=== PATIENT | male | born 1965 | race Caucasian/White ===

== ENCOUNTER 2016-07-09 16:52 | Inpatient (IN) | payer OTHER ==
[2016-07-09] MEDS ORDERED: SODIUM CHLORIDE 0.9% 1,000 ML IV ONE ×2 (17:37→21:03)
--- NOTE | 2016-07-09 17:43 | ED ---
General Adult HPI - General Source: patient, RN notes reviewed Mode of arrival: wheelchair Limitations: no limitations <Henrry Vega - Last Filed: 07/09/16 18:40> <Maikel Larsen - Last Filed: 07/09/16 20:43> - General Chief complaint: Syncope Stated complaint: Nurse sent/Syncope x2/ poss BP Time Seen by Provider: 07/09/16 17:30 - History of Present Illness Initial comments: This is a 51-year-old male to the emergency department with past medical history significant for CVA with residual deficit of dysphagia so patient has a PEG tube in place and is unable to eat or swallow anything by mouth. Patient states he's been a little bit lightheaded and has passed out twice at home and over the last week his been over 100 heart rate has blood pressures been low and particularly low today in the 80s and 90s according to his home health care nurse. He was sent in because of the syncopal episodes. Patient states she's had no palpitations she had no chest pain patient denies any recent fever chill or new cough. Patient denies any back pain. Patient denies any injury with the syncopal episodes. Patient denies any nausea vomiting or diarrhea. Patient denies headache patient denies any numbness or focal weakness. (Henrry Vega) - Related Data Home Medications Medication Instructions Recorded Confirmed Gabapentin [Neurontin] 300 mg PEG/G-TUBE TID PRN 08/13/15 07/09/16 Insulin Aspart [NovoLOG] See Protocol SQ AC-TID 08/13/15 07/09/16 Aspirin 325 mg PEG/G-TUBE HS 07/09/16 07/09/16 Atorvastatin [Lipitor] 80 mg PEG/G-TUBE HS 07/09/16 07/09/16 Cyclobenzaprine [Flexeril] 10 mg PEG/G-TUBE TID PRN 07/09/16 07/09/16 Insulin Glargine [Lantus] 25 unit SQ HS 07/09/16 07/09/16 Lisinopril 40 mg PEG/G-TUBE DAILY 07/09/16 07/09/16 Previous Rx's Medication Instructions Recorded Ipratropium-Albuterol Nebulize 3 ml INHALATION RT-QID ampul.neb 06/22/16 [Duoneb 0.5 mg-3 mg/3 ml Soln] Allergies Allergy/AdvReac Type Severity Reaction Status Date / Time venom-honey bee Allergy Anaphylaxis Verified 07/09/16 19:47 [bee venom (honey bee)] Review of Systems ROS Other: All systems not noted in ROS Statement are negative. <Henrry Vega - Last Filed: 07/09/16 18:40> ROS Other: All systems not noted in ROS Statement are negative. <Maikel Lrasen - Last Filed: 07/09/16 20:43> ROS Statement: Those systems with pertinent positive or pertinent negative responses have been documented in the HPI. (Henrry Vega) (Maikel Larsen) Past Medical History Past Medical History: CVA/TIA, Diabetes Mellitus, Deep Vein Thrombosis (DVT), GERD/Reflux, Hyperlipidemia, Hypertension, Musculoskeletal Disorder, Pulmonary Embolus (PE) Additional Past Medical History / Comment(s): RECENT ABD PAIN. LUMBAR STENOSIS. HX DVT LT CALF, THEN PE. HX IBS. COLON POLYPS, hypertensive cardio vascular disease with left ventricular hypertrophy. History of Any Multi-Drug Resistant Organisms: None Reported Past Surgical History: Appendectomy, Cholecystectomy Additional Past Surgical History / Comment(s): EXPLORATORY LAPAROTOMY, FUSION L4 -L5, colonoscopy Past Anesthesia/Blood Transfusion Reactions: No Reported Reaction Past Psychological History: Anxiety Additional Psychological History / Comment(s): Pt lives with friends. He rents a room. He is independent. Smoking Status: Never smoker Past Alcohol Use History: Rare Additional Past Alcohol Use History / Comment(s): Patient has been a lifelong nonsmoker. He drinks alcohol rarely. 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 Past Drug Use History: None Reported - Past Family History Mother Family Medical History: Cancer, Deep Vein Thrombosis (DVT) <Henrry Vega - Last Filed: 07/09/16 18:40> General Exam Limitations: no limitations <Henrry Vega - Last Filed: 07/09/16 18:40> <Maikel Larsen - Last Filed: 07/09/16 20:43> - General Exam Comments Initial Comments: GENERAL: Patient is well-developed and well-nourished. Patient is nontoxic and well- hydrated and is in no acute distress. ENT: Neck is soft and supple. No significant lymphadenopathy is noted. Oropharynx is clear. Moist mucous membranes. Neck has full range of motion without eliciting any pain. EYES: The sclera were anicteric and conjunctiva were pink and moist. Extraocular movements were intact and pupils were equal round and reactive to light. Eyelids were unremarkable. PULMONARY: Unlabored respirations. Good breath sounds bilaterally. No audible rales rhonchi or wheezing was noted. CARDIOVASCULAR: Patient is tachycardic at about 110 beats a minute ABDOMEN: Soft and nontender with normal bowel sounds. No palpable organomegaly was noted. There is no palpable pulsatile mass. SKIN: Skin is clear with no lesions or rashes and otherwise unremarkable. NEUROLOGIC: Patient is alert and oriented x3. Cranial nerves II through XII are grossly intact. Motor and sensory are also intact. Normal speech, volume and content. Symmetrical smile. MUSCULOSKELETAL: Normal extremities with adequate strength and full range of motion. No lower extremity swelling or edema. No calf tenderness. LYMPHATICS: No significant lymphadenopathy is noted PSYCHIATRIC: Normal psychiatric evaluation. Normal interpersonal interactions appears functionally intact in deals appropriately with others. No signs of depression. No signs of anxiety. (Henrry Vega) Medical Decision Making - Lab Data Result diagrams: 07/09/16 17:46 07/09/16 17:46 <Henrry Vega - Last Filed: 07/09/16 18:40> - Lab Data Result diagrams: 07/09/16 17:46 07/09/16 17:46 <Maikel Larsen - Last Filed: 07/09/16 20:43> - Medical Decision Making EKG shows sinus tachycardia with an occasional PVC at 117 bpm. It was on a 28 QRS 74 QT interval 338 QTC 471 patient's EKG shows no ST segment elevation or depression or T-wave abnormality is noted. Dr. Kim will be taking over the care of this patient at 7 PM (Henrry Vega) - Lab Data Lab Results 07/09/16 07/09/16 07/09/16 Range/Units 17:46 17:46 17:46 WBC 10.4 (3.8-10.6) k/uL RBC 4.64 (4.30-5.90) m/uL Hgb 14.7 (13.0-17.5) gm/dL Hct 44.8 (39.0-53.0) % MCV 96.5 (80.0-100.0) fL MCH 31.7 (25.0-35.0) pg MCHC 32.9 (31.0-37.0) g/dL RDW 13.7 (11.5-15.5) % Plt Count 285 (150-450) k/uL Neutrophils % 81 % Lymphocytes % 13 % Monocytes % 4 % Eosinophils % 1 % Basophils % 0 % Neutrophils # 8.4 H (1.3-7.7) k/uL Lymphocytes # 1.3 (1.0-4.8) k/uL Monocytes # 0.4 (0-1.0) k/uL Eosinophils # 0.1 (0-0.7) k/uL Basophils # 0.0 (0-0.2) k/uL PT (9.0-12.0) sec INR (<1.1) APTT (22.0-30.0) sec D-Dimer (<0.60) mg/L FEU Sodium 142 (137-145) mmol/L Potassium 4.7 (3.5-5.1) mmol/L Chloride 95 L (98-107) mmol/L Carbon Dioxide 35 H (22-30) mmol/L Anion Gap 12 mmol/L BUN 32 H (9-20) mg/dL Creatinine 0.94 (0.66-1.25) mg/dL Est GFR (MDRD) Af Amer >60 (>60 ml/min/1.73 sqM) Est GFR (MDRD) Non-Af >60 (>60 ml/min/1.73 sqM) Glucose 256 H (74-99) mg/dL Calcium 9.7 (8.4-10.2) mg/dL Magnesium 1.8 (1.6-2.3) mg/dL Total Bilirubin 0.6 (0.2-1.3) mg/dL AST 40 (17-59) U/L ALT 51 (21-72) U/L Alkaline Phosphatase 98 (38-126) U/L Total Creatine Kinase <20 L (55-170) U/L CK-MB (CK-2) <0.2 (0.0-2.4) ng/mL CK-MB (CK-2) Rel Index Troponin I <0.012 (0.000-0.034) ng/mL Total Protein 7.4 (6.3-8.2) g/dL Albumin 3.9 (3.5-5.0) g/dL 07/09/16 Range/Units 17:46 WBC (3.8-10.6) k/uL RBC (4.30-5.90) m/uL Hgb (13.0-17.5) gm/dL Hct (39.0-53.0) % MCV (80.0-100.0) fL MCH (25.0-35.0) pg MCHC (31.0-37.0) g/dL RDW (11.5-15.5) % Plt Count (150-450) k/uL Neutrophils % % Lymphocytes % % Monocytes % % Eosinophils % % Basophils % % Neutrophils # (1.3-7.7) k/uL Lymphocytes # (1.0-4.8) k/uL Monocytes # (0-1.0) k/uL Eosinophils # (0-0.7) k/uL Basophils # (0-0.2) k/uL PT 10.7 (9.0-12.0) sec INR 1.1 (<1.1) APTT 23.5 (22.0-30.0) sec D-Dimer 3.18 H (<0.60) mg/L FEU Sodium (137-145) mmol/L Potassium (3.5-5.1) mmol/L Chloride (98-107) mmol/L Carbon Dioxide (22-30) mmol/L Anion Gap mmol/L BUN (9-20) mg/dL Creatinine (0.66-1.25) mg/dL Est GFR (MDRD) Af Amer (>60 ml/min/1.73 sqM) Est GFR (MDRD) Non-Af (>60 ml/min/1.73 sqM) Glucose (74-99) mg/dL Calcium (8.4-10.2) mg/dL Magnesium (1.6-2.3) mg/dL Total Bilirubin (0.2-1.3) mg/dL AST (17-59) U/L ALT (21-72) U/L Alkaline Phosphatase (38-126) U/L Total Creatine Kinase (55-170) U/L CK-MB (CK-2) (0.0-2.4) ng/mL CK-MB (CK-2) Rel Index Troponin I (0.000-0.034) ng/mL Total Protein (6.3-8.2) g/dL Albumin (3.5-5.0) g/dL (Maikel Larsen) Disposition <Henrry Vega - Last Filed: 07/09/16 18:40> <Maikel Larsen - Last Filed: 07/09/16 20:43> Clinical Impression: Pulmonary embolus Disposition: ADMITTED IP TO THIS HOSP Condition: Fair
[2016-07-09 17:59] LABS: Basophils % (A) 0 %; CH 32.3; CHCM 33.7; Eosinophils # (A) 0.1 k/uL (0-0.7); Eosinophils % (A) 1 %; HCT 44.8 % (39.0-53.0); HDW 3.14; HGB 14.7 gm/dL (13.0-17.5); Luc # (Auto) 0.15; Luc % (Auto) 2; Lymphocytes # (A) 1.3 k/uL (1.0-4.8); Lymphocytes % (A) 13 %; MCH 31.7 pg (25.0-35.0); MCHC 32.9 g/dL (31.0-37.0); MCV 96.5 fL (80.0-100.0); Mean Platelet Volume 6.8; Monocytes # (A) 0.4 k/uL (0-1.0); Monocytes % (A) 4 %; Neutrophils # (A) 8.4 k/uL (1.3-7.7); Neutrophils % (A) 81 %; RBC 4.64 m/uL (4.30-5.90); RDW 13.7 % (11.5-15.5); WBC 10.4 k/uL (3.8-10.6)
[2016-07-09 18:01] LABS: ALT 51 U/L (21-72); AST 40 U/L (17-59); Alkaline Phosphatase 98 U/L (38-126); Anion Gap 12 mmol/L; Blood Urea Nitrogen 32 mg/dL (9-20); Calcium 9.7 mg/dL (8.4-10.2); Carbon Dioxide 35 mmol/L (22-30); Chloride 95 mmol/L (98-107); Glucose 256 mg/dL (74-99); Magnesium 1.8 mg/dL (1.6-2.3); Non-African American GFR(MDRD) >60 (>60 ml/min/1.73 sqM); Potassium 4.7 mmol/L (3.5-5.1); Sodium 142 mmol/L (137-145); Total Bilirubin 0.6 mg/dL (0.2-1.3); Total Protein 7.4 g/dL (6.3-8.2)
[2016-07-09 18:08] LABS: INR 1.1 (<1.1); Partial Thromboplastin Time 23.5 sec (22.0-30.0); Prothrombin Time 10.7 sec (9.0-12.0)
--- NOTE | 2016-07-09 18:15 | XR ---
EXAMINATION TYPE: XR chest 2V DATE OF EXAM: 07/09/2016 6:06 PM COMPARISON: 06/20/2016 HISTORY: Syncope and chest pain TECHNIQUE: Frontal and lateral views of the chest are obtained. FINDINGS: Heart and mediastinum are normal. Lungs are clear. Diaphragm is normal. Bony thorax is int act. There are chest leads. IMPRESSION: Normal chest. There is removal of the right central venous catheter compared to old exam .
[2016-07-09 18:17] LABS: Creatine Kinase <20 U/L (55-170)
[2016-07-09 18:29] LABS: Creatine Kinase MB <0.2 ng/mL (0.0-2.4); Troponin I <0.012 ng/mL (0.000-0.034)
[2016-07-09] MEDS ORDERED: RX INFO: IV CONTRAST WAS GIVEN 1 EACH MISC MISCELLANE PRN (18:32)
--- NOTE | 2016-07-09 19:24 | CT ---
EXAMINATION TYPE: CT chest angio for PE DATE OF EXAM: 07/09/2016 7:00 PM COMPARISON: NONE HISTORY: Syncope with elevated d-dimer. CT DLP: 312.50 mGycm Automated exposure control for dose reduction was used. CONTRAST: CT Chest for pulmonary embolism performed with with IV Contrast, patient injected with 100 mL of Omni paque 300. FINDINGS: There are 3-D post processed images. There is a filling defect in the lateral right lower lobe pulmonary artery. I see no filling defects in the major branches. There is no evidence of aortic aneurysm or dissection. There is no mediastinal adenopathy. There are no hilar masses. There is mild interstitial density in the lungs consistent with mild fibrosis. There is no evidence o f a pulmonary mass. There is no pleural effusion. IMPRESSION: The exam is positive for pulmonary embolism. There is embolism in the right lower lobe pulmonary nilesh ry in the lateral basal segment. Mild fibrotic changes.
[2016-07-09] MEDS ORDERED: HEPARIN SODIUM,PORCINE 5,000 UNIT/ML 1 ML VIAL IV ONE (19:38)
[2016-07-09] MEDS ORDERED: HEPARIN SODIUM,PORCINE 5,000 UNIT/ML 1 ML VIAL IV PRN (19:38)
[2016-07-09] MEDS: SODIUM CHLORIDE 0.9% 1,000 ML IV SCH ×2 (20:11→23:16)
[2016-07-09] MEDS: HEPARIN SODIUM,PORCINE/D5W PMX 25,000 UNIT in DEXTROSE/WATER 1 500ML.BAG IV SCH (20:13)
[2016-07-09] MEDS ORDERED: ONDANSETRON 4 MG/2 ML VIAL IVP PRN (20:39)
[2016-07-09] MEDS ORDERED: ACETAMINOPHEN ORAL SUSP 160 MG/5 ML CUP PEG/G-TUBE PRN (20:39)
[2016-07-09] MEDS ORDERED: NALOXONE 0.4 MG/ML 1 ML VIAL IV PRN (20:39)
[2016-07-09] MEDS ORDERED: MAG HYDROX/AL HYDROX/SIMETH 30 ML CUP PEG/G-TUBE PRN (20:39)
[2016-07-09] MEDS ORDERED: CYCLOBENZAPRINE 10 MG TAB PEG/G-TUBE PRN (20:42)
[2016-07-09] MEDS ORDERED: GABAPENTIN 300 MG CAP PEG/G-TUBE PRN (20:42)
--- NOTE | 2016-07-09 22:05 | US ---
EXAMINATION TYPE: US venous doppler duplex LE BI DATE OF EXAM: 07/09/2016 8:42 PM COMPARISON: NONE CLINICAL HISTORY: PE, started heparin, hx of DVT x many years ago. SIDE PERFORMED: bilateral VESSELS IMAGED: External Iliac Vein (EIV) Common Femoral Vein Deep Femoral Vein Greater Saphenous Vein * Femoral Vein Popliteal Vein Small Saphenous Vein * Proximal Calf Veins (* superficial vessels) Right Leg: Negative for DVT Left Leg: Negative for DVT TECHNOLOGIST IMPRESSION: IMPRESSION: Normal exam. No evidence of deep venous thrombosis.
[2016-07-09] MEDS: INSULIN GLARGINE 100 UNIT/ML 10 ML VIAL SQ SCH (23:17)
[2016-07-09] MEDS: ATORVASTATIN 80 MG TAB PEG/G-TUBE SCH (23:17)
[2016-07-09] MEDS: ALPRAZolam 0.25 MG TAB PO PRN (23:17)
[2016-07-09] MEDS: ASPIRIN 325 MG TAB PEG/G-TUBE SCH (23:17)
[2016-07-09] MEDS: INSULIN LISPRO (humaLOG) 300 UNIT/3 ML VIAL SQ SCH (23:18)
[2016-07-09 23:19] LABS: Glucose,Whole Blood 139 mg/dL (75-99)
[2016-07-10 06:03] LABS: Glucose,Whole Blood 133 mg/dL (75-99)
[2016-07-10] MEDS: INSULIN LISPRO (humaLOG) 300 UNIT/3 ML VIAL SQ SCH ×4 (06:07→20:59)
[2016-07-10] MEDS: SODIUM CHLORIDE 0.9% 1,000 ML IV SCH ×4 (06:27→20:49)
[2016-07-10 06:44] LABS: Basophils % (A) 1 %; CH 32.5; CHCM 33.1; Eosinophils # (A) 0.1 k/uL (0-0.7); Eosinophils % (A) 1 %; HCT 37.7 % (39.0-53.0); HDW 3.11; HGB 12.2 gm/dL (13.0-17.5); Luc # (Auto) 0.14; Luc % (Auto) 2; Lymphocytes # (A) 1.5 k/uL (1.0-4.8); Lymphocytes % (A) 19 %; MCHC 32.3 g/dL (31.0-37.0); MCV 98.8 fL (80.0-100.0); Mean Platelet Volume 7.8; Monocytes # (A) 0.4 k/uL (0-1.0); Monocytes % (A) 5 %; Neutrophils # (A) 5.9 k/uL (1.3-7.7); Neutrophils % (A) 73 %; RBC 3.81 m/uL (4.30-5.90); RDW 13.8 % (11.5-15.5); WBC 8.1 k/uL (3.8-10.6); WBC (Perox) 8.42
[2016-07-10 07:16] LABS: Anion Gap 7 mmol/L; Blood Urea Nitrogen 28 mg/dL (9-20); Calcium 8.4 mg/dL (8.4-10.2); Carbon Dioxide 32 mmol/L (22-30); Chloride 102 mmol/L (98-107); Glucose 127 mg/dL (74-99); Non-African American GFR(MDRD) >60 (>60 ml/min/1.73 sqM); Potassium 4.1 mmol/L (3.5-5.1); Sodium 141 mmol/L (137-145)
[2016-07-10] MEDS: LISINOPRIL 20 MG TAB PEG/G-TUBE SCH (08:21)
[2016-07-10] MEDS: IPRATROPIUM-ALBUTEROL 3 ML NEB INHALATION SCH ×4 (08:49→20:59)
[2016-07-10 10:09] VITALS: BMI 29.0
[2016-07-10] MEDS: HEPARIN SODIUM,PORCINE/D5W PMX 25,000 UNIT in DEXTROSE/WATER 1 500ML.BAG IV SCH ×2 (11:27→23:16)
[2016-07-10 11:47] LABS: Glucose,Whole Blood 136 mg/dL (75-99)
[2016-07-10 12:24] LABS: Hemoglobin A1C 9.2 % (4.2-6.1)
--- NOTE | 2016-07-10 14:30 | P.CNPUL ---
History of Present Illness Consult date: 07/10/16 Reason for consult: pulmonary embolism Chief complaint: syncope History of present illness: this is a 51-year-old male who presented to the emergency department after he states he passed out at home. The patient was recently admitted in June 2016 and discharged 06/22/2016 after ischemic CVA. The patient was in rehab and discharged a few days ago to home. He states he was doing well at home until he bent over to turkey picker his laundry and he passed out. He became dizzy. Patient states his blood pressures been low for the past 2-3 days per his home health care nurse. The patient has had a cough since his ICU stay with the stroke. He has had dysphagia and a PEG tube was placed. The patient denies chest pain or shortness of breath. He denies fevers and chills at home. The patient does have a history of a DVT he states in the . He says he was put on heparin and sent home with Coumadin. He is not currently on any blood thinners at home. Although he does take aspirin daily. Review of Systems All systems: negative Past Medical History Past Medical History: CVA/TIA, Diabetes Mellitus, Deep Vein Thrombosis (DVT), GERD/Reflux, Hyperlipidemia, Hypertension, Musculoskeletal Disorder, Pulmonary Embolus (PE), Syncope Additional Past Medical History / Comment(s): RECENT ABD PAIN. LUMBAR STENOSIS. HX DVT LT CALF, THEN PE. HX IBS. COLON POLYPS, hypertensive cardio vascular disease with left ventricular hypertrophy. cataracts History of Any Multi-Drug Resistant Organisms: None Reported Past Surgical History: Appendectomy, Cholecystectomy Additional Past Surgical History / Comment(s): EXPLORATORY LAPAROTOMY, FUSION L4 -L5, colonoscopy Past Anesthesia/Blood Transfusion Reactions: No Reported Reaction Past Psychological History: Anxiety Additional Psychological History / Comment(s): Pt lives with friends. He rents a room. He is independent. Smoking Status: Never smoker Past Alcohol Use History: Rare Additional Past Alcohol Use History / Comment(s): Patient has been a lifelong nonsmoker. He drinks alcohol rarely. 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 Past Drug Use History: None Reported - Past Family History Mother Family Medical History: Cancer, Deep Vein Thrombosis (DVT) Medications and Allergies Home Medications Medication Instructions Recorded Confirmed Type Gabapentin [Neurontin] 300 mg PEG/G-TUBE TID PRN 08/13/15 07/09/16 History Insulin Aspart [NovoLOG] See Protocol SQ AC-TID 08/13/15 07/09/16 History ALPRAZolam [Alprazolam] 0.25 mg PO BID PRN 07/09/16 07/09/16 History Aspirin 325 mg PEG/G-TUBE HS 07/09/16 07/09/16 History Atorvastatin [Lipitor] 80 mg PEG/G-TUBE HS 07/09/16 07/09/16 History Cyclobenzaprine [Flexeril] 10 mg PEG/G-TUBE TID PRN 07/09/16 07/09/16 History Insulin Glargine [Lantus] 25 unit SQ HS 07/09/16 07/09/16 History Lisinopril 40 mg PEG/G-TUBE DAILY 07/09/16 07/09/16 History Allergies Allergy/AdvReac Type Severity Reaction Status Date / Time venom-honey bee Allergy Anaphylaxis Verified 07/09/16 19:47 [bee venom (honey bee)] Physical Exam Osteopathic Statement: *. No significant issues noted on an osteopathic structural exam other than those noted in the History and Physical/Consult. Vitals: Vital Signs Temp Pulse Pulse Resp BP BP Pulse Ox 07/10/16 12:02 92 07/10/16 11:29 90 17 123/89 95 07/10/16 08:59 96 07/10/16 08:51 92 94 L 07/10/16 08:00 96.6 F L 94 17 105/65 94 L 07/10/16 04:00 97.4 F L 94 14 109/62 95 07/10/16 00:00 108 H 16 07/09/16 21:54 99.8 F H 104 H 18 99/61 98 07/09/16 21:12 113 H 20 85/52 96 07/09/16 20:54 97.3 F L 108 H 14 102/58 96 Intake and Output 07/09/16 07/10/16 07/10/16 22:59 06:59 14:59 Intake Total 321.442 Output Total 0 Balance 321.442 Intake: Intake, IV Titration 321.442 Amount Heparin Sodium,Porcine/ 321.442 D5w Pmx 25,000 unit In Dextrose/Water 1 500ml. bag @ 18 UNITS/KG/HR 33. 31 mls/hr IV .Q15H1M [facility] Rx#:[id number] Oral 0 Output: Urine 0 Other: # Voids 1 Weight 93.3 kg 94.4 kg 94.4 kg Patient Weight 07/11/16 06:59 Weight 94.4 kg Gen.: Patient is alert and oriented 3, no acute distress cardiovascular: Regular rate and rhythm, S1/S2 Lungs: Clear to auscultation bilaterally no wheezes rales or rhonch Abdomen: Soft nontender nondistended positive bowel sounds PEG tube in place Extremities: No edema Results - Laboratory Findings CBC and BMP: 07/10/16 05:51 07/10/16 05:51 PT/INR, D-dimer PT 10.7 sec (9.0-12.0) 07/09/16 17:46 INR 1.1 (<1.1) 07/09/16 17:46 D-Dimer 3.18 mg/L FEU (<0.60) H 07/09/16 17:46 Abnormal lab findings: Abnormal Labs 07/09/16 07/10/16 07/10/16 23:17 01:55 05:51 RBC 3.81 L Hgb 12.2 L Hct 37.7 L APTT 37.5 H Carbon Dioxide BUN Creatinine Glucose POC Glucose (mg/dL) 139 H 07/10/16 07/10/16 07/10/16 05:51 06:02 11:05 RBC Hgb Hct APTT 64.8 H Carbon Dioxide 32 H BUN 28 H Creatinine 0.60 L Glucose 127 H POC Glucose (mg/dL) 133 H 07/10/16 11:38 RBC Hgb Hct APTT Carbon Dioxide BUN Creatinine Glucose POC Glucose (mg/dL) 136 H - Diagnostic Findings Chest x-ray: report reviewed, image reviewed CT scan - chest: report reviewed, image reviewed Assessment and Plan Plan: right lower lobe subsegmental pulmonary embolism History of left lower extremity DVT Recent ischemic CVA, left brainstem Syncope, likely secondary to hypotension Dysphasia with PEG tube Mild anemia Mild hyperglycemia O2 to maintain saturation greater than or equal to 88% Heparin drip Would send patient home on oral anticoagulant, will have case management check with insurance for coverage Cardiology recommendations Lower extremities Doppler negative for DVT Given patient's history of DVT, patient should be on lifelong anticoagulation Blood pressure and blood sugar control Thank you for this consultation we'll continue to follow along
[2016-07-10 16:47] LABS: Glucose,Whole Blood 119 mg/dL (75-99)
[2016-07-10 20:42] LABS: Glucose,Whole Blood 145 mg/dL (75-99)
[2016-07-10] MEDS: ASPIRIN 325 MG TAB PEG/G-TUBE SCH (20:49)
[2016-07-10] MEDS: ALPRAZolam 0.25 MG TAB PO PRN (20:49)
[2016-07-10] MEDS: ATORVASTATIN 80 MG TAB PEG/G-TUBE SCH (20:49)
[2016-07-10] MEDS: INSULIN GLARGINE 100 UNIT/ML 10 ML VIAL SQ SCH (20:59)
--- NOTE | 2016-07-10 21:08 | CONS ---
DATE OF CONSULTATION: Mr. Corona is a 51-year-old male who was just discharged from the hospital after being admitted with a cerebrovascular accident. He presented with a syncopal episode. According to him, he went to the rehab and subsequently went home. 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 He came to. Later on during the day he was trying to put some clothes in the washing machine and he had the same feeling. He had no associated palpitations. No change in his breathing. He had no tightness in the chest. He had no nausea, no vomiting. He had no tonic-clonic seizure activity afterward and he had no problem recognizing care people or having focal weakness. During his last hospitalization he underwent transesophageal echocardiogram by Dr. Davis and was found to have no evidence of intracardiac thrombus with a preserved systolic function and no significant valvular disease. Patient has no history of myocardial infarction. On presentation, a CT angiogram of the chest that was consistent with pulmonary embolism in the right lower lobe. His duplex scan of the lower extremities was negative. His coronary risk factors are positive for diabetes, hyperlipidemia, he is a nonsmoker. He is hypertensive. His medications include: 1. Lisinopril 40 mg daily. 2. Insulin. 3. Flexeril. 4. Lipitor 80 mg daily. 5. Aspirin. 6. Apresoline. Of note that during his last admission he had an episode of hypernatremia and sinus tachycardia as well as and he continues to have some difficulty swallowing and that is why he has a PEG tube. REVIEW OF SYSTEMS: RESPIRATORY SYSTEM: He has no recent wheezing. No cough. No history of obstructive lung disease. GI system: No recent GI bleeding. No peptic ulcer disease. : He has a PEG tube. Nervous system: He had a recent cerebrovascular accident. PHYSICAL EXAMINATION: A 51 -year-old male, alert, oriented, in no apparent distress. Blood pressure 123/80 with a heart in the 90s. HEAD: Normocephalic. EYES: Sclerae anicteric. NECK: Good upstroke. No bruit. LUNGS: Clear to auscultation. HEART: Regular rate rhythm. S1, S2, no S3, with a systolic murmur. No diastolic murmur. ABDOMEN: Soft, nontender. Positive bowel sounds. No organomegaly. PEG tube in place. EXTREMITIES: No edema. Lab data revealed a hemoglobin of 12.2. BUN and creatinine 28 and 0.6. Troponin less than 0.012. Potassium of 4.1. His d-dimer was 3.18. His sodium is 142. EKG revealed a sinus mechanism with occasional PACs and nonspecific ST-T wave changes. IMPRESSION: 1. Syncopal episode. The description is suggestive of orthostatic hypotension although CT angiogram is consistent with pulmonary embolism. 2. Status post recent stroke. 3. History of hypertension. 4. Diabetes. 5. Hyperlipidemia. RECOMMENDATIONS: From the cardiac standpoint, I will continue on the IV heparin, patient should be evaluated to see if he is a candidate for Xarelto. I see no indication to repeat the echocardiogram at this time. Depending on his progress, further recommendation will be made.
--- NOTE | 2016-07-10 23:23 | HP ---
DATE OF ADMISSION: 07/09/2016 A 51-year-old white male with positive pulmonary embolism. HISTORY OF PRESENT ILLNESS: This is a 51-year-old with past history of recent stroke with expressive dysphasia with a PEG tube placement, unable to swallow food or liquids. He noticed some syncope over the past week. His blood pressure has been running low and heart rate has been running high. Due to the syncope he was brought to the hospital and was found to have positive pulmonary embolism. No nausea, vomiting, diarrhea. Does have difficulty speaking due to stroke and swallowing obviously. Medications: 1. Neurontin 300 t.i.d. for the PEG tube for seizures and neuropathy diabetes mellitus protocol. 2. Lipitor 80 mg daily. 3. Lantus 25 units daily. 4. Lisinopril 40 mg PEG tube daily. 5. Lipitor 80 mg PEG tube daily. 6. Aspirin 325 mg daily. REVIEW OF SYSTEMS: 14 point review of systems negative except for as mentioned in HPI. PAST SURGICAL HISTORY: Appendectomy, cholecystectomy, exploratory laparotomy, fusion L4-L5. PAST PSYCHIATRIC HISTORY: History of anxiety. SOCIAL HISTORY: He lives with friends, ( ) independent. He does not smoke. Rare alcohol. 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 He has severe anxiety. FAMILY HISTORY: Mother with cancer and DVT. PHYSICAL EXAM: GENERAL: Well nourished, white male, obese. CARDIOVASCULAR: S1, S2. LUNGS: Transmitted upper airway sounds. HEMATOLOGIC: Negative Homans. PSYCHIATRIC: Fair mood and affect. OPHTHALMOLOGIC: Pupils equal, round and react to light and accommodation. LUNGS: Scattered rhonchi and wheeze, decreased breath sounds x4. HEMATOLOGIC: Negative Homans. GI: PEG tube seen. Normal bowel sounds. ENT: Speech is kind of slurred but does give accurate answers. Some mild facial paresis on the left side. No significant adenopathy. White count is 10.4, hemoglobin is 14.7, BUN 32, creatinine 0.94. CT of the chest reviewed. Elevated d-dimer 3.18. ASSESSMENT: 1. Acute pulmonary embolism. 2. Hypertension. 3. Dyslipidemia. 4. Prior expressive aphasia secondary to significant recent stroke. He is started on IV heparin. Pulmonary consulted. Continue current home medications. PEG tube and tube feedings.
[2016-07-10] MEDS ORDERED: ZOLPIDEM 5 MG TAB PO PRN (23:57)
[2016-07-11] MEDS: SODIUM CHLORIDE 0.9% 1,000 ML IV SCH ×2 (04:58→12:04)
[2016-07-11 06:02] LABS: Basophils % (A) 0 %; CH 32.5; CHCM 33.6; Eosinophils # (A) 0.1 k/uL (0-0.7); Eosinophils % (A) 1 %; HCT 36.6 % (39.0-53.0); HDW 3.14; HGB 11.8 gm/dL (13.0-17.5); Luc # (Auto) 0.11; Luc % (Auto) 1; Lymphocytes # (A) 1.1 k/uL (1.0-4.8); Lymphocytes % (A) 14 %; MCH 31.3 pg (25.0-35.0); MCHC 32.1 g/dL (31.0-37.0); MCV 97.2 fL (80.0-100.0); Mean Platelet Volume 7.6; Monocytes # (A) 0.4 k/uL (0-1.0); Monocytes % (A) 5 %; Neutrophils # (A) 6.3 k/uL (1.3-7.7); Neutrophils % (A) 78 %; RBC 3.77 m/uL (4.30-5.90); RDW 13.8 % (11.5-15.5); WBC 8.1 k/uL (3.8-10.6); WBC (Perox) 8.98
[2016-07-11 06:25] LABS: Glucose,Whole Blood 138 mg/dL (75-99)
[2016-07-11] MEDS: INSULIN LISPRO (humaLOG) 300 UNIT/3 ML VIAL SQ SCH ×4 (06:29→22:01)
[2016-07-11] MEDS: IPRATROPIUM-ALBUTEROL 3 ML NEB INHALATION SCH ×5 (08:07→21:38)
[2016-07-11] MEDS: LISINOPRIL 20 MG TAB PEG/G-TUBE SCH (09:29)
[2016-07-11] MEDS ORDERED: SCOPOLAMINE 1.5MG/72HR PATCH TRANSDERM SCH (12:00)
[2016-07-11] MEDS: guaiFENesin-Coden 100-10MG/5ML 10 ML CUP PO PRN ×2 (12:03→17:31)
[2016-07-11 12:18] LABS: Glucose,Whole Blood 126 mg/dL (75-99)
--- NOTE | 2016-07-11 12:22 | P.PN ---
Subjective 51-year-old gentleman being seen on rounds this morning. Chief complaint this morning "could not sleep last night secondary to a frequent nonproductive cough "needing to suction out a lot of oral secretions has been ongoing for the past several days. Did note the secretions were clear. Patient does have a dry frequent harsh nonproductive cough. Hospital course This is a 51-year-old gentleman who presented on the day of admission to the emergency room after patient stated that he was at home when he felt dizzy lightheaded and passed out. Patient was recently discharged from [facility] rehab a few days prior to the incident. Patient was recuperating at the facility after an ischemic CVA which resulted in dysphagia requiring a PEG tube for nutritional support patient stated he had been doing relatively well. Patient stated he was not experiencing any shortness of breath or chest pain. Patient additionally stated that he was tolerating the tube feeds and was doing bolus feeds at home. Computed tomography scan of the chest on admission showed a right lower lobe sub-segmental pulmonary emboli. Patient currently is being followed by pulmonology and cardiology service. Patient will need to be initiated on oral anticoagulation. Dopplers to the bilateral lower extremities were negative for evidence of a DVT. Patient is a type II diabetic blood sugars as admission been ranging 1:30 02/06/1944. Patient has been maintained on Lantus 25 units at bedtime. Currently patient is on IV heparin until oral anticoagulation can be initiated Objective - Vital Signs Vital signs: Vital Signs Temp 97.9 F 07/11/16 08:00 Pulse 92 07/11/16 08:18 Resp 18 07/11/16 08:00 BP 123/78 07/11/16 08:00 Pulse Ox 92 L 07/11/16 08:00 Intake & Output 07/10/16 07/11/16 07/11/16 18:59 06:59 18:59 Intake Total 178.558 282.935 0 Output Total 375 750 Balance -196.442 282.935 -750 Weight 94.4 kg 96.2 kg Intake: Intake, IV Titration 178.558 282.935 Amount Heparin Sodium,Porcine/ 178.558 282.935 D5w Pmx 25,000 unit In Dextrose/Water 1 500ml. bag @ 18 UNITS/KG/HR 33. 31 mls/hr IV .Q15H1M [facility] Rx#:[id number] Oral 0 Output: Urine 375 750 Other: # Voids 1 1 # Bowel Movements 1 - Exam Physical exam A 51-year-old gentleman who is awake is alert and oriented to person place and event states is bothersome cough coughing frequently Lungs essentially clear with adequate air movement on room air no conversational dyspnea noted Heart S1-S2 audible and regular denying chest pain Abdomen soft nontender PEG tube in place no redness at the site active bowel tones. States urinating no difficulty. No frequent stooling. No reports of nausea vomiting Extremities no edema to the bilateral lower extremities - Labs CBC & Chem 7: 07/11/16 05:35 07/10/16 05:51 Labs: Abnormal Lab Results - Last 24 Hours (Table) 07/10/16 07/10/16 07/11/16 Range/Units 16:45 20:41 05:35 RBC 3.77 L (4.30-5.90) m/uL Hgb 11.8 L (13.0-17.5) gm/dL Hct 36.6 L (39.0-53.0) % APTT (22.0-30.0) sec POC Glucose (mg/dL) 119 H 145 H (75-99) mg/dL 07/11/16 07/11/16 Range/Units 05:35 06:23 RBC (4.30-5.90) m/uL Hgb (13.0-17.5) gm/dL Hct (39.0-53.0) % APTT 39.8 H (22.0-30.0) sec POC Glucose (mg/dL) 138 H (75-99) mg/dL Assessment and Plan Plan: Impression Present on admission acute syncopal episode with elevated d-dimer suspect due to a right lower lobe pulmonary emboli Type 2 diabetes insulin requiring hemoglobin A1c 9.2 07/09/2016 Hypertension Present on admission syncopal episode suspect due to orthostatic hypotension A recent CVA 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 Impression and the plan of care have been dictated as directed. Perla Lua nurse practitioner acting as a scribe for dr perez
--- NOTE | 2016-07-11 13:17 | P.PN ---
Subjective Principal diagnosis: Syncope Patient seen and examined. Patient states that he is starting to feel better. He is complaining of cough productive of phlegm. He denies fevers and chills. He denies any more dizziness or syncopal episodes. Objective - Vital Signs Vital signs: Vital Signs Temp 97.9 F 07/11/16 08:00 Pulse 92 07/11/16 08:18 Resp 18 07/11/16 08:00 BP 123/78 07/11/16 08:00 Pulse Ox 92 L 07/11/16 08:00 Intake & Output 07/10/16 07/11/16 07/11/16 18:59 06:59 18:59 Intake Total 178.558 282.935 0 Output Total 375 1150 Balance -196.442 282.935 -1150 Weight 94.4 kg 96.2 kg Intake: Intake, IV Titration 178.558 282.935 Amount Heparin Sodium,Porcine/ 178.558 282.935 D5w Pmx 25,000 unit In Dextrose/Water 1 500ml. bag @ 18 UNITS/KG/HR 33. 31 mls/hr IV .Q15H1M [facility] Rx#:[id number] Oral 0 Output: Urine 375 1150 Other: # Voids 1 1 # Bowel Movements 1 - Exam Gen.: Patient is alert and oriented 3, no acute distress cardiovascular: Regular rate and rhythm, S1/S2 Lungs: Clear to auscultation bilaterally no wheezes rales or rhonch Abdomen: Soft nontender nondistended positive bowel sounds PEG tube in place Extremities: No edema - Labs CBC & Chem 7: 07/11/16 05:35 07/10/16 05:51 Labs: Abnormal Lab Results - Last 24 Hours (Table) 07/10/16 07/10/16 07/11/16 Range/Units 16:45 20:41 05:35 RBC 3.77 L (4.30-5.90) m/uL Hgb 11.8 L (13.0-17.5) gm/dL Hct 36.6 L (39.0-53.0) % APTT (22.0-30.0) sec POC Glucose (mg/dL) 119 H 145 H (75-99) mg/dL 07/11/16 07/11/16 07/11/16 Range/Units 05:35 06:23 11:56 RBC (4.30-5.90) m/uL Hgb (13.0-17.5) gm/dL Hct (39.0-53.0) % APTT 39.8 H (22.0-30.0) sec POC Glucose (mg/dL) 138 H 126 H (75-99) mg/dL 07/11/16 Range/Units 12:15 RBC (4.30-5.90) m/uL Hgb (13.0-17.5) gm/dL Hct (39.0-53.0) % APTT 31.5 H (22.0-30.0) sec POC Glucose (mg/dL) (75-99) mg/dL Assessment and Plan Plan: Right lower lobe subsegmental pulmonary embolism History of left lower extremity DVT Tracheobronchitis Recent ischemic CVA, left brainstem Syncope, likely secondary to hypotension Dysphasia with PEG tube Mild anemia Mild hyperglycemia Left eye [id number] O2 to maintain saturation greater than or equal to 88% Heparin drip Would send patient home on novel anticoagulant, will have case management check with insurance for coverage Cardiology recommendations Lower extremities Doppler negative for DVT Given patient's history of DVT, patient should be on lifelong anticoagulation Blood pressure and blood sugar control Will start Azithromycin, Tessalon, and erythromycin opth.
[2016-07-11] MEDS: ERYTHROMYCIN 5 MG/GM OPHTH OINT 3.5 GM TUBE LEFT EYE SCH ×3 (15:12→23:46)
[2016-07-11] MEDS: AZITHROMYCIN 500 MG TAB PO SCH (15:12)
[2016-07-11] MEDS: RIVAROXABAN 15 MG TAB PO SCH (15:12)
[2016-07-11] MEDS: ALPRAZolam 0.25 MG TAB PO PRN ×2 (15:13→22:01)
--- NOTE | 2016-07-11 15:43 | P.PN ---
Subjective Principal diagnosis: PE This is a 51-year-old gentleman admitted to the hospital with a syncopal episode. He ruled in for pulmonary embolism. Heparin was discontinued today and patient was started on Xarelto for PE protocol. Overall he states that his breathing is improving. Objective - Vital Signs Vital signs: Vital Signs Temp 97.1 F L 07/11/16 12:00 Pulse 91 07/11/16 12:00 Resp 18 07/11/16 12:00 BP 115/61 07/11/16 12:00 Pulse Ox 91 L 07/11/16 12:00 Intake & Output 07/10/16 07/11/16 07/11/16 18:59 06:59 18:59 Intake Total 178.558 282.935 0 Output Total 375 1150 Balance -196.442 282.935 -1150 Weight 94.4 kg 96.2 kg Intake: Intake, IV Titration 178.558 282.935 Amount Heparin Sodium,Porcine/ 178.558 282.935 D5w Pmx 25,000 unit In Dextrose/Water 1 500ml. bag @ 18 UNITS/KG/HR 33. 31 mls/hr IV .Q15H1M [facility] Rx#:[id number] Oral 0 Output: Urine 375 1150 Other: # Voids 1 1 # Bowel Movements 1 - Exam PHYSICAL EXAMINATION: HEENT: Head is atraumatic, normocephalic. Pupils equal, round. Neck is supple. There is no elevated jugular venous pressure. HEART EXAMINATION: Heart S1 and S2 with systolic murmur is heard. CHEST EXAMINATION: Lungs are clear to auscultation and precussion. No chest wall tenderness is noted on palpation or with deep breathing. ABDOMEN: Soft, nontender. Bowel sounds are heard. No organomegaly noted. PEG tube in place. EXTREMITIES: 2+ peripheral pulses with no evidence of peripheral edema and no calf tenderness noted. NEUROLOGIC patient is awake, alert and oriented -3. . - Labs CBC & Chem 7: 07/11/16 05:35 07/10/16 05:51 Labs: Abnormal Lab Results - Last 24 Hours (Table) 07/10/16 07/10/16 07/11/16 Range/Units 16:45 20:41 05:35 RBC 3.77 L (4.30-5.90) m/uL Hgb 11.8 L (13.0-17.5) gm/dL Hct 36.6 L (39.0-53.0) % APTT (22.0-30.0) sec POC Glucose (mg/dL) 119 H 145 H (75-99) mg/dL 07/11/16 07/11/16 07/11/16 Range/Units 05:35 06:23 11:56 RBC (4.30-5.90) m/uL Hgb (13.0-17.5) gm/dL Hct (39.0-53.0) % APTT 39.8 H (22.0-30.0) sec POC Glucose (mg/dL) 138 H 126 H (75-99) mg/dL 07/11/16 Range/Units 12:15 RBC (4.30-5.90) m/uL Hgb (13.0-17.5) gm/dL Hct (39.0-53.0) % APTT 31.5 H (22.0-30.0) sec POC Glucose (mg/dL) (75-99) mg/dL Assessment and Plan (1) Syncope Status: Acute (2) Pulmonary embolism Status: Acute (3) History of CVA (cerebrovascular accident) Status: Acute (4) Diabetes Status: Acute (5) Hyperlipemia Status: Acute Plan: From cardiology's perspective, we'll discontinue the IV heparin and start the patient on xarelto 15 mg one tablet by mouth twice a day for 21 days, then 20 mg daily. We will also check to see to make sure the patient has coverage for this new anticoagulant. DNP note has been reviewed, I agree with a documented findings and plan of care. Patient was seen and examined.
[2016-07-11] MEDS ORDERED: BENZONATATE 100 MG CAP PO SCH (16:00)
[2016-07-11 16:57] LABS: Glucose,Whole Blood 130 mg/dL (75-99)
[2016-07-11 21:50] LABS: Glucose,Whole Blood 161 mg/dL (75-99)
[2016-07-11] MEDS: INSULIN GLARGINE 100 UNIT/ML 10 ML VIAL SQ SCH (22:00)
[2016-07-11] MEDS: ATORVASTATIN 80 MG TAB PEG/G-TUBE SCH (22:01)
[2016-07-11] MEDS: ZOLPIDEM 5 MG TAB PO PRN (22:01)
[2016-07-12] MEDS: SODIUM CHLORIDE 0.9% 1,000 ML IV SCH (00:03)
[2016-07-12] MEDS: ERYTHROMYCIN 5 MG/GM OPHTH OINT 3.5 GM TUBE LEFT EYE SCH ×3 (06:18→18:13)
[2016-07-12 07:15] LABS: Glucose,Whole Blood 188 mg/dL (75-99)
[2016-07-12 08:08] LABS: Basophils % (A) 0 %; CH 32.2; CHCM 33.7; Eosinophils # (A) 0.1 k/uL (0-0.7); Eosinophils % (A) 1 %; HCT 37.4 % (39.0-53.0); HDW 3.13; HGB 12.3 gm/dL (13.0-17.5); Luc # (Auto) 0.14; Luc % (Auto) 1; Lymphocytes # (A) 0.8 k/uL (1.0-4.8); Lymphocytes % (A) 7 %; MCH 31.6 pg (25.0-35.0); Mean Platelet Volume 7.2; Monocytes # (A) 0.6 k/uL (0-1.0); Monocytes % (A) 5 %; Neutrophils % (A) 85 %; RDW 13.7 % (11.5-15.5); WBC 11.7 k/uL (3.8-10.6); WBC (Perox) 11.82
[2016-07-12] MEDS: IPRATROPIUM-ALBUTEROL 3 ML NEB INHALATION SCH ×4 (08:10→18:51)
[2016-07-12 08:37] LABS: ALT 37 U/L (21-72); AST 16 U/L (17-59); Alkaline Phosphatase 89 U/L (38-126); Anion Gap 13 mmol/L; Blood Urea Nitrogen 11 mg/dL (9-20); Calcium 8.9 mg/dL (8.4-10.2); Carbon Dioxide 29 mmol/L (22-30); Chloride 98 mmol/L (98-107); Glucose 204 mg/dL (74-99); Non-African American GFR(MDRD) >60 (>60 ml/min/1.73 sqM); Potassium 4.4 mmol/L (3.5-5.1); Sodium 140 mmol/L (137-145); Total Bilirubin 0.5 mg/dL (0.2-1.3); Total Protein 6.5 g/dL (6.3-8.2)
[2016-07-12] MEDS: AZITHROMYCIN 500 MG TAB PO SCH (09:46)
[2016-07-12] MEDS: RIVAROXABAN 15 MG TAB PO SCH ×2 (09:46→18:13)
[2016-07-12] MEDS: LISINOPRIL 20 MG TAB PO SCH (09:46)
[2016-07-12] MEDS: ASPIRIN 81 MG CHEW PO SCH (09:46)
[2016-07-12] MEDS: INSULIN LISPRO (humaLOG) 300 UNIT/3 ML VIAL SQ SCH ×4 (09:47→21:26)
[2016-07-12] MEDS: LISINOPRIL 20 MG TAB PEG/G-TUBE SCH (11:07)
[2016-07-12 11:43] LABS: Glucose,Whole Blood 161 mg/dL (75-99)
--- NOTE | 2016-07-12 13:39 | P.PN ---
Subjective A 51-year-old male being seen this morning on rounds currently is sitting up in bed patient is using an oral Yonker to suction oral airway copious amount of oral secretions noted. Secretions are clear. Did note the tube feeds are at 120cc/hr. Patient states is coughing less this morning. Currently on room air sats are 92%. Patient has been afebrile temp this morning 99 with a white count of 11.7 this morning. Patient is on Xarelto for PE protocol Objective - Vital Signs Vital signs: Vital Signs Temp 99 F 07/12/16 07:49 Pulse 82 07/12/16 08:20 Resp 16 07/12/16 08:10 BP 118/61 07/12/16 07:49 Pulse Ox 92 L 07/12/16 07:49 Intake & Output 07/11/16 07/12/16 07/12/16 18:59 06:59 18:59 Intake Total 0 1440 Output Total 1650 Balance -1650 1440 Weight 96.2 kg Intake: Oral 0 Tube Feeding 1440 Output: Urine 1650 Other: # Voids 1 # Bowel Movements 0 - Exam Physical exam A 51-year-old gentleman who is awake is alert and oriented 3. Patient just ambulated from the bathroom to the bed sitting up. Lungs essentially clear with adequate air movement on room air no conversational dyspnea noted Heart S1-S2 audible and regular denying chest pain Abdomen soft nontender PEG tube in place no redness at the site active bowel tones. States urinating no difficulty. No frequent stooling. No reports of nausea vomiting the tube feeds per PEG tube is at 120 in our Extremities no edema to the bilateral lower extremities - Labs CBC & Chem 7: 07/12/16 07:16 07/12/16 07:16 Labs: Abnormal Lab Results - Last 24 Hours (Table) 07/11/16 07/11/16 07/12/16 Range/Units 16:51 21:29 07:06 WBC (3.8-10.6) k/uL RBC (4.30-5.90) m/uL Hgb (13.0-17.5) gm/dL Hct (39.0-53.0) % Neutrophils # (1.3-7.7) k/uL Lymphocytes # (1.0-4.8) k/uL Creatinine (0.66-1.25) mg/dL Glucose (74-99) mg/dL POC Glucose (mg/dL) 130 H 161 H 188 H (75-99) mg/dL AST (17-59) U/L Albumin (3.5-5.0) g/dL 07/12/16 07/12/16 07/12/16 Range/Units 07:16 07:16 11:40 WBC 11.7 H (3.8-10.6) k/uL RBC 3.90 L (4.30-5.90) m/uL Hgb 12.3 L (13.0-17.5) gm/dL Hct 37.4 L (39.0-53.0) % Neutrophils # 10.0 H (1.3-7.7) k/uL Lymphocytes # 0.8 L (1.0-4.8) k/uL Creatinine 0.48 L (0.66-1.25) mg/dL Glucose 204 H (74-99) mg/dL POC Glucose (mg/dL) 161 H (75-99) mg/dL AST 16 L (17-59) U/L Albumin 3.3 L (3.5-5.0) g/dL Assessment and Plan Plan: Impression Present on admission acute syncopal episode with elevated d-dimer suspect due to a right lower lobe pulmonary emboli Type 2 diabetes insulin requiring hemoglobin A1c 9.2 07/09/2016 Hypertension Present on admission syncopal episode suspect due to orthostatic hypotension A recent CVA 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 Echocardiogram left ventricular systolic function normal EF between 55 and 60% no evidence of pulmonary hypertension on an echocardiogram done 06/12/2016 Physical debilitated due to an acute left brain stem stroke Plan PT OT eval continue Scopolamine patch for the increased secretions Continue Xarelto 15 mg twice a day for PE Decrease lisinopril to 20 mg daily monitor response with parameters to hold if systolic blood pressure less than 120 Stop the oral suctioning encourage patient to cough up secretions DVT and GI prophylaxis We'll check a PA lateral chest x-ray in the morning Further recommendations pending will follow The above dictated assessment and findings were discussed with dr perez. Impression and the plan of care have been dictated as directed. Perla Lua nurse practitioner acting as a scribe for dr perez
[2016-07-12 17:12] LABS: Glucose,Whole Blood 129 mg/dL (75-99)
--- NOTE | 2016-07-12 18:06 | PN ---
DATE OF SERVICE: 07/12/2016 The patient is 51-year-old male who has history of cerebrovascular accident and does have a PEG tube and has difficulty handle his secretions. Is seen today sitting up in bed, is awake and alert. When he speaks his voice is very rattly, sounds like he has excess secretions in the back of his throat that he is currently having difficulties handling. The patient may need frequent suctioning to prevent aspiration of the secretions. The patient is running a low-grade temp of 99.0, otherwise is hemodynamically stable, in no acute distress. On physical exam, vital signs, temp is 99, heart rate is 104, respiratory rate 16, blood pressure is 118/61, O2 saturation 92% on room air. HEENT: Head is normocephalic, atraumatic. NECK: Supple. Trachea is midline. LUNGS: With coarse scattered rhonchi. Decreased on the right more than left. HEART: S1 and S2 are heard. Slightly tachycardic. ABDOMEN: Soft. Bowel sounds are heard. EXTREMITIES: With no edema. NEUROLOGIC: The patient is awake and alert. Does have a history of stroke, is unable to swallow, has a PEG tube and again, is having difficulty handling secretions. LABS: White count 11.7, hemoglobin is 12.3, hematocrit 37.4, with 171,000 platelets. Sodium is 140, potassium is 4.4, chloride 98, CO2 is 29. Anion gap is 13, BUN is 11, creatinine 0.48, glucose is 204. Calcium is 8.9, total bilirubin 0.5, AST is 16, ALT is 37, alkaline phosphatase is 89, total protein 6.5 albumin is 3.3. No new imaging to review. IMPRESSION: 1. Right lower lobe subsegmental pulmonary embolism. 2. History of left lower extremity deep venous thrombosis. 3. Tracheobronchitis. 4. Recent ischemic cerebrovascular accident left brain stem. 5. Syncope, likely secondary to hypotension. 6. Dysphagia with PEG tube. 7. Mild anemia. 8. Mild hyperglycemia. 9. Left eye conjunctivitis. PLAN: Did discuss possible Younkers for oral suctioning; however, the nurse practitioner who is following for primary states that patient did have a Younkers and that has been removed from the room and that patient is able to cough up the excess secretions and use his muscles and that he has been encouraged to do so and did return demonstrate that he was able to bring up these secretions successfully and breathing improved. Continue the heparin drip while they are determining oral anticoagulant that could be put into the PEG tube. Continue cardiology recommendations Continue current medications which have been reviewed. Continue to increase activity as tolerated. Will follow the patient closely with you, making further changes as necessary.
[2016-07-12 20:58] LABS: Glucose,Whole Blood 146 mg/dL (75-99)
[2016-07-12] MEDS: ALPRAZolam 0.25 MG TAB PO PRN (21:25)
[2016-07-12] MEDS: INSULIN GLARGINE 100 UNIT/ML 10 ML VIAL SQ SCH (21:25)
[2016-07-12] MEDS: ZOLPIDEM 5 MG TAB PO PRN (21:25)
[2016-07-12] MEDS: ATORVASTATIN 80 MG TAB PEG/G-TUBE SCH (21:25)
[2016-07-13] MEDS: ERYTHROMYCIN 5 MG/GM OPHTH OINT 3.5 GM TUBE LEFT EYE SCH ×3 (00:56→12:03)
[2016-07-13] MEDS: SODIUM CHLORIDE 0.9% 1,000 ML IV SCH (05:58)
--- NOTE | 2016-07-13 07:14 | XR ---
EXAMINATION TYPE: XR chest 2V DATE OF EXAM: 07/13/2016 6:55 AM COMPARISON: 07/09/2016 HISTORY: Shortness of breath TECHNIQUE: Frontal and lateral views of the chest are obtained. FINDINGS: Scattered senescent parenchymal changes noted. Hyperinflation compatible with COPD. No evidence for infiltrate. No evidence for atelectasis. Heart size is stable. Mediastinal structures are stable and grossly unremarkable. No evidence for hilar prominence. Degenerative changes dorsal spine. IMPRESSION: 1. No evidence for acute pulmonary disease.
[2016-07-13] MEDS: IPRATROPIUM-ALBUTEROL 3 ML NEB INHALATION SCH ×2 (07:41→11:53)
[2016-07-13 07:54] LABS: Basophils % (A) 1 %; CH 32.2; CHCM 33.1; Eosinophils # (A) 0.1 k/uL (0-0.7); Eosinophils % (A) 2 %; HCT 39.5 % (39.0-53.0); HDW 3.15; HGB 12.7 gm/dL (13.0-17.5); Luc # (Auto) 0.15; Luc % (Auto) 2; Lymphocytes # (A) 1.2 k/uL (1.0-4.8); Lymphocytes % (A) 14 %; MCH 31.5 pg (25.0-35.0); MCHC 32.1 g/dL (31.0-37.0); MCV 98.1 fL (80.0-100.0); Mean Platelet Volume 7.9; Monocytes # (A) 0.6 k/uL (0-1.0); Monocytes % (A) 7 %; Neutrophils # (A) 6.5 k/uL (1.3-7.7); Neutrophils % (A) 76 %; RBC 4.02 m/uL (4.30-5.90); RDW 13.7 % (11.5-15.5); WBC 8.5 k/uL (3.8-10.6); WBC (Perox) 8.73
[2016-07-13 08:11] LABS: Glucose,Whole Blood 127 mg/dL (75-99)
[2016-07-13 08:14] LABS: ALT 42 U/L (21-72); AST 21 U/L (17-59); Alkaline Phosphatase 80 U/L (38-126); Anion Gap 12 mmol/L; Blood Urea Nitrogen 9 mg/dL (9-20); Calcium 8.9 mg/dL (8.4-10.2); Carbon Dioxide 30 mmol/L (22-30); Chloride 98 mmol/L (98-107); Glucose 134 mg/dL (74-99); Non-African American GFR(MDRD) >60 (>60 ml/min/1.73 sqM); Potassium 4.4 mmol/L (3.5-5.1); Sodium 140 mmol/L (137-145); Total Bilirubin 0.6 mg/dL (0.2-1.3); Total Protein 6.6 g/dL (6.3-8.2)
[2016-07-13 08:21] VITALS: BP 109/70; RESP 16; TEMP 97.4
[2016-07-13] MEDS: LISINOPRIL 20 MG TAB PO SCH (08:23)
[2016-07-13] MEDS: ASPIRIN 81 MG CHEW PO SCH (08:23)
[2016-07-13] MEDS: RIVAROXABAN 15 MG TAB PO SCH (08:23)
[2016-07-13] MEDS: AZITHROMYCIN 500 MG TAB PO SCH (08:23)
[2016-07-13] MEDS: INSULIN LISPRO (humaLOG) 300 UNIT/3 ML VIAL SQ SCH ×2 (08:27→12:01)
[2016-07-13 11:56] VITALS: PULSE 88
[2016-07-13 11:56] LABS: Glucose,Whole Blood 132 mg/dL (75-99)
--- NOTE | 2016-07-13 13:30 | P.DS ---
Providers Date of admission: 07/09/16 20:43 Expected date of discharge: 07/13/16 Attending physician: Tyron Perez Consults: 07/10/16 08:33 Consult Physician Routine Consulting Provider: Shira Colon Consult Reason/Comments: pulmonary embolism Do you want consulting provider notified?: Yes [facility] Course: Hospital course This is a 51-year-old gentleman who presented on the day of admission to the emergency room after patient stated that he was at home when he felt dizzy lightheaded and passed out. Patient was recently discharged from [facility] rehab a few days prior to the incident. Patient was recuperating at the facility after an ischemic CVA which resulted in dysphagia requiring a PEG tube for nutritional support patient stated he had been doing relatively well. Patient stated he was not experiencing any shortness of breath or chest pain. Patient additionally stated that he was tolerating the tube feeds and was doing bolus feeds at home. Computed tomography scan of the chest on admission showed a right lower lobe sub-segmental pulmonary emboli. Patient currently is being followed by pulmonology and cardiology service. Patient will need to be initiated on oral anticoagulation. Dopplers to the bilateral lower extremities were negative for evidence of a DVT. Patient is a type II diabetic . Patient has been maintained on Lantus 25 units at bedtime. patient is on IV heparin until oral anticoagulation can be initiated. Cardiology consultation obtained. They recommended the patient be started on Xarelto for treatment of the pulmonary emboli. Patient does have a history of a prior DVT he states that occurred in the 1980s at that time was on Coumadin. Has not been on any recent blood thinners at home. Patient does take an aspirin daily.patient was restarted on his tube feeds per PEG tube. Additionally patient's chest x-ray on the day of discharge on July 13 showed no evidence of acute pulmonary disease. Patient was felt to be hemodynamically stable and appropriate to proceed with a discharge to home. Patient understood the importance of maintaining Xarelto therapy as ordered for treatment of the pulmonary emboli noted on patient's home meds the patient was taking lisinopril 40 mg daily. Did note the patient's systolic blood pressure while on lisinopril 40 mg daily was 90s to 100s. This was decreased to 20 mg lisinopril daily blood pressure 120s systolic. 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 Impression and the plan of care have been dictated as directed. Perla Lua nurse practitioner acting as a scribe for dr perez Patient Condition at Discharge: Fair Plan - Discharge Summary New Discharge Prescriptions: Azithromycin [Zithromax] 500 mg PO DAILY #7 tab Erythromycin Ophth Oint [Romycin Ophth Oint] 1 applic LEFT EYE Q6HR #1 applic Lisinopril [Zestril] 20 mg PO DAILY #30 tab Rivaroxaban [Xarelto Starter Pack] 1 each PO DIRECTED #1 tab Discharge Medication List Gabapentin [Neurontin] 300 mg PEG/G-TUBE TID PRN 08/13/15 [History] Insulin Aspart [NovoLOG] See Protocol SQ AC-TID 08/13/15 [History] Ipratropium-Albuterol Nebulize [Duoneb 0.5 mg-3 mg/3 ml Soln] 3 ml INHALATION RT -QID ampul.neb 06/22/16 [Rx] Aspirin 325 mg PEG/G-TUBE HS 07/09/16 [History] Atorvastatin [Lipitor] 80 mg PEG/G-TUBE HS 07/09/16 [History] Cyclobenzaprine [Flexeril] 10 mg PEG/G-TUBE TID PRN 07/09/16 [History] Insulin Glargine [Lantus] 25 unit SQ HS 07/09/16 [History] ALPRAZolam [Xanax] 0.25 mg PO BID PRN #0 tab 07/13/16 [Rx] Aspirin 81 mg PO DAILY chew 07/13/16 [Rx] Azithromycin [Zithromax] 500 mg PO DAILY #7 tab 07/13/16 [Rx] Erythromycin Ophth Oint [Romycin Ophth Oint] 1 applic LEFT EYE Q6HR #1 applic [Rx] Lisinopril [Zestril] 20 mg PO DAILY #30 tab 07/13/16 [Rx] Mag Hydrox/Al Hydrox/Simeth [Maalox] 15 ml PEG/G-TUBE Q6HR PRN #0 cup 07/13/16 [ Rx] Rivaroxaban [Xarelto Starter Pack] 1 each PO DIRECTED #1 tab 07/13/16 [Rx] Rivaroxaban [Xarelto] 15 mg PO BID-W/MEALS tab 07/13/16 [Rx] Follow up Appointment(s)/Referral(s): Tyron Perez MD [Primary Care Provider] - 1-2 days [facility], [NON-STAFF] - 1 Week Activity/Diet/Wound Care/Special Instructions: resume [facility] Discharge Disposition: HOME WITH HOME HEALTH SERVICES
--- NOTE | 2016-07-13 14:07 | P.PN ---
Subjective Principal diagnosis: Syncope Patient seen and examined. Patient states he is feeling much better. He still has a productive cough. He is hoping to go home today. The patient's blood pressures been stable. Blood pressure medications have been adjusted per the primary team. The patient will be sent home on Xarelto. Objective - Vital Signs Vital signs: Vital Signs Temp 97.4 F L 07/13/16 07:00 Pulse 88 07/13/16 12:03 Resp 16 07/13/16 07:00 BP 109/70 07/13/16 07:00 Pulse Ox 93 L 07/13/16 07:00 Intake & Output 07/12/16 07/13/16 07/13/16 18:59 06:59 18:59 Intake Total 160 320 Output Total 210 Balance 160 -210 320 Weight 87.997 kg 86.636 kg Intake: Tube Feeding 160 320 Output: Other 210 Other: # Voids 3 0 2 - Exam Gen.: Patient is alert and oriented 3, no acute distress cardiovascular: Regular rate and rhythm, S1/S2 Lungs: Clear to auscultation bilaterally no wheezes rales or rhonch Abdomen: Soft nontender nondistended positive bowel sounds PEG tube in place Extremities: No edema - Labs CBC & Chem 7: 07/13/16 07:11 07/13/16 07:11 Labs: Abnormal Lab Results - Last 24 Hours (Table) 07/12/16 07/12/16 07/13/16 Range/Units 17:09 20:57 07:11 RBC 4.02 L (4.30-5.90) m/uL Hgb 12.7 L (13.0-17.5) gm/dL Creatinine (0.66-1.25) mg/dL Glucose (74-99) mg/dL POC Glucose (mg/dL) 129 H 146 H (75-99) mg/dL Albumin (3.5-5.0) g/dL 07/13/16 07/13/16 07/13/16 Range/Units 07:11 08:03 11:53 RBC (4.30-5.90) m/uL Hgb (13.0-17.5) gm/dL Creatinine 0.50 L (0.66-1.25) mg/dL Glucose 134 H (74-99) mg/dL POC Glucose (mg/dL) 127 H 132 H (75-99) mg/dL Albumin 3.3 L (3.5-5.0) g/dL Assessment and Plan Plan: Right lower lobe subsegmental pulmonary embolism History of left lower extremity DVT Tracheobronchitis Recent ischemic CVA, left brainstem Syncope, likely secondary to hypotension Dysphasia with PEG tube Mild anemia Mild hyperglycemia Left eye [id number] O2 to maintain saturation greater than or equal to 88% Cardiology recommendations Lower extremities Doppler negative for DVT Given patient's history of DVT, patient should be on lifelong anticoagulation Blood pressure and blood sugar control Will start Azithromycin, Tessalon, and erythromycin opth. Home with Xarelo Follow up in office in 1-2 weeks.
== END 2016-07-13 15:30 | disposition home health service (06) | DRG 176 ==
LOC: EC 16:52 → 6SEL 20:43 → 5MS5E 07-11 17:14
PROVIDERS: ADMIT Family Medicine; ATTEND Family Medicine
DX: I26.99 Other pulmonary embolism without acute cor pulmonale (principal); E11.65 Type 2 diabetes mellitus with hyperglycemia; I11.9 Hypertensive heart disease without heart failure; D64.9 Anemia, unspecified; E78.5 Hyperlipidemia, unspecified; F41.9 Anxiety disorder, unspecified; H10.9 Unspecified conjunctivitis; I49.3 Ventricular premature depolarization; I51.7 Cardiomegaly; I69.391 Dysphagia following cerebral infarction; R13.10 Dysphagia, unspecified; J40 Bronchitis, not specified as acute or chronic; K21.9 Gastro-esophageal reflux disease without esophagitis; K58.9 Irritable bowel syndrome, unspecified; I69.320 Aphasia following cerebral infarction; Z79.4 Long term (current) use of insulin; Z79.82 Long term (current) use of aspirin; Z93.1 Gastrostomy status
CPT/HCPCS: 36415; 71020; 71275; 80048; 80053; 82272; 82550; 82553; 83036; 83735; 84484; 85025; 85379; 85610; 85730; 93005; 93965; 93970; 94640; 94760; 96361; 96365; 96366; 96376; 99285

== ENCOUNTER 2016-10-12 07:18 | Emergency (ER) | payer OTHER ==
[2016-10-12 07:27] VITALS: BP 143/81; PULSE 109; RESP 20; TEMP 98
--- NOTE | 2016-10-12 08:07 | ED ---
Recheck HPI - General Chief Complaint: Recheck/Abnormal Lab/Rx Stated Complaint: PEG TUBE CAME OUT Time Seen by Provider: 10/12/16 07:38 Source: patient Mode of arrival: ambulatory Limitations: no limitations - History of Present Illness Initial Comments: Abdomen the bed this morning about down on a half ago he accidentally pulled out his feeding tube, he had CVA he was unable to swallow and since then he has a feeding tube in place he is scheduled for a swallow study for the further evaluation. Denies any headaches no neck pain no chest pain or shortness of breath no abdominal pain no frequency urgency dysuria - Related Data Home Medications Medication Instructions Recorded Confirmed Gabapentin [Neurontin] 300 mg PEG/G-TUBE TID PRN 08/13/15 07/09/16 Insulin Aspart [NovoLOG] See Protocol SQ AC-TID 08/13/15 07/09/16 Aspirin 325 mg PEG/G-TUBE HS 07/09/16 07/09/16 Atorvastatin [Lipitor] 80 mg PEG/G-TUBE HS 07/09/16 07/09/16 Cyclobenzaprine [Flexeril] 10 mg PEG/G-TUBE TID PRN 07/09/16 07/09/16 Insulin Glargine [Lantus] 25 unit SQ HS 07/09/16 07/09/16 Previous Rx's Medication Instructions Recorded Ipratropium-Albuterol Nebulize 3 ml INHALATION RT-QID ampul.neb 06/22/16 [Duoneb 0.5 mg-3 mg/3 ml Soln] ALPRAZolam [Xanax] 0.25 mg PO BID PRN #0 tab 07/13/16 Aspirin 81 mg PO DAILY chew 07/13/16 Azithromycin [Zithromax] 500 mg PO DAILY #7 tab 07/13/16 Erythromycin Ophth Oint [Romycin 1 applic LEFT EYE Q6HR #1 applic 07/13/16 Ophth Oint] Lisinopril [Zestril] 20 mg PO DAILY #30 tab 07/13/16 Mag Hydrox/Al Hydrox/Simeth 15 ml PEG/G-TUBE Q6HR PRN #0 cup 07/13/16 [Maalox] Rivaroxaban [Xarelto Starter Pack] 1 each PO DIRECTED #1 tab 07/13/16 Rivaroxaban [Xarelto] 15 mg PO BID-W/MEALS tab 07/13/16 Allergies Allergy/AdvReac Type Severity Reaction Status Date / Time vancomycin Allergy Unknown Verified 10/12/16 07:27 venom-honey bee Allergy Anaphylaxis Verified 10/12/16 07:27 [bee venom (honey bee)] Review of Systems ROS Statement: Those systems with pertinent positive or pertinent negative responses have been documented in the HPI. ROS Other: All systems not noted in ROS Statement are negative. Past Medical History Past Medical History: CVA/TIA, Diabetes Mellitus, Deep Vein Thrombosis (DVT), GERD/Reflux, Hyperlipidemia, Hypertension, Musculoskeletal Disorder, Pulmonary Embolus (PE), Syncope Additional Past Medical History / Comment(s): RECENT ABD PAIN. LUMBAR STENOSIS. HX DVT LT CALF, THEN PE. HX IBS. COLON POLYPS, hypertensive cardio vascular disease with left ventricular hypertrophy. cataracts History of Any Multi-Drug Resistant Organisms: None Reported Past Surgical History: Appendectomy, Cholecystectomy Additional Past Surgical History / Comment(s): EXPLORATORY LAPAROTOMY, FUSION L4 -L5, colonoscopy Past Anesthesia/Blood Transfusion Reactions: No Reported Reaction Past Psychological History: Anxiety Additional Psychological History / Comment(s): Pt lives with friends. He rents a room. He is independent. Smoking Status: Never smoker Past Alcohol Use History: Rare Additional Past Alcohol Use History / Comment(s): Patient has been a lifelong nonsmoker. He drinks alcohol rarely. 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 Past Drug Use History: None Reported - Past Family History Mother Family Medical History: Cancer, Deep Vein Thrombosis (DVT) General Exam - General Exam Comments Initial Comments: General: The patient is awake and alert, in no distress, and does not appear acutely ill. Skin: Skin is warm and dry and no rashes or lesions are noted. Eye: Pupils are equal, round and reactive to light, extra-ocular movements are intact; there is normal conjunctiva bilaterally. Ears, nose, mouth and throat: There are moist mucous membranes and no oral lesions. Neck: The neck is supple, there is no tenderness or JVD. Cardiovascular: There is a regular rate and rhythm. No murmur, rub or gallop is appreciated. Respiratory: To auscultation bilateral, no wheezing no rhonchi no distress respiratory dao noticed Gastrointestinal: Soft, non-distended, noticed several fillings GM out of the table he does have a stoma pain and noticed mild oozing of serosanguineous fluid from there, otherwise abdominal exam is unremarkable Back: There is no tenderness to palpation in the midline. There is no obvious deformity. Musculoskeletal: Normal ROM, no tenderness, There is no pedal edema. There is no calf tenderness or swelling. No cords were appreciated. Neurological: CN II-XII intact, Cranial nerves III through XII are intact. There are no obvious motor or sensory deficits. Coordination appears grossly intact. Speech is normal. Psychiatric: Cooperative, appropriate mood & affect, normal judgment. Limitations: no limitations Course Vital Signs 10/12/16 07:25 Temperature 98.0 F Pulse Rate 109 H Respiratory 20 Rate Blood Pressure 143/81 O2 Sat by Pulse 98 Oximetry Procedures - Feeding Tube Replacement Reason for Replacement: fell out Initial Tube Inserted: greater than 2 weeks Type of Tube: gastrostomy Use of Tube: medications and feeding Insertion Site Prior to Procedure: erythematous Tube Used for Reinsertion: other Anesthesia Used: Lidocaine 1% Verification of Placement: auscultation Tube Secured by: tape/dressing, other (Same size tube was inserted at the previous site, patient tolerated to follow the procedure well there were no complications) Patient Tolerated Procedure: well Disposition Clinical Impression: Encounter for feeding tube placement Disposition: HOME SELF-CARE Condition: Good Instructions: How to Use and Care for Your PEG Tube (ED) Referrals: Tyron Cadena MD [Primary Care Provider] - 1-2 days
== END 2016-10-12 08:12 | disposition home or self-care (01) ==
LOC: EC 07:18
DX: Z43.1 Encounter for attention to gastrostomy (principal); E11.9 Type 2 diabetes mellitus without complications; E78.5 Hyperlipidemia, unspecified; Z86.711 Personal history of pulmonary embolism; Z86.718 Personal history of other venous thrombosis and embolism; Z86.73 Personal history of transient ischemic attack (TIA), and cerebral infarction without residual deficits; Z90.49 Acquired absence of other specified parts of digestive tract; Z79.4 Long term (current) use of insulin; Z79.899 Other long term (current) drug therapy; Z88.1 Allergy status to other antibiotic agents; Z91.030 Bee allergy status
CPT/HCPCS: 43760; 99282

== ENCOUNTER 2016-10-13 21:15 | Emergency (ER) | payer OTHER ==
[2016-10-13 21:40] VITALS: RESP 18
--- NOTE | 2016-10-13 22:32 | ED ---
Recheck HPI - General Chief Complaint: Recheck/Abnormal Lab/Rx Stated Complaint: Recheck/Peg Tube Time Seen by Provider: 10/13/16 22:16 Source: patient, RN notes reviewed Mode of arrival: ambulatory Limitations: no limitations - History of Present Illness Initial Comments: Patient is a 51-year-old male presents to the emergency room for evaluation of feeding tube placement. Patient states he had a feeding tube placed after having a stroke due to dysphagia. Patient states that a few days ago he rolled over and accidentally pulled out his feeding tube. Patient states he was replaced here in the emergency room. Patient states since it was placed he noticed that this feeding tube is different than the one he has had before. Patient states this feeding tube is shorter. Patient states he takes a longer time to do to feedings. Patient states he is here to make sure it is working okay. Patient states he is planning on calling his surgeon, Dr. Moeller on Sunday for follow-up. Patient denies chest pain, shortness of breath, nausea, vomiting , headache, dizziness, pain at the feeding tube site. - Related Data Home Medications Medication Instructions Recorded Confirmed Insulin Aspart [NovoLOG] See Protocol SQ AC-TID 08/13/15 10/13/16 Aspirin 325 mg PEG/G-TUBE DAILY 07/09/16 10/13/16 Atorvastatin [Lipitor] 80 mg PEG/G-TUBE HS 07/09/16 10/13/16 Cyclobenzaprine [Flexeril] 10 mg PEG/G-TUBE TID PRN 07/09/16 10/13/16 Insulin Glargine [Lantus] 25 unit SQ HS 07/09/16 10/13/16 ALPRAZolam [Xanax] 0.25 mg PEG/G-TUBE BID PRN 10/13/16 10/13/16 Cholecalciferol (Vitamin D3) 5 ml PEG/G-TUBE DAILY 10/13/16 10/13/16 [D--Zoë] Gabapentin 600 mg PEG/G-TUBE TID PRN 10/13/16 10/13/16 Ipratropium-Albuterol Nebulize 3 ml INHALATION RT-QID PRN 10/13/16 10/13/16 [Duoneb 0.5 mg-3 mg/3 ml Soln] Magnesium Oxide [Mag-Ox] 400 mg PEG/G-TUBE DAILY 10/13/16 10/13/16 Metoprolol Tartrate [Lopressor] 25 mg PEG/G-TUBE BID 10/13/16 10/13/16 Omeprazole [PriLOSEC] 20 mg PEG/G-TUBE DAILY 10/13/16 10/13/16 Rivaroxaban [Xarelto] 15 mg PEG/G-TUBE BID-W/MEALS 10/13/16 10/13/16 Simvastatin [Zocor] 40 mg PEG/G-TUBE HS 10/13/16 10/13/16 Zolpidem Tartrate [Ambien] 5 mg PEG/G-TUBE HS PRN 10/13/16 10/13/16 Allergies Allergy/AdvReac Type Severity Reaction Status Date / Time vancomycin Allergy Unknown Verified 10/13/16 22:31 venom-honey bee Allergy Anaphylaxis Verified 10/13/16 22:31 [bee venom (honey bee)] Review of Systems ROS Statement: Those systems with pertinent positive or pertinent negative responses have been documented in the HPI. ROS Other: All systems not noted in ROS Statement are negative. Past Medical History Past Medical History: CVA/TIA, Diabetes Mellitus, Deep Vein Thrombosis (DVT), GERD/Reflux, Hyperlipidemia, Hypertension, Musculoskeletal Disorder, Pulmonary Embolus (PE), Syncope Additional Past Medical History / Comment(s): LUMBAR STENOSIS. HX DVT LT CALF, THEN PE. HX IBS. COLON POLYPS, hypertensive cardio vascular disease with left ventricular hypertrophy. cataracts. apasic after CVA so uses PEG tube History of Any Multi-Drug Resistant Organisms: None Reported Past Surgical History: Appendectomy, Cholecystectomy Additional Past Surgical History / Comment(s): EXPLORATORY LAPAROTOMY, FUSION L4 -L5, colonoscopy, PEG tube Past Anesthesia/Blood Transfusion Reactions: No Reported Reaction Past Psychological History: Anxiety Additional Psychological History / Comment(s): Pt lives with friends. He rents a room. He is independent. Smoking Status: Never smoker Past Alcohol Use History: Rare Additional Past Alcohol Use History / Comment(s): Patient has been a lifelong nonsmoker. He drinks alcohol rarely. 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 Past Drug Use History: None Reported - Past Family History Mother Family Medical History: Cancer, Deep Vein Thrombosis (DVT) General Exam - General Exam Comments Initial Comments: Sitting in exam room, no acute distress. Limitations: no limitations General appearance: alert, in no apparent distress Head exam: Present: atraumatic, normocephalic, normal inspection Eye exam: Present: normal appearance ENT exam: Present: normal exam Neck exam: Present: normal inspection Respiratory exam: Present: normal lung sounds bilaterally. Absent: respiratory distress Cardiovascular Exam: Present: normal rhythm, tachycardia, normal heart sounds GI/Abdominal exam: Present: soft, other (Feeding tube in place). Absent: distended, tenderness, guarding, rebound, rigid Extremities exam: Present: normal inspection Back exam: Present: normal inspection Neurological exam: Present: alert, oriented X3, CN II-XII intact, normal gait Psychiatric exam: Present: normal affect, normal mood Skin exam: Present: warm, dry, intact, normal color. Absent: rash Course Vital Signs 10/13/16 10/14/16 21:36 00:01 Temperature 98.2 F 99.4 F Pulse Rate 110 H 120 H Respiratory 18 18 Rate Blood Pressure 142/87 147/95 O2 Sat by Pulse 97 93 L Oximetry Medical Decision Making - Medical Decision Making Patient is a 51-year-old male presents emergency room for reevaluation of feeding tube placement. KUB x-ray shows gastrotomy tube appears to be in good position. Results discussed with patient. Patient states he will follow-up with his surgeon on Sunday. Return parameters discussed. Case discussed with Dr. Justice. - Radiology Data Radiology results: report reviewed, image reviewed Disposition Clinical Impression: Encounter for feeding tube placement Disposition: HOME SELF-CARE Condition: Good Instructions: How to Use and Care for Your PEG Tube (ED) Additional Instructions: Please follow-up with surgeon. If any new symptom arises or symptoms worsen, return to ER as soon as possible. Referrals: Tyron Cadena MD [Primary Care Provider] - 1-2 days Time of Disposition: 23:00
--- NOTE | 2016-10-13 22:54 | XR ---
EXAMINATION TYPE: XR KUB DATE OF EXAM: 10/13/2016 10:42 PM COMPARISON: NONE HISTORY: Check tube placement. Abdominal pain TECHNIQUE: Single view FINDINGS: There is a gastrostomy tube. There is a small amount of contrast injected in the gastrostom y tube that appears to spill into the gastric fundus. There is no sign of leakage. IMPRESSION: Gastrostomy tube appears to be in good position.
[2016-10-14 00:03] VITALS: BP 147/95; PULSE 120; TEMP 99.4
== END 2016-10-14 00:02 | disposition home or self-care (01) ==
LOC: EC 21:15
DX: Z43.1 Encounter for attention to gastrostomy (principal); R00.0 Tachycardia, unspecified; E11.9 Type 2 diabetes mellitus without complications; E78.5 Hyperlipidemia, unspecified; K21.9 Gastro-esophageal reflux disease without esophagitis; I11.9 Hypertensive heart disease without heart failure; K58.9 Irritable bowel syndrome, unspecified; Z86.711 Personal history of pulmonary embolism; Z86.718 Personal history of other venous thrombosis and embolism; Z86.73 Personal history of transient ischemic attack (TIA), and cerebral infarction without residual deficits; Z90.49 Acquired absence of other specified parts of digestive tract; Z79.4 Long term (current) use of insulin; Z79.899 Other long term (current) drug therapy; Z88.1 Allergy status to other antibiotic agents; Z91.030 Bee allergy status
CPT/HCPCS: 99283 ×2; 74000; Q9967

== ENCOUNTER 2016-12-08 08:21 | Day surgery (SDC) | payer OTHER ==
[2016-12-07 09:30] VITALS: BMI 33.0
[~2016-12-08 08:21] MED LIST: LACTATED RINGERS 1,000 ML IV SCH
[2016-12-08 08:42] VITALS: TEMP 97
[2016-12-08 08:47] LABS: Glucose,Whole Blood 281 mg/dL (75-99)
[2016-12-08] MEDS ORDERED: PROPOFOL 10 MG/ML 20 ML VIAL IV ONE (08:51)
[2016-12-08] MEDS ORDERED: LIDOCAINE 1% INJ 10MG/ML (20 ML MDV) ONE (08:51)
--- NOTE | 2016-12-08 08:55 | P.GSHP ---
History of Present Illness H&P Date: 12/08/16 Chief Complaint: GERD Is a 51-year-old male from Dr. Tyron eB. Patient rents today for EGD. He' s had issues with GERD. - Constitutional Constitutional: Reports as per HPI Past Medical History Past Medical History: CVA/TIA, Diabetes Mellitus, Deep Vein Thrombosis (DVT), GERD/Reflux, Hyperlipidemia, Hypertension, Musculoskeletal Disorder, Pulmonary Embolus (PE), Syncope Additional Past Medical History / Comment(s): states "unable to pass barium swallow but able to swallow some foods and fluids." LUMBAR STENOSIS. HX DVT LT CALF, THEN PE. HX IBS. COLON POLYPS, hypertensive cardio vascular disease with left ventricular hypertrophy. cataracts. apasic after CVA so uses PEG tube- rt side of body temperature intolerance History of Any Multi-Drug Resistant Organisms: MRSA Date of last positivie culture/infection: MDRO Source:: sputum Past Surgical History: Appendectomy, Cholecystectomy Additional Past Surgical History / Comment(s): EXPLORATORY LAPAROTOMY, FUSION L4 -L5, colonoscopy, PEG tube Past Anesthesia/Blood Transfusion Reactions: No Reported Reaction Past Psychological History: Anxiety Additional Psychological History / Comment(s): Pt lives with friends. He rents a room. He is independent. Smoking Status: Never smoker Past Alcohol Use History: Rare Additional Past Alcohol Use History / Comment(s): Patient has been a lifelong nonsmoker. He drinks alcohol rarely. 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 Past Drug Use History: None Reported - Past Family History Father History Unknown: Yes Mother Family Medical History: Cancer, Deep Vein Thrombosis (DVT) Medications and Allergies Home Medications Medication Instructions Recorded Confirmed Type Insulin Aspart [NovoLOG] See Protocol SQ AC-TID PRN 08/13/15 12/08/16 History Aspirin 325 mg PEG/G-TUBE DAILY 07/09/16 12/08/16 History Cyclobenzaprine [Flexeril] 10 mg PEG/G-TUBE TID PRN 07/09/16 12/08/16 History Insulin Glargine [Lantus] 25 unit SQ HS 07/09/16 12/08/16 History ALPRAZolam [Xanax] 0.25 mg PEG/G-TUBE BID PRN 10/13/16 12/08/16 History Cholecalciferol (Vitamin D3) 5 ml PEG/G-TUBE DAILY 10/13/16 12/08/16 History [D--Zoë] Gabapentin 600 mg PEG/G-TUBE TID PRN 10/13/16 12/08/16 History Ipratropium-Albuterol Nebulize 3 ml INHALATION RT-QID PRN 10/13/16 12/08/16 History [Duoneb 0.5 mg-3 mg/3 ml Soln] Magnesium Oxide [Mag-Ox] 400 mg PEG/G-TUBE DAILY 10/13/16 12/08/16 History Metoprolol Tartrate [Lopressor] 25 mg PEG/G-TUBE BID 10/13/16 12/08/16 History Omeprazole [PriLOSEC] 20 mg PEG/G-TUBE DAILY 10/13/16 12/08/16 History Rivaroxaban [Xarelto] 15 mg PEG/G-TUBE BID-W/MEALS 10/13/16 12/08/16 History Simvastatin [Zocor] 40 mg PEG/G-TUBE HS 10/13/16 12/08/16 History Amitriptyline HCl [Elavil] 25 mg PEG/G-TUBE BID 12/07/16 12/08/16 History Ranitidine HCl 150 mg PEG/G-TUBE BID 12/07/16 12/08/16 History Allergies Allergy/AdvReac Type Severity Reaction Status Date / Time vancomycin Allergy kidneys Verified 12/08/16 08:35 shutdown venom-honey bee Allergy Anaphylaxis Verified 12/08/16 08:35 [bee venom (honey bee)] Surgical - Exam Vital Signs Temp Pulse Resp BP Pulse Ox 97.0 F L 73 16 144/76 98 12/08/16 08:40 12/08/16 08:40 12/08/16 08:40 12/08/16 08:40 12/08/16 08:40 - General well developed, no distress - Eyes PERRL - ENT normal pinna - Neck no masses - Respiratory normal expansion - Cardiovascular Rhythm: regular - Abdomen Abdomen: soft, non tender Results - Labs Abnormal Lab Results - Last 24 Hours (Table) 12/08/16 Range/Units 08:44 POC Glucose (mg/dL) 281 H (75-99) mg/dL Assessment and Plan Plan: GERD. We'll perform EGD.
--- NOTE | 2016-12-08 09:02 | P.OP ---
Date of Procedure: 12/08/16 Preoperative Diagnosis: GERD Postoperative Diagnosis: Mild antral gastritis Small hilar hernia Minimal esophagitis Procedure(s) Performed: EGD Implants: Anesthesia: MAC Surgeon: Shelton Lynn Pathology: other (Antrum, esophagus) Condition: stable Disposition: PACU Indications for Procedure: Operative Findings: Description of Procedure: A shunt placed on the endoscopy table in the lateral position. He received IV sedation. The gastroscope placed oropharynx passed in the esophagus and stomach. Scope then placed through the pylorus. First and second portion of the duodenum appeared normal. Scope was brought back the antrum and this appeared mildly inflamed. A biopsies performed. Scope was then retroflexed and the remainder of the stomach appeared normal. The GE junction at 40 cm. There was a small hiatal hernia. The distal esophagus was inflamed and a biopsy was performed. The proximal esophagus was normal. The scope was withdrawn for patient.
[2016-12-08 09:22] LABS: Glucose,Whole Blood 250 mg/dL (75-99)
[2016-12-08 09:32] VITALS: BP 111/74; PULSE 97; RESP 16
== END 2016-12-08 09:46 | disposition home or self-care (01) ==
LOC: ORWHC2ENDO 08:21
PROVIDERS: ATTEND Surgery
DX: K21.0 Gastro-esophageal reflux disease with esophagitis (principal); K29.50 Unspecified chronic gastritis without bleeding; I10 Essential (primary) hypertension; E78.5 Hyperlipidemia, unspecified; E11.9 Type 2 diabetes mellitus without complications; K44.9 Diaphragmatic hernia without obstruction or gangrene; Z86.14 Personal history of Methicillin resistant Staphylococcus aureus infection; Z86.73 Personal history of transient ischemic attack (TIA), and cerebral infarction without residual deficits; Z86.718 Personal history of other venous thrombosis and embolism; Z86.711 Personal history of pulmonary embolism; Z93.1 Gastrostomy status; Z88.1 Allergy status to other antibiotic agents; Z79.01 Long term (current) use of anticoagulants; Z79.82 Long term (current) use of aspirin; Z79.4 Long term (current) use of insulin; Z79.899 Other long term (current) drug therapy
CPT/HCPCS: 88305; 88342; 43239; J2001; J2704

== ENCOUNTER → 2016-12-19 | Outpatient (CLI) | payer OTHER ==
[2016-12-19 16:22] LABS: Blood Urea Nitrogen 16 mg/dL (9-20); Non-African American GFR(MDRD) >60 (>60 ml/min/1.73 sqM)
--- NOTE | 2016-12-19 18:45 | CT ---
EXAMINATION TYPE: CT angio chest DATE OF EXAM: 12/19/2016 4:48 PM COMPARISON: NONE HISTORY: Follow-up for pulmonary embolism. CT DLP: 443.50 mGycm Automated exposure control for dose reduction was used. CONTRAST: CTA scan of the thorax is performed with IV Contrast, patient injected with 69 mL of Omnipaque 350, p ulmonary embolism protocol. FINDINGS: LUNGS: The lungs are grossly clear, there is no concerning parenchymal mass or nodule identified. T here is no pleural effusion or pneumothorax seen. The tracheobronchial tree is patent. PLEURAL AND PERICARDIAL SPACES: Negative MEDIASTINUM: There is only moderate enhancement of the pulmonary artery and its branches, but there i s currently no CT evidence for pulmonary embolism - consistent with interval resolution of the previo usly seen pulmonary embolism in the right lower lobe lateral basal segment pulmonary artery. There is no mediastinal or hilar adenopathy. IMPRESSION: NEGATIVE FOR PULMONARY EMBOLISM. NO ACUTE FINDINGS.
--- NOTE | 2016-12-19 18:58 | US ---
EXAMINATION TYPE: US venous doppler duplex LE DATE OF EXAM: 12/19/2016 4:26 PM COMPARISON: NONE CLINICAL HISTORY: Pulmonary Embolism I26.99, Z86.72 Deep Vein Thromb. SIDE PERFORMED: Bilateral TECHNIQUE: The lower extremity deep venous system is examined utilizing real time linear array sonog lala with graded compression, doppler sonography and color-flow sonography. VESSELS IMAGED: External Iliac Vein (EIV) Common Femoral Vein Deep Femoral Vein Greater Saphenous Vein * Femoral Vein Popliteal Vein Small Saphenous Vein * Proximal Calf Veins (* superficial vessels) Right Leg: Negative for DVT Left Leg: Negative for DVT Grayscale, color doppler, spectral doppler imaging performed of the deep veins of the lower extremiti es. There is normal flow, compressibility, vascular waveforms bilaterally. IMPRESSION: NEGATIVE FOR DEEP VENOUS THROMBOSIS, BILATERAL LOWER EXTREMITIES.
== END | disposition home or self-care (01) ==
LOC: RADUSMAIN 15:51
PROVIDERS: ATTEND Internal Medicine Hematology & Oncology
DX: I26.99 Other pulmonary embolism without acute cor pulmonale (principal); Z86.72 Personal history of thrombophlebitis
CPT/HCPCS: 82565; 84520; 93970; 71275; Q9967

== ENCOUNTER 2016-12-21 07:36 | Observation (INO) | payer OTHER ==
[2016-12-20 11:13] VITALS: BMI 32.9
[~2016-12-21 07:36] MED LIST changes: +DEXAMETHASONE SOD PHOSPHATE 10 MG/ML 1 ML VIAL IV ONE; +HEPARIN SODIUM,PORCINE 5,000 UNIT/ML 1 ML VIAL SQ ONE; -LACTATED RINGERS 1,000 ML IV SCH; +LIDOCAINE 1% 20 ML VIAL (10MG/ML) FOR IV START INTRADERMA PRN; +MIDAZOLAM 2 MG/2 ML VIAL IV PRN; +ONDANSETRON 4 MG/2 ML VIAL IVP ONE; +SCOPOLAMINE 1.5MG/72HR PATCH TRANSDERM ONE; +ceFAZolin 2 GM in SODIUM CHLORIDE 0.9% 100 ML IVPB ONE
[2016-12-21] MEDS: LACTATED RINGERS 1,000 ML IV SCH ×2 (08:07→13:04)
[2016-12-21 08:12] LABS: Glucose,Whole Blood 196 mg/dL (75-99)
--- NOTE | 2016-12-21 08:51 | P.GSHP ---
History of Present Illness H&P Date: 12/21/16 Chief Complaint: GERD This a 51-year-old male for from Dr. Tyron Be.The patient has had long- standing problems with reflux esophagitis. The patient underwent recent EGD is found have evidence of esophagitis. Patient has been well informed on the procedure of laparoscopic Davis fundoplication. The patient is aware the risk of the conversion to the open procedure, risk of injury to the stomach, liver and spleen. The patient is also a risk of recurrent GERD and dysphagia symptoms. The patient understands there is a postoperative diet of full liquids for 2 weeks after surgery. Past Medical History Past Medical History: CVA/TIA, Diabetes Mellitus, Deep Vein Thrombosis (DVT), GERD/Reflux, Hyperlipidemia, Hypertension, Musculoskeletal Disorder, Pulmonary Embolus (PE), Syncope Additional Past Medical History / Comment(s): Hiatal Hernia,states "unable to pass barium swallow but able to swallow some foods and fluids." LUMBAR STENOSIS. HX DVT LT CALF, THEN PE. HX IBS. COLON POLYPS, hypertensive cardio vascular disease with left ventricular hypertrophy. cataracts. CVA 06-12-17-PEG tube-rt side of body temperature intolerance History of Any Multi-Drug Resistant Organisms: MRSA Date of last positivie culture/infection: MDRO Source:: sputum Past Surgical History: Appendectomy, Cholecystectomy Additional Past Surgical History / Comment(s): EXPLORATORY LAPAROTOMY, FUSION L4 -L5, colonoscopy, PEG tube Past Anesthesia/Blood Transfusion Reactions: No Reported Reaction Past Psychological History: Anxiety Additional Psychological History / Comment(s): Pt lives with friends. He rents a room. He is independent. Smoking Status: Never smoker Past Alcohol Use History: Rare Additional Past Alcohol Use History / Comment(s): Patient has been a lifelong nonsmoker. He drinks alcohol rarely. 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 Past Drug Use History: None Reported - Past Family History Father History Unknown: Yes Mother Family Medical History: Cancer, Deep Vein Thrombosis (DVT) Medications and Allergies Home Medications Medication Instructions Recorded Confirmed Type Insulin Aspart [NovoLOG] See Protocol SQ AC-TID PRN 08/13/15 12/21/16 History Aspirin 325 mg PEG/G-TUBE DAILY 07/09/16 12/21/16 History Insulin Glargine [Lantus] 25 unit SQ HS 07/09/16 12/21/16 History ALPRAZolam [Xanax] 0.25 mg PEG/G-TUBE BID PRN 10/13/16 12/21/16 History Cholecalciferol (Vitamin D3) 5 ml PEG/G-TUBE DAILY 10/13/16 12/21/16 History [D--Zoë] Gabapentin 600 mg PEG/G-TUBE TID PRN 10/13/16 12/21/16 History Ipratropium-Albuterol Nebulize 3 ml INHALATION RT-QID PRN 10/13/16 12/21/16 History [Duoneb 0.5 mg-3 mg/3 ml Soln] Magnesium Oxide [Mag-Ox] 400 mg PEG/G-TUBE DAILY 10/13/16 12/21/16 History Metoprolol Tartrate [Lopressor] 25 mg PEG/G-TUBE BID 10/13/16 12/21/16 History Omeprazole [PriLOSEC] 20 mg PEG/G-TUBE QAM 10/13/16 12/21/16 History Rivaroxaban [Xarelto] 15 mg PEG/G-TUBE DAILY 10/13/16 12/21/16 History Simvastatin [Zocor] 40 mg PEG/G-TUBE HS 10/13/16 12/21/16 History Amitriptyline HCl [Elavil] 25 mg PEG/G-TUBE BID 12/07/16 12/21/16 History Ranitidine HCl 150 mg PEG/G-TUBE BID 12/07/16 12/21/16 History Allergies Allergy/AdvReac Type Severity Reaction Status Date / Time vancomycin Allergy kidneys Verified 12/21/16 08:15 shutdown venom-honey bee Allergy Anaphylaxis Verified 12/21/16 08:15 [bee venom (honey bee)] Surgical - Exam Vital Signs Temp Pulse Resp BP Pulse Ox 97.0 F L 87 18 145/80 95 12/21/16 08:04 12/21/16 08:04 12/21/16 08:04 12/21/16 08:04 12/21/16 08:04 - General well developed, no distress - Eyes PERRL - ENT normal pinna - Neck no masses - Respiratory normal expansion - Cardiovascular Rhythm: regular - Abdomen Abdomen: soft, non tender Results - Labs Abnormal Lab Results - Last 24 Hours (Table) 12/21/16 Range/Units 08:03 POC Glucose (mg/dL) 196 H (75-99) mg/dL Assessment and Plan Plan: GERD. We will perform laparoscopic Davis fundoplication.
[2016-12-21] MEDS ORDERED: MIDAZOLAM 2 MG/2 ML VIAL ONE (09:09)
[2016-12-21] MEDS ORDERED: PROPOFOL 10 MG/ML 20 ML VIAL IV ONE (09:09)
[2016-12-21] MEDS ORDERED: fentaNYL (PF) 50 MCG/ML 2 ML AMP ONE (09:09)
[2016-12-21] MEDS ORDERED: LIDOCAINE 1%-EPI 1:100,000 20 ML VIAL ONE (09:09)
[2016-12-21] MEDS ORDERED: NEOSTIGMINE 1 MG/ML 10 ML VIAL ONE (09:09)
[2016-12-21] MEDS ORDERED: ROCURONIUM BROMIDE 10 MG/ML 10 ML VIAL IV ONE (09:09)
[2016-12-21] MEDS ORDERED: PHENYLEPHRINE-0.9% NACL SYG 1 MG/10 ML SYRINGE ONE (09:09)
[2016-12-21] MEDS ORDERED: GLYCOPYRROLATE 0.2 MG/ML 2 ML VIAL ONE (09:09)
[2016-12-21] MEDS ORDERED: SUCCINYLCHOLINE CHLORIDE VIAL 200 MG/10 ML VIAL IV ONE (09:09)
[2016-12-21] MEDS ORDERED: LIDOCAINE 1% INJ 10MG/ML (20 ML MDV) ONE (09:09)
[2016-12-21] MEDS ORDERED: BUPIVACAIN-EPI 0.25%-1:200,000 30 ML VIAL SQ ONE ×2 (09:44)
[2016-12-21] MEDS ORDERED: ONDANSETRON 4 MG/2 ML VIAL IVP PRN (10:22)
--- NOTE | 2016-12-21 10:22 | P.OP ---
Date of Procedure: 12/21/16 Preoperative Diagnosis: GERD Postoperative Diagnosis: GERD Procedure(s) Performed: Laparoscopic Davis fundoplication Replacement of gastrostomy tube Implants: Anesthesia: DANNYA Surgeon: Shelton Lynn Estimated Blood Loss (ml): 5 Pathology: none sent Condition: stable Disposition: PACU Indications for Procedure: Operative Findings: Description of Procedure: The patient was placed on the operating table in the supine position. The patient received general anesthesia. And was placed in dorsal lithotomy position. The patient was prepped and draped in the usual sterile fashion. The skin incision sites were anesthetized with 1% local Xylocaine. The skin was incised in the left periumbilical area and then using a blade less 5 mm trocar under direct visualization panel cavity was entered. After adequate insufflation the laparoscope was then placed into the peritoneal cavity. Next a 5 mm trochars placed in the right epigastric position. Another 5 millimeter trocar the right lateral position. Another 5 millimeter trocar in the left lateral position a 5 mm trocar is placed in the left epigastric position. And then the initial 5 mm trocar was exchanged for a 10 mm trocar. The left lateral lobe liver was retracted. The hernia was seen. The crural defect was then dissected using the Harmonic scissors device. A 360 crural dissection was performed the esophagus stomach was reduced back into the peritoneal Cavity. The crural defect was then closed using 2-0 Ethibond suture. Next the fundus of the stomach was mobilized using the Del Valle scissors device. and then a 58-Welsh bougie dilator was placed oropharynx passed into the esophagus and stomach the fundal plication wrap was then performed by grasping the fundus posteriorly and bringing it around the esophagus and stomach fundoplication was then performed using 2-0 Ethibond suture. Care was taken that the fundal location rested over top of the intra-abdominal esophagus. There was no injury seen to the stomach or esophagus. The dilator was then withdrawn. The abdomen was irrigated there is no bleeding seen. The trochars were then withdrawn and then skin incision sites were closed using 3-0 Monocryl suture Steri-Strips are applied. The patient's gastrostomy tube was replaced at the end the case. A 20 -Welsh gastrostomy was inserted into the tract. The balloon was inflated with 20 mL of saline. Patient thought procedure well and sent to recovery room in stable condition.
[2016-12-21] MEDS ORDERED: LACTATED RINGERS 1,000 ML IV ONE (10:25)
[2016-12-21 11:11] LABS: Glucose,Whole Blood 122 mg/dL (75-99)
[2016-12-21] MEDS: HYDROmorphone 1 MG/ML 1 ML SYRINGE IVP PRN ×5 (11:18→22:15)
[2016-12-21 12:30] LABS: Glucose,Whole Blood 85 mg/dL (75-99)
[2016-12-21] MEDS: D5-0.45% NACL WITH KCL 20MEQ/L 1,000 ML IV SCH ×2 (12:39→20:29)
[2016-12-21] MEDS ORDERED: ALPRAZolam 0.25 MG TAB PEG/G-TUBE PRN (16:12)
[2016-12-21] MEDS ORDERED: IPRATROPIUM-ALBUTEROL 3 ML NEB INHALATION PRN (16:12)
[2016-12-21] MEDS ORDERED: GABAPENTIN 300 MG CAP PEG/G-TUBE PRN (16:12)
--- NOTE | 2016-12-21 16:18 | FL ---
EXAMINATION TYPE: FL esophagus cervic/pharynx DATE OF EXAM: 12/21/2016 LIMITED UGI-ESOPHAGRAM: CLINICAL HISTORY: Status post Chin fundoplication surgery earlier today for hiatal hernia per bridgett ent. TECHNIQUE: Limited esophagram is performed utilizing 20 oz of Omnipaque 350. A total of 32 seconds o f fluoroscopic time was utilized during procedure. Comparison: CTA chest from 2 days ago. FINDINGS: The patient swallowed contrast without difficulty or delay. Esophageal peristalsis and mo tility are within normal limits. There is good flow of contrast along the diaphragmatic hiatus into t he stomach, there is no evidence of contrast extravasation to suggest leak. No persistent hiatal odalis ia is seen. Patient remains asymptomatic. Small amount of pneumoperitoneum is noted presumed postsurg ical. Overlying percutaneous gastrostomy is redemonstrated. IMPRESSION: No evidence of leak or significant obstruction status post Chin fundoplication surgery earlier today.
[2016-12-21 17:14] LABS: Glucose,Whole Blood 182 mg/dL (75-99)
[2016-12-21] MEDS: INSULIN LISPRO (humaLOG) 300 UNIT/3 ML VIAL SQ SCH ×2 (17:28→20:29)
[2016-12-21 20:02] LABS: Glucose,Whole Blood 274 mg/dL (75-99)
[2016-12-21] MEDS: METOPROLOL TARTRATE 25 MG TAB PEG/G-TUBE SCH (20:31)
[2016-12-21] MEDS: AMITRIPTYLINE HCL 25 MG TAB PEG/G-TUBE SCH (20:31)
[2016-12-21] MEDS: FAMOTIDINE 20 MG TAB PEG/G-TUBE SCH (20:32)
[2016-12-21] MEDS ORDERED: ATORVASTATIN 20 MG TAB PEG/G-TUBE SCH (21:00)
[2016-12-21] MEDS ORDERED: INSULIN GLARGINE 100 UNIT/ML 10 ML VIAL SQ SCH (21:00)
[2016-12-22 02:10] VITALS: PULSE 94; RESP 16
[2016-12-22] MEDS: D5-0.45% NACL WITH KCL 20MEQ/L 1,000 ML IV SCH ×2 (05:13→12:47)
[2016-12-22] MEDS ORDERED: PANTOPRAZOLE SODIUM 40 MG GRANULE PKT PEG/G-TUBE SCH (07:30)
[2016-12-22] MEDS: LACTATED RINGERS 1,000 ML IV SCH ×2 (07:45)
[2016-12-22 07:47] LABS: Glucose,Whole Blood 209 mg/dL (75-99)
[2016-12-22 07:53] VITALS: BP 124/81; TEMP 97.7
[2016-12-22] MEDS: INSULIN LISPRO (humaLOG) 300 UNIT/3 ML VIAL SQ SCH ×2 (07:55→12:45)
[2016-12-22] MEDS: AMITRIPTYLINE HCL 25 MG TAB PEG/G-TUBE SCH (07:56)
[2016-12-22] MEDS: METOPROLOL TARTRATE 25 MG TAB PEG/G-TUBE SCH (07:57)
[2016-12-22] MEDS: FAMOTIDINE 20 MG TAB PEG/G-TUBE SCH (07:57)
[2016-12-22] MEDS ORDERED: MAGNESIUM OXIDE 400 MG TAB PEG/G-TUBE SCH (09:00)
[2016-12-22] MEDS ORDERED: ENOXAPARIN 40 MG/0.4 ML SYRINGE SQ SCH (09:00)
[2016-12-22] MEDS ORDERED: CHOLECALCIFEROL 1,000 UNIT TAB PEG/G-TUBE SCH (09:00)
[2016-12-22] MEDS ORDERED: ASPIRIN 325 MG TAB PEG/G-TUBE SCH (09:00)
[2016-12-22] MEDS: HYDROmorphone 1 MG/ML 1 ML SYRINGE IVP PRN (09:31)
[2016-12-22 10:16] LABS: Hemoglobin A1C 11.6 % (4.2-6.1)
[2016-12-22 12:20] LABS: Glucose,Whole Blood 273 mg/dL (75-99)
--- NOTE | 2016-12-22 12:34 | P.DS ---
Providers Date of admission: 12/21/16 22:55 Expected date of discharge: 12/22/16 Attending physician: Shelton Lynn Consults: 12/21/16 10:22 Consult Physician Routine Consulting Provider: Tyron Cadena Reason/Comments: Medical management Do you want consulting provider notified?: Yes Primary care physician: [facility] Course: Is a 51-year-old male who underwent laparoscopic Davis fundal plication. The patient did well postoperative. Please see CHART for details. Procedures: Davis fundoplication Patient Condition at Discharge: Good Plan - Discharge Summary New Discharge Prescriptions: New Docusate [Colace] 100 mg PO BID #20 capsule HYDROcodone/APAP 7.5-325MG [[place] 7.5] 1 each PO Q4H PRN #60 tab PRN Reason: Pain No Action Insulin Aspart [NovoLOG] See Protocol SQ AC-TID PRN PRN Reason: scale Insulin Glargine [Lantus] 25 unit SQ HS Aspirin 325 mg PEG/G-TUBE DAILY ALPRAZolam [Xanax] 0.25 mg PEG/G-TUBE BID PRN PRN Reason: Anxiety Ipratropium-Albuterol Nebulize [Duoneb 0.5 mg-3 mg/3 ml Soln] 3 ml INHALATION RT-QID PRN PRN Reason: Shortness Of Breath Simvastatin [Zocor] 40 mg PEG/G-TUBE HS Omeprazole [PriLOSEC] 20 mg PEG/G-TUBE QAM Metoprolol Tartrate [Lopressor] 25 mg PEG/G-TUBE BID Magnesium Oxide [Mag-Ox] 400 mg PEG/G-TUBE DAILY Gabapentin 600 mg PEG/G-TUBE TID PRN PRN Reason: Pain Cholecalciferol (Vitamin D3) [D--Zoë] 5 ml PEG/G-TUBE DAILY Rivaroxaban [Xarelto] 15 mg PEG/G-TUBE DAILY Amitriptyline HCl [Elavil] 25 mg PEG/G-TUBE BID Ranitidine HCl 150 mg PEG/G-TUBE BID Discharge Medication List Insulin Aspart [NovoLOG] See Protocol SQ AC-TID PRN 08/13/15 [History] Aspirin 325 mg PEG/G-TUBE DAILY 07/09/16 [History] Insulin Glargine [Lantus] 25 unit SQ HS 07/09/16 [History] ALPRAZolam [Xanax] 0.25 mg PEG/G-TUBE BID PRN 10/13/16 [History] Cholecalciferol (Vitamin D3) [D--Zoë] 5 ml PEG/G-TUBE DAILY 10/13/16 [History] Gabapentin 600 mg PEG/G-TUBE TID PRN 10/13/16 [History] Ipratropium-Albuterol Nebulize [Duoneb 0.5 mg-3 mg/3 ml Soln] 3 ml INHALATION RT -QID PRN 10/13/16 [History] Magnesium Oxide [Mag-Ox] 400 mg PEG/G-TUBE DAILY 10/13/16 [History] Metoprolol Tartrate [Lopressor] 25 mg PEG/G-TUBE BID 10/13/16 [History] Omeprazole [PriLOSEC] 20 mg PEG/G-TUBE QAM 10/13/16 [History] Rivaroxaban [Xarelto] 15 mg PEG/G-TUBE DAILY 10/13/16 [History] Simvastatin [Zocor] 40 mg PEG/G-TUBE HS 10/13/16 [History] Amitriptyline HCl [Elavil] 25 mg PEG/G-TUBE BID 12/07/16 [History] Ranitidine HCl 150 mg PEG/G-TUBE BID 12/07/16 [History] Docusate [Colace] 100 mg PO BID #20 capsule 12/22/16 [Rx] HYDROcodone/APAP 7.5-325MG [[place] 7.5] 1 each PO Q4H PRN #60 tab 12/22/16 [Rx] Follow up Appointment(s)/Referral(s): Shelton Lynn MD [STAFF PHYSICIAN] - 2 Weeks Activity/Diet/Wound Care/Special Instructions: O liquid diet 2 weeks Discharge Disposition: HOME SELF-CARE
== END 2016-12-22 13:45 | disposition home or self-care (01) ==
LOC: OR 07:36 → 3SUR 10:48 → OR 22:55 → 3SUR 22:55
PROVIDERS: ADMIT Surgery; ATTEND Surgery
DX: K21.0 Gastro-esophageal reflux disease with esophagitis (principal); I10 Essential (primary) hypertension; Z86.718 Personal history of other venous thrombosis and embolism; Z86.711 Personal history of pulmonary embolism; K44.9 Diaphragmatic hernia without obstruction or gangrene; Z86.73 Personal history of transient ischemic attack (TIA), and cerebral infarction without residual deficits; E11.9 Type 2 diabetes mellitus without complications; E78.5 Hyperlipidemia, unspecified; Z93.1 Gastrostomy status; Z86.14 Personal history of Methicillin resistant Staphylococcus aureus infection; Z79.899 Other long term (current) drug therapy; Z79.82 Long term (current) use of aspirin; Z79.4 Long term (current) use of insulin; Z79.01 Long term (current) use of anticoagulants; Z88.1 Allergy status to other antibiotic agents; Z91.030 Bee allergy status
CPT/HCPCS: 43280; 43760; 83036; 74210; G0378 ×2; J2250; J0330; J1644; J1100; J2710; Q9967; J0690; J2405; J1650; J3010; J1170 ×2; J2370; J2704

== ENCOUNTER → 2017-03-28 | Outpatient (CLI) | payer OTHER ==
--- NOTE | 2017-03-28 09:14 | XR ---
EXAMINATION TYPE: XR chest 2V DATE OF EXAM: 03/28/2017 COMPARISON: Chest x-ray July 13, 2016. CTA chest December 19, 2016. HISTORY: Cough and hoarseness for 3 weeks. TECHNIQUE: Frontal and lateral views of the chest are obtained. FINDINGS: There is some new patchy left basilar atelectasis and/or infiltrate. Right lung is clear. No large pleural effusion or pneumothorax is seen bilaterally. The cardiac silhouette size is stable and within normal limits. The osseous structures are intact. Cholecystectomy clips are redemonstra gray. IMPRESSION: New patchy left basilar atelectasis and/or infiltrate.
== END | disposition home or self-care (01) ==
LOC: RADXRMAIN 08:54
PROVIDERS: ATTEND Family Medicine
DX: R05 Cough (principal)
CPT/HCPCS: 71020

== ENCOUNTER → 2017-03-29 | Outpatient (CLI) | payer OTHER ==
--- NOTE | 2017-03-29 10:33 | FL ---
EXAMINATION: Cervical and Thoracic Esophagram DATE OF EXAM: 03/29/2017 CLINICAL INDICATION: 51 year-old male history of recent stroke. Davis fundoplication on 12/21/2016. P ersistent hoarseness and recent diagnosis of pneumonia. COMPARISON: None. Total Fluoroscopy Time: 36 seconds. Total images: 39. FINDINGS: There is gross deformity to the patient's swallow on the frontal view with apparent lifting of the hy popharynx only along the right half with secondary abnormal bulging of the hypopharynx towards the le ft. Moderate to severe piriform sinus residuals are present and there is bob silent aspiration demo nstrated. The examination is terminated at this point. There are some tertiary peristaltic contractions noted within the thoracic esophagus but the thoracic esophagus is not assessed in detail at this time. IMPRESSION: 1. Exam prematurely terminated. 2. Gross deformity to the patient's swallow with hypopharyngeal excursion primarily on the right caus ing abnormal bulging towards the left. Moderate to severe piriform sinus residuals result along with bob silent aspiration. This may represent sequela of the patient's recent stroke. 3. Speech pathology consultation is recommended especially given the patient's probable aspiration pn eumonia.
== END | disposition home or self-care (01) ==
LOC: RADFLMAIN 09:19
PROVIDERS: ATTEND Surgery
DX: J38.7 Other diseases of larynx (principal); R13.10 Dysphagia, unspecified; Z86.73 Personal history of transient ischemic attack (TIA), and cerebral infarction without residual deficits
CPT/HCPCS: 74220

== ENCOUNTER → 2017-04-11 | Outpatient (CLI) | payer OTHER ==
--- NOTE | 2017-04-11 15:11 | XR ---
EXAMINATION TYPE: XR chest 2V DATE OF EXAM: 04/11/2017 COMPARISON: NONE HISTORY: Pneumonia. Follow-up examination TECHNIQUE: Frontal and lateral views of the chest are obtained. FINDINGS: The previously seen left basilar opacity appears as linear subsegmental atelectasis and pu lmonary vasculature on the lateral image enhance resolved in the interim. No focal consolidation, ple ural effusion or pneumothorax is seen. Cardia mediastinal silhouette is upper limits of normal but un changed from the prior. The known cholecystectomy clips are not visualized on today's examination giv en patient body habitus. Mild degenerative changes of the thoracic spine are noted. IMPRESSION: Resolution of the previously seen left basilar airspace disease with residual subsegment al atelectasis.
== END ==
LOC: RADXRMAIN 14:49
PROVIDERS: ATTEND Family Medicine
DX: J18.9 Pneumonia, unspecified organism (principal)
CPT/HCPCS: 71020

== ENCOUNTER → 2017-06-04 | Outpatient (CLI) | payer OTHER ==
--- NOTE | 2017-06-04 13:36 | FL ---
EXAMINATION TYPE: FL barium swallow w video DATE OF EXAM: 06/04/2017 COMPARISON: NONE HISTORY: Dysphasia TECHNIQUE: Fluoroscopy. FINDINGS: Fluoroscopic guidance was provided for the procedure performed in conjunction with the [facility] pathology department. Please see complete report forthcoming from the Speech Pathology departmen t. Various consistencies from thin liquid to solids were administered. Fluoroscopy time 1.42 minutes. Number of images: 0. No aspiration or penetration was evident. There is pooling within the vallecula. There is delay in swallowing propulsion. Very little contrast passes through the proximal esophagus a nd cricopharyngeus muscle. IMPRESSION: 1. Spasm or stenosis at the proximal esophagus. 2. No aspiration or penetration was evident during the exam.
== END | disposition home or self-care (01) ==
LOC: RADFLMAIN 10:45
PROVIDERS: ATTEND Surgery
DX: R13.10 Dysphagia, unspecified (principal)
CPT/HCPCS: 74230

== ENCOUNTER → 2017-07-04 | Outpatient (CLI) | payer OTHER ==
[2017-07-04 15:27] LABS: Blood Urea Nitrogen 14 mg/dL (9-20); Non-African American GFR(MDRD) >60 (>60 ml/min/1.73 sqM)
--- NOTE | 2017-07-04 16:09 | CT ---
EXAMINATION TYPE: CT chest w con DATE OF EXAM: 07/04/2017 COMPARISON: CTA chest dated 12-19-2016. Esophagram dated 12-21-2016. HISTORY: chronic cough/Hemoptysis. CT DLP: 409 mGycm. Automated Exposure Control for Dose Reduction was Utilized. TECHNIQUE: CT scan of the thorax is performed following with IV Contrast, patient injected with 100 mL of Omnipaque 300. FINDINGS: LUNGS: The lungs are grossly clear, there is no concerning parenchymal mass or nodule identified. T here is no pleural effusion or pneumothorax seen. The tracheobronchial tree is patent. MEDIASTINUM: There are no greater than 1 cm hilar or mediastinal lymph nodes. No pericardial effusi on is seen. There is postsurgical change of the thumb fundoplication surgery at diaphragmatic hiatus . There is debris and fluid dilated esophagus diffusely up to level of thyroid gland at its origin. OTHER: Bilateral gynecomastia is redemonstrated. Cholecystectomy clips are redemonstrated. Inferior t o the sternum there is anterior ossified structure of uncertain etiology perhaps dystrophic or postsu rgical seen best coronal image 6 redemonstrated. IMPRESSION: No suspicious acute pulmonary process. New diffuse dilated esophagus, correlate for signi ficant obstruction related to Chin fundoplication surgery.
== END | disposition home or self-care (01) ==
LOC: RADCTMAIN 14:55
PROVIDERS: ATTEND Family Medicine
DX: K22.8 Other specified diseases of esophagus (principal)
CPT/HCPCS: 82565; 84520; 71260; 36415; Q9967

== ENCOUNTER 2017-07-08 07:54 | Inpatient (IN) | payer OTHER ==
[2017-07-08] MEDS ORDERED: ACETAMINOPHEN TAB 500 MG TAB PO STA ×2 (08:25→08:32)
--- NOTE | 2017-07-08 08:29 | ED ---
General Adult HPI - General Chief complaint: Shortness of Breath Stated complaint: Cough Time Seen by Provider: 07/08/17 08:20 Source: patient, RN notes reviewed Mode of arrival: ambulatory Limitations: no limitations - History of Present Illness Initial comments: patient is a pleasant 52-year-old male presenting to the emergency Department with complaints of cough. Onset of symptoms was several days ago. Patient started feeling worse yesterday. Patient states cough has been productive for several colors of sputum. Patient was unaware he had a fever. Patient did develop a hoarse voice a couple of days ago and he went to ENT who told him he had ALLERGIES. Patient was given Claritin for this.patient does feel somewhat short of breath associated with the cough. Patient does complain of lower back discomfort however this is chronic. - Related Data Home Medications Medication Instructions Recorded Confirmed Insulin Glargine [Lantus] 20 unit SQ HS 07/09/16 07/08/17 Gabapentin 600 mg PO TID 10/13/16 07/08/17 Metoprolol Tartrate [Lopressor] 25 mg PO BID 10/13/16 07/08/17 Simvastatin [Zocor] 40 mg PO HS 10/13/16 07/08/17 Amitriptyline HCl [Elavil] 25 mg PO BID 12/07/16 07/08/17 Escitalopram [Lexapro] 20 mg PO DAILY 06/13/17 07/08/17 Insulin Aspart [NovoLOG Flexpen] 30 units SQ TID 06/13/17 07/08/17 Omeprazole 40 mg PO DAILY 06/13/17 07/08/17 Promethazine 6.25MG/5Ml [Phenergan 6.25 mg PO Q12H 06/13/17 07/08/17 Syrup] Allergies Allergy/AdvReac Type Severity Reaction Status Date / Time vancomycin Allergy kidneys Verified 07/08/17 08:27 shutdown venom-honey bee Allergy Anaphylaxis Verified 07/08/17 08:27 [bee venom (honey bee)] Review of Systems ROS Statement: Those systems with pertinent positive or pertinent negative responses have been documented in the HPI. ROS Other: All systems not noted in ROS Statement are negative. Constitutional: Reports: chills. Denies: fever Eyes: Denies: eye pain, vision change ENT: Reports: throat pain. Denies: ear pain Respiratory: Reports: cough, dyspnea Cardiovascular: Denies: chest pain Endocrine: Denies: fatigue Gastrointestinal: Denies: abdominal pain Genitourinary: Denies: dysuria Musculoskeletal: Reports: back pain (chronic) Skin: Denies: rash Neurological: Denies: weakness Past Medical History Past Medical History: CVA/TIA, Diabetes Mellitus, Deep Vein Thrombosis (DVT), GERD/Reflux, Hyperlipidemia, Hypertension, Musculoskeletal Disorder, Pulmonary Embolus (PE), Syncope Additional Past Medical History / Comment(s): states "unable to pass barium swallow but able to swallow some foods and fluids." LUMBAR STENOSIS. HX DVT LT CALF, THEN PE. HX IBS. COLON POLYPS, hypertensive cardio vascular disease with left ventricular hypertrophy. cataracts. 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 CVA so uses PEG tube -rt side of body temperature intolerance History of Any Multi-Drug Resistant Organisms: MRSA Date of last positivie culture/infection: MDRO Source:: sputum Past Surgical History: Appendectomy, Cholecystectomy Additional Past Surgical History / Comment(s): EXPLORATORY LAPAROTOMY, FUSION L4 -L5, colonoscopy, PEG tube Past Anesthesia/Blood Transfusion Reactions: No Reported Reaction Past Psychological History: Anxiety Smoking Status: Never smoker Past Alcohol Use History: None Reported Past Drug Use History: None Reported - Past Family History Father History Unknown: Yes Mother Family Medical History: Cancer, Deep Vein Thrombosis (DVT) General Exam Limitations: no limitations General appearance: alert, in no apparent distress Head exam: Present: atraumatic Eye exam: Present: PERRL, other (left lower eye is mildly injected) ENT exam: Present: normal oropharynx Neck exam: Present: normal inspection Respiratory exam: Present: rales (left base) Cardiovascular Exam: Present: regular rate, normal rhythm GI/Abdominal exam: Present: soft. Absent: tenderness Extremities exam: Present: normal inspection. Absent: pedal edema, calf tenderness Neurological exam: Present: alert Psychiatric exam: Present: normal affect, normal mood Skin exam: Present: normal color Course Vital Signs 07/08/17 07/08/17 07/08/17 07:56 08:26 08:56 Temperature 102.4 F H Pulse Rate 96 106 H 98 Respiratory 20 22 20 Rate Blood Pressure 92/55 100/56 86/40 O2 Sat by Pulse 86 L 95 100 Oximetry 07/08/17 07/08/17 07/08/17 09:09 09:37 09:48 Temperature 99.5 F Pulse Rate 103 H 89 86 Respiratory 20 22 20 Rate Blood Pressure 94/45 93/45 98/50 O2 Sat by Pulse 100 100 100 Oximetry 07/08/17 09:56 Temperature Pulse Rate Respiratory 24 Rate Blood Pressure O2 Sat by Pulse Oximetry - Reevaluation(s) Reevaluation #1: 07/08/17 09:31 patient meets criteria for severe sepsis at 9:31 AM. IV fluid bolus has been provided. Blood culture and lactic acid have been ordered. IV antibiotics have been ordered. Case discussed with Dr. Rodriguez, who would like cefepime and Cubicin and ICU admission with consult for Dr. Ruvalcaba. Patient states he does have a history of MRSA lung infection. Patient does have ALLERGY to vancomycin. Patient reevaluated and updated. EKG Findings - EKG Comments: EKG Findings:: sinus tachycardia 101. AR 148. QRS 76. QT 336. QTc 435. Normal axis. Normal QRS. No acute ST change. Medical Decision Making - Lab Data Result diagrams: 07/08/17 08:40 07/08/17 08:40 Lab Results 07/08/17 07/08/17 07/08/17 Range/Units 08:40 08:40 08:40 WBC 10.5 (3.8-10.6) k/uL RBC 4.10 L (4.30-5.90) m/uL Hgb 12.7 L (13.0-17.5) gm/dL Hct 39.2 (39.0-53.0) % MCV 95.6 (80.0-100.0) fL MCH 31.0 (25.0-35.0) pg MCHC 32.4 (31.0-37.0) g/dL RDW 13.1 (11.5-15.5) % Plt Count 114 L (150-450) k/uL Neutrophils % 91 % Lymphocytes % 3 % Monocytes % 4 % Eosinophils % 0 % Basophils % 0 % Neutrophils # 9.5 H (1.3-7.7) k/uL Lymphocytes # 0.3 L (1.0-4.8) k/uL Monocytes # 0.5 (0-1.0) k/uL Eosinophils # 0.0 (0-0.7) k/uL Basophils # 0.0 (0-0.2) k/uL PT (9.0-12.0) sec INR (<1.2) APTT (22.0-30.0) sec Sodium 131 L (137-145) mmol/L Potassium 4.6 (3.5-5.1) mmol/L Chloride 93 L (98-107) mmol/L Carbon Dioxide 30 (22-30) mmol/L Anion Gap 8 mmol/L BUN 17 (9-20) mg/dL Creatinine 0.95 (0.66-1.25) mg/dL Est GFR (MDRD) Af Amer >60 (>60 ml/min/1.73 sqM) Est GFR (MDRD) Non-Af >60 (>60 ml/min/1.73 sqM) Glucose 284 H (74-99) mg/dL Plasma Lactic Acid Calin (0.7-2.0) mmol/L Calcium 8.8 (8.4-10.2) mg/dL Total Bilirubin 1.2 (0.2-1.3) mg/dL AST 18 (17-59) U/L ALT 30 (21-72) U/L Alkaline Phosphatase 80 (38-126) U/L Total Protein 6.3 (6.3-8.2) g/dL Albumin 3.5 (3.5-5.0) g/dL Influenza Type A RNA Not Detected (Not Detectd) Influenza Type B (PCR) Not Detected (Not Detectd) 07/08/17 07/08/17 Range/Units 08:40 08:40 WBC (3.8-10.6) k/uL RBC (4.30-5.90) m/uL Hgb (13.0-17.5) gm/dL Hct (39.0-53.0) % MCV (80.0-100.0) fL MCH (25.0-35.0) pg MCHC (31.0-37.0) g/dL RDW (11.5-15.5) % Plt Count (150-450) k/uL Neutrophils % % Lymphocytes % % Monocytes % % Eosinophils % % Basophils % % Neutrophils # (1.3-7.7) k/uL Lymphocytes # (1.0-4.8) k/uL Monocytes # (0-1.0) k/uL Eosinophils # (0-0.7) k/uL Basophils # (0-0.2) k/uL PT 10.9 (9.0-12.0) sec INR 1.1 (<1.2) APTT 24.9 (22.0-30.0) sec Sodium (137-145) mmol/L Potassium (3.5-5.1) mmol/L Chloride (98-107) mmol/L Carbon Dioxide (22-30) mmol/L Anion Gap mmol/L BUN (9-20) mg/dL Creatinine (0.66-1.25) mg/dL Est GFR (MDRD) Af Amer (>60 ml/min/1.73 sqM) Est GFR (MDRD) Non-Af (>60 ml/min/1.73 sqM) Glucose (74-99) mg/dL Plasma Lactic Acid Calin 1.7 (0.7-2.0) mmol/L Calcium (8.4-10.2) mg/dL Total Bilirubin (0.2-1.3) mg/dL AST (17-59) U/L ALT (21-72) U/L Alkaline Phosphatase (38-126) U/L Total Protein (6.3-8.2) g/dL Albumin (3.5-5.0) g/dL Influenza Type A RNA (Not Detectd) Influenza Type B (PCR) (Not Detectd) - Radiology Data Radiology results: image reviewed (Chest x-ray shows left lower lobe infiltrate) Critical Care Time Critical Care Time: Yes Total Critical Care Time: 33 Disposition Clinical Impression: Severe sepsis, Pneumonia Disposition: ADMITTED IP TO THIS HOSP Referrals: Dasha Marsh MD [Primary Care Provider] - 1-2 days Decision Time: 09:58
[2017-07-08] MEDS ORDERED: HYDROcodone/APAP 5-325MG 1 EACH TAB PO STA (08:33)
[2017-07-08] MEDS: SODIUM CHLORIDE 0.9% 500 ML IV SCH (08:35)
[2017-07-08 08:47] LABS: Basophils % (A) 0 %; Eosinophils % (A) 0 %; HCT 39.2 % (39.0-53.0); HGB 12.7 gm/dL (13.0-17.5); Lymphocytes # (A) 0.3 k/uL (1.0-4.8); Lymphocytes % (A) 3 %; MCHC 32.4 g/dL (31.0-37.0); MCV 95.6 fL (80.0-100.0); Mean Platelet Volume 8.1; Monocytes # (A) 0.5 k/uL (0-1.0); Monocytes % (A) 4 %; Neutrophils # (A) 9.5 k/uL (1.3-7.7); Neutrophils % (A) 91 %; Platelet Count 114 k/uL (150-450); RDW 13.1 % (11.5-15.5); WBC 10.5 k/uL (3.8-10.6)
[2017-07-08 08:56] LABS: ALT 30 U/L (21-72); AST 18 U/L (17-59); Albumin 3.5 g/dL (3.5-5.0); Alkaline Phosphatase 80 U/L (38-126); Anion Gap 8 mmol/L; Blood Urea Nitrogen 17 mg/dL (9-20); Calcium 8.8 mg/dL (8.4-10.2); Carbon Dioxide 30 mmol/L (22-30); Chloride 93 mmol/L (98-107); Glucose 284 mg/dL (74-99); INR 1.1 (<1.2); Partial Thromboplastin Time 24.9 sec (22.0-30.0); Potassium 4.6 mmol/L (3.5-5.1); Prothrombin Time 10.9 sec (9.0-12.0); Sodium 131 mmol/L (137-145); Total Bilirubin 1.2 mg/dL (0.2-1.3); Total Protein 6.3 g/dL (6.3-8.2)
[2017-07-08] MEDS ORDERED: SODIUM CHLORIDE 0.9% 1,000 ML IV ONE (09:04)
--- NOTE | 2017-07-08 09:15 | XR ---
EXAMINATION TYPE: XR chest 2V DATE OF EXAM: 07/08/2017 COMPARISON: 06/06/2017 HISTORY: Fever TECHNIQUE: Frontal and lateral views of the chest are obtained. FINDINGS: There is a mild infiltrate in the left lower lobe. There is coarsening of interstitial mar kings. There is no gross heart failure. Heart size is normal. There is no sign of pleural effusion. IMPRESSION: There is increasing left lower lobe mild infiltrate compared to last exam. No heart fail ure.
[2017-07-08] MEDS ORDERED: SODIUM CHLORIDE 0.9% 500 ML IV STA (09:19)
[2017-07-08] MEDS ORDERED: SODIUM CHLORIDE 0.9% 1,000 ML IV STA (09:19)
[2017-07-08] MEDS ORDERED: CEFEPIME 2 GM in SODIUM CHLORIDE 0.9% 50 ML IVPB STA (09:29)
[2017-07-08] MEDS ORDERED: DAPTOmycin IN 0.9% NACL 500 MG/10 ML SYRINGE IVP SCH (09:30)
[2017-07-08] MEDS ORDERED: PNEUMONIA PROTOCOL UTILIZED 1 EACH MISC PO PRN (09:59)
[2017-07-08] MEDS ORDERED: IPRATROPIUM-ALBUTEROL 3 ML NEB INHALATION PRN (09:59)
[2017-07-08] MEDS ORDERED: SODIUM CHLORIDE 0.9% 250 ML BAG ONE (11:10)
[2017-07-08] MEDS ORDERED: CEFTAROLINE FOSAMIL IVPB ONE (11:10)
[2017-07-08 11:26] LABS: Appearance,Urine Clear (Clear); Bilirubin,Urine Negative (Negative); Blood,Urine Negative (Negative); Color,Urine Yellow; Glucose,Urine (UA) Trace (Negative); Hyaline Casts,Urine 36 /lpf (0-2); Ketones,Urine Negative (Negative); Leukocyte Esterase,Urine Negative (Negative); Mucus,Urine Moderate /hpf; Nitrite,Urine Negative (Negative); Protein,Urine 1+ (Negative); RBC,Urine 1 /hpf (0-5); Specific Gravity,Urine 1.021 (1.001-1.035); Squamous Epithelial Cell,Urine <1 /hpf (0-4); WBC,Urine 3 /hpf (0-5)
[2017-07-08] MEDS: SODIUM CHLORIDE 0.9% 1,000 ML IV SCH (11:29)
[2017-07-08 11:34] LABS: Glucose,Whole Blood 166 mg/dL (75-99)
--- NOTE | 2017-07-08 12:26 | P.HPIM ---
History of Present Illness H&P Date: 07/08/17 Chief Complaint: COUGH WEAKNESS 52 y/o male that comes with symptoms of shortness of breath, cough and weakness. Yestrday felt very weak. Fever and chills at home. He says he has had symptoms of cough for several weeks now. No other sick contacts at home. Review of Systems Constitutional: Reports chills, Reports fever, Reports weakness Ears, nose, mouth and throat: Denies bleeding gums, Denies sinus pain, Denies sore throat Cardiovascular: Denies chest pain, Denies syncope Respiratory: Reports cough with sputum, Denies pleurisy Gastrointestinal: Denies abdominal pain, Denies diarrhea, Denies nausea, Denies vomiting Musculoskeletal: Reports myalgias, Denies arm numbness/tingling Integumentary: Denies rash Neurological: Denies aphasia, Denies sensory deficit Psychiatric: Denies depression, Denies sadness/tearfulness Endocrine: Denies polyphagia, Denies polyuria Hematologic/Lymphatic: Denies lymphadenopathy Allergic/Immunologic: Denies allergic rhinitis, Denies wheezing Past Medical History Past Medical History: CVA/TIA, Diabetes Mellitus, Deep Vein Thrombosis (DVT), GERD/Reflux, Hyperlipidemia, Hypertension, Musculoskeletal Disorder, Pulmonary Embolus (PE), Syncope Additional Past Medical History / Comment(s): states "unable to pass barium swallow but able to swallow some foods and fluids." LUMBAR STENOSIS. HX DVT LT CALF, THEN PE. HX IBS. COLON POLYPS, hypertensive cardio vascular disease with left ventricular hypertrophy. cataracts. rt side of body temperature intolerance History of Any Multi-Drug Resistant Organisms: MRSA Date of last positivie culture/infection: MDRO Source:: sputum Past Surgical History: Appendectomy, Cholecystectomy Additional Past Surgical History / Comment(s): EXPLORATORY LAPAROTOMY, FUSION L4 -L5, colonoscopy, PEG tube history - removed in october Past Anesthesia/Blood Transfusion Reactions: No Reported Reaction Past Psychological History: Anxiety Additional Psychological History / Comment(s): Pt lives with friends. He rents a room. He is independent. Smoking Status: Never smoker Past Alcohol Use History: None Reported Additional Past Alcohol Use History / Comment(s): Patient has been a lifelong nonsmoker. He drinks alcohol rarely. 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 Past Drug Use History: None Reported - Past Family History Father History Unknown: Yes Mother Family Medical History: Cancer, Deep Vein Thrombosis (DVT) Medications and Allergies Home Medications Medication Instructions Recorded Confirmed Type Insulin Glargine [Lantus] 20 unit SQ HS 07/09/16 07/08/17 History Gabapentin 600 mg PO TID 10/13/16 07/08/17 History Metoprolol Tartrate [Lopressor] 25 mg PO BID 10/13/16 07/08/17 History Simvastatin [Zocor] 40 mg PO HS 10/13/16 07/08/17 History Amitriptyline HCl [Elavil] 25 mg PO BID 12/07/16 07/08/17 History Escitalopram [Lexapro] 20 mg PO DAILY 06/13/17 07/08/17 History Insulin Aspart [NovoLOG Flexpen] 30 units SQ TID 06/13/17 07/08/17 History Omeprazole 40 mg PO DAILY 06/13/17 07/08/17 History Promethazine 6.25MG/5Ml [Phenergan 6.25 mg PO Q12H 06/13/17 07/08/17 History Syrup] HYDROcodone/APAP 5-325MG [[place] 1 tab PO Q4HR PRN 07/08/17 07/08/17 History 5-325] Allergies Allergy/AdvReac Type Severity Reaction Status Date / Time vancomycin Allergy kidneys Verified 07/08/17 08:27 shutdown venom-honey bee Allergy Anaphylaxis Verified 07/08/17 08:27 [bee venom (honey bee)] Physical Exam Vitals: Vital Signs Temp Pulse Resp BP Pulse Ox 07/08/17 10:19 88 16 97/52 100 07/08/17 09:56 24 07/08/17 09:48 99.5 F 86 20 98/50 100 07/08/17 09:37 89 22 93/45 100 07/08/17 09:09 103 H 20 94/45 100 07/08/17 08:56 98 20 86/40 100 07/08/17 08:26 106 H 22 100/56 95 07/08/17 07:56 102.4 F H 96 20 92/55 86 L Intake and Output 07/07/17 07/08/17 07/08/17 22:59 06:59 14:59 Other: Weight 102.965 kg Patient Weight 07/09/17 06:59 Weight 102.965 kg - EENT Eyes: EOMI, PERRLA - Neck Neck: no lymphadenopathy - Respiratory Respiratory: bilateral: CTA, negative: rales, rhonchi - Cardiovascular Rhythm: regular Heart sounds: normal: S1, S2 - Gastrointestinal General gastrointestinal: normal bowel sounds, soft, no tenderness - Integumentary Integumentary: no cyanotic, no rash - Neurologic Neurologic: CNII-XII intact - Musculoskeletal Musculoskeletal: strength equal bilaterally - Psychiatric Psychiatric: A&O x's 3, appropriate affect, intact judgment & insight Results CBC & Chem 7: 07/08/17 08:40 07/08/17 08:40 Labs: Abnormal Lab Results - Last 24 Hours (Table) 07/08/17 07/08/17 Range/Units 08:40 08:40 RBC 4.10 L (4.30-5.90) m/uL Hgb 12.7 L (13.0-17.5) gm/dL Plt Count 114 L (150-450) k/uL Neutrophils # 9.5 H (1.3-7.7) k/uL Lymphocytes # 0.3 L (1.0-4.8) k/uL Sodium 131 L (137-145) mmol/L Chloride 93 L (98-107) mmol/L Glucose 284 H (74-99) mg/dL Assessment and Plan (1) Pneumonia Narrative/Plan: IV teflaro and cefepime influenza screen negaive Current Visit: Yes Status: Acute Code(s): J18.9 - PNEUMONIA, UNSPECIFIED ORGANISM SNOMED Code(s): 045654980 (2) Sepsis Narrative/Plan: improving continue IVF lactic acid normal repeat in 6 hr Current Visit: Yes Status: Acute Code(s): A41.9 - SEPSIS, UNSPECIFIED ORGANISM SNOMED Code(s): 67948088 (3) Shock Narrative/Plan: improved with fluids monitor closely if stepdown Current Visit: Yes Status: Acute Code(s): R57.9 - SHOCK, UNSPECIFIED SNOMED Code(s): 35222617 (4) Cerebrovascular accident Narrative/Plan: past history no acute symptoms but patient also with hx of DM. Will start baby aspirin Current Visit: No Status: Acute Code(s): I63.9 - CEREBRAL INFARCTION, UNSPECIFIED SNOMED Code(s): 417782654 (5) Diabetes Narrative/Plan: acck AC and hs Current Visit: No Status: Acute Code(s): E11.9 - TYPE 2 DIABETES MELLITUS WITHOUT COMPLICATIONS SNOMED Code(s): 19454231 (6) History of CVA (cerebrovascular accident) Narrative/Plan: no acute issues will start baby aspirin especially with hx of DM Current Visit: No Status: Acute Code(s): Z86.73 - PRSNL HX OF TIA (TIA), AND CEREB INFRC W/O RESID DEFICITS SNOMED Code(s): 821878359 (7) Hyperlipemia Narrative/Plan: on zocor Current Visit: No Status: Acute Code(s): E78.5 - HYPERLIPIDEMIA, UNSPECIFIED SNOMED Code(s): 63525785
[2017-07-08] MEDS ORDERED: INSULIN ASPART 100 UNIT/ML 1 ML 10 ML VIAL SQ SCH (12:30)
[2017-07-08] MEDS: HYDROcodone/APAP 5-325MG 1 EACH TAB PO PRN ×3 (12:40→22:32)
[2017-07-08] MEDS: SODIUM CHLORIDE 0.9% IV SCH (12:40)
[2017-07-08] MEDS: [UNRECOGNIZED DRUG - OTHER] IV SCH (12:40)
--- NOTE | 2017-07-08 13:36 | P.CNPUL ---
History of Present Illness Consult date: 07/08/17 Reason for consult: dyspnea, cough, pneumonia, abnormal CXR/CT Chief complaint: shortness of breath, cough, pneumonia History of present illness: consult dated 07/08/2017 52-year-old male presented to the emergency department with complaints of cough and shortness of breath. His been going on for a couple weeks at least but got worse over the last couple of days. In addition he developed some laryngitis. He was coughing up some phlegm. It was yellow in color. Not coughing up any blood. The patient did have a fever. The patient has a history of becoming lifelong nonsmoker. Chest x-ray reveals a left lower lobe infiltrate. The ER physician, Dr. England call me about possibly transferring the patient to the ICU for sepsis. The patient had a normal lactic acid. The patient's blood pressure was initially a bit low but responded nicely to fluids. The patient was stable from a hemodynamic and respiratory standpoint after some fluid resuscitation and I felt the patient could safely go to 6 selective. I did see him and he looks pretty comfortable at this time. Review of Systems A 12 point review of system is positive for fever cough chest congestion phlegm production. The patient hasn't been feeling well for a couple of days. Actually been sick for a couple weeks but more stiff significantly in the last couple of days. Past Medical History Past Medical History: CVA/TIA, Diabetes Mellitus, Deep Vein Thrombosis (DVT), GERD/Reflux, Hyperlipidemia, Hypertension, Musculoskeletal Disorder, Pulmonary Embolus (PE), Syncope Additional Past Medical History / Comment(s): states "unable to pass barium swallow but able to swallow some foods and fluids." LUMBAR STENOSIS. HX DVT LT CALF, THEN PE. HX IBS. COLON POLYPS, hypertensive cardio vascular disease with left ventricular hypertrophy. cataracts. rt side of body temperature intolerance History of Any Multi-Drug Resistant Organisms: MRSA Date of last positivie culture/infection: MDRO Source:: sputum Past Surgical History: Appendectomy, Cholecystectomy Additional Past Surgical History / Comment(s): EXPLORATORY LAPAROTOMY, FUSION L4 -L5, colonoscopy, PEG tube history - removed in october Past Anesthesia/Blood Transfusion Reactions: No Reported Reaction Past Psychological History: Anxiety Additional Psychological History / Comment(s): Pt lives with friends. He rents a room. He is independent. Smoking Status: Never smoker Past Alcohol Use History: None Reported Additional Past Alcohol Use History / Comment(s): Patient has been a lifelong nonsmoker. He drinks alcohol rarely. 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 Past Drug Use History: None Reported - Past Family History Father History Unknown: Yes Mother Family Medical History: Cancer, Deep Vein Thrombosis (DVT) Medications and Allergies Home Medications Medication Instructions Recorded Confirmed Type Insulin Glargine [Lantus] 20 unit SQ HS 07/09/16 07/08/17 History Gabapentin 600 mg PO TID 10/13/16 07/08/17 History Metoprolol Tartrate [Lopressor] 25 mg PO BID 10/13/16 07/08/17 History Simvastatin [Zocor] 40 mg PO HS 10/13/16 07/08/17 History Amitriptyline HCl [Elavil] 25 mg PO BID 12/07/16 07/08/17 History Escitalopram [Lexapro] 20 mg PO DAILY 06/13/17 07/08/17 History Insulin Aspart [NovoLOG Flexpen] 30 units SQ TID 06/13/17 07/08/17 History Omeprazole 40 mg PO DAILY 06/13/17 07/08/17 History Promethazine 6.25MG/5Ml [Phenergan 6.25 mg PO Q12H 06/13/17 07/08/17 History Syrup] HYDROcodone/APAP 5-325MG [[place] 1 tab PO Q4HR PRN 07/08/17 07/08/17 History 5-325] Allergies Allergy/AdvReac Type Severity Reaction Status Date / Time vancomycin Allergy kidneys Verified 07/08/17 08:27 shutdown venom-honey bee Allergy Anaphylaxis Verified 07/08/17 08:27 [bee venom (honey bee)] Physical Exam Osteopathic Statement: *. No significant issues noted on an osteopathic structural exam other than those noted in the History and Physical/Consult. Vitals: Vital Signs Temp Pulse Pulse Resp BP BP BP 07/08/17 12:00 16 07/08/17 11:15 97.2 F L 90 16 89/56 103/60 07/08/17 10:19 88 16 97/52 07/08/17 09:56 24 07/08/17 09:48 99.5 F 86 20 98/50 07/08/17 09:37 89 22 93/45 07/08/17 09:09 103 H 20 94/45 07/08/17 08:56 98 20 86/40 07/08/17 08:26 106 H 22 100/56 07/08/17 07:56 102.4 F H 96 20 92/55 Pulse Ox 07/08/17 12:00 07/08/17 11:15 95 07/08/17 10:19 100 07/08/17 09:56 07/08/17 09:48 100 07/08/17 09:37 100 07/08/17 09:09 100 07/08/17 08:56 100 07/08/17 08:26 95 07/08/17 07:56 86 L Intake and Output 07/07/17 07/08/17 07/08/17 22:59 06:59 14:59 Intake Total 320 Output Total 300 Balance 20 Intake: IV 100 Sodium Chloride 0.9% 1, 100 000 ml @ 100 mls/hr IV . Q10H [facility] Rx#:[id number] Oral 220 Output: Urine 300 Other: Weight 102 kg Patient Weight 07/09/17 06:59 Weight 102 kg No acute distress, oriented 3. HEENT examination is grossly unremarkable. Mucous membranes are moist. No oral lesions. Neck supple. Full range of motion. No adenopathy thyromegaly or neck vein distention. Cardiovascular examination reveals regular rhythm rate. S1-S2 normal. No S3 or S4. No discernible murmur noted. Lungs reveal a few crackles at the left lung base. A few scattered rhonchi noted. No wheezes. Breath sounds are equal bilaterally.. Abdomen soft bowel sounds are heard. No masses or tenderness. Extremities are intact. No cyanosis clubbing or edema. Skin is without rash or lesion. Neurologic examination is brief but nonfocal. Results - Laboratory Findings CBC and BMP: 07/08/17 08:40 07/08/17 08:40 PT/INR, D-dimer PT 10.9 sec (9.0-12.0) 07/08/17 08:40 INR 1.1 (<1.2) 07/08/17 08:40 Abnormal lab findings: Abnormal Labs 07/08/17 07/08/17 07/08/17 08:40 08:40 11:10 RBC 4.10 L Hgb 12.7 L Plt Count 114 L Neutrophils # 9.5 H Lymphocytes # 0.3 L Sodium 131 L Chloride 93 L Glucose 284 H POC Glucose (mg/dL) Urine Protein 1+ H Urine Glucose (UA) Trace H Hyaline Casts 36 H Urine Mucus Moderate H 07/08/17 11:33 RBC Hgb Plt Count Neutrophils # Lymphocytes # Sodium Chloride Glucose POC Glucose (mg/dL) 166 H Urine Protein Urine Glucose (UA) Hyaline Casts Urine Mucus - Diagnostic Findings Chest x-ray: image reviewed (chest x-rays labs and medications are all reviewed) Assessment and Plan (1) DVT (deep venous thrombosis) Current Visit: Yes Status: Acute Code(s): I82.409 - ACUTE EMBOLISM AND THOMBOS UNSP DEEP VN UNSP LOWER EXTREMITY SNOMED Code(s): 682835058 (2) Hypertension Current Visit: Yes Status: Acute Code(s): I10 - ESSENTIAL (PRIMARY) HYPERTENSION SNOMED Code(s): 10135379 (3) Pneumonia Current Visit: Yes Status: Acute Code(s): J18.9 - PNEUMONIA, UNSPECIFIED ORGANISM SNOMED Code(s): 402349989 (4) Sepsis Current Visit: Yes Status: Acute Code(s): A41.9 - SEPSIS, UNSPECIFIED ORGANISM SNOMED Code(s): 52145608 (5) Cerebrovascular accident Current Visit: No Status: Acute Code(s): I63.9 - CEREBRAL INFARCTION, UNSPECIFIED SNOMED Code(s): 769198438 (6) Diabetes Current Visit: No Status: Acute Code(s): E11.9 - TYPE 2 DIABETES MELLITUS WITHOUT COMPLICATIONS SNOMED Code(s): 96016342 (7) History of CVA (cerebrovascular accident) Current Visit: No Status: Acute Code(s): Z86.73 - PRSNL HX OF TIA (TIA), AND CEREB INFRC W/O RESID DEFICITS SNOMED Code(s): 804762077 (8) Pulmonary embolism Current Visit: No Status: Acute Code(s): I26.99 - OTHER PULMONARY EMBOLISM WITHOUT ACUTE COR PULMONALE SNOMED Code(s): 49758137 Plan: Plan dated 07/08/2017. The patient was interviewed and examined. Labs x-rays a medications are all reviewed. He'll be adjusted accordingly. Chest x-ray was not really impressive. He did have a minimal infiltrate of the left lung base. Time with Patient: Greater than 30
[2017-07-08] MEDS: GABAPENTIN 300 MG CAP PO SCH ×2 (13:57→22:20)
[2017-07-08] MEDS ORDERED: CEFEPIME 2 GM in SODIUM CHLORIDE 0.9% 50 ML IVPB SCH (16:00)
[2017-07-08 16:44] LABS: Glucose,Whole Blood 108 mg/dL (75-99)
[2017-07-08] MEDS: INSULIN ASPART 100 UNIT/ML 1 ML 10 ML VIAL SQ SCH ×2 (16:57→22:21)
[2017-07-08 20:22] LABS: Hemoglobin A1C 7.4 % (4.0-6.0)
[2017-07-08 20:54] LABS: Glucose,Whole Blood 172 mg/dL (75-99)
[2017-07-08] MEDS: INSULIN DETEMIR 100 UNIT/ML 10 ML VIAL SQ SCH (22:21)
[2017-07-08] MEDS: ATORVASTATIN 20 MG TAB PO SCH (22:22)
[2017-07-08] MEDS: PROMETHAZINE 6.25MG/5ML 147.5 MG/118 ML BOTTLE PO SCH (22:26)
[2017-07-08] MEDS: AMITRIPTYLINE HCL 25 MG TAB PO SCH (22:30)
[2017-07-09 06:04] LABS: Glucose,Whole Blood 163 mg/dL (75-99)
[2017-07-09] MEDS: SODIUM CHLORIDE 0.9% 1,000 ML IV SCH ×4 (06:27→23:03)
[2017-07-09] MEDS: SODIUM CHLORIDE 0.9% IV SCH ×2 (06:29→11:13)
[2017-07-09] MEDS: [UNRECOGNIZED DRUG - OTHER] IV SCH ×2 (06:29→11:13)
[2017-07-09] MEDS: INSULIN ASPART 100 UNIT/ML 1 ML 10 ML VIAL SQ SCH ×4 (06:52→21:01)
--- NOTE | 2017-07-09 07:24 | XR ---
EXAMINATION TYPE: XR chest 2V DATE OF EXAM: 07/09/2017 COMPARISON: Yesterday HISTORY: Short of breath TECHNIQUE: Frontal and lateral views of the chest are obtained. FINDINGS: There is mild pulmonary vascular congestion. There is some Patchy infiltrate in the right lower lobe. I see no definite pleural effusion. There is also some infiltrate in the left lower lobe. IMPRESSION: There is increasing bilateral pneumonic infiltrates compared to yesterday and worse on t he right side. This is more likely related to bronchopneumonia. Heart size is normal.
[2017-07-09] MEDS ORDERED: AZITHROMYCIN 500 MG in SODIUM CHLORIDE 0.9% 250 ML IVPB SCH (09:00)
[2017-07-09] MEDS: AMITRIPTYLINE HCL 25 MG TAB PO SCH ×2 (09:01→20:06)
[2017-07-09] MEDS: HYDROcodone/APAP 5-325MG 1 EACH TAB PO PRN ×3 (09:01→20:08)
[2017-07-09] MEDS: GABAPENTIN 300 MG CAP PO SCH ×3 (09:01→20:08)
[2017-07-09] MEDS: PROMETHAZINE 6.25MG/5ML 147.5 MG/118 ML BOTTLE PO SCH ×2 (09:02→20:07)
[2017-07-09] MEDS: cefTRIAXone IN SWFI 1,000 MG/10 ML SYRINGE IVP SCH (09:02)
[2017-07-09] MEDS: PANTOPRAZOLE 40 MG TABLET PO SCH (09:03)
--- NOTE | 2017-07-09 11:24 | P.PN ---
Subjective Progress Note Date: 07/09/17 Principal diagnosis: Pneumonia Progress note dated 07/09/2017 This is a 52-year-old male seen yesterday in consultation. He came into the emergency department with complaints of cough and shortness of breath. It been going on for a couple weeks but got worse over the last couple days prior to admission. In addition the patient has some coughing up of yellow-green phlegm. Not coughing up any blood. The patient did have a fever. The patient is a lifelong nonsmoker. Chest x-ray revealed bilateral pneumonia. Today's chest x-rays a bit worse. Clinically he is a bit better. The patient came in with a normal lactic acid. Was a little hypotensive initially. Did present with sepsis syndrome picture. Responded nicely to fluids. Did not need to come to the ICU. Resting comfortably on the sixth floor. Objective - Vital Signs Vital signs: Vital Signs Temp 97.7 F 07/09/17 11:15 Pulse 102 H 07/09/17 11:15 Resp 20 07/09/17 11:15 BP 102/55 07/09/17 11:15 Pulse Ox 95 07/09/17 11:15 Intake & Output 07/08/17 07/09/17 07/09/17 18:59 06:59 18:59 Intake Total 500 600 Output Total 500 700 Balance 0 -700 600 Weight 102 kg 99.2 kg Intake: IV 100 Sodium Chloride 0.9% 1, 100 000 ml @ 100 mls/hr IV . Q10H [facility] Rx#:[id number] Oral 400 600 Output: Urine 300 500 Emesis 200 200 Other: Voiding Method Urinal Urinal # Voids 3 3 # Emeses 2 2 - Exam No acute distress, oriented 3. HEENT examination is grossly unremarkable. Mucous membranes are moist. No oral lesions. Neck supple. Full range of motion. No adenopathy thyromegaly or neck vein distention. Cardiovascular examination reveals regular rhythm rate. S1-S2 normal. No S3 or S4. No discernible murmur noted. Lungs reveal diffuse bilateral rhonchi. Breath sounds are more significant in the right lower lobe. No wheezes. No distinct crackles. Breath sounds are equal bilaterally.. Abdomen soft bowel sounds are heard. No masses or tenderness. Extremities are intact. No cyanosis clubbing or edema. Skin is without rash or lesion. Neurologic examination is brief but nonfocal. - Labs CBC & Chem 7: 07/08/17 08:40 07/08/17 08:40 Labs: Abnormal Lab Results - Last 24 Hours (Table) 07/08/17 07/08/17 07/08/17 Range/Units 11:10 11:33 16:38 POC Glucose (mg/dL) 166 H 108 H (75-99) mg/dL Urine Protein 1+ H (Negative) Urine Glucose (UA) Trace H (Negative) Hyaline Casts 36 H (0-2) /lpf Urine Mucus Moderate H (None) /hpf 07/08/17 07/09/17 Range/Units 20:53 06:02 POC Glucose (mg/dL) 172 H 163 H (75-99) mg/dL Urine Protein (Negative) Urine Glucose (UA) (Negative) Hyaline Casts (0-2) /lpf Urine Mucus (None) /hpf Microbiology - Last 24 Hours (Table) 07/08/17 08:40 Blood Culture - Preliminary Blood No Growth after 24 hours 07/08/17 08:40 Gram Stain - Preliminary Sputum 07/08/17 11:10 Urine Culture - Preliminary Urine,Voided Assessment and Plan (1) DVT (deep venous thrombosis) Current Visit: Yes Status: Acute Code(s): I82.409 - ACUTE EMBOLISM AND THOMBOS UNSP DEEP VN UNSP LOWER EXTREMITY SNOMED Code(s): 879471475 (2) Hypertension Current Visit: Yes Status: Acute Code(s): I10 - ESSENTIAL (PRIMARY) HYPERTENSION SNOMED Code(s): 22485834 (3) Pneumonia Current Visit: Yes Status: Acute Code(s): J18.9 - PNEUMONIA, UNSPECIFIED ORGANISM SNOMED Code(s): 456038810 (4) Sepsis Current Visit: Yes Status: Acute Code(s): A41.9 - SEPSIS, UNSPECIFIED ORGANISM SNOMED Code(s): 44800940 (5) Cerebrovascular accident Current Visit: No Status: Acute Code(s): I63.9 - CEREBRAL INFARCTION, UNSPECIFIED SNOMED Code(s): 188427583 (6) Diabetes Current Visit: No Status: Acute Code(s): E11.9 - TYPE 2 DIABETES MELLITUS WITHOUT COMPLICATIONS SNOMED Code(s): 72071601 (7) History of CVA (cerebrovascular accident) Current Visit: No Status: Acute Code(s): Z86.73 - PRSNL HX OF TIA (TIA), AND CEREB INFRC W/O RESID DEFICITS SNOMED Code(s): 937284119 (8) Pulmonary embolism Current Visit: No Status: Acute Code(s): I26.99 - OTHER PULMONARY EMBOLISM WITHOUT ACUTE COR PULMONALE SNOMED Code(s): 27235981 Plan: Plan dated 07/08/2017. The patient was interviewed and examined. Labs x-rays a medications are all reviewed. He'll be adjusted accordingly. Chest x-ray was not really impressive. He did have a minimal infiltrate of the left lung base. Plan dated 07/09/2017. Labs and x-rays are reviewed. Medications are reviewed. Chest x-rays a bit respiratory on the right side. Clinically he is doing better. Feeling better. Took his oxygen off last night for a bit. Need to put it back on. We'll continue to follow. Await culture results. Medications are reviewed and labs are reviewed Time with Patient: Less than 30
[2017-07-09 11:38] LABS: Glucose,Whole Blood 116 mg/dL (75-99)
--- NOTE | 2017-07-09 13:41 | P.PN ---
Subjective Progress Note Date: 07/09/17 Principal diagnosis: SOB Patient was trying to throw up when he was seen. Small amount of clear liquids and food chunks came up with the vomiting. No fevers or chills. He is still having shortness of breath Objective - Vital Signs Vital signs: Vital Signs Temp 97.7 F 07/09/17 11:15 Pulse 102 H 07/09/17 12:00 Resp 20 07/09/17 12:00 BP 102/55 07/09/17 11:15 Pulse Ox 95 07/09/17 11:15 Intake & Output 07/08/17 07/09/17 07/09/17 18:59 06:59 18:59 Intake Total 500 600 Output Total 500 700 Balance 0 -700 600 Weight 102 kg 99.2 kg Intake: IV 100 Sodium Chloride 0.9% 1, 100 000 ml @ 100 mls/hr IV . Q10H [facility] Rx#:[id number] Oral 400 600 Output: Urine 300 500 Emesis 200 200 Other: Voiding Method Urinal Urinal # Voids 3 3 1 # Bowel Movements 0 # Emeses 2 2 - Exam Constitutional: No acute distress, conversant, pleasant Eyes:Anicteric sclerae, moist conjunctiva, no lid-lag, PERRLA, ENMT: Oropharynx clear, no erythema, exudates Neck: Supple, FROM, no masses, or JVD, No carotid bruits, No thyromegaly Lungs: Bilateral rhonchi and wheezes, Clear to percussion, Normal respiratory effort, no accessory muscle use Cardiovascular: Heart regular in rate and rhythm, No murmurs, gallops, or rubs, No peripheral edema Abdominal: Soft, Nontender, no guarding, rebound or rigidity, Normoactive bowel sounds, No hepatomegaly, No splenomegaly, No palpable mass Skin: Normal temperature, tone, texture, turgor, no induration, No subcutaneous nodules, No rash, lesions, No ulcers Extremities: No digital cyanosis, No clubbing, Pedal pulses intact and symmetrical, Radial pulses intact and symmetrical, No calf tenderness Psychiatric: Alert and oriented to person, place and time, appropriate affect, intact judgement Neuro: Muscles Strength 5/5 in all 4 extremities, Sensation to light touch grossly present throughout, Cranial nerves II-XII grossly intact, no focal sensory deficits - Labs CBC & Chem 7: 07/08/17 08:40 07/08/17 08:40 Labs: Abnormal Lab Results - Last 24 Hours (Table) 07/08/17 07/08/17 07/09/17 Range/Units 16:38 20:53 06:02 POC Glucose (mg/dL) 108 H 172 H 163 H (75-99) mg/dL 07/09/17 Range/Units 11:32 POC Glucose (mg/dL) 116 H (75-99) mg/dL Microbiology - Last 24 Hours (Table) 07/08/17 11:10 Urine Culture - Preliminary Urine,Voided Group D Enterococcus 07/08/17 08:40 Blood Culture - Preliminary Blood No Growth after 24 hours 07/08/17 08:40 Gram Stain - Preliminary Sputum Assessment and Plan Plan: (1) Acute community-acquired pneumonia Continue ceftriaxone and azithromycin No history of COPD so no indication for steroids. Nebs every 6 hours when necessary (2) Sepsis Resolving Likely secondary to #1 Continue IVF (3) History of dysphagia/Cerebrovascular accident Continue baby aspirin Received speech therapy in the past but despite that he continued to have significant dysphagia Video swallow evaluation from last May reviewed. Consult GI (4) Diabetes type 2 acck AC and hs Continue insulin detemir 20 units daily as well as sliding scale insulin (7) Hyperlipidemia On zocor
[2017-07-09 16:46] LABS: Glucose,Whole Blood 124 mg/dL (75-99)
[2017-07-09] MEDS: ATORVASTATIN 20 MG TAB PO SCH (20:06)
[2017-07-09 20:30] LABS: Glucose,Whole Blood 160 mg/dL (75-99)
[2017-07-09] MEDS: INSULIN DETEMIR 100 UNIT/ML 10 ML VIAL SQ SCH (21:01)
[2017-07-10] MEDS: HYDROcodone/APAP 5-325MG 1 EACH TAB PO PRN (04:34)
[2017-07-10 05:39] LABS: Glucose,Whole Blood 83 mg/dL (75-99)
[2017-07-10] MEDS: INSULIN ASPART 100 UNIT/ML 1 ML 10 ML VIAL SQ SCH ×4 (05:41→21:12)
[2017-07-10 06:43] LABS: ALT 28 U/L (21-72); AST 22 U/L (17-59); Albumin 2.5 g/dL (3.5-5.0); Alkaline Phosphatase 67 U/L (38-126); Anion Gap 7 mmol/L; Blood Urea Nitrogen 8 mg/dL (9-20); Calcium 8.3 mg/dL (8.4-10.2); Carbon Dioxide 28 mmol/L (22-30); Chloride 106 mmol/L (98-107); Glucose 75 mg/dL (74-99); Magnesium 1.8 mg/dL (1.6-2.3); Phosphorus 2.6 mg/dL (2.5-4.5); Potassium 3.8 mmol/L (3.5-5.1); Sodium 141 mmol/L (137-145); Total Bilirubin 0.4 mg/dL (0.2-1.3); Total Protein 5.1 g/dL (6.3-8.2)
[2017-07-10 06:47] LABS: Basophils % (A) 0 %; Eosinophils # (A) 0.1 k/uL (0-0.7); Eosinophils % (A) 1 %; HCT 34.7 % (39.0-53.0); HGB 11.2 gm/dL (13.0-17.5); Hypochromasia Slight; Lymphocytes # (A) 0.7 k/uL (1.0-4.8); Lymphocytes % (A) 11 %; MCH 31.4 pg (25.0-35.0); MCHC 32.4 g/dL (31.0-37.0); MCV 97.1 fL (80.0-100.0); Mean Platelet Volume 7.8; Monocytes # (A) 0.3 k/uL (0-1.0); Monocytes % (A) 5 %; Neutrophils # (A) 5.1 k/uL (1.3-7.7); Neutrophils % (A) 81 %; RBC 3.58 m/uL (4.30-5.90); RDW 13.2 % (11.5-15.5); WBC 6.4 k/uL (3.8-10.6)
[2017-07-10 07:22] LABS: Platelet Count 98 k/uL (150-450)
[2017-07-10] MEDS: cefTRIAXone IN SWFI 1,000 MG/10 ML SYRINGE IVP SCH (07:37)
[2017-07-10] MEDS: PROMETHAZINE 6.25MG/5ML 147.5 MG/118 ML BOTTLE PO SCH ×2 (07:39→19:59)
[2017-07-10] MEDS: GABAPENTIN 300 MG CAP PO SCH ×3 (07:39→19:59)
[2017-07-10] MEDS: PANTOPRAZOLE 40 MG TABLET PO SCH (07:40)
[2017-07-10] MEDS: AMITRIPTYLINE HCL 25 MG TAB PO SCH ×2 (07:40→19:59)
[2017-07-10] MEDS ORDERED: AZITHROMYCIN 500 MG TAB PO SCH (09:00)
--- NOTE | 2017-07-10 10:58 | XR ---
EXAMINATION TYPE: XR chest 1V DATE OF EXAM: 07/10/2017 COMPARISON: 07/09/2017 HISTORY: Admitted for bilateral pneumonia TECHNIQUE: Single frontal view of the chest is obtained. FINDINGS: There is improved aeration at the lung bases in comparison to the prior of 07/28/2017. Ther e remains a patchy right basilar. The previously seen pulmonary vascular congestion has also improved in the interim. Cardiac silhouette is mildly enlarged. IMPRESSION: Improved mild pulmonary vascular congestion and bibasilar opacities with less conspicuou s right lower lobe patchy opacity remaining.
[2017-07-10] MEDS: SODIUM CHLORIDE 0.9% 1,000 ML IV SCH ×2 (11:08→23:50)
[2017-07-10] MEDS: PIPERACILLIN-TAZOBACTAM 3.375 GM in DEXTROSE/WATER 1 50ML.BAG IVPB SCH ×2 (11:08→19:05)
[2017-07-10 11:29] LABS: Glucose,Whole Blood 112 mg/dL (75-99)
--- NOTE | 2017-07-10 11:59 | P.PN ---
Subjective Progress Note Date: 07/10/17 Principal diagnosis: SOB Feeling better. Objective - Vital Signs Vital signs: Vital Signs Temp 98.4 F 07/10/17 08:00 Pulse 97 07/10/17 08:00 Resp 20 07/10/17 08:00 BP 116/68 07/10/17 08:00 Pulse Ox 95 07/10/17 08:00 Intake & Output 07/09/17 07/10/17 07/10/17 18:59 06:59 18:59 Intake Total 600 1600 180 Output Total 500 Balance 600 1100 180 Weight 99.9 kg Intake: IV 1600 Sodium Chloride 0.9% 1, 1600 000 ml @ 100 mls/hr IV . Q10H [facility] Rx#:[id number] Oral 600 180 Output: Urine 250 Emesis 250 Other: Voiding Method Urinal Urinal # Voids 1 1 1 # Bowel Movements 0 - Exam Constitutional: No acute distress, conversant, pleasant Eyes:Anicteric sclerae, moist conjunctiva, no lid-lag, PERRLA, ENMT: Oropharynx clear, no erythema, exudates Neck: Supple, FROM, no masses, or JVD, No carotid bruits, No thyromegaly Lungs: Improved bilateral rhonchi and wheezes, Clear to percussion, Normal respiratory effort, no accessory muscle use Cardiovascular: Heart regular in rate and rhythm, No murmurs, gallops, or rubs, No peripheral edema Abdominal: Soft, Nontender, no guarding, rebound or rigidity, Normoactive bowel sounds, No hepatomegaly, No splenomegaly, No palpable mass Skin: Normal temperature, tone, texture, turgor, no induration, No subcutaneous nodules, No rash, lesions, No ulcers Extremities: No digital cyanosis, No clubbing, Pedal pulses intact and symmetrical, Radial pulses intact and symmetrical, No calf tenderness Psychiatric: Alert and oriented to person, place and time, appropriate affect, intact judgement Neuro: Muscles Strength 5/5 in all 4 extremities, Sensation to light touch grossly present throughout, Cranial nerves II-XII grossly intact, no focal sensory deficits - Labs CBC & Chem 7: 07/10/17 05:53 07/10/17 05:53 Labs: Abnormal Lab Results - Last 24 Hours (Table) 07/08/17 07/09/17 07/09/17 Range/Units 08:40 16:44 20:29 RBC (4.30-5.90) m/uL Hgb (13.0-17.5) gm/dL Hct (39.0-53.0) % Plt Count (150-450) k/uL Lymphocytes # (1.0-4.8) k/uL BUN (9-20) mg/dL Creatinine (0.66-1.25) mg/dL POC Glucose (mg/dL) 124 H 160 H (75-99) mg/dL Hemoglobin A1c 7.4 H (4.0-6.0) % Calcium (8.4-10.2) mg/dL Total Protein (6.3-8.2) g/dL Albumin (3.5-5.0) g/dL 07/10/17 07/10/17 07/10/17 Range/Units 05:53 05:53 11:17 RBC 3.58 L (4.30-5.90) m/uL Hgb 11.2 L (13.0-17.5) gm/dL Hct 34.7 L (39.0-53.0) % Plt Count 98 L (150-450) k/uL Lymphocytes # 0.7 L (1.0-4.8) k/uL BUN 8 L (9-20) mg/dL Creatinine 0.48 L (0.66-1.25) mg/dL POC Glucose (mg/dL) 112 H (75-99) mg/dL Hemoglobin A1c (4.0-6.0) % Calcium 8.3 L (8.4-10.2) mg/dL Total Protein 5.1 L (6.3-8.2) g/dL Albumin 2.5 L (3.5-5.0) g/dL Microbiology - Last 24 Hours (Table) 07/08/17 08:40 Blood Culture - Preliminary Blood No Growth after 48 hours 07/08/17 08:40 Gram Stain - Final Sputum Sputum Culture - Final Clare albicans 07/08/17 11:10 Urine Culture - Preliminary Urine,Voided Group D Enterococcus Assessment and Plan Plan: (1) Acute community-acquired pneumonia Zwitch abx to zosyn due to likely aspiration. No history of COPD so no indication for steroids. Nebs every 6 hours when necessary D/W pulm (2) History of dysphagia/Cerebrovascular accident Continue baby aspirin D/W speech therapy Recommendation to keep NPO except water and ice chips Consult GI and general surgery (3) Diabetes type 2 acck AC and hs Decrease insulin detemir dose to 10 units daily as he will be NPO SSI with blood sugar checks every 6hours. (7) Hyperlipidemia On zocor
--- NOTE | 2017-07-10 12:14 | P.PN ---
Subjective Progress Note Date: 07/10/17 Principal diagnosis: aspiration pneumonia This is a 52-year-old male seen yesterday in consultation. He came into the emergency department with complaints of cough and shortness of breath. It been going on for a couple weeks but got worse over the last couple days prior to admission. In addition the patient has some coughing up of yellow-green phlegm. Not coughing up any blood. The patient did have a fever. The patient is a lifelong nonsmoker. Chest x-ray revealed bilateral pneumonia. Today's chest x-rays a bit worse. Clinically he is a bit better. The patient came in with a normal lactic acid. Was a little hypotensive initially. Did present with sepsis syndrome picture. Responded nicely to fluids. Did not need to come to the ICU. Resting comfortably on the sixth floor. On 07/10/2017 patient is seen in follow-up on selective care unit.Complaining of excessive coughing, severe coughing spells. Lung sounds are positive for coarse inspiratory crackles over bilateral bases. 2 L per nasal cannula with O2 sat at 95-97%.Had been afebrile since admission. Today's chest x-ray has been reviewed by Dr. Barron shows basilar opacities with persistent right upper lobe patchy opacity. Previously seen Dr. Barron in the office on , his chronic cough was felt to be related to his swallowing and dysphagia causing irritation of the upper airways. Status post left sided brainstem stroke right-sided weakness involving the face, upper and lower extremities and difficulties with speech and swallow. The patient apparently had a PEG tube inserted for chronic dysphagia and ultimately the PEG tube was removed as the patient had improvement in his swallowing process. He was seen by Dr. Bautista, for symptoms of dysphagia and the patient was also known to have chronic problems with reflux esophagitis. He was taken to the operating room and the patient underwent a Davis fundoplication on 12/21/2016. Postoperative esophagram showed no evidence of any leak or significant obstruction post surgery. The patient had continued to have dysphagia and further evaluation was done by an EGD that was done on 05/11/2017 and the patient was found to have some is a skilled nursing narrowing proximally and EGD and balloon dilatation of the esophagus was done. The most recent swallow evaluation that was done on 06/04/2017 and showed spasm/stenosis at the proximal esophagus without evidence of any aspiration or penetration. The patient was in the hospital on July 2016 for symptoms of syncope. At that time CT angios the chest was done that showed no evidence of any lung disease. There was a questionable filling defect in the right lower lobe pulmonary artery branch. Dopplers of the lower extremities were negative and the patient was committed to anticoagulation with Eliquis for a total of 6 months and then discontinued. A repeat CAT scan of the chest was done on December 2016 that showed no residual clot in the right lower pulmonary artery branch. Neurology has been reviewed and shows urine culture positive for group D enterococcus, sputum culture positive for Clare, blood culture shows no growth at the 48 hour jessica. Based on his history and after speaking to Clare speech pathologist, aspiration is strongly suspected. Objective - Vital Signs Vital signs: Vital Signs Temp 98.4 F 07/10/17 08:00 Pulse 97 07/10/17 08:00 Resp 20 07/10/17 08:00 BP 116/68 07/10/17 08:00 Pulse Ox 95 07/10/17 08:00 Intake & Output 07/09/17 07/10/17 07/10/17 18:59 06:59 18:59 Intake Total 600 1600 180 Output Total 500 Balance 600 1100 180 Weight 99.9 kg Intake: IV 1600 Sodium Chloride 0.9% 1, 1600 000 ml @ 100 mls/hr IV . Q10H [facility] Rx#:[id number] Oral 600 180 Output: Urine 250 Emesis 250 Other: Voiding Method Urinal Urinal # Voids 1 1 1 # Bowel Movements 0 - Exam No acute distress, oriented 3. HEENT examination is grossly unremarkable. Mucous membranes are moist. No oral lesions. Neck supple. Full range of motion. No adenopathy thyromegaly or neck vein distention. Cardiovascular examination reveals regular rhythm rate. S1-S2 normal. No S3 or S4. No discernible murmur noted. Lungs reveal diffuse bilateral rales bilateral bases. Breath sounds are more significant in the right lower lobe. No wheezes. Abdomen soft bowel sounds are heard. No masses or tenderness. Extremities are intact. No cyanosis clubbing or edema. Skin is without rash or lesion. Neurologic examination is brief but nonfocal. - Labs CBC & Chem 7: 07/10/17 05:53 07/10/17 05:53 Labs: Abnormal Lab Results - Last 24 Hours (Table) 07/08/17 07/09/17 07/09/17 Range/Units 08:40 16:44 20:29 RBC (4.30-5.90) m/uL Hgb (13.0-17.5) gm/dL Hct (39.0-53.0) % Plt Count (150-450) k/uL Lymphocytes # (1.0-4.8) k/uL BUN (9-20) mg/dL Creatinine (0.66-1.25) mg/dL POC Glucose (mg/dL) 124 H 160 H (75-99) mg/dL Hemoglobin A1c 7.4 H (4.0-6.0) % Calcium (8.4-10.2) mg/dL Total Protein (6.3-8.2) g/dL Albumin (3.5-5.0) g/dL 07/10/17 07/10/17 07/10/17 Range/Units 05:53 05:53 11:17 RBC 3.58 L (4.30-5.90) m/uL Hgb 11.2 L (13.0-17.5) gm/dL Hct 34.7 L (39.0-53.0) % Plt Count 98 L (150-450) k/uL Lymphocytes # 0.7 L (1.0-4.8) k/uL BUN 8 L (9-20) mg/dL Creatinine 0.48 L (0.66-1.25) mg/dL POC Glucose (mg/dL) 112 H (75-99) mg/dL Hemoglobin A1c (4.0-6.0) % Calcium 8.3 L (8.4-10.2) mg/dL Total Protein 5.1 L (6.3-8.2) g/dL Albumin 2.5 L (3.5-5.0) g/dL Microbiology - Last 24 Hours (Table) 07/08/17 08:40 Blood Culture - Preliminary Blood No Growth after 48 hours 07/08/17 08:40 Gram Stain - Final Sputum Sputum Culture - Final Clare albicans 07/08/17 11:10 Urine Culture - Preliminary Urine,Voided Group D Enterococcus Assessment and Plan Plan: Assessment: #1. Hypoxic respiratory failure secondary to aspiration pneumonia #2. Dyspnea, persistent cough and weakness, noted to the above #3. 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 #4. History of #5. History DVT/PE, completed a course of Eliquis #6. Hypertension #7. Hyperlipidemia Plan: Stop the Rocephin and Zithromax, start Zosyn for aspiration pneumonia. Continue all other medical treatments. Consult Dr. Lynn for placement of PEG tube. DuoNeb, GI/DVT prophylaxis I performed a history & physical examination of the patient and discussed their management with my nurse practitioner, Adriana Tena. I reviewed the nurse practitioner's note and agree with the documented findings and plan of care. Lung sounds are positive for coarse inspiratory crackles at bilateral bases. The findings and the impression was discussed with the patient. I attest to the documentation by the nurse practitioner. Time with Patient: Less than 30
[2017-07-10] MEDS ORDERED: MORPHINE SULFATE 5 MG/ML SYRINGE IVP PRN (13:23)
--- NOTE | 2017-07-10 15:10 | P.GSCN ---
History of Present Illness Consult date: 07/10/17 Reason for Consult: Aspiration pneumonia History of present illness: Patient hospitalized with pneumonia and sepsis. He has a history of previous brainstem stroke. The patient has a history of prior PEG tube placement and this was removed about 1 year ago. He had a swallow evaluation performed today which showed aspiration and for that reason we are consulted for PEG tube placement. The patient admits to some difficulty swallowing at times. No abdominal pain. Previous midline laparotomy related to small bowel obstruction. Review of Systems The patient denies any acute changes in vision or hearing, no dysphagia or odynophagia, no chest pain, no dysuria or hematuria, no headache, no runny nose , no rectal bleeding or melena, no unexplained weight loss Past Medical History Past Medical History: CVA/TIA, Diabetes Mellitus, Deep Vein Thrombosis (DVT), GERD/Reflux, Hyperlipidemia, Hypertension, Musculoskeletal Disorder, Pulmonary Embolus (PE), Syncope Additional Past Medical History / Comment(s): states "unable to pass barium swallow but able to swallow some foods and fluids." LUMBAR STENOSIS. HX DVT LT CALF, THEN PE. HX IBS. COLON POLYPS, hypertensive cardio vascular disease with left ventricular hypertrophy. cataracts. rt side of body temperature intolerance History of Any Multi-Drug Resistant Organisms: MRSA Year Discovered:: (per patient: culture done at [facility]) MDRO Source:: Sputum Past Surgical History: Appendectomy, Cholecystectomy Additional Past Surgical History / Comment(s): EXPLORATORY LAPAROTOMY, FUSION L4 -L5, colonoscopy, PEG tube history - removed in october Past Anesthesia/Blood Transfusion Reactions: No Reported Reaction Past Psychological History: Anxiety Additional Psychological History / Comment(s): Pt lives with friends. He rents a room. He is independent. Smoking Status: Never smoker Past Alcohol Use History: None Reported Additional Past Alcohol Use History / Comment(s): Patient has been a lifelong nonsmoker. He drinks alcohol rarely. 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 Past Drug Use History: None Reported - Past Family History Father History Unknown: Yes Mother Family Medical History: Cancer, Deep Vein Thrombosis (DVT) Medications and Allergies Home Medications Medication Instructions Recorded Confirmed Type Insulin Glargine [Lantus] 20 unit SQ HS 07/09/16 07/08/17 History Gabapentin 600 mg PO TID 10/13/16 07/08/17 History Metoprolol Tartrate [Lopressor] 25 mg PO BID 10/13/16 07/08/17 History Simvastatin [Zocor] 40 mg PO HS 10/13/16 07/08/17 History Amitriptyline HCl [Elavil] 25 mg PO BID 12/07/16 07/08/17 History Escitalopram [Lexapro] 20 mg PO DAILY 06/13/17 07/08/17 History Insulin Aspart [NovoLOG Flexpen] 30 units SQ TID 06/13/17 07/08/17 History Omeprazole 40 mg PO DAILY 06/13/17 07/08/17 History Promethazine 6.25MG/5Ml [Phenergan 6.25 mg PO Q12H 06/13/17 07/08/17 History Syrup] HYDROcodone/APAP 5-325MG [[place] 1 tab PO Q4HR PRN 07/08/17 07/08/17 History 5-325] Allergies Allergy/AdvReac Type Severity Reaction Status Date / Time vancomycin Allergy kidneys Verified 07/08/17 08:27 shutdown venom-honey bee Allergy Anaphylaxis Verified 07/08/17 08:27 [bee venom (honey bee)] Surgical - Exam Vital Signs Temp Pulse Resp BP Pulse Ox 102.4 F H 96 20 92/55 86 L 07/08/17 07:56 07/08/17 07:56 07/08/17 07:56 07/08/17 07:56 07/08/17 07:56 Physical exam: General: Well-developed, well-nourished HEENT: Normocephalic, sclerae nonicteric Abdomen: Nontender, nondistended, prior scars noted Extremities: No edema Neuro: Alert and oriented Results - Labs 07/10/17 05:53 07/10/17 05:53 Abnormal Lab Results - Last 24 Hours (Table) 07/08/17 07/09/17 07/09/17 Range/Units 08:40 16:44 20:29 RBC (4.30-5.90) m/uL Hgb (13.0-17.5) gm/dL Hct (39.0-53.0) % Plt Count (150-450) k/uL Lymphocytes # (1.0-4.8) k/uL BUN (9-20) mg/dL Creatinine (0.66-1.25) mg/dL POC Glucose (mg/dL) 124 H 160 H (75-99) mg/dL Hemoglobin A1c 7.4 H (4.0-6.0) % Calcium (8.4-10.2) mg/dL Total Protein (6.3-8.2) g/dL Albumin (3.5-5.0) g/dL 07/10/17 07/10/17 07/10/17 Range/Units 05:53 05:53 11:17 RBC 3.58 L (4.30-5.90) m/uL Hgb 11.2 L (13.0-17.5) gm/dL Hct 34.7 L (39.0-53.0) % Plt Count 98 L (150-450) k/uL Lymphocytes # 0.7 L (1.0-4.8) k/uL BUN 8 L (9-20) mg/dL Creatinine 0.48 L (0.66-1.25) mg/dL POC Glucose (mg/dL) 112 H (75-99) mg/dL Hemoglobin A1c (4.0-6.0) % Calcium 8.3 L (8.4-10.2) mg/dL Total Protein 5.1 L (6.3-8.2) g/dL Albumin 2.5 L (3.5-5.0) g/dL Microbiology - Last 24 Hours (Table) 07/08/17 11:10 Urine Culture - Final Urine,Voided Enterococcus faecalis 07/08/17 08:40 Blood Culture - Preliminary Blood No Growth after 48 hours 07/08/17 08:40 Gram Stain - Final Sputum Sputum Culture - Final Clare albicans Diabetes panel 07/08/17 07/10/17 Range/Units 08:40 05:53 Sodium 141 (137-145) mmol/L Potassium 3.8 (3.5-5.1) mmol/L Chloride 106 (98-107) mmol/L Carbon Dioxide 28 (22-30) mmol/L BUN 8 L (9-20) mg/dL Creatinine 0.48 L (0.66-1.25) mg/dL Glucose 75 (74-99) mg/dL Hemoglobin A1c 7.4 H (4.0-6.0) % Calcium 8.3 L (8.4-10.2) mg/dL AST 22 (17-59) U/L ALT 28 (21-72) U/L Alkaline Phosphatase 67 (38-126) U/L Total Protein 5.1 L (6.3-8.2) g/dL Albumin 2.5 L (3.5-5.0) g/dL Calcium panel 07/10/17 Range/Units 05:53 Calcium 8.3 L (8.4-10.2) mg/dL Phosphorus 2.6 (2.5-4.5) mg/dL Albumin 2.5 L (3.5-5.0) g/dL Pituitary panel 07/10/17 Range/Units 05:53 Sodium 141 (137-145) mmol/L Potassium 3.8 (3.5-5.1) mmol/L Chloride 106 (98-107) mmol/L Carbon Dioxide 28 (22-30) mmol/L BUN 8 L (9-20) mg/dL Creatinine 0.48 L (0.66-1.25) mg/dL Glucose 75 (74-99) mg/dL Calcium 8.3 L (8.4-10.2) mg/dL Adrenal panel 07/10/17 Range/Units 05:53 Sodium 141 (137-145) mmol/L Potassium 3.8 (3.5-5.1) mmol/L Chloride 106 (98-107) mmol/L Carbon Dioxide 28 (22-30) mmol/L BUN 8 L (9-20) mg/dL Creatinine 0.48 L (0.66-1.25) mg/dL Glucose 75 (74-99) mg/dL Calcium 8.3 L (8.4-10.2) mg/dL Total Bilirubin 0.4 (0.2-1.3) mg/dL AST 22 (17-59) U/L ALT 28 (21-72) U/L Alkaline Phosphatase 67 (38-126) U/L Total Protein 5.1 L (6.3-8.2) g/dL Albumin 2.5 L (3.5-5.0) g/dL Assessment and Plan (1) Aspiration pneumonia Narrative/Plan: Options discussed in detail with the patient. We'll proceed with EGD and PEG tube placement. Risks of bleeding, infection, bowel injury were discussed. He understands and wishes to proceed. Current Visit: No Status: Acute Code(s): J69.0 - PNEUMONITIS DUE TO INHALATION OF FOOD AND VOMIT SNOMED Code(s): 179357377
[2017-07-10 16:57] LABS: Glucose,Whole Blood 59 mg/dL (75-99)
[2017-07-10 17:08] LABS: Glucose,Whole Blood 83 mg/dL (75-99)
[2017-07-10] MEDS ORDERED: LIDOCAINE 1% INJ 10MG/ML (20 ML MDV) ONE (17:31)
[2017-07-10] MEDS ORDERED: KETAMINE 10 MG/ML 20 ML VIAL ONE (17:31)
[2017-07-10] MEDS ORDERED: PROPOFOL 10 MG/ML 20 ML VIAL IV ONE (17:31)
[2017-07-10] MEDS ORDERED: IV FLUID CONTINUATION 600 ML IV ONE (17:38)
--- NOTE | 2017-07-10 18:45 | P.PCN ---
Date of Procedure: 07/10/17 Procedure(s) Performed: PREOPERATIVE DIAGNOSIS: Ration ammonia POSTOPERATIVE DIAGNOSIS: Same PROCEDURE: EGD with PEG tube placement SURGEON: Blaine EBL: Minimal ANESTHESIA: Sedation COMPLICATIONS: None OPERATIVE PROCEDURE: The patient was placed in the supine position on the endoscopy table. The patient was sedated per anesthesia that time. Shortly after sedation the patient had an episode of emesis. This was quickly aspirated using the younker suction. The patient had no definite clinical evidence of tracheal penetration at this point. The Olympus gastroscope was inserted into the oropharynx and passed under direct visualization to the stomach. There was some solid particulate food like material in the stomach along with some bilious fluid that was quickly evacuated. No further emesis was encountered. The scope was advanced to the region of the duodenum. No obstruction was seen. The pylorus was widely patent. The stomach was carefully inspected. The stomach was fully insufflated with air. The abdominal wall was inspected. The light was seen shining through the abdominal wall in the left upper quadrant at the prior tube site. This site was chosen for PEG tube placement. The area was prepped in the usual sterile fashion. This area was then localized with lidocaine. A small vertical incision was made using the scalpel. The Seldinger needle was advanced into the lumen of the stomach the wire was advanced. The wire was grasped with an endoscopic snare. The wire was pulled through the oropharynx. The catheter was then threaded over the guidewire and the guidewire and catheter were pulled anteriorly until the hub of the PEG tube catheter was seated against the anterior wall the stomach. The circular bolster was applied and tightened down. The endoscope was then readvanced into the stomach. There was no evidence of any bleeding and there was appropriate tightness on the bolster. The catheter was cut appropriately. The dual port feeding adapter was applied. DISPOSITION: Stable to recovery room
[2017-07-10] MEDS: ATORVASTATIN 20 MG TAB PO SCH (19:59)
[2017-07-10] MEDS: HYDROmorphone 1 MG/ML 1 ML SYRINGE IVP PRN (20:07)
[2017-07-10 20:50] LABS: Glucose,Whole Blood 80 mg/dL (75-99)
[2017-07-10] MEDS: INSULIN DETEMIR 100 UNIT/ML 10 ML VIAL SQ SCH (21:12)
[2017-07-11 00:09] LABS: Glucose,Whole Blood 72 mg/dL (75-99)
[2017-07-11 00:28] LABS: Glucose,Whole Blood 86 mg/dL (75-99)
[2017-07-11] MEDS: PIPERACILLIN-TAZOBACTAM 3.375 GM in DEXTROSE/WATER 1 50ML.BAG IVPB SCH ×3 (02:49→20:41)
[2017-07-11] MEDS: HYDROmorphone 1 MG/ML 1 ML SYRINGE IVP PRN ×3 (02:51→21:00)
[2017-07-11 06:32] LABS: Glucose,Whole Blood 92 mg/dL (75-99)
[2017-07-11] MEDS: INSULIN ASPART 100 UNIT/ML 1 ML 10 ML VIAL SQ SCH ×4 (06:32→23:34)
[2017-07-11] MEDS ORDERED: PANTOPRAZOLE SODIUM 40 MG GRANULE PKT PO SCH (11:30)
[2017-07-11 11:47] LABS: Glucose,Whole Blood 100 mg/dL (75-99)
--- NOTE | 2017-07-11 11:54 | P.PN ---
<StoneyShanikaPerla M - Last Filed: 07/11/17 11:40> Subjective Progress Note Date: 07/11/17 52-year-old male seen and examined resting in bed postop July 10 EGD with PEG tube placement after patient failed a swallow eval. Patient has history of a prior brain stem stroke. Prior PEG tube placement which was removed one year prior. Patient had a repeat swallow eval which showed aspiration. Patient continues to have difficulty in swallowing. Given the above clinical presentation recommendations were to proceed with a PEG tube placement for nutritional support Objective - Vital Signs Vital signs: Vital Signs Temp 97.6 F 07/11/17 09:14 Pulse 91 07/11/17 09:14 Resp 20 07/11/17 09:14 BP 138/75 07/11/17 09:14 Pulse Ox 98 07/11/17 09:14 Intake & Output 07/10/17 07/11/17 07/11/17 18:59 06:59 18:59 Intake Total 860 1700 Balance 860 1700 Weight 99.9 kg Intake: IV 300 1700 Piperacillin-Tazobactam 3 100 .375 gm In Dextrose/Water 1 50ml.bag @ 12.5 mls/hr IVPB Q8H [facility] Rx#: [id number] Sodium Chloride 0.9% 1, 1600 000 ml @ 100 mls/hr IV . Q10H [facility] Rx#:[id number] Oral 360 Lipid 200 Sodium Chloride 0.9% 1, 200 000 ml @ 100 mls/hr IV . Q10H [facility] Rx#:[id number] Other: Voiding Method Urinal Urinal Urinal # Voids 1 - Exam Physical exam 52-year-old male sitting up in bed pleasant cooperative oriented 3 voice hoarseness Lungs bilateral fine crackles at the bases no wheezing adequate air movement no cough noted Heart S1-S2 audible regular Abdomen PEG tube in place dressing around site dry nondistended nontender bowel tones present urinating no difficulty no stool no nausea no vomiting Extremities no edema noted - Labs CBC & Chem 7: 07/10/17 05:53 07/10/17 05:53 Labs: Abnormal Lab Results - Last 24 Hours (Table) 07/10/17 07/11/17 Range/Units 16:43 00:07 POC Glucose (mg/dL) 59 L 72 L (75-99) mg/dL Microbiology - Last 24 Hours (Table) 07/08/17 08:40 Blood Culture - Preliminary Blood No Growth after 72 hours 07/08/17 11:10 Urine Culture - Final Urine,Voided Enterococcus faecalis 07/08/17 08:40 Gram Stain - Final Sputum Sputum Culture - Final Clare albicans Assessment and Plan Assessment: Impression Acute community-acquired pneumonia likely due to aspiration A history of brainstem stroke 1 year prior with residual right-sided facial weakness impaired swallowing prior placed PEG tube with subsequent removal History of dysphasia prior brainstem stroke Recent swallow eval suspected aspiration Urine culture present on admission positive for group D enterococcus A prior history of DVT and PE completed a course of elquis Plan Initiate nutritional support utilizing PEG tube per dietitian's recommendations Aspiration precautions Defer to admitting service and other consultants for management of medical issues Dr. Matos rounding on behalf of Dr. Valladares The above impression and plan of care have been discussed and directed by signing physician. Perla Lua nurse practitioner acting as scribe for signing physician. <Ally Matos N - Last Filed: 07/11/17 19:40> Objective - Vital Signs Vital signs: Vital Signs Temp 97.1 F L 07/11/17 16:00 Pulse 90 07/11/17 16:00 Resp 16 07/11/17 16:00 BP 128/75 07/11/17 16:00 Pulse Ox 95 07/11/17 16:00 Intake & Output 07/11/17 07/11/17 07/12/17 06:59 18:59 06:59 Intake Total 1700 900 Output Total 900 Balance 1700 0 Weight 99.9 kg Intake: IV 1700 850 Piperacillin-Tazobactam 3 100 50 .375 gm In Dextrose/Water 1 50ml.bag @ 12.5 mls/hr IVPB Q8H [facility] Rx#: [id number] Sodium Chloride 0.9% 1, 1600 800 000 ml @ 100 mls/hr IV . Q10H [facility] Rx#:[id number] Tube Feeding 50 Output: Urine 900 Other: Voiding Method Urinal Urinal - Exam GENERAL: Well developed and in no acute distress. Pleasant. HEENT: No sclera icterus. Extraocular movements grossly intact. Moist buccal mucosa. Head is atraumatic, normocephalic. Hears conversational speech. No nasal drainage. NECK: Supple without lymphadenopathy. No JV distention. CHEST: Non-labored respirations and equal bilateral excursions. CARDIOVASCULAR: Regular rate and rhythm. Palpable 2+ radial pulses. ABDOMEN: Soft, nontender. Nondistended. Feeding tube currently at 10 mL/h. No peritonitis. MUSCULOSKELETAL: No clubbing, cyanosis or edema. NEUROLOGIC: No focal or lateralizing signs. PSYCH: Appropriate affect. Alert and oriented to person, place and time. SKIN: Good skin turgor. Well perfused. - Labs CBC & Chem 7: 07/10/17 05:53 07/10/17 05:53 Labs: Abnormal Lab Results - Last 24 Hours (Table) 07/11/17 07/11/17 Range/Units 00:07 11:37 POC Glucose (mg/dL) 72 L 100 H (75-99) mg/dL Microbiology - Last 24 Hours (Table) 07/08/17 08:40 Blood Culture - Preliminary Blood No Growth after 72 hours Assessment and Plan (1) Dysphagia Current Visit: Yes Status: Acute Code(s): R13.10 - DYSPHAGIA, UNSPECIFIED SNOMED Code(s): 28241186 (2) Inadequate oral nutritional intake Current Visit: Yes Status: Acute Code(s): R63.8 - OTHER SYMPTOMS AND SIGNS CONCERNING FOOD AND FLUID INTAKE SNOMED Code(s): 114891295 (3) Cerebrovascular accident Current Visit: No Status: Acute Code(s): I63.9 - CEREBRAL INFARCTION, UNSPECIFIED SNOMED Code(s): 079130682 Plan: 1. Management of tube feeds per dietitian. 2. Patient may be discharged once tolerating tube feeds at goal.
[2017-07-11] MEDS: PANTOPRAZOLE 40 MG/10 ML VIAL IVP SCH (12:17)
[2017-07-11] MEDS: PROMETHAZINE 6.25MG/5ML 147.5 MG/118 ML BOTTLE PO SCH ×2 (13:33→20:22)
[2017-07-11] MEDS: GABAPENTIN 300 MG CAP PO SCH ×3 (13:33→20:21)
[2017-07-11] MEDS: AMITRIPTYLINE HCL 25 MG TAB PO SCH ×2 (13:33→20:21)
--- NOTE | 2017-07-11 14:21 | P.PN ---
Subjective Progress Note Date: 07/11/17 Principal diagnosis: SOB S/P PEG tube placement. Breathing feels better. Objective - Vital Signs Vital signs: Vital Signs Temp 97.2 F L 07/11/17 12:00 Pulse 96 07/11/17 12:00 Resp 16 07/11/17 12:00 BP 147/77 07/11/17 12:00 Pulse Ox 98 07/11/17 12:00 Intake & Output 07/10/17 07/11/17 07/11/17 18:59 06:59 18:59 Intake Total 860 1700 Output Total 400 Balance 860 1700 -400 Weight 99.9 kg Intake: IV 300 1700 Piperacillin-Tazobactam 3 100 .375 gm In Dextrose/Water 1 50ml.bag @ 12.5 mls/hr IVPB Q8H [facility] Rx#: [id number] Sodium Chloride 0.9% 1, 1600 000 ml @ 100 mls/hr IV . Q10H [facility] Rx#:[id number] Oral 360 Lipid 200 Sodium Chloride 0.9% 1, 200 000 ml @ 100 mls/hr IV . Q10H [facility] Rx#:[id number] Output: Urine 400 Other: Voiding Method Urinal Urinal Urinal # Voids 1 - Exam Constitutional: No acute distress, conversant, pleasant Eyes:Anicteric sclerae, moist conjunctiva, no lid-lag, PERRLA, ENMT: Oropharynx clear, no erythema, exudates Neck: Supple, FROM, no masses, or JVD, No carotid bruits, No thyromegaly Lungs: Diminished bs bilaterally, bilateral rhonchi and wheezes, Clear to percussion, Normal respiratory effort, no accessory muscle use Cardiovascular: Heart regular in rate and rhythm, No murmurs, gallops, or rubs, No peripheral edema Abdominal: PEG tube in place, soft, Nontender, no guarding, rebound or rigidity , Normoactive bowel sounds, No hepatomegaly, No splenomegaly, No palpable mass Skin: Normal temperature, tone, texture, turgor, no induration, No subcutaneous nodules, No rash, lesions, No ulcers Extremities: No digital cyanosis, No clubbing, Pedal pulses intact and symmetrical, Radial pulses intact and symmetrical, No calf tenderness Psychiatric: Alert and oriented to person, place and time, appropriate affect, intact judgement Neuro: Muscles Strength 5/5 in all 4 extremities, Sensation to light touch grossly present throughout, Cranial nerves II-XII grossly intact, no focal sensory deficits - Labs CBC & Chem 7: 07/10/17 05:53 07/10/17 05:53 Labs: Abnormal Lab Results - Last 24 Hours (Table) 07/10/17 07/11/17 07/11/17 Range/Units 16:43 00:07 11:37 POC Glucose (mg/dL) 59 L 72 L 100 H (75-99) mg/dL Microbiology - Last 24 Hours (Table) 07/08/17 08:40 Blood Culture - Preliminary Blood No Growth after 72 hours 07/08/17 11:10 Urine Culture - Final Urine,Voided Enterococcus faecalis 07/08/17 08:40 Gram Stain - Final Sputum Sputum Culture - Final Clare albicans Assessment and Plan Plan: (1) Acute community-acquired pneumonia likely aspiration pneumonia Continue zosyn due to likely aspiration. No history of COPD so no indication for steroids. Nebs every 6 hours when necessary (2) History of dysphagia/Cerebrovascular accident S/P PEG on 07/10 Start tube feeds General surgery on board (3) Diabetes type 2 acck AC and hs Decrease insulin detemir dose to 10 units daily as he will be NPO SSI with blood sugar checks every 6hours. (4) Hyperlipidemia On zocor (5) DVT prophylaxis: SCDs
--- NOTE | 2017-07-11 16:09 | P.PN ---
<Adriana Tena M - Last Filed: 07/11/17 16:03> Subjective Progress Note Date: 07/11/17 Principal diagnosis: aspiration pneumonia This is a 52-year-old male seen yesterday in consultation. He came into the emergency department with complaints of cough and shortness of breath. It been going on for a couple weeks but got worse over the last couple days prior to admission. In addition the patient has some coughing up of yellow-green phlegm. Not coughing up any blood. The patient did have a fever. The patient is a lifelong nonsmoker. Chest x-ray revealed bilateral pneumonia. Today's chest x-rays a bit worse. Clinically he is a bit better. The patient came in with a normal lactic acid. Was a little hypotensive initially. Did present with sepsis syndrome picture. Responded nicely to fluids. Did not need to come to the ICU. Resting comfortably on the sixth floor. On 07/10/2017 patient is seen in follow-up on selective care unit.Complaining of excessive coughing, severe coughing spells. Lung sounds are positive for coarse inspiratory crackles over bilateral bases. 2 L per nasal cannula with O2 sat at 95-97%.Had been afebrile since admission. Today's chest x-ray has been reviewed by Dr. Barron shows basilar opacities with persistent right upper lobe patchy opacity. Previously seen Dr. Barron in the office on , his chronic cough was felt to be related to his swallowing and dysphagia causing irritation of the upper airways. Status post left sided brainstem stroke right-sided weakness involving the face, upper and lower extremities and difficulties with speech and swallow. The patient apparently had a PEG tube inserted for chronic dysphagia and ultimately the PEG tube was removed as the patient had improvement in his swallowing process. He was seen by Dr. Bautista, for symptoms of dysphagia and the patient was also known to have chronic problems with reflux esophagitis. He was taken to the operating room and the patient underwent a Davis fundoplication on 12/21/2016. Postoperative esophagram showed no evidence of any leak or significant obstruction post surgery. The patient had continued to have dysphagia and further evaluation was done by an EGD that was done on 05/11/2017 and the patient was found to have some is a intermediate narrowing proximally and EGD and balloon dilatation of the esophagus was done. The most recent swallow evaluation that was done on 06/04/2017 and showed spasm/stenosis at the proximal esophagus without evidence of any aspiration or penetration. The patient was in the hospital on July 2016 for symptoms of syncope. At that time CT angios the chest was done that showed no evidence of any lung disease. There was a questionable filling defect in the right lower lobe pulmonary artery branch. Dopplers of the lower extremities were negative and the patient was committed to anticoagulation with Eliquis for a total of 6 months and then discontinued. A repeat CAT scan of the chest was done on December 2016 that showed no residual clot in the right lower pulmonary artery branch. Neurology has been reviewed and shows urine culture positive for group D enterococcus, sputum culture positive for Clare, blood culture shows no growth at the 48 hour jessica. Based on his history and after speaking to Clare speech pathologist, aspiration is strongly suspected. On 07/11/2017 patient seen again, he is status post PEG tube insertion on 2017. Tolerated the procedure well. Afebrile, hemodynamically stable. Lung sounds reveal crackles at bilateral bases. The cough seems to have subsided some. Microbiology has been reviewed, urine culture shows Enterococcus faecalis sputum cultures positive for Clare albicans. Patient continues on Zosyn. Overall patient denies any worsening dyspnea. Remains nothing by mouth except for ice chips. He remains on 12 hours per nasal cannula with O2 sat at 98%. Objective - Vital Signs Vital signs: Vital Signs Temp 97.2 F L 07/11/17 12:00 Pulse 96 07/11/17 12:00 Resp 16 07/11/17 12:00 BP 147/77 07/11/17 12:00 Pulse Ox 98 07/11/17 12:00 Intake & Output 07/10/17 07/11/17 07/11/17 18:59 06:59 18:59 Intake Total 860 1700 10 Output Total 400 Balance 860 1700 -390 Weight 99.9 kg Intake: IV 300 1700 Piperacillin-Tazobactam 3 100 .375 gm In Dextrose/Water 1 50ml.bag @ 12.5 mls/hr IVPB Q8H [facility] Rx#: [id number] Sodium Chloride 0.9% 1, 1600 000 ml @ 100 mls/hr IV . Q10H [facility] Rx#:[id number] Oral 360 Tube Feeding 10 Lipid 200 Sodium Chloride 0.9% 1, 200 000 ml @ 100 mls/hr IV . Q10H [facility] Rx#:[id number] Output: Urine 400 Other: Voiding Method Urinal Urinal Urinal # Voids 1 - Exam No acute distress, oriented 3. HEENT examination is grossly unremarkable. Mucous membranes are moist. No oral lesions. Neck supple. Full range of motion. No adenopathy thyromegaly or neck vein distention. Cardiovascular examination reveals regular rhythm rate. S1-S2 normal. No S3 or S4. No discernible murmur noted. Lungs reveal diffuse bilateral rales bilateral bases. Breath sounds are more significant in the right lower lobe. No wheezes. Abdomen soft bowel sounds are heard. No masses or tenderness. PEG tube is present for left upper quadrant, with tube feedings infusing continuously. Extremities are intact. No cyanosis clubbing or edema. Skin is without rash or lesion. Neurologic examination is brief but nonfocal. - Labs CBC & Chem 7: 07/10/17 05:53 07/10/17 05:53 Labs: Abnormal Lab Results - Last 24 Hours (Table) 07/10/17 07/11/17 07/11/17 Range/Units 16:43 00:07 11:37 POC Glucose (mg/dL) 59 L 72 L 100 H (75-99) mg/dL Microbiology - Last 24 Hours (Table) 07/08/17 08:40 Blood Culture - Preliminary Blood No Growth after 72 hours 07/08/17 11:10 Urine Culture - Final Urine,Voided Enterococcus faecalis Assessment and Plan Plan: Assessment: #1. Hypoxic respiratory failure secondary to aspiration pneumonia #2. Dyspnea, persistent cough and weakness, noted to the above #3. 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 #4. History of #5. History DVT/PE, completed a course of Eliquis #6. Hypertension #7. Hyperlipidemia Plan: Continue Zosyn for aspiration pneumonia. A culture was also positive for Enterococcus faecalis with sensitivity to penicillin. He was inserted and generally second 2017, tube feedings have been initiated. Continue all other medical treatments. Arrangement will have to be made for home feeding pump, patient could potentially discharge home tomorrow, remains stable from pulmonary standpoint. I performed a history & physical examination of the patient and discussed their management with my nurse practitioner, Adriana Tena. I reviewed the nurse practitioner's note and agree with the documented findings and plan of care. Lung sounds are positive for coarse inspiratory crackles at bilateral bases. The findings and the impression was discussed with the patient. I attest to the documentation by the nurse practitioner. Time with Patient: Less than 30 <Ingrid Barron - Last Filed: 07/11/17 16:13> Objective - Vital Signs Vital signs: Vital Signs Temp 97.1 F L 07/11/17 16:00 Pulse 90 07/11/17 16:00 Resp 16 07/11/17 16:00 BP 128/75 07/11/17 16:00 Pulse Ox 95 07/11/17 16:00 Intake & Output 07/10/17 07/11/17 07/11/17 18:59 06:59 18:59 Intake Total 860 1700 860 Output Total 900 Balance 860 1700 -40 Weight 99.9 kg Intake: IV 300 1700 850 Piperacillin-Tazobactam 3 100 50 .375 gm In Dextrose/Water 1 50ml.bag @ 12.5 mls/hr IVPB Q8H [facility] Rx#: [id number] Sodium Chloride 0.9% 1, 1600 800 000 ml @ 100 mls/hr IV . Q10H [facility] Rx#:[id number] Oral 360 Tube Feeding 10 Lipid 200 Sodium Chloride 0.9% 1, 200 000 ml @ 100 mls/hr IV . Q10H [facility] Rx#:[id number] Output: Urine 900 Other: Voiding Method Urinal Urinal Urinal # Voids 1 - Labs CBC & Chem 7: 07/10/17 05:53 07/10/17 05:53 Labs: Abnormal Lab Results - Last 24 Hours (Table) 07/10/17 07/11/17 07/11/17 Range/Units 16:43 00:07 11:37 POC Glucose (mg/dL) 59 L 72 L 100 H (75-99) mg/dL Microbiology - Last 24 Hours (Table) 07/08/17 08:40 Blood Culture - Preliminary Blood No Growth after 72 hours 07/08/17 11:10 Urine Culture - Final Urine,Voided Enterococcus faecalis Assessment and Plan Plan: The patient was seen in the joint evaluation along with the nurse practitioner. The patient has an acute hypoxic respiratory failure due to a right lower lobe aspiration pneumonia which is improving. The patient underwent a PEG tube insertion. Arrangements are being made for outpatient enteral feeding for nutritional support. He'll be kept nothing by mouth for now. Follow-up chest x -ray in the morning. We'll continue to follow. I attest to the above- mentioned formation.
[2017-07-11] MEDS: SODIUM CHLORIDE 0.9% 1,000 ML IV SCH ×2 (16:11→23:35)
[2017-07-11 16:56] LABS: Glucose,Whole Blood 97 mg/dL (75-99)
[2017-07-11] MEDS: ATORVASTATIN 20 MG TAB PO SCH (20:22)
[2017-07-11 20:33] LABS: Glucose,Whole Blood 85 mg/dL (75-99)
[2017-07-11] MEDS: INSULIN DETEMIR 100 UNIT/ML 10 ML VIAL SQ SCH (23:36)
[2017-07-12 00:04] LABS: Glucose,Whole Blood 93 mg/dL (75-99)
[2017-07-12] MEDS: PIPERACILLIN-TAZOBACTAM 3.375 GM in DEXTROSE/WATER 1 50ML.BAG IVPB SCH ×3 (04:32→21:07)
[2017-07-12] MEDS: HYDROmorphone 1 MG/ML 1 ML SYRINGE IVP PRN ×2 (04:36→22:13)
[2017-07-12] MEDS: SODIUM CHLORIDE 0.9% 1,000 ML IV SCH ×3 (04:59→23:53)
[2017-07-12 06:37] LABS: Basophils % (A) 0 %; Eosinophils # (A) 0.1 k/uL (0-0.7); Eosinophils % (A) 2 %; HCT 34.9 % (39.0-53.0); Lymphocytes % (A) 21 %; MCH 30.2 pg (25.0-35.0); MCHC 31.6 g/dL (31.0-37.0); MCV 95.3 fL (80.0-100.0); Mean Platelet Volume 7.1; Monocytes # (A) 0.3 k/uL (0-1.0); Monocytes % (A) 6 %; Neutrophils # (A) 3.5 k/uL (1.3-7.7); Neutrophils % (A) 69 %; RBC 3.66 m/uL (4.30-5.90); RDW 12.9 % (11.5-15.5)
[2017-07-12 06:38] LABS: Glucose,Whole Blood 71 mg/dL (75-99)
[2017-07-12 06:43] LABS: Platelet Count 177 k/uL (150-450)
[2017-07-12] MEDS: INSULIN ASPART 100 UNIT/ML 1 ML 10 ML VIAL SQ SCH ×4 (06:47→21:59)
[2017-07-12 06:50] LABS: ALT 30 U/L (21-72); AST 15 U/L (17-59); Albumin 2.7 g/dL (3.5-5.0); Alkaline Phosphatase 69 U/L (38-126); Anion Gap 7 mmol/L; Blood Urea Nitrogen 2 mg/dL (9-20); Calcium 8.7 mg/dL (8.4-10.2); Carbon Dioxide 37 mmol/L (22-30); Chloride 97 mmol/L (98-107); Glucose 79 mg/dL (74-99); Magnesium 1.5 mg/dL (1.6-2.3); Potassium 4.2 mmol/L (3.5-5.1); Sodium 141 mmol/L (137-145); Total Bilirubin 0.5 mg/dL (0.2-1.3); Total Protein 5.2 g/dL (6.3-8.2)
[2017-07-12] MEDS: PROMETHAZINE 6.25MG/5ML 147.5 MG/118 ML BOTTLE PO SCH ×2 (09:37→21:11)
[2017-07-12] MEDS: AMITRIPTYLINE HCL 25 MG TAB PO SCH ×2 (09:37→21:10)
[2017-07-12] MEDS: PANTOPRAZOLE 40 MG/10 ML VIAL IVP SCH (09:37)
[2017-07-12] MEDS: GABAPENTIN 300 MG CAP PO SCH ×3 (09:37→21:21)
[2017-07-12] MEDS: HYDROcodone/APAP 5-325MG 1 EACH TAB PO PRN ×2 (09:37→17:25)
[2017-07-12 11:41] LABS: Glucose,Whole Blood 68 mg/dL (75-99)
[2017-07-12] MEDS ORDERED: DEXTROSE 10 % IN WATER 250 ML IV STA (12:03)
[2017-07-12] MEDS: MAGNESIUM SULFATE-D5W PMX 1 GM in DEXTROSE/WATER 1 100ML.BAG IVPB SCH ×2 (12:05→13:17)
--- NOTE | 2017-07-12 12:40 | P.PN ---
Subjective Progress Note Date: 07/12/17 Principal diagnosis: SOB Feeling better. Objective - Vital Signs Vital signs: Vital Signs Temp 97.1 F L 07/12/17 08:00 Pulse 124 H 07/12/17 08:00 Resp 18 07/12/17 08:00 BP 124/74 07/12/17 08:00 Pulse Ox 96 07/12/17 08:00 Intake & Output 07/11/17 07/12/17 07/12/17 18:59 06:59 18:59 Intake Total 900 1180 180 Output Total 900 2750 300 Balance 0 -1570 -120 Weight 99.9 kg 99 kg Intake: IV 850 950 Piperacillin-Tazobactam 3 50 50 .375 gm In Dextrose/Water 1 50ml.bag @ 12.5 mls/hr IVPB Q8H [facility] Rx#: [id number] Sodium Chloride 0.9% 1, 800 900 000 ml @ 100 mls/hr IV . Q10H [facility] Rx#:[id number] Oral 180 Tube Feeding 50 230 Output: Urine 900 2750 300 Other: Voiding Method Urinal Urinal # Voids 1 - Exam Constitutional: No acute distress, conversant, pleasant Eyes:Anicteric sclerae, moist conjunctiva, no lid-lag, PERRLA, ENMT: Oropharynx clear, no erythema, exudates Neck: Supple, FROM, no masses, or JVD, No carotid bruits, No thyromegaly Lungs: Diminished bs bilaterally, bilateral rhonchi and wheezes, Clear to percussion, Normal respiratory effort, no accessory muscle use Cardiovascular: Heart regular in rate and rhythm, No murmurs, gallops, or rubs, No peripheral edema Abdominal: PEG tube in place, soft, Nontender, no guarding, rebound or rigidity , Normoactive bowel sounds, No hepatomegaly, No splenomegaly, No palpable mass Skin: Normal temperature, tone, texture, turgor, no induration, No subcutaneous nodules, No rash, lesions, No ulcers Extremities: No digital cyanosis, No clubbing, Pedal pulses intact and symmetrical, Radial pulses intact and symmetrical, No calf tenderness Psychiatric: Alert and oriented to person, place and time, appropriate affect, intact judgement Neuro: Muscles Strength 5/5 in all 4 extremities, Sensation to light touch grossly present throughout, Cranial nerves II-XII grossly intact, no focal sensory deficits - Labs CBC & Chem 7: 07/12/17 06:12 07/12/17 06:12 Labs: Abnormal Lab Results - Last 24 Hours (Table) 07/12/17 07/12/17 07/12/17 Range/Units 06:12 06:12 06:31 RBC 3.66 L (4.30-5.90) m/uL Hgb 11.0 L (13.0-17.5) gm/dL Hct 34.9 L (39.0-53.0) % Chloride 97 L (98-107) mmol/L Carbon Dioxide 37 H (22-30) mmol/L BUN 2 L (9-20) mg/dL Creatinine 0.54 L (0.66-1.25) mg/dL POC Glucose (mg/dL) 71 L (75-99) mg/dL Magnesium 1.5 L (1.6-2.3) mg/dL AST 15 L (17-59) U/L Total Protein 5.2 L (6.3-8.2) g/dL Albumin 2.7 L (3.5-5.0) g/dL 07/12/17 Range/Units 11:32 RBC (4.30-5.90) m/uL Hgb (13.0-17.5) gm/dL Hct (39.0-53.0) % Chloride (98-107) mmol/L Carbon Dioxide (22-30) mmol/L BUN (9-20) mg/dL Creatinine (0.66-1.25) mg/dL POC Glucose (mg/dL) 68 L (75-99) mg/dL Magnesium (1.6-2.3) mg/dL AST (17-59) U/L Total Protein (6.3-8.2) g/dL Albumin (3.5-5.0) g/dL Microbiology - Last 24 Hours (Table) 07/08/17 08:40 Blood Culture - Preliminary Blood No Growth after 96 hours Assessment and Plan Plan: (1) Acute community-acquired pneumonia likely aspiration pneumonia Continue zosyn due to likely aspiration. No history of COPD so no indication for steroids. Nebs every 6 hours when necessary (2) History of dysphagia/Cerebrovascular accident S/P PEG on 07/10 Started on tube feeds--d/w nutrition service--TF rate is not at goal yet. (3) Diabetes type 2 Acck AC and hs Continue insulin detemir 10 units daily SSI with blood sugar checks every 6hours. BS controlled (4) Hyperlipidemia On zocor (5) DVT prophylaxis: SCDs
--- NOTE | 2017-07-12 13:15 | P.PN ---
<StoneyPerla M - Last Filed: 07/12/17 13:16> Subjective Progress Note Date: 07/12/17 52-year-old gentleman being seen and examined at bedside tube feeds in progress per PEG tube per dietitian's recommendations tolerating the tube feeds denies any nausea vomiting no redness noted around PEG tube site patient is postop July 10 EGD with PEG tube placement after patient failed swallow eval. Objective - Vital Signs Vital signs: Vital Signs Temp 97.1 F L 07/12/17 08:00 Pulse 124 H 07/12/17 08:00 Resp 18 07/12/17 08:00 BP 124/74 07/12/17 08:00 Pulse Ox 96 07/12/17 08:00 Intake & Output 07/11/17 07/12/17 07/12/17 18:59 06:59 18:59 Intake Total 900 1180 180 Output Total 900 2750 300 Balance 0 -1570 -120 Weight 99.9 kg 99 kg Intake: IV 850 950 Piperacillin-Tazobactam 3 50 50 .375 gm In Dextrose/Water 1 50ml.bag @ 12.5 mls/hr IVPB Q8H [facility] Rx#: [id number] Sodium Chloride 0.9% 1, 800 900 000 ml @ 100 mls/hr IV . Q10H [facility] Rx#:[id number] Oral 180 Tube Feeding 50 230 Output: Urine 900 2750 300 Other: Voiding Method Urinal Urinal # Voids 1 - Exam Physical exam 52-year-old male sitting up in bed pleasant cooperative oriented 3 less voice hoarseness Lungs bilateral fine crackles at the bases no wheezing adequate air movement no cough noted Heart S1-S2 audible regular Abdomen PEG tube in place dressing around site dry tube feeds in progress nondistended nontender bowel tones present urinating no difficulty stool 1 this morning no nausea no vomiting Extremities no edema noted - Labs CBC & Chem 7: 07/12/17 06:12 07/12/17 06:12 Labs: Abnormal Lab Results - Last 24 Hours (Table) 07/12/17 07/12/17 07/12/17 Range/Units 06:12 06:12 06:31 RBC 3.66 L (4.30-5.90) m/uL Hgb 11.0 L (13.0-17.5) gm/dL Hct 34.9 L (39.0-53.0) % Chloride 97 L (98-107) mmol/L Carbon Dioxide 37 H (22-30) mmol/L BUN 2 L (9-20) mg/dL Creatinine 0.54 L (0.66-1.25) mg/dL POC Glucose (mg/dL) 71 L (75-99) mg/dL Magnesium 1.5 L (1.6-2.3) mg/dL AST 15 L (17-59) U/L Total Protein 5.2 L (6.3-8.2) g/dL Albumin 2.7 L (3.5-5.0) g/dL 07/12/17 Range/Units 11:32 RBC (4.30-5.90) m/uL Hgb (13.0-17.5) gm/dL Hct (39.0-53.0) % Chloride (98-107) mmol/L Carbon Dioxide (22-30) mmol/L BUN (9-20) mg/dL Creatinine (0.66-1.25) mg/dL POC Glucose (mg/dL) 68 L (75-99) mg/dL Magnesium (1.6-2.3) mg/dL AST (17-59) U/L Total Protein (6.3-8.2) g/dL Albumin (3.5-5.0) g/dL Microbiology - Last 24 Hours (Table) 07/08/17 08:40 Blood Culture - Preliminary Blood No Growth after 96 hours Assessment and Plan Assessment: Impression Acute community-acquired pneumonia likely due to aspiration A history of brainstem stroke 1 year prior with residual right-sided facial weakness impaired swallowing prior placed PEG tube with subsequent removal History of dysphasia prior brainstem stroke Recent swallow eval suspected aspiration Urine culture present on admission positive for group D enterococcus A prior history of DVT and PE completed a course of elquis Plan Initiate nutritional support utilizing PEG tube per dietitian's recommendations Aspiration precautions Defer to admitting service and other consultants for management of medical issues surgical perspective patient is felt to be appropriate to be discharged defer to the timing of the discharge to medicine service Will sign off re-eval as needed dr francesco ward on behalf of Dr. Valladares The above impression and plan of care have been discussed and directed by signing physician. Perla Lua nurse practitioner acting as scribe for signing physician. <Shelton Lynn - Last Filed: 07/12/17 18:28> Objective - Vital Signs Vital signs: Vital Signs Temp 97.7 F 07/12/17 15:49 Pulse 124 H 07/12/17 15:49 Resp 18 07/12/17 15:49 BP 136/90 07/12/17 15:49 Pulse Ox 99 07/12/17 15:49 Intake & Output 07/11/17 07/12/17 07/12/17 18:59 06:59 18:59 Intake Total 900 1180 1040 Output Total 900 2750 975 Balance 0 -1570 65 Weight 99.9 kg 99 kg 99 kg Intake: IV 850 950 Piperacillin-Tazobactam 3 50 50 .375 gm In Dextrose/Water 1 50ml.bag @ 12.5 mls/hr IVPB Q8H [facility] Rx#: [id number] Sodium Chloride 0.9% 1, 800 900 000 ml @ 100 mls/hr IV . Q10H [facility] Rx#:[id number] Oral 380 Tube Feeding 50 230 660 Output: Urine 900 2750 975 Other: Voiding Method Urinal Urinal Urinal # Voids 1 # Bowel Movements 0 - Labs CBC & Chem 7: 07/12/17 06:12 07/12/17 06:12 Labs: Abnormal Lab Results - Last 24 Hours (Table) 07/12/17 07/12/17 07/12/17 Range/Units 06:12 06:12 06:31 RBC 3.66 L (4.30-5.90) m/uL Hgb 11.0 L (13.0-17.5) gm/dL Hct 34.9 L (39.0-53.0) % Chloride 97 L (98-107) mmol/L Carbon Dioxide 37 H (22-30) mmol/L BUN 2 L (9-20) mg/dL Creatinine 0.54 L (0.66-1.25) mg/dL POC Glucose (mg/dL) 71 L (75-99) mg/dL Magnesium 1.5 L (1.6-2.3) mg/dL AST 15 L (17-59) U/L Total Protein 5.2 L (6.3-8.2) g/dL Albumin 2.7 L (3.5-5.0) g/dL 07/12/17 Range/Units 11:32 RBC (4.30-5.90) m/uL Hgb (13.0-17.5) gm/dL Hct (39.0-53.0) % Chloride (98-107) mmol/L Carbon Dioxide (22-30) mmol/L BUN (9-20) mg/dL Creatinine (0.66-1.25) mg/dL POC Glucose (mg/dL) 68 L (75-99) mg/dL Magnesium (1.6-2.3) mg/dL AST (17-59) U/L Total Protein (6.3-8.2) g/dL Albumin (3.5-5.0) g/dL Microbiology - Last 24 Hours (Table) 07/08/17 08:40 Blood Culture - Preliminary Blood No Growth after 96 hours Assessment and Plan Plan: Patient is tolerating tube feeds via his PEG tube. He will be hopefully discharge home tomorrow. We will follow up as an outpatient.
--- NOTE | 2017-07-12 13:52 | P.PN ---
<Adriana Tena M - Last Filed: 07/12/17 13:45> Subjective Progress Note Date: 07/12/17 Principal diagnosis: aspiration pneumonia This is a 52-year-old male seen yesterday in consultation. He came into the emergency department with complaints of cough and shortness of breath. It been going on for a couple weeks but got worse over the last couple days prior to admission. In addition the patient has some coughing up of yellow-green phlegm. Not coughing up any blood. The patient did have a fever. The patient is a lifelong nonsmoker. Chest x-ray revealed bilateral pneumonia. Today's chest x-rays a bit worse. Clinically he is a bit better. The patient came in with a normal lactic acid. Was a little hypotensive initially. Did present with sepsis syndrome picture. Responded nicely to fluids. Did not need to come to the ICU. Resting comfortably on the sixth floor. On 07/10/2017 patient is seen in follow-up on selective care unit.Complaining of excessive coughing, severe coughing spells. Lung sounds are positive for coarse inspiratory crackles over bilateral bases. 2 L per nasal cannula with O2 sat at 95-97%.Had been afebrile since admission. Today's chest x-ray has been reviewed by Dr. Barron shows basilar opacities with persistent right upper lobe patchy opacity. Previously seen Dr. Barron in the office on , his chronic cough was felt to be related to his swallowing and dysphagia causing irritation of the upper airways. Status post left sided brainstem stroke right-sided weakness involving the face, upper and lower extremities and difficulties with speech and swallow. The patient apparently had a PEG tube inserted for chronic dysphagia and ultimately the PEG tube was removed as the patient had improvement in his swallowing process. He was seen by Dr. Bautista, for symptoms of dysphagia and the patient was also known to have chronic problems with reflux esophagitis. He was taken to the operating room and the patient underwent a Davis fundoplication on 12/21/2016. Postoperative esophagram showed no evidence of any leak or significant obstruction post surgery. The patient had continued to have dysphagia and further evaluation was done by an EGD that was done on 05/11/2017 and the patient was found to have some is a fpc narrowing proximally and EGD and balloon dilatation of the esophagus was done. The most recent swallow evaluation that was done on 06/04/2017 and showed spasm/stenosis at the proximal esophagus without evidence of any aspiration or penetration. The patient was in the hospital on July 2016 for symptoms of syncope. At that time CT angios the chest was done that showed no evidence of any lung disease. There was a questionable filling defect in the right lower lobe pulmonary artery branch. Dopplers of the lower extremities were negative and the patient was committed to anticoagulation with Eliquis for a total of 6 months and then discontinued. A repeat CAT scan of the chest was done on December 2016 that showed no residual clot in the right lower pulmonary artery branch. Neurology has been reviewed and shows urine culture positive for group D enterococcus, sputum culture positive for Clare, blood culture shows no growth at the 48 hour jessica. Based on his history and after speaking to Clare speech pathologist, aspiration is strongly suspected. On 07/11/2017 patient seen again, he is status post PEG tube insertion on 2017. Tolerated the procedure well. Afebrile, hemodynamically stable. Lung sounds reveal crackles at bilateral bases. The cough seems to have subsided some. Microbiology has been reviewed, urine culture shows Enterococcus faecalis sputum cultures positive for Clare albicans. Patient continues on Zosyn. Overall patient denies any worsening dyspnea. Remains nothing by mouth except for ice chips. He remains on 12 hours per nasal cannula with O2 sat at 98%. On 07/12/2017 patient seen again on [facility] care floor. Doing well, lung sounds are clear, diminished at the bases. No rales, no rhonchi. Still has the productive cough with production of white and yellow sputum. Remains nothing by mouth except for the ice chips and sips of water. PEG tube is in place with tube feedings. However where told that his tube feeding is not up to goal right now, this is being gradually increased and patient is being monitored for tolerance. Otherwise his vital signs are stable, patient remains afebrile, he is on 2 L per nasal cannula with O2 sat 96%. Sputum culture is positive for Clare, and urine cultures positive for Enterococcus faecalis with sensitivity to penicillin. Patient continues on Zosyn. Lab work has been reviewed, no evidence of leukocytosis, WBC is 5.0, hemoglobin is stable at 11, BUN is 2, creatinine 0.54, chloride is 97, carbon dioxide is 37, sodium is 141, potassium is 4.2. No new chest x-ray today. We will obtain one tomorrow. Objective - Vital Signs Vital signs: Vital Signs Temp 97.1 F L 07/12/17 08:00 Pulse 124 H 07/12/17 08:00 Resp 18 07/12/17 08:00 BP 124/74 07/12/17 08:00 Pulse Ox 96 07/12/17 08:00 Intake & Output 07/11/17 07/12/17 07/12/17 18:59 06:59 18:59 Intake Total 900 1180 180 Output Total 900 2750 300 Balance 0 -1570 -120 Weight 99.9 kg 99 kg Intake: IV 850 950 Piperacillin-Tazobactam 3 50 50 .375 gm In Dextrose/Water 1 50ml.bag @ 12.5 mls/hr IVPB Q8H [facility] Rx#: [id number] Sodium Chloride 0.9% 1, 800 900 000 ml @ 100 mls/hr IV . Q10H [facility] Rx#:[id number] Oral 180 Tube Feeding 50 230 Output: Urine 900 2750 300 Other: Voiding Method Urinal Urinal # Voids 1 - Exam No acute distress, oriented 3. HEENT examination is grossly unremarkable. Mucous membranes are moist. No oral lesions. Neck supple. Full range of motion. No adenopathy thyromegaly or neck vein distention. Cardiovascular examination reveals regular rhythm rate. S1-S2 normal. No S3 or S4. No discernible murmur noted. Lungs reveal clear lung sounds, no rales, no rhonchi, no wheezing. No wheezes. Abdomen soft bowel sounds are heard. No masses or tenderness. PEG tube is present for left upper quadrant, with tube feedings infusing continuously. Extremities are intact. No cyanosis clubbing or edema. Skin is without rash or lesion. Neurologic examination is brief but nonfocal. - Labs CBC & Chem 7: 07/12/17 06:12 07/12/17 06:12 Labs: Abnormal Lab Results - Last 24 Hours (Table) 07/12/17 07/12/17 07/12/17 Range/Units 06:12 06:12 06:31 RBC 3.66 L (4.30-5.90) m/uL Hgb 11.0 L (13.0-17.5) gm/dL Hct 34.9 L (39.0-53.0) % Chloride 97 L (98-107) mmol/L Carbon Dioxide 37 H (22-30) mmol/L BUN 2 L (9-20) mg/dL Creatinine 0.54 L (0.66-1.25) mg/dL POC Glucose (mg/dL) 71 L (75-99) mg/dL Magnesium 1.5 L (1.6-2.3) mg/dL AST 15 L (17-59) U/L Total Protein 5.2 L (6.3-8.2) g/dL Albumin 2.7 L (3.5-5.0) g/dL 07/12/17 Range/Units 11:32 RBC (4.30-5.90) m/uL Hgb (13.0-17.5) gm/dL Hct (39.0-53.0) % Chloride (98-107) mmol/L Carbon Dioxide (22-30) mmol/L BUN (9-20) mg/dL Creatinine (0.66-1.25) mg/dL POC Glucose (mg/dL) 68 L (75-99) mg/dL Magnesium (1.6-2.3) mg/dL AST (17-59) U/L Total Protein (6.3-8.2) g/dL Albumin (3.5-5.0) g/dL Microbiology - Last 24 Hours (Table) 07/08/17 08:40 Blood Culture - Preliminary Blood No Growth after 96 hours Assessment and Plan Plan: Assessment: #1. Hypoxic respiratory failure secondary to aspiration pneumonia #2. Dyspnea, persistent cough and weakness, noted to the above #3. 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 #4. History of #5. History DVT/PE, completed a course of Eliquis #6. Hypertension #7. Hyperlipidemia Plan: Patient is receiving tube feedings, which are not up to goal yet. Which is being gradually increased, so far the patient is tolerating it well. Continue Zosyn for aspiration pneumonia. Enterococcus in the urine culture is also sensitive to penicillin. Patient remains stable from pulmonary standpoint, afebrile, no evidence of leukocytosis. Obtain a 2 view chest x-ray tomorrow, and the patient remains stable he will be cleared for discharge tomorrow. I performed a history & physical examination of the patient and discussed their management with my nurse practitioner, Adriana Tena. I reviewed the nurse practitioner's note and agree with the documented findings and plan of care. Lung sounds are clear, diminished at the bases. The findings and the impression was discussed with the patient. I attest to the documentation by the nurse practitioner. Time with Patient: Less than 30 <Ingrid Barron - Last Filed: 07/12/17 15:43> Objective - Vital Signs Vital signs: Vital Signs Temp 97.4 F L 07/12/17 12:00 Pulse 124 H 07/12/17 12:00 Resp 18 07/12/17 12:00 BP 142/82 07/12/17 12:00 Pulse Ox 97 07/12/17 12:00 Intake & Output 07/11/17 07/12/17 07/12/17 18:59 06:59 18:59 Intake Total 900 1180 860 Output Total 900 2750 300 Balance 0 -1570 560 Weight 99.9 kg 99 kg Intake: IV 850 950 Piperacillin-Tazobactam 3 50 50 .375 gm In Dextrose/Water 1 50ml.bag @ 12.5 mls/hr IVPB Q8H [facility] Rx#: [id number] Sodium Chloride 0.9% 1, 800 900 000 ml @ 100 mls/hr IV . Q10H [facility] Rx#:[id number] Oral 380 Tube Feeding 50 230 480 Output: Urine 900 2750 300 Other: Voiding Method Urinal Urinal Urinal # Voids 1 - Labs CBC & Chem 7: 07/12/17 06:12 07/12/17 06:12 Labs: Abnormal Lab Results - Last 24 Hours (Table) 07/12/17 07/12/17 07/12/17 Range/Units 06:12 06:12 06:31 RBC 3.66 L (4.30-5.90) m/uL Hgb 11.0 L (13.0-17.5) gm/dL Hct 34.9 L (39.0-53.0) % Chloride 97 L (98-107) mmol/L Carbon Dioxide 37 H (22-30) mmol/L BUN 2 L (9-20) mg/dL Creatinine 0.54 L (0.66-1.25) mg/dL POC Glucose (mg/dL) 71 L (75-99) mg/dL Magnesium 1.5 L (1.6-2.3) mg/dL AST 15 L (17-59) U/L Total Protein 5.2 L (6.3-8.2) g/dL Albumin 2.7 L (3.5-5.0) g/dL 07/12/17 Range/Units 11:32 RBC (4.30-5.90) m/uL Hgb (13.0-17.5) gm/dL Hct (39.0-53.0) % Chloride (98-107) mmol/L Carbon Dioxide (22-30) mmol/L BUN (9-20) mg/dL Creatinine (0.66-1.25) mg/dL POC Glucose (mg/dL) 68 L (75-99) mg/dL Magnesium (1.6-2.3) mg/dL AST (17-59) U/L Total Protein (6.3-8.2) g/dL Albumin (3.5-5.0) g/dL Microbiology - Last 24 Hours (Table) 07/08/17 08:40 Blood Culture - Preliminary Blood No Growth after 96 hours Assessment and Plan Plan: Joint evaluation that was done along with the nurse practitioner. The patient is still being treated for a aspiration right lung pneumonia. Discharge planning is in progress. The patient will have a enteral feeding pump for enteral feeding and nutritional support. He is coughing some yellowish sputum. We'll obtain a final chest x-ray tomorrow prior to his discharge. I attest to the above-mentioned information. We'll continue to follow.
[2017-07-12 17:07] LABS: Glucose,Whole Blood 91 mg/dL (75-99)
[2017-07-12 20:58] LABS: Glucose,Whole Blood 91 mg/dL (75-99)
[2017-07-12] MEDS: ATORVASTATIN 20 MG TAB PO SCH (21:11)
[2017-07-12] MEDS: INSULIN DETEMIR 100 UNIT/ML 10 ML VIAL SQ SCH (22:01)
[2017-07-13] MEDS: HYDROmorphone 1 MG/ML 1 ML SYRINGE IVP PRN ×2 (02:13→06:10)
[2017-07-13] MEDS: PIPERACILLIN-TAZOBACTAM 3.375 GM in DEXTROSE/WATER 1 50ML.BAG IVPB SCH ×3 (03:12→19:25)
[2017-07-13 06:04] LABS: Glucose,Whole Blood 110 mg/dL (75-99)
[2017-07-13] MEDS: INSULIN ASPART 100 UNIT/ML 1 ML 10 ML VIAL SQ SCH ×4 (06:04→21:48)
--- NOTE | 2017-07-13 07:19 | XR ---
EXAMINATION TYPE: XR chest 2V DATE OF EXAM: 07/13/2017 COMPARISON: July 10, 2017 HISTORY: Shortness of breath TECHNIQUE: Frontal and lateral views of the chest are obtained. FINDINGS: Scattered senescent parenchymal changes noted. Hyperinflation compatible with COPD. Basilar infiltrates persist. Heart size is stable. Mediastinal structures are stable and grossly unremarkable. No evidence for hilar prominence. Degenerative changes dorsal spine. IMPRESSION: 1. Persistent basilar infiltrates.
[2017-07-13] MEDS: PROMETHAZINE 6.25MG/5ML 147.5 MG/118 ML BOTTLE PO SCH ×2 (08:39→20:07)
[2017-07-13] MEDS: GABAPENTIN 300 MG CAP PO SCH ×3 (08:39→20:07)
[2017-07-13] MEDS: AMITRIPTYLINE HCL 25 MG TAB PO SCH ×2 (08:39→20:06)
[2017-07-13] MEDS: PANTOPRAZOLE 40 MG/10 ML VIAL IVP SCH (08:39)
[2017-07-13] MEDS: SODIUM CHLORIDE 0.9% 1,000 ML IV SCH ×2 (08:40→20:06)
[2017-07-13] MEDS: HYDROcodone/APAP 5-325MG 1 EACH TAB PO PRN ×2 (08:50→16:01)
[2017-07-13 11:02] VITALS: BMI 31.0
[2017-07-13 12:27] LABS: Glucose,Whole Blood 118 mg/dL (75-99)
--- NOTE | 2017-07-13 14:40 | P.DS ---
Providers Date of admission: 07/08/17 09:59 Expected date of discharge: 07/13/17 Attending physician: Sandra Rodriguez MD Consults: 07/10/17 14:05 Consult Physician Routine Consulting Provider: Dev Valladares Consult Reason/Comments: PEG Tube Insertion Do you want consulting provider notified?: Yes 07/08/17 09:59 Consult Physician Stat Consulting Provider: Chaparro Ruvalcaba Consult Reason/Comments: critical care Do you want consulting provider notified?: Yes Primary care physician: Dasha Marsh MD Hospital Course: 52-year-old male presented to the emergency department with complaints of cough and shortness of breath. In addition he had some hoarseness in his voice. He was coughing up some yellow phlegm, no hemoptysis. The patient did have subjective fevers but when he came in to the ER his temp was normal. All of his vital signs were normal as well except O2 sats which were in the early 90s. The patient has a history of becoming lifelong nonsmoker. Chest x-ray reveals bilateral pulmonary infiltrates. The patient had a normal lactic acid. He didn' t have any leukocytosis. Since he has been having chronic dysphagia he was seen by speech who evaluated him and thought he must be NPO because his swallow mechanics were ineffective and minimal amount of food was reaching his stomach. Because of the aspiration risk he was treated with zosyn for the pneumonia which was thought to be induced by aspiration. He was subsequently seen by general surgery who placed a PEG tube for feeding. Today he will reach the TF goal at 7pm. That was discussed with the advertising agency manager. Patient will be on augmentin for 1 more week after discharge. He was tought how to handle his tube feeds and a priscription for the feeds was given. Total time for discharge 35min. Plan - Discharge Summary Discharge Rx Participant: Yes New Discharge Prescriptions: New Amoxicillin/Potassium Clav [Augmentin 875-125 Tablet] 1 tab PO Q12HR 7 Days # 14 tab Continue Insulin Glargine [Lantus] 20 unit SQ HS Simvastatin [Zocor] 40 mg PO HS Metoprolol Tartrate [Lopressor] 25 mg PO BID Gabapentin 600 mg PO TID Amitriptyline HCl [Elavil] 25 mg PO BID Escitalopram [Lexapro] 20 mg PO DAILY Insulin Aspart [NovoLOG Flexpen] 30 units SQ TID Promethazine 6.25MG/5Ml [Phenergan Syrup] 6.25 mg PO Q12H Omeprazole 40 mg PO DAILY HYDROcodone/APAP 5-325MG [Somers 5-325] 1 tab PO Q4HR PRN PRN Reason: Pain Discharge Medication List Insulin Glargine [Lantus] 20 unit SQ HS 07/09/16 [History] Gabapentin 600 mg PO TID 10/13/16 [History] Metoprolol Tartrate [Lopressor] 25 mg PO BID 10/13/16 [History] Simvastatin [Zocor] 40 mg PO HS 10/13/16 [History] Amitriptyline HCl [Elavil] 25 mg PO BID 12/07/16 [History] Escitalopram [Lexapro] 20 mg PO DAILY 06/13/17 [History] Insulin Aspart [NovoLOG Flexpen] 30 units SQ TID 06/13/17 [History] Omeprazole 40 mg PO DAILY 06/13/17 [History] Promethazine 6.25MG/5Ml [Phenergan Syrup] 6.25 mg PO Q12H 06/13/17 [History] HYDROcodone/APAP 5-325MG [Somers 5-325] 1 tab PO Q4HR PRN 07/08/17 [History] Amoxicillin/Potassium Clav [Augmentin 875-125 Tablet] 1 tab PO Q12HR 7 Days #14 tab 07/13/17 [Rx] Follow up Appointment(s)/Referral(s): Dasha Marsh MD [Primary Care Provider] - 1-2 days [facility], [NON-STAFF] - [facility], [REFERRING] - Shelton Lynn MD [STAFF PHYSICIAN] - 1 Week Patient Instructions/Handouts: How to Stop Smoking (DC), How to Use and Care for Your PEG Tube (DC) Activity/Diet/Wound Care/Special Instructions: Tube feeding recommendations for home: Glucerna 1.5 goal rate of 55cc/hr via pump; flush with 200ml free water six times per day
[2017-07-13] MEDS ORDERED: METOCLOPRAMIDE 5 MG/ML 2 ML VIAL IVP STA (15:53)
--- NOTE | 2017-07-13 16:12 | P.PN ---
Progress Note - Text Progress Note Date: 07/13/17 The patient is tolerating tube feeds. His PEG site is clean dry and intact. He will be discharged home today and follow myself in the office.
--- NOTE | 2017-07-13 16:34 | P.PN ---
Subjective Progress Note Date: 07/13/17 This is a 52-year-old male seen yesterday in consultation. He came into the emergency department with complaints of cough and shortness of breath. It been going on for a couple weeks but got worse over the last couple days prior to admission. In addition the patient has some coughing up of yellow-green phlegm. Not coughing up any blood. The patient did have a fever. The patient is a lifelong nonsmoker. Chest x-ray revealed bilateral pneumonia. Today's chest x-rays a bit worse. Clinically he is a bit better. The patient came in with a normal lactic acid. Was a little hypotensive initially. Did present with sepsis syndrome picture. Responded nicely to fluids. Did not need to come to the ICU. Resting comfortably on the sixth floor. On 07/10/2017 patient is seen in follow-up on selective care unit.Complaining of excessive coughing, severe coughing spells. Lung sounds are positive for coarse inspiratory crackles over bilateral bases. 2 L per nasal cannula with O2 sat at 95-97%.Had been afebrile since admission. Today's chest x-ray has been reviewed by Dr. Barron shows basilar opacities with persistent right upper lobe patchy opacity. Previously seen Dr. Barron in the office on , his chronic cough was felt to be related to his swallowing and dysphagia causing irritation of the upper airways. Status post left sided brainstem stroke right-sided weakness involving the face, upper and lower extremities and difficulties with speech and swallow. The patient apparently had a PEG tube inserted for chronic dysphagia and ultimately the PEG tube was removed as the patient had improvement in his swallowing process. He was seen by Dr. Bautista, for symptoms of dysphagia and the patient was also known to have chronic problems with reflux esophagitis. He was taken to the operating room and the patient underwent a Davis fundoplication on 12/21/2016. Postoperative esophagram showed no evidence of any leak or significant obstruction post surgery. The patient had continued to have dysphagia and further evaluation was done by an EGD that was done on 05/11/2017 and the patient was found to have some is a long-term narrowing proximally and EGD and balloon dilatation of the esophagus was done. The most recent swallow evaluation that was done on 06/04/2017 and showed spasm/stenosis at the proximal esophagus without evidence of any aspiration or penetration. The patient was in the hospital on July 2016 for symptoms of syncope. At that time CT angios the chest was done that showed no evidence of any lung disease. There was a questionable filling defect in the right lower lobe pulmonary artery branch. Dopplers of the lower extremities were negative and the patient was committed to anticoagulation with Eliquis for a total of 6 months and then discontinued. A repeat CAT scan of the chest was done on December 2016 that showed no residual clot in the right lower pulmonary artery branch. Neurology has been reviewed and shows urine culture positive for group D enterococcus, sputum culture positive for Clare, blood culture shows no growth at the 48 hour jessica. Based on his history and after speaking to Clare speech pathologist, aspiration is strongly suspected. On 07/11/2017 patient seen again, he is status post PEG tube insertion on 2017. Tolerated the procedure well. Afebrile, hemodynamically stable. Lung sounds reveal crackles at bilateral bases. The cough seems to have subsided some. Microbiology has been reviewed, urine culture shows Enterococcus faecalis sputum cultures positive for Clare albicans. Patient continues on Zosyn. Overall patient denies any worsening dyspnea. Remains nothing by mouth except for ice chips. He remains on 12 hours per nasal cannula with O2 sat at 98%. On 07/12/2017 patient seen again on [facility] care floor. Doing well, lung sounds are clear, diminished at the bases. No rales, no rhonchi. Still has the productive cough with production of white and yellow sputum. Remains nothing by mouth except for the ice chips and sips of water. PEG tube is in place with tube feedings. However where told that his tube feeding is not up to goal right now, this is being gradually increased and patient is being monitored for tolerance. Otherwise his vital signs are stable, patient remains afebrile, he is on 2 L per nasal cannula with O2 sat 96%. Sputum culture is positive for Clare, and urine cultures positive for Enterococcus faecalis with sensitivity to penicillin. Patient continues on Zosyn. Lab work has been reviewed, no evidence of leukocytosis, WBC is 5.0, hemoglobin is stable at 11, BUN is 2, creatinine 0.54, chloride is 97, carbon dioxide is 37, sodium is 141, potassium is 4.2. No new chest x-ray today. We will obtain one tomorrow. On 07/13/2017 the patient is being seen for a follow-up. The patient is feeling well. Chest x-ray was repeated and it shows no acute abnormalities. Limited infiltration of the right lung base. Patient is coming some limited amount of sputum. No fever. No chills. He is nothing by mouth. He is gradually advancing his enteral feeding to goal. The tentative plan is to discharge this patient home. I would recommend discharging home on oral Augmentin to complete a seven-day course. Objective - Vital Signs Vital signs: Vital Signs Temp 96.8 F L 07/13/17 12:20 Pulse 99 07/13/17 12:20 Resp 18 07/13/17 12:20 BP 177/91 07/13/17 12:20 Pulse Ox 97 07/13/17 12:20 Intake & Output 07/12/17 07/13/17 07/13/17 18:59 06:59 18:59 Intake Total 1040 490 340 Output Total 975 Balance 65 490 340 Weight 99 kg 98.2 kg 98.2 kg Intake: Oral 380 Tube Feeding 660 490 340 Output: Urine 975 Other: Voiding Method Urinal Urinal Urinal # Voids 1 # Bowel Movements 0 - Exam No acute distress, oriented 3. HEENT examination is grossly unremarkable. Mucous membranes are moist. No oral lesions. Neck supple. Full range of motion. No adenopathy thyromegaly or neck vein distention. Cardiovascular examination reveals regular rhythm rate. S1-S2 normal. No S3 or S4. No discernible murmur noted. Lungs reveal clear lung sounds, no rales, no rhonchi, no wheezing. No wheezes. Abdomen soft bowel sounds are heard. No masses or tenderness. PEG tube is present for left upper quadrant, with tube feedings infusing continuously. Extremities are intact. No cyanosis clubbing or edema. Skin is without rash or lesion. Neurologic examination is brief but nonfocal. - Labs CBC & Chem 7: 07/12/17 06:12 07/12/17 06:12 Labs: Abnormal Lab Results - Last 24 Hours (Table) 07/13/17 07/13/17 Range/Units 06:02 12:10 POC Glucose (mg/dL) 110 H 118 H (75-99) mg/dL Microbiology - Last 24 Hours (Table) 07/08/17 08:40 Blood Culture - Preliminary Blood No Growth after 120 hours Assessment and Plan Plan: Assessment: #1. Acute right lower lobe pneumonia with secondary hypoxic respiratory failure from which the patient is recovered. The patient was covered with IV Zosyn. The patient is nothing by mouth. PEG tube was inserted and the patient was started on enteral feeding for nutritional support. His enterofeeding is gradually being advanced to goal. He is tolerating the diet without any major difficulties. The plan is to discharge this patient home today. #2. Dyspnea, persistent cough and weakness, noted to the above, improved #3. 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 #4. History of #5. History DVT/PE, completed a course of Eliquis #6. Hypertension #7. Hyperlipidemia Plan The patient can be discharged home on oral Augmentin to be given through his PEG tube twice a day for a complete a total of 7-10 days. Outpatient follow-up regarding his right lower lobe pneumonia. Outpatient follow-up with neurology and primary care. One final chest x-ray will be done in a week's time to make sure the right lower lobe pulmonary infiltrate is completely recovered.
[2017-07-13 16:58] LABS: Glucose,Whole Blood 108 mg/dL (75-99)
[2017-07-13] MEDS: ATORVASTATIN 20 MG TAB PO SCH (20:07)
[2017-07-13] MEDS: HYDROmorphone 2 MG/ML 1 ML SYRINGE IVP PRN (20:11)
[2017-07-13 20:42] LABS: Glucose,Whole Blood 122 mg/dL (75-99)
[2017-07-13] MEDS: INSULIN DETEMIR 100 UNIT/ML 10 ML VIAL SQ SCH (21:49)
[2017-07-14] MEDS: HYDROmorphone 2 MG/ML 1 ML SYRINGE IVP PRN (01:50)
[2017-07-14] MEDS: PIPERACILLIN-TAZOBACTAM 3.375 GM in DEXTROSE/WATER 1 50ML.BAG IVPB SCH ×2 (01:51→10:09)
[2017-07-14] MEDS: HYDROcodone/APAP 5-325MG 1 EACH TAB PO PRN ×2 (06:03→10:07)
[2017-07-14] MEDS: SODIUM CHLORIDE 0.9% 1,000 ML IV SCH (06:04)
[2017-07-14] MEDS: INSULIN ASPART 100 UNIT/ML 1 ML 10 ML VIAL SQ SCH ×2 (06:05→12:15)
[2017-07-14 06:07] LABS: Glucose,Whole Blood 94 mg/dL (75-99)
[2017-07-14] MEDS: GABAPENTIN 300 MG CAP PO SCH (09:58)
[2017-07-14] MEDS: ATORVASTATIN 20 MG TAB PO SCH (09:58)
[2017-07-14] MEDS: AMITRIPTYLINE HCL 25 MG TAB PO SCH (09:58)
[2017-07-14] MEDS: PANTOPRAZOLE 40 MG/10 ML VIAL IVP SCH (09:58)
[2017-07-14] MEDS: PROMETHAZINE 6.25MG/5ML 147.5 MG/118 ML BOTTLE PO SCH (09:59)
--- NOTE | 2017-07-14 10:41 | P.PN ---
Progress Note - Text Progress Note Date: 07/14/17 The patient resting comfortably in his bed. He is awaiting discharge. On exam his vital signs are stable. His abdomen is soft. Patient will be discharged home today. He'll follow myself in 1 week.
[2017-07-14 10:50] VITALS: RESP 18; TEMP 96.7
[2017-07-14] MEDS ORDERED: METOCLOPRAMIDE 5 MG/ML 2 ML VIAL IVP STA (11:34)
[2017-07-14 11:42] LABS: Glucose,Whole Blood 93 mg/dL (75-99)
[2017-07-14 12:18] VITALS: BP 167/80; PULSE 77
--- NOTE | 2017-07-14 15:00 | P.PN ---
Subjective Progress Note Date: 07/13/17 Principal diagnosis: SOB Doing well, awaiting for TF rate to reach goal. Objective - Vital Signs Vital signs: Vital Signs Temp 96.7 F L 07/14/17 08:00 Pulse 77 07/14/17 12:00 Resp 18 07/14/17 12:00 BP 167/80 07/14/17 12:00 Pulse Ox 90 L 07/14/17 12:00 Intake & Output 07/13/17 07/14/17 07/14/17 18:59 06:59 18:59 Intake Total 942 699 5458 Balance 704 506 4742 Weight 98.2 kg 95.9 kg Intake: IV 750 Piperacillin-Tazobactam 3 50 .375 gm In Dextrose/Water 1 50ml.bag @ 12.5 mls/hr IVPB Q8H [facility] Rx#: [id number] Sodium Chloride 0.9% 1, 700 000 ml @ 100 mls/hr IV . Q10H [facility] Rx#:[id number] Tube Feeding 510 730 560 Other 150 Other: Voiding Method Urinal Urinal # Voids 1 - Exam Constitutional: No acute distress, conversant, pleasant Eyes:Anicteric sclerae, moist conjunctiva, no lid-lag, PERRLA, ENMT: Oropharynx clear, no erythema, exudates Neck: Supple, FROM, no masses, or JVD, No carotid bruits, No thyromegaly Lungs: Diminished bs bilaterally, bilateral rhonchi and wheezes, Clear to percussion, Normal respiratory effort, no accessory muscle use Cardiovascular: Heart regular in rate and rhythm, No murmurs, gallops, or rubs, No peripheral edema Abdominal: PEG tube in place, soft, Nontender, no guarding, rebound or rigidity , Normoactive bowel sounds, No hepatomegaly, No splenomegaly, No palpable mass Skin: Normal temperature, tone, texture, turgor, no induration, No subcutaneous nodules, No rash, lesions, No ulcers Extremities: No digital cyanosis, No clubbing, Pedal pulses intact and symmetrical, Radial pulses intact and symmetrical, No calf tenderness Psychiatric: Alert and oriented to person, place and time, appropriate affect, intact judgement Neuro: Muscles Strength 5/5 in all 4 extremities, Sensation to light touch grossly present throughout, Cranial nerves II-XII grossly intact, no focal sensory deficits - Labs CBC & Chem 7: 01/04/18 06:12 07/12/17 06:12 Labs: Abnormal Lab Results - Last 24 Hours (Table) 07/13/17 07/13/17 Range/Units 16:38 20:31 POC Glucose (mg/dL) 108 H 122 H (75-99) mg/dL Microbiology - Last 24 Hours (Table) 07/08/17 08:40 Blood Culture - Final Blood No Growth after 144 hours Assessment and Plan Plan: (1) Acute community-acquired pneumonia likely aspiration pneumonia Continue zosyn due to likely aspiration. No history of COPD so no indication for steroids. Nebs every 6 hours when necessary (2) History of dysphagia/Cerebrovascular accident S/P PEG on 07/10 Started on tube feeds--d/w nutrition service--TF rate is not at goal yet. (3) Diabetes type 2 Acck AC and hs Continue insulin detemir 10 units daily SSI with blood sugar checks every 6hours. BS controlled (4) Hyperlipidemia On zocor (5) DVT prophylaxis: SCDs
--- NOTE | 2017-07-18 13:55 | CDI ---
Documentation Clarification Form Date: 07/18/2017 1:44:00 PM From: Marquita Gary Admit Date: 07/08/2017 9:59:00 AM Patient Name: Fredrick Corona Visit Number: [id number] Discharge Date: ATTENTION: The Clinical Documentation Specialists (CDI) and [facility] Coding Staff appreciate your assistance in clarifying documentation. Please respond to the clarification below the line at the bottom and electronically sign. The CDI & [facility] Coding staff will review the response and follow-up if needed. Please note: Queries are made part of the Legal Health Record. If you have any questions, please contact the author of this message via ITS. Dr. Martha Blunt Severe Sepsis is documented on ED. Sepsis and shock are documented on the H&P. Sepsis syndrome picture is documented in the progress notes. History/Risk Factors: aspiration pneumonia WBC/Left Shift 10.5 Blood cultures: no growth Vitals signs on admission: temp 102.4, pulse 96, 106, 98 respiration 20, 22 Other Clinical Indicators: Antibiotics: IV antibiotics IV Bolus: given in ER In your professional opinion, please clarify if these findings signify one of the following conditions, whether the condition is POA: Sepsis ruled out Sepsis Severe Sepsis Septic Shock Other, please specify Unable to determine Present on Admission: Yes No Link or clarify if there is associated (due to/with): Organ failure Shock SIRS Criteria..2 or more of the following may indicate SIRS: Temperature < 96.8F (36C) or > 101.0F (38.3C) Heart Rate > 90 bpm Respiratory Rate > 20 breaths/min or PaCO2 < 32 mmHg White Blood Cell Count > 12,000 or < 4,000 cells/mm3 or > 10% bands Lactate >2.0 mmol/L (>4.0 is equivalent to septic shock) Please continue to document in your progress notes and discharge summary in order to capture severity of illness and risk of mortality. Include clinical findings that support your diagnosis. Patient had sepsis on admission MTDD
--- NOTE | 2017-07-24 12:47 | P.CONS ---
History of Present Illness - Reason for Consult Consult date: 07/09/17 Dysphagia - History of Present Illness The patient is a 52-year-old male who presented to the emergency department with complaints of cough and shortness of breath of two weeks and that has gotten worse over the last couple days prior to admission. In addition the patient has some coughing up of yellow-green phlegm. Not coughing up any blood. The patient did have a fever. The patient is a lifelong nonsmoker. Chest x-ray revealed bilateral pneumonia. He has history of left sided brainstem stroke right-sided weakness involving the face, upper and lower extremities and difficulties with speech and swallow. The patient apparently had a PEG tube inserted for chronic dysphagia and ultimately the PEG tube was removed as the patient had improvement in his swallowing process. He was seen by Dr. Bautista, for symptoms of dysphagia and the patient was also known to have chronic problems with reflux esophagitis. He was taken to the operating room and the patient underwent a Davis fundoplication on 12/21/2016. Postoperative esophagram showed no evidence of any leak or significant obstruction post surgery. The patient had continued to have dysphagia and further evaluation was done by an EGD that was done on 05/11/2017 and the patient was found to have some narrowing proximally and EGD and balloon dilatation of the esophagus was done. The most recent swallow evaluation that was done on 06/04/2017 and showed spasm/stenosis at the proximal esophagus without evidence of any aspiration or penetration. His chronic cough was felt to be related to his swallowing and dysphagia causing irritation of the upper airways. The patient was in the hospital on July 2016 for symptoms of syncope. We are asked to see him regarding his dysphagia. Review of Systems 12 point review of systems is, otherwise, not revealing. Past Medical History Past Medical History: CVA/TIA, Diabetes Mellitus, Deep Vein Thrombosis (DVT), GERD/Reflux, Hyperlipidemia, Hypertension, Musculoskeletal Disorder, Pulmonary Embolus (PE), Syncope Additional Past Medical History / Comment(s): states "unable to pass barium swallow but able to swallow some foods and fluids." LUMBAR STENOSIS. HX DVT LT CALF, THEN PE. HX IBS. COLON POLYPS, hypertensive cardio vascular disease with left ventricular hypertrophy. cataracts. rt side of body temperature intolerance History of Any Multi-Drug Resistant Organisms: MRSA Year Discovered:: MDRO Source:: sputum Past Surgical History: Appendectomy, Cholecystectomy Additional Past Surgical History / Comment(s): EXPLORATORY LAPAROTOMY, FUSION L4 -L5, colonoscopy, PEG tube history - removed in october Past Anesthesia/Blood Transfusion Reactions: No Reported Reaction Past Psychological History: Anxiety Additional Psychological History / Comment(s): Pt lives with friends. He rents a room. He is independent. Smoking Status: Never smoker Past Alcohol Use History: None Reported Additional Past Alcohol Use History / Comment(s): Patient has been a lifelong nonsmoker. He drinks alcohol rarely. 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 Past Drug Use History: None Reported - Past Family History Father History Unknown: Yes Mother Family Medical History: Cancer, Deep Vein Thrombosis (DVT) Medications and Allergies Home Medications Medication Instructions Recorded Confirmed Type Insulin Glargine [Lantus] 20 unit SQ HS 07/09/16 07/15/17 History Gabapentin 600 mg PO TID 10/13/16 07/15/17 History Metoprolol Tartrate [Lopressor] 25 mg PO BID 10/13/16 07/15/17 History Simvastatin [Zocor] 40 mg PO HS 10/13/16 07/15/17 History Amitriptyline HCl [Elavil] 25 mg PO BID 12/07/16 07/15/17 History Escitalopram [Lexapro] 20 mg PO DAILY 06/13/17 07/15/17 History Insulin Aspart [NovoLOG Flexpen] 30 units SQ TID 06/13/17 07/15/17 History Omeprazole 40 mg PO DAILY 06/13/17 07/15/17 History HYDROcodone/APAP 5-325MG [[place] 1 tab PO Q4HR PRN 07/08/17 07/15/17 History 5-325] Amoxicillin/Potassium Clav 1 tab PO Q12HR 7 Days #14 tab 07/13/17 07/15/17 Rx [Augmentin 875-125 Tablet] Promethazine 6.25MG/5Ml [Phenergan 6.25 mg PO Q12H PRN #118 ml 07/14/17 Rx Syrup] Allergies Allergy/AdvReac Type Severity Reaction Status Date / Time vancomycin Allergy kidneys Verified 07/15/17 19:40 shut down venom-honey bee Allergy Anaphylaxis Verified 07/15/17 19:40 [bee venom (honey bee)] Physical Exam Vitals: Vital Signs Temp Pulse Resp BP BP Pulse Ox 07/09/17 12:00 102 H 20 07/09/17 11:15 97.7 F 102 H 20 102/55 95 07/09/17 08:00 98.6 F 110 H 20 117/63 93 L 07/09/17 04:00 98.4 F 113 H 16 128/63 94 L 07/09/17 00:00 97.6 F 113 H 18 143/71 95 07/08/17 20:00 97.9 F 109 H 16 139/75 92 L Intake and Output 07/09/17 07/09/17 07/09/17 06:59 14:59 22:59 Intake Total 600 Output Total 300 Balance -300 600 Intake: Oral 600 Output: Urine 300 Other: Voiding Method Urinal Urinal # Voids 1 # Bowel Movements 0 Weight 99.2 kg General: Appeared stated age, very pleasant, in no acute distress Head and neck: Normocephalic and atraumatic. Conjunctivae pink and sclerae not icteric. Mucous membranes moist and pink. No masses in the neck or tracheal shifts Lungs: Clear to auscultation with no dullness to percussion Heart: Regular, no abnormal sounds, murmurs, gallops or friction rubs Abdomen: Soft, no masses, organomegalies or tenderness, bowel sounds present Extremities: No clubbing, cyanosis or edema Neurologic: Alert and oriented 3. Cranial nerves grossly intact. No gross sensory or motor abnormalities Results CBC & Chem 7: 07/12/17 06:12 07/12/17 06:12 Labs: Abnormal Lab Results - Last 24 Hours (Table) 07/08/17 07/08/17 07/09/17 Range/Units 16:38 20:53 06:02 POC Glucose (mg/dL) 108 H 172 H 163 H (75-99) mg/dL 07/09/17 Range/Units 11:32 POC Glucose (mg/dL) 116 H (75-99) mg/dL Microbiology - Last 24 Hours (Table) 07/08/17 11:10 Urine Culture - Preliminary Urine,Voided Group D Enterococcus 07/08/17 08:40 Blood Culture - Preliminary Blood No Growth after 24 hours 07/08/17 08:40 Gram Stain - Preliminary Sputum Assessment and Plan Assessment: Dysphagia, likely pre-esophageal and the cause of possible aspiration and pneumonia. Plan: Agree with your current management. I will discuss with you and suggest repeat evaluation by speech therapy and repeat modified barium study. Further plans according to his course and findings.
== END 2017-07-14 15:34 | disposition home health service (06) | DRG 871 ==
LOC: EC 07:54 → 6SEL 09:59
PROVIDERS: ADMIT Internal Medicine; ATTEND Internal Medicine
PROC: 3E0G76Z Introduction of Nutritional Substance into Upper GI, Via Natural or Artificial Opening (ICD-10-PCS; 2017-07-10)
PROC: 0DH68UZ Insertion of Feeding Device into Stomach, Via Natural or Artificial Opening Endoscopic (ICD-10-PCS; principal; 2017-07-10 08:20)
DX: A41.9 Sepsis, unspecified organism (principal); J96.91 Respiratory failure, unspecified with hypoxia; J69.0 Pneumonitis due to inhalation of food and vomit; I69.351 Hemiplegia and hemiparesis following cerebral infarction affecting right dominant side; E78.5 Hyperlipidemia, unspecified; K21.0 Gastro-esophageal reflux disease with esophagitis; J04.0 Acute laryngitis; E11.9 Type 2 diabetes mellitus without complications; I10 Essential (primary) hypertension; R13.10 Dysphagia, unspecified; F41.9 Anxiety disorder, unspecified; Z88.1 Allergy status to other antibiotic agents; Z91.030 Bee allergy status; Z79.899 Other long term (current) drug therapy; Z79.4 Long term (current) use of insulin; Z79.891 Long term (current) use of opiate analgesic; Z86.718 Personal history of other venous thrombosis and embolism; Z80.9 Family history of malignant neoplasm, unspecified; Z98.1 Arthrodesis status; Z90.89 Acquired absence of other organs; Z90.49 Acquired absence of other specified parts of digestive tract; Z86.711 Personal history of pulmonary embolism; Z86.14 Personal history of Methicillin resistant Staphylococcus aureus infection; Z98.41 Cataract extraction status, right eye; Z98.42 Cataract extraction status, left eye; Z86.010 Personal history of colon polyps; Z87.19 Personal history of other diseases of the digestive system
CPT/HCPCS: 36415; 43246; 71020; 71045; 71046; 80053; 81001; 83036; 83605; 83735; 84100; 85025; 85610; 85730; 87040; 87070; 87077; 87086; 87186; 87205; 87449; 87502; 93005; 94760; 96360; 96361; 96365; 99291

== ENCOUNTER 2017-07-15 19:04 | Emergency (ER) | payer OTHER ==
[2017-07-15 19:29] VITALS: RESP 18
--- NOTE | 2017-07-15 19:36 | ED ---
General Adult HPI - General Chief complaint: Arrhythmia/Palpitations Stated complaint: near syncope, discharged yesterday Time Seen by Provider: 07/15/17 19:10 Source: patient, RN notes reviewed, old records reviewed Mode of arrival: wheelchair Limitations: no limitations - History of Present Illness Initial comments: Is a 52-year-old male history of stroke history of PEG tube who was just discharged last yesterday after being treated for right lower lobe pneumonia who presents with complaints of dizzy episodes face had 4 episodes us far today with some feelings of a racing heart no overt chest pain no fevers chills or sweats. He is able drink water by mouth that he is fed by PEG tube at this time. He also complains of chronic back pain. He felt like he would almost pass out when he would get up. He has no other complaints at this time he was advised to come the hospital for evaluation. - Related Data Home Medications Medication Instructions Recorded Confirmed Insulin Glargine [Lantus] 20 unit SQ HS 07/09/16 07/15/17 Gabapentin 600 mg PO TID 10/13/16 07/15/17 Metoprolol Tartrate [Lopressor] 25 mg PO BID 10/13/16 07/15/17 Simvastatin [Zocor] 40 mg PO HS 10/13/16 07/15/17 Amitriptyline HCl [Elavil] 25 mg PO BID 12/07/16 07/15/17 Escitalopram [Lexapro] 20 mg PO DAILY 06/13/17 07/15/17 Insulin Aspart [NovoLOG Flexpen] 30 units SQ TID 06/13/17 07/15/17 Omeprazole 40 mg PO DAILY 06/13/17 07/15/17 HYDROcodone/APAP 5-325MG [[place] 1 tab PO Q4HR PRN 07/08/17 07/15/17 5-325] Previous Rx's Medication Instructions Recorded Amoxicillin/Potassium Clav 1 tab PO Q12HR 7 Days #14 tab 07/13/17 [Augmentin 875-125 Tablet] Promethazine 6.25MG/5Ml [Phenergan 6.25 mg PO Q12H PRN #118 ml 07/14/17 Syrup] Allergies Allergy/AdvReac Type Severity Reaction Status Date / Time vancomycin Allergy kidneys Verified 07/15/17 19:40 shut down venom-honey bee Allergy Anaphylaxis Verified 07/15/17 19:40 [bee venom (honey bee)] Review of Systems ROS Statement: Those systems with pertinent positive or pertinent negative responses have been documented in the HPI. ROS Other: All systems not noted in ROS Statement are negative. Past Medical History Past Medical History: CVA/TIA, Diabetes Mellitus, Deep Vein Thrombosis (DVT), GERD/Reflux, Hyperlipidemia, Hypertension, Musculoskeletal Disorder, Pulmonary Embolus (PE), Syncope Additional Past Medical History / Comment(s): states "unable to pass barium swallow but able to swallow some foods and fluids." LUMBAR STENOSIS. HX DVT LT CALF, THEN PE. HX IBS. COLON POLYPS, hypertensive cardio vascular disease with left ventricular hypertrophy. cataracts. rt side of body temperature intolerance History of Any Multi-Drug Resistant Organisms: MRSA Date of last positivie culture/infection: (per patient: culture done at [facility]) MDRO Source:: Sputum Past Surgical History: Appendectomy, Cholecystectomy Additional Past Surgical History / Comment(s): EXPLORATORY LAPAROTOMY, FUSION L4 -L5, colonoscopy, PEG tube. Past Anesthesia/Blood Transfusion Reactions: No Reported Reaction Past Psychological History: Anxiety Smoking Status: Never smoker Past Alcohol Use History: None Reported Past Drug Use History: None Reported - Past Family History Father History Unknown: Yes Mother Family Medical History: Cancer, Deep Vein Thrombosis (DVT) General Exam - General Exam Comments Initial Comments: This a well-developed well-nourished awake alert oriented times 3 male Limitations: no limitations General appearance: alert, in no apparent distress Head exam: Present: atraumatic, normocephalic, normal inspection Eye exam: Present: normal appearance, PERRL, EOMI. Absent: scleral icterus, conjunctival injection, periorbital swelling ENT exam: Present: normal exam, mucous membranes moist Neck exam: Present: normal inspection. Absent: tenderness, meningismus, lymphadenopathy Respiratory exam: Present: normal lung sounds bilaterally. Absent: respiratory distress, wheezes, rales, rhonchi, stridor Cardiovascular Exam: Present: normal rhythm, tachycardia, normal heart sounds, other (Occasional PACs). Absent: systolic murmur, diastolic murmur, rubs, gallop, clicks GI/Abdominal exam: Present: soft, normal bowel sounds. Absent: distended, tenderness, guarding, rebound, rigid Extremities exam: Present: normal inspection, full ROM, normal capillary refill. Absent: tenderness, pedal edema, joint swelling, calf tenderness Back exam: Present: normal inspection Neurological exam: Present: alert, oriented X3, CN II-XII intact Psychiatric exam: Present: normal affect, normal mood Skin exam: Present: warm, dry, intact, normal color. Absent: rash Course Vital Signs 07/15/17 07/15/17 07/15/17 19:07 19:25 19:29 Temperature 98.5 F Pulse Rate 122 H 114 H Pulse Rate [ 116 H [place]oir Accompanist ] Respiratory 16 18 Rate Blood Pressure 99/63 134/81 O2 Sat by Pulse 98 98 Oximetry 07/15/17 20:11 Temperature Pulse Rate 100 Pulse Rate [ Ch[place] Accompanist ] Respiratory 18 Rate Blood Pressure 116/65 O2 Sat by Pulse 95 Oximetry EKG Findings - EKG Results: EKG: interpreted by EL, sinus rhythm (Sinus tachycardia rate of 110 DE interval 142 QRS 70 QT since QTC of 364/492 occasional PVCs.) Medical Decision Making - Medical Decision Making The patient response to IV fluids I did discuss the findings with him and his family patient will be discharged the presentation is consistent with dehydration vasovagal episode. He also discharged to antibiotics through his feeding tube which may contribute to the above. - Lab Data Result diagrams: 07/15/17 20:15 07/15/17 20:15 Lab Results 07/15/17 07/15/17 07/15/17 Range/Units 20:15 20:15 20:15 WBC 9.4 (3.8-10.6) k/uL RBC 4.42 (4.30-5.90) m/uL Hgb 13.2 (13.0-17.5) gm/dL Hct 41.0 (39.0-53.0) % MCV 92.7 (80.0-100.0) fL MCH 29.9 (25.0-35.0) pg MCHC 32.2 (31.0-37.0) g/dL RDW 13.5 (11.5-15.5) % Plt Count 332 (150-450) k/uL Neutrophils % 79 % Lymphocytes % 13 % Monocytes % 6 % Eosinophils % 1 % Basophils % 1 % Neutrophils # 7.4 (1.3-7.7) k/uL Lymphocytes # 1.2 (1.0-4.8) k/uL Monocytes # 0.6 (0-1.0) k/uL Eosinophils # 0.1 (0-0.7) k/uL Basophils # 0.1 (0-0.2) k/uL Sodium 141 (137-145) mmol/L Potassium 3.5 (3.5-5.1) mmol/L Chloride 96 L (98-107) mmol/L Carbon Dioxide 36 H (22-30) mmol/L Anion Gap 9 mmol/L BUN 11 (9-20) mg/dL Creatinine 1.30 H (0.66-1.25) mg/dL Est GFR (MDRD) Af Amer >60 (>60 ml/min/1.73 sqM) Est GFR (MDRD) Non-Af 58 (>60 ml/min/1.73 sqM) Glucose 122 H (74-99) mg/dL Calcium 9.9 (8.4-10.2) mg/dL Magnesium 1.6 (1.6-2.3) mg/dL Total Bilirubin 0.3 (0.2-1.3) mg/dL AST 19 (17-59) U/L ALT 26 (21-72) U/L Alkaline Phosphatase 74 (38-126) U/L Total Creatine Kinase 52 L (55-170) U/L CK-MB (CK-2) 1.2 (0.0-2.4) ng/mL CK-MB (CK-2) Rel Index 2.3 Troponin I <0.012 (0.000-0.034) ng/mL Total Protein 6.5 (6.3-8.2) g/dL Albumin 3.5 (3.5-5.0) g/dL - Radiology Data Radiology results: report reviewed (I did review the imaging and report no acute findings.), image reviewed Disposition Clinical Impression: Dehydration, Orthostatic dizziness Disposition: HOME SELF-CARE Condition: Good Instructions: Dehydration (ED) Referrals: Dasha Marsh MD [Primary Care Provider] - 1-2 days
[2017-07-15] MEDS ORDERED: SODIUM CHLORIDE 0.9% 1,000 ML IV STA ×2 (20:07)
[2017-07-15 20:35] LABS: Basophils # (A) 0.1 k/uL (0-0.2); Basophils % (A) 1 %; Eosinophils # (A) 0.1 k/uL (0-0.7); Eosinophils % (A) 1 %; HGB 13.2 gm/dL (13.0-17.5); Lymphocytes # (A) 1.2 k/uL (1.0-4.8); Lymphocytes % (A) 13 %; MCH 29.9 pg (25.0-35.0); MCHC 32.2 g/dL (31.0-37.0); MCV 92.7 fL (80.0-100.0); Mean Platelet Volume 6.8; Monocytes # (A) 0.6 k/uL (0-1.0); Monocytes % (A) 6 %; Neutrophils # (A) 7.4 k/uL (1.3-7.7); Neutrophils % (A) 79 %; Platelet Count 332 k/uL (150-450); RBC 4.42 m/uL (4.30-5.90); RDW 13.5 % (11.5-15.5); WBC 9.4 k/uL (3.8-10.6)
--- NOTE | 2017-07-15 20:41 | XR ---
EXAMINATION TYPE: XR chest 2V DATE OF EXAM: 07/15/2017 COMPARISON: Chest x-ray from 2 days ago. HISTORY: Cough and congestion. TECHNIQUE: Frontal and lateral views of the chest are obtained. FINDINGS: There is no new focal air space opacity, pleural effusion, or pneumothorax seen. Persiste nt bibasilar opacities remain present. The cardiac silhouette size is within normal limits. The oss eous structures are intact. IMPRESSION: Persistent bibasilar atelectasis and/or infiltrate. No new infiltrates are seen. No sign ificant change from prior.
[2017-07-15 20:43] LABS: ALT 26 U/L (21-72); AST 19 U/L (17-59); Albumin 3.5 g/dL (3.5-5.0); Alkaline Phosphatase 74 U/L (38-126); Anion Gap 9 mmol/L; Blood Urea Nitrogen 11 mg/dL (9-20); Calcium 9.9 mg/dL (8.4-10.2); Carbon Dioxide 36 mmol/L (22-30); Chloride 96 mmol/L (98-107); Glucose 122 mg/dL (74-99); Magnesium 1.6 mg/dL (1.6-2.3); Sodium 141 mmol/L (137-145); Total Bilirubin 0.3 mg/dL (0.2-1.3); Total Protein 6.5 g/dL (6.3-8.2)
[2017-07-15 20:50] LABS: Potassium 3.5 mmol/L (3.5-5.1)
[2017-07-15 20:52] LABS: Creatine Kinase 52 U/L (55-170)
[2017-07-15 21:05] LABS: Creatine Kinase MB 1.2 ng/mL (0.0-2.4); Troponin I <0.012 ng/mL (0.000-0.034)
[2017-07-15] MEDS ORDERED: KETOROLAC 30 MG/ML 1 ML VIAL IVP STA (21:24)
[2017-07-15 21:40] VITALS: BP 128/62; PULSE 96; TEMP 98.4
== END 2017-07-15 22:00 | disposition home or self-care (01) ==
LOC: EC 19:04
DX: E86.0 Dehydration (principal); M54.9 Dorsalgia, unspecified; G89.29 Other chronic pain; R00.2 Palpitations; E11.9 Type 2 diabetes mellitus without complications; K21.9 Gastro-esophageal reflux disease without esophagitis; E78.5 Hyperlipidemia, unspecified; I10 Essential (primary) hypertension; F41.9 Anxiety disorder, unspecified; Z86.14 Personal history of Methicillin resistant Staphylococcus aureus infection; Z86.711 Personal history of pulmonary embolism; Z86.718 Personal history of other venous thrombosis and embolism; Z86.73 Personal history of transient ischemic attack (TIA), and cerebral infarction without residual deficits; Z79.4 Long term (current) use of insulin; Z79.899 Other long term (current) drug therapy; Z88.1 Allergy status to other antibiotic agents; Z91.030 Bee allergy status
CPT/HCPCS: 99285; 96374; 96361; 36415; 93005; 80053; 82550; 82553; 83735; 84484; 85025; 71046; J1885

== ENCOUNTER → 2017-07-23 | Outpatient (CLI) | payer OTHER ==
--- NOTE | 2017-07-23 13:47 | XR ---
EXAMINATION TYPE: XR chest 2V DATE OF EXAM: 07/23/2017 COMPARISON: July 15, 2017 HISTORY: Shortness of breath. Possible pneumonia TECHNIQUE: Frontal and lateral views of the chest are obtained. FINDINGS: Scattered senescent parenchymal changes noted. Mild patchy density at the lung bases may reflect atelectasis and/or infiltrate. Correlate clinically and progress studies may be of value. Heart size is stable. Mediastinal structures are stable and grossly unremarkable. No evidence for hilar prominence. Degenerative changes dorsal spine. IMPRESSION: 1. Mild patchy density at the lung bases may reflect atelectasis and/or infiltrate. Correlate clinica lly and progress studies may be of value.
== END | disposition home or self-care (01) ==
LOC: RADXRMAIN 11:59
PROVIDERS: ATTEND Family Medicine
DX: R91.8 Other nonspecific abnormal finding of lung field (principal)
CPT/HCPCS: 71046

== ENCOUNTER → 2017-07-31 | Outpatient (CLI) | payer OTHER ==
--- NOTE | 2017-07-31 09:31 | XR ---
EXAMINATION TYPE: XR chest 2V DATE OF EXAM: 07/31/2017 COMPARISON: 07/23/2017 HISTORY: Chest pain TECHNIQUE: Frontal and lateral views of the chest are obtained. FINDINGS: Persistent but improving patchy density right medial lung base. Continued follow-up recommended. No evidence for pneumothorax. No pleural effusion. The cardiac silhouette size is within normal limits. The osseous structures are grossly intact. IMPRESSION: 1. Persistent but improving patchy density right medial lung base. Continued follow-up recommended.
== END | disposition home or self-care (01) ==
LOC: RADXRMAIN 09:03
PROVIDERS: ATTEND Family Medicine
DX: J69.0 Pneumonitis due to inhalation of food and vomit (principal)
CPT/HCPCS: 71046

== ENCOUNTER → 2017-08-23 | Outpatient (CLI) | payer OTHER ==
--- NOTE | 2017-08-23 12:49 | XR ---
EXAMINATION TYPE: XR chest 2V DATE OF EXAM: 08/23/2017 COMPARISON: 07/31/2017 HISTORY: Shortness of breath TECHNIQUE: Frontal and lateral views of the chest are obtained. FINDINGS: Scattered senescent parenchymal changes noted. Hyperinflation compatible with COPD. No evidence for infiltrate. No evidence for atelectasis. Heart size is stable. Mediastinal structures are stable and grossly unremarkable. No evidence for hilar prominence. Degenerative changes dorsal spine. IMPRESSION: 1. No evidence for acute pulmonary disease.
== END | disposition home or self-care (01) ==
LOC: RADXRMAIN 12:28
PROVIDERS: ATTEND Family Medicine
DX: J69.0 Pneumonitis due to inhalation of food and vomit (principal)
CPT/HCPCS: 71046

== ENCOUNTER 2017-09-24 11:06 | Day surgery (SDC) | payer OTHER ==
[2017-09-19 10:20] VITALS: BMI 28.3
[~2017-09-24 11:06] MED LIST changes: -HEPARIN SODIUM,PORCINE 5,000 UNIT/ML 1 ML VIAL SQ ONE; +LACTATED RINGERS 1,000 ML IV SCH; -LIDOCAINE 1% 20 ML VIAL (10MG/ML) FOR IV START INTRADERMA PRN; +Pre Op ABX Message 1 EACH MISC MISCELLANE ONE; -ceFAZolin 2 GM in SODIUM CHLORIDE 0.9% 100 ML IVPB ONE; +fentaNYL (PF) 50 MCG/ML 2 ML AMP IV PRN
[2017-09-24 12:09] VITALS: RESP 16; TEMP 97.8
[2017-09-24 12:16] LABS: Glucose,Whole Blood 67 mg/dL (75-99)
[2017-09-24] MEDS ORDERED: DEXTROSE 50%-WATER 50 ML SYRINGE IVP ONE (12:18)
[2017-09-24] MEDS ORDERED: BUPIVACAINE (PF) 0.5% 30 ML VIAL SQ ONE ×3 (12:32→13:30)
[2017-09-24] MEDS ORDERED: LIDOCAINE 2% INJ 20 MG/ML SQ ONE ×3 (12:32→13:30)
[2017-09-24 12:34] LABS: Glucose,Whole Blood 125 mg/dL (75-99)
[2017-09-24] MEDS ORDERED: fentaNYL (PF) 50 MCG/ML 2 ML AMP ONE (13:22)
[2017-09-24] MEDS ORDERED: PROPOFOL 10 MG/ML 20 ML VIAL IV ONE (13:22)
[2017-09-24] MEDS ORDERED: MIDAZOLAM 2 MG/2 ML VIAL ONE (13:22)
[2017-09-24 14:23] VITALS: PULSE 92
[2017-09-24 14:32] LABS: Glucose,Whole Blood 132 mg/dL (75-99)
[2017-09-24 14:48] VITALS: BP 110/60
--- NOTE | 2017-09-25 11:04 | OP ---
OPERATIVE REPORT DATE OF SERVICE: 09/24/2017. SURGEON: Audie Romero DO. PREOPERATIVE DIAGNOSES: Right carpal tunnel syndrome and right cubital tunnel syndrome. POSTOPERATIVE DIAGNOSES: Right carpal tunnel syndrome and right cubital tunnel syndrome. PROCEDURE: 1. Right carpal tunnel release. 2. Right cubital tunnel release. DESCRIPTION OF PROCEDURE: The patient was taken to the operative suite where a sedation was administered by the department of anesthesia. I then performed a local injection along the line of the incision with a combination of Marcaine and Xylocaine both without epinephrine. The hand was then prepped and draped in the usual manner. The arm was elevated, exsanguinated and the cuff was inflated to 250 mm of mercury. A longitudinal incision was made along the ring finger ray distal to the wrist crease. Dissection was taken through the skin and subcutaneous tissue, initially sharp through the skin and then blunt through the subcutaneous tissue to ensure protection of any potential terminal transverse branches of the palmar cutaneous nerve. The palmar fascia was then incised under direct vision longitudinally exposing the transverse carpal ligament. The transverse carpal ligament also was incised under direct vision. The dissection was then continued proximally beneath the skin under direct vision to release the distal forearm fascia. The median nerve was then reflected free of tenosynovium to ensure no adhesions. The tourniquet was then released. The wound was then irrigated and the skin was closed with a running 5-0 nylon suture. A soft bulky dressing was applied including a volar plaster splint holding the wrist in a neutral slightly extended position. The arm was then prepped and draped in the usual manner. A longitudinal incision was made, somewhat posteriorly near the olecranon. Dissection was then taken through the skin and subcutaneous tissue with blunt dissection then performed to protect any posterior ranches of the medial antebrachial cutaneous nerve of the arm. The ulnar nerve was then visualized in the retrocondylar groove and was traced in both the proximal distal direction. Care was taken to ensure all potential site of nerve entrapment were decompressed including the arcade of [place], the medial intermuscular septums, the retrocondylar groove, decubital tunnel and the flexor aponeurosis distally. Care was taken to avoid dissecting the ulnar nerve from its vascular supply. At the completion of the procedure, the elbow was placed in flexion and there is no signs of subluxation. The wound was then irrigated and the skin was closed with running 5-0 nylon suture. Marcaine was injected for long acting anesthetic. A soft bulky dressing was applied. The patient was taken to the recovery room in satisfactory condition. DORI / CARLA: [id number] /
== END 2017-09-24 14:49 | disposition home or self-care (01) ==
LOC: OR 11:06
PROVIDERS: ATTEND Orthopaedic Surgery Hand Surgery
DX: G56.01 Carpal tunnel syndrome, right upper limb (principal); I10 Essential (primary) hypertension; E11.9 Type 2 diabetes mellitus without complications; E78.5 Hyperlipidemia, unspecified; N28.9 Disorder of kidney and ureter, unspecified; K21.9 Gastro-esophageal reflux disease without esophagitis; I69.391 Dysphagia following cerebral infarction; R13.10 Dysphagia, unspecified; F32.9 Major depressive disorder, single episode, unspecified; Z86.711 Personal history of pulmonary embolism; Z86.718 Personal history of other venous thrombosis and embolism; Z79.82 Long term (current) use of aspirin; Z79.4 Long term (current) use of insulin; Z79.899 Other long term (current) drug therapy; Z88.3 Allergy status to other anti-infective agents
CPT/HCPCS: 64721; 64718; J2001; J2250; J1100; J2405; J3010; J2704

== ENCOUNTER 2017-10-25 14:41 | Inpatient (IN) | payer OTHER ==
[2017-10-25] MEDS ORDERED: ACETAMINOPHEN TAB 500 MG TAB PO STA (14:49)
[2017-10-25] MEDS ORDERED: IBUPROFEN 600 MG TAB PO STA (14:49)
--- NOTE | 2017-10-25 14:51 | ED ---
General Adult HPI - General Stated complaint: HYPOTENSION Time Seen by Provider: 10/25/17 14:41 Source: RN notes reviewed - History of Present Illness Initial comments: This is a 52-year-old male who presents emergency Department stating that he was lightheaded while he was driving he also has been having quite a bit of cough with some sputum production. Patient states he has not been short of breath or having any difficulty breathing. Patient denies any chest pain or palpitations. Patient states he went to urgent care because of his symptoms and they sent here because his blood pressure was low. Patient denies any abdominal pain patient denies nausea vomiting diarrhea. Patient denies any dysuria hematuria urinary freaky. Patient denies any rashes or lesions. Patient states he has a past medical history significant for CVA and MRSA in the lungs in the past. - Related Data Home Medications Medication Instructions Recorded Confirmed Insulin Glargine [Lantus] 20 unit SQ HS 07/09/16 10/25/17 Gabapentin 600 mg PO TID 10/13/16 10/25/17 Metoprolol Tartrate [Lopressor] 25 mg PO BID 10/13/16 10/25/17 Simvastatin [Zocor] 40 mg PO HS 10/13/16 10/25/17 Escitalopram [Lexapro] 20 mg PO DAILY 06/13/17 10/25/17 Omeprazole 40 mg PO DAILY 06/13/17 10/25/17 Aspirin 325 mg PO DAILY 09/19/17 10/25/17 Insulin Aspart [NovoLOG] See Protocol SQ AC-TID 09/19/17 10/25/17 Ranitidine HCl [Zantac] 300 mg PO DAILY 10/25/17 10/25/17 Allergies Allergy/AdvReac Type Severity Reaction Status Date / Time vancomycin Allergy kidneys Verified 10/25/17 15:18 shut down venom-honey bee Allergy Anaphylaxis Verified 10/25/17 15:18 [bee venom (honey bee)] Review of Systems ROS Statement: Those systems with pertinent positive or pertinent negative responses have been documented in the HPI. ROS Other: All systems not noted in ROS Statement are negative. Past Medical History Past Medical History: CVA/TIA, Diabetes Mellitus, Deep Vein Thrombosis (DVT), GERD/Reflux, Hyperlipidemia, Hypertension, Musculoskeletal Disorder, Pulmonary Embolus (PE), Syncope Additional Past Medical History / Comment(s): states "unable to pass barium swallow but able to swallow some foods and fluids." LUMBAR STENOSIS. HX DVT LT CALF, THEN PE. HX IBS. COLON POLYPS, hypertensive cardio vascular disease with left ventricular hypertrophy. cataracts. rt side of body temperature intolerance History of Any Multi-Drug Resistant Organisms: MRSA Date of last positivie culture/infection: (per patient: culture done at [facility]) MDRO Source:: Sputum Past Surgical History: Appendectomy, Cholecystectomy Additional Past Surgical History / Comment(s): EXPLORATORY LAPAROTOMY, FUSION L4 -L5, colonoscopy, PEG tube. Past Anesthesia/Blood Transfusion Reactions: No Reported Reaction Past Alcohol Use History: None Reported - Past Family History Father History Unknown: Yes Mother Family Medical History: Cancer, Deep Vein Thrombosis (DVT) General Exam - General Exam Comments Initial Comments: GENERAL: Patient is well-developed and well-nourished. Patient is nontoxic and well- hydrated and is in no acute distress. ENT: Neck is soft and supple. No significant lymphadenopathy is noted. Oropharynx is clear. Moist mucous membranes. Neck has full range of motion without eliciting any pain. EYES: The sclera were anicteric and conjunctiva were pink and moist. Extraocular movements were intact and pupils were equal round and reactive to light. Eyelids were unremarkable. PULMONARY: Patient has crackles in the left base. CARDIOVASCULAR: There is a regular rate and rhythm without any murmurs gallops or rubs. ABDOMEN: Soft and nontender with normal bowel sounds. No palpable organomegaly was noted. There is no palpable pulsatile mass. SKIN: Skin is clear with no lesions or rashes and otherwise unremarkable. NEUROLOGIC: Patient is alert and oriented x3. Cranial nerves II through XII are grossly intact. Motor and sensory are also intact. Normal speech, volume and content. Symmetrical smile. MUSCULOSKELETAL:No lower extremity swelling or edema. No calf tenderness. LYMPHATICS: No significant lymphadenopathy is noted PSYCHIATRIC: Normal psychiatric evaluation. Normal interpersonal interactions appears functionally intact in deals appropriately with others. No signs of depression. No signs of anxiety. Course Vital Signs 10/25/17 10/25/17 10/25/17 14:57 14:59 15:06 Temperature 100.7 F H Pulse Rate 93 93 Respiratory 18 20 18 Rate Blood Pressure 84/51 92/51 O2 Sat by Pulse 92 L 99 Oximetry 10/25/17 10/25/1710/25/18 15:45 15:47 16:06 Temperature 99.4 F Pulse Rate 87 87 Respiratory 18 18 Rate Blood Pressure 89/58 99/47 O2 Sat by Pulse 95 94 L Oximetry 10/25/17 10/25/17 10/25/17 16:37 17:02 17:17 Temperature Pulse Rate 92 92 97 Respiratory 18 Rate Blood Pressure 111/69 O2 Sat by Pulse 95 Oximetry Medical Decision Making - Medical Decision Making EKG shows a normal sinus rhythm at 80 bpm NM interval 146 dresses 70 QT interval 376 QTC is 454. Patient's EKG shows no ST segment elevation or depression or T wave abnormalities are noted. Chest x-ray shows left lingual pneumonia I spoke with sounds physician's and agreed to admit the patient wrote admitting orders. - Lab Data Result diagrams: 10/26/17 05:40 10/26/17 05:40 Lab Results 10/25/17 10/25/17 10/25/17 Range/Units 14:55 14:55 14:55 WBC 10.7 H (3.8-10.6) k/uL RBC 3.98 L (4.30-5.90) m/uL Hgb 12.3 L (13.0-17.5) gm/dL Hct 36.2 L (39.0-53.0) % MCV 90.9 (80.0-100.0) fL MCH 31.0 (25.0-35.0) pg MCHC 34.1 (31.0-37.0) g/dL RDW 13.4 (11.5-15.5) % Plt Count 240 (150-450) k/uL Neutrophils % 81 % Lymphocytes % 9 % Monocytes % 6 % Eosinophils % 1 % Basophils % 0 % Neutrophils # 8.7 H (1.3-7.7) k/uL Lymphocytes # 1.0 (1.0-4.8) k/uL Monocytes # 0.6 (0-1.0) k/uL Eosinophils # 0.2 (0-0.7) k/uL Basophils # 0.0 (0-0.2) k/uL PT (9.0-12.0) sec INR (<1.2) APTT (22.0-30.0) sec Sodium 139 (137-145) mmol/L Potassium 5.5 H (3.5-5.1) mmol/L Chloride 98 (98-107) mmol/L Carbon Dioxide 30 (22-30) mmol/L Anion Gap 11 mmol/L BUN 14 (9-20) mg/dL Creatinine 1.10 (0.66-1.25) mg/dL Est GFR (CKD-EPI)AfAm 90 (>60 ml/min/1.73 sqM) Est GFR (CKD-EPI)NonAf 77 (>60 ml/min/1.73 sqM) Glucose 134 H (74-99) mg/dL Plasma Lactic Acid Calin 1.6 (0.7-2.0) mmol/L Calcium 8.8 (8.4-10.2) mg/dL Total Bilirubin 0.6 (0.2-1.3) mg/dL AST 38 (17-59) U/L ALT 10 L (21-72) U/L Alkaline Phosphatase 67 (38-126) U/L Troponin I (0.000-0.034) ng/mL Total Protein 6.7 (6.3-8.2) g/dL Albumin 3.5 (3.5-5.0) g/dL Urine Color Urine Appearance (Clear) Urine pH (5.0-8.0) Ur Specific [place] (1.001-1.035) Urine Protein (Negative) Urine Glucose (UA) (Negative) Urine Ketones (Negative) Urine Blood (Negative) Urine Nitrite (Negative) Urine Bilirubin (Negative) Urine Urobilinogen (<2.0) mg/dL Ur Leukocyte Esterase (Negative) Urine RBC (0-5) /hpf Urine WBC (0-5) /hpf Ur Squamous Epith Cells (0-4) /hpf Hyaline Casts (0-2) /lpf Urine Mucus (None) /hpf Influenza Type A RNA (Not Detectd) Influenza Type B (PCR) (Not Detectd) 10/25/17 10/25/17 10/25/17 Range/Units 14:55 14:55 14:55 WBC (3.8-10.6) k/uL RBC (4.30-5.90) m/uL Hgb (13.0-17.5) gm/dL Hct (39.0-53.0) % MCV (80.0-100.0) fL MCH (25.0-35.0) pg MCHC (31.0-37.0) g/dL RDW (11.5-15.5) % Plt Count (150-450) k/uL Neutrophils % % Lymphocytes % % Monocytes % % Eosinophils % % Basophils % % Neutrophils # (1.3-7.7) k/uL Lymphocytes # (1.0-4.8) k/uL Monocytes # (0-1.0) k/uL Eosinophils # (0-0.7) k/uL Basophils # (0-0.2) k/uL PT 10.5 (9.0-12.0) sec INR 1.1 (<1.2) APTT 25.2 (22.0-30.0) sec Sodium (137-145) mmol/L Potassium (3.5-5.1) mmol/L Chloride (98-107) mmol/L Carbon Dioxide (22-30) mmol/L Anion Gap mmol/L BUN (9-20) mg/dL Creatinine (0.66-1.25) mg/dL Est GFR (CKD-EPI)AfAm (>60 ml/min/1.73 sqM) Est GFR (CKD-EPI)NonAf (>60 ml/min/1.73 sqM) Glucose (74-99) mg/dL Plasma Lactic Acid Calin (0.7-2.0) mmol/L Calcium (8.4-10.2) mg/dL Total Bilirubin (0.2-1.3) mg/dL AST (17-59) U/L ALT (21-72) U/L Alkaline Phosphatase (38-126) U/L Troponin I <0.012 (0.000-0.034) ng/mL Total Protein (6.3-8.2) g/dL Albumin (3.5-5.0) g/dL Urine Color Urine Appearance (Clear) Urine pH (5.0-8.0) Ur Specific [place] (1.001-1.035) Urine Protein (Negative) Urine Glucose (UA) (Negative) Urine Ketones (Negative) Urine Blood (Negative) Urine Nitrite (Negative) Urine Bilirubin (Negative) Urine Urobilinogen (<2.0) mg/dL Ur Leukocyte Esterase (Negative) Urine RBC (0-5) /hpf Urine WBC (0-5) /hpf Ur Squamous Epith Cells (0-4) /hpf Hyaline Casts (0-2) /lpf Urine Mucus (None) /hpf Influenza Type A RNA Not Detected (Not Detectd) Influenza Type B (PCR) Not Detected (Not Detectd) 10/25/17 Range/Units 15:09 WBC (3.8-10.6) k/uL RBC (4.30-5.90) m/uL Hgb (13.0-17.5) gm/dL Hct (39.0-53.0) % MCV (80.0-100.0) fL MCH (25.0-35.0) pg MCHC (31.0-37.0) g/dL RDW (11.5-15.5) % Plt Count (150-450) k/uL Neutrophils % % Lymphocytes % % Monocytes % % Eosinophils % % Basophils % % Neutrophils # (1.3-7.7) k/uL Lymphocytes # (1.0-4.8) k/uL Monocytes # (0-1.0) k/uL Eosinophils # (0-0.7) k/uL Basophils # (0-0.2) k/uL PT (9.0-12.0) sec INR (<1.2) APTT (22.0-30.0) sec Sodium (137-145) mmol/L Potassium (3.5-5.1) mmol/L Chloride (98-107) mmol/L Carbon Dioxide (22-30) mmol/L Anion Gap mmol/L BUN (9-20) mg/dL Creatinine (0.66-1.25) mg/dL Est GFR (CKD-EPI)AfAm (>60 ml/min/1.73 sqM) Est GFR (CKD-EPI)NonAf (>60 ml/min/1.73 sqM) Glucose (74-99) mg/dL Plasma Lactic Acid Calin (0.7-2.0) mmol/L Calcium (8.4-10.2) mg/dL Total Bilirubin (0.2-1.3) mg/dL AST (17-59) U/L ALT (21-72) U/L Alkaline Phosphatase (38-126) U/L Troponin I (0.000-0.034) ng/mL Total Protein (6.3-8.2) g/dL Albumin (3.5-5.0) g/dL Urine Color Yellow Urine Appearance Cloudy (Clear) Urine pH 5.5 (5.0-8.0) Ur Specific [place] 1.016 (1.001-1.035) Urine Protein 1+ H (Negative) Urine Glucose (UA) Negative (Negative) Urine Ketones Negative (Negative) Urine Blood Negative (Negative) Urine Nitrite Negative (Negative) Urine Bilirubin Negative (Negative) Urine Urobilinogen <2.0 (<2.0) mg/dL Ur Leukocyte Esterase Negative (Negative) Urine RBC 4 (0-5) /hpf Urine WBC 11 H (0-5) /hpf Ur Squamous Epith Cells 1 (0-4) /hpf Hyaline Casts 21 H (0-2) /lpf Urine Mucus Few H (None) /hpf Influenza Type A RNA (Not Detectd) Influenza Type B (PCR) (Not Detectd) Critical Care Time Critical Care Time: Yes Total Critical Care Time: 35 Disposition Clinical Impression: Pneumonia, Sepsis Disposition: ADMITTED IP TO THIS HOSP Is patient prescribed a controlled substance at d/c from ED?: No Time of Disposition: 15:42
[2017-10-25 15:04] LABS: Basophils % (A) 0 %; Eosinophils # (A) 0.2 k/uL (0-0.7); Eosinophils % (A) 1 %; HCT 36.2 % (39.0-53.0); HGB 12.3 gm/dL (13.0-17.5); Lymphocytes % (A) 9 %; MCHC 34.1 g/dL (31.0-37.0); MCV 90.9 fL (80.0-100.0); Mean Platelet Volume 7.6; Monocytes # (A) 0.6 k/uL (0-1.0); Monocytes % (A) 6 %; Neutrophils # (A) 8.7 k/uL (1.3-7.7); Neutrophils % (A) 81 %; Platelet Count 240 k/uL (150-450); RBC 3.98 m/uL (4.30-5.90); RDW 13.4 % (11.5-15.5); WBC 10.7 k/uL (3.8-10.6)
[2017-10-25] MEDS: SODIUM CHLORIDE 0.9% 500 ML IV SCH ×2 (15:04→15:05)
[2017-10-25 15:12] LABS: INR 1.1 (<1.2); Partial Thromboplastin Time 25.2 sec (22.0-30.0); Prothrombin Time 10.5 sec (9.0-12.0)
[2017-10-25 15:15] LABS: Albumin 3.5 g/dL (3.5-5.0); Calcium 8.8 mg/dL (8.4-10.2); Potassium 5.5 mmol/L (3.5-5.1); Total Bilirubin 0.6 mg/dL (0.2-1.3); Total Protein 6.7 g/dL (6.3-8.2)
[2017-10-25 15:24] LABS: Appearance,Urine Cloudy (Clear); Bilirubin,Urine Negative (Negative); Blood,Urine Negative (Negative); Color,Urine Yellow; Glucose,Urine (UA) Negative (Negative); Hyaline Casts,Urine 21 /lpf (0-2); Ketones,Urine Negative (Negative); Leukocyte Esterase,Urine Negative (Negative); Mucus,Urine Few /hpf; Nitrite,Urine Negative (Negative); PH, Urine 5.5 (5.0-8.0); Protein,Urine 1+ (Negative); RBC,Urine 4 /hpf (0-5); Specific Gravity,Urine 1.016 (1.001-1.035); Squamous Epithelial Cell,Urine 1 /hpf (0-4); Urobilinogen,Urine <2.0 mg/dL (<2.0); WBC,Urine 11 /hpf (0-5)
--- NOTE | 2017-10-25 15:32 | XR ---
EXAMINATION TYPE: XR chest 2V DATE OF EXAM: 10/25/2017 COMPARISON: 08/23/2017 HISTORY: Fever TECHNIQUE: Frontal and lateral views of the chest are obtained. FINDINGS: There is consolidative process in the region of the lingula which may reflect pneumonia. Correlate cl inically and progress studies are recommended. No evidence for pneumothorax. No pleural effusion. The cardiac silhouette size is within normal limits. The osseous structures are grossly intact. IMPRESSION: 1. There is consolidative process in the region of the lingula which may reflect pneumonia. Correlat e clinically and progress studies are recommended.
[2017-10-25] MEDS ORDERED: LEVOFLOXACIN 750MG-D5W PMX 750 MG in DEXTROSE/WATER 1 150ML.BAG IVPB STA (15:39)
[2017-10-25] MEDS ORDERED: SODIUM CHLORIDE 0.9% 1,000 ML IV ONE (15:40)
[2017-10-25] MEDS ORDERED: ALBUTEROL NEBULIZED 2.5 MG/3 ML INHALATION PRN (15:42)
[2017-10-25] MEDS ORDERED: PNEUMONIA PROTOCOL UTILIZED 1 EACH MISC PO PRN ×2 (15:42→15:53)
[2017-10-25] MEDS ORDERED: IPRATROPIUM-ALBUTEROL 3 ML NEB INHALATION STA (15:48)
[2017-10-25] MEDS ORDERED: ACETAMINOPHEN TAB 325 MG TAB PO PRN (16:06)
--- NOTE | 2017-10-25 16:24 | P.HPIM ---
History of Present Illness H&P Date: 10/25/17 Chief Complaint: Dizziness 52-year-old male who presents emergency Department because of severe lightheadedness and weakness while he was driving. He felt foggy and had blurry vision in both eyes. Initially he went to [facility] and his bp was 60 systolic so he was referred to the ER. He also has been having cough with brown sputum production over the last 4 days. No shortness of breath, chest pain or palpitations. Patient denies any abdominal pain, nausea, vomiting or diarrhea. No urinary symptoms. Off note patient was in the hospital several months ago because of aspiration pneumonia and at that time he had a PEG tube inserted for chronic feeding because of his chronic dysphagia secondary to stroke had about 2 years ago. Since he had the PEG tube he denied having any bob aspiration and he stated that he is currently progressing in his swallowing to mechanical soft diet as of now. In the emergency department patient continued to have low blood pressure at around 80 systolic. He was given multiple fluid boluses and was subsequently admitted to the hospital for evaluation and management. Review of Systems 12 point review of system performed, negative except HPI Past Medical History Past Medical History: CVA/TIA, Diabetes Mellitus, Deep Vein Thrombosis (DVT), GERD/Reflux, Hyperlipidemia, Hypertension, Musculoskeletal Disorder, Pulmonary Embolus (PE), Syncope Additional Past Medical History / Comment(s): states "unable to pass barium swallow but able to swallow some foods and fluids." LUMBAR STENOSIS. HX DVT LT CALF, THEN PE. HX IBS. COLON POLYPS, hypertensive cardio vascular disease with left ventricular hypertrophy. cataracts. rt side of body temperature intolerance History of Any Multi-Drug Resistant Organisms: MRSA Date of last positivie culture/infection: (per patient: culture done at [facility]) MDRO Source:: Sputum Past Surgical History: Appendectomy, Cholecystectomy Additional Past Surgical History / Comment(s): EXPLORATORY LAPAROTOMY, FUSION L4 -L5, colonoscopy, PEG tube. Past Anesthesia/Blood Transfusion Reactions: No Reported Reaction Past Alcohol Use History: None Reported - Past Family History Father History Unknown: Yes Mother Family Medical History: Cancer, Deep Vein Thrombosis (DVT) Medications and Allergies Home Medications Medication Instructions Recorded Confirmed Type Insulin Glargine [Lantus] 20 unit SQ HS 07/09/16 10/25/17 History Gabapentin 600 mg PO TID 10/13/16 10/25/17 History Metoprolol Tartrate [Lopressor] 25 mg PO BID 10/13/16 10/25/17 History Simvastatin [Zocor] 40 mg PO HS 10/13/16 10/25/17 History Escitalopram [Lexapro] 20 mg PO DAILY 06/13/17 10/25/17 History Omeprazole 40 mg PO DAILY 06/13/17 10/25/17 History Aspirin 325 mg PO DAILY 09/19/17 10/25/17 History Insulin Aspart [NovoLOG] See Protocol SQ AC-TID 09/19/17 10/25/17 History Ranitidine HCl [Zantac] 300 mg PO DAILY 10/25/17 10/25/17 History Allergies Allergy/AdvReac Type Severity Reaction Status Date / Time vancomycin Allergy kidneys Verified 10/25/17 15:18 shut down venom-honey bee Allergy Anaphylaxis Verified 10/25/17 15:18 [bee venom (honey bee)] Physical Exam Vitals: Vital Signs Temp Pulse Resp BP Pulse Ox 10/25/17 16:06 87 18 99/47 94 L 10/25/17 15:47 99.4 F 10/25/17 15:45 87 18 89/58 95 10/25/17 15:06 93 18 92/51 99 10/25/17 14:59 20 10/25/17 14:57 100.7 F H 93 18 84/51 92 L Intake and Output 10/25/17 10/25/17 10/25/17 06:59 14:59 22:59 Other: Weight 90.718 kg Constitutional: No acute distress, conversant, pleasant Eyes:Anicteric sclerae, moist conjunctiva, no lid-lag, PERRLA, ENMT: Oropharynx clear, no erythema, exudates Neck: Supple, FROM, no masses, or JVD, No carotid bruits, No thyromegaly Lungs: Left lower chest coarse crackles, Clear to percussion, Normal respiratory effort, no accessory muscle use Cardiovascular: Heart regular in rate and rhythm, No murmurs, gallops, or rubs, No peripheral edema Abdominal: PEG tube in place, site clean, abdomen Soft, Nontender, no guarding, rebound or rigidity, Normoactive bowel sounds, No hepatomegaly, No splenomegaly , No palpable mass Skin: Normal temperature, tone, texture, turgor, no induration, No subcutaneous nodules, No rash, lesions, No ulcers Extremities: No digital cyanosis, No clubbing, Pedal pulses intact and symmetrical, Radial pulses intact and symmetrical, No calf tenderness Psychiatric: Alert and oriented to person, place and time, appropriate affect, intact judgement Neuro: Muscles Strength 5/5 in all 4 extremities, Sensation to light touch grossly present throughout, Cranial nerves II-XII grossly intact, no focal sensory deficits Results CBC & Chem 7: 10/25/17 14:55 10/25/17 14:55 Labs: Abnormal Lab Results - Last 24 Hours (Table) 10/25/17 10/25/17 10/25/17 Range/Units 14:55 14:55 15:09 WBC 10.7 H (3.8-10.6) k/uL RBC 3.98 L (4.30-5.90) m/uL Hgb 12.3 L (13.0-17.5) gm/dL Hct 36.2 L (39.0-53.0) % Neutrophils # 8.7 H (1.3-7.7) k/uL Potassium 5.5 H (3.5-5.1) mmol/L Glucose 134 H (74-99) mg/dL ALT 10 L (21-72) U/L Urine Protein 1+ H (Negative) Urine WBC 11 H (0-5) /hpf Hyaline Casts 21 H (0-2) /lpf Urine Mucus Few H (None) /hpf Assessment and Plan Plan: #1 Acute sepsis/acute aspiration pneumonia Start Levaquin and clindamycin Check lactic acid after 6 hours Sepsis focused exam as below IV fluids, NS will bolus was completed in then 150 per hour Monitor blood pressure closely #2 Diabetes type 2 Continue Lantus 20 units daily with sliding scale insulin Resume tube feed #3 History of CVA/hyperlipidemia/depression Stable Resume home medications #4 DVT prophylaxis Lovenox subcu
[2017-10-25] MEDS: SODIUM CHLORIDE 0.9% 1,000 ML IV SCH ×4 (16:48→23:23)
[2017-10-25 18:09] LABS: Glucose,Whole Blood 52 mg/dL (75-99)
[2017-10-25] MEDS: INSULIN ASPART 100 UNIT/ML 1 ML 10 ML VIAL SQ SCH ×2 (18:31→21:12)
[2017-10-25 18:50] LABS: Glucose,Whole Blood 66 mg/dL (75-99)
[2017-10-25 18:50] LABS: Glucose,Whole Blood 66 mg/dL (75-99)
[2017-10-25] MEDS: CLINDAMYCIN 600 MG in DEXTROSE 5% IN WATER 50 ML IVPB SCH ×4 (18:51→23:23)
[2017-10-25] MEDS ORDERED: DEXTROSE 50%-WATER 50 ML SYRINGE IVP STA (19:00)
[2017-10-25 19:26] LABS: Glucose,Whole Blood 80 mg/dL (75-99)
[2017-10-25] MEDS: ALBUTEROL NEBULIZED 2.5 MG/3 ML INHALATION PRN (20:27)
[2017-10-25 20:39] LABS: Glucose,Whole Blood 211 mg/dL (75-99)
[2017-10-25] MEDS: INSULIN DETEMIR 100 UNIT/ML 10 ML VIAL SQ SCH (21:12)
[2017-10-25] MEDS: PANTOPRAZOLE 40 MG TABLET PO SCH (21:13)
[2017-10-25] MEDS: GABAPENTIN 300 MG CAP PO SCH (21:13)
[2017-10-25] MEDS: ATORVASTATIN 20 MG TAB PO SCH (21:15)
[2017-10-26 02:45] LABS: Glucose,Whole Blood 142 mg/dL (75-99)
[2017-10-26 05:11] LABS: Glucose,Whole Blood 138 mg/dL (75-99)
[2017-10-26] MEDS: PANTOPRAZOLE 40 MG TABLET PO SCH (06:05)
[2017-10-26] MEDS: INSULIN ASPART 100 UNIT/ML 1 ML 10 ML VIAL SQ SCH ×4 (06:05→22:02)
[2017-10-26] MEDS: SODIUM CHLORIDE 0.9% 1,000 ML IV SCH ×2 (06:06→10:30)
[2017-10-26 06:48] LABS: Basophils % (A) 0 %; Eosinophils # (A) 0.1 k/uL (0-0.7); Eosinophils % (A) 1 %; HCT 31.5 % (39.0-53.0); HGB 10.4 gm/dL (13.0-17.5); Lymphocytes # (A) 1.1 k/uL (1.0-4.8); Lymphocytes % (A) 25 %; MCH 30.8 pg (25.0-35.0); MCHC 32.9 g/dL (31.0-37.0); MCV 93.6 fL (80.0-100.0); Mean Platelet Volume 6.5; Monocytes # (A) 0.3 k/uL (0-1.0); Monocytes % (A) 7 %; Neutrophils # (A) 2.7 k/uL (1.3-7.7); Neutrophils % (A) 63 %; Platelet Count 168 k/uL (150-450); RBC 3.37 m/uL (4.30-5.90); RDW 13.3 % (11.5-15.5); WBC 4.3 k/uL (3.8-10.6)
[2017-10-26 07:07] LABS: ALT 15 U/L (21-72); AST 11 U/L (17-59); Albumin 2.5 g/dL (3.5-5.0); Alkaline Phosphatase 67 U/L (38-126); Anion Gap 8 mmol/L; Blood Urea Nitrogen 12 mg/dL (9-20); Calcium 8.2 mg/dL (8.4-10.2); Carbon Dioxide 30 mmol/L (22-30); Chloride 102 mmol/L (98-107); Glucose 118 mg/dL (74-99); Magnesium 1.6 mg/dL (1.6-2.3); Phosphorus 4.4 mg/dL (2.5-4.5); Potassium 4.5 mmol/L (3.5-5.1); Sodium 140 mmol/L (137-145); Total Bilirubin <0.1 mg/dL (0.2-1.3); Total Protein 5.3 g/dL (6.3-8.2)
--- NOTE | 2017-10-26 07:22 | XR ---
EXAMINATION TYPE: XR chest 2V DATE OF EXAM: 10/26/2017 COMPARISON: Chest x-ray from yesterday and older studies. HISTORY: Pneumonia progress study TECHNIQUE: Frontal and lateral views of the chest are obtained. FINDINGS: There is persistent left basilar opacity on frontal view that correlates with lingular and lower lobe opacities on lateral view. No pleural effusion or pneumothorax is seen bilaterally. The c ardiac silhouette size is within normal limits. The osseous structures are intact. IMPRESSION: Persistent inferior lingular and posterior left lower lobe multifocal infiltrates. No ne w infiltrates are evident.
[2017-10-26] MEDS: FAMOTIDINE 20 MG TAB PO SCH (07:42)
[2017-10-26] MEDS: ENOXAPARIN 40 MG/0.4 ML SYRINGE SQ SCH (07:42)
[2017-10-26] MEDS: GABAPENTIN 300 MG CAP PO SCH ×3 (07:42→22:02)
[2017-10-26] MEDS: ASPIRIN 325 MG TAB PO SCH (07:42)
[2017-10-26] MEDS: CLINDAMYCIN 600 MG in DEXTROSE 5% IN WATER 50 ML IVPB SCH ×4 (07:42→16:21)
[2017-10-26] MEDS: ESCITALOPRAM 20 MG TAB PO SCH (07:43)
[2017-10-26] MEDS: ALBUTEROL NEBULIZED 2.5 MG/3 ML INHALATION PRN ×2 (08:40→11:36)
[2017-10-26 09:53] VITALS: BMI 28.4
--- NOTE | 2017-10-26 11:58 | P.PN ---
Subjective Progress Note Date: 10/26/17 Principal diagnosis: Sepsis secondary to pneumonia 52-year-old male with a known history of prior CVA, diabetes mellitus, hypertension, dysphagia with PEG, who presented with a one to two-week history of productive cough, chills and a one-day history of lightheadedness, dizziness. Found to be hypotensive with systolic in the 60s. Chest x-ray showing lingula and left lower lobe infiltrate. Patient admitted for sepsis secondary to pneumonia. Patient seen and examined today resting comfortably staying in the chair next to bed, states she has been tolerating oral liquid intake along with resumed PEG feedings. Patient states he has been ambulating to and from the bathroom without difficulty. Breathing comfortably at this time. Objective - Vital Signs Vital signs: Vital Signs Temp 98.0 F 10/26/17 11:48 Pulse 87 10/26/17 11:49 Resp 18 10/26/17 11:49 BP 140/74 10/26/17 11:48 Pulse Ox 99 10/26/17 11:48 Intake & Output 10/25/17 10/26/17 10/26/17 18:59 06:59 18:59 Intake Total 2700 1425 Balance 2700 1425 Weight 90.718 kg 92.4 kg 92.4 kg Intake: Intake, IV Titration 2700 Amount Clindamycin 600 mg In 50 Dextrose 5% in Water 50 ml @ 100 mls/hr IVPB Q8HR [facility] Rx#:[id number] Levofloxacin 750Mg-D5w 150 Pmx 750 mg In Dextrose/ Water 1 150ml.bag @ 100 mls/hr IVPB ONCE STA Rx#: [id number] Sodium Chloride 0.9% 1, 2500 000 ml @ 999 mls/hr IV . Q1H1M ONE Rx#:[id number] Oral 240 Tube Feeding 1185 Other: Voiding Method Toilet Toilet Toilet # Voids 1 - Exam General: A/O x 3, NAD, Lying in bed comfortably HEENT: EOMI, MMM, atraumatic normocephalic Neck: Supple. No JVD, trachea midline CVS: Regular rate and rhythm. + S1/S2, no murmurs/gallops/rubs Respiratory: Bilateral air entry noted. No wheeze. Left lower lung field rhonchi Abdomen: Soft, nontender, nondistended. Bowel sounds audible Extremities: No lower extremity edema. No clubbing or cyanosis Skin: No rash or skin change noted Psych: Without hallucinations, abnormal affect, or abnormal behaviors during the examination - Labs CBC & Chem 7: 10/26/17 05:40 10/26/17 05:40 Labs: Abnormal Lab Results - Last 24 Hours (Table) 10/25/17 10/25/17 10/25/17 Range/Units 14:55 14:55 15:09 WBC 10.7 H (3.8-10.6) k/uL RBC 3.98 L (4.30-5.90) m/uL Hgb 12.3 L (13.0-17.5) gm/dL Hct 36.2 L (39.0-53.0) % Neutrophils # 8.7 H (1.3-7.7) k/uL Potassium 5.5 H (3.5-5.1) mmol/L Creatinine (0.66-1.25) mg/dL Glucose 134 H (74-99) mg/dL POC Glucose (mg/dL) (75-99) mg/dL Plasma Lactic Acid Calin (0.7-2.0) mmol/L Calcium (8.4-10.2) mg/dL Total Bilirubin (0.2-1.3) mg/dL AST (17-59) U/L ALT 10 L (21-72) U/L Total Protein (6.3-8.2) g/dL Albumin (3.5-5.0) g/dL Urine Protein 1+ H (Negative) Urine WBC 11 H (0-5) /hpf Hyaline Casts 21 H (0-2) /lpf Urine Mucus Few H (None) /hpf 10/25/17 10/25/17 10/25/17 Range/Units 17:49 18:11 18:29 WBC (3.8-10.6) k/uL RBC (4.30-5.90) m/uL Hgb (13.0-17.5) gm/dL Hct (39.0-53.0) % Neutrophils # (1.3-7.7) k/uL Potassium (3.5-5.1) mmol/L Creatinine (0.66-1.25) mg/dL Glucose (74-99) mg/dL POC Glucose (mg/dL) 52 L 66 L 66 L (75-99) mg/dL Plasma Lactic Acid Calin (0.7-2.0) mmol/L Calcium (8.4-10.2) mg/dL Total Bilirubin (0.2-1.3) mg/dL AST (17-59) U/L ALT (21-72) U/L Total Protein (6.3-8.2) g/dL Albumin (3.5-5.0) g/dL Urine Protein (Negative) Urine WBC (0-5) /hpf Hyaline Casts (0-2) /lpf Urine Mucus (None) /hpf 10/25/17 10/25/17 10/26/17 Range/Units 20:37 21:04 02:34 WBC (3.8-10.6) k/uL RBC (4.30-5.90) m/uL Hgb (13.0-17.5) gm/dL Hct (39.0-53.0) % Neutrophils # (1.3-7.7) k/uL Potassium (3.5-5.1) mmol/L Creatinine (0.66-1.25) mg/dL Glucose (74-99) mg/dL POC Glucose (mg/dL) 211 H 142 H (75-99) mg/dL Plasma Lactic Acid Calin 0.6 L (0.7-2.0) mmol/L Calcium (8.4-10.2) mg/dL Total Bilirubin (0.2-1.3) mg/dL AST (17-59) U/L ALT (21-72) U/L Total Protein (6.3-8.2) g/dL Albumin (3.5-5.0) g/dL Urine Protein (Negative) Urine WBC (0-5) /hpf Hyaline Casts (0-2) /lpf Urine Mucus (None) /hpf 10/26/17 10/26/17 10/26/17 Range/Units 05:10 05:40 05:40 WBC (3.8-10.6) k/uL RBC 3.37 L (4.30-5.90) m/uL Hgb 10.4 L (13.0-17.5) gm/dL Hct 31.5 L (39.0-53.0) % Neutrophils # (1.3-7.7) k/uL Potassium (3.5-5.1) mmol/L Creatinine 0.58 L (0.66-1.25) mg/dL Glucose 118 H (74-99) mg/dL POC Glucose (mg/dL) 138 H (75-99) mg/dL Plasma Lactic Acid Calin (0.7-2.0) mmol/L Calcium 8.2 L (8.4-10.2) mg/dL Total Bilirubin <0.1 L (0.2-1.3) mg/dL AST 11 L (17-59) U/L ALT 15 L (21-72) U/L Total Protein 5.3 L (6.3-8.2) g/dL Albumin 2.5 L (3.5-5.0) g/dL Urine Protein (Negative) Urine WBC (0-5) /hpf Hyaline Casts (0-2) /lpf Urine Mucus (None) /hpf Microbiology - Last 24 Hours (Table) 10/25/17 15:09 Urine Culture - Preliminary Urine,Voided Assessment and Plan (1) Sepsis due to pneumonia Current Visit: Yes Status: Acute Code(s): J18.9 - PNEUMONIA, UNSPECIFIED ORGANISM; A41.9 - SEPSIS, UNSPECIFIED ORGANISM SNOMED Code(s): 89509575 (2) Bacterial pneumonia Current Visit: Yes Status: Acute Code(s): J15.9 - UNSPECIFIED BACTERIAL PNEUMONIA SNOMED Code(s): 11845739 (3) History of MRSA infection of lungs Current Visit: Yes Status: Acute Code(s): Z86.14 - PERSONAL HISTORY OF METHICILLIN RESIS STAPH INFECTION SNOMED Code(s): 726281640 (4) Diabetes Current Visit: No Status: Acute Code(s): E11.9 - TYPE 2 DIABETES MELLITUS WITHOUT COMPLICATIONS SNOMED Code(s): 85593139 (5) History of CVA (cerebrovascular accident) Current Visit: No Status: Acute Code(s): Z86.73 - PRSNL HX OF TIA (TIA), AND CEREB INFRC W/O RESID DEFICITS SNOMED Code(s): 298108807 Plan: 1. Sepsis secondary to pneumonia 2. Pneumonia, unlikely aspiration 3. History of MRSA pneumonia 4. Daibetes mellitus type II Sepsis is improving. Patient's hypotension has resolved, we will decrease IV fluid rate. Pneumonia unlikely aspiration considering the location, also patient states he has had multiple swallow studies and his tolerating current intake. We'll continue the current anabiotic regimen however due to his history of MRSA pneumonia while waiting for sputum culture results. Continue on glargine 20 units along with sliding scale insulin for diabetes.
[2017-10-26 12:04] LABS: Glucose,Whole Blood 148 mg/dL (75-99)
[2017-10-26] MEDS ORDERED: LEVOFLOXACIN 750MG-D5W PMX 750 MG in DEXTROSE/WATER 1 150ML.BAG IVPB SCH (16:00)
[2017-10-26 17:17] LABS: Glucose,Whole Blood 154 mg/dL (75-99)
[2017-10-26 21:04] LABS: Glucose,Whole Blood 107 mg/dL (75-99)
[2017-10-26] MEDS: ATORVASTATIN 20 MG TAB PO SCH (22:01)
[2017-10-26] MEDS: INSULIN DETEMIR 100 UNIT/ML 10 ML VIAL SQ SCH (22:02)
[2017-10-27] MEDS: CLINDAMYCIN 600 MG in DEXTROSE 5% IN WATER 50 ML IVPB SCH ×4 (00:05→08:07)
[2017-10-27 05:37] LABS: Glucose,Whole Blood 110 mg/dL (75-99)
[2017-10-27 06:32] LABS: HCT 34.9 % (39.0-53.0); HGB 11.5 gm/dL (13.0-17.5); MCH 30.6 pg (25.0-35.0); MCV 92.5 fL (80.0-100.0); Mean Platelet Volume 6.9; Platelet Count 208 k/uL (150-450); RBC 3.77 m/uL (4.30-5.90); RDW 13.3 % (11.5-15.5); WBC 3.9 k/uL (3.8-10.6)
[2017-10-27 06:43] LABS: Anion Gap 9 mmol/L; Blood Urea Nitrogen 4 mg/dL (9-20); Calcium 9.1 mg/dL (8.4-10.2); Carbon Dioxide 35 mmol/L (22-30); Chloride 97 mmol/L (98-107); Glucose 101 mg/dL (74-99); Potassium 4.4 mmol/L (3.5-5.1); Sodium 141 mmol/L (137-145)
[2017-10-27] MEDS: INSULIN ASPART 100 UNIT/ML 1 ML 10 ML VIAL SQ SCH ×2 (06:47→11:45)
[2017-10-27] MEDS: PANTOPRAZOLE 40 MG TABLET PO SCH (06:48)
[2017-10-27] MEDS: ENOXAPARIN 40 MG/0.4 ML SYRINGE SQ SCH (07:35)
[2017-10-27] MEDS: GABAPENTIN 300 MG CAP PO SCH (07:36)
[2017-10-27] MEDS: SODIUM CHLORIDE 0.9% 1,000 ML IV SCH (07:36)
[2017-10-27] MEDS: ASPIRIN 325 MG TAB PO SCH (07:36)
[2017-10-27] MEDS: ESCITALOPRAM 20 MG TAB PO SCH (07:36)
[2017-10-27] MEDS: FAMOTIDINE 20 MG TAB PO SCH (07:36)
[2017-10-27 08:16] VITALS: PULSE 89
[2017-10-27 11:40] VITALS: BP 144/82; RESP 20; TEMP 97
[2017-10-27 11:40] LABS: Glucose,Whole Blood 125 mg/dL (75-99)
--- NOTE | 2017-10-27 12:15 | P.DS ---
Providers Date of admission: 10/25/17 15:53 Expected date of discharge: 10/27/17 Attending physician: Sandra Rodriguez MD Primary care physician: Dasha Marsh MD - Discharge Diagnosis(es) (1) Sepsis due to pneumonia Current Visit: Yes Status: Acute (2) Bacterial pneumonia Current Visit: Yes Status: Acute (3) History of MRSA infection of lungs Current Visit: Yes Status: Acute (4) Diabetes Current Visit: No Status: Acute (5) History of CVA (cerebrovascular accident) Current Visit: No Status: Acute Hospital Course: 52-year-old male with a known history of prior CVA, diabetes mellitus, hypertension, dysphagia with PEG, who presented with a one to two-week history of productive cough, chills and a one-day history of lightheadedness, dizziness. Found to be hypotensive with systolic in the 60s. Chest x-ray showing lingula and left lower lobe infiltrate. Patient admitted for sepsis secondary to pneumonia. General: A/O x 3, NAD, Lying in bed comfortably HEENT: EOMI, MMM, atraumatic normocephalic Neck: Supple. No JVD, trachea midline CVS: Regular rate and rhythm. + S1/S2, no murmurs/gallops/rubs Respiratory: Bilateral air entry noted. Left base crackle no wheeze Abdomen: Soft, nontender, nondistended. Bowel sounds audible Extremities: No lower extremity edema. No clubbing or cyanosis Skin: No rash or skin change noted Psych: Without hallucinations, abnormal affect, or abnormal behaviors during the examination 1. Sepsis secondary to pneumonia 2. Pneumonia, unlikely aspiration 3. History of MRSA pneumonia 4. Daibetes mellitus type II Patient was started on levofloxacin and clindamycin with the intent to cover aspiration pneumonia, however patient reports that he has not been having issues with aspiration recently. Has had multiple outpatient swallow evals, tolerating current diet well along with PEG feedings. Patient responded well to antibiotics and boluses of fluids. Blood pressure is now normotensive. Patient relating without difficulty. Breathing without difficulty. Will discharge home on moxifloxacin to complete a course for pneumonia treatment, follow-up with primary care physician to follow. Plan - Discharge Summary Discharge Rx Participant: Yes New Discharge Prescriptions: New Moxifloxacin HCl 400 mg PO DAILY #6 tab Continue Insulin Glargine [Lantus] 20 unit SQ HS Simvastatin [Zocor] 40 mg PO HS Metoprolol Tartrate [Lopressor] 25 mg PO BID Gabapentin 600 mg PO TID Escitalopram [Lexapro] 20 mg PO DAILY Omeprazole 40 mg PO DAILY Aspirin 325 mg PO DAILY Insulin Aspart [NovoLOG] See Protocol SQ AC-TID Ranitidine HCl [Zantac] 300 mg PO DAILY Discharge Medication List Insulin Glargine [Lantus] 20 unit SQ HS 07/09/16 [History] Gabapentin 600 mg PO TID 10/13/16 [History] Metoprolol Tartrate [Lopressor] 25 mg PO BID 10/13/16 [History] Simvastatin [Zocor] 40 mg PO HS 10/13/16 [History] Escitalopram [Lexapro] 20 mg PO DAILY 06/13/17 [History] Omeprazole 40 mg PO DAILY 06/13/17 [History] Aspirin 325 mg PO DAILY 09/19/17 [History] Insulin Aspart [NovoLOG] See Protocol SQ AC-TID 09/19/17 [History] Ranitidine HCl [Zantac] 300 mg PO DAILY 10/25/17 [History] Moxifloxacin HCl 400 mg PO DAILY #6 tab 10/27/17 [Rx] Follow up Appointment(s)/Referral(s): Dasha Marsh MD [Primary Care Provider] - 1-2 days [facility], [REFERRING] - Discharge Disposition: HOME SELF-CARE
== END 2017-10-27 14:41 | disposition home or self-care (01) | DRG 871 ==
LOC: EC 14:41 → 6SEL 15:53
PROVIDERS: ADMIT Internal Medicine; ATTEND Internal Medicine
DX: A41.9 Sepsis, unspecified organism (principal); J15.9 Unspecified bacterial pneumonia; I11.9 Hypertensive heart disease without heart failure; E11.9 Type 2 diabetes mellitus without complications; E78.5 Hyperlipidemia, unspecified; K21.9 Gastro-esophageal reflux disease without esophagitis; K58.9 Irritable bowel syndrome, unspecified; Z79.4 Long term (current) use of insulin; Z79.82 Long term (current) use of aspirin; Z86.010 Personal history of colon polyps; Z86.14 Personal history of Methicillin resistant Staphylococcus aureus infection; Z86.711 Personal history of pulmonary embolism; Z86.718 Personal history of other venous thrombosis and embolism; Z86.73 Personal history of transient ischemic attack (TIA), and cerebral infarction without residual deficits; Z93.1 Gastrostomy status; Z98.1 Arthrodesis status; Z87.01 Personal history of pneumonia (recurrent); F32.9 Major depressive disorder, single episode, unspecified; Z79.899 Other long term (current) drug therapy
CPT/HCPCS: 36415; 71046; 80048; 80053; 81001; 83605; 83735; 84100; 84484; 85025; 85027; 85610; 85730; 87040; 87070; 87086; 87205; 87502; 93005; 94640; 96361; 96365; 99291

== ENCOUNTER → 2017-11-05 | Outpatient (CLI) | payer OTHER ==
--- NOTE | 2017-11-05 15:41 | XR ---
EXAMINATION TYPE: XR chest 2V DATE OF EXAM: 11/05/2017 COMPARISON: Chest x-ray from 10 days ago and older studies. HISTORY: Pneumonia progress study. TECHNIQUE: Frontal and lateral views of the chest are obtained. FINDINGS: There is improving left basilar opacity. Right lung remains clear. No pleural effusion or pneumothorax is present bilaterally. The cardiac silhouette size remains within normal limits. The osseous structures are intact. Cholecystectomy clips are now identified. IMPRESSION: Improving left basilar infiltrate. No new infiltrate is seen.
== END | disposition home or self-care (01) ==
LOC: RADXRMAIN 15:23
PROVIDERS: ATTEND Nurse Practitioner Adult Health
DX: R91.8 Other nonspecific abnormal finding of lung field (principal)
CPT/HCPCS: 71046

== ENCOUNTER 2017-12-25 04:42 | Inpatient (IN) | payer OTHER ==
[2017-12-25 04:58] LABS: Glucose,Whole Blood 227 mg/dL (75-99)
[2017-12-25] MEDS ORDERED: LEVOFLOXACIN 750MG-D5W PMX 750 MG in DEXTROSE/WATER 1 150ML.BAG IVPB STA (04:59)
[2017-12-25] MEDS ORDERED: SODIUM CHLORIDE 0.9% 1,000 ML IV STA (04:59)
[2017-12-25] MEDS ORDERED: ALBUTEROL NEBULIZED 2.5 MG/3 ML INHALATION STA (04:59)
[2017-12-25] MEDS ORDERED: PIPERACILLIN-TAZOBACTAM 3.375 GM in DEXTROSE/WATER 1 50ML.BAG IVPB STA (04:59)
--- NOTE | 2017-12-25 05:03 | ED ---
SOB HPI - General Chief Complaint: Shortness of Breath Stated Complaint: SOB Time Seen by Provider: 12/25/17 04:59 Source: patient Mode of arrival: ambulatory Limitations: no limitations - History of Present Illness Initial Comments: This patient is a 52-year-old man who presents to be evaluated for shortness of breath. He states that he has been having shortness of breath and cough since 6 PM when he was at work. He went home and try to rest. A couple of hours ago he began to feel like he was warm and then had some shaking chills. MD Complaint: shortness of breath, cough Onset/Timin -: hour(s) Consistency: constant Improves With: nothing Worsens With: nothing Known History Of: recurrent pneumonia Associated Symptoms: cough Treatments Prior to Arrival: none - Related Data Home Medications Medication Instructions Recorded Confirmed Insulin Glargine [Lantus] 20 unit SQ HS 07/09/16 10/25/17 Gabapentin 600 mg PO TID 10/13/16 10/25/17 Metoprolol Tartrate [Lopressor] 25 mg PO BID 10/13/16 10/25/17 Simvastatin [Zocor] 40 mg PO HS 10/13/16 10/25/17 Escitalopram [Lexapro] 20 mg PO DAILY 06/13/17 10/25/17 Omeprazole 40 mg PO DAILY 06/13/17 10/25/17 Aspirin 325 mg PO DAILY 09/19/17 10/25/17 Insulin Aspart [NovoLOG] See Protocol SQ AC-TID 09/19/17 10/25/17 Ranitidine HCl [Zantac] 300 mg PO DAILY 10/25/17 10/25/17 Previous Rx's Medication Instructions Recorded Moxifloxacin HCl 400 mg PO DAILY #6 tab 10/27/17 Allergies Allergy/AdvReac Type Severity Reaction Status Date / Time vancomycin Allergy kidneys Verified 12/25/17 04:46 shut down venom-honey bee Allergy Anaphylaxis Verified 12/25/17 04:46 [bee venom (honey bee)] Review of Systems ROS Statement: Those systems with pertinent positive or pertinent negative responses have been documented in the HPI. ROS Other: All systems not noted in ROS Statement are negative. Constitutional: Reports: chills Respiratory: Reports: cough, dyspnea Cardiovascular: Reports: chest pain, palpitations. Denies: edema, syncope Gastrointestinal: Denies: abdominal pain, vomiting, diarrhea Genitourinary: Denies: dysuria, hematuria Musculoskeletal: Denies: back pain Skin: Denies: rash Neurological: Denies: headache, weakness, numbness Psychiatric: Reports: anxiety Past Medical History Past Medical History: CVA/TIA, Diabetes Mellitus, Deep Vein Thrombosis (DVT), GERD/Reflux, Hyperlipidemia, Hypertension, Musculoskeletal Disorder, Pulmonary Embolus (PE), Syncope Additional Past Medical History / Comment(s): states "unable to pass barium swallow but able to swallow some foods and fluids." LUMBAR STENOSIS. HX DVT LT CALF, THEN PE. HX IBS. COLON POLYPS, hypertensive cardio vascular disease with left ventricular hypertrophy. cataracts. rt side of body temperature intolerance History of Any Multi-Drug Resistant Organisms: MRSA Date of last positivie culture/infection: (per patient: culture done at [facility]) MDRO Source:: Sputum Past Surgical History: Appendectomy, Cholecystectomy Additional Past Surgical History / Comment(s): EXPLORATORY LAPAROTOMY, FUSION L4 -L5, colonoscopy, PEG tube. Past Anesthesia/Blood Transfusion Reactions: No Reported Reaction Past Psychological History: Anxiety Past Alcohol Use History: None Reported - Past Family History Father History Unknown: Yes Family Medical History: No Reported History Mother Family Medical History: Cancer, Deep Vein Thrombosis (DVT) General Exam Limitations: no limitations General appearance: alert, in distress Head exam: Present: atraumatic, normocephalic Eye exam: Present: normal appearance ENT exam: Present: mucous membranes dry Neck exam: Present: normal inspection, full ROM Respiratory exam: Present: respiratory distress, rales ({). Absent: wheezes, rhonchi, stridor Cardiovascular Exam: Present: normal rhythm, tachycardia, normal heart sounds. Absent: systolic murmur, diastolic murmur, rubs, gallop GI/Abdominal exam: Present: soft, other (PEG tube in the left upper quadrant, normal in appearance). Absent: distended, tenderness, guarding, rebound, rigid Extremities exam: Present: normal inspection, normal capillary refill. Absent: pedal edema, calf tenderness Back exam: Present: normal inspection. Absent: CVA tenderness (R), CVA tenderness (L) Neurological exam: Present: alert Psychiatric exam: Present: anxious Skin exam: Present: warm, dry, intact, normal color. Absent: rash Course Vital Signs 12/25/17 12/25/17 12/25/17 04:42 05:16 05:23 Temperature 99.7 F H Pulse Rate 164 H 144 H 142 H Respiratory 20 Rate Blood Pressure 106/60 O2 Sat by Pulse 80 L Oximetry 12/25/17 12/25/17 12/25/17 05:32 06:45 07:00 Temperature Pulse Rate 139 H 130 H 122 H Respiratory 20 20 18 Rate Blood Pressure 127/87 127/87 101/50 O2 Sat by Pulse 99 97 95 Oximetry 12/25/17 12/25/17 12/25/17 07:34 07:47 07:49 Temperature Pulse Rate 120 H 120 H Respiratory Rate Blood Pressure O2 Sat by Pulse 98 Oximetry 12/25/17 08:05 Temperature Pulse Rate 116 H Respiratory 18 Rate Blood Pressure 87/51 O2 Sat by Pulse 100 Oximetry Medical Decision Making - Lab Data Result diagrams: 12/25/17 04:50 12/25/17 04:50 Lab Results 12/25/17 12/25/17 12/25/17 Range/Units 04:50 04:50 04:50 WBC 12.9 H (3.8-10.6) k/uL RBC 4.85 (4.30-5.90) m/uL Hgb 14.5 D (13.0-17.5) gm/dL Hct 44.8 (39.0-53.0) % MCV 92.6 (80.0-100.0) fL MCH 29.8 (25.0-35.0) pg MCHC 32.2 (31.0-37.0) g/dL RDW 13.5 (11.5-15.5) % Plt Count 323 (150-450) k/uL Neutrophils % 90 % Lymphocytes % 6 % Monocytes % 3 % Eosinophils % 0 % Basophils % 0 % Neutrophils # 11.6 H (1.3-7.7) k/uL Lymphocytes # 0.8 L (1.0-4.8) k/uL Monocytes # 0.4 (0-1.0) k/uL Eosinophils # 0.1 (0-0.7) k/uL Basophils # 0.0 (0-0.2) k/uL PT (9.0-12.0) sec INR (<1.2) APTT (22.0-30.0) sec D-Dimer (<0.60) mg/L FEU Sample Site ABG pH (7.35-7.45) ABG pCO2 (35-45) mmHg ABG pO2 (83-108) mmHg ABG HCO3 (21-25) mmol/L ABG Total CO2 (19-24) mmol/L ABG O2 Saturation (94-97) % ABG Base Excess mmol/L Jose Angel Test FiO2 % Sodium 138 (137-145) mmol/L Potassium 4.1 (3.5-5.1) mmol/L Chloride 96 L (98-107) mmol/L Carbon Dioxide 30 (22-30) mmol/L Anion Gap 12 mmol/L BUN 14 (9-20) mg/dL Creatinine 0.70 (0.66-1.25) mg/dL Est GFR (CKD-EPI)AfAm >90 (>60 ml/min/1.73 sqM) Est GFR (CKD-EPI)NonAf >90 (>60 ml/min/1.73 sqM) Glucose 248 H (74-99) mg/dL POC Glucose (mg/dL) (75-99) mg/dL POC Glu Warp Knitting Machine Operator ID Plasma Lactic Acid Calin (0.7-2.0) mmol/L Calcium 8.9 (8.4-10.2) mg/dL Magnesium 1.4 L (1.6-2.3) mg/dL Total Bilirubin 0.6 (0.2-1.3) mg/dL AST 17 (17-59) U/L ALT 26 (21-72) U/L Alkaline Phosphatase 107 (38-126) U/L Total Creatine Kinase 35 L (55-170) U/L CK-MB (CK-2) 0.9 (0.0-2.4) ng/mL CK-MB (CK-2) Rel Index 2.6 Troponin I <0.012 (0.000-0.034) ng/mL NT-Pro-B Natriuret Pep pg/mL Total Protein 7.2 (6.3-8.2) g/dL Albumin 3.8 (3.5-5.0) g/dL 12/25/17 12/25/17 12/25/17 Range/Units 04:50 04:50 04:50 WBC (3.8-10.6) k/uL RBC (4.30-5.90) m/uL Hgb (13.0-17.5) gm/dL Hct (39.0-53.0) % MCV (80.0-100.0) fL MCH (25.0-35.0) pg MCHC (31.0-37.0) g/dL RDW (11.5-15.5) % Plt Count (150-450) k/uL Neutrophils % % Lymphocytes % % Monocytes % % Eosinophils % % Basophils % % Neutrophils # (1.3-7.7) k/uL Lymphocytes # (1.0-4.8) k/uL Monocytes # (0-1.0) k/uL Eosinophils # (0-0.7) k/uL Basophils # (0-0.2) k/uL PT 9.8 (9.0-12.0) sec INR 1.0 (<1.2) APTT 22.5 (22.0-30.0) sec D-Dimer 0.97 H (<0.60) mg/L FEU Sample Site ABG pH (7.35-7.45) ABG pCO2 (35-45) mmHg ABG pO2 (83-108) mmHg ABG HCO3 (21-25) mmol/L ABG Total CO2 (19-24) mmol/L ABG O2 Saturation (94-97) % ABG Base Excess mmol/L Jose Angel Test FiO2 % Sodium (137-145) mmol/L Potassium (3.5-5.1) mmol/L Chloride (98-107) mmol/L Carbon Dioxide (22-30) mmol/L Anion Gap mmol/L BUN (9-20) mg/dL Creatinine (0.66-1.25) mg/dL Est GFR (CKD-EPI)AfAm (>60 ml/min/1.73 sqM) Est GFR (CKD-EPI)NonAf (>60 ml/min/1.73 sqM) Glucose (74-99) mg/dL POC Glucose (mg/dL) (75-99) mg/dL POC Glu Warp Knitting Machine Operator ID Plasma Lactic Acid Calin 2.9 H* (0.7-2.0) mmol/L Calcium (8.4-10.2) mg/dL Magnesium (1.6-2.3) mg/dL Total Bilirubin (0.2-1.3) mg/dL AST (17-59) U/L ALT (21-72) U/L Alkaline Phosphatase (38-126) U/L Total Creatine Kinase (55-170) U/L CK-MB (CK-2) (0.0-2.4) ng/mL CK-MB (CK-2) Rel Index Troponin I (0.000-0.034) ng/mL NT-Pro-B Natriuret Pep 53 pg/mL Total Protein (6.3-8.2) g/dL Albumin (3.5-5.0) g/dL 12/25/17 12/25/17 Range/Units 04:56 05:15 WBC (3.8-10.6) k/uL RBC (4.30-5.90) m/uL Hgb (13.0-17.5) gm/dL Hct (39.0-53.0) % MCV (80.0-100.0) fL MCH (25.0-35.0) pg MCHC (31.0-37.0) g/dL RDW (11.5-15.5) % Plt Count (150-450) k/uL Neutrophils % % Lymphocytes % % Monocytes % % Eosinophils % % Basophils % % Neutrophils # (1.3-7.7) k/uL Lymphocytes # (1.0-4.8) k/uL Monocytes # (0-1.0) k/uL Eosinophils # (0-0.7) k/uL Basophils # (0-0.2) k/uL PT (9.0-12.0) sec INR (<1.2) APTT (22.0-30.0) sec D-Dimer (<0.60) mg/L FEU Sample Site lbrac ABG pH 7.37 (7.35-7.45) ABG pCO2 50 H (35-45) mmHg ABG pO2 65 L (83-108) mmHg ABG HCO3 28 H (21-25) mmol/L ABG Total CO2 18 L (19-24) mmol/L ABG O2 Saturation 92.0 L (94-97) % ABG Base Excess 2.6 mmol/L Jose Angel Test yes FiO2 100 % Sodium (137-145) mmol/L Potassium (3.5-5.1) mmol/L Chloride (98-107) mmol/L Carbon Dioxide (22-30) mmol/L Anion Gap mmol/L BUN (9-20) mg/dL Creatinine (0.66-1.25) mg/dL Est GFR (CKD-EPI)AfAm (>60 ml/min/1.73 sqM) Est GFR (CKD-EPI)NonAf (>60 ml/min/1.73 sqM) Glucose (74-99) mg/dL POC Glucose (mg/dL) 227 H (75-99) mg/dL POC Glu Warp Knitting Machine Operator ID Jesse Lozoya Plasma Lactic Acid Calin (0.7-2.0) mmol/L Calcium (8.4-10.2) mg/dL Magnesium (1.6-2.3) mg/dL Total Bilirubin (0.2-1.3) mg/dL AST (17-59) U/L ALT (21-72) U/L Alkaline Phosphatase (38-126) U/L Total Creatine Kinase (55-170) U/L CK-MB (CK-2) (0.0-2.4) ng/mL CK-MB (CK-2) Rel Index Troponin I (0.000-0.034) ng/mL NT-Pro-B Natriuret Pep pg/mL Total Protein (6.3-8.2) g/dL Albumin (3.5-5.0) g/dL - EKG Data -: EKG Interpreted by Me EKG shows normal: sinus rhythm, axis (Normal), intervals (Normal), QRS complexes (Normal), ST-T waves (Possible lateral ischemia) Rate: tachycardia (Rate approximately 160 bpm) Interpretation: other Disposition Clinical Impression: Pneumonia, Hypoxemia, Hyperglycemia, Sepsis, Hypomagnesemia Disposition: ADMITTED IP TO THIS HOSP Condition: Fair
[2017-12-25 05:19] LABS: ABG Base Excess 2.6 mmol/L; ABG HCO3 28 mmol/L (21-25); ABG PCO2 50 mmHg (35-45); ABG PH 7.37 (7.35-7.45); ABG PO2 65 mmHg (83-108); ABG TCO2 18 mmol/L (19-24)
[2017-12-25 05:20] LABS: ALT 26 U/L (21-72); AST 17 U/L (17-59); Albumin 3.8 g/dL (3.5-5.0); Alkaline Phosphatase 107 U/L (38-126); Anion Gap 12 mmol/L; Blood Urea Nitrogen 14 mg/dL (9-20); Calcium 8.9 mg/dL (8.4-10.2); Carbon Dioxide 30 mmol/L (22-30); Chloride 96 mmol/L (98-107); Glucose 248 mg/dL (74-99); Magnesium 1.4 mg/dL (1.6-2.3); Potassium 4.1 mmol/L (3.5-5.1); Sodium 138 mmol/L (137-145); Total Bilirubin 0.6 mg/dL (0.2-1.3); Total Protein 7.2 g/dL (6.3-8.2)
[2017-12-25 05:23] LABS: Creatine Kinase 35 U/L (55-170)
[2017-12-25 05:24] LABS: Partial Thromboplastin Time 22.5 sec (22.0-30.0); Prothrombin Time 9.8 sec (9.0-12.0)
[2017-12-25 05:25] LABS: Basophils % (A) 0 %; Eosinophils # (A) 0.1 k/uL (0-0.7); Eosinophils % (A) 0 %; HCT 44.8 % (39.0-53.0); Lymphocytes # (A) 0.8 k/uL (1.0-4.8); Lymphocytes % (A) 6 %; MCH 29.8 pg (25.0-35.0); MCHC 32.2 g/dL (31.0-37.0); MCV 92.6 fL (80.0-100.0); Mean Platelet Volume 6.8; Monocytes # (A) 0.4 k/uL (0-1.0); Monocytes % (A) 3 %; Neutrophils # (A) 11.6 k/uL (1.3-7.7); Neutrophils % (A) 90 %; Platelet Count 323 k/uL (150-450); RBC 4.85 m/uL (4.30-5.90); RDW 13.5 % (11.5-15.5); WBC 12.9 k/uL (3.8-10.6)
[2017-12-25 05:33] LABS: HGB 14.5 gm/dL (13.0-17.5)
[2017-12-25 05:36] LABS: Creatine Kinase MB 0.9 ng/mL (0.0-2.4); Troponin I <0.012 ng/mL (0.000-0.034)
[2017-12-25 05:55] LABS: D-Dimer 0.97 mg/L FEU (<0.60)
--- NOTE | 2017-12-25 06:12 | XR ---
EXAM: XR Chest, 2 Views CLINICAL HISTORY: ITS.REASON XR Reason: difficulty breathing TECHNIQUE: Frontal and lateral views of the chest. COMPARISON: November 05, 2017 FINDINGS: There is been interval development of infiltrates in the left lower lobe and right middle. No evidence for pleural effusions. Findings suspicious for an infectious pneumonic process IMPRESSION: Interval development of infiltrates in both right middle and left lower lobe, new when compared to the prior study
[2017-12-25] MEDS ORDERED: IPRATROPIUM-ALBUTEROL 3 ML NEB INHALATION PRN (06:25)
[2017-12-25] MEDS ORDERED: PNEUMONIA PROTOCOL UTILIZED 1 EACH MISC PO PRN (06:25)
[2017-12-25] MEDS ORDERED: MAGNESIUM SULFATE-D5W PMX 1 GM in DEXTROSE/WATER 1 100ML.BAG IVPB ONE (06:28)
[2017-12-25] MEDS: SODIUM CHLORIDE 0.9% 1,000 ML IV SCH ×3 (07:17→20:04)
--- NOTE | 2017-12-25 07:35 | CT ---
EXAMINATION TYPE: CT chest angio for PE DATE OF EXAM: 12/25/2017 COMPARISON: CT chest July 04, 2017. Chest x-ray earlier today HISTORY: SOB CT DLP: 348.9 mGycm. Automated Exposure Control for Dose Reduction was Utilized. CONTRAST: CTA scan of the thorax is performed with IV Contrast, patient injected with 63 mL of Isovue 370, pulm onary embolism protocol. MIP Images are created on CT scanner and reviewed. FINDINGS: LUNGS: There are new reticulonodular opacities seen bilaterally involving upper and lower lungs with areas of more bob irregular consolidation seen scattered throughout the medial right upper lobe, vasquez perior left upper lobe, and more dense consolidation involving the medial right lower lobe with addit ional scattered areas of involvement in the left lower lobe. More irregular atelectasis and/or consol idation in the lingula and right middle lobe is seen centrally new or more prominent from prior study . MEDIASTINUM: There is suboptimal bolus with most dense contrast seen in SVC and heterogeneous poor op acification of right ventricle and pulmonary outflow tract, hyperdense contrast is noted in left hear t, exam is essentially nondiagnostic for pulmonary embolism. No cardiomegaly is seen. There are stabl e tiny pericardial effusion. There is dilated fluid-filled esophagus redemonstrated extending to surg ical changes just below diaphragmatic hiatus. Presumed Chin fundoplication surgery. PEG tube is not ed. Left atrium remains small in caliber prominent fat in the interarterial septum noted. No suspicio us thoracic adenopathy is seen. OTHER: Cholecystectomy clips are seen. Moderate multilevel spurring and spine is present. Bilateral g ynecomastia is redemonstrated. IMPRESSION: 1. Suboptimal study, essentially nondiagnostic for pulmonary embolism. 2. New multifocal infiltrates bilaterally involving all lobes worrisome for multifocal pneumonia, cor relate clinically. 3. Persistent diffuse dilated esophagus, new PEG tube noted.
[2017-12-25] MEDS ORDERED: VANCOMYCIN IV PER PHARMACY 1 EACH MISC MISCELLANE PRN (07:39)
[2017-12-25] MEDS ORDERED: ALBUTEROL NEBULIZED 2.5 MG/3 ML INHALATION SCH (08:00)
[2017-12-25] MEDS: INSULIN ASPART 100 UNIT/ML 1 ML 10 ML VIAL SQ SCH ×4 (08:13→21:42)
[2017-12-25] MEDS ORDERED: VANCOMYCIN 1,750 MG in SODIUM CHLORIDE 0.9% 250 ML IVPB ONE (09:00)
[2017-12-25 09:57] LABS: Appearance,Urine Clear (Clear); Bilirubin,Urine Negative (Negative); Blood,Urine Negative (Negative); Color,Urine Yellow; Glucose,Urine (UA) Trace (Negative); Ketones,Urine Negative (Negative); Leukocyte Esterase,Urine Negative (Negative); Nitrite,Urine Negative (Negative); PH, Urine 5.5 (5.0-8.0); Protein,Urine Trace (Negative); Urobilinogen,Urine <2.0 mg/dL (<2.0)
[2017-12-25] MEDS: SODIUM CHLORIDE 0.9% 500 ML IV SCH (10:11)
[2017-12-25] MEDS: ENOXAPARIN 40 MG/0.4 ML SYRINGE SQ SCH (10:12)
--- NOTE | 2017-12-25 10:36 | P.HPIM ---
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 The patient did mention some chest pressure which is now relieved, he denied any nausea vomiting abdominal pain. The patient does have a PEG tube in place and has previously been recommended a diet by speech therapy of water and apple sauce, despite these recommendations the patient continues to be to eat mashed potatoes , soups and crackers. Review of the records indicate the patient was here proximally 2 months ago for similar symptoms and was noted at that time to have aspiration pneumonia. In the ER the patient was noted to have a complete workup with a positive sepsis screen and he was subsequently started on empiric IV antibiotics with Levaquin and Zosyn and was placed on a nonrebreather due to hypoxia, and he is given IV fluids and recommended for admission for sepsis. Notable labs leukocytosis of 13, ABG PaO2 65, serum lactate 2.9. Cardiac troponins and NT proBNP negative. EKG with sinus tachycardia with PVCs Review of Systems All other 12 point review of systems are negative except per HPI Past Medical History Past Medical History: CVA/TIA, Diabetes Mellitus, Deep Vein Thrombosis (DVT), GERD/Reflux, Hyperlipidemia, Hypertension, Musculoskeletal Disorder, Pulmonary Embolus (PE), Syncope Additional Past Medical History / Comment(s): states "unable to pass barium swallow but able to swallow some foods and fluids." LUMBAR STENOSIS. HX DVT LT CALF, THEN PE. HX IBS. COLON POLYPS, hypertensive cardio vascular disease with left ventricular hypertrophy. cataracts. rt side of body temperature intolerance History of Any Multi-Drug Resistant Organisms: MRSA Date of last positivie culture/infection: (per patient: culture done at [facility]) MDRO Source:: Sputum Past Surgical History: Appendectomy, Cholecystectomy Additional Past Surgical History / Comment(s): EXPLORATORY LAPAROTOMY, FUSION L4 -L5, colonoscopy, PEG tube. Past Anesthesia/Blood Transfusion Reactions: No Reported Reaction Past Psychological History: Anxiety Past Alcohol Use History: None Reported - Past Family History Father History Unknown: Yes Family Medical History: No Reported History Mother Family Medical History: Cancer, Deep Vein Thrombosis (DVT) Medications and Allergies Home Medications Medication Instructions Recorded Confirmed Type Insulin Glargine [Lantus] 15 unit SQ HS 07/09/16 12/25/17 History Gabapentin 600 mg PO TID 10/13/16 12/25/17 History Metoprolol Tartrate [Lopressor] 25 mg PO BID 10/13/16 12/25/17 History Simvastatin [Zocor] 40 mg PO HS 10/13/16 12/25/17 History Escitalopram [Lexapro] 20 mg PO DAILY 06/13/17 12/25/17 History Omeprazole 40 mg PO BID 06/13/17 12/25/17 History Aspirin 325 mg PO DAILY 09/19/17 12/25/17 History Insulin Aspart [NovoLOG] See Protocol SQ AC-TID 09/19/17 12/25/17 History Ranitidine HCl [Zantac] 300 mg PO DAILY 10/25/17 12/25/17 History Albuterol Inhaler [Ventolin Hfa 2 puff INHALATION RT-Q4H PRN 12/25/17 12/25/17 History Inhaler] Amitriptyline HCl [Elavil] 25 mg PO BID 12/25/17 12/25/17 History EPINEPHrine (Auto Inject) [Epipen] 0.3 mg IM ONCE PRN 12/25/17 12/25/17 History Fluticasone Nasal [place] [Flonase 2 spr EA NOSTRIL DAILY 12/25/17 12/25/17 History Nasal [place]] Loratadine [Claritin] 10 mg PO DAILY 12/25/17 12/25/17 History Allergies Allergy/AdvReac Type Severity Reaction Status Date / Time vancomycin Allergy kidneys Verified 12/25/17 09:11 shut down venom-honey bee Allergy Anaphylaxis Verified 12/25/17 09:11 [bee venom (honey bee)] Physical Exam Vitals: Vital Signs Temp Pulse Pulse Resp BP BP BP 12/25/17 08:36 99 22 12/25/17 08:23 98.1 F 99 20 83/48 87/49 12/25/17 08:20 96 22 83/48 87/49 12/25/17 08:05 116 H 18 87/51 12/25/17 07:49 12/25/17 07:47 120 H 12/25/17 07:34 120 H 12/25/17 07:00 122 H 18 101/50 12/25/17 06:45 130 H 20 127/87 12/25/17 05:32 139 H 20 127/87 12/25/17 05:23 142 H 12/25/17 05:16 144 H 12/25/17 04:42 99.7 F H 164 H 20 106/60 Pulse Ox 12/25/17 08:36 12/25/17 08:23 96 12/25/17 08:20 95 12/25/17 08:05 100 12/25/17 07:49 98 12/25/17 07:47 12/25/17 07:34 12/25/17 07:00 95 12/25/17 06:45 97 12/25/17 05:32 99 12/25/17 05:23 12/25/17 05:16 12/25/17 04:42 80 L Intake and Output 12/24/17 12/25/17 12/25/17 22:59 06:59 14:59 Other: Voiding Method Toilet Urinal Weight 88.904 kg 88.904 kg Constitutional: No acute distress, conversant, pleasant Eyes: Anicteric sclerae, moist conjunctiva, no lid-lag, PERRLA ENMT: NC/AT,Oropharynx clear, no erythema, exudates Neck:Supple, FROM, no masses, or JVD, No carotid bruits; No thyromegaly Lungs: Right middle and lower lobe Rales noted Clear to percussion, Normal respiratory effort, no accessory muscle use on 4 L nasal cannula Cardiovascular: Tachycardic Heart regular in rate and rhythm, No murmurs, gallops, or rubs no peripheral edema Abdominal: Soft Nontender, nom distended, no guarding, no rebound or rigidity, Normoactive bowel sounds No hepatomegaly, No splenomegaly, No palpable mass No abdominal wall hernia noted Skin: Normal temperature, tone, texture, turgor, No induration No subcutaneous nodules, No rash, lesions, No ulcers Extremities:No digital cyanosis No clubbing, Pedal pulses intact and symmetrical Radial pulses intact and symmetrical Normal gait and station, No calf tenderness, + normal capillary refill Psychiatric: Alert and oriented to person, place and time, Appropriate affect Intact judgement Neuro: Muscles Strength 5/5 in all 4 extremities, Sensation to light touch grossly present throughout, Cranial nerves II-XII grossly intact. No focal sensory deficits Results CBC & Chem 7: 12/25/17 04:50 12/25/17 04:50 Labs: Abnormal Lab Results - Last 24 Hours (Table) 12/25/17 12/25/17 12/25/17 Range/Units 04:50 04:50 04:50 WBC 12.9 H (3.8-10.6) k/uL Neutrophils # 11.6 H (1.3-7.7) k/uL Lymphocytes # 0.8 L (1.0-4.8) k/uL D-Dimer (<0.60) mg/L FEU ABG pCO2 (35-45) mmHg ABG pO2 (83-108) mmHg ABG HCO3 (21-25) mmol/L ABG Total CO2 (19-24) mmol/L ABG O2 Saturation (94-97) % Chloride 96 L (98-107) mmol/L Glucose 248 H (74-99) mg/dL POC Glucose (mg/dL) (75-99) mg/dL Plasma Lactic Acid Calin (0.7-2.0) mmol/L Magnesium 1.4 L (1.6-2.3) mg/dL Total Creatine Kinase 35 L (55-170) U/L Ur Specific [place] (1.001-1.035) Urine Protein (Negative) Urine Glucose (UA) (Negative) 12/25/17 12/25/17 12/25/17 Range/Units 04:50 04:50 04:56 WBC (3.8-10.6) k/uL Neutrophils # (1.3-7.7) k/uL Lymphocytes # (1.0-4.8) k/uL D-Dimer 0.97 H (<0.60) mg/L FEU ABG pCO2 (35-45) mmHg ABG pO2 (83-108) mmHg ABG HCO3 (21-25) mmol/L ABG Total CO2 (19-24) mmol/L ABG O2 Saturation (94-97) % Chloride (98-107) mmol/L Glucose (74-99) mg/dL POC Glucose (mg/dL) 227 H (75-99) mg/dL Plasma Lactic Acid Calin 2.9 H* (0.7-2.0) mmol/L Magnesium (1.6-2.3) mg/dL Total Creatine Kinase (55-170) U/L Ur Specific [place] (1.001-1.035) Urine Protein (Negative) Urine Glucose (UA) (Negative) 12/25/17 12/25/17 Range/Units 05:15 08:50 WBC (3.8-10.6) k/uL Neutrophils # (1.3-7.7) k/uL Lymphocytes # (1.0-4.8) k/uL D-Dimer (<0.60) mg/L FEU ABG pCO2 50 H (35-45) mmHg ABG pO2 65 L (83-108) mmHg ABG HCO3 28 H (21-25) mmol/L ABG Total CO2 18 L (19-24) mmol/L ABG O2 Saturation 92.0 L (94-97) % Chloride (98-107) mmol/L Glucose (74-99) mg/dL POC Glucose (mg/dL) (75-99) mg/dL Plasma Lactic Acid Calin (0.7-2.0) mmol/L Magnesium (1.6-2.3) mg/dL Total Creatine Kinase (55-170) U/L Ur Specific [place] 1.050 H (1.001-1.035) Urine Protein Trace H (Negative) Urine Glucose (UA) Trace H (Negative) CT scan - chest: other (Suboptimal study for PE, multifocal pneumonia, persistent diffuse dilated esophagus with a new PEG tube) Thrombosis Risk Factor Assmnt - Choose All That Apply Each Factor Represents 1 point: Age 41-60 years, Obesity (BMI >25), Serious lung disease incl. pneumonia (< 1month) Other Risk Factors: No Other congenital or acquired thrombophilia - If yes, enter type in comment: No Thrombosis Risk Factor Assessment Total Risk Factor Score: 3 Thrombosis Risk Factor Assessment Level: Moderate Risk Assessment and Plan (1) Acute respiratory failure with hypoxemia Current Visit: Yes Status: Acute Code(s): J96.01 - ACUTE RESPIRATORY FAILURE WITH HYPOXIA SNOMED Code(s): 733620535 (2) Severe sepsis Current Visit: No Status: Acute Code(s): A41.9 - SEPSIS, UNSPECIFIED ORGANISM; R65.20 - SEVERE SEPSIS WITHOUT SEPTIC SHOCK SNOMED Code(s): 15419365 (3) Type 2 diabetes mellitus with hyperglycemia Current Visit: Yes Status: Acute Code(s): E11.65 - TYPE 2 DIABETES MELLITUS WITH HYPERGLYCEMIA SNOMED Code(s): 696233191627608 (4) Hypomagnesemia Current Visit: Yes Status: Acute Code(s): E83.42 - HYPOMAGNESEMIA SNOMED Code(s): 033573796 (5) Multifocal pneumonia Current Visit: Yes Status: Acute Code(s): J18.9 - PNEUMONIA, UNSPECIFIED ORGANISM SNOMED Code(s): 897086593 Plan: The patient is a 52-year-old male that is admitted to telemetry anticipated greater than 2 midnight stay with acute respiratory failure with hypoxemia and severe sepsis secondary to a multifocal pneumonia with history of MRSA patient is started on empiric IV antibiotics with vancomycin and Zosyn and Levaquin, patient with noted elevated serum lactate level, given aggressive IV fluid bolus at 40 cc/kg per protocol and is continued on nonrebreather, scheduled and when necessary bronchodilator breathing treatments with plans to consult pulmonology and ID. Patient does have a history of severe pharyngeal phase dysphagia and complete swallow secondary to previous CVA and has had aspiration events previously, unsure if this current pneumonia is aspiration related as it appears to be multifocal. Blood and urine cultures have also been ordered. The patient is continued on an home insulin regimen along with correctional scale insulin with Accu-Cheks and his magnesium has been replaced. The patient is placed on GI and DVT prophylaxis with Protonix and Lovenox respectively. Appreciate consultants recommendations continue to follow this patient's clinical course
[2017-12-25] MEDS: IPRATROPIUM-ALBUTEROL 3 ML NEB INHALATION SCH ×4 (10:47→20:15)
[2017-12-25 11:17] LABS: Glucose,Whole Blood 246 mg/dL (75-99)
--- NOTE | 2017-12-25 12:38 | P.CNPUL ---
History of Present Illness Consult date: 12/25/17 Reason for consult: dyspnea, pneumonia History of present illness: A 52-year-old male patient known to me from previous hospitalization as the patient has had a previous brainstem stroke and has suffered from chronic dysphagia and has been hospitalized in the past for bouts of respiratory tract infection/pneumonia/aspiration. The patient was last seen by our services in July 2017. At that time the patient had a bibasilar opacity and persistent right upper lobe patchy opacity consistent with pneumonia. The patient was still having swallowing difficulties and dysphagia. As mentioned he has had a previous left-sided brainstem CVA leading to right-sided weakness involving the face upper and lower extremity and difficulty with speech and swallow. The patient had a PEG tube inserted for chronic dysphagia and ultimately the PEG tube was removed as the patient was improving and his swallow process is also improved. Subsequently was seen the general surgeon, Dr. Michele harvey for symptoms of dysphagia and the patient had a Davis fundoplication on 2016. His postop esophagram showed no evidence of any leak and the patient had no significant obstruction. The patient had continued to have symptoms of dysphagia and further evaluation by an EGD that was done on 05/11/2017 showed that the patient had some narrowing in the distal esophagus and the patient underwent balloon dilatation of the esophagus. The most recent swallow evaluation was done on 06/04/2017 and the patient had some spasms/stenosis of the proximal esophagus without evidence of any aspiration or penetration. Based on his ongoing symptoms of dysphagia and the risk of aspiration, a PEG tube was reinserted and currently the patient utilizing PEG tube and oral feeding. He takes 50% of his oral intake for the PEG tube. The patient utilizing Jevity and he uses around 5 cans of Jevity on a daily basis and he bolus feeds through his PEG tube. 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 Note that his last bout of pneumonia was in October 2017. At that time the patient presented with productive cough and hypotension and he had a left lower lobe pneumonia for which she was treated and the patient was discharged home on Avelox 400 mg by mouth daily. During this current admission, the patient acute decompensation of his history status. Within the past 24-48 hours he started having increased cough and congestion and he was producing purulent material. He was having also heaviness in his chest. The workup in the emergency included a CT angios the chest that showed multifocal infiltrates bilaterally involving the lower lobes consistent with multifocal pneumonia. There was still persistent diffuse dilatation of the esophagus. The PEG tube was also seen and it was in place. Based on all this, the patient was started on accommodation of Zosyn and Levaquin and vancomycin. His white cell count is at 12.9. His blood pressure with a pH of 7.37 with a pCO2 of 50 and pO2 of 65 his lactic acid level was at 2.9. His blood sugar was at 246. Urinalysis was negative. Review of Systems All systems: negative Constitutional: Reports fatigue, Reports fever, Reports weakness Eyes: denies blurred vision, denies bulging eye, denies decreased vision Ears: deny: decreased hearing, ear discharge, earache, tinnitus Ears, nose, mouth and throat: Denies headache, Denies sore throat Cardiovascular: Reports dyspnea on exertion Respiratory: Reports cough, Reports dyspnea Gastrointestinal: Reports as per HPI, Reports heartburn, Reports nausea Genitourinary: Reports as per HPI Musculoskeletal: Denies myalgias Musculoskeletal: absent: ankle pain, ankle stiffness, ankle swelling Integumentary: Reports as per HPI Neurological: Denies numbness, Denies weakness Psychiatric: Reports as per HPI Endocrine: Reports as per HPI Hematologic/Lymphatic: Reports as per HPI Allergic/Immunologic: Reports as per HPI Past Medical History Past Medical History: CVA/TIA, Diabetes Mellitus, Deep Vein Thrombosis (DVT), GERD/Reflux, Hyperlipidemia, Hypertension, Musculoskeletal Disorder, Pulmonary Embolus (PE), Syncope Additional Past Medical History / Comment(s): Left sided brain stem CVA in June 2016 with residual right-sided weakness, chronic dysphagia, chronic aspiration pneumonia and previous PEG tube insertion, history of DVT and pulmonary embolism, hypertension, hyperlipidemia, lumbar stenosis, history of DVT of the left lower extremity, IBS, colonic polyps, hypertension, hypertensive heart disease left Ventricular hypertrophy, cataracts, History of Any Multi-Drug Resistant Organisms: MRSA Date of last positivie culture/infection: (per patient: culture done at [facility]) MDRO Source:: Sputum Past Surgical History: Appendectomy, Cholecystectomy Additional Past Surgical History / Comment(s): EXPLORATORY LAPAROTOMY, FUSION L4 -L5, colonoscopy, PEG tube. Past Anesthesia/Blood Transfusion Reactions: No Reported Reaction Past Psychological History: Anxiety Past Alcohol Use History: None Reported - Past Family History Father History Unknown: Yes Family Medical History: No Reported History Mother Family Medical History: Cancer, Deep Vein Thrombosis (DVT) Medications and Allergies Home Medications Medication Instructions Recorded Confirmed Type Insulin Glargine [Lantus] 15 unit SQ HS 07/09/16 12/25/17 History Gabapentin 600 mg PO TID 10/13/16 12/25/17 History Metoprolol Tartrate [Lopressor] 25 mg PO BID 10/13/16 12/25/17 History Simvastatin [Zocor] 40 mg PO HS 10/13/16 12/25/17 History Escitalopram [Lexapro] 20 mg PO DAILY 06/13/17 12/25/17 History Omeprazole 40 mg PO BID 06/13/17 12/25/17 History Aspirin 325 mg PO DAILY 09/19/17 12/25/17 History Insulin Aspart [NovoLOG] See Protocol SQ AC-TID 09/19/17 12/25/17 History Ranitidine HCl [Zantac] 300 mg PO DAILY 10/25/17 12/25/17 History Albuterol Inhaler [Ventolin Hfa 2 puff INHALATION RT-Q4H PRN 12/25/17 12/25/17 History Inhaler] Amitriptyline HCl [Elavil] 25 mg PO BID 12/25/17 12/25/17 History EPINEPHrine (Auto Inject) [Epipen] 0.3 mg IM ONCE PRN 12/25/17 12/25/17 History Fluticasone Nasal [place] [Flonase 2 spr EA NOSTRIL DAILY 12/25/17 12/25/17 History Nasal [place]] Loratadine [Claritin] 10 mg PO DAILY 12/25/17 12/25/17 History Allergies Allergy/AdvReac Type Severity Reaction Status Date / Time vancomycin Allergy kidneys Verified 12/25/17 09:11 shut down venom-honey bee Allergy Anaphylaxis Verified 12/25/17 09:11 [bee venom (honey bee)] Physical Exam Vitals: Vital Signs Temp Pulse Pulse Resp BP BP BP 12/25/17 11:49 108 H 12/25/17 11:39 100 12/25/17 11:21 99.3 F 115 H 18 104/53 12/25/17 11:16 99 22 06/19/18 08:36 99 22 12/25/17 08:23 98.1 F 99 20 83/48 87/49 12/25/17 08:20 96 22 83/48 87/49 12/25/17 08:05 116 H 18 87/51 12/25/17 07:49 12/25/17 07:47 120 H 12/25/17 07:34 120 H 12/25/17 07:00 122 H 18 101/50 12/25/17 06:45 130 H 20 127/87 12/25/17 05:32 139 H 20 127/87 12/25/17 05:23 142 H 12/25/17 05:16 144 H 12/25/17 04:42 99.7 F H 164 H 20 106/60 Pulse Ox 12/25/17 11:49 12/25/17 11:39 12/25/17 11:21 95 12/25/17 11:16 12/25/17 08:36 12/25/17 08:23 96 12/25/17 08:20 95 12/25/17 08:05 100 12/25/17 07:49 98 12/25/17 07:47 12/25/17 07:34 12/25/17 07:00 95 12/25/17 06:45 97 12/25/17 05:32 99 12/25/17 05:23 12/25/17 05:16 12/25/17 04:42 80 L Intake and Output 12/24/17 12/25/17 12/25/17 22:59 06:59 14:59 Intake Total 1250 Output Total 200 Balance 1050 Intake: Intake, IV Titration 1250 Amount Piperacillin-Tazobactam 3 50 .375 gm In Dextrose/Water 1 50ml.bag @ 12.5 mls/hr IVPB Q8H [facility] Rx#: [id number] Sodium Chloride 0.9% 1, 950 000 ml @ 100 mls/hr IV . Q10H [facility] Rx#:[id number] Vancomycin 1,500 mg In 250 Sodium Chloride 0.9% 250 ml @ 125 mls/hr IVPB Q8H [facility] Rx#:[id number] Output: Urine 200 Other: Voiding Method Toilet Urinal # Voids 1 Weight 88.904 kg 88.904 kg No acute distress, oriented 3. HEENT examination is grossly unremarkable. Mucous membranes are moist. No oral lesions. Neck supple. Full range of motion. No adenopathy thyromegaly or neck vein distention. Cardiovascular examination reveals regular rhythm rate. S1-S2 normal. No S3 or S4. No discernible murmur noted. Lungs reveal diminished breath on the lung bases along with some right basilar crackles worse on the left Abdomen soft bowel sounds are heard. No masses or tenderness. PEG tube is present for left upper quadrant, with tube feedings infusing continuously. Extremities are intact. No cyanosis clubbing or edema.Examination of the extremities revealed easily palpable radial, femoral and pedal pulses. There was no cyanosis, clubbing or edema. Skin is without rash or lesion.Examination of the skin revealed no evidence of significant rashes, suspicious appearing nevi or other concerning lesions. Neurologic examination is shows some limited right-sided weakness including the right face upper and lower extremity related to a previous brainstem stroke. Otherwise patient is awake and alert and following commands and answering questions appropriately. Results - Laboratory Findings CBC and BMP: 12/25/17 04:50 12/25/17 04:50 ABG ABG pH 7.37 (7.35-7.45) 12/25/17 05:15 ABG pCO2 50 mmHg (35-45) H 12/25/17 05:15 ABG pO2 65 mmHg (83-108) L 12/25/17 05:15 ABG O2 Saturation 92.0 % (94-97) L 12/25/17 05:15 PT/INR, D-dimer PT 9.8 sec (9.0-12.0) 12/25/17 04:50 INR 1.0 (<1.2) 12/25/17 04:50 D-Dimer 0.97 mg/L FEU (<0.60) H 12/25/17 04:50 Abnormal lab findings: Abnormal Labs 12/25/17 12/25/17 12/25/17 04:50 04:50 04:50 WBC 12.9 H Neutrophils # 11.6 H Lymphocytes # 0.8 L D-Dimer ABG pCO2 ABG pO2 ABG HCO3 ABG Total CO2 ABG O2 Saturation Chloride 96 L Glucose 248 H POC Glucose (mg/dL) Plasma Lactic Acid Calin Magnesium 1.4 L Total Creatine Kinase 35 L Ur Specific [place] Urine Protein Urine Glucose (UA) 12/25/17 12/25/17 12/25/17 04:50 04:50 04:56 WBC Neutrophils # Lymphocytes # D-Dimer 0.97 H ABG pCO2 ABG pO2 ABG HCO3 ABG Total CO2 ABG O2 Saturation Chloride Glucose POC Glucose (mg/dL) 227 H Plasma Lactic Acid Calin 2.9 H* Magnesium Total Creatine Kinase Ur Specific [place] Urine Protein Urine Glucose (UA) 12/25/17 12/25/17 12/25/17 05:15 08:50 11:10 WBC Neutrophils # Lymphocytes # D-Dimer ABG pCO2 50 H ABG pO2 65 L ABG HCO3 28 H ABG Total CO2 18 L ABG O2 Saturation 92.0 L Chloride Glucose POC Glucose (mg/dL) 246 H Plasma Lactic Acid Calin Magnesium Total Creatine Kinase Ur Specific [place] 1.050 H Urine Protein Trace H Urine Glucose (UA) Trace H Assessment and Plan Plan: Assessment 1 acute bilateral multifocal pneumonia consistent with aspiration, covered with broad-spectrum antibiotics. The patient is currently on accommodation is also Levaquin and vancomycin. Strongly suspect an aspiration based on his history of CVA/dysphagia 2 history of left brain stem stroke in June 2016 with residual right facial weakness in addition to weakness in the right upper and right lower extremity, impaired swallow 3 dysphagia secondary to above the patient has a PEG tube in place 4 dyspnea secondary to above 5 remote history of left lower extremity DVT and pulmonary embolism completed anticoagulation treatment 6 hypertension 7 hyperlipidemia 8 acute hypoxemic respiratory failure secondary to above 9 acute lactic acidosis secondary to above 10 diabetes mellitus with some underlying hyperglycemia related to underlying pneumonia. Currently on Levemir 20 units in addition to NovoLog sliding scale coverage Plan Obtain sputum Gram stain and culture. Continue current antibiotic coverage. Swallow evaluation to evaluate his dysphagia and assess his ability to swallow safely without any difficulties or aspiration. Continue enteral feeding for a PEG tube for nutritional support. We'll continue to follow.
[2017-12-25] MEDS: GABAPENTIN 300 MG CAP PO SCH ×3 (13:16→20:05)
[2017-12-25] MEDS: FAMOTIDINE 20 MG TAB PO SCH (13:17)
[2017-12-25] MEDS: ASPIRIN 325 MG TAB PO SCH (13:17)
[2017-12-25] MEDS: ESCITALOPRAM 20 MG TAB PO SCH (13:17)
[2017-12-25] MEDS: PANTOPRAZOLE 40 MG TABLET PO SCH (13:17)
[2017-12-25] MEDS: METOPROLOL TARTRATE 25 MG TAB PO SCH ×2 (13:17→20:04)
[2017-12-25] MEDS: MAGNESIUM OXIDE 400 MG TAB PO SCH (13:17)
[2017-12-25] MEDS: PIPERACILLIN-TAZOBACTAM 3.375 GM in DEXTROSE/WATER 1 50ML.BAG IVPB SCH ×2 (14:29→20:04)
[2017-12-25 16:35] LABS: Glucose,Whole Blood 134 mg/dL (75-99)
[2017-12-25] MEDS: VANCOMYCIN 1,500 MG in SODIUM CHLORIDE 0.9% 250 ML IVPB SCH ×2 (16:47→17:28)
--- NOTE | 2017-12-25 16:57 | P.CONS ---
History of Present Illness - Reason for Consult Consult date: 12/25/17 Sepsis, recurrent pneumonia - History of Present Illness This is a 52-year-old male patient known to ID service as he was seen in June 2016 at which time he was hospitalized for acute left brain stem stroke. Patient states overall he has been doing very well and still follows with speech therapy only. He follows with KD/therapist at [facility]. Patient did have a PEG tube placed for chronic dysphagia which was removed. He had ongoing dysphagia and a niece and fundoplication was done in December 2016. By May 2017 he had narrowing of the distal esophagus and underwent balloon dilatation. Following that he had spasm stenosis of the proximal esophagus without aspiration or penetration but due to ongoing symptoms of dysphagia and risk for aspiration a PEG tube was reinserted. He was recently treated for pneumonia in October 2017 and sputum culture was only positive for Clare albicans and Clare glabrata. He was discharged on Avelox. Patient states he has been doing very well since his discharge but a couple days ago he started having shakes like tremors. He denies having any fever or chills at home. Then last evening he became very short of breath with cough and congestion and drove himself into [facility] emergency center for evaluation. He had a CAT scan in December of the chest that showed multifocal infiltrates bilaterally involving the lower lobes consistent with multifocal pneumonia, persistent diffuse dilatation of the esophagus. Patient denies any recent episode of coughing or possible aspiration that he can recall. He is on oral feedings of soft foods which he states he has done very well with. His white count was at 12.9, temperature max 99.7. His initial pulse ox was 80% on room air. He had hypotension this morning as well but did not require vasopressors. His initial lactic acid was 2.9 and repeat 1.7 patient is status post 1 L of fluid and was admitted to the selective care unit. He has been seen in consultation by Dr. Burgess in. He has been on IV antibiotics the form of Levaquin, Zosyn and vancomycin. Patient states that his breathing status is much improved since his presentation to the emergency center. Patient's blood sugars have been elevated in the 200s. He states he has recently been established with Dr. Vanegas and started on metformin along with his insulin. Hemoglobin A1c is pending. Review of Systems All systems: negative Constitutional: Reports fatigue, Denies chills, Denies fever Eyes: denies blurred vision, denies pain Ears, nose, mouth and throat: Denies headache, Denies sore throat Cardiovascular: Reports decreased exercise tolerance, Reports dyspnea on exertion, Reports shortness of breath, Denies chest pain, Denies edema, Denies leg edema, Denies lightheadedness, Denies syncope Respiratory: Reports cough, Reports cough with sputum, Reports dyspnea, Denies excessive sputum, Denies hemoptysis, Denies home oxygen Gastrointestinal: Denies abdominal pain, Denies diarrhea, Denies nausea, Denies vomiting Genitourinary: Denies dysuria, Denies urinary retention Musculoskeletal: Denies myalgias Integumentary: Denies pruritus, Denies rash Neurological: Denies numbness, Denies weakness Psychiatric: Denies anxiety, Denies depression Endocrine: Denies fatigue, Denies weight change Past Medical History Past Medical History: CVA/TIA, Diabetes Mellitus, Deep Vein Thrombosis (DVT), GERD/Reflux, Hyperlipidemia, Hypertension, Musculoskeletal Disorder, Pulmonary Embolus (PE), Syncope Additional Past Medical History / Comment(s): states "unable to pass barium swallow but able to swallow some foods and fluids." LUMBAR STENOSIS. HX DVT LT CALF, THEN PE. HX IBS. COLON POLYPS, hypertensive cardio vascular disease with left ventricular hypertrophy. cataracts. rt side of body temperature intolerance History of Any Multi-Drug Resistant Organisms: MRSA Year Discovered:: (per patient: culture done at [facility]) MDRO Source:: Sputum Past Surgical History: Appendectomy, Cholecystectomy Additional Past Surgical History / Comment(s): EXPLORATORY LAPAROTOMY, FUSION L4 -L5, colonoscopy, PEG tube. Past Anesthesia/Blood Transfusion Reactions: No Reported Reaction Past Psychological History: Anxiety Past Alcohol Use History: None Reported Additional Past Alcohol Use History / Comment(s): Patient is a lifelong nonsmoker. He drinks alcohol rarely. 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 - Past Family History Father History Unknown: Yes Family Medical History: No Reported History Mother Family Medical History: Cancer, Deep Vein Thrombosis (DVT) Medications and Allergies Home Medications Medication Instructions Recorded Confirmed Type Insulin Glargine [Lantus] 15 unit SQ HS 07/09/16 12/25/17 History Gabapentin 600 mg PO TID 10/13/16 12/25/17 History Metoprolol Tartrate [Lopressor] 25 mg PO BID 10/13/16 12/25/17 History Simvastatin [Zocor] 40 mg PO HS 10/13/16 12/25/17 History Escitalopram [Lexapro] 20 mg PO DAILY 06/13/17 12/25/17 History Omeprazole 40 mg PO BID 06/13/17 12/25/17 History Aspirin 325 mg PO DAILY 09/19/17 12/25/17 History Insulin Aspart [NovoLOG] See Protocol SQ AC-TID 09/19/17 12/25/17 History Ranitidine HCl [Zantac] 300 mg PO DAILY 10/25/17 12/25/17 History Albuterol Inhaler [Ventolin Hfa 2 puff INHALATION RT-Q4H PRN 12/25/17 12/25/17 History Inhaler] Amitriptyline HCl [Elavil] 25 mg PO BID 12/25/17 12/25/17 History EPINEPHrine (Auto Inject) [Epipen] 0.3 mg IM ONCE PRN 12/25/17 12/25/17 History Fluticasone Nasal [place] [Flonase 2 spr EA NOSTRIL DAILY 12/25/17 12/25/17 History Nasal [place]] Loratadine [Claritin] 10 mg PO DAILY 12/25/17 12/25/17 History Allergies Allergy/AdvReac Type Severity Reaction Status Date / Time vancomycin Allergy kidneys Verified 12/25/17 09:11 shut down venom-honey bee Allergy Anaphylaxis Verified 12/25/17 09:11 [bee venom (honey bee)] Physical Exam Vitals: Vital Signs Temp Pulse Pulse Resp BP BP BP 12/25/17 16:30 102 H 18 12/25/17 16:20 100 18 12/25/17 15:12 98 18 12/25/17 15:10 98.5 F 98 18 109/65 12/25/17 11:49 108 H 12/25/17 11:39 100 12/25/17 11:21 99.3 F 115 H 18 104/53 12/25/17 11:16 99 22 12/25/17 08:36 99 22 12/25/17 08:23 98.1 F 99 20 83/48 87/49 12/25/17 08:20 96 22 83/48 87/49 06/19/18 08:05 116 H 18 87/51 12/25/17 07:49 12/25/17 07:47 120 H 12/25/17 07:34 120 H 12/25/17 07:00 122 H 18 101/50 12/25/17 06:45 130 H 20 127/87 12/25/17 05:32 139 H 20 127/87 12/25/17 05:23 142 H 12/25/17 05:16 144 H 12/25/17 04:42 99.7 F H 164 H 20 106/60 Pulse Ox 12/25/17 16:30 12/25/17 16:20 12/25/17 15:12 12/25/17 15:10 96 12/25/17 11:49 12/25/17 11:39 12/25/17 11:21 95 12/25/17 11:16 12/25/17 08:36 12/25/17 08:23 96 12/25/17 08:20 95 12/25/17 08:05 100 12/25/17 07:49 98 12/25/17 07:47 12/25/17 07:34 12/25/17 07:00 95 12/25/17 06:45 97 12/25/17 05:32 99 12/25/17 05:23 12/25/17 05:16 12/25/17 04:42 80 L Intake and Output 12/25/17 12/25/17 12/25/17 06:59 14:59 22:59 Intake Total 1250 400 Output Total 200 Balance 1050 400 Intake: Intake, IV Titration 1250 Amount Piperacillin-Tazobactam 3 50 .375 gm In Dextrose/Water 1 50ml.bag @ 12.5 mls/hr IVPB Q8H [facility] Rx#: [id number] Sodium Chloride 0.9% 1, 950 000 ml @ 100 mls/hr IV . Q10H [facility] Rx#:[id number] Vancomycin 1,500 mg In 250 Sodium Chloride 0.9% 250 ml @ 125 mls/hr IVPB Q8H [facility] Rx#:[id number] Tube Feeding 400 Output: Urine 200 Other: Voiding Method Toilet Toilet Urinal Urinal # Voids 1 Weight 88.904 kg 88.904 kg Gen: This is a 52-year-old male patient. He is sitting up in bed and appears to be in no acute distress. No respiratory distress is noted. HEENT: Head is atraumatic, normocephalic. Pupils equal, round. Sclerae is anicteric. Conjunctiva pink. Oral mucous membranes are moist. NECK: Supple. No JVD. No lymphadenopathy. No thyromegaly. LUNGS: Diminished to the bilateral bases. No intercostal retractions. HEART: Regular rate and rhythm. No murmur. ABDOMEN: Soft. Bowel sounds are present. No masses. No tenderness. PEG tube to the left upper quadrant. No redness or drainage noted EXTREMITIES: No pedal edema. No calf tenderness. Dorsalis pedis is +2 bilaterally. NEUROLOGICAL: Patient is awake, alert and oriented x3. Cranial nerves 2 through 12 are grossly intact. Results Results: Laboratory Results WBC 12.9 k/uL (3.8-10.6) H 12/25/17 04:50 RBC 4.85 m/uL (4.30-5.90) 12/25/17 04:50 Hgb 14.5 gm/dL (13.0-17.5) D 12/25/17 04:50 Hct 44.8 % (39.0-53.0) 12/25/17 04:50 MCV 92.6 fL (80.0-100.0) 12/25/17 04:50 MCH 29.8 pg (25.0-35.0) 12/25/17 04:50 MCHC 32.2 g/dL (31.0-37.0) 12/25/17 04:50 RDW 13.5 % (11.5-15.5) 12/25/17 04:50 Plt Count 323 k/uL (150-450) 12/25/17 04:50 Neutrophils % 90 % 12/25/17 04:50 Lymphocytes % 6 % 12/25/17 04:50 Monocytes % 3 % 12/25/17 04:50 Eosinophils % 0 % 12/25/17 04:50 Basophils % 0 % 12/25/17 04:50 Neutrophils # 11.6 k/uL (1.3-7.7) H 12/25/17 04:50 Lymphocytes # 0.8 k/uL (1.0-4.8) L 12/25/17 04:50 Monocytes # 0.4 k/uL (0-1.0) 12/25/17 04:50 Eosinophils # 0.1 k/uL (0-0.7) 12/25/17 04:50 Basophils # 0.0 k/uL (0-0.2) 12/25/17 04:50 PT 9.8 sec (9.0-12.0) 12/25/17 04:50 INR 1.0 (<1.2) 12/25/17 04:50 APTT 22.5 sec (22.0-30.0) 12/25/17 04:50 D-Dimer 0.97 mg/L FEU (<0.60) H 12/25/17 04:50 Sample Site lbrac 12/25/17 05:15 ABG pH 7.37 (7.35-7.45) 12/25/17 05:15 ABG pCO2 50 mmHg (35-45) H 12/25/17 05:15 ABG pO2 65 mmHg (83-108) L 12/25/17 05:15 ABG HCO3 28 mmol/L (21-25) H 12/25/17 05:15 ABG Total CO2 18 mmol/L (19-24) L 12/25/17 05:15 ABG O2 Saturation 92.0 % (94-97) L 12/25/17 05:15 ABG Base Excess 2.6 mmol/L 12/25/17 05:15 Jose Angel Test yes 12/25/17 05:15 FiO2 100 % 12/25/17 05:15 Sodium 138 mmol/L (137-145) 12/25/17 04:50 Potassium 4.1 mmol/L (3.5-5.1) 12/25/17 04:50 Chloride 96 mmol/L (98-107) L 12/25/17 04:50 Carbon Dioxide 30 mmol/L (22-30) 12/25/17 04:50 Anion Gap 12 mmol/L 12/25/17 04:50 BUN 14 mg/dL (9-20) 12/25/17 04:50 Creatinine 0.70 mg/dL (0.66-1.25) 12/25/17 04:50 Est GFR (CKD-EPI)AfAm >90 (>60 ml/min/1.73 sqM) 12/25/17 04:50 Est GFR (CKD-EPI)NonAf >90 (>60 ml/min/1.73 sqM) 12/25/17 04:50 Glucose 248 mg/dL (74-99) H 12/25/17 04:50 POC Glucose (mg/dL) 134 mg/dL (75-99) H 12/25/17 16:24 POC Glu Home Health Aid ID Asuncion King 12/25/17 16:24 Plasma Lactic Acid Calin 1.7 mmol/L (0.7-2.0) 12/25/17 08:30 Calcium 8.9 mg/dL (8.4-10.2) 12/25/17 04:50 Magnesium 1.4 mg/dL (1.6-2.3) L 12/25/17 04:50 Total Bilirubin 0.6 mg/dL (0.2-1.3) 12/25/17 04:50 AST 17 U/L (17-59) 12/25/17 04:50 ALT 26 U/L (21-72) 12/25/17 04:50 Alkaline Phosphatase 107 U/L (38-126) 12/25/17 04:50 Total Creatine Kinase 35 U/L (55-170) L 12/25/17 04:50 CK-MB (CK-2) 0.9 ng/mL (0.0-2.4) 12/25/17 04:50 CK-MB (CK-2) Rel Index 2.6 12/25/17 04:50 Troponin I <0.012 ng/mL (0.000-0.034) 12/25/17 04:50 NT-Pro-B Natriuret Pep 53 pg/mL 12/25/17 04:50 Total Protein 7.2 g/dL (6.3-8.2) 12/25/17 04:50 Albumin 3.8 g/dL (3.5-5.0) 12/25/17 04:50 Urine Color Yellow 12/25/17 08:50 Urine Appearance Clear (Clear) 12/25/17 08:50 Urine pH 5.5 (5.0-8.0) 12/25/17 08:50 Ur Specific [place] 1.050 (1.001-1.035) H 12/25/17 08:50 Urine Protein Trace (Negative) H 12/25/17 08:50 Urine Glucose (UA) Trace (Negative) H 12/25/17 08:50 Urine Ketones Negative (Negative) 12/25/17 08:50 Urine Blood Negative (Negative) 12/25/17 08:50 Urine Nitrite Negative (Negative) 12/25/17 08:50 Urine Bilirubin Negative (Negative) 12/25/17 08:50 Urine Urobilinogen <2.0 mg/dL (<2.0) 12/25/17 08:50 Ur Leukocyte Esterase Negative (Negative) 12/25/17 08:50 CBC & Chem 7: 12/26/17 05:32 12/26/17 05:32 Labs: Abnormal Lab Results - Last 24 Hours (Table) 12/25/17 12/25/17 12/25/17 Range/Units 04:50 04:50 04:50 WBC 12.9 H (3.8-10.6) k/uL Neutrophils # 11.6 H (1.3-7.7) k/uL Lymphocytes # 0.8 L (1.0-4.8) k/uL D-Dimer (<0.60) mg/L FEU ABG pCO2 (35-45) mmHg ABG pO2 (83-108) mmHg ABG HCO3 (21-25) mmol/L ABG Total CO2 (19-24) mmol/L ABG O2 Saturation (94-97) % Chloride 96 L (98-107) mmol/L Glucose 248 H (74-99) mg/dL POC Glucose (mg/dL) (75-99) mg/dL Plasma Lactic Acid Calin (0.7-2.0) mmol/L Magnesium 1.4 L (1.6-2.3) mg/dL Total Creatine Kinase 35 L (55-170) U/L Ur Specific [place] (1.001-1.035) Urine Protein (Negative) Urine Glucose (UA) (Negative) 12/25/17 12/25/17 12/25/17 Range/Units 04:50 04:50 04:56 WBC (3.8-10.6) k/uL Neutrophils # (1.3-7.7) k/uL Lymphocytes # (1.0-4.8) k/uL D-Dimer 0.97 H (<0.60) mg/L FEU ABG pCO2 (35-45) mmHg ABG pO2 (83-108) mmHg ABG HCO3 (21-25) mmol/L ABG Total CO2 (19-24) mmol/L ABG O2 Saturation (94-97) % Chloride (98-107) mmol/L Glucose (74-99) mg/dL POC Glucose (mg/dL) 227 H (75-99) mg/dL Plasma Lactic Acid Calin 2.9 H* (0.7-2.0) mmol/L Magnesium (1.6-2.3) mg/dL Total Creatine Kinase (55-170) U/L Ur Specific [place] (1.001-1.035) Urine Protein (Negative) Urine Glucose (UA) (Negative) 12/25/17 12/25/17 12/25/17 Range/Units 05:15 08:50 11:10 WBC (3.8-10.6) k/uL Neutrophils # (1.3-7.7) k/uL Lymphocytes # (1.0-4.8) k/uL D-Dimer (<0.60) mg/L FEU ABG pCO2 50 H (35-45) mmHg ABG pO2 65 L (83-108) mmHg ABG HCO3 28 H (21-25) mmol/L ABG Total CO2 18 L (19-24) mmol/L ABG O2 Saturation 92.0 L (94-97) % Chloride (98-107) mmol/L Glucose (74-99) mg/dL POC Glucose (mg/dL) 246 H (75-99) mg/dL Plasma Lactic Acid Calin (0.7-2.0) mmol/L Magnesium (1.6-2.3) mg/dL Total Creatine Kinase (55-170) U/L Ur Specific [place] 1.050 H (1.001-1.035) Urine Protein Trace H (Negative) Urine Glucose (UA) Trace H (Negative) 12/25/17 Range/Units 16:24 WBC (3.8-10.6) k/uL Neutrophils # (1.3-7.7) k/uL Lymphocytes # (1.0-4.8) k/uL D-Dimer (<0.60) mg/L FEU ABG pCO2 (35-45) mmHg ABG pO2 (83-108) mmHg ABG HCO3 (21-25) mmol/L ABG Total CO2 (19-24) mmol/L ABG O2 Saturation (94-97) % Chloride (98-107) mmol/L Glucose (74-99) mg/dL POC Glucose (mg/dL) 134 H (75-99) mg/dL Plasma Lactic Acid Calin (0.7-2.0) mmol/L Magnesium (1.6-2.3) mg/dL Total Creatine Kinase (55-170) U/L Ur Specific [place] (1.001-1.035) Urine Protein (Negative) Urine Glucose (UA) (Negative) Microbiology - Last 24 Hours (Table) 12/25/17 08:50 Urine Culture - Preliminary Urine,Clean Catch 12/25/17 08:50 Nasal Screen MRSA/MSSA ([place]) - Preliminary Nasal Swab Assessment and Plan Plan: This is a 52-year-old male patient who presented to hospital with acute hypoxic respiratory failure with acute lactic acidosis secondary to acute bilateral multifocal pneumonia, aspiration pneumonia. Patient has been started on IV antibiotics the form of Levaquin, Zosyn and vancomycin. For now, Zosyn and vancomycin will be utilized. He is followed by Dr. Barron from pulmonary medicine. He has been resumed on his tube feedings and also has been eating orally as well. Sputum culture has been sent. Blood cultures are status received. Continue supportive care. Further recommendations as patient progresses. The above dictated assessment and findings were discussed with Dr. Coronel. The impression and plan of care have been directed as dictated. Danni Lay nurse practitioner acting as scribe for Dr. Coronel.
[2017-12-25 19:38] LABS: Hemoglobin A1C 9.6 % (4.0-6.0)
[2017-12-25] MEDS: ATORVASTATIN 20 MG TAB PO SCH (20:05)
[2017-12-25] MEDS: HYDROcodone/APAP 5-325MG 1 EACH TAB PO PRN (20:06)
[2017-12-25 20:53] LABS: Glucose,Whole Blood 120 mg/dL (75-99)
--- NOTE | 2017-12-25 21:11 | P.CON ---
Consult Note - . Consult date: 12/25/17 Assessment/Plan:: This is a 52-year-old male patient known to ID service as he was seen in June 2016 at which time he was hospitalized for acute left brain stem stroke. Patient states overall he has been doing very well and still follows with speech therapy only. He follows with KD/therapist at [facility]. Patient did have a PEG tube placed for chronic dysphagia which was removed. He had ongoing dysphagia and a niece and fundoplication was done in December 2016. By May 2017 he had narrowing of the distal esophagus and underwent balloon dilatation. Following that he had spasm stenosis of the proximal esophagus without aspiration or penetration but due to ongoing symptoms of dysphagia and risk for aspiration a PEG tube was reinserted. He was recently treated for pneumonia in October 2017 and sputum culture was only positive for Clare albicans and Clare glabrata. He was discharged on Avelox. Patient states he has been doing very well since his discharge but a couple days ago he started having shakes like tremors. He denies having any fever or chills at home. Then last evening he became very short of breath with cough and congestion and drove himself into [facility] emergency center for evaluation. He had a CAT scan in December of the chest that showed multifocal infiltrates bilaterally involving the lower lobes consistent with multifocal pneumonia, persistent diffuse dilatation of the esophagus. Patient denies any recent episode of coughing or possible aspiration that he can recall. He is on oral feedings of soft foods which he states he has done very well with. His white count was at 12.9, temperature max 99.7. His initial pulse ox was 80% on room air. He had hypotension this morning as well but did not require vasopressors. His initial lactic acid was 2.9 and repeat 1.7 patient is status post 1 L of fluid and was admitted to the selective care unit. He has been seen in consultation by Dr. Burgess in. He has been on IV antibiotics the form of Levaquin, Zosyn and vancomycin. Patient states that his breathing status is much improved since his presentation to the emergency center. Patient's blood sugars have been elevated in the 200s. He states he has recently been established with Dr. Vanegas and started on metformin along with his insulin. Hemoglobin A1c is pending. Please see the consult note is dictated by nurse practitioner Mrs. Danni Lay. This pleasant 52-year-old gentleman is noted had the left brain stem stroke with had quite good recovery overall except for his dysphagia and esophageal dysmotility. He recently had pneumonia and was treated with moxifloxacin. He however developed significant sudden shortness of breath in multifocal pneumonia. He does relate to a history of MRSA in the past and consequently antibiotic therapy with vancomycin and Zosyn will be continued at this time. Cultures are in progress which will help define his course of antibiotic therapy the time of his discharge. Is noted to computed tomography scan shows the multifocal pneumonia and with a dilated esophagus that is fluid filled, aspiration events appear to be the most likely. The patient has been trying to eat as of late which may be part of the etiology of the current problem. With suggest that he does not attempt to eat food at this point in time until he has further evaluations. May also need to have further evaluation from the surgeon as to whether or not further distal dilatation can be done to the esophagus to improve esophageal emptying which may then reduce risk of further pneumonia. Leukocytosis is noted and will be monitored. I agree with evaluation, assessment and plan as dictated practitioner Mrs. Danni Lay.
[2017-12-25] MEDS: INSULIN DETEMIR 100 UNIT/ML 10 ML VIAL SQ SCH (21:42)
[2017-12-26] MEDS: VANCOMYCIN 1,500 MG in SODIUM CHLORIDE 0.9% 250 ML IVPB SCH ×3 (00:15→17:26)
[2017-12-26] MEDS: KETOROLAC 30 MG/ML 1 ML VIAL IVP SCH ×5 (00:17→23:54)
[2017-12-26] MEDS: IPRATROPIUM-ALBUTEROL 3 ML NEB INHALATION SCH ×5 (00:35→20:55)
[2017-12-26] MEDS: PIPERACILLIN-TAZOBACTAM 3.375 GM in DEXTROSE/WATER 1 50ML.BAG IVPB SCH ×3 (04:08→20:47)
[2017-12-26] MEDS: HYDROcodone/APAP 5-325MG 1 EACH TAB PO PRN ×3 (04:09→20:08)
[2017-12-26 05:52] LABS: Glucose,Whole Blood 145 mg/dL (75-99)
[2017-12-26] MEDS ORDERED: LEVOFLOXACIN 750MG-D5W PMX 750 MG in DEXTROSE/WATER 1 150ML.BAG IVPB SCH (06:00)
[2017-12-26] MEDS: INSULIN ASPART 100 UNIT/ML 1 ML 10 ML VIAL SQ SCH ×4 (06:21→21:52)
[2017-12-26] MEDS: PANTOPRAZOLE 40 MG TABLET PO SCH (06:21)
[2017-12-26 07:00] LABS: Basophils % (A) 0 %; Eosinophils # (A) 0.1 k/uL (0-0.7); Eosinophils % (A) 0 %; Lymphocytes # (A) 1.3 k/uL (1.0-4.8); Lymphocytes % (A) 10 %; MCH 30.4 pg (25.0-35.0); MCHC 32.6 g/dL (31.0-37.0); MCV 93.1 fL (80.0-100.0); Mean Platelet Volume 7.6; Monocytes # (A) 0.6 k/uL (0-1.0); Monocytes % (A) 5 %; Neutrophils # (A) 10.9 k/uL (1.3-7.7); Neutrophils % (A) 84 %; Platelet Count 182 k/uL (150-450); RBC 3.65 m/uL (4.30-5.90); RDW 13.7 % (11.5-15.5); WBC 12.9 k/uL (3.8-10.6)
[2017-12-26 07:01] LABS: HGB 11.1 gm/dL (13.0-17.5)
[2017-12-26 07:15] LABS: Anion Gap 6 mmol/L; Blood Urea Nitrogen 13 mg/dL (9-20); Calcium 8.3 mg/dL (8.4-10.2); Carbon Dioxide 31 mmol/L (22-30); Chloride 100 mmol/L (98-107); Glucose 129 mg/dL (74-99); Potassium 4.2 mmol/L (3.5-5.1); Sodium 137 mmol/L (137-145)
[2017-12-26] MEDS: MAGNESIUM OXIDE 400 MG TAB PO SCH (08:13)
[2017-12-26] MEDS: GABAPENTIN 300 MG CAP PO SCH ×3 (08:13→20:08)
[2017-12-26] MEDS: ENOXAPARIN 40 MG/0.4 ML SYRINGE SQ SCH (08:13)
[2017-12-26] MEDS: ESCITALOPRAM 20 MG TAB PO SCH (08:13)
[2017-12-26] MEDS: FAMOTIDINE 20 MG TAB PO SCH (08:13)
[2017-12-26] MEDS: METOPROLOL TARTRATE 25 MG TAB PO SCH ×2 (08:13→20:08)
[2017-12-26] MEDS: ASPIRIN 325 MG TAB PO SCH (08:13)
--- NOTE | 2017-12-26 09:09 | P.CONS ---
History of Present Illness - Reason for Consult Consult date: 12/26/17 Esophageal dilation evaluation Requesting physician: Kirk Reardon - History of Present Illness 52-year-old male with a history of brainstem stroke chronic dysphagia insertion removal and reinsertion of PEG tube earlier this year, admitted with acute bilateral aspiration pneumonia. Patient has been eating and drinking liquids pureed foods. He is able to tolerate thin liquids/water. He has a history of left lower extremity DVT PE recurrent aspiration pneumonias as well as a Davis fundoplication in December [address] Lynn. Patient continued to have persistent dysphagia after Davis surveillance EGD performed by Dr. Lynn May 2017 identified narrowing proximally balloon dilatation of the esophagus was done. Peg tube was reinserted earlier this year by Dr. Lynn. Patient is presently receiving Lovenox and tube feeds. White count 12.9. Hemoglobin 11.1. Platelet 182. INR 1.0. CT chest persistent dilated fluid filled esophagus. Review of Systems Constitutional: Denies fever, chills, sweats, weight gain, or loss. HEENT: Negative for migraines, blurred vision or loss, earaches, drainage, tinnitus, oral mucosal lesions, dysphagia, or odynophagia. Cardiac: Negative for chest pain, arrhythmias, or palpitation. Respiratory: Admitted with shortness of breath, denies hemoptysis, positive cough, positive sputum production. Gastrointestinal: See HPI for pertinent findings. Genitourinary: Negative for hematuria, urgency, frequency, polyuria, dysuria, or penile discharge. Musculoskeletal: Negative for muscle aches, swelling, arthritis, and arthralgias. Neurologic: CVA with weakness. Endocrine: Negative for thyroid problems. Skin: Negative for rash or itching. Psychiatric: Negative history for depression and anxiety Past Medical History Past Medical History: CVA/TIA, Diabetes Mellitus, Deep Vein Thrombosis (DVT), GERD/Reflux, Hyperlipidemia, Hypertension, Musculoskeletal Disorder, Pulmonary Embolus (PE), Syncope Additional Past Medical History / Comment(s): states "unable to pass barium swallow but able to swallow some foods and fluids." LUMBAR STENOSIS. HX DVT LT CALF, THEN PE. HX IBS. COLON POLYPS, hypertensive cardio vascular disease with left ventricular hypertrophy. cataracts. rt side of body temperature intolerance History of Any Multi-Drug Resistant Organisms: MRSA Year Discovered:: (per patient: culture done at [facility]) MDRO Source:: Sputum Past Surgical History: Appendectomy, Cholecystectomy Additional Past Surgical History / Comment(s): EXPLORATORY LAPAROTOMY, FUSION L4 -L5, colonoscopy, PEG tube. Past Anesthesia/Blood Transfusion Reactions: No Reported Reaction Past Psychological History: Anxiety Past Alcohol Use History: None Reported Additional Past Alcohol Use History / Comment(s): Patient is a lifelong nonsmoker. He drinks alcohol rarely. 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 - Past Family History Father History Unknown: Yes Family Medical History: No Reported History Mother Family Medical History: Cancer, Deep Vein Thrombosis (DVT) Medications and Allergies Home Medications Medication Instructions Recorded Confirmed Type Insulin Glargine [Lantus] 15 unit SQ HS 07/09/16 12/25/17 History Gabapentin 600 mg PO TID 10/13/16 12/25/17 History Metoprolol Tartrate [Lopressor] 25 mg PO BID 10/13/16 12/25/17 History Simvastatin [Zocor] 40 mg PO HS 10/13/16 12/25/17 History Escitalopram [Lexapro] 20 mg PO DAILY 06/13/17 12/25/17 History Omeprazole 40 mg PO BID 06/13/17 12/25/17 History Aspirin 325 mg PO DAILY 09/19/17 12/25/17 History Insulin Aspart [NovoLOG] See Protocol SQ AC-TID 09/19/17 12/25/17 History Ranitidine HCl [Zantac] 300 mg PO DAILY 10/25/17 12/25/17 History Albuterol Inhaler [Ventolin Hfa 2 puff INHALATION RT-Q4H PRN 12/25/17 12/25/17 History Inhaler] Amitriptyline HCl [Elavil] 25 mg PO BID 12/25/17 12/25/17 History EPINEPHrine (Auto Inject) [Epipen] 0.3 mg IM ONCE PRN 12/25/17 12/25/17 History Fluticasone Nasal [place] [Flonase 2 spr EA NOSTRIL DAILY 12/25/17 12/25/17 History Nasal [place]] Loratadine [Claritin] 10 mg PO DAILY 12/25/17 12/25/17 History Allergies Allergy/AdvReac Type Severity Reaction Status Date / Time vancomycin Allergy kidneys Verified 12/25/17 09:11 shut down venom-honey bee Allergy Anaphylaxis Verified 12/25/17 09:11 [bee venom (honey bee)] Physical Exam Vitals: Vital Signs Temp Pulse Pulse Resp BP BP Pulse Ox 12/26/17 08:03 84 12/26/17 08:00 97.4 F L 92 16 105/58 94 L 12/26/17 07:49 84 12/26/17 04:05 98.8 F 93 20 104/59 95 12/26/17 04:00 93 20 12/26/17 00:00 99.1 F 100 20 97/52 94 L 12/25/17 20:27 99 16 12/25/17 20:15 100 18 12/25/17 20:00 99.8 F H 113 H 16 120/72 100 12/25/17 16:30 102 H 18 12/25/17 16:20 100 18 12/25/17 15:12 98 18 12/25/17 15:10 98.5 F 98 18 109/65 96 12/25/17 11:49 108 H 12/25/17 11:39 100 12/25/17 11:21 99.3 F 115 H 18 104/53 95 12/25/17 11:16 99 22 Intake and Output 12/25/17 12/26/17 12/26/17 22:59 06:59 14:59 Intake Total 860 910 Output Total 450 Balance 860 910 -450 Intake: IV 10 10 Invasive Line 1 10 10 Tube Feeding 850 900 Output: Urine 450 Other: Voiding Method Toilet Toilet Urinal Urinal # Voids 2 General appearance: The patient is alert, oriented, in no acute distress. HET: Head is normocephalic and atraumatic. Pupils are equal and reactive. Oropharynx is clear without lesions. Neck: Supple without lymphadenopathy. Trachea midline. Heart: S1 S2. Regular rate and rhythm. Lungs: No crackles or wheezes are heard. Abdomen: Soft, nontender, nondistended with bowel sounds. PEG with feeds infusing wihout drainage or erythema. No peritoneal signs. No palpable organomegaly or masses. Results CBC & Chem 7: 12/27/17 07:27 12/27/17 07:27 Labs: Abnormal Lab Results - Last 24 Hours (Table) 12/25/17 12/25/17 12/25/17 Range/Units 08:38 08:50 11:10 WBC (3.8-10.6) k/uL RBC (4.30-5.90) m/uL Hgb (13.0-17.5) gm/dL Hct (39.0-53.0) % Neutrophils # (1.3-7.7) k/uL Carbon Dioxide (22-30) mmol/L Creatinine (0.66-1.25) mg/dL Glucose (74-99) mg/dL POC Glucose (mg/dL) 246 H (75-99) mg/dL Hemoglobin A1c 9.6 H (4.0-6.0) % Calcium (8.4-10.2) mg/dL Ur Specific [place] 1.050 H (1.001-1.035) Urine Protein Trace H (Negative) Urine Glucose (UA) Trace H (Negative) 12/25/17 12/25/17 12/26/17 Range/Units 16:24 20:52 05:32 WBC 12.9 H (3.8-10.6) k/uL RBC 3.65 L (4.30-5.90) m/uL Hgb 11.1 L D (13.0-17.5) gm/dL Hct 34.0 L (39.0-53.0) % Neutrophils # 10.9 H (1.3-7.7) k/uL Carbon Dioxide (22-30) mmol/L Creatinine (0.66-1.25) mg/dL Glucose (74-99) mg/dL POC Glucose (mg/dL) 134 H 120 H (75-99) mg/dL Hemoglobin A1c (4.0-6.0) % Calcium (8.4-10.2) mg/dL Ur Specific Kathleen (1.001-1.035) Urine Protein (Negative) Urine Glucose (UA) (Negative) 12/26/17 12/26/17 Range/Units 05:32 05:50 WBC (3.8-10.6) k/uL RBC (4.30-5.90) m/uL Hgb (13.0-17.5) gm/dL Hct (39.0-53.0) % Neutrophils # (1.3-7.7) k/uL Carbon Dioxide 31 H (22-30) mmol/L Creatinine 0.50 L (0.66-1.25) mg/dL Glucose 129 H (74-99) mg/dL POC Glucose (mg/dL) 145 H (75-99) mg/dL Hemoglobin A1c (4.0-6.0) % Calcium 8.3 L (8.4-10.2) mg/dL Ur Specific Kathleen (1.001-1.035) Urine Protein (Negative) Urine Glucose (UA) (Negative) Microbiology - Last 24 Hours (Table) 12/25/17 04:50 Blood Culture - Preliminary Blood No Growth after 24 hours 12/25/17 08:00 Gram Stain - Preliminary Sputum 12/25/17 08:50 Urine Culture - Preliminary Urine,Clean Catch 12/25/17 08:50 Nasal Screen MRSA/MSSA ([place]) - Preliminary Nasal Swab Assessment and Plan (1) Dysphagia Narrative/Plan: Ct persistent dilated fluid filled esophagus. Underlying motility disorder cannot be entirely excluded. Current Visit: No Status: Chronic Code(s): R13.10 - DYSPHAGIA, UNSPECIFIED SNOMED Code(s): 96415568 (2) History of Davis fundoplication Current Visit: Yes Status: Acute Code(s): Z98.890 - OTHER SPECIFIED POSTPROCEDURAL STATES SNOMED Code(s): 839091349 (3) Gastrostomy in place Current Visit: Yes Status: Acute Code(s): Z93.1 - GASTROSTOMY STATUS SNOMED Code(s): 989003407 (4) Multifocal pneumonia Current Visit: Yes Status: Acute Code(s): J18.9 - PNEUMONIA, UNSPECIFIED ORGANISM SNOMED Code(s): 850756915 (5) Aspiration pneumonia Current Visit: No Status: Acute Code(s): J69.0 - PNEUMONITIS DUE TO INHALATION OF FOOD AND VOMIT SNOMED Code(s): 915281436 (6) H/O: CVA (cerebrovascular accident) Current Visit: Yes Status: Acute Code(s): Z86.73 - PRSNL HX OF TIA (TIA), AND CEREB INFRC W/O RESID DEFICITS SNOMED Code(s): 520858984 Plan: 1. Continue tube feeds. Protonix 40 mg daily. Antibiotics. 2. Case was discussed with Dr. Reardon. Consult general surgery Dr. Lynn as patient is know to his service and recommendations for endoscopy. Patient is receiving full length aspirin, Lovenox, and intravenous NSAIDs; these medications will need to be held prior to endoscopic procedure; Dr. Mckinney will provide additional recommendations. Consideration to modify patient's oral intake to help prevent recurrent aspiration episodes in the future was also discussed. 3. Will follow with you. Thank you for this kind referral and the opportunity to participate in the care of your patient. This consultation was discussed with Dr. Mckinney. The impression and plan of care have been directed as dictated.
[2017-12-26 11:25] LABS: Glucose,Whole Blood 169 mg/dL (75-99)
[2017-12-26] MEDS: SODIUM CHLORIDE 0.9% 1,000 ML IV SCH ×2 (13:37→23:53)
--- NOTE | 2017-12-26 14:26 | P.PN ---
Subjective Progress Note Date: 12/26/17 Patient feeling much better today, still having a pretty-productive cough which is also blood tinged and yellow. Afebrile overnight, maintaining saturations on 2 L nasal cannula. A doing well with tube feeds. No acute events overnight Objective - Vital Signs Vital signs: Vital Signs Temp 97.9 F 12/26/17 11:41 Pulse 80 12/26/17 12:48 Resp 16 12/26/17 11:41 BP 102/61 12/26/17 11:41 Pulse Ox 95 12/26/17 12:35 Intake & Output 12/25/17 12/26/17 12/26/17 18:59 06:59 18:59 Intake Total 1650 1370 0 Output Total 200 450 Balance 1450 1370 -450 Weight 88.904 kg Intake: IV 20 Invasive Line 1 20 Intake, IV Titration 1250 Amount Piperacillin-Tazobactam 3 50 .375 gm In Dextrose/Water 1 50ml.bag @ 12.5 mls/hr IVPB Q8H [facility] Rx#: [id number] Sodium Chloride 0.9% 1, 950 000 ml @ 100 mls/hr IV . Q10H [facility] Rx#:[id number] Vancomycin 1,500 mg In 250 Sodium Chloride 0.9% 250 ml @ 125 mls/hr IVPB Q8H [facility] Rx#:[id number] Oral 0 Tube Feeding 400 1350 Output: Urine 200 450 Other: Voiding Method Toilet Toilet Urinal Urinal Urinal # Voids 1 2 - Exam Constitutional: No acute distress, conversant, pleasant Eyes: Anicteric sclerae, moist conjunctiva, no lid-lag, PERRLA ENMT: NC/AT,Oropharynx clear, no erythema, exudates Neck:Supple, FROM, no masses, or JVD, No carotid bruits; No thyromegaly Lungs: Improved aeration in the right upper and middle lobes still with Rales in the right lower lobe, Clear to percussion, Normal respiratory effort, no accessory muscle use on 2 L Cardiovascular: Heart regular in rate and rhythm, No murmurs, gallops, or rubs no peripheral edema Abdominal: Soft Nontender, nom distended, no guarding, no rebound or rigidity, Normoactive bowel sounds No hepatomegaly, No splenomegaly, No palpable mass No abdominal wall hernia noted Skin: Normal temperature, tone, texture, turgor, No induration No subcutaneous nodules, No rash, lesions, No ulcers Extremities:No digital cyanosis No clubbing, Pedal pulses intact and symmetrical Radial pulses intact and symmetrical Normal gait and station, No calf tenderness Psychiatric: Alert and oriented to person, place and time, Appropriate affect Intact judgement Neuro: Muscles Strength 5/5 in all 4 extremities, Sensation to light touch grossly present throughout, Cranial nerves II-XII grossly intact. No focal sensory deficits - Labs CBC & Chem 7: 12/26/17 05:32 12/26/17 05:32 Labs: Abnormal Lab Results - Last 24 Hours (Table) 12/25/17 12/25/17 12/25/17 Range/Units 08:38 16:24 20:52 WBC (3.8-10.6) k/uL RBC (4.30-5.90) m/uL Hgb (13.0-17.5) gm/dL Hct (39.0-53.0) % Neutrophils # (1.3-7.7) k/uL Carbon Dioxide (22-30) mmol/L Creatinine (0.66-1.25) mg/dL Glucose (74-99) mg/dL POC Glucose (mg/dL) 134 H 120 H (75-99) mg/dL Hemoglobin A1c 9.6 H (4.0-6.0) % Calcium (8.4-10.2) mg/dL 12/26/17 12/26/17 12/26/17 Range/Units 05:32 05:32 05:50 WBC 12.9 H (3.8-10.6) k/uL RBC 3.65 L (4.30-5.90) m/uL Hgb 11.1 L D (13.0-17.5) gm/dL Hct 34.0 L (39.0-53.0) % Neutrophils # 10.9 H (1.3-7.7) k/uL Carbon Dioxide 31 H (22-30) mmol/L Creatinine 0.50 L (0.66-1.25) mg/dL Glucose 129 H (74-99) mg/dL POC Glucose (mg/dL) 145 H (75-99) mg/dL Hemoglobin A1c (4.0-6.0) % Calcium 8.3 L (8.4-10.2) mg/dL 12/26/17 Range/Units 11:23 WBC (3.8-10.6) k/uL RBC (4.30-5.90) m/uL Hgb (13.0-17.5) gm/dL Hct (39.0-53.0) % Neutrophils # (1.3-7.7) k/uL Carbon Dioxide (22-30) mmol/L Creatinine (0.66-1.25) mg/dL Glucose (74-99) mg/dL POC Glucose (mg/dL) 169 H (75-99) mg/dL Hemoglobin A1c (4.0-6.0) % Calcium (8.4-10.2) mg/dL Microbiology - Last 24 Hours (Table) 12/25/17 08:00 Gram Stain - Preliminary Sputum Sputum Culture - Preliminary Presumptive Staph aureus 12/25/17 08:50 Urine Culture - Final Urine,Clean Catch 12/25/17 08:30 Blood Culture - Preliminary Blood No Growth after 24 hours 12/25/17 04:50 Blood Culture - Preliminary Blood No Growth after 24 hours 12/25/17 08:50 Nasal Screen MRSA/MSSA ([place]) - Preliminary Nasal Swab Assessment and Plan (1) Acute respiratory failure with hypoxemia Current Visit: Yes Status: Acute Code(s): J96.01 - ACUTE RESPIRATORY FAILURE WITH HYPOXIA SNOMED Code(s): 756127346 (2) Severe sepsis Narrative/Plan: * Secondary to multifocal pneumonia possibly aspiration related * Patient afebrile, leukocytosis still at 13 * Appreciate ID recommendations, Levaquin has been discontinued continue with Zosyn and vancomycin day #2 * sputum culture preliminary staph aureus, blood cultures negative Current Visit: No Status: Acute Code(s): A41.9 - SEPSIS, UNSPECIFIED ORGANISM; R65.20 - SEVERE SEPSIS WITHOUT SEPTIC SHOCK SNOMED Code(s): 06870872 (3) Multifocal pneumonia Narrative/Plan: * Treatment regimen as above Current Visit: Yes Status: Acute Code(s): J18.9 - PNEUMONIA, UNSPECIFIED ORGANISM SNOMED Code(s): 541776033 (4) Type 2 diabetes mellitus with hyperglycemia Narrative/Plan: * A1c is 9.6. Initiate Accu-Cheks * Continue maintenance insulin regimen with correctional insulin scale * Also with neuropathy continue gabapentin Current Visit: Yes Status: Acute Code(s): E11.65 - TYPE 2 DIABETES MELLITUS WITH HYPERGLYCEMIA SNOMED Code(s): 760303353920748 (5) Hypomagnesemia Narrative/Plan: * Resolved after placement Current Visit: Yes Status: Resolved Code(s): E83.42 - HYPOMAGNESEMIA SNOMED Code(s): 364850915 (6) Dysphagia Narrative/Plan: * Residual from prior brainstem stroke * PEG tube in place secondary to patient's risk of aspiration * Currently on Glucerna tube feeds per dietary recommendations * Consult GI regarding possible dilation of distal esophagus Current Visit: No Status: Chronic Code(s): R13.10 - DYSPHAGIA, UNSPECIFIED SNOMED Code(s): 39565773 Plan: Appreciate recommendations from consultants, anticipate discharge in the next 1- 2 days. Continue with antibiotics for now
--- NOTE | 2017-12-26 14:56 | P.PN ---
<Adriana Tena M - Last Filed: 12/26/17 14:40> Subjective Progress Note Date: 12/26/17 Principal diagnosis: Acute bilateral multifocal pneumonia consistent with aspiration, covered with broad-spectrum antibiotics. A 52-year-old male patient known to me from previous hospitalization as the patient has had a previous brainstem stroke and has suffered from chronic dysphagia and has been hospitalized in the past for bouts of respiratory tract infection/pneumonia/aspiration. The patient was last seen by our services in July 2017. At that time the patient had a bibasilar opacity and persistent right upper lobe patchy opacity consistent with pneumonia. The patient was still having swallowing difficulties and dysphagia. As mentioned he has had a previous left-sided brainstem CVA leading to right-sided weakness involving the face upper and lower extremity and difficulty with speech and swallow. The patient had a PEG tube inserted for chronic dysphagia and ultimately the PEG tube was removed as the patient was improving and his swallow process is also improved. Subsequently was seen the general surgeon, Dr. Michele harvey for symptoms of dysphagia and the patient had a Davis fundoplication on 2016. His postop esophagram showed no evidence of any leak and the patient had no significant obstruction. The patient had continued to have symptoms of dysphagia and further evaluation by an EGD that was done on 05/11/2017 showed that the patient had some narrowing in the distal esophagus and the patient underwent balloon dilatation of the esophagus. The most recent swallow evaluation was done on 06/04/2017 and the patient had some spasms/stenosis of the proximal esophagus without evidence of any aspiration or penetration. Based on his ongoing symptoms of dysphagia and the risk of aspiration, a PEG tube was reinserted and currently the patient utilizing PEG tube and oral feeding. He takes 50% of his oral intake for the PEG tube. The patient utilizing Jevity and he uses around 5 cans of Jevity on a daily basis and he bolus feeds through his PEG tube. 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 Note that his last bout of pneumonia was in October 2017. At that time the patient presented with productive cough and hypotension and he had a left lower lobe pneumonia for which she was treated and the patient was discharged home on Avelox 400 mg by mouth daily. During this current admission, the patient acute decompensation of his history status. Within the past 24-48 hours he started having increased cough and congestion and he was producing purulent material. He was having also heaviness in his chest. The workup in the emergency included a CT angios the chest that showed multifocal infiltrates bilaterally involving the lower lobes consistent with multifocal pneumonia. There was still persistent diffuse dilatation of the esophagus. The PEG tube was also seen and it was in place. Based on all this, the patient was started on accommodation of Zosyn and Levaquin and vancomycin. His white cell count is at 12.9. His blood pressure with a pH of 7.37 with a pCO2 of 50 and pO2 of 65 his lactic acid level was at 2.9. His blood sugar was at 246. Urinalysis was negative. On 12/26/2017 patient seen in follow-up on selective care unit. He is awake alert, in no acute distress, room air oxygen is 95%, patient has been afebrile, no chills. Still has a frequent loose cough, with production of clear phlegm. Hemodynamically stable, sputum culture from 12/25/2017 shows presumptive staph aureus, blood cultures have been negative thus far. Urine culture has been negative. he remains on empiric antibiotics in the form of Levaquin and vancomycin. Yesterday we consult the speech therapy for evaluation of patient' s swallow. Patient had been working with an outpatient speech pathologist however she states he had missed several appointments. He is currently on tube feedings of Glucerna 1.2 at a rate of 250 ML per hour, and he is receiving 200 mL of water flushes every 4 hours. From pulmonary standpoint he reports being less short of breath and less congested. Lung sounds are positive for coarse rales over left upper and lower lobes. Today's lab work has been reviewed, have a BCC is 12.9, hemoglobin is 11.1, serum sodium is 137, potassium is 4.2, CO2 31, B1 is 13, creatinine 0.50. After speaking with speech pathologist who regularly follows the patient on an outpatient basis, it is clear that the patient is consuming more than the recommended amount of his intake by mouth. Regularly patient was prescribed free water in between meals not with meals. And some limited oral intake of mashed potatoes, of limited amount for pleasure feeds only. Patient admits that he takes and about 50% of his dietary intake by mouth. His last modified barium swallow was back in May. We will request speech pathologist to repeated tomorrow to rule out silent aspiration. Objective - Vital Signs Vital signs: Vital Signs Temp 97.9 F 12/26/17 11:41 Pulse 80 12/26/17 12:48 Resp 16 12/26/17 11:41 BP 102/61 12/26/17 11:41 Pulse Ox 95 12/26/17 12:35 Intake & Output 12/25/17 12/26/17 12/26/17 18:59 06:59 18:59 Intake Total 1650 1370 0 Output Total 200 450 Balance 1450 1370 -450 Weight 88.904 kg Intake: IV 20 Invasive Line 1 20 Intake, IV Titration 1250 Amount Piperacillin-Tazobactam 3 50 .375 gm In Dextrose/Water 1 50ml.bag @ 12.5 mls/hr IVPB Q8H [facility] Rx#: [id number] Sodium Chloride 0.9% 1, 950 000 ml @ 100 mls/hr IV . Q10H [facility] Rx#:[id number] Vancomycin 1,500 mg In 250 Sodium Chloride 0.9% 250 ml @ 125 mls/hr IVPB Q8H [facility] Rx#:[id number] Oral 0 Tube Feeding 400 1350 Output: Urine 200 450 Other: Voiding Method Toilet Toilet Urinal Urinal Urinal # Voids 1 2 - Exam No acute distress, oriented 3. HEENT examination is grossly unremarkable. Mucous membranes are moist. No oral lesions. Neck supple. Full range of motion. No adenopathy thyromegaly or neck vein distention. Cardiovascular examination reveals regular rhythm rate. S1-S2 normal. No S3 or S4. No discernible murmur noted. Lungs reveal diminished breath on the lung bases along with some right basilar crackles worse on the left. Patient has some extensive coarse crackles over left upper and lower lobes Abdomen soft bowel sounds are heard. No masses or tenderness. PEG tube is present for left upper quadrant, with tube feedings infusing continuously. Extremities are intact. No cyanosis clubbing or edema.Examination of the extremities revealed easily palpable radial, femoral and pedal pulses. There was no cyanosis, clubbing or edema. Skin is without rash or lesion.Examination of the skin revealed no evidence of significant rashes, suspicious appearing nevi or other concerning lesions. Neurologic examination is shows some limited right-sided weakness including the right face upper and lower extremity related to a previous brainstem stroke. Otherwise patient is awake and alert and following commands and answering questions appropriately. - Labs CBC & Chem 7: 12/26/17 05:32 12/26/17 05:32 Labs: Abnormal Lab Results - Last 24 Hours (Table) 12/25/17 12/25/17 12/25/17 Range/Units 08:38 16:24 20:52 WBC (3.8-10.6) k/uL RBC (4.30-5.90) m/uL Hgb (13.0-17.5) gm/dL Hct (39.0-53.0) % Neutrophils # (1.3-7.7) k/uL Carbon Dioxide (22-30) mmol/L Creatinine (0.66-1.25) mg/dL Glucose (74-99) mg/dL POC Glucose (mg/dL) 134 H 120 H (75-99) mg/dL Hemoglobin A1c 9.6 H (4.0-6.0) % Calcium (8.4-10.2) mg/dL 12/26/17 12/26/17 12/26/17 Range/Units 05:32 05:32 05:50 WBC 12.9 H (3.8-10.6) k/uL RBC 3.65 L (4.30-5.90) m/uL Hgb 11.1 L D (13.0-17.5) gm/dL Hct 34.0 L (39.0-53.0) % Neutrophils # 10.9 H (1.3-7.7) k/uL Carbon Dioxide 31 H (22-30) mmol/L Creatinine 0.50 L (0.66-1.25) mg/dL Glucose 129 H (74-99) mg/dL POC Glucose (mg/dL) 145 H (75-99) mg/dL Hemoglobin A1c (4.0-6.0) % Calcium 8.3 L (8.4-10.2) mg/dL 12/26/17 Range/Units 11:23 WBC (3.8-10.6) k/uL RBC (4.30-5.90) m/uL Hgb (13.0-17.5) gm/dL Hct (39.0-53.0) % Neutrophils # (1.3-7.7) k/uL Carbon Dioxide (22-30) mmol/L Creatinine (0.66-1.25) mg/dL Glucose (74-99) mg/dL POC Glucose (mg/dL) 169 H (75-99) mg/dL Hemoglobin A1c (4.0-6.0) % Calcium (8.4-10.2) mg/dL Microbiology - Last 24 Hours (Table) 12/25/17 08:00 Gram Stain - Preliminary Sputum Sputum Culture - Preliminary Presumptive Staph aureus 12/25/17 08:50 Urine Culture - Final Urine,Clean Catch 12/25/17 08:30 Blood Culture - Preliminary Blood No Growth after 24 hours 12/25/17 04:50 Blood Culture - Preliminary Blood No Growth after 24 hours 12/25/17 08:50 Nasal Screen MRSA/MSSA ([facility]) - Preliminary Nasal Swab Assessment and Plan Plan: Assessment: 1 acute bilateral multifocal pneumonia consistent with aspiration, covered with broad-spectrum antibiotics. The patient is currently on accommodation is also Levaquin and vancomycin. Strongly suspect an aspiration based on his history of CVA/dysphagia 2 history of left brain stem stroke in June 2016 with residual right facial weakness in addition to weakness in the right upper and right lower extremity, impaired swallow 3 dysphagia secondary to above the patient has a PEG tube in place 4 dyspnea secondary to above 5 remote history of left lower extremity DVT and pulmonary embolism completed anticoagulation treatment 6 hypertension 7 hyperlipidemia 8 acute hypoxemic respiratory failure secondary to above 9 acute lactic acidosis secondary to above 10 diabetes mellitus with some underlying hyperglycemia related to underlying pneumonia. Currently on Levemir 20 units in addition to NovoLog sliding scale coverage Plan Sputum culture shows presumptive staph aureus, we will await the final results of the culture. Patient remains afebrile, clinically he reports being less short of breath, however he still has a loose productive cough with production of large amount of mostly clear phlegm. We spoke to patient's speech pathologist, and the patient is clearly consuming more than the recommended amount via mouth. We will repeat the patient's modified barium swallow tomorrow. For now continue with current antibiotic coverage, continue nebulized bronchodilators. Patient remains stable otherwise. No acute events overnight. He didn't aspiration precautions. I performed a history & physical examination of the patient and discussed their management with my nurse practitioner, Adriana Tena. I reviewed the nurse practitioner's note and agree with the documented findings and plan of care. Lung sounds are positive for coarse inspiratory crackles over left upper and lower lobes, a lesser degree over right base. The findings and the impression was discussed with the patient. I attest to the documentation by the nurse practitioner. Time with Patient: Less than 30 <Ingrid Barron - Last Filed: 12/26/17 15:57> Objective - Vital Signs Vital signs: Vital Signs Temp 97.9 F 12/26/17 11:41 Pulse 80 12/26/17 15:46 Resp 16 12/26/17 11:41 BP 102/61 12/26/17 11:41 Pulse Ox 95 12/26/17 12:35 Intake & Output 12/25/17 12/26/17 12/26/17 18:59 06:59 18:59 Intake Total 1650 1370 0 Output Total 200 450 Balance 1450 1370 -450 Weight 88.904 kg Intake: IV 20 Invasive Line 1 20 Intake, IV Titration 1250 Amount Piperacillin-Tazobactam 3 50 .375 gm In Dextrose/Water 1 50ml.bag @ 12.5 mls/hr IVPB Q8H [facility] Rx#: [id number] Sodium Chloride 0.9% 1, 950 000 ml @ 100 mls/hr IV . Q10H [facility] Rx#:[id number] Vancomycin 1,500 mg In 250 Sodium Chloride 0.9% 250 ml @ 125 mls/hr IVPB Q8H [facility] Rx#:[id number] Oral 0 Tube Feeding 400 1350 Output: Urine 200 450 Other: Voiding Method Toilet Toilet Urinal Urinal Urinal # Voids 1 2 - Labs CBC & Chem 7: 12/26/17 05:32 12/26/17 05:32 Labs: Abnormal Lab Results - Last 24 Hours (Table) 12/25/17 12/25/17 12/25/17 Range/Units 08:38 16:24 20:52 WBC (3.8-10.6) k/uL RBC (4.30-5.90) m/uL Hgb (13.0-17.5) gm/dL Hct (39.0-53.0) % Neutrophils # (1.3-7.7) k/uL Carbon Dioxide (22-30) mmol/L Creatinine (0.66-1.25) mg/dL Glucose (74-99) mg/dL POC Glucose (mg/dL) 134 H 120 H (75-99) mg/dL Hemoglobin A1c 9.6 H (4.0-6.0) % Calcium (8.4-10.2) mg/dL 12/26/17 12/26/17 12/26/17 Range/Units 05:32 05:32 05:50 WBC 12.9 H (3.8-10.6) k/uL RBC 3.65 L (4.30-5.90) m/uL Hgb 11.1 L D (13.0-17.5) gm/dL Hct 34.0 L (39.0-53.0) % Neutrophils # 10.9 H (1.3-7.7) k/uL Carbon Dioxide 31 H (22-30) mmol/L Creatinine 0.50 L (0.66-1.25) mg/dL Glucose 129 H (74-99) mg/dL POC Glucose (mg/dL) 145 H (75-99) mg/dL Hemoglobin A1c (4.0-6.0) % Calcium 8.3 L (8.4-10.2) mg/dL 12/26/17 Range/Units 11:23 WBC (3.8-10.6) k/uL RBC (4.30-5.90) m/uL Hgb (13.0-17.5) gm/dL Hct (39.0-53.0) % Neutrophils # (1.3-7.7) k/uL Carbon Dioxide (22-30) mmol/L Creatinine (0.66-1.25) mg/dL Glucose (74-99) mg/dL POC Glucose (mg/dL) 169 H (75-99) mg/dL Hemoglobin A1c (4.0-6.0) % Calcium (8.4-10.2) mg/dL Microbiology - Last 24 Hours (Table) 12/25/17 08:00 Gram Stain - Preliminary Sputum Sputum Culture - Preliminary Presumptive Staph aureus 12/25/17 08:50 Urine Culture - Final Urine,Clean Catch 12/25/17 08:30 Blood Culture - Preliminary Blood No Growth after 24 hours 12/25/17 04:50 Blood Culture - Preliminary Blood No Growth after 24 hours 12/25/17 08:50 Nasal Screen MRSA/MSSA ([facility]) - Preliminary Nasal Swab Assessment and Plan Plan: Patient has a presumptive staph aureus in the sputum. Continue the vancomycin awaiting final cultures and sensitivities. Clinically improved. We'll continue to follow make further recommendations based on his progress.
[2017-12-26 16:32] LABS: Glucose,Whole Blood 173 mg/dL (75-99)
[2017-12-26] MEDS: ATORVASTATIN 20 MG TAB PO SCH (20:08)
[2017-12-26 20:46] LABS: Glucose,Whole Blood 118 mg/dL (75-99)
[2017-12-26] MEDS: INSULIN DETEMIR 100 UNIT/ML 10 ML VIAL SQ SCH (21:52)
--- NOTE | 2017-12-26 22:39 | P.PN ---
Subjective Progress Note Date: 12/26/17 This is a 52-year-old male patient known to ID service as he was seen in June 2016 at which time he was hospitalized for acute left brain stem stroke. Patient states overall he has been doing very well and still follows with speech therapy only. He follows with KD/therapist at [facility]. Patient did have a PEG tube placed for chronic dysphagia which was removed. He had ongoing dysphagia and a niece and fundoplication was done in December 2016. By May 2017 he had narrowing of the distal esophagus and underwent balloon dilatation. Following that he had spasm stenosis of the proximal esophagus without aspiration or penetration but due to ongoing symptoms of dysphagia and risk for aspiration a PEG tube was reinserted. He was recently treated for pneumonia in October 2017 and sputum culture was only positive for Clare albicans and Clare glabrata. He was discharged on Avelox. Patient states he has been doing very well since his discharge but a couple days ago he started having shakes like tremors. He denies having any fever or chills at home. Then last evening he became very short of breath with cough and congestion and drove himself into [facility] emergency center for evaluation. He had a CAT scan in December of the chest that showed multifocal infiltrates bilaterally involving the lower lobes consistent with multifocal pneumonia, persistent diffuse dilatation of the esophagus. Patient denies any recent episode of coughing or possible aspiration that he can recall. He is on oral feedings of soft foods which he states he has done very well with. His white count was at 12.9, temperature max 99.7. His initial pulse ox was 80% on room air. He had hypotension this morning as well but did not require vasopressors. His initial lactic acid was 2.9 and repeat 1.7 patient is status post 1 L of fluid and was admitted to the selective care unit. He has been seen in consultation by Dr. Burgess in. He has been on IV antibiotics the form of Levaquin, Zosyn and vancomycin. Patient states that his breathing status is much improved since his presentation to the emergency center. Patient's blood sugars have been elevated in the 200s. He states he has recently been established with Dr. Vanegas and started on metformin along with his insulin. Hemoglobin A1c is pending. 12/26/2017 patient is feeling considerably better today. He is less short of breath. Fevers have improved. He is denying other interim new difficulties. Is doing nothing by mouth at this point in time until he has further follow-up with surgery. Objective - Vital Signs Vital signs: Vital Signs Temp 96.8 F L 12/26/17 20:00 Pulse 85 12/26/17 21:05 Resp 18 12/26/17 20:00 BP 116/57 12/26/17 20:00 Pulse Ox 98 12/26/17 20:00 Intake & Output 12/26/17 12/26/17 12/27/17 06:59 18:59 06:59 Intake Total 1370 450 450 Output Total 450 Balance 1370 0 450 Intake: IV 20 Invasive Line 1 20 Oral 0 Tube Feeding 1350 450 450 Output: Urine 450 Other: Voiding Method Toilet Urinal Urinal Urinal # Voids 2 - Exam Gen: This is a 52-year-old male patient. He is sitting up in bed and appears to be in no acute distress. No respiratory distress is noted. HEENT: Head is atraumatic, normocephalic. Pupils equal, round. Sclerae is anicteric. Conjunctiva pink. Oral mucous membranes are moist. NECK: Supple. No JVD. No lymphadenopathy. No thyromegaly. LUNGS: Diminished to the bilateral bases. No intercostal retractions. HEART: Regular rate and rhythm. No murmur. ABDOMEN: Soft. Bowel sounds are present. No masses. No tenderness. PEG tube to the left upper quadrant. No redness or drainage noted EXTREMITIES: No pedal edema. No calf tenderness. Dorsalis pedis is +2 bilaterally. NEUROLOGICAL: Patient is awake, alert and oriented x3. Cranial nerves 2 through 12 are grossly intact. - Labs CBC & Chem 7: 12/26/17 05:32 12/26/17 05:32 Labs: Abnormal Lab Results - Last 24 Hours (Table) 12/26/17 12/26/17 12/26/17 Range/Units 05:32 05:32 05:50 WBC 12.9 H (3.8-10.6) k/uL RBC 3.65 L (4.30-5.90) m/uL Hgb 11.1 L D (13.0-17.5) gm/dL Hct 34.0 L (39.0-53.0) % Neutrophils # 10.9 H (1.3-7.7) k/uL Carbon Dioxide 31 H (22-30) mmol/L Creatinine 0.50 L (0.66-1.25) mg/dL Glucose 129 H (74-99) mg/dL POC Glucose (mg/dL) 145 H (75-99) mg/dL Calcium 8.3 L (8.4-10.2) mg/dL 12/26/17 12/26/17 12/26/17 Range/Units 11:23 16:27 20:42 WBC (3.8-10.6) k/uL RBC (4.30-5.90) m/uL Hgb (13.0-17.5) gm/dL Hct (39.0-53.0) % Neutrophils # (1.3-7.7) k/uL Carbon Dioxide (22-30) mmol/L Creatinine (0.66-1.25) mg/dL Glucose (74-99) mg/dL POC Glucose (mg/dL) 169 H 173 H 118 H (75-99) mg/dL Calcium (8.4-10.2) mg/dL Microbiology - Last 24 Hours (Table) 12/25/17 08:00 Gram Stain - Preliminary Sputum Sputum Culture - Preliminary Presumptive Staph aureus 12/25/17 08:50 Urine Culture - Final Urine,Clean Catch 12/25/17 08:30 Blood Culture - Preliminary Blood No Growth after 24 hours 12/25/17 04:50 Blood Culture - Preliminary Blood No Growth after 24 hours Laboratory Results WBC 12.9 k/uL (3.8-10.6) H 12/26/17 05:32 RBC 3.65 m/uL (4.30-5.90) L 12/26/17 05:32 Hgb 11.1 gm/dL (13.0-17.5) L D 12/26/17 05:32 Hct 34.0 % (39.0-53.0) L 12/26/17 05:32 MCV 93.1 fL (80.0-100.0) 12/26/17 05:32 MCH 30.4 pg (25.0-35.0) 12/26/17 05:32 MCHC 32.6 g/dL (31.0-37.0) 12/26/17 05:32 RDW 13.7 % (11.5-15.5) 12/26/17 05:32 Plt Count 182 k/uL (150-450) 12/26/17 05:32 Neutrophils % 84 % 12/26/17 05:32 Lymphocytes % 10 % 12/26/17 05:32 Monocytes % 5 % 12/26/17 05:32 Eosinophils % 0 % 12/26/17 05:32 Basophils % 0 % 12/26/17 05:32 Neutrophils # 10.9 k/uL (1.3-7.7) H 12/26/17 05:32 Lymphocytes # 1.3 k/uL (1.0-4.8) 12/26/17 05:32 Monocytes # 0.6 k/uL (0-1.0) 12/26/17 05:32 Eosinophils # 0.1 k/uL (0-0.7) 12/26/17 05:32 Basophils # 0.0 k/uL (0-0.2) 12/26/17 05:32 PT 9.8 sec (9.0-12.0) 12/25/17 04:50 INR 1.0 (<1.2) 12/25/17 04:50 APTT 22.5 sec (22.0-30.0) 12/25/17 04:50 D-Dimer 0.97 mg/L FEU (<0.60) H 12/25/17 04:50 Sample Site lbrac 12/25/17 05:15 ABG pH 7.37 (7.35-7.45) 12/25/17 05:15 ABG pCO2 50 mmHg (35-45) H 12/25/17 05:15 ABG pO2 65 mmHg (83-108) L 12/25/17 05:15 ABG HCO3 28 mmol/L (21-25) H 12/25/17 05:15 ABG Total CO2 18 mmol/L (19-24) L 12/25/17 05:15 ABG O2 Saturation 92.0 % (94-97) L 12/25/17 05:15 ABG Base Excess 2.6 mmol/L 12/25/17 05:15 Jose Angel Test yes 12/25/17 05:15 FiO2 100 % 12/25/17 05:15 Sodium 137 mmol/L (137-145) 12/26/17 05:32 Potassium 4.2 mmol/L (3.5-5.1) 12/26/17 05:32 Chloride 100 mmol/L (98-107) 12/26/17 05:32 Carbon Dioxide 31 mmol/L (22-30) H 12/26/17 05:32 Anion Gap 6 mmol/L 12/26/17 05:32 BUN 13 mg/dL (9-20) 12/26/17 05:32 Creatinine 0.50 mg/dL (0.66-1.25) L 12/26/17 05:32 Est GFR (CKD-EPI)AfAm >90 (>60 ml/min/1.73 sqM) 12/26/17 05:32 Est GFR (CKD-EPI)NonAf >90 (>60 ml/min/1.73 sqM) 12/26/17 05:32 Glucose 129 mg/dL (74-99) H 12/26/17 05:32 POC Glucose (mg/dL) 118 mg/dL (75-99) H 12/26/17 20:42 POC Glu Clothes Shaker ID Nakia Up 12/26/17 20:[address] Glu mg/dL 229 12/25/17 08:38 Hemoglobin A1c 9.6 % (4.0-6.0) H 12/25/17 08:38 Plasma Lactic Acid Calin 1.7 mmol/L (0.7-2.0) 12/25/17 08:30 Calcium 8.3 mg/dL (8.4-10.2) L 12/26/17 05:32 Magnesium 1.7 mg/dL (1.6-2.3) 12/26/17 05:38 Total Bilirubin 0.6 mg/dL (0.2-1.3) 12/25/17 04:50 AST 17 U/L (17-59) 12/25/17 04:50 ALT 26 U/L (21-72) 12/25/17 04:50 Alkaline Phosphatase 107 U/L (38-126) 12/25/17 04:50 Total Creatine Kinase 35 U/L (55-170) L 12/25/17 04:50 CK-MB (CK-2) 0.9 ng/mL (0.0-2.4) 12/25/17 04:50 CK-MB (CK-2) Rel Index 2.6 12/25/17 04:50 Troponin I <0.012 ng/mL (0.000-0.034) 12/25/17 04:50 NT-Pro-B Natriuret Pep 53 pg/mL 12/25/17 04:50 Total Protein 7.2 g/dL (6.3-8.2) 12/25/17 04:50 Albumin 3.8 g/dL (3.5-5.0) 12/25/17 04:50 Urine Color Yellow 12/25/17 08:50 Urine Appearance Clear (Clear) 12/25/17 08:50 Urine pH 5.5 (5.0-8.0) 12/25/17 08:50 Ur Specific [place] 1.050 (1.001-1.035) H 12/25/17 08:50 Urine Protein Trace (Negative) H 12/25/17 08:50 Urine Glucose (UA) Trace (Negative) H 12/25/17 08:50 Urine Ketones Negative (Negative) 12/25/17 08:50 Urine Blood Negative (Negative) 12/25/17 08:50 Urine Nitrite Negative (Negative) 12/25/17 08:50 Urine Bilirubin Negative (Negative) 12/25/17 08:50 Urine Urobilinogen <2.0 mg/dL (<2.0) 12/25/17 08:50 Ur Leukocyte Esterase Negative (Negative) 12/25/17 08:50 Microbiology 12/25/17 08:00 Sputum Gram Stain - Preliminary 12/25/17 08:00 Sputum Sputum Culture - Preliminary Presumptive Staph aureus 12/25/17 08:50 Urine,Clean Catch Urine Culture - Final 12/25/17 08:30 Blood Blood Culture - Preliminary No Growth after 24 hours 12/25/17 04:50 Blood Blood Culture - Preliminary No Growth after 24 hours 12/25/17 08:50 Nasal Swab Nasal Screen MRSA/MSSA ([facility]) - Preliminary - Imaging and Cardiology Chest x-ray: report reviewed (Bibasal infiltrates) Assessment and Plan (1) Multifocal pneumonia Narrative/Plan: This pleasant 52-year-old gentleman is noted had the left brain stem stroke with had quite good recovery overall except for his dysphagia and esophageal dysmotility. He recently had pneumonia and was treated with moxifloxacin. He however developed significant sudden shortness of breath in multifocal pneumonia. He does relate to a history of MRSA in the past and consequently antibiotic therapy with vancomycin and Zosyn will be continued at this time. Cultures are in progress which will help define his course of antibiotic therapy the time of his discharge. Is noted to computed tomography scan shows the multifocal pneumonia and with a dilated esophagus that is fluid filled, aspiration events appear to be the most likely. The patient has been trying to eat as of late which may be part of the etiology of the current problem. With suggest that he does not attempt to eat food at this point in time until he has further evaluations. May also need to have further evaluation from the surgeon as to whether or not further distal dilatation can be done to the esophagus to improve esophageal emptying which may then reduce risk of further pneumonia. Leukocytosis is noted and will be monitored. 12/26/2017 patient is doing somewhat better, he is much less short of breath. Fevers have improved. He continues to have leukocytosis. He does relate that his breathing is better he is still coughing some sputum and having no difficulties with his tube feeds through his PEG tube at this time. Sputum culture with staph aureus awaiting if it's MRSA or not. Consider continue current antibiotic therapy in the form of Zosyn and vancomycin until we have further data. He is tolerating the vancomycin therapy well. Patient relates his ALLERGY was elevated creatinine. Creatinine is normal today. Being monitored. Culture will determine our course of antibiotic therapy at discharge. Current Visit: Yes Status: Acute Code(s): J18.9 - PNEUMONIA, UNSPECIFIED ORGANISM SNOMED Code(s): 406329221 (2) Fever Current Visit: Yes Status: Acute Code(s): R50.9 - FEVER, UNSPECIFIED SNOMED Code(s): 826457914 (3) Dysphagia Current Visit: No Status: Chronic Code(s): R13.10 - DYSPHAGIA, UNSPECIFIED SNOMED Code(s): 51636720
[2017-12-27] MEDS: VANCOMYCIN 1,500 MG in SODIUM CHLORIDE 0.9% 250 ML IVPB SCH ×2 (00:58→10:03)
[2017-12-27] MEDS: PIPERACILLIN-TAZOBACTAM 3.375 GM in DEXTROSE/WATER 1 50ML.BAG IVPB SCH ×3 (03:58→22:05)
[2017-12-27 06:24] LABS: Glucose,Whole Blood 95 mg/dL (75-99)
[2017-12-27] MEDS: KETOROLAC 30 MG/ML 1 ML VIAL IVP SCH ×4 (06:25→23:38)
[2017-12-27] MEDS: INSULIN ASPART 100 UNIT/ML 1 ML 10 ML VIAL SQ SCH ×4 (06:35→22:06)
[2017-12-27] MEDS: PANTOPRAZOLE 40 MG TABLET PO SCH (06:36)
[2017-12-27] MEDS ORDERED: VANCOMYCIN TROUGH DUE 1 EACH MISC MISCELLANE ONE (08:00)
[2017-12-27 08:06] LABS: Basophils % (A) 0 %; Eosinophils # (A) 0.1 k/uL (0-0.7); Eosinophils % (A) 2 %; HGB 11.1 gm/dL (13.0-17.5); Lymphocytes # (A) 0.7 k/uL (1.0-4.8); Lymphocytes % (A) 11 %; MCH 31.1 pg (25.0-35.0); MCHC 32.6 g/dL (31.0-37.0); MCV 95.4 fL (80.0-100.0); Mean Platelet Volume 6.8; Monocytes # (A) 0.3 k/uL (0-1.0); Monocytes % (A) 5 %; Neutrophils # (A) 5.1 k/uL (1.3-7.7); Neutrophils % (A) 80 %; Platelet Count 173 k/uL (150-450); RBC 3.56 m/uL (4.30-5.90); RDW 13.8 % (11.5-15.5); WBC 6.4 k/uL (3.8-10.6)
[2017-12-27 08:18] LABS: Anion Gap 6 mmol/L; Blood Urea Nitrogen 16 mg/dL (9-20); Calcium 8.5 mg/dL (8.4-10.2); Carbon Dioxide 33 mmol/L (22-30); Chloride 101 mmol/L (98-107); Glucose 75 mg/dL (74-99); Potassium 4.2 mmol/L (3.5-5.1); Sodium 140 mmol/L (137-145)
[2017-12-27] MEDS: GABAPENTIN 300 MG CAP PO SCH ×3 (08:58→19:49)
[2017-12-27] MEDS: ESCITALOPRAM 20 MG TAB PO SCH (08:59)
[2017-12-27] MEDS: MAGNESIUM OXIDE 400 MG TAB PO SCH (08:59)
[2017-12-27] MEDS: METOPROLOL TARTRATE 25 MG TAB PO SCH ×2 (08:59→19:50)
[2017-12-27] MEDS: FAMOTIDINE 20 MG TAB PO SCH (08:59)
[2017-12-27] MEDS: ENOXAPARIN 40 MG/0.4 ML SYRINGE SQ SCH (09:12)
[2017-12-27] MEDS: ASPIRIN 325 MG TAB PO SCH (09:12)
[2017-12-27] MEDS: IPRATROPIUM-ALBUTEROL 3 ML NEB INHALATION SCH ×4 (09:27→19:48)
[2017-12-27 09:54] LABS: Glucose,Whole Blood 79 mg/dL (75-99)
--- NOTE | 2017-12-27 10:07 | P.PN ---
Subjective Progress Note Date: 12/27/17 Principal diagnosis: Aspiration pneumonia dysphagia No complaints. Anticipating discharge. Objective - Vital Signs Vital signs: Vital Signs Temp 97.7 F 12/27/17 07:44 Pulse 79 12/27/17 09:36 Resp 16 12/27/17 07:44 BP 132/86 12/27/17 07:44 Pulse Ox 100 12/27/17 07:44 Intake & Output 12/26/17 12/27/17 12/27/17 18:59 06:59 18:59 Intake Total 450 1950 Output Total 450 700 Balance 0 1250 Weight 91.6 kg Intake: Intake, IV Titration 600 Amount Piperacillin-Tazobactam 3 100 .375 gm In Dextrose/Water 1 50ml.bag @ 12.5 mls/hr IVPB Q8H [facility] Rx#: [id number] Vancomycin 1,500 mg In 500 Sodium Chloride 0.9% 250 ml @ 125 mls/hr IVPB Q8H [facility] Rx#:[id number] Oral 0 Tube Feeding 450 1350 Output: Urine 450 700 Other: Voiding Method Urinal Urinal # Voids 2 - Exam General appearance: The patient is alert, oriented, in no acute distress. HET: Head is normocephalic and atraumatic. Pupils are equal and reactive. Oropharynx is clear without lesions. Neck: Supple without lymphadenopathy. Trachea midline. Heart: S1 S2. Regular rate and rhythm. Lungs: No crackles or wheezes are heard. Diminished bilaterally in bases. Abdomen: Soft, nontender, PEG with tube feeds nondistended with bowel sounds. No peritoneal signs. No palpable organomegaly or masses. Extremities: Normal skin color and turgor. No cyanosis, rash, ulceration, clubbing, or edema. Radial and pedal pulses are 2/4 bilaterally. Neurological: No focal deficits. Strength and sensation are grossly intact. - Labs CBC & Chem 7: 12/27/17 07:27 12/27/17 07:27 Labs: Abnormal Lab Results - Last 24 Hours (Table) 12/26/17 12/26/17 12/26/17 Range/Units 11:23 16:27 20:42 RBC (4.30-5.90) m/uL Hgb (13.0-17.5) gm/dL Hct (39.0-53.0) % Lymphocytes # (1.0-4.8) k/uL Carbon Dioxide (22-30) mmol/L POC Glucose (mg/dL) 169 H 173 H 118 H (75-99) mg/dL 12/27/17 12/27/17 Range/Units 07:27 07:27 RBC 3.56 L (4.30-5.90) m/uL Hgb 11.1 L (13.0-17.5) gm/dL Hct 34.0 L (39.0-53.0) % Lymphocytes # 0.7 L (1.0-4.8) k/uL Carbon Dioxide 33 H (22-30) mmol/L POC Glucose (mg/dL) (75-99) mg/dL Microbiology - Last 24 Hours (Table) 12/25/17 04:50 Blood Culture - Preliminary Blood No Growth after 48 hours 12/25/17 08:50 Nasal Screen MRSA/MSSA ([facility]) - Final Nasal Swab 12/25/17 08:00 Gram Stain - Preliminary Sputum Sputum Culture - Preliminary Presumptive Staph aureus 12/25/17 08:50 Urine Culture - Final Urine,Clean Catch 12/25/17 08:30 Blood Culture - Preliminary Blood No Growth after 24 hours Assessment and Plan (1) Dysphagia Narrative/Plan: Ct persistent dilated fluid filled esophagus. Underlying motility disorder cannot be entirely excluded. Current Visit: No Status: Chronic Code(s): R13.10 - DYSPHAGIA, UNSPECIFIED SNOMED Code(s): 73128178 (2) History of Davis fundoplication Current Visit: Yes Status: Acute Code(s): Z98.890 - OTHER SPECIFIED POSTPROCEDURAL STATES SNOMED Code(s): 463566082 (3) Gastrostomy in place Current Visit: Yes Status: Acute Code(s): Z93.1 - GASTROSTOMY STATUS SNOMED Code(s): 461371192 (4) Multifocal pneumonia Current Visit: Yes Status: Acute Code(s): J18.9 - PNEUMONIA, UNSPECIFIED ORGANISM SNOMED Code(s): 192526756 (5) Aspiration pneumonia Current Visit: No Status: Acute Code(s): J69.0 - PNEUMONITIS DUE TO INHALATION OF FOOD AND VOMIT SNOMED Code(s): 811919935 (6) H/O: CVA (cerebrovascular accident) Current Visit: Yes Status: Acute Code(s): Z86.73 - PRSNL HX OF TIA (TIA), AND CEREB INFRC W/O RESID DEFICITS SNOMED Code(s): 897224818 Plan: 1. Dr. Mckinney recommends general surgical consult for endoscopic evaluation. Continue with tube feeds as previously ordered. Assessment and plan of care discussed with Dr. Mckinney
[2017-12-27] MEDS: SODIUM CHLORIDE 0.9% 1,000 ML IV SCH ×2 (10:25→13:18)
--- NOTE | 2017-12-27 10:40 | P.PN ---
Subjective Progress Note Date: 12/27/17 Principal diagnosis: Acute bilateral multifocal pneumonia consistent with aspiration, covered with broad-spectrum antibiotics. A 52-year-old male patient known to me from previous hospitalization as the patient has had a previous brainstem stroke and has suffered from chronic dysphagia and has been hospitalized in the past for bouts of respiratory tract infection/pneumonia/aspiration. The patient was last seen by our services in July 2017. At that time the patient had a bibasilar opacity and persistent right upper lobe patchy opacity consistent with pneumonia. The patient was still having swallowing difficulties and dysphagia. As mentioned he has had a previous left-sided brainstem CVA leading to right-sided weakness involving the face upper and lower extremity and difficulty with speech and swallow. The patient had a PEG tube inserted for chronic dysphagia and ultimately the PEG tube was removed as the patient was improving and his swallow process is also improved. Subsequently was seen the general surgeon, Dr. Michele harvey for symptoms of dysphagia and the patient had a Davis fundoplication on 2016. His postop esophagram showed no evidence of any leak and the patient had no significant obstruction. The patient had continued to have symptoms of dysphagia and further evaluation by an EGD that was done on 05/11/2017 showed that the patient had some narrowing in the distal esophagus and the patient underwent balloon dilatation of the esophagus. The most recent swallow evaluation was done on 06/04/2017 and the patient had some spasms/stenosis of the proximal esophagus without evidence of any aspiration or penetration. Based on his ongoing symptoms of dysphagia and the risk of aspiration, a PEG tube was reinserted and currently the patient utilizing PEG tube and oral feeding. He takes 50% of his oral intake for the PEG tube. The patient utilizing Jevity and he uses around 5 cans of Jevity on a daily basis and he bolus feeds through his PEG tube. 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 Note that his last bout of pneumonia was in October 2017. At that time the patient presented with productive cough and hypotension and he had a left lower lobe pneumonia for which she was treated and the patient was discharged home on Avelox 400 mg by mouth daily. During this current admission, the patient acute decompensation of his history status. Within the past 24-48 hours he started having increased cough and congestion and he was producing purulent material. He was having also heaviness in his chest. The workup in the emergency included a CT angios the chest that showed multifocal infiltrates bilaterally involving the lower lobes consistent with multifocal pneumonia. There was still persistent diffuse dilatation of the esophagus. The PEG tube was also seen and it was in place. Based on all this, the patient was started on accommodation of Zosyn and Levaquin and vancomycin. His white cell count is at 12.9. His blood pressure with a pH of 7.37 with a pCO2 of 50 and pO2 of 65 his lactic acid level was at 2.9. His blood sugar was at 246. Urinalysis was negative. On 12/26/2017 patient seen in follow-up on selective care unit. He is awake alert, in no acute distress, room air oxygen is 95%, patient has been afebrile, no chills. Still has a frequent loose cough, with production of clear phlegm. Hemodynamically stable, sputum culture from 12/25/2017 shows presumptive staph aureus, blood cultures have been negative thus far. Urine culture has been negative. he remains on empiric antibiotics in the form of Levaquin and vancomycin. Yesterday we consult the speech therapy for evaluation of patient' s swallow. Patient had been working with an outpatient speech pathologist however she states he had missed several appointments. He is currently on tube feedings of Glucerna 1.2 at a rate of 250 ML per hour, and he is receiving 200 mL of water flushes every 4 hours. From pulmonary standpoint he reports being less short of breath and less congested. Lung sounds are positive for coarse rales over left upper and lower lobes. Today's lab work has been reviewed, have a BCC is 12.9, hemoglobin is 11.1, serum sodium is 137, potassium is 4.2, CO2 31, B1 is 13, creatinine 0.50. After speaking with speech pathologist who regularly follows the patient on an outpatient basis, it is clear that the patient is consuming more than the recommended amount of his intake by mouth. Regularly patient was prescribed free water in between meals not with meals. And some limited oral intake of mashed potatoes, of limited amount for pleasure feeds only. Patient admits that he takes and about 50% of his dietary intake by mouth. His last modified barium swallow was back in May. We will request speech pathologist to repeated tomorrow to rule out silent aspiration. On 12/27/2017 patient seen in follow-up on selective care unit. He is scheduled for modified barium swallow today to rule out silent aspiration. Clinically patient remains stable, denies any worsening dyspnea, lung sounds are still positive for coarse respiratory crackles over bilateral bases, more so on the left. No final culture results are available from the sputum culture that showed presumptive staph aureus. Patient is presently on a combination of Zosyn and vancomycin, no new chest x-ray today, no fever, no chills. Patient has a frequent productive cough with clear to yellow sputum. He is requesting to go home today. Today's lab work was reviewed, WBC is down to 6.4, hemoglobin is 11.1, sodium is 140, potassium is 4.2, CO2 33, BUN 16, creatinine 0.81. Clinically patient remains stable, will await the results of the modified barium swallow, and the results of the final sputum culture to make a decision about the discharge antibiotics. Objective - Vital Signs Vital signs: Vital Signs Temp 97.7 F 12/27/17 07:44 Pulse 79 12/27/17 09:36 Resp 16 12/27/17 07:44 BP 132/86 12/27/17 07:44 Pulse Ox 100 12/27/17 07:44 Intake & Output 12/26/17 12/27/17 12/27/17 18:59 06:59 18:59 Intake Total 450 1950 Output Total 450 700 Balance 0 1250 Weight 91.6 kg Intake: Intake, IV Titration 600 Amount Piperacillin-Tazobactam 3 100 .375 gm In Dextrose/Water 1 50ml.bag @ 12.5 mls/hr IVPB Q8H [facility] Rx#: [id number] Vancomycin 1,500 mg In 500 Sodium Chloride 0.9% 250 ml @ 125 mls/hr IVPB Q8H [facility] Rx#:[id number] Oral 0 Tube Feeding 450 1350 Output: Urine 450 700 Other: Voiding Method Urinal Urinal # Voids 2 - Exam No acute distress, oriented 3. HEENT examination is grossly unremarkable. Mucous membranes are moist. No oral lesions. Neck supple. Full range of motion. No adenopathy thyromegaly or neck vein distention. Cardiovascular examination reveals regular rhythm rate. S1-S2 normal. No S3 or S4. No discernible murmur noted. Lungs reveal diminished breath on the lung bases along with bibasilar crackles, more so on the left. Abdomen soft bowel sounds are heard. No masses or tenderness. PEG tube is present for left upper quadrant, with tube feedings infusing continuously. Extremities are intact. No cyanosis clubbing or edema.Examination of the extremities revealed easily palpable radial, femoral and pedal pulses. There was no cyanosis, clubbing or edema. Skin is without rash or lesion.Examination of the skin revealed no evidence of significant rashes, suspicious appearing nevi or other concerning lesions. Neurologic examination is shows some limited right-sided weakness including the right face upper and lower extremity related to a previous brainstem stroke. Otherwise patient is awake and alert and following commands and answering questions appropriately. - Labs CBC & Chem 7: 12/27/17 07:27 12/27/17 07:27 Labs: Abnormal Lab Results - Last 24 Hours (Table) 12/26/17 12/26/17 12/26/17 Range/Units 11:23 16:27 20:42 RBC (4.30-5.90) m/uL Hgb (13.0-17.5) gm/dL Hct (39.0-53.0) % Lymphocytes # (1.0-4.8) k/uL Carbon Dioxide (22-30) mmol/L POC Glucose (mg/dL) 169 H 173 H 118 H (75-99) mg/dL 12/27/17 12/27/17 Range/Units 07:27 07:27 RBC 3.56 L (4.30-5.90) m/uL Hgb 11.1 L (13.0-17.5) gm/dL Hct 34.0 L (39.0-53.0) % Lymphocytes # 0.7 L (1.0-4.8) k/uL Carbon Dioxide 33 H (22-30) mmol/L POC Glucose (mg/dL) (75-99) mg/dL Microbiology - Last 24 Hours (Table) 12/25/17 04:50 Blood Culture - Preliminary Blood No Growth after 48 hours 12/25/17 08:50 Nasal Screen MRSA/MSSA ([facility]) - Final Nasal Swab 12/25/17 08:00 Gram Stain - Preliminary Sputum Sputum Culture - Preliminary Presumptive Staph aureus 12/25/17 08:50 Urine Culture - Final Urine,Clean Catch 12/25/17 08:30 Blood Culture - Preliminary Blood No Growth after 24 hours Assessment and Plan Plan: Assessment: 1 acute bilateral multifocal pneumonia consistent with aspiration, covered with broad-spectrum antibiotics. The patient is currently on accommodation is also Levaquin and vancomycin. Strongly suspect an aspiration based on his history of CVA/dysphagia 2 history of left brain stem stroke in June 2016 with residual right facial weakness in addition to weakness in the right upper and right lower extremity, impaired swallow 3 dysphagia secondary to above the patient has a PEG tube in place 4 dyspnea secondary to above 5 remote history of left lower extremity DVT and pulmonary embolism completed anticoagulation treatment 6 hypertension 7 hyperlipidemia 8 acute hypoxemic respiratory failure secondary to above 9 acute lactic acidosis secondary to above 10 diabetes mellitus with some underlying hyperglycemia related to underlying pneumonia. Currently on Levemir 20 units in addition to NovoLog sliding scale coverage Plan Will await the results of the modified barium swallow, and the final results of the sputum culture negative decision on the discharge antibiotics. Clinically patient remains stable, denies any dyspnea, no fever, no chills, does have productive cough, with production of clear and yellow sputum. Otherwise remains stable, continue with current medical treatment. I performed a history & physical examination of the patient and discussed their management with my nurse practitioner, Adriana Tena. I reviewed the nurse practitioner's note and agree with the documented findings and plan of care. Lung sounds are positive for coarse inspiratory crackles over left upper and lower lobes, a lesser degree over right base. The findings and the impression was discussed with the patient. I attest to the documentation by the nurse practitioner. Time with Patient: Less than 30
[2017-12-27 12:10] LABS: Glucose,Whole Blood 92 mg/dL (75-99)
--- NOTE | 2017-12-27 13:14 | FL ---
EXAMINATION TYPE: FL barium swallow w video DATE OF EXAM: 12/27/2017 COMPARISON: NONE HISTORY: Aspiration pneumonia brainstem infarct TECHNIQUE: Fluoroscopy. FINDINGS: Fluoroscopic guidance was provided for the procedure performed in conjunction with the [facility] pathology department. Please see complete report forthcoming from the Speech Pathology departmen t. Various consistencies from thin liquid to solids were administered. Fluoroscopy time 2 minutes 44 seconds Number of images: 0. No aspiration was evident. There is possible transient mild penetration with nectar thick liquids. In version of the epiglottis was infrequent. Significant pooling within the hypopharynx and vallecula wa s evident. There is some delay in bolus propulsion into the hypopharynx. IMPRESSION: 1. No aspiration was identified during the exam. 2. Significant pooling within the hypopharynx during the swallowing.
[2017-12-27 13:52] VITALS: BMI 29.0
--- NOTE | 2017-12-27 14:37 | P.PN ---
Subjective Progress Note Date: 12/27/17 Patient feeling much better today, still having a pretty-productive cough which is also blood tinged and yellow. Afebrile overnight, maintaining saturations on RA. Was doing well with tube feeds on Glucerna, however now there appears to be a leak around the stopper, Patient scheduled to have video swallo today. No acute events overnight Objective - Vital Signs Vital signs: Vital Signs Temp 97.7 F 12/27/17 11:25 Pulse 88 12/27/17 11:25 Resp 16 12/27/17 11:25 BP 121/73 12/27/17 11:25 Pulse Ox 97 12/27/17 11:25 Intake & Output 12/26/17 12/27/17 12/27/17 18:59 06:59 18:59 Intake Total 450 1950 Output Total 450 700 600 Balance 0 1250 -600 Weight 91.6 kg 91.6 kg Intake: Intake, IV Titration 600 Amount Piperacillin-Tazobactam 3 100 .375 gm In Dextrose/Water 1 50ml.bag @ 12.5 mls/hr IVPB Q8H [facility] Rx#: [id number] Vancomycin 1,500 mg In 500 Sodium Chloride 0.9% 250 ml @ 125 mls/hr IVPB Q8H [facility] Rx#:[id number] Oral 0 Tube Feeding 450 1350 Output: Urine 450 700 600 Other: Voiding Method Urinal Urinal # Voids 2 - Exam Constitutional: No acute distress, conversant, pleasant Eyes: Anicteric sclerae, moist conjunctiva, no lid-lag, PERRLA ENMT: NC/AT,Oropharynx clear, no erythema, exudates Neck:Supple, FROM, no masses, or JVD, No carotid bruits; No thyromegaly Lungs: clear to auscultation, Clear to percussion, Normal respiratory effort, no accessory muscle use on RA Cardiovascular: Heart regular in rate and rhythm, No murmurs, gallops, or rubs no peripheral edema Abdominal: Soft Nontender, nom distended, no guarding, no rebound or rigidity, Normoactive bowel sounds No hepatomegaly, No splenomegaly, No palpable mass No abdominal wall hernia noted Skin: Normal temperature, tone, texture, turgor, No induration No subcutaneous nodules, No rash, lesions, No ulcers Extremities:No digital cyanosis No clubbing, Pedal pulses intact and symmetrical Radial pulses intact and symmetrical Normal gait and station, No calf tenderness Psychiatric: Alert and oriented to person, place and time, Appropriate affect Intact judgement Neuro: Muscles Strength 5/5 in all 4 extremities, Sensation to light touch grossly present throughout, Cranial nerves II-XII grossly intact. No focal sensory deficits - Labs CBC & Chem 7: 12/27/17 07:27 12/27/17 07:27 Labs: Abnormal Lab Results - Last 24 Hours (Table) 12/26/17 12/26/17 12/27/17 Range/Units 16:27 20:42 07:27 RBC 3.56 L (4.30-5.90) m/uL Hgb 11.1 L (13.0-17.5) gm/dL Hct 34.0 L (39.0-53.0) % Lymphocytes # 0.7 L (1.0-4.8) k/uL Carbon Dioxide (22-30) mmol/L POC Glucose (mg/dL) 173 H 118 H (75-99) mg/dL 12/27/17 Range/Units 07:27 RBC (4.30-5.90) m/uL Hgb (13.0-17.5) gm/dL Hct (39.0-53.0) % Lymphocytes # (1.0-4.8) k/uL Carbon Dioxide 33 H (22-30) mmol/L POC Glucose (mg/dL) (75-99) mg/dL Microbiology - Last 24 Hours (Table) 12/25/17 08:30 Blood Culture - Preliminary Blood No Growth after 48 hours 12/25/17 04:50 Blood Culture - Preliminary Blood No Growth after 48 hours 12/25/17 08:50 Nasal Screen MRSA/MSSA ([facility]) - Final Nasal Swab 12/25/17 08:00 Gram Stain - Preliminary Sputum Sputum Culture - Preliminary Presumptive Staph aureus 12/25/17 08:50 Urine Culture - Final Urine,Clean Catch Assessment and Plan (1) Acute respiratory failure with hypoxemia Narrative/Plan: * now resolved * secondary to multifocal pneumonia * now back to baseline on RA Current Visit: Yes Status: Acute Code(s): J96.01 - ACUTE RESPIRATORY FAILURE WITH HYPOXIA SNOMED Code(s): 657893544 (2) Severe sepsis Narrative/Plan: * Secondary to multifocal pneumonia possibly aspiration related * Patient afebrile, leukocytosis now resolved * Appreciate ID recommendations, Levaquin has been discontinued continue with Zosyn and vancomycin day #3 * sputum culture preliminary staph aureus, blood cultures negative Current Visit: No Status: Resolved Code(s): A41.9 - SEPSIS, UNSPECIFIED ORGANISM; R65.20 - SEVERE SEPSIS WITHOUT SEPTIC SHOCK SNOMED Code(s): 29309448 (3) Multifocal pneumonia Narrative/Plan: * Treatment regimen as above * likely attributed to silent aspiration Current Visit: Yes Status: Acute Code(s): J18.9 - PNEUMONIA, UNSPECIFIED ORGANISM SNOMED Code(s): 846170130 (4) Type 2 diabetes mellitus with hyperglycemia Narrative/Plan: * A1c is 9.6. Initiate Accu-Cheks * Continue maintenance insulin regimen with correctional insulin scale * Also with neuropathy continue gabapentin Current Visit: Yes Status: Acute Code(s): E11.65 - TYPE 2 DIABETES MELLITUS WITH HYPERGLYCEMIA SNOMED Code(s): 331214520893320 (5) Hypomagnesemia Narrative/Plan: * Resolved after placement Current Visit: Yes Status: Resolved Code(s): E83.42 - HYPOMAGNESEMIA SNOMED Code(s): 390921065 (6) Dysphagia Narrative/Plan: * Residual from prior brainstem stroke * PEG tube in place secondary to patient's risk of aspiration * Videoswallow - no aspiration, significant pooling within hypopharynx; speech therapy stating incomplete swallow only recommending water and ice ships, limited 1-2 oz pleasure feeds up to QID * Currently on Glucerna tube feeds per dietary recommendations * Consult general surgery re: PEG tube dysfunction/esophageal dilation Current Visit: No Status: Chronic Code(s): R13.10 - DYSPHAGIA, UNSPECIFIED SNOMED Code(s): 40469878 Plan: Anticipate d/c tomorrow
--- NOTE | 2017-12-27 14:50 | P.GSCN ---
<Perla Lua - Last Filed: 12/27/17 14:24> History of Present Illness Consult date: 12/27/17 Reason for Consult: PEG tube malfunction History of present illness: 52-year-old male being seen at the request of the attending for a surgical eval for a PEG tube that is leaking. Patient has a history of previous brainstem stroke and has suffered chronic dysphagia been hospitalized in the past for bouts of respiratory tract infection with pneumonia aspiration. Patient had a previous left-sided brainstem CVA which led to right side weakness involving the upper right side of the face and lower extremity with difficult speech and swallow. PEG tube was inserted for chronic dysphagia.. The PEG tube was removed when swallowing improve subsequently patient was seen by Dr. riley when patient continued to have symptoms of dysphagia. Postop esophagram showed no evidence of any leak. Repeat EGD done on May 2017 show that the patient had some narrowing of the distal esophagus. Patient underwent balloon dilatation of the esophagus at that time. recent swallow eval was done in May 2017 patient had spasms in stenosis of the proximal esophagus without any evidence of aspiration. Given patient's ongoing symptoms of dysphagia and the risk of aspiration PEG tube was reinserted by Dr. Valladares in July 2017. Patient takes about 50% of his oral intake from the PEG tube. He uses Jevity 5 cans on a daily basis and bolus feeds through the PEG tube additionally the patient does eat some foods such as mashed potatoes and pureed material. Patient has been admitted several times for pneumonia last admission was in October 2017 patient states not certain when the leak occurred in his tube feed. Nursing reports this morning noted that there was what appeared to be a small tear in the tubing distal to the PEG tube near the clamp site currently the tube feeds are on hold a surgical request has been evaluated Review of Systems Essentially unremarkable except as mentioned in the present illness Past Medical History Past Medical History: CVA/TIA, Diabetes Mellitus, Deep Vein Thrombosis (DVT), GERD/Reflux, Hyperlipidemia, Hypertension, Musculoskeletal Disorder, Pulmonary Embolus (PE), Syncope Additional Past Medical History / Comment(s): states "unable to pass barium swallow but able to swallow some foods and fluids." LUMBAR STENOSIS. HX DVT LT CALF, THEN PE. HX IBS. COLON POLYPS, hypertensive cardio vascular disease with left ventricular hypertrophy. cataracts. rt side of body temperature intolerance History of Any Multi-Drug Resistant Organisms: MRSA Year Discovered:: 1-2017 (per patient: culture done at [facility]) MDRO Source:: Sputum Past Surgical History: Appendectomy, Cholecystectomy Additional Past Surgical History / Comment(s): EXPLORATORY LAPAROTOMY, FUSION L4 -L5, colonoscopy, PEG tube. Past Anesthesia/Blood Transfusion Reactions: No Reported Reaction Past Psychological History: Anxiety Past Alcohol Use History: None Reported Additional Past Alcohol Use History / Comment(s): Patient is a lifelong nonsmoker. He drinks alcohol rarely. 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 - Past Family History Father History Unknown: Yes Family Medical History: No Reported History Mother Family Medical History: Cancer, Deep Vein Thrombosis (DVT) Medications and Allergies Home Medications Medication Instructions Recorded Confirmed Type Insulin Glargine [Lantus] 15 unit SQ HS 07/09/16 12/25/17 History Gabapentin 600 mg PO TID 10/13/16 12/25/17 History Metoprolol Tartrate [Lopressor] 25 mg PO BID 10/13/16 12/25/17 History Simvastatin [Zocor] 40 mg PO HS 10/13/16 12/25/17 History Escitalopram [Lexapro] 20 mg PO DAILY 06/13/17 12/25/17 History Omeprazole 40 mg PO BID 06/13/17 12/25/17 History Aspirin 325 mg PO DAILY 09/19/17 12/25/17 History Insulin Aspart [NovoLOG] See Protocol SQ AC-TID 09/19/17 12/25/17 History Ranitidine HCl [Zantac] 300 mg PO DAILY 10/25/17 12/25/17 History Albuterol Inhaler [Ventolin Hfa 2 puff INHALATION RT-Q4H PRN 12/25/17 12/25/17 History Inhaler] Amitriptyline HCl [Elavil] 25 mg PO BID 12/25/17 12/25/17 History EPINEPHrine (Auto Inject) [Epipen] 0.3 mg IM ONCE PRN 12/25/17 12/25/17 History Fluticasone Nasal [place] [Flonase 2 spr EA NOSTRIL DAILY 12/25/17 12/25/17 History Nasal [place]] Loratadine [Claritin] 10 mg PO DAILY 12/25/17 12/25/17 History Allergies Allergy/AdvReac Type Severity Reaction Status Date / Time vancomycin Allergy kidneys Verified 12/25/17 09:11 shut down venom-honey bee Allergy Anaphylaxis Verified 12/25/17 09:11 [bee venom (honey bee)] Surgical - Exam Vital Signs Temp Pulse Resp BP Pulse Ox 99.7 F H 164 H 20 106/60 80 L 12/25/17 04:42 12/25/17 04:42 12/25/17 04:42 12/25/17 04:42 12/25/17 04:42 GENERAL APPEARANCE: 52-year-old male patient is alert, oriented, in no acute distress. Sitting up in a chair states is anxious to go home VITAL SIGNS: Reviewed HEENT: Head is normocephalic and atraumatic. Pupils are equal and reactive. The nares are patent. Oropharynx is clear without lesions. NECK: Supple without lymphadenopathy. Traches midline. HEART: S1, S2. Regular rate and rhythm. Denying chest pain LUNGS: No crackles or wheezes are heard. ABDOMEN: Soft, nontender, nondistended with good bowel sounds. No peritoneal signs. No palpable organomegaly or masses. PEG tube in place distal to the tubing a slight tear noted leaking tube feed Jevity solution EXTREMITIES: Normal skin color and turgor. No cyanosis, rash, ulceration, clubbing or edema. Radial pedal pulses are 2/4 bilaterally. NEUROLOGICAL: No focal deficits. Strength and sensation are grossly intact. Results - Labs 12/27/17 07:27 12/27/17 07:27 Abnormal Lab Results - Last 24 Hours (Table) 12/26/17 12/26/17 12/27/17 Range/Units 16:27 20:42 07:27 RBC 3.56 L (4.30-5.90) m/uL Hgb 11.1 L (13.0-17.5) gm/dL Hct 34.0 L (39.0-53.0) % Lymphocytes # 0.7 L (1.0-4.8) k/uL Carbon Dioxide (22-30) mmol/L POC Glucose (mg/dL) 173 H 118 H (75-99) mg/dL 12/27/17 Range/Units 07:27 RBC (4.30-5.90) m/uL Hgb (13.0-17.5) gm/dL Hct (39.0-53.0) % Lymphocytes # (1.0-4.8) k/uL Carbon Dioxide 33 H (22-30) mmol/L POC Glucose (mg/dL) (75-99) mg/dL Microbiology - Last 24 Hours (Table) 12/25/17 08:30 Blood Culture - Preliminary Blood No Growth after 48 hours 12/25/17 04:50 Blood Culture - Preliminary Blood No Growth after 48 hours 12/25/17 08:50 Nasal Screen MRSA/MSSA ([place]) - Final Nasal Swab 12/25/17 08:00 Gram Stain - Preliminary Sputum Sputum Culture - Preliminary Presumptive Staph aureus 12/25/17 08:50 Urine Culture - Final Urine,Clean Catch Diabetes panel 12/27/17 Range/Units 07:27 Sodium 140 (137-145) mmol/L Potassium 4.2 (3.5-5.1) mmol/L Chloride 101 (98-107) mmol/L Carbon Dioxide 33 H (22-30) mmol/L BUN 16 (9-20) mg/dL Creatinine 0.81 (0.66-1.25) mg/dL Glucose 75 (74-99) mg/dL Calcium 8.5 (8.4-10.2) mg/dL Calcium panel 12/27/17 Range/Units 07:27 Calcium 8.5 (8.4-10.2) mg/dL Pituitary panel 12/27/17 Range/Units 07:27 Sodium 140 (137-145) mmol/L Potassium 4.2 (3.5-5.1) mmol/L Chloride 101 (98-107) mmol/L Carbon Dioxide 33 H (22-30) mmol/L BUN 16 (9-20) mg/dL Creatinine 0.81 (0.66-1.25) mg/dL Glucose 75 (74-99) mg/dL Calcium 8.5 (8.4-10.2) mg/dL Adrenal panel 12/27/17 Range/Units 07:27 Sodium 140 (137-145) mmol/L Potassium 4.2 (3.5-5.1) mmol/L Chloride 101 (98-107) mmol/L Carbon Dioxide 33 H (22-30) mmol/L BUN 16 (9-20) mg/dL Creatinine 0.81 (0.66-1.25) mg/dL Glucose 75 (74-99) mg/dL Calcium 8.5 (8.4-10.2) mg/dL Assessment and Plan Assessment: Impression Chronic dysphagia with the use of PEG tube for nutritional support History of a prior CVA resulting in right side weakness Essential hypertension Type 2 diabetes insulin requiring Malfunctioning PEG tube Multifocal pneumonia Acute hypoxia respiratory failure Plan Tube feeds are on hold Nothing by mouth after midnight for planned procedure in the morning PEG tube will be replaced tomorrow tube feeds to be resumed when appropriate Further surgical recommendations pending will follow with you Surgical consultation note dictated for Dr. Matos The above impression and plan of care have been discussed and directed by signing physician. Perla Lua nurse practitioner acting as scribe for signing physician. <Ally Matos N - Last Filed: 12/27/17 19:03> Surgical - Exam Vital Signs Temp Pulse Resp BP Pulse Ox 99.7 F H 164 H 20 106/60 80 L 12/25/17 04:42 12/25/17 04:42 12/25/17 04:42 12/25/17 04:42 12/25/17 04:42 Results - Labs 12/27/17 07:27 12/27/17 07:27 Abnormal Lab Results - Last 24 Hours (Table) 12/26/17 12/27/17 12/27/17 Range/Units 20:42 07:27 07:27 RBC 3.56 L (4.30-5.90) m/uL Hgb 11.1 L (13.0-17.5) gm/dL Hct 34.0 L (39.0-53.0) % Lymphocytes # 0.7 L (1.0-4.8) k/uL Carbon Dioxide 33 H (22-30) mmol/L POC Glucose (mg/dL) 118 H (75-99) mg/dL 12/27/17 12/27/17 12/27/17 Range/Units 15:09 15:36 16:21 RBC (4.30-5.90) m/uL Hgb (13.0-17.5) gm/dL Hct (39.0-53.0) % Lymphocytes # (1.0-4.8) k/uL Carbon Dioxide (22-30) mmol/L POC Glucose (mg/dL) 63 L 135 H 134 H (75-99) mg/dL Microbiology - Last 24 Hours (Table) 12/25/17 08:30 Blood Culture - Preliminary Blood No Growth after 48 hours 12/25/17 04:50 Blood Culture - Preliminary Blood No Growth after 48 hours 12/25/17 08:50 Nasal Screen MRSA/MSSA ([place]) - Final Nasal Swab Diabetes panel 12/27/17 Range/Units 07:27 Sodium 140 (137-145) mmol/L Potassium 4.2 (3.5-5.1) mmol/L Chloride 101 (98-107) mmol/L Carbon Dioxide 33 H (22-30) mmol/L BUN 16 (9-20) mg/dL Creatinine 0.81 (0.66-1.25) mg/dL Glucose 75 (74-99) mg/dL Calcium 8.5 (8.4-10.2) mg/dL Calcium panel 12/27/17 Range/Units 07:27 Calcium 8.5 (8.4-10.2) mg/dL Pituitary panel 12/27/17 Range/Units 07:27 Sodium 140 (137-145) mmol/L Potassium 4.2 (3.5-5.1) mmol/L Chloride 101 (98-107) mmol/L Carbon Dioxide 33 H (22-30) mmol/L BUN 16 (9-20) mg/dL Creatinine 0.81 (0.66-1.25) mg/dL Glucose 75 (74-99) mg/dL Calcium 8.5 (8.4-10.2) mg/dL Adrenal panel 12/27/17 Range/Units 07:27 Sodium 140 (137-145) mmol/L Potassium 4.2 (3.5-5.1) mmol/L Chloride 101 (98-107) mmol/L Carbon Dioxide 33 H (22-30) mmol/L BUN 16 (9-20) mg/dL Creatinine 0.81 (0.66-1.25) mg/dL Glucose 75 (74-99) mg/dL Calcium 8.5 (8.4-10.2) mg/dL Assessment and Plan Plan: Please see separate note. Agree with above.
[2017-12-27] MEDS ORDERED: DEXTROSE 50%-WATER 50 ML SYRINGE IVP ONE (15:16)
[2017-12-27] MEDS: DEXTROSE 5% IN WATER 1,000 ML IV SCH (15:23)
[2017-12-27 15:30] LABS: Glucose,Whole Blood 63 mg/dL (75-99)
[2017-12-27 15:39] LABS: Glucose,Whole Blood 135 mg/dL (75-99)
[2017-12-27 16:33] LABS: Glucose,Whole Blood 134 mg/dL (75-99)
--- NOTE | 2017-12-27 19:05 | P.PCN ---
Date of Procedure: 12/27/17 Preoperative Diagnosis: Inadequate protein intake, PEG tube malfunction Postoperative Diagnosis: Same Procedure(s) Performed: Mechanical repair of malfunctioning PEG tube at bedside Anesthesia: none Surgeon: Ally Matos Description of Procedure: After verbal consent, the PEG tube and tubing were carefully evaluated. Along the distal length of the 20 inch tubing, a needle pinpoint crack was identified. The adapter was still intact. The distal tip of 3 cm involving the cracked tube was cut using a scissor. The adapter was then reconnected to the tubing. PEG tube malfunction corrected. Surgical procedure canceled for tomorrow. General surgery may follow as needed. May restart tube feeds.
[2017-12-27] MEDS: HYDROcodone/APAP 5-325MG 1 EACH TAB PO PRN (19:49)
[2017-12-27] MEDS: ATORVASTATIN 20 MG TAB PO SCH (19:50)
[2017-12-27 20:13] LABS: Glucose,Whole Blood 128 mg/dL (75-99)
[2017-12-27] MEDS ORDERED: VANCOMYCIN 1,500 MG in SODIUM CHLORIDE 0.9% 250 ML IVPB SCH (21:00)
[2017-12-27] MEDS: INSULIN DETEMIR 100 UNIT/ML 10 ML VIAL SQ SCH (22:09)
[2017-12-28 00:03] LABS: Glucose,Whole Blood 155 mg/dL (75-99)
[2017-12-28 06:07] LABS: Glucose,Whole Blood 96 mg/dL (75-99)
[2017-12-28] MEDS: DEXTROSE 5% IN WATER 1,000 ML IV SCH (06:25)
[2017-12-28] MEDS: INSULIN ASPART 100 UNIT/ML 1 ML 10 ML VIAL SQ SCH (06:36)
[2017-12-28] MEDS: PIPERACILLIN-TAZOBACTAM 3.375 GM in DEXTROSE/WATER 1 50ML.BAG IVPB SCH (06:36)
[2017-12-28] MEDS: KETOROLAC 30 MG/ML 1 ML VIAL IVP SCH (06:36)
[2017-12-28 06:37] LABS: Basophils % (A) 0 %; Eosinophils # (A) 0.1 k/uL (0-0.7); Eosinophils % (A) 1 %; HCT 35.1 % (39.0-53.0); HGB 11.4 gm/dL (13.0-17.5); Lymphocytes # (A) 0.8 k/uL (1.0-4.8); Lymphocytes % (A) 12 %; MCH 30.9 pg (25.0-35.0); MCHC 32.5 g/dL (31.0-37.0); MCV 94.9 fL (80.0-100.0); Mean Platelet Volume 7.5; Monocytes # (A) 0.3 k/uL (0-1.0); Monocytes % (A) 5 %; Neutrophils # (A) 5.2 k/uL (1.3-7.7); Neutrophils % (A) 80 %; Platelet Count 210 k/uL (150-450); RDW 13.8 % (11.5-15.5); WBC 6.5 k/uL (3.8-10.6)
[2017-12-28] MEDS: PANTOPRAZOLE 40 MG TABLET PO SCH (06:37)
[2017-12-28] MEDS: IPRATROPIUM-ALBUTEROL 3 ML NEB INHALATION SCH ×2 (06:47→11:07)
[2017-12-28 06:50] LABS: Calcium 8.5 mg/dL (8.4-10.2); Potassium 4.4 mmol/L (3.5-5.1)
[2017-12-28] MEDS: METOPROLOL TARTRATE 25 MG TAB PO SCH (08:51)
[2017-12-28] MEDS: ASPIRIN 325 MG TAB PO SCH (08:51)
[2017-12-28] MEDS: ESCITALOPRAM 20 MG TAB PO SCH (08:51)
[2017-12-28] MEDS: ENOXAPARIN 40 MG/0.4 ML SYRINGE SQ SCH (08:51)
[2017-12-28] MEDS: MAGNESIUM OXIDE 400 MG TAB PO SCH (08:51)
[2017-12-28] MEDS: FAMOTIDINE 20 MG TAB PO SCH (08:51)
[2017-12-28] MEDS: GABAPENTIN 300 MG CAP PO SCH (08:51)
[2017-12-28 09:04] VITALS: BP 144/86; PULSE 88; RESP 16; TEMP 97.5
--- NOTE | 2017-12-28 09:36 | P.DS ---
Providers Date of admission: 12/25/17 06:28 Expected date of discharge: 12/28/17 Attending physician: Izabel Puente MD Consults: 12/25/17 07:55 Consult Physician Routine Consulting Provider: Ingrid Barron Consult Reason/Comments: acute respiratory failure Do you want consulting provider notified?: Yes 12/25/17 07:58 Consult Physician Routine Consulting Provider: Tyron Coronel Consult Reason/Comments: sepsis/recurrent pneumonia Do you want consulting provider notified?: Yes 12/26/17 08:23 Consult Physician Routine Consulting Provider: Caroline Davis Consult Reason/Comments: evaluate for esophageal dilation Do you want consulting provider notified?: Yes 12/27/17 10:52 Consult Physician Routine Consulting Provider: Shelton Lynn Consult Reason/Comments: eval for esophageal dilation/ Hole in PEG tubing Do you want consulting provider notified?: Yes Primary care physician: Dasha Marsh MD - Discharge Diagnosis(es) (1) Acute respiratory failure with hypoxemia Current Visit: Yes Status: Acute (2) Severe sepsis Current Visit: No Status: Resolved (3) Multifocal pneumonia Current Visit: Yes Status: Acute (4) Type 2 diabetes mellitus with hyperglycemia Current Visit: Yes Status: Acute (5) Hypomagnesemia Current Visit: Yes Status: Resolved (6) Dysphagia Current Visit: No Status: Chronic (7) PEG tube malfunction Current Visit: Yes Status: Acute Hospital Course: The patient is a 52-year-old male that was admitted for acute respiratory failure with hypoxemia secondary to severe sepsis due to multifocal pneumonia attributed to ongoing aspiration. The patient was placed on supplemental oxygen a nonrebreather and was started on breathing treatments and empiric IV antibiotics with vancomycin and Zosyn and Levaquin after presenting with a leukocytosis of approximately 13, elevated lactate level and fevers. ID Dr. Coronel and pulmonary Dr. shaffer were consulted for further recommendations , the patient's antibiotic regimen was refined to vancomycin and Zosyn. Nasal swab was negative for MRSA however sputum culture did grow MRSA. The patient had a history of chronic dysphagia which was residual from her previous brainstem stroke in Jun,. It appears the patient had been noncompliant with ongoing recommendations by speech therapy and his dietitian, and he was eating pured meals, soups, and crackers with the recommendation was only for water and ice chips. The patient had a PEG tube placed secondary to his ongoing aspiration and was receiving tube feeds with Jevity. The patient had a repeat video swallow during this hospitalization which showed no aspiration, but did show significant pooling within the hypopharynx during swallowing. Per speech pathology the patient was noted to have a severely impaired swallow in the pharyngeal phase pharyngeal phase with speech therapy only recommending continuing PLEASURE FEEDS only. Pt was instructed that he may have 2-4 ounces pureed consistencies 1-2x/daily and WATER ONLY with PO intake. Pt verbalized understanding of recommendations, however, compliance has been poor in the past with pt reporting he has been intaking soups, breads, coffee, soda, etc. on presentation . During hospitalization the patient was noted to have PEG tube malfunction a crack and subsequent leaking of tube feeds, general surgery Dr. Matos dilated the PEG tube and cut the distal tip and then reconnected the adapter and corrected the PEG tube malfunction. The patient was restarted on Glucerna tube feeds without any further issues and The patient's antibiotics were refined to include Bactrim to cover for MRSA and he was subsequently sent home and discharged in stable condition with recommendations to follow-up with his PCP Dr. Marsh and Dr. Barron. New prescriptions at discharge Albuterol inhaler Bactrim Constitutional: No acute distress, conversant, pleasant Eyes: Anicteric sclerae, moist conjunctiva, no lid-lag, PERRLA ENMT: NC/AT,Oropharynx clear, no erythema, exudates Neck:Supple, FROM, no masses, or JVD, No carotid bruits; No thyromegaly Lungs: Clear to auscultation, Clear to percussion, Normal respiratory effort, no accessory muscle use Cardiovascular: Heart regular in rate and rhythm, No murmurs, gallops, or rubs no peripheral edema Abdominal: Soft Nontender, nom distended, no guarding, no rebound or rigidity, Normoactive bowel sounds No hepatomegaly, No splenomegaly, No palpable mass No abdominal wall hernia noted Skin: Normal temperature, tone, texture, turgor, No induration No subcutaneous nodules, No rash, lesions, No ulcers Extremities:No digital cyanosis No clubbing, Pedal pulses intact and symmetrical Radial pulses intact and symmetrical Normal gait and station, No calf tenderness Psychiatric: Alert and oriented to person, place and time, Appropriate affect Intact judgement Neuro: Muscles Strength 5/5 in all 4 extremities, Sensation to light touch grossly present throughout, Cranial nerves II-XII grossly intact. No focal sensory deficits Pertinent Studies: CTA of the chest - Suboptimal study for PE, new multifocal infiltrates bilaterally involving all lobes worrisome for multifocal pneumonia correlate clinically, persistent diffuse dilated esophagus, new PEG tube noted Patient Condition at Discharge: Good Plan - Discharge Summary Discharge Rx Participant: Yes New Discharge Prescriptions: New Sulfamethox-Tmp 200-40Mg/5Ml [Bactrim Suspension] 20 ml PO Q12HR #560 ml Continue Insulin Glargine [Lantus] 15 unit SQ HS Simvastatin [Zocor] 40 mg PO HS Metoprolol Tartrate [Lopressor] 25 mg PO BID Gabapentin 600 mg PO TID Escitalopram [Lexapro] 20 mg PO DAILY Omeprazole 40 mg PO BID Aspirin 325 mg PO DAILY Insulin Aspart [NovoLOG] See Protocol SQ AC-TID Ranitidine HCl [Zantac] 300 mg PO DAILY Fluticasone Nasal [place] [Flonase Nasal [place]] 2 spr EA NOSTRIL DAILY EPINEPHrine (Auto Inject) [Epipen] 0.3 mg IM ONCE PRN PRN Reason: Anaphylaxis Loratadine [Claritin] 10 mg PO DAILY Amitriptyline HCl [Elavil] 25 mg PO BID Albuterol Inhaler [Ventolin Hfa Inhaler] 2 puff INHALATION RT-Q4H PRN 7 Days #1 PRN Reason: Shortness Of Breath Discharge Medication List Insulin Glargine [Lantus] 15 unit SQ HS 07/09/16 [History] Gabapentin 600 mg PO TID 10/13/16 [History] Metoprolol Tartrate [Lopressor] 25 mg PO BID 10/13/16 [History] Simvastatin [Zocor] 40 mg PO HS 10/13/16 [History] Escitalopram [Lexapro] 20 mg PO DAILY 06/13/17 [History] Omeprazole 40 mg PO BID 06/13/17 [History] Aspirin 325 mg PO DAILY 09/19/17 [History] Insulin Aspart [NovoLOG] See Protocol SQ AC-TID 09/19/17 [History] Ranitidine HCl [Zantac] 300 mg PO DAILY 10/25/17 [History] Amitriptyline HCl [Elavil] 25 mg PO BID 12/25/17 [History] EPINEPHrine (Auto Inject) [Epipen] 0.3 mg IM ONCE PRN 12/25/17 [History] Fluticasone Nasal [place] [Flonase Nasal [place]] 2 spr EA NOSTRIL DAILY 12/25/17 [ History] Loratadine [Claritin] 10 mg PO DAILY 12/25/17 [History] Albuterol Inhaler [Ventolin Hfa Inhaler] 2 puff INHALATION RT-Q4H PRN 7 Days #1 12/28/17 [Rx] Sulfamethox-Tmp 200-40Mg/5Ml [Bactrim Suspension] 20 ml PO Q12HR #560 ml [Rx] Follow up Appointment(s)/Referral(s): Tyron Coronel MD [STAFF PHYSICIAN] - As Needed Dasha Marsh MD [Primary Care Provider] - 01/02/18 5:00 pm (Sunday) Ingrid Barron MD [STAFF PHYSICIAN] - 01/02/18 10:45 am (Sunday) Patient Instructions/Handouts: How to Use and Care for Your PEG Tube (DC), Pneumonia (DC) Discharge Disposition: HOME SELF-CARE
--- NOTE | 2017-12-28 14:02 | P.PN ---
Subjective Progress Note Date: 12/28/17 Principal diagnosis: Acute bilateral multifocal pneumonia consistent with aspiration. A 52-year-old male patient known to me from previous hospitalization as the patient has had a previous brainstem stroke and has suffered from chronic dysphagia and has been hospitalized in the past for bouts of respiratory tract infection/pneumonia/aspiration. The patient was last seen by our services in July 2017. At that time the patient had a bibasilar opacity and persistent right upper lobe patchy opacity consistent with pneumonia. The patient was still having swallowing difficulties and dysphagia. As mentioned he has had a previous left-sided brainstem CVA leading to right-sided weakness involving the face upper and lower extremity and difficulty with speech and swallow. The patient had a PEG tube inserted for chronic dysphagia and ultimately the PEG tube was removed as the patient was improving and his swallow process is also improved. Subsequently was seen the general surgeon, Dr. Michele harvey for symptoms of dysphagia and the patient had a Davis fundoplication on 2016. His postop esophagram showed no evidence of any leak and the patient had no significant obstruction. The patient had continued to have symptoms of dysphagia and further evaluation by an EGD that was done on 05/11/2017 showed that the patient had some narrowing in the distal esophagus and the patient underwent balloon dilatation of the esophagus. The most recent swallow evaluation was done on 06/04/2017 and the patient had some spasms/stenosis of the proximal esophagus without evidence of any aspiration or penetration. Based on his ongoing symptoms of dysphagia and the risk of aspiration, a PEG tube was reinserted and currently the patient utilizing PEG tube and oral feeding. He takes 50% of his oral intake for the PEG tube. The patient utilizing Jevity and he uses around 5 cans of Jevity on a daily basis and he bolus feeds through his PEG tube. 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 Note that his last bout of pneumonia was in October 2017. At that time the patient presented with productive cough and hypotension and he had a left lower lobe pneumonia for which she was treated and the patient was discharged home on Avelox 400 mg by mouth daily. During this current admission, the patient acute decompensation of his history status. Within the past 24-48 hours he started having increased cough and congestion and he was producing purulent material. He was having also heaviness in his chest. The workup in the emergency included a CT angios the chest that showed multifocal infiltrates bilaterally involving the lower lobes consistent with multifocal pneumonia. There was still persistent diffuse dilatation of the esophagus. The PEG tube was also seen and it was in place. Based on all this, the patient was started on accommodation of Zosyn and Levaquin and vancomycin. His white cell count is at 12.9. His blood pressure with a pH of 7.37 with a pCO2 of 50 and pO2 of 65 his lactic acid level was at 2.9. His blood sugar was at 246. Urinalysis was negative. On 12/26/2017 patient seen in follow-up on selective care unit. He is awake alert, in no acute distress, room air oxygen is 95%, patient has been afebrile, no chills. Still has a frequent loose cough, with production of clear phlegm. Hemodynamically stable, sputum culture from 12/25/2017 shows presumptive staph aureus, blood cultures have been negative thus far. Urine culture has been negative. he remains on empiric antibiotics in the form of Levaquin and vancomycin. Yesterday we consult the speech therapy for evaluation of patient' s swallow. Patient had been working with an outpatient speech pathologist however she states he had missed several appointments. He is currently on tube feedings of Glucerna 1.2 at a rate of 250 ML per hour, and he is receiving 200 mL of water flushes every 4 hours. From pulmonary standpoint he reports being less short of breath and less congested. Lung sounds are positive for coarse rales over left upper and lower lobes. Today's lab work has been reviewed, have a BCC is 12.9, hemoglobin is 11.1, serum sodium is 137, potassium is 4.2, CO2 31, B1 is 13, creatinine 0.50. After speaking with speech pathologist who regularly follows the patient on an outpatient basis, it is clear that the patient is consuming more than the recommended amount of his intake by mouth. Regularly patient was prescribed free water in between meals not with meals. And some limited oral intake of mashed potatoes, of limited amount for pleasure feeds only. Patient admits that he takes and about 50% of his dietary intake by mouth. His last modified barium swallow was back in May. We will request speech pathologist to repeated tomorrow to rule out silent aspiration. On 12/27/2017 patient seen in follow-up on selective care unit. He is scheduled for modified barium swallow today to rule out silent aspiration. Clinically patient remains stable, denies any worsening dyspnea, lung sounds are still positive for coarse respiratory crackles over bilateral bases, more so on the left. No final culture results are available from the sputum culture that showed presumptive staph aureus. Patient is presently on a combination of Zosyn and vancomycin, no new chest x-ray today, no fever, no chills. Patient has a frequent productive cough with clear to yellow sputum. He is requesting to go home today. Today's lab work was reviewed, WBC is down to 6.4, hemoglobin is 11.1, sodium is 140, potassium is 4.2, CO2 33, BUN 16, creatinine 0.81. Clinically patient remains stable, will await the results of the modified barium swallow, and the results of the final sputum culture to make a decision about the discharge antibiotics. The patient is seen again today 12/28/2017 in follow-up in the care unit. He is awake and alert in no acute distress. He denies any shortness of breath, cough or congestion. His sputum was positive for MRSA. He is currently on Bactrim. He followed by IV. He is told to home today. He has no plans otherwise. He is 98% O2 saturation on room air. He is afebrile. Hemodynamically stable. White count 6.5. Hemoglobin 11.4. Creatinine 1.20. Objective - Vital Signs Vital signs: Vital Signs Temp 97.5 F L 12/28/17 08:46 Pulse 88 12/28/17 08:46 Resp 16 12/28/17 08:46 BP 144/86 12/28/17 08:46 Pulse Ox 98 12/28/17 08:46 Intake & Output 12/27/17 12/28/17 12/28/17 18:59 06:59 18:59 Intake Total 1700 1350 Output Total 1200 1050 Balance 500 300 Weight 91.6 kg 91.6 kg Intake: IV 1100 Dextrose 5% in Water 1, 300 000 ml @ 100 mls/hr IV . Q10H [facility] Rx#:[id number] Sodium Chloride 0.9% 1, 800 000 ml @ 100 mls/hr IV . Q10H [facility]KA Rx#:[id number] Tube Feeding 1350 Other 600 Output: Urine 1200 1050 Other: Voiding Method Toilet Toilet Toilet Urinal # Voids 1 2 - Exam No acute distress, oriented 3. HEENT examination is grossly unremarkable. Mucous membranes are moist. No oral lesions. Neck supple. Full range of motion. No adenopathy thyromegaly or neck vein distention. Cardiovascular examination reveals regular rhythm rate. S1-S2 normal. No S3 or S4. No discernible murmur noted. Lungs reveal diminished breath on the lung bases along with bibasilar crackles, more so on the left. Abdomen soft bowel sounds are heard. No masses or tenderness. PEG tube is present for left upper quadrant, with tube feedings infusing continuously. Extremities are intact. No cyanosis clubbing or edema.Examination of the extremities revealed easily palpable radial, femoral and pedal pulses. There was no cyanosis, clubbing or edema. Skin is without rash or lesion.Examination of the skin revealed no evidence of significant rashes, suspicious appearing nevi or other concerning lesions. Neurologic examination is shows some limited right-sided weakness including the right face upper and lower extremity related to a previous brainstem stroke. Otherwise patient is awake and alert and following commands and answering questions appropriately. - Labs CBC & Chem 7: 12/28/17 05:31 12/28/17 05:31 Labs: Abnormal Lab Results - Last 24 Hours (Table) 12/27/17 12/27/17 12/27/17 Range/Units 15:09 15:36 16:21 RBC (4.30-5.90) m/uL Hgb (13.0-17.5) gm/dL Hct (39.0-53.0) % Lymphocytes # (1.0-4.8) k/uL Carbon Dioxide (22-30) mmol/L POC Glucose (mg/dL) 63 L 135 H 134 H (75-99) mg/dL 12/27/17 12/28/17 12/28/17 Range/Units 19:58 00:01 05:31 RBC 3.70 L (4.30-5.90) m/uL Hgb 11.4 L (13.0-17.5) gm/dL Hct 35.1 L (39.0-53.0) % Lymphocytes # 0.8 L (1.0-4.8) k/uL Carbon Dioxide (22-30) mmol/L POC Glucose (mg/dL) 128 H 155 H (75-99) mg/dL 12/28/17 Range/Units 05:31 RBC (4.30-5.90) m/uL Hgb (13.0-17.5) gm/dL Hct (39.0-53.0) % Lymphocytes # (1.0-4.8) k/uL Carbon Dioxide 32 H (22-30) mmol/L POC Glucose (mg/dL) (75-99) mg/dL Microbiology - Last 24 Hours (Table) 12/25/17 08:30 Blood Culture - Preliminary Blood No Growth after 72 hours 12/25/17 08:00 Gram Stain - Final Sputum Sputum Culture - Final Methicillin resist S. aureus 12/25/17 04:50 Blood Culture - Preliminary Blood No Growth after 72 hours Assessment and Plan Assessment: Assessment: 1 acute bilateral multifocal pneumonia consistent with aspiration, covered with broad-spectrum antibiotics. Sputum cultures positive for MRSA. Strongly suspect an aspiration based on his history of CVA/dysphagia 2 history of left brain stem stroke in June 2016 with residual right facial weakness in addition to weakness in the right upper and right lower extremity, impaired swallow 3 dysphagia secondary to above the patient has a PEG tube in place 4 dyspnea secondary to above 5 remote history of left lower extremity DVT and pulmonary embolism completed anticoagulation treatment 6 hypertension 7 hyperlipidemia 8 acute hypoxemic respiratory failure secondary to above 9 acute lactic acidosis secondary to above 10 diabetes mellitus with some underlying hyperglycemia related to underlying pneumonia. Currently on Levemir 20 units in addition to NovoLog sliding scale coverage Plan: The patient was seen and evaluated by Dr. Barron. He is cleared for discharge from the pulmonary standpoint. He has been initiated on Bactrim in the outpatient setting per infectious disease. We'll continue with his usual medications. He'll be seen in our office in 1-2 weeks' time. He is however encouraged to call sooner with any recurrence of symptoms or other questions or concerns. I, the cosigning physician, performed a history & physical examination of the patient. Lungs sounds scattered rhonchi. Maintaining good O2 saturations in the 90s on room air. I discussed the assessment and plan of care with my nurse practitioner, Makayla Sharp. I attest to the above note as dictated by her.
[2017-12-28] MEDS ORDERED: VANCOMYCIN 1,500 MG in SODIUM CHLORIDE 0.9% 250 ML IVPB SCH (21:00)
== END 2017-12-28 11:02 | disposition home or self-care (01) | DRG 871 ==
LOC: EC 04:42 → 6SEL 06:28
PROVIDERS: ADMIT Internal Medicine; ATTEND Internal Medicine
DX: A41.9 Sepsis, unspecified organism (principal); J69.0 Pneumonitis due to inhalation of food and vomit; J96.01 Acute respiratory failure with hypoxia; I69.951 Hemiplegia and hemiparesis following unspecified cerebrovascular disease affecting right dominant side; K94.23 Gastrostomy malfunction; R65.20 Severe sepsis without septic shock; E11.65 Type 2 diabetes mellitus with hyperglycemia; E78.5 Hyperlipidemia, unspecified; E83.42 Hypomagnesemia; F41.9 Anxiety disorder, unspecified; E11.40 Type 2 diabetes mellitus with diabetic neuropathy, unspecified; I11.9 Hypertensive heart disease without heart failure; I49.3 Ventricular premature depolarization; K21.9 Gastro-esophageal reflux disease without esophagitis; K58.9 Irritable bowel syndrome, unspecified; H26.9 Unspecified cataract; M48.061 Spinal stenosis, lumbar region without neurogenic claudication; I69.991 Dysphagia following unspecified cerebrovascular disease; R13.13 Dysphagia, pharyngeal phase; Z79.4 Long term (current) use of insulin; Z79.82 Long term (current) use of aspirin; Z79.899 Other long term (current) drug therapy; Z86.010 Personal history of colon polyps; Z86.14 Personal history of Methicillin resistant Staphylococcus aureus infection; Z86.711 Personal history of pulmonary embolism; Z86.718 Personal history of other venous thrombosis and embolism; Z87.01 Personal history of pneumonia (recurrent); Z91.19 Patient's noncompliance with other medical treatment and regimen; Z88.1 Allergy status to other antibiotic agents; Z91.030 Bee allergy status; Z98.1 Arthrodesis status; Z90.49 Acquired absence of other specified parts of digestive tract; Z80.9 Family history of malignant neoplasm, unspecified; Z82.49 Family history of ischemic heart disease and other diseases of the circulatory system; Y83.3 Surgical operation with formation of external stoma as the cause of abnormal reaction of the patient, or of later complication, without mention of misadventure at the time of the procedure
CPT/HCPCS: 36415; 36600; 71046; 71275; 74230; 80048; 80053; 80202; 81003; 82550; 82553; 82805; 83036; 83605; 83735; 83880; 84484; 85025; 85379; 85610; 85730; 87040; 87070; 87077; 87086; 87186; 87205; 93005; 94640; 94760; 96365; 96366; 96367; 99285

== ENCOUNTER → 2018-02-15 | Outpatient (CLI) | payer OTHER ==
[2018-02-15 13:55] LABS: HCT 39.3 % (39.0-53.0); HGB 12.7 gm/dL (13.0-17.5); MCH 29.8 pg (25.0-35.0); MCHC 32.4 g/dL (31.0-37.0); MCV 91.9 fL (80.0-100.0); Mean Platelet Volume 6.5; Platelet Count 312 k/uL (150-450); RBC 4.28 m/uL (4.30-5.90)
[2018-02-15 14:15] LABS: Anion Gap 8 mmol/L; Blood Urea Nitrogen 11 mg/dL (9-20); Carbon Dioxide 34 mmol/L (22-30); Chloride 96 mmol/L (98-107); Potassium 3.9 mmol/L (3.5-5.1); Sodium 138 mmol/L (137-145)
== END | disposition home or self-care (01) ==
LOC: LABPAT 13:33
PROVIDERS: ATTEND Internal Medicine Cardiovascular Disease
DX: Z01.812 Encounter for preprocedural laboratory examination (principal); R07.9 Chest pain, unspecified
CPT/HCPCS: 36415; 80051; 82565; 84520; 85027

== ENCOUNTER 2018-02-20 09:31 | Day surgery (SDC) | payer OTHER ==
[2018-02-15 11:15] VITALS: BMI 26.9
[~2018-02-20 09:31] MED LIST changes: +ALPRAZolam 0.25 MG TAB PO PRN; +ALPRAZolam 0.5 MG TAB PO PRN; +ASPIRIN 325 MG TAB PO STA; +ATORVASTATIN 80 MG TAB PO STA; -DEXAMETHASONE SOD PHOSPHATE 10 MG/ML 1 ML VIAL IV ONE; -LACTATED RINGERS 1,000 ML IV SCH; -MIDAZOLAM 2 MG/2 ML VIAL IV PRN; +NITROGLYCERIN SL TABS 0.4 MG TAB SUBLINGUAL PRN; -ONDANSETRON 4 MG/2 ML VIAL IVP ONE; -Pre Op ABX Message 1 EACH MISC MISCELLANE ONE; -SCOPOLAMINE 1.5MG/72HR PATCH TRANSDERM ONE; +SODIUM CHLORIDE 0.9% 1,000 ML in EMPTY BAG 1 BAG IV ONE; -fentaNYL (PF) 50 MCG/ML 2 ML AMP IV PRN
[2018-02-20 10:11] VITALS: TEMP 98
[2018-02-20 10:15] LABS: Glucose,Whole Blood 208 mg/dL (75-99)
[2018-02-20] MEDS ORDERED: fentaNYL (PF) 50 MCG/ML 2 ML AMP ONE (11:06)
[2018-02-20] MEDS ORDERED: LIDOCAINE 1% INJ 10MG/ML (20 ML MDV) ONE (11:06)
[2018-02-20] MEDS ORDERED: MIDAZOLAM 2 MG/2 ML VIAL ONE (11:06)
[2018-02-20] MEDS ORDERED: fentaNYL (PF) 50 MCG/ML 2 ML AMP IVP ONE (11:13)
[2018-02-20] MEDS ORDERED: MIDAZOLAM 2 MG/2 ML VIAL IVP ONE (11:13)
[2018-02-20] MEDS ORDERED: LIDOCAINE 1% (PF) 10MG/ML VIAL SQ ONE (11:14)
[2018-02-20] MEDS ORDERED: IOPAMIDOL-370 125ML BTL INJ ONE (11:21)
[2018-02-20] MEDS ORDERED: RX INFO: IV CONTRAST WAS GIVEN 1 EACH MISC MISCELLANE PRN (11:31)
--- NOTE | 2018-02-20 11:38 | P.CARDCATH ---
Date of Procedure: 02/20/18 Preoperative Diagnosis: Recurrent chest pains and multiple Risk factors. Inconclusive stress test Postoperative Diagnosis: Normal coronary arteries Procedure(s) Performed: Left heart catheter without left ventriculography Description of Procedure: HISTORY: This is a 52-year-old gentleman with history of diabetes and dyslipidemia who has been having intermittent chest pains. Stress test showed some questionable findings. Patient is advised to have a cardiac catheterization for definitive diagnosis CONSENT:I have discussed the risks, benefits and alternative therapies for the above-mentioned procedure and for both sedation/analgesia as well as necessary blood product administration, if indicated, as they pertain to this patient. The patient has indicated understanding and acceptance of the risks and procedures discussed. PROCEDURE: Patient was brought to the lab in a fasting state. Patient was given some IV sedation. The right groin is infiltrated with lidocaine and right femoral artery was entered using Seldinger technique. A 6-Gh[place]ian catheter was left in place and selective coronary arteriograph was performed. Patient tolerated the procedure well. Femoral angiogram was performed and Angio -Seal was applied for hemostasis. No immediate complications were noted and patient was transferred to [facility] in a stable condition Conscious Sedation: Versed 1mg Fentanyl 25 g Duration 12minutes HEMODYNAMICS: [] SELECTIVE CORONARY ARTERIOGRAPHY: LEFT MAIN: Normal length and patent THE LEFT ANTERIOR DESCENDING CORONARY ARTERY: This is a good caliber vessel giving rise to good-sized diagonal and septal branches. Free of any occlusive disease THE LEFT CIRCUMFLEX AND IS CORONARY ARTERY: This is a good caliber vessel free of any occlusive disease THE RIGHT CORONARY ARTERY: This a large dominant vessel free of any occlusive disease LEFT VENTRICULOGRAPHY: Not performed FINAL IMPRESSION: Normal coronary arteries. Normal end-diastolic pressure PLAN: Maximum medical therapy and this factor modification PROGNOSIS: Good
[2018-02-20] MEDS ORDERED: SODIUM CHLORIDE 0.9% 1,000 ML IV SCH (11:45)
[2018-02-20] MEDS ORDERED: INSULIN ASPART 100 UNIT/ML 1 ML 10 ML VIAL SQ SCH (12:30)
[2018-02-20 16:03] VITALS: RESP 16
[2018-02-20 16:36] VITALS: BP 122/72; PULSE 76
== END 2018-02-20 16:35 | disposition home or self-care (01) ==
LOC: CATHCVL 09:31
PROVIDERS: ATTEND Internal Medicine Cardiovascular Disease
DX: R07.89 Other chest pain (principal); R94.39 Abnormal result of other cardiovascular function study; E11.9 Type 2 diabetes mellitus without complications; E78.00 Pure hypercholesterolemia, unspecified; I49.9 Cardiac arrhythmia, unspecified; J44.9 Chronic obstructive pulmonary disease, unspecified; Z86.73 Personal history of transient ischemic attack (TIA), and cerebral infarction without residual deficits; Z79.82 Long term (current) use of aspirin; Z79.4 Long term (current) use of insulin; Z79.899 Other long term (current) drug therapy; Z88.1 Allergy status to other antibiotic agents
CPT/HCPCS: 93454; C1760; C1894; C1769; J2250; J3010; J2001; Q9967

== ENCOUNTER 2018-03-26 12:20 | Day surgery (SDC) | payer OTHER ==
[2018-03-26 13:15] VITALS: TEMP 98.4
[2018-03-26] MEDS ORDERED: LACTATED RINGERS 1,000 ML IV ONE (13:34)
[2018-03-26] MEDS ORDERED: LIDOCAINE 1% 20 ML VIAL (10MG/ML) FOR IV START INTRADERMA ONE (13:34)
[2018-03-26] MEDS ORDERED: ALBUTEROL NEBULIZED 2.5 MG/3 ML INHALATION STA (13:59)
[2018-03-26] MEDS ORDERED: LIDOCAINE 2% (PF) 20 MG/ML 10 ML AMP INHALATION STA (14:01)
[2018-03-26] MEDS ORDERED: LIDOCAINE 2% (PF) 20 MG/ML 2 ML AMP INHALATION ONE (14:14)
[2018-03-26] MEDS ORDERED: ALBUTEROL NEB (CONC) 2.5 MG/0.5 ML INHALATION ONE (14:16)
[2018-03-26] MEDS ORDERED: fentaNYL (PF) 50 MCG/ML 2 ML AMP ONE (14:27)
[2018-03-26] MEDS ORDERED: PROPOFOL 10 MG/ML 20 ML VIAL IV ONE (14:27)
[2018-03-26] MEDS ORDERED: MIDAZOLAM 2 MG/2 ML VIAL ONE (14:27)
[2018-03-26] MEDS ORDERED: LIDOCAINE 1% INJ 10MG/ML (20 ML MDV) ONE (14:27)
[2018-03-26] MEDS ORDERED: LIDOCAINE 2% INJ 20 MG/ML INTRATRACH ONE (14:35)
[2018-03-26 14:57] VITALS: RESP 18
[2018-03-26 15:09] VITALS: BP 112/71; PULSE 89
[2018-03-26] MEDS ORDERED: ALBUTEROL NEBULIZED 2.5 MG/3 ML INHALATION SCH (16:00)
--- NOTE | 2018-03-26 16:34 | PCN ---
PROCEDURE NOTE OPERATIVE REPORT: Bronchoscopy, bronchoalveolar lavage of the right lower lobe and left lower lobe. PREOPERATIVE DIAGNOSIS: Bilateral pneumonia. POSTOPERATIVE DIAGNOSIS: Bilateral pneumonia. ANESTHESIA USED: IV conscious sedation. PROCEDURE: Patient was prepared according the bronchoscopy protocol. O2 was applied via nasal cannula, and we monitored his O2 saturation continuously, blood pressure was intermittently monitored and cardiac rhythm was continuously monitored. After adequate IV conscious sedation, a few mL of lidocaine were instilled into the right naris, and the bronchoscope was advanced through the right naris down to the area of the vocal cords, which were patent. Then, lidocaine was applied over the vocal cords, and the bronchoscope was advanced further down. Thorough examination was done of the trachea, right upper lobe, right middle lobe, right lower lobe, and the left upper lobe lingula and left lower lobe. There was evidence of significant purulent secretions in the different lobes, but more so in the right middle lobe, right lower lobe and left lower lobe. Bronchoalveolar lavage was done of the right upper lobe, right lower lobe and left lower lobe. The other areas were suctioned and purulent secretions were cleared out of the airways. Procedure was well tolerated, no evidence of any immediate complications. The fluid was sent for different diagnostic studies, mostly cultures. MMODL / IJN: [id number] /
[2018-03-26 16:57] LABS: Appearance,BF Cloudy; Color,BF Yellow; Nucleated Cells, Body Fluid 3600 /uL; RBC, Body Fluid 480 /uL
[2018-03-26 17:11] LABS: Mononuclear WBC,Body Fluid 16 %; Polynuclear WBC,Body Fluid 84 %; Total Cells Counted,Body Fluid 100
== END 2018-03-26 15:44 | disposition home or self-care (01) ==
LOC: ORWHC2ENDO 12:20
PROVIDERS: ATTEND Internal Medicine
DX: J18.9 Pneumonia, unspecified organism (principal); I10 Essential (primary) hypertension; E78.00 Pure hypercholesterolemia, unspecified; E11.40 Type 2 diabetes mellitus with diabetic neuropathy, unspecified; Z86.718 Personal history of other venous thrombosis and embolism; Z86.711 Personal history of pulmonary embolism; Z86.73 Personal history of transient ischemic attack (TIA), and cerebral infarction without residual deficits; Z86.14 Personal history of Methicillin resistant Staphylococcus aureus infection; H46.9 Unspecified optic neuritis; Z79.82 Long term (current) use of aspirin; Z79.4 Long term (current) use of insulin; Z79.899 Other long term (current) drug therapy; Z88.1 Allergy status to other antibiotic agents
CPT/HCPCS: 94640; 89050; 87070; 87205; 87116; 87102; 87077; 87186; 87206; 31624; J2001 ×3; J2250; J3010; J2704; 31645

== ENCOUNTER 2018-03-28 07:04 | Inpatient (IN) | payer OTHER ==
[2018-03-28] MEDS ORDERED: methylPREDNISolone SOD SUCCI 125 MG/2 ML VIAL IV STA (07:27)
[2018-03-28] MEDS ORDERED: IPRATROPIUM-ALBUTEROL 3 ML NEB INHALATION STA ×2 (07:27→10:19)
--- NOTE | 2018-03-28 07:30 | ED ---
URI HPI - General Chief Complaint: Upper Respiratory Infection Stated Complaint: SOB,Cough Time Seen by Provider: 03/28/18 07:20 Source: patient, RN notes reviewed Mode of arrival: ambulatory Limitations: no limitations - History of Present Illness Initial Comments: This is a 52-year-old male with history of COPD and multiple other medical problems who states she's had the onset of feeling well over last day or 2 he states he had a bronchoscopy done very recently and was started on antibiotics. Complains of shortness of breath cough generally not feeling well no overt fevers chills or sweats reported at this time no chest pain. MD Complaint: cough, other - Related Data Home Medications Medication Instructions Recorded Confirmed Metoprolol Tartrate [Lopressor] 25 mg PO BID 10/13/16 03/28/18 Simvastatin [Zocor] 40 mg PO HS 10/13/16 03/28/18 Omeprazole 40 mg PO BID 06/13/17 03/28/18 Insulin Aspart [NovoLOG] See Protocol SQ AC-TID PRN 09/19/17 03/28/18 Ranitidine HCl [Zantac] 300 mg PO DAILY 10/25/17 03/28/18 EPINEPHrine (Auto Inject) [Epipen] 0.3 mg IM ONCE PRN 12/25/17 03/28/18 Loratadine [Claritin] 10 mg PO DAILY 12/25/17 03/28/18 Zolpidem [Ambien] 5 mg PO HS 03/26/18 03/28/18 Amoxic-Pot Clav 875-125Mg 1 tab PO Q12HR 03/28/18 03/28/18 [Augmentin 875-125] Insulin Glargine,Hum.rec.anlog 25 unit SQ HS 03/28/18 03/28/18 [Basaglar Kwikpen U-100] Pioglitazone [Actos] 30 mg PO DAILY 03/28/18 03/28/18 Allergies Allergy/AdvReac Type Severity Reaction Status Date / Time vancomycin Allergy kidneys Verified 03/28/18 08:19 shut down venom-honey bee Allergy Anaphylaxis Verified 03/28/18 08:19 [bee venom (honey bee)] metformin AdvReac Diarrhea Verified 03/28/18 08:19 Review of Systems ROS Statement: Those systems with pertinent positive or pertinent negative responses have been documented in the HPI. ROS Other: All systems not noted in ROS Statement are negative. Past Medical History Past Medical History: Chest Pain / Angina, CVA/TIA, Diabetes Mellitus, Deep Vein Thrombosis (DVT), GERD/Reflux, Hyperlipidemia, Hypertension, Musculoskeletal Disorder, Pneumonia, Pulmonary Embolus (PE), Syncope Additional Past Medical History / Comment(s): CVA (06/2016), RIGHT SIDED WEAKNESS, HAS PEG TUBE WITH GLUCERNA 2.5 -TAKES 5 FCANS DAILY., STATES ABLE TO EAT SOME FOODS SUCH MASHED POTATOES., HX OF ASPIRATION PNEUMONIA, LUMBAR STENOSIS. , HX IBS. COLON POLYPS, CATARACTS, RIGHT SIDE OF BODY IS TEMPERATURE INTOLERANT. , NEUROPATHY OF HANDS & FEET, HAND TREMORS., BACK PAIN. , COUGHS WHEN HE LIES FLAT., SEE CARDIOLOGY H & P. History of Any Multi-Drug Resistant Organisms: MRSA Date of last positivie culture/infection: 12/25/17 MDRO Source:: SPUTUM Past Surgical History: Appendectomy, Cholecystectomy, Orthopedic Surgery Additional Past Surgical History / Comment(s): EXPLORATORY LAPAROTOMY, FUSION L4 -L5, COLONOSCOPY, PEG tube. , REPAIR HIATAL HERNIA, CARPAL TUNNEL SURG. Past Anesthesia/Blood Transfusion Reactions: No Reported Reaction Additional Past Anesthesia/Blood Transfusion Reaction / Comment(s): COUGHS WHEN HE LIES FLAT Past Psychological History: Anxiety, Depression Smoking Status: Never smoker Past Alcohol Use History: None Reported Past Drug Use History: None Reported - Past Family History Father History Unknown: Yes Family Medical History: No Reported History Mother Family Medical History: Cancer, Pulmonary Embolus General Exam - General Exam Comments Initial Comments: This is a well-developed well-nourished awake alert oriented times 3 male Limitations: no limitations General appearance: alert, in no apparent distress Head exam: Present: atraumatic, normocephalic, normal inspection Eye exam: Present: normal appearance, PERRL, EOMI. Absent: scleral icterus, conjunctival injection, periorbital swelling ENT exam: Present: normal exam, mucous membranes moist Neck exam: Present: normal inspection. Absent: tenderness, meningismus, lymphadenopathy Respiratory exam: Present: wheezes, decreased breath sounds. Absent: respiratory distress, rales, rhonchi, stridor Cardiovascular Exam: Present: regular rate, normal rhythm, normal heart sounds. Absent: systolic murmur, diastolic murmur, rubs, gallop, clicks GI/Abdominal exam: Present: soft, normal bowel sounds. Absent: distended, tenderness, guarding, rebound, rigid Extremities exam: Present: normal inspection, full ROM, normal capillary refill. Absent: tenderness, pedal edema, joint swelling, calf tenderness Back exam: Present: normal inspection Neurological exam: Present: alert, oriented X3, CN II-XII intact Psychiatric exam: Present: normal affect, normal mood Skin exam: Present: warm, dry, intact, normal color. Absent: rash Course Vital Signs 03/28/18 03/28/18 03/28/18 07:08 07:49 08:00 Temperature 98.2 F Pulse Rate 104 H 93 93 Respiratory 20 Rate Blood Pressure 95/59 O2 Sat by Pulse 80 L Oximetry 03/28/18 03/28/18 03/28/18 08:02 10:21 10:36 Temperature Pulse Rate 92 89 87 Respiratory 18 18 Rate Blood Pressure 122/72 106/60 O2 Sat by Pulse 94 L 94 L Oximetry 03/28/18 10:46 Temperature Pulse Rate 86 Respiratory Rate Blood Pressure O2 Sat by Pulse Oximetry - Reevaluation(s) Reevaluation #1: 03/28/18 10:21 Repeat evaluation after the patient did ably reveals diminished breath sounds he has had increased cough and diminished breath sounds are marked on the left side Reevaluation #2: 03/28/18 11:58 He continues to have recurrent dyspnea he will be admitted Medical Decision Making - Medical Decision Making The patient continues had dyspnea and in his breath sounds on the left I did discuss case with him and with Dr. Hoffmann, the patient will be admitted with pulmonary consultation - Lab Data Result diagrams: 03/28/18 07:34 03/28/18 07:34 Lab Results 03/28/18 03/28/18 03/28/18 Range/Units 07:34 07:34 07:34 WBC 8.5 (3.8-10.6) k/uL RBC 4.46 (4.30-5.90) m/uL Hgb 13.6 (13.0-17.5) gm/dL Hct 43.0 (39.0-53.0) % MCV 96.3 (80.0-100.0) fL MCH 30.5 (25.0-35.0) pg MCHC 31.7 (31.0-37.0) g/dL RDW 13.8 (11.5-15.5) % Plt Count 288 (150-450) k/uL Neutrophils % 84 % Lymphocytes % 8 % Monocytes % 5 % Eosinophils % 1 % Basophils % 0 % Neutrophils # 7.1 (1.3-7.7) k/uL Lymphocytes # 0.7 L (1.0-4.8) k/uL Monocytes # 0.5 (0-1.0) k/uL Eosinophils # 0.1 (0-0.7) k/uL Basophils # 0.0 (0-0.2) k/uL Hypochromasia Slight PT (9.0-12.0) sec INR (<1.2) APTT (22.0-30.0) sec Sodium 140 (137-145) mmol/L Potassium 4.8 (3.5-5.1) mmol/L Chloride 101 (98-107) mmol/L Carbon Dioxide 31 H (22-30) mmol/L Anion Gap 8 mmol/L BUN 10 (9-20) mg/dL Creatinine 0.53 L (0.66-1.25) mg/dL Est GFR (CKD-EPI)AfAm >90 (>60 ml/min/1.73 sqM) Est GFR (CKD-EPI)NonAf >90 (>60 ml/min/1.73 sqM) Glucose 269 H (74-99) mg/dL Calcium 8.5 (8.4-10.2) mg/dL Magnesium 1.4 L (1.6-2.3) mg/dL Total Bilirubin 0.5 (0.2-1.3) mg/dL AST 23 (17-59) U/L ALT 21 (21-72) U/L Alkaline Phosphatase 71 (38-126) U/L Total Creatine Kinase 27 L (55-170) U/L CK-MB (CK-2) 0.8 (0.0-2.4) ng/mL CK-MB (CK-2) Rel Index 3.0 Troponin I <0.012 (0.000-0.034) ng/mL NT-Pro-B Natriuret Pep pg/mL Total Protein 6.3 (6.3-8.2) g/dL Albumin 3.1 L (3.5-5.0) g/dL 09/20/18 09/20/18 Range/Units 07:34 07:34 WBC (3.8-10.6) k/uL RBC (4.30-5.90) m/uL Hgb (13.0-17.5) gm/dL Hct (39.0-53.0) % MCV (80.0-100.0) fL MCH (25.0-35.0) pg MCHC (31.0-37.0) g/dL RDW (11.5-15.5) % Plt Count (150-450) k/uL Neutrophils % % Lymphocytes % % Monocytes % % Eosinophils % % Basophils % % Neutrophils # (1.3-7.7) k/uL Lymphocytes # (1.0-4.8) k/uL Monocytes # (0-1.0) k/uL Eosinophils # (0-0.7) k/uL Basophils # (0-0.2) k/uL Hypochromasia PT 9.8 (9.0-12.0) sec INR 1.0 (<1.2) APTT 25.1 (22.0-30.0) sec Sodium (137-145) mmol/L Potassium (3.5-5.1) mmol/L Chloride (98-107) mmol/L Carbon Dioxide (22-30) mmol/L Anion Gap mmol/L BUN (9-20) mg/dL Creatinine (0.66-1.25) mg/dL Est GFR (CKD-EPI)AfAm (>60 ml/min/1.73 sqM) Est GFR (CKD-EPI)NonAf (>60 ml/min/1.73 sqM) Glucose (74-99) mg/dL Calcium (8.4-10.2) mg/dL Magnesium (1.6-2.3) mg/dL Total Bilirubin (0.2-1.3) mg/dL AST (17-59) U/L ALT (21-72) U/L Alkaline Phosphatase (38-126) U/L Total Creatine Kinase (55-170) U/L CK-MB (CK-2) (0.0-2.4) ng/mL CK-MB (CK-2) Rel Index Troponin I (0.000-0.034) ng/mL NT-Pro-B Natriuret Pep 243 pg/mL Total Protein (6.3-8.2) g/dL Albumin (3.5-5.0) g/dL - EKG Data -: EKG Interpreted by Me EKG shows normal: sinus rhythm, axis, intervals, QRS complexes, ST-T waves ( Over sinus rhythm a 93. Interval 150 QRS duration 80 QT since QTC 380/[address]-T wave changes) Rate: normal - Radiology Data Radiology results: report reviewed (I did review the imaging and report no definite acute findings.), image reviewed Critical Care Time Critical Care Time: Yes Critical Care Time: 32 minutes of critical care time which includes initial history physical labs x- rays multiple reevaluation of the patient responsive therapy discuss with the patient regarding findings discussion with the admitting physician admission orders and documentation of the above Disposition Clinical Impression: COPD with exacerbation, Hypoxemia, Hypomagnesemia Disposition: ADMITTED IP TO THIS [facility] Condition: Stable Referrals: Dasha Marsh MD [Primary Care Provider] - 1-2 days
[2018-03-28 07:55] LABS: Basophils % (A) 0 %; Eosinophils # (A) 0.1 k/uL (0-0.7); Eosinophils % (A) 1 %; HGB 13.6 gm/dL (13.0-17.5); Hypochromasia Slight; Lymphocytes # (A) 0.7 k/uL (1.0-4.8); Lymphocytes % (A) 8 %; MCH 30.5 pg (25.0-35.0); MCHC 31.7 g/dL (31.0-37.0); MCV 96.3 fL (80.0-100.0); Mean Platelet Volume 6.7; Monocytes # (A) 0.5 k/uL (0-1.0); Monocytes % (A) 5 %; Neutrophils # (A) 7.1 k/uL (1.3-7.7); Neutrophils % (A) 84 %; Platelet Count 288 k/uL (150-450); RBC 4.46 m/uL (4.30-5.90); RDW 13.8 % (11.5-15.5); WBC 8.5 k/uL (3.8-10.6)
[2018-03-28 08:06] LABS: ALT 21 U/L (21-72); AST 23 U/L (17-59); Albumin 3.1 g/dL (3.5-5.0); Alkaline Phosphatase 71 U/L (38-126); Anion Gap 8 mmol/L; Blood Urea Nitrogen 10 mg/dL (9-20); Calcium 8.5 mg/dL (8.4-10.2); Carbon Dioxide 31 mmol/L (22-30); Chloride 101 mmol/L (98-107); Glucose 269 mg/dL (74-99); Magnesium 1.4 mg/dL (1.6-2.3); Sodium 140 mmol/L (137-145); Total Bilirubin 0.5 mg/dL (0.2-1.3); Total Protein 6.3 g/dL (6.3-8.2)
[2018-03-28 08:08] LABS: Partial Thromboplastin Time 25.1 sec (22.0-30.0); Prothrombin Time 9.8 sec (9.0-12.0)
[2018-03-28 08:17] LABS: Potassium 4.8 mmol/L (3.5-5.1)
[2018-03-28 08:33] LABS: Creatine Kinase 27 U/L (55-170)
[2018-03-28] MEDS ORDERED: MAGNESIUM SULFATE-D5W PMX 1 GM in DEXTROSE/WATER 1 100ML.BAG IVPB ONE (08:36)
--- NOTE | 2018-03-28 08:40 | XR ---
EXAMINATION TYPE: XR chest 2V DATE OF EXAM: 03/28/2018 COMPARISON: 12/25/2017 HISTORY: Shortness of breath TECHNIQUE: Frontal and lateral views of the chest are obtained. FINDINGS: Scattered senescent parenchymal changes noted. Hyperinflation compatible with COPD. No evidence for infiltrate. No evidence for atelectasis. Heart size is stable. Mediastinal structures are stable and grossly unremarkable. No evidence for hilar prominence. Degenerative changes dorsal spine. IMPRESSION: 1. No evidence for acute pulmonary disease.
[2018-03-28 08:47] LABS: Creatine Kinase MB 0.8 ng/mL (0.0-2.4); Troponin I <0.012 ng/mL (0.000-0.034)
[2018-03-28] MEDS ORDERED: EPINEPHrine 1 MG/ML 1 ML AMP IM PRN (12:03)
[2018-03-28] MEDS: SODIUM CHLORIDE 0.9% 1,000 ML IV SCH (12:22)
[2018-03-28] MEDS: INSULIN ASPART 100 UNIT/ML 1 ML 10 ML VIAL SQ SCH ×3 (13:28→22:02)
[2018-03-28 13:36] LABS: Glucose,Whole Blood 267 mg/dL (75-99)
[2018-03-28] MEDS ORDERED: DOCUSATE 100 MG CAP PO PRN (15:59)
[2018-03-28] MEDS ORDERED: NALOXONE 0.4 MG/ML 1 ML VIAL IV PRN (15:59)
[2018-03-28] MEDS ORDERED: HYDROcodone/APAP 5-325MG 1 EACH TAB PO PRN (15:59)
[2018-03-28] MEDS ORDERED: ACETAMINOPHEN TAB 325 MG TAB PO PRN (15:59)
[2018-03-28] MEDS ORDERED: ONDANSETRON 4 MG/2 ML VIAL IVP PRN (15:59)
[2018-03-28] MEDS: IPRATROPIUM-ALBUTEROL 3 ML NEB INHALATION SCH ×2 (16:00→20:10)
[2018-03-28] MEDS ORDERED: VANCOMYCIN IV PER PHARMACY 1 EACH MISC MISCELLANE PRN (16:00)
[2018-03-28] MEDS ORDERED: ALBUTEROL NEBULIZED 2.5 MG/3 ML INHALATION PRN (16:01)
--- NOTE | 2018-03-28 16:14 | P.HPIM ---
History of Present Illness H&P Date: 03/28/18 Chief Complaint: shortness of breath Patient is a 52-year-old gentleman history of recurrent pneumonia due to aspiration from pharyngeal dysphagia associated with a stroke back in 2016, diabetes mellitus type 2, and hypertension who presented to the ER with shortness of breath. On arrival to the ER he was hypoxic with a room air sat is 80. He is also found to be tachycardic with a heart rate of 104. Chest x- ray showed no acute process. He received multiple breathing treatments and a dose of Solu-Medrol still significantly dyspneic. There is concern for failed outpatient treatment of pneumonia and he was admitted. Patient had seen Dr. Fitzpatrick and had a bronch performed on 03/26 one day prior to admission. He was found to have pneumonia with purulent secretions. He was placed on Augmentin. Microbiology was reviewed and at time of admission was growing gram-positive cocci. Patient seen and examined at bedside. He reports shortness of breath that has been increasing over the last month. It is worse with exertion and better with rest. It is associated with a cough productive of clear to TMs colored sputum. He does have a history of dysphasia. He continues to see outpatient speech therapy. He reports that he has been on a pured diet but has recently aches. He continues to use his Jevity tube feeds as well. He has lost approximately 120 pounds since 2016. He denies any fevers, chills, nausea, vomiting, constipation, or diarrhea. He has chronic right-sided arm and hand tingling secondary to his stroke but this is not new. He denies any unusual weakness. He has a low appetite at baseline but has not had any changes. He started taking Augmentin yesterday and instructed by Dr. Soto are after his bronch. He has been having some intermittent chest pain but nothing in the last few days. This is what initially started the workup for his aspiration and pneumonia. Review of Systems Pertinent positives and negatives as discussed in HPI, a complete review of systems was performed and all other systems are negative. Past Medical History Past Medical History: Chest Pain / Angina, CVA/TIA, Diabetes Mellitus, Deep Vein Thrombosis (DVT), GERD/Reflux, Hyperlipidemia, Hypertension, Musculoskeletal Disorder, Pneumonia, Pulmonary Embolus (PE), Syncope Additional Past Medical History / Comment(s): CVA (06/2016), RIGHT SIDED WEAKNESS, HAS PEG TUBE WITH GLUCERNA 2.5 -TAKES 5 CANS DAILY. Purred foods. HX OF ASPIRATION PNEUMONIA, LUMBAR STENOSIS. , HX IBS. COLON POLYPS, CATARACTS, RIGHT SIDE OF BODY IS TEMPERATURE INTOLERANT. , NEUROPATHY OF HANDS & FEET, HAND TREMORS., BACK PAIN. History of Any Multi-Drug Resistant Organisms: MRSA Date of last positivie culture/infection: 12/25/17 MDRO Source:: SPUTUM Past Surgical History: Appendectomy, Cholecystectomy, Heart Catheterization, Orthopedic Surgery Additional Past Surgical History / Comment(s): EXPLORATORY LAPAROTOMY, FUSION L4 -L5, COLONOSCOPY, PEG tube. , REPAIR HIATAL HERNIA, CARPAL TUNNEL SURG.bronchoscopy Past Anesthesia/Blood Transfusion Reactions: No Reported Reaction Additional Past Anesthesia/Blood Transfusion Reaction / Comment(s): COUGHS WHEN HE LIES FLAT Smoking Status: Never smoker Past Alcohol Use History: None Reported Past Drug Use History: None Reported Additional History: Lives alone, no assistive devices, continues to do PEG tube feedings. - Past Family History Father History Unknown: Yes Family Medical History: No Reported History Mother Family Medical History: Cancer, Pulmonary Embolus Medications and Allergies Home Medications Medication Instructions Recorded Confirmed Type Metoprolol Tartrate [Lopressor] 25 mg PO BID 10/13/16 03/28/18 History Simvastatin [Zocor] 40 mg PO HS 10/13/16 03/28/18 History Omeprazole 40 mg PO BID 06/13/17 03/28/18 History Insulin Aspart [NovoLOG] See Protocol SQ AC-TID PRN 09/19/17 03/28/18 History Ranitidine HCl [Zantac] 300 mg PO DAILY 10/25/17 03/28/18 History EPINEPHrine (Auto Inject) [Epipen] 0.3 mg IM ONCE PRN 12/25/17 03/28/18 History Loratadine [Claritin] 10 mg PO DAILY 12/25/17 03/28/18 History Zolpidem [Ambien] 5 mg PO HS 03/26/18 03/28/18 History Amoxic-Pot Clav 875-125Mg 1 tab PO Q12HR 03/28/18 03/28/18 History [Augmentin 875-125] Insulin Glargine,Hum.rec.anlog 25 unit SQ HS 03/28/18 03/28/18 History [Basaglar Kwmoizpen U-100] Pioglitazone [Actos] 30 mg PO DAILY 03/28/18 03/28/18 History Allergies Allergy/AdvReac Type Severity Reaction Status Date / Time vancomycin Allergy kidneys Verified 03/28/18 08:19 shut down venom-honey bee Allergy Anaphylaxis Verified 03/28/18 08:19 [bee venom (honey bee)] metformin AdvReac Diarrhea Verified 03/28/18 08:19 Physical Exam Osteopathic Statement: *. No significant issues noted on an osteopathic structural exam other than those noted in the History and Physical/Consult. Vitals: Vital Signs Temp Pulse Resp BP Pulse Ox 03/28/18 16:02 90 03/28/18 15:07 98.2 F 80 18 95/51 94 L 03/28/18 13:30 90 18 113/66 92 L 03/28/18 12:25 98.0 F 90 20 106/65 91 L 03/28/18 10:46 86 03/28/18 10:36 87 03/28/18 10:21 89 18 106/60 94 L 03/28/18 08:02 92 18 122/72 94 L 03/28/18 08:00 93 03/28/18 07:49 93 03/28/18 07:08 98.2 F 104 H 20 95/59 80 L Intake and Output 03/28/18 03/28/18 03/28/18 06:59 14:59 22:59 Other: Weight 86.183 kg General: non toxic, no distress, appears at stated age, normal weight Derm: no unusual rashes/lesions no unusual ecchymoses, warm, dry, PEG tube in place with what appears to be tried tube feedings around it Head: atraumatic, normocephalic, symmetric Eyes: EOMI, no lid lag, anicteric sclera, pupils equal round reactive to light ENT: Nose and ears atraumatic, no thrush, no pharyngeal erythema Neck: No thyromegaly, no cervical lymphadenopathy, trachea midline, supple Mouth: no lip lesion, mucus membranes moist Cardiovascular: S1S2 reg, no murmur, positive posterior tibial pulse bilateral, no edema, capillary refill less than 2 seconds Lungs: Coarse breath sounds bilateral bases, no rhonchi, no rales , no accessory muscle use Abdominal: soft, nontender to palpation, no guarding, no appreciable organomegaly, normal bowel sounds Ext: no gross muscle atrophy, muscle strength 5 out of 5 in all 4 extremities grossly, no contractures, Neuro: Pupils equal round reactive to light, extraocular motion intact, light touch intact bilateral face, tongue deviation to the right, lack of upper palate elevation on the right, light touch decreased in right upper extremity but intact in all other extremities, Psych: Alert, oriented, appropriate affect Results CBC & Chem 7: 03/28/18 07:34 03/28/18 07:34 Labs: Abnormal Lab Results - Last 24 Hours (Table) 03/28/18 03/28/18 03/28/18 Range/Units 07:34 07:34 07:34 Lymphocytes # 0.7 L (1.0-4.8) k/uL Carbon Dioxide 31 H (22-30) mmol/L Creatinine 0.53 L (0.66-1.25) mg/dL Glucose 269 H (74-99) mg/dL POC Glucose (mg/dL) (75-99) mg/dL Magnesium 1.4 L (1.6-2.3) mg/dL Total Creatine Kinase 27 L (55-170) U/L Albumin 3.1 L (3.5-5.0) g/dL 03/28/18 Range/Units 13:21 Lymphocytes # (1.0-4.8) k/uL Carbon Dioxide (22-30) mmol/L Creatinine (0.66-1.25) mg/dL Glucose (74-99) mg/dL POC Glucose (mg/dL) 267 H (75-99) mg/dL Magnesium (1.6-2.3) mg/dL Total Creatine Kinase (55-170) U/L Albumin (3.5-5.0) g/dL Chest x-ray: report reviewed, image reviewed Thrombosis Risk Factor Assmnt - DVT/VTE Prophylaxis DVT/VTE Prophylaxis: Pharmacologic Prophylaxis ordered Assessment and Plan Assessment: Purulent Tracheobronchitis, possible MRSA -Microbiology from bronchitis 03/26 currently pending but preliminary Gram stain shows multiple gram-positive cocci -Vancomycin and Rocephin -Consult pulmonary -Pulmonary hygiene -Repeat chest x-ray in a.m. History of dysphasia -Continue outpatient speech therapy -Consult dietitian for tube feeding recommendations -Continue with pured diet Acute hypoxic respiratory failure -Likely secondary to tracheobronchitis -Wean O2 as able -Pulmonary hygiene Hypomagnesemia -Recheck and replace in a.m. Diabetes mellitus type 2 -Hold Actos -Check A1c -Continue with long-acting insulin -Sliding-scale insulin Hypertension, controlled -Not chronically on antihypertensive -Follow blood pressure DVT prophylaxis: Lovenox Discussed with: Patient, nursing, ED physician Anticipated discharge: 48-[address]: Home A total of 65, minutes was spent on the care of this complex patient more than 50% of the time was spent in counseling and care coordination.
[2018-03-28] MEDS ORDERED: cefTRIAXone 1,000 MG VIAL (IM USE) IM SCH (16:15)
--- NOTE | 2018-03-28 16:24 | P.CNPUL ---
History of Present Illness Consult date: 03/28/18 Requesting physician: Chaparro Fabian Reason for consult: cough, hypoxemia Chief complaint: Increased coughing, shortness of breath, hypoxemia History of present illness: This is a 52-year-old white male patient of Dr. Marsh, who presented to the emergency department on 03/28/2018 for evaluation of increased coughing, congestion, shortness of breath and overall not feeling well for last 2 days. He also reports on and off chest discomfort in left chest without any specific exacerbating factors, which is usually short lasting, about a minute, with no other accompanying symptoms. Patient is well-known to our service for his history of recurrent respiratory tract infection/pneumonia/aspiration with multiple hospitalizations. Patient had a brainstem stroke 2 years ago, he suffers from chronic dysphagia with multiple episodes of aspiration pneumonia. Patient had a PEG tube put in, and currently he receives 4-5 as of Jevity tube feeding on the daily basis via bolus feeds. He has been working with outpatient speech therapy, his swallowing has improved and he is able to eat a modified diet by mouth in addition to tube feedings. He is able to eat mashed potatoes and pured material, drink water, and he reports that his speech therapist is happy with his progress, and he will soon be upgraded to pancakes and soft diet. He was last hospitalized in December 2017 for multifocal pneumonia consistent with aspiration, and sputum cultures were positive for MRSA. Patient had a repeat video swallowing evaluation during last hospitalization which showed no aspiration, but did show significant pooling within the hypopharynx during swallowing. Patient was treated with Zosyn and vancomycin, improved, was discharged home on Bactrim. Patient was seen in follow-up by Dr. Barrno on all 03/25/2018 and patient was complaining of cough and congestion, and on and off chest pain. Cardiac evaluation including a coronary angiogram in February 2018 was within normal limits. Chest x-ray showed bilateral lower lobe pulmonary infiltrates slightly worse compared to his previous chest x-ray findings. Patient underwent an outpatient bronchoscopy with BAL on 03/26/[address] Fitzpatrick, and bronchial wash cultures are still pending at this time. He was placed on empiric antibiotics in the form of Augmentin and was sent home. However his worsening chest congestion and cough, patient presented to the emergency department for further evaluation and treatment. Chest x-ray showed no acute pulmonary disease. EKG showed normal sinus rhythm. Labs were reviewed , showed WBC of 8.5, hemoglobin at 13.6, sodium is 140, potassium is 4.8, CO2 of 31, BUN of 10, creatinine is 0.53. Troponin is negative proBNP is 243, within normal limits. Patient is afebrile, hemodynamically stable, denies any fever or chills, currently on 3 L per nasal cannula his pulse ox is 91-92%. Lung sounds are positive for crackles at the left posterior base. Patient remains on Augmentin, IV steroids, and he will be admitted for further management Review of Systems All systems: negative Constitutional: Denies chills, Denies fever Eyes: denies blurred vision, denies pain Ears, nose, mouth and throat: Denies headache, Denies sore throat Cardiovascular: Denies chest pain, Denies shortness of breath Respiratory: Reports congestion, Reports cough with sputum, Reports dyspnea, Reports respiratory infections, Denies cough Gastrointestinal: Denies abdominal pain, Denies diarrhea, Denies nausea, Denies vomiting Musculoskeletal: Denies myalgias Integumentary: Denies pruritus, Denies rash Neurological: Denies numbness, Denies weakness Psychiatric: Denies anxiety, Denies depression Endocrine: Denies fatigue, Denies weight change Past Medical History Past Medical History: Chest Pain / Angina, CVA/TIA, Diabetes Mellitus, Deep Vein Thrombosis (DVT), GERD/Reflux, Hyperlipidemia, Hypertension, Musculoskeletal Disorder, Pneumonia, Pulmonary Embolus (PE), Syncope Additional Past Medical History / Comment(s): CVA (06/2016), RIGHT SIDED WEAKNESS, HAS PEG TUBE WITH GLUCERNA 2.5 -TAKES 5 FCANS DAILY., STATES ABLE TO EAT SOME FOODS SUCH MASHED POTATOES., HX OF ASPIRATION PNEUMONIA, LUMBAR STENOSIS. , HX IBS. COLON POLYPS, CATARACTS, RIGHT SIDE OF BODY IS TEMPERATURE INTOLERANT. , NEUROPATHY OF HANDS & FEET, HAND TREMORS., BACK PAIN. , COUGHS WHEN HE LIES FLAT., SEE CARDIOLOGY H & P. History of Any Multi-Drug Resistant Organisms: MRSA Date of last positivie culture/infection: 12/25/17 MDRO Source:: SPUTUM Past Surgical History: Appendectomy, Cholecystectomy, Heart Catheterization, Orthopedic Surgery Additional Past Surgical History / Comment(s): EXPLORATORY LAPAROTOMY, FUSION L4 -L5, COLONOSCOPY, PEG tube. , REPAIR HIATAL HERNIA, CARPAL TUNNEL SURG.bronchoscopy Past Anesthesia/Blood Transfusion Reactions: No Reported Reaction Additional Past Anesthesia/Blood Transfusion Reaction / Comment(s): COUGHS WHEN HE LIES FLAT Smoking Status: Never smoker - Past Family History Father History Unknown: Yes Family Medical History: No Reported History Mother Family Medical History: Cancer, Pulmonary Embolus Medications and Allergies Home Medications Medication Instructions Recorded Confirmed Type Metoprolol Tartrate [Lopressor] 25 mg PO BID 10/13/16 03/28/18 History Simvastatin [Zocor] 40 mg PO HS 10/13/16 03/28/18 History Omeprazole 40 mg PO BID 06/13/17 03/28/18 History Insulin Aspart [NovoLOG] See Protocol SQ AC-TID PRN 09/19/17 03/28/18 History Ranitidine HCl [Zantac] 300 mg PO DAILY 10/25/17 03/28/18 History EPINEPHrine (Auto Inject) [Epipen] 0.3 mg IM ONCE PRN 12/25/17 03/28/18 History Loratadine [Claritin] 10 mg PO DAILY 12/25/17 03/28/18 History Zolpidem [Ambien] 5 mg PO HS 03/26/18 03/28/18 History Amoxic-Pot Clav 875-125Mg 1 tab PO Q12HR 03/28/18 03/28/18 History [Augmentin 875-125] Insulin Glargine,Hum.rec.anlog 25 unit SQ HS 03/28/18 03/28/18 History [Basaglar Kwikpen U-100] Pioglitazone [Actos] 30 mg PO DAILY 03/28/18 03/28/18 History Allergies Allergy/AdvReac Type Severity Reaction Status Date / Time vancomycin Allergy kidneys Verified 03/28/18 08:19 shut down venom-honey bee Allergy Anaphylaxis Verified 03/28/18 08:19 [bee venom (honey bee)] metformin AdvReac Diarrhea Verified 03/28/18 08:19 Physical Exam Vitals: Vital Signs Temp Pulse Resp BP Pulse Ox 03/28/18 15:07 98.2 F 80 18 95/51 94 L 03/28/18 13:30 90 18 113/66 92 L 03/28/18 12:25 98.0 F 90 20 106/65 91 L 09/20/18 10:46 86 03/28/18 10:36 87 03/28/18 10:21 89 18 106/60 94 L 03/28/18 08:02 92 18 122/72 94 L 03/28/18 08:00 93 03/28/18 07:49 93 03/28/18 07:08 98.2 F 104 H 20 95/59 80 L Intake and Output 03/28/18 03/28/18 03/28/18 06:59 14:59 22:59 Other: Weight 86.183 kg GENERAL EXAM: Alert, pleasant 52-year-old white male comfortable in no apparent distress. HEAD: Normocephalic/atraumatic. EYES: Normal reaction of pupils, equal size. Conjunctiva pink, sclera white. NOSE: Clear with pink turbinates. THROAT: No erythema or exudates. NECK: No masses, no JVD, no thyroid enlargement, no adenopathy. CHEST: No chest wall deformity. Symmetrical expansion. LUNGS: Equal air entry with limited crackles at the left posterior base but no wheeze, rhonchi or dullness. CVS: Regular rate and rhythm, normal S1 and S2, no gallops, no murmurs, no rubs ABDOMEN: Soft, nontender. No hepatosplenomegaly, normal bowel sounds, no guarding or rigidity. Patient has a PEG tube for supplemental bolus feeds EXTREMITIES: No clubbing, no edema, no cyanosis, 2+ pulses and upper and lower extremities. MUSCULOSKELETAL: Muscle strength and tone normal. SPINE: No scoliosis or deformity SKIN: No rashes CENTRAL NERVOUS SYSTEM: Alert and oriented -3. No focal deficits, tone is normal in all 4 extremities. PSYCHIATRIC: Alert and oriented -3. Appropriate affect. Intact judgment and insight. Results - Laboratory Findings CBC and BMP: 03/28/18 07:34 03/28/18 07:34 PT/INR, D-dimer PT 9.8 sec (9.0-12.0) 03/28/18 07:34 INR 1.0 (<1.2) 03/28/18 07:34 Abnormal lab findings: Abnormal Labs 03/28/18 03/28/18 03/28/18 07:34 07:34 07:34 Lymphocytes # 0.7 L Carbon Dioxide 31 H Creatinine 0.53 L Glucose 269 H POC Glucose (mg/dL) Magnesium 1.4 L Total Creatine Kinase 27 L Albumin 3.1 L 03/28/18 13:21 Lymphocytes # Carbon Dioxide Creatinine Glucose POC Glucose (mg/dL) 267 H Magnesium Total Creatine Kinase Albumin - Diagnostic Findings Chest x-ray: report reviewed, image reviewed Additional studies: EKG reviewed Assessment and Plan Plan: Assessment: #1. Acute hypoxic respiratory failure secondary to chronic aspiration, cannot rule out pneumonia. #2. History of recurrent respiratory infection, pneumonia, aspiration secondary to chronic dysphagia related to history of brainstem stroke #3. History of MRSA pneumonia in December 2017 #4. Status post outpatient bronchoscopy on 03/26/2018, and bronchial washing cultures are still pending at this time #5. Dysphagia secondary to left brain stem stroke in June 2016, status post PEG tube placement, and patient receives partial oral feedings with pure diet, and supplements nutrition with tube feedings. Patient is undergoing speech therapy on an outpatient basis, and his swallowing has improved. Most recent MBS in December 2017 showed no aspiration, but did show significant pooling within the hypopharynx during swallowing. #6. Remote history of left lower extremity DVT and PE, completed anticoagulation treatment #7. Hypertension, hyperlipidemia #8. Diabetes mellitus Plan: We'll await the final results of the bronchial wash cultures, patient can continue with Augmentin for now. Continue nebulized bronchodilators, IV steroids, GI and DVT prophylaxis. Consult speech therapy for any new recommendations. We'll continue to follow I performed a history & physical examination of the patient and discussed their management with my nurse practitioner, Adriana Tena. I reviewed the nurse practitioner's note and agree with the documented findings and plan of care. Lung sounds are positive for left lower lobe crackles. The findings and the impression was discussed with the patient. I attest to the documentation by the nurse practitioner. Time with Patient: Greater than 30
[2018-03-28 17:07] LABS: Glucose,Whole Blood 326 mg/dL (75-99)
[2018-03-28] MEDS: VANCOMYCIN 1,500 MG in SODIUM CHLORIDE 0.9% 250 ML IVPB SCH (17:16)
[2018-03-28] MEDS: MAGNESIUM SULFATE-D5W PMX 1 GM in DEXTROSE/WATER 1 100ML.BAG IVPB SCH ×2 (17:16→18:35)
[2018-03-28] MEDS: PANTOPRAZOLE 40 MG TABLET PO SCH (17:16)
[2018-03-28] MEDS: methylPREDNISolone SOD SUCCI 125 MG/2 ML VIAL IV SCH (18:14)
[2018-03-28] MEDS: PIPERACILLIN-TAZOBACTAM 3.375 GM in DEXTROSE/WATER 1 50ML.BAG IVPB SCH (18:37)
[2018-03-28 20:52] LABS: Glucose,Whole Blood 280 mg/dL (75-99)
[2018-03-28] MEDS ORDERED: INSULIN DETEMIR 100 UNIT/ML 10 ML VIAL SQ SCH (21:00)
[2018-03-28] MEDS ORDERED: ZOLPIDEM 5 MG TAB PO SCH (21:00)
[2018-03-28] MEDS ORDERED: AMOXIC-POT CLAV 875-125MG 1 EACH TAB PO SCH (21:00)
[2018-03-28] MEDS ORDERED: ATORVASTATIN 20 MG TAB PO SCH (21:00)
[2018-03-28] MEDS: METOPROLOL TARTRATE 25 MG TAB PO SCH (21:49)
[2018-03-28] MEDS: guaiFENesin 600 MG TABLET.ER PO SCH (22:04)
[2018-03-29] MEDS: PIPERACILLIN-TAZOBACTAM 3.375 GM in DEXTROSE/WATER 1 50ML.BAG IVPB SCH ×2 (01:16→08:02)
[2018-03-29] MEDS: methylPREDNISolone SOD SUCCI 125 MG/2 ML VIAL IV SCH ×3 (01:16→11:28)
[2018-03-29 04:32] LABS: Hemoglobin A1C 9.9 % (4.0-6.0)
[2018-03-29] MEDS: VANCOMYCIN 1,500 MG in SODIUM CHLORIDE 0.9% 250 ML IVPB SCH (06:51)
[2018-03-29 07:30] LABS: Glucose,Whole Blood 283 mg/dL (75-99)
[2018-03-29] MEDS: PANTOPRAZOLE 40 MG TABLET PO SCH (08:02)
[2018-03-29] MEDS: METOPROLOL TARTRATE 25 MG TAB PO SCH (08:02)
[2018-03-29] MEDS: INSULIN ASPART 100 UNIT/ML 1 ML 10 ML VIAL SQ SCH ×2 (08:02→11:28)
[2018-03-29] MEDS: guaiFENesin 600 MG TABLET.ER PO SCH (08:02)
[2018-03-29 08:07] VITALS: BMI 27.2
[2018-03-29] MEDS: IPRATROPIUM-ALBUTEROL 3 ML NEB INHALATION SCH ×2 (08:24→12:16)
[2018-03-29 08:33] LABS: HCT 40.5 % (39.0-53.0); HGB 12.7 gm/dL (13.0-17.5); Hypochromasia Slight; MCH 30.9 pg (25.0-35.0); MCHC 31.3 g/dL (31.0-37.0); MCV 98.7 fL (80.0-100.0); Mean Platelet Volume 6.2; Platelet Count 306 k/uL (150-450); RDW 13.8 % (11.5-15.5); WBC 11.3 k/uL (3.8-10.6)
[2018-03-29 08:53] LABS: Anion Gap 7 mmol/L; Blood Urea Nitrogen 17 mg/dL (9-20); Calcium 8.7 mg/dL (8.4-10.2); Carbon Dioxide 33 mmol/L (22-30); Chloride 98 mmol/L (98-107); Glucose 282 mg/dL (74-99); Potassium 4.8 mmol/L (3.5-5.1); Sodium 138 mmol/L (137-145)
[2018-03-29] MEDS ORDERED: FAMOTIDINE 20 MG TAB PO SCH (09:00)
[2018-03-29] MEDS ORDERED: LORATADINE 10 MG TAB PO SCH (09:00)
[2018-03-29] MEDS ORDERED: PIOGLITAZONE 30 MG TAB PO SCH (09:00)
[2018-03-29] MEDS ORDERED: ENOXAPARIN 40 MG/0.4 ML SYRINGE SQ SCH (09:00)
--- NOTE | 2018-03-29 10:34 | ECHOF ---
Referral Reason:chest pain MEASUREMENTS -------- HEIGHT: 182.9 cm WEIGHT: 86.2 kg BP: 117/58 RVIDd: 3.0 cm (< 3.3) IVSd: 1.4 cm (0.6 - 1.1) LVIDd: 4.2 cm (3.9 - 5.3) LVPWd: 1.3 cm (0.6 - 1.1) IVSs: 1.7 cm LVIDs: 2.4 cm LVPWs: 2.0 cm Ao Diam: 3.9 cm (2.0 - 3.7) AV Cusp: 1.9 cm (1.5 - 2.6) LA Diam: 3.1 cm (2.7 - 3.8) MV EXCURSION: 15.618 mm (> 18.000) MV EF SLOPE: 90 mm/s (70 - 150) EPSS: 0.5 cm MV E Bill: 0.88 m/s MV DecT: 201 ms MV A Bill: 0.63 m/s MV E/A Ratio: 1.40 RAP: 5.00 mmHg RVSP: 21.62 mmHg FINDINGS -------- Sinus rhythm. This was a technically good study. The left ventricular size is normal. There is mild concentric left ventricular hypertrophy. Overa ll left ventricular systolic function is normal with, an EF between 55 - 60 %. The right ventricle is normal in size and function. The left atrium is normal in size. The right atrium is normal in size. The aortic valve is trileaflet, and appears structurally normal. No aortic stenosis or regurgitation. There is trace mitral regurgitation. Mild tricuspid regurgitation present. The right ventricular systolic pressure, as measured by Doppl er, is 21.62mmHg. Pulmonic valve appears structurally normal. The aortic root is dilated measuring 3.9. Normal inferior vena cava with normal inspiratory collapse consistent with estimated right atrial pre ssure of 5 mmHg. The pericardium is normal. CONCLUSIONS -------- 1. Sinus rhythm. 2. This was a technically good study. 3. The left ventricular size is normal. 4. There is mild concentric left ventricular hypertrophy. 5. Overall left ventricular systolic function is normal with, an EF between 55 - 60 %. 6. The right ventricle is normal in size and function. 7. The left atrium is normal in size. 8. The right atrium is normal in size. 9. The aortic valve is trileaflet, and appears structurally normal. No aortic stenosis or regurgitati on. 10. There is trace mitral regurgitation. 11. Mild tricuspid regurgitation present. 12. The right ventricular systolic pressure, as measured by Doppler, is 21.62mmHg. 13. Pulmonic valve appears structurally normal. 14. The aortic root is dilated measuring 3.9. 15. Normal inferior vena cava with normal inspiratory collapse consistent with estimated right atrial pressure of 5 mmHg. 16. The pericardium is normal. HISTOPATHOLOGY TECHNICIAN: Shabnam Rowland RDCS
[2018-03-29 11:20] LABS: Glucose,Whole Blood 252 mg/dL (75-99)
[2018-03-29] MEDS: SODIUM CHLORIDE 0.9% 1,000 ML IV SCH (11:28)
[2018-03-29 11:31] VITALS: BP 113/64; RESP 16; TEMP 97.9
--- NOTE | 2018-03-29 12:59 | P.PN ---
Subjective Progress Note Date: 03/29/18 Principal diagnosis: Acute hypoxic respiratory failure secondary to chronic aspiration, cannot rule out pneumonia This is a 52-year-old white male patient of Dr. Marsh, who presented to the emergency department on 03/28/2018 for evaluation of increased coughing, congestion, shortness of breath and overall not feeling well for last 2 days. He also reports on and off chest discomfort in left chest without any specific exacerbating factors, which is usually short lasting, about a minute, with no other accompanying symptoms. Patient is well-known to our service for his history of recurrent respiratory tract infection/pneumonia/aspiration with multiple hospitalizations. Patient had a brainstem stroke 2 years ago, he suffers from chronic dysphagia with multiple episodes of aspiration pneumonia. Patient had a PEG tube put in, and currently he receives 4-5 as of Jevity tube feeding on the daily basis via bolus feeds. He has been working with outpatient speech therapy, his swallowing has improved and he is able to eat a modified diet by mouth in addition to tube feedings. He is able to eat mashed potatoes and pured material, drink water, and he reports that his speech therapist is happy with his progress, and he will soon be upgraded to pancakes and soft diet. He was last hospitalized in December 2017 for multifocal pneumonia consistent with aspiration, and sputum cultures were positive for MRSA. Patient had a repeat video swallowing evaluation during last hospitalization which showed no aspiration, but did show significant pooling within the hypopharynx during swallowing. Patient was treated with Zosyn and vancomycin, improved, was discharged home on Bactrim. Patient was seen in follow-up by Dr. Barron on all 03/25/2018 and patient was complaining of cough and congestion, and on and off chest pain. Cardiac evaluation including a coronary angiogram in February 2018 was within normal limits. Chest x-ray showed bilateral lower lobe pulmonary infiltrates slightly worse compared to his previous chest x-ray findings. Patient underwent an outpatient bronchoscopy with BAL on 03/26/[address] Fitzpatrick, and bronchial wash cultures are still pending at this time. He was placed on empiric antibiotics in the form of Augmentin and was sent home. However his worsening chest congestion and cough, patient presented to the emergency department for further evaluation and treatment. Chest x-ray showed no acute pulmonary disease. EKG showed normal sinus rhythm. Labs were reviewed , showed WBC of 8.5, hemoglobin at 13.6, sodium is 140, potassium is 4.8, CO2 of 31, BUN of 10, creatinine is 0.53. Troponin is negative proBNP is 243, within normal limits. Patient is afebrile, hemodynamically stable, denies any fever or chills, currently on 3 L per nasal cannula his pulse ox is 91-92%. Lung sounds are positive for crackles at the left posterior base. Patient remains on Augmentin, IV steroids, and he will be admitted for further management On 03/29/2018 patient seen in follow-up on medical surgical floor. Him and comfortable, denies any distress, his coughing has subsided, not significantly congested, sounds are positive for some limited crackles at the bases, no wheezes, no rhonchi, room air pulse ox is 94%, he is afebrile, hemodynamically stable. Bronchial wash cultures showed gram-negative bacilli, many gram- positive cocci, multiple morphologies present, final report is pending. No fever, no chills, no chest pain, he has been ambulating, and he is anxious to go home today. Echocardiogram was completed, and showed preserved left ventricular systolic function with EF between 55-60%. His labs were reviewed, showed a WBC of 11.3, hemoglobin is 12.7, BMP was relatively unremarkable. No acute issues overnight, patient was made nothing by mouth the exception of ice chips and water. he was seen by speech therapist and the recommendation is to of pleasure feeds only which the patient seems to exceed on a regular basis. Patient wants to be able to eat by mouth, he states he can't imagine not being able to eat. He has lost weight gradually since he had his stroke, and just since the beginning of this year July 2017 till now, he is down 13.1 kg. He receives Jevity 4-5 cans daily, and in view of his chronic aspiration, the amount of oral feedings will have to be decreased, and we may have to increase his tube feeding amount to meet his nutritional goals. Patient is requesting to go home, he is currently on Zosyn and vancomycin, final cultures of the bronchial washings are pending. Clinically patient is stable, and from pulmonary perspective he is stable for discharge home with follow-up in the office. Objective - Vital Signs Vital signs: Vital Signs Temp 97.9 F 03/29/18 07:00 Pulse 84 03/29/18 12:16 Resp 16 03/29/18 07:00 BP 113/64 03/29/18 07:00 Pulse Ox 94 L 03/29/18 07:00 Intake & Output 03/28/18 03/29/18 03/29/18 18:59 06:59 18:59 Weight 86.183 kg 86.183 kg Other: # Voids 2 - Exam GENERAL EXAM: Fatigued, 76-year-old white male, resting in the ER, on the gurney , febrile HEAD: Normocephalic/atraumatic. EYES: Normal reaction of pupils, equal size. Conjunctiva pink, sclera white. NOSE: Clear with pink turbinates. THROAT: No erythema or exudates. NECK: No masses, no JVD, no thyroid enlargement, no adenopathy. CHEST: No chest wall deformity. Symmetrical expansion. Patient has a right upper chest MediPort, right anterior lower chest Pleurx catheter, covered with the dressing LUNGS: Diffuse rhonchi, frequent just a cough, at times productive of brownish sputum CVS: Regular rate and rhythm, normal S1 and S2, no gallops, no murmurs, no rubs ABDOMEN: Soft, nontender. No hepatosplenomegaly, normal bowel sounds, no guarding or rigidity. EXTREMITIES: No clubbing, no edema, no cyanosis, 2+ pulses and upper and lower extremities. MUSCULOSKELETAL: Muscle strength and tone normal. SPINE: No scoliosis or deformity SKIN: No rashes CENTRAL NERVOUS SYSTEM: Lethargic, but easily arousable, no focal deficits, tone is normal in all 4 extremities. PSYCHIATRIC: Alert and oriented -3. Appropriate affect. Intact judgment and insight. - Labs CBC & Chem 7: 03/29/18 08:14 03/29/18 08:14 Labs: Abnormal Lab Results - Last 24 Hours (Table) 03/28/18 03/28/18 03/28/18 Range/Units 07:34 13:21 17:05 WBC (3.8-10.6) k/uL RBC (4.30-5.90) m/uL Hgb (13.0-17.5) gm/dL Carbon Dioxide (22-30) mmol/L Creatinine (0.66-1.25) mg/dL Glucose (74-99) mg/dL POC Glucose (mg/dL) 267 H 326 H (75-99) mg/dL Hemoglobin A1c 9.9 H (4.0-6.0) % 03/28/18 03/29/18 03/29/18 Range/Units 20:40 07:28 08:14 WBC 11.3 H (3.8-10.6) k/uL RBC 4.10 L (4.30-5.90) m/uL Hgb 12.7 L (13.0-17.5) gm/dL Carbon Dioxide (22-30) mmol/L Creatinine (0.66-1.25) mg/dL Glucose (74-99) mg/dL POC Glucose (mg/dL) 280 H 283 H (75-99) mg/dL Hemoglobin A1c (4.0-6.0) % 03/29/18 03/29/18 Range/Units 08:14 11:17 WBC (3.8-10.6) k/uL RBC (4.30-5.90) m/uL Hgb (13.0-17.5) gm/dL Carbon Dioxide 33 H (22-30) mmol/L Creatinine 0.56 L (0.66-1.25) mg/dL Glucose 282 H (74-99) mg/dL POC Glucose (mg/dL) 252 H (75-99) mg/dL Hemoglobin A1c (4.0-6.0) % Assessment and Plan Plan: Assessment: #1. Acute hypoxic respiratory failure secondary to chronic aspiration, cannot rule out pneumonia. #2. History of recurrent respiratory infection, pneumonia, aspiration secondary to chronic dysphagia related to history of brainstem stroke #3. History of MRSA pneumonia in December 2017 #4. Status post outpatient bronchoscopy on 03/26/2018, and bronchial washing cultures are still pending at this time #5. Dysphagia secondary to left brain stem stroke in June 2016, status post PEG tube placement, and patient receives partial oral feedings with pure diet, and supplements nutrition with tube feedings. Patient is undergoing speech therapy on an outpatient basis, and his swallowing has improved. Most recent MBS in December 2017 showed no aspiration, but did show significant pooling within the hypopharynx during swallowing. #6. Remote history of left lower extremity DVT and PE, completed anticoagulation treatment #7. Hypertension, hyperlipidemia #8. Diabetes mellitus Plan: Patient remains clinically stable, improving, less coughing and congestion. Afebrile, bronchial wash cultures are not yet finalized, preliminary cultures are positive for gram-negative bacilli, some gram-positive cocci with different morphologies, he is requesting to go home. Remains stable tolerating ambulation , vital signs are stable. Patient is clear for discharge from pulmonary standpoint, follow up with Dr. Barron next week, since will be discharged home on outpatient course of Levaquin and Augmentin. Patient will need to follow with his speech therapist, the recommendation is for pleasure feeds only , will ask for RD recommendation for tube feeding recommendation to maintain his nutritional goals. Did have a weight loss of about 13 kg since the beginning of this year. I performed a history & physical examination of the patient and discussed their management with my nurse practitioner, Adriana Tena. I reviewed the nurse practitioner's note and agree with the documented findings and plan of care. Lung sounds are positive for limited lower lobe crackles. The findings and the impression was discussed with the patient. I attest to the documentation by the nurse practitioner. Time with Patient: Less than 30
[2018-03-29 13:02] VITALS: PULSE 78
--- NOTE | 2018-03-29 20:17 | P.DS ---
Providers Date of admission: 03/28/18 12:01 Expected date of discharge: 03/29/18 Attending physician: Latricia Hughes DO Consults: 03/28/18 12:01 Consult Physician Routine Consulting Provider: Walter Soto Consult Reason/Comments: COPD exacerbation Do you want consulting provider notified?: Yes Primary care physician: Dasha Marsh MD Hospital Course: Discharge Diagnosis: Tracheobronchitis Acute hypoxic respiratory failure secondary to chronic aspiration Dysphasia with PEG tube in place Diabetes mellitus type 2 with A1c 9.9 Hypomagnesemia Hypertension Dyslipidemia Hospital Course: Patient is a 52-year-old gentleman history of recurrent pneumonia due to aspiration from pharyngeal dysphagia associated with a stroke back in 2016, diabetes mellitus type 2, and hypertension who presented to the ER with shortness of breath. On arrival to the ER he was hypoxic with a room air sat is 80. He is also found to be tachycardic with a heart rate of 104. Chest x- ray showed no acute process. He received multiple breathing treatments and a dose of Solu-Medrol still significantly dyspneic. There is concern for failed outpatient treatment of pneumonia and he was admitted. Patient had seen Dr. Fitzpatrick and had a bronch performed on 03/26 one day prior to admission. He was found to have pneumonia with purulent secretions. He was placed on Augmentin. Gramstain was reviewed and at time of admission was showing gram-positive cocci. He was amintained of IV levaquin. On the morning of 03/29 he had rapid improvement and was feeling much better. He was requesting to be discharged. His case was discussed with pulmonary and he was determined stable for discharge. The will complete a course of levaquin and augment with his sputum showing Gram + on gram stain and growing gram negataive bacilli at time of discharge. He will follow-up with Dr. Barron on 04/05 for final culture results. He was noted to have an A1C of 9.9 and his lantus was increased. He was also asked to follow-up with Dr. Marsh as his insulin regiment will need durter adjustment. He was seen by dietary who recommneded increasing his tubefeeds at home to 6.5 cans daily and he was given instructions. He was discharged home. Patient was admitted as inpatient and improved faster than anticipated and was therefore discharged in less than 2 midnights. Patient seen and examined at bedside. Vital signs reviewed and stable. General: non toxic, no distress, appears at stated age Derm: warm, dry Head:,normocephali,symmetrc Eyes EOMI, no lid lag, anicteric sclera Mouth: no lip lesion, mucus membranes moist Cardiovascular: S1S2 reg, no murmur, positive posterior tibial pulse bilateral, Lungs: decreased breath sounds bilateral, no rhonchi, no rales , no accessory muscle use Abdominal: soft, nontender to palpation, no guarding, no appreciable organomegaly Ext: no gross muscle atrophy, no edema, no contractures Neuro: CN II-XI grossly intact, no focal neuro deficits Psych: Alert, oriented, appropriate affect A total of 25 minutes of time were spent preparing this complex discharge summary . Pertinent Studies: Echo EF 55-60% CXR- no acute process Patient Condition at Discharge: Stable Plan - Discharge Summary Discharge Rx Participant: Yes New Discharge Prescriptions: New Levofloxacin [Levaquin] 750 mg PO DAILY 5 Days #5 tab Continue Simvastatin [Zocor] 40 mg PO HS Metoprolol Tartrate [Lopressor] 25 mg PO BID Omeprazole 40 mg PO BID Insulin Aspart [NovoLOG] See Protocol SQ AC-TID PRN PRN Reason: Blood Sugar - High Ranitidine HCl [Zantac] 300 mg PO DAILY EPINEPHrine (Auto Inject) [Epipen] 0.3 mg IM ONCE PRN PRN Reason: Anaphylaxis Loratadine [Claritin] 10 mg PO DAILY Zolpidem [Ambien] 5 mg PO HS Pioglitazone [Actos] 30 mg PO DAILY Amoxic-Pot Clav 875-125Mg [Augmentin 875-125] 1 tab PO Q12HR Changed Insulin Glargine,Hum.rec.anlog [Basaglar Kwikpen U-100] 27 unit SQ HS #0 Discharge Medication List Metoprolol Tartrate [Lopressor] 25 mg PO BID 10/13/16 [History] Simvastatin [Zocor] 40 mg PO HS 10/13/16 [History] Omeprazole 40 mg PO BID 06/13/17 [History] Insulin Aspart [NovoLOG] See Protocol SQ AC-TID PRN 09/19/17 [History] Ranitidine HCl [Zantac] 300 mg PO DAILY 10/25/17 [History] EPINEPHrine (Auto Inject) [Epipen] 0.3 mg IM ONCE PRN 12/25/17 [History] Loratadine [Claritin] 10 mg PO DAILY 12/25/17 [History] Zolpidem [Ambien] 5 mg PO HS 03/26/18 [History] Amoxic-Pot Clav 875-125Mg [Augmentin 875-125] 1 tab PO Q12HR 03/28/18 [History] Pioglitazone [Actos] 30 mg PO DAILY 03/28/18 [History] Insulin Glargine,Hum.rec.anlog [Basaglar Kwikpen U-100] 27 unit SQ HS #0 [Rx] Levofloxacin [Levaquin] 750 mg PO DAILY 5 Days #5 tab 03/29/18 [Rx] Follow up Appointment(s)/Referral(s): Dasha Masrh MD [Primary Care Provider] - 1-2 days (office closed today, please call for appointment) [facility], [NON-STAFF] - [facility], [REFERRING] - Ingrid Barron MD [STAFF PHYSICIAN] - 04/05/18 2:30 am Patient Instructions/Handouts: COPD (Chronic Obstructive Pulmonary Disease) (DC ) Activity/Diet/Wound Care/Special Instructions: Pureed diet as pleasure feeds, tube feeding Rec: 6.5 cans Glucerna 1.2 bolus daily=>1560cc, 1875kcal, 94 g pro with 100cc H2O Q4 hours Activity as tolerated Discharge Disposition: HOME WITH HOME HEALTH SERVICES
[2018-03-30] MEDS ORDERED: VANCOMYCIN TROUGH DUE 1 EACH MISC MISCELLANE ONE (04:00)
== END 2018-03-29 14:49 | disposition home health service (06) | DRG 202 ==
LOC: EC 07:04 → 4MS4W 12:01
PROVIDERS: ADMIT Internal Medicine; ATTEND Internal Medicine
DX: J40 Bronchitis, not specified as acute or chronic (principal); J96.01 Acute respiratory failure with hypoxia; E11.8 Type 2 diabetes mellitus with unspecified complications; E83.42 Hypomagnesemia; R13.13 Dysphagia, pharyngeal phase; J44.9 Chronic obstructive pulmonary disease, unspecified; E78.5 Hyperlipidemia, unspecified; I10 Essential (primary) hypertension; K21.9 Gastro-esophageal reflux disease without esophagitis; H26.9 Unspecified cataract; K58.9 Irritable bowel syndrome, unspecified; F32.9 Major depressive disorder, single episode, unspecified; F41.9 Anxiety disorder, unspecified; R25.1 Tremor, unspecified; I69.991 Dysphagia following unspecified cerebrovascular disease; Z79.4 Long term (current) use of insulin; Z79.899 Other long term (current) drug therapy; Z86.010 Personal history of colon polyps; Z93.1 Gastrostomy status; Z87.01 Personal history of pneumonia (recurrent); Z86.711 Personal history of pulmonary embolism; Z86.718 Personal history of other venous thrombosis and embolism; Z86.14 Personal history of Methicillin resistant Staphylococcus aureus infection; Z88.8 Allergy status to other drugs, medicaments and biological substances; Z88.1 Allergy status to other antibiotic agents; Z91.030 Bee allergy status; Z90.49 Acquired absence of other specified parts of digestive tract; Z98.1 Arthrodesis status; Z80.9 Family history of malignant neoplasm, unspecified; Z82.49 Family history of ischemic heart disease and other diseases of the circulatory system
CPT/HCPCS: 36415; 71046; 80048; 80053; 82550; 82553; 83036; 83735; 83880; 84484; 85025; 85027; 85610; 85730; 93005; 93306; 94640; 94760; 96361; 96365; 96375; 99291

== ENCOUNTER 2018-04-26 14:56 | Inpatient (IN) | payer OTHER ==
[2018-04-26 15:54] LABS: Basophils % (A) 0 %; Eosinophils # (A) 0.1 k/uL (0-0.7); Eosinophils % (A) 1 %; HCT 40.9 % (39.0-53.0); HGB 13.1 gm/dL (13.0-17.5); Lymphocytes # (A) 0.9 k/uL (1.0-4.8); Lymphocytes % (A) 6 %; MCH 30.8 pg (25.0-35.0); MCV 96.2 fL (80.0-100.0); Mean Platelet Volume 7.6; Monocytes # (A) 0.8 k/uL (0-1.0); Monocytes % (A) 6 %; Neutrophils # (A) 12.2 k/uL (1.3-7.7); Neutrophils % (A) 87 %; Platelet Count 240 k/uL (150-450); RBC 4.25 m/uL (4.30-5.90); WBC 14.1 k/uL (3.8-10.6)
--- NOTE | 2018-04-26 15:54 | ED ---
Chest Pain HPI - General Chief Complaint: Chest Pain Stated Complaint: low blood pressure,fever Time Seen by Provider: 04/26/18 15:14 Source: patient, RN notes reviewed, old records reviewed Mode of arrival: ambulatory Limitations: no limitations - History of Present Illness Initial Comments: This is a 53-year-old male the ER for evaluation per patient currently with multiple complaints, chest pain shortness of breath, patient is calm. And complex medical history for heart disease as well as multiple issues history of surgical history. Patient was seen in her primary care doctor office today had low blood pressure as well as difficulty with breathing. Patient was sent ER for evaluation. Patient continues to complain of weakness and lightheadedness, also complaining of chest pain shortness of breath MD Complaint: chest pain, other (Shortness of breath and weakness) -: days(s) Onset: during rest, during exertion Pain Location: substernal, left chest Pain Radiation: none Severity: moderate Severity scale (1-10): 3 Quality: heaviness Consistency: intermittent Improves With: nothing Worsens With: nothing Other Symptoms: cough Treatments Prior to Arrival: none - Related Data Home Medications Medication Instructions Recorded Confirmed Metoprolol Tartrate [Lopressor] 12.5 mg PO DAILY 10/13/16 04/26/18 Simvastatin [Zocor] 40 mg PO HS 10/13/16 04/26/18 Omeprazole 40 mg PO BID 06/13/17 04/26/18 Insulin Aspart [NovoLOG] See Protocol SQ AC-TID PRN 09/19/17 04/26/18 Ranitidine HCl [Zantac] 300 mg PO DAILY 10/25/17 04/26/18 EPINEPHrine (Auto Inject) [Epipen] 0.3 mg IM ONCE PRN 12/25/17 04/26/18 Loratadine [Claritin] 10 mg PO DAILY 12/25/17 04/26/18 Pioglitazone [Actos] 30 mg PO DAILY 03/28/18 04/26/18 Albuterol Inhaler [Ventolin Hfa 1 - 2 puff INHALATION RT-Q6H PRN 04/26/18 Inhaler] Amitriptyline HCl [Elavil] 25 mg PO BID 04/26/18 04/26/18 Escitalopram [Lexapro] 20 mg PO DAILY 04/26/18 04/26/18 Fluticasone Nasal [place] [Flonase 1 - 2 spray EA NOSTRIL DAILY 04/26/18 04/26/18 Nasal [place]] Gabapentin 600 mg PO TID 04/26/18 04/26/18 Insulin Glargine,Hum.rec.anlog 15 unit SQ HS 04/26/18 04/26/18 [Basaglar Kwikpen U-100] Sulfamethox-Tmp 800-160Mg [Bactrim 1 tab PO Q12H 04/26/18 04/26/18 DS 800-160 mg] busPIRone HCL 15 mg PO BID 04/26/18 04/26/18 traZODone HCL [Desyrel] 100 mg PO HS 04/26/18 04/26/18 Allergies Allergy/AdvReac Type Severity Reaction Status Date / Time venom-honey bee Allergy Anaphylaxis Verified 04/26/18 16:24 [bee venom (honey bee)] metformin AdvReac Diarrhea Verified 04/26/18 16:24 vancomycin AdvReac kidneys Verified 04/26/18 16:24 shut down Review of Systems ROS Statement: Those systems with pertinent positive or pertinent negative responses have been documented in the HPI. ROS Other: All systems not noted in ROS Statement are negative. EKG Findings - EKG Comments: EKG Findings:: She can't baby forever EKG shows sinus tachycardia rate of 101, CO 132, QRS 76, QTc 459 Past Medical History Past Medical History: Chest Pain / Angina, CVA/TIA, Diabetes Mellitus, Deep Vein Thrombosis (DVT), GERD/Reflux, Hyperlipidemia, Hypertension, Musculoskeletal Disorder, Pneumonia, Pulmonary Embolus (PE), Syncope Additional Past Medical History / Comment(s): CVA (06/2016), RIGHT SIDED WEAKNESS, HAS PEG TUBE WITH GLUCERNA 2.5 -TAKES 5 CANS DAILY. Purred foods. HX OF ASPIRATION PNEUMONIA, LUMBAR STENOSIS. , HX IBS. COLON POLYPS, CATARACTS, RIGHT SIDE OF BODY IS TEMPERATURE INTOLERANT. , NEUROPATHY OF HANDS & FEET, HAND TREMORS., BACK PAIN. History of Any Multi-Drug Resistant Organisms: MRSA Date of last positivie culture/infection: 03/26/18 MDRO Source:: BRONCH Past Surgical History: Appendectomy, Cholecystectomy, Heart Catheterization, Orthopedic Surgery Additional Past Surgical History / Comment(s): EXPLORATORY LAPAROTOMY, FUSION L4 -L5, COLONOSCOPY, PEG tube. , REPAIR HIATAL HERNIA, CARPAL TUNNEL SURG.bronchoscopy Past Anesthesia/Blood Transfusion Reactions: No Reported Reaction Additional Past Anesthesia/Blood Transfusion Reaction / Comment(s): COUGHS WHEN HE LIES FLAT Past Psychological History: Anxiety, Depression Smoking Status: Never smoker Past Alcohol Use History: None Reported Past Drug Use History: None Reported - Past Family History Father History Unknown: Yes Family Medical History: No Reported History Mother Family Medical History: Cancer, Pulmonary Embolus General Exam Limitations: no limitations General appearance: alert, anxious, in distress Head exam: Present: atraumatic, normocephalic, normal inspection Eye exam: Present: normal appearance, PERRL, EOMI. Absent: scleral icterus, conjunctival injection, periorbital swelling ENT exam: Present: normal exam, mucous membranes moist Neck exam: Present: normal inspection. Absent: tenderness, meningismus, lymphadenopathy Respiratory exam: Present: respiratory distress, accessory muscle use, decreased breath sounds, prolonged expiratory. Absent: wheezes, rales, rhonchi , stridor Cardiovascular Exam: Present: regular rate, normal rhythm, tachycardia, normal heart sounds. Absent: systolic murmur, diastolic murmur, rubs, gallop, clicks GI/Abdominal exam: Present: soft, normal bowel sounds. Absent: distended, tenderness, guarding, rebound, rigid Extremities exam: Present: normal inspection, full ROM, normal capillary refill. Absent: tenderness, pedal edema, joint swelling, calf tenderness Back exam: Present: normal inspection Neurological exam: Present: alert, oriented X3, CN II-XII intact Psychiatric exam: Present: normal affect, normal mood Skin exam: Present: warm, dry, intact, normal color. Absent: rash Course Vital Signs 04/26/18 04/26/18 04/26/18 15:04 15:34 15:40 Temperature 98.2 F Pulse Rate 104 H 91 Respiratory 18 14 19 Rate Blood Pressure 85/53 93/54 O2 Sat by Pulse 91 L 95 Oximetry 04/26/18 04/26/18 04/26/18 15:48 16:00 16:20 Temperature Pulse Rate 90 Respiratory 36 H Rate Blood Pressure 93/54 93/54 O2 Sat by Pulse 93 L 95 Oximetry - Reevaluation(s) Reevaluation #1: 04/26/18 16:38 Medical records thoroughly reviewed Reevaluation #2: 04/26/18 16:38 Patient states he is much improvement with prolonged breathing treatment. Patient's blood pressure improving with IV hydration, patient still complaining of pain Reevaluation #3: 04/26/18 16:39 Studies Chest x-ray is positive for multilobar pneumonia Chest Pain MDM - MDM 51 female the ER with chest pain, atypical. Patient does have bilateral lateral and multilobar pneumonia, will place on IV antibiotics. Patient also complaining of chest pain we'll trend troponin, patient given pain control here in the ER and IV hydration Critical Care Time Critical Care Time: Yes Total Critical Care Time: 31 Disposition Clinical Impression: Atypical chest pain, Chest pain, Nosocomial pneumonia, Multifocal pneumonia, Hypoxemia, Leukocytosis Disposition: ADMITTED IP TO THIS HOSP Condition: Fair Is patient prescribed a controlled substance at d/c from ED?: No Referrals: Dasha Marsh MD [Primary Care Provider] - 1-2 days
[2018-04-26 15:56] LABS: ALT 12 U/L (21-72); AST 24 U/L (17-59); Albumin 3.3 g/dL (3.5-5.0); Alkaline Phosphatase 75 U/L (38-126); Anion Gap 8 mmol/L; Blood Urea Nitrogen 13 mg/dL (9-20); Calcium 8.6 mg/dL (8.4-10.2); Carbon Dioxide 32 mmol/L (22-30); Chloride 98 mmol/L (98-107); Glucose 188 mg/dL (74-99); Lipase 22 U/L (23-300); Magnesium 1.4 mg/dL (1.6-2.3); Potassium 4.1 mmol/L (3.5-5.1); Sodium 138 mmol/L (137-145); Total Bilirubin 0.9 mg/dL (0.2-1.3); Total Protein 6.8 g/dL (6.3-8.2)
[2018-04-26 16:02] LABS: D-Dimer 0.52 mg/L FEU (<0.60); Partial Thromboplastin Time 24.6 sec (22.0-30.0); Prothrombin Time 10.1 sec (9.0-12.0)
--- NOTE | 2018-04-26 16:04 | XR ---
EXAMINATION TYPE: XR chest 2V DATE OF EXAM: 04/26/2018 COMPARISON: 03/28/2018 HISTORY: Shortness of breath and chest pain TECHNIQUE: Frontal and lateral views of the chest are obtained. FINDINGS: New patchy right upper lobe opacity and persistent lingular opacity are seen. Right infrah ilar opacity is also present. Remainder the lungs are clear. Cardia mediastinal silhouette is within normal limits. Multilevel mild degenerative changes of the thoracic spine are present. IMPRESSION: New multifocal right upper lung and infrahilar opacity suspicious for multifocal pneumon ia. Increasing confluence of the lingular opacity may also represent pneumonia although follow-up to resolution is recommended to exclude pulmonary nodule as this was present on the prior exam of 018.
[2018-04-26 16:05] LABS: Creatine Kinase 39 U/L (55-170)
[2018-04-26] MEDS ORDERED: MORPHINE SULFATE 4 MG/ML SYRINGE IVP STA (16:07)
[2018-04-26] MEDS ORDERED: SODIUM CHLORIDE 0.9% 1,000 ML IV STA ×2 (16:07)
[2018-04-26] MEDS ORDERED: LEVOFLOXACIN 750MG-D5W PMX 750 MG in DEXTROSE/WATER 1 150ML.BAG IVPB STA (16:07)
[2018-04-26] MEDS ORDERED: SODIUM CHLORIDE 0.9% 500 ML 500 ML IV STA (16:07)
[2018-04-26] MEDS ORDERED: KETOROLAC 30 MG/ML 1 ML VIAL IVP STA (16:07)
[2018-04-26] MEDS ORDERED: PIPERACILLIN-TAZOBACTAM 3.375 GM in DEXTROSE/WATER 1 50ML.BAG IVPB STA (16:07)
[2018-04-26 16:18] LABS: Creatine Kinase MB 1.1 ng/mL (0.0-2.4); Troponin I <0.012 ng/mL (0.000-0.034)
[2018-04-26] MEDS ORDERED: PNEUMONIA PROTOCOL UTILIZED 1 EACH MISC PO PRN (16:30)
[2018-04-26] MEDS ORDERED: ASPIRIN 81 MG PEG/G-TUBE STA (18:11)
--- NOTE | 2018-04-26 18:14 | P.HPIM ---
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 Today he presents to the ER after being referred here from pulmonary clinic. Apparently the patient has been having productive cough with yellow-green sputum over the last 4 days with increasing shortness of breath. Today in particular the patient became lightheaded, dizzy and fell, positively denying head trauma. Patient noted severe left-sided chest pain Described as a ton of bricks sitting on his chest, patient denied any nausea vomiting or diaphoresis. The patient reportedly presented to Dr. Barron's clinic where he was noted to have low blood pressure and reported to have oxygen sats in the 70s. Previously the patient has had issues with noncompliance regarding his diet, his most recent video swallow study in December of this year showed no aspiration but did show significant pooling within the hypopharynx during swallowing, with severely impaired swallow in the pharyngeal phase, with only pleasure feeds recommended. The patient did report being compliant with his dietary recommendations. In the ER the patient had a comprehensive workup, EKG showed sinus tachycardia, cardiac enzymes are negative troponin less than 0.012, the patient was noted to be dyspneic with increased work of breathing is placed on supplemental oxygen. Chest x-ray showed a new multifocal right upper lobe and infrahilar opacity suspicious for multifocal pneumonia. Patient does have a white count of 14.6, serum lactate level I.6, serum magnesium 1.4. Blood pressure was 85/53 is given 2 L bolus and started on empiric IV antibiotics with Zosyn and Levaquin and recommended for admission. Review of Systems Pertinent positives per HPI, all other review of systems otherwise negative Past Medical History Past Medical History: Chest Pain / Angina, CVA/TIA, Diabetes Mellitus, Deep Vein Thrombosis (DVT), GERD/Reflux, Hyperlipidemia, Hypertension, Musculoskeletal Disorder, Pneumonia, Pulmonary Embolus (PE), Syncope Additional Past Medical History / Comment(s): CVA (06/2016), RIGHT SIDED WEAKNESS, HAS PEG TUBE WITH GLUCERNA 2.5 -TAKES 5 CANS DAILY. Purred foods. HX OF ASPIRATION PNEUMONIA, LUMBAR STENOSIS. , HX IBS. COLON POLYPS, CATARACTS, RIGHT SIDE OF BODY IS TEMPERATURE INTOLERANT. , NEUROPATHY OF HANDS & FEET, HAND TREMORS., BACK PAIN. History of Any Multi-Drug Resistant Organisms: MRSA Date of last positivie culture/infection: 03/26/18 MDRO Source:: [facility] Past Surgical History: Appendectomy, Cholecystectomy, Heart Catheterization, Orthopedic Surgery Additional Past Surgical History / Comment(s): EXPLORATORY LAPAROTOMY, FUSION L4 -L5, COLONOSCOPY, PEG tube. , REPAIR HIATAL HERNIA, CARPAL TUNNEL SURG.bronchoscopy Past Anesthesia/Blood Transfusion Reactions: No Reported Reaction Additional Past Anesthesia/Blood Transfusion Reaction / Comment(s): COUGHS WHEN HE LIES FLAT Past Psychological History: Anxiety, Depression Smoking Status: Never smoker Past Alcohol Use History: None Reported Past Drug Use History: None Reported - Past Family History Father History Unknown: Yes Family Medical History: No Reported History Mother Family Medical History: Cancer, Pulmonary Embolus Medications and Allergies Home Medications Medication Instructions Recorded Confirmed Type Metoprolol Tartrate [Lopressor] 12.5 mg PO DAILY 10/13/16 04/26/18 History Simvastatin [Zocor] 40 mg PO HS 10/13/16 04/26/18 History Omeprazole 40 mg PO BID 06/13/17 04/26/18 History Insulin Aspart [NovoLOG] See Protocol SQ AC-TID PRN 09/19/17 04/26/18 History Ranitidine HCl [Zantac] 300 mg PO DAILY 10/25/17 04/26/18 History EPINEPHrine (Auto Inject) [Epipen] 0.3 mg IM ONCE PRN 12/25/17 04/26/18 History Loratadine [Claritin] 10 mg PO DAILY 12/25/17 04/26/18 History Pioglitazone [Actos] 30 mg PO DAILY 03/28/18 04/26/18 History Albuterol Inhaler [Ventolin Hfa 1 - 2 puff INHALATION RT-Q6H PRN 04/26/18 History Inhaler] Amitriptyline HCl [Elavil] 25 mg PO BID 04/26/18 04/26/18 History Escitalopram [Lexapro] 20 mg PO DAILY 04/26/18 04/26/18 History Fluticasone Nasal Basehor [Flonase 1 - 2 spray EA NOSTRIL DAILY 04/26/18 04/26/18 History Nasal Basehor] Gabapentin 600 mg PO TID 04/26/18 04/26/18 History Insulin Glargine,Hum.rec.anlog 15 unit SQ HS 04/26/18 04/26/18 History [Basaglar Kwikpen U-100] Sulfamethox-Tmp 800-160Mg [Bactrim 1 tab PO Q12H 04/26/18 04/26/18 History DS 800-160 mg] busPIRone HCL 15 mg PO BID 04/26/18 04/26/18 History traZODone HCL [Desyrel] 100 mg PO HS 04/26/18 04/26/18 History Allergies Allergy/AdvReac Type Severity Reaction Status Date / Time venom-honey bee Allergy Anaphylaxis Verified 04/26/18 16:24 [bee venom (honey bee)] metformin AdvReac Diarrhea Verified 04/26/18 16:24 vancomycin AdvReac kidneys Verified 04/26/18 16:24 shut down Physical Exam Vitals: Vital Signs Temp Pulse Resp BP Pulse Ox 04/26/18 16:20 90 36 H 93/54 95 04/26/18 16:00 93/54 04/26/18 15:48 93 L 04/26/18 15:40 91 19 93/54 95 04/26/18 15:34 14 04/26/18 15:04 98.2 F 104 H 18 85/53 91 L Intake and Output 04/26/18 04/26/18 04/26/18 06:59 14:59 22:59 Other: Weight 81.647 kg Constitutional: No acute distress, conversant, pleasant Eyes: Anicteric sclerae, moist conjunctiva, no lid-lag, PERRLA ENMT: NC/AT,Oropharynx clear, no erythema, exudates Neck:Supple, FROM, no masses, or JVD, No carotid bruits; No thyromegaly Lungs: Diminished in the left lower bases, with rhonchi Clear to percussion, Normal respiratory effort, no accessory muscle use Cardiovascular: Heart regular in rate and rhythm, No murmurs, gallops, or rubs no peripheral edema Abdominal: Soft Nontender, nom distended, no guarding, no rebound or rigidity, Normoactive bowel sounds No hepatomegaly, No splenomegaly, No palpable mass No abdominal wall hernia noted Skin: Normal temperature, tone, texture, turgor, No induration No subcutaneous nodules, No rash, lesions, No ulcers Extremities:No digital cyanosis No clubbing, Pedal pulses intact and symmetrical Radial pulses intact and symmetrical Normal gait and station, No calf tenderness Psychiatric: Alert and oriented to person, place and time, Appropriate affect Intact judgement Neuro: Muscles Strength 5/5 in all 4 extremities, Sensation to light touch grossly present throughout, Cranial nerves II-XII grossly intact. No focal sensory deficits Results CBC & Chem 7: 04/26/18 15:30 04/26/18 15:30 Labs: Abnormal Lab Results - Last 24 Hours (Table) 04/26/18 04/26/18 04/26/18 Range/Units 15:30 15:30 15:30 WBC 14.1 H (3.8-10.6) k/uL RBC 4.25 L (4.30-5.90) m/uL Neutrophils # 12.2 H (1.3-7.7) k/uL Lymphocytes # 0.9 L (1.0-4.8) k/uL Carbon Dioxide 32 H (22-30) mmol/L Glucose 188 H (74-99) mg/dL Magnesium 1.4 L (1.6-2.3) mg/dL ALT 12 L (21-72) U/L Total Creatine Kinase 39 L (55-170) U/L Albumin 3.3 L (3.5-5.0) g/dL Lipase 22 L (23-300) U/L Assessment and Plan (1) Sepsis Current Visit: Yes Status: Acute Code(s): A41.9 - SEPSIS, UNSPECIFIED ORGANISM SNOMED Code(s): 27239365 (2) Acute respiratory failure with hypoxia Current Visit: Yes Status: Acute Code(s): J96.01 - ACUTE RESPIRATORY FAILURE WITH HYPOXIA SNOMED Code(s): 59279490 (3) Multifocal pneumonia Current Visit: Yes Status: Acute Code(s): J18.9 - PNEUMONIA, UNSPECIFIED ORGANISM SNOMED Code(s): 007783394 (4) Atypical chest pain Current Visit: Yes Status: Acute Code(s): R07.89 - OTHER CHEST PAIN SNOMED Code(s): 041934109 (5) Dysphagia Current Visit: No Status: Chronic Code(s): R13.10 - DYSPHAGIA, UNSPECIFIED SNOMED Code(s): 73061888 (6) Hypomagnesemia Current Visit: No Status: Resolved Code(s): E83.42 - HYPOMAGNESEMIA SNOMED Code(s): 653705043 (7) Left shoulder pain Current Visit: Yes Status: Acute Code(s): M25.512 - PAIN IN LEFT SHOULDER SNOMED Code(s): 68553607 (8) Type 2 diabetes mellitus with hyperglycemia Current Visit: No Status: Acute Code(s): E11.65 - TYPE 2 DIABETES MELLITUS WITH HYPERGLYCEMIA SNOMED Code(s): 985006036694683 Plan: The patient is admitted anticipate a greater than 2 midnight stay with sepsis secondary to multifocal pneumonia, suspected to be due from chronic aspiration due to his history of brainstem CVA with resultant ongoing chronic dysphagia, patient has normal saturations and his blood pressures responded to IV fluid resuscitation, we'll continue IV fluids continue empiric IV antibiotics with Levaquin and Zosyn, blood cultures/ sputum are pending we'll check a urinalysis , with Legionella and pneumonia. Continue supplemental oxygen with scheduled bronchial dilator DuoNeb breathing treatments. We'll also replete the patient' s magnesium and recheck tomorrow. We'll plan to consult pulmonary for further recommendations. Patient is noted to have atypical chest pain likely from symptomatic hypotension from sepsis, EKG is negative for any acute ischemia, initial set of troponins are negative will continue to trend sequentially. We' ll order aspirin by his PEG, and resume home statin therapy. Home dose of metoprolol was held secondary to hypotension. We'll order a left shoulder x- ray to further address his left shoulder pain. We'll plan to consult speech therapy for further recommendations. Patient is resumed on his insulin regimen at home with plans for Accu-Chek with correctional scale insulin coverage. CODE STATUS full code discussed the care with the patient prophylaxis : Lovenox and SCDs/PPI therapy
--- NOTE | 2018-04-26 19:38 | XR ---
EXAMINATION TYPE: XR shoulder complete LT DATE OF EXAM: 04/26/2018 COMPARISON: NONE HISTORY: Shoulder pain TECHNIQUE: 3 views FINDINGS: I see no fracture nor dislocation. Glenohumeral joint is intact. There is mild spurring at the AC joint. IMPRESSION: Negative left shoulder exam.
[2018-04-26] MEDS: MAGNESIUM SULFATE-D5W PMX 1 GM in DEXTROSE/WATER 1 100ML.BAG IVPB SCH ×3 (20:31→23:44)
[2018-04-26 20:40] LABS: Appearance,Urine Cloudy (Clear); Bilirubin,Urine Negative (Negative); Blood,Urine Negative (Negative); Color,Urine Yellow; Glucose,Urine (UA) 4+ (Negative); Hyaline Casts,Urine 19 /lpf (0-2); Ketones,Urine Negative (Negative); Leukocyte Esterase,Urine Trace (Negative); Mucus,Urine Few /hpf; Nitrite,Urine Negative (Negative); Protein,Urine 1+ (Negative); RBC,Urine 8 /hpf (0-5); Specific Gravity,Urine 1.023 (1.001-1.035); Squamous Epithelial Cell,Urine <1 /hpf (0-4); WBC,Urine 15 /hpf (0-5)
[2018-04-26] MEDS: IPRATROPIUM-ALBUTEROL 3 ML NEB INHALATION SCH (20:54)
[2018-04-26] MEDS ORDERED: NON-FORMULARY DRUG (Omeprazole [Omeprazole] 40 MG) PO SCH (21:00)
[2018-04-26] MEDS ORDERED: NON-FORMULARY DRUG (Simvastatin [Zocor] 40 MG) PO SCH (21:00)
[2018-04-26] MEDS ORDERED: NON-FORMULARY DRUG (Buspirone Hcl [Buspirone Hcl] 15 MG) PO SCH (21:00)
[2018-04-26] MEDS ORDERED: AMITRIPTYLINE HCL 25 MG TAB PO SCH (21:00)
[2018-04-26] MEDS ORDERED: NON-FORMULARY DRUG (Omeprazole [Omeprazole] 40 MG) PEG/G-TUBE SCH (21:00)
[2018-04-26] MEDS ORDERED: traZODone HCL 100 MG TAB PO SCH (21:00)
[2018-04-26 21:43] LABS: Glucose,Whole Blood 120 mg/dL (75-99)
[2018-04-26] MEDS: MORPHINE SULFATE 4 MG/ML SYRINGE IVP PRN (21:52)
[2018-04-26] MEDS: SODIUM CHLORIDE 0.9% 1,000 ML IV SCH (21:55)
[2018-04-26] MEDS: INSULIN DETEMIR 100 UNIT/ML 10 ML VIAL SQ SCH (21:55)
[2018-04-26] MEDS: INSULIN ASPART 100 UNIT/ML 1 ML 10 ML VIAL SQ SCH (21:56)
[2018-04-26] MEDS: AMITRIPTYLINE HCL 25 MG TAB PEG/G-TUBE SCH (21:57)
[2018-04-26] MEDS: GABAPENTIN 300 MG CAP PO SCH (22:13)
[2018-04-26] MEDS: busPIRone HCl 10 MG TAB PEG/G-TUBE SCH (22:13)
[2018-04-26] MEDS: ATORVASTATIN 20 MG TAB PEG/G-TUBE SCH (22:13)
[2018-04-26] MEDS: traZODone HCL 100 MG TAB PEG/G-TUBE SCH (22:13)
[2018-04-26] MEDS: PIPERACILLIN-TAZOBACTAM 3.375 GM in DEXTROSE/WATER 1 50ML.BAG IVPB SCH (23:46)
[2018-04-27] MEDS: MORPHINE SULFATE 4 MG/ML SYRINGE IVP PRN ×2 (02:03→06:15)
[2018-04-27 04:04] LABS: Cholesterol 85 mg/dL (<200); HDL Cholesterol 44 mg/dL (40-60); LDL Cholesterol,Calculated 25 mg/dL (0-99); Triglycerides 78 mg/dL (<150)
[2018-04-27] MEDS: SODIUM CHLORIDE 0.9% 1,000 ML IV SCH ×3 (04:17→22:21)
[2018-04-27 06:11] LABS: Glucose,Whole Blood 126 mg/dL (75-99)
[2018-04-27] MEDS: INSULIN ASPART 100 UNIT/ML 1 ML 10 ML VIAL SQ SCH ×4 (06:18→20:55)
--- NOTE | 2018-04-27 06:39 | XR ---
EXAMINATION TYPE: XR chest 2V DATE OF EXAM: 04/27/2018 HISTORY: pneumonia. REFERENCE: Previous study dated 04/26/2018. FINDINGS: There is bilateral airspace disease. This has improved slightly from previous. The heart is not enlarged. No definite pleural fluid is seen. IMPRESSION: SLIGHT IMPROVED AERATION OF BOTH LUNGS.
[2018-04-27] MEDS ORDERED: ESCITALOPRAM 20 MG TAB PO SCH (09:00)
[2018-04-27] MEDS ORDERED: ACETAMINOPHEN TAB 325 MG TAB PO PRN (09:18)
--- NOTE | 2018-04-27 09:20 | P.PN ---
Subjective Progress Note Date: 04/27/18 Patient complaining of left shoulder pain, wanting more morphine, discussed that this is likely muscle skeletal as there is no fracture seen on shoulder x- ray. Advised that I was going to discontinue morphine and attempt to use Tylenol with heating pads. Reporting his shortness of breath is slightly improved afebrile overnight no acute events, Objective - Vital Signs Vital signs: Vital Signs Temp 98.9 F 04/27/18 04:00 Pulse 78 04/27/18 04:00 Resp 20 04/27/18 04:00 BP 114/76 04/27/18 04:00 Pulse Ox 95 04/27/18 04:00 Intake & Output 04/26/18 04/27/18 04/27/18 18:59 06:59 18:59 Intake Total 2189 Output Total 500 Balance 1689 Weight 81.647 kg Intake: Intake, IV Titration 194 Amount Magnesium Sulfate-D5w Pmx 300 1 gm In Dextrose/Water 1 100ml.bag @ 100 mls/hr IVPB Q1H [facility] Rx#: [id number] Piperacillin-Tazobactam 3 50 .375 gm In Dextrose/Water 1 50ml.bag @ 12.5 mls/hr IVPB Q8HR [facility] Rx#: [id number] Sodium Chloride 0.9% 1, 600 000 ml @ 100 mls/hr IV . Q10H [facility] Rx#:[id number] Sodium Chloride 0.9% 500 999 ml 500 ml @ 999 mls/hr IV .Q31M [facility] Rx#:[id number] Oral 240 Output: Urine 500 Other: # Voids 2 - Exam Constitutional: No acute distress, conversant, pleasant Eyes: Anicteric sclerae, moist conjunctiva, no lid-lag, PERRLA ENMT: NC/AT,Oropharynx clear, no erythema, exudates Neck:Supple, FROM, no masses, or JVD, No carotid bruits; No thyromegaly Lungs: Diminished in the left lower bases, with rhonchi Clear to percussion, Normal respiratory effort, no accessory muscle use Cardiovascular: Heart regular in rate and rhythm, No murmurs, gallops, or rubs no peripheral edema Abdominal: Soft Nontender, nom distended, no guarding, no rebound or rigidity, Normoactive bowel sounds No hepatomegaly, No splenomegaly, No palpable mass No abdominal wall hernia noted Skin: Normal temperature, tone, texture, turgor, No induration No subcutaneous nodules, No rash, lesions, No ulcers Extremities:No digital cyanosis No clubbing, Pedal pulses intact and symmetrical Radial pulses intact and symmetrical Normal gait and station, No calf tenderness Psychiatric: Alert and oriented to person, place and time, Appropriate affect Intact judgement Neuro: Muscles Strength 5/5 in all 4 extremities, Sensation to light touch grossly present throughout, Cranial nerves II-XII grossly intact. No focal sensory deficits - Labs CBC & Chem 7: 04/26/18 15:30 04/26/18 15:30 Labs: Abnormal Lab Results - Last 24 Hours (Table) 04/26/18 04/26/18 04/26/18 Range/Units 15:30 15:30 15:30 WBC 14.1 H (3.8-10.6) k/uL RBC 4.25 L (4.30-5.90) m/uL Neutrophils # 12.2 H (1.3-7.7) k/uL Lymphocytes # 0.9 L (1.0-4.8) k/uL Carbon Dioxide 32 H (22-30) mmol/L Glucose 188 H (74-99) mg/dL POC Glucose (mg/dL) (75-99) mg/dL Magnesium 1.4 L (1.6-2.3) mg/dL ALT 12 L (21-72) U/L Total Creatine Kinase 39 L (55-170) U/L Albumin 3.3 L (3.5-5.0) g/dL Lipase 22 L (23-300) U/L Urine Protein (Negative) Urine Glucose (UA) (Negative) Ur Leukocyte Esterase (Negative) Urine RBC (0-5) /hpf Urine WBC (0-5) /hpf Hyaline Casts (0-2) /lpf Urine Mucus (None) /hpf 04/26/18 04/26/18 04/27/18 Range/Units 20:00 21:42 06:10 WBC (3.8-10.6) k/uL RBC (4.30-5.90) m/uL Neutrophils # (1.3-7.7) k/uL Lymphocytes # (1.0-4.8) k/uL Carbon Dioxide (22-30) mmol/L Glucose (74-99) mg/dL POC Glucose (mg/dL) 120 H 126 H (75-99) mg/dL Magnesium (1.6-2.3) mg/dL ALT (21-72) U/L Total Creatine Kinase (55-170) U/L Albumin (3.5-5.0) g/dL Lipase (23-300) U/L Urine Protein 1+ H (Negative) Urine Glucose (UA) 4+ H (Negative) Ur Leukocyte Esterase Trace H (Negative) Urine RBC 8 H (0-5) /hpf Urine WBC 15 H (0-5) /hpf Hyaline Casts 19 H (0-2) /lpf Urine Mucus Few H (None) /hpf Assessment and Plan (1) Sepsis Narrative/Plan: * Afebrile overnight morning CBC pending * Continue with current IV antibiotic regimen with Zosyn and Levaquin * Secondary to multifocal pneumonia likely aspiration induced due to chronic dysphagia * Patient hemodynamically stable blood pressure much improved continue IV fluids at normal saline 100 mL an hour Current Visit: Yes Status: Acute Code(s): A41.9 - SEPSIS, UNSPECIFIED ORGANISM SNOMED Code(s): 21345424 (2) Acute respiratory failure with hypoxia Narrative/Plan: * Secondary to multifocal pneumonia likely from chronic dysphagia and recurrent aspiration * Continue with supplemental oxygen, with when necessary and scheduled bronchodilator DuoNeb breathing treatments * Pulmonary consulted for further recommendations Current Visit: Yes Status: Acute Code(s): J96.01 - ACUTE RESPIRATORY FAILURE WITH HYPOXIA SNOMED Code(s): 96704234 (3) Multifocal pneumonia Narrative/Plan: * Repeat chest x-ray shows slightly improved aeration of both lungs * Continue antibiotic regimen as above * Possibly related to aspiration Current Visit: Yes Status: Acute Code(s): J18.9 - PNEUMONIA, UNSPECIFIED ORGANISM SNOMED Code(s): 592876150 (4) Atypical chest pain Narrative/Plan: * Likely secondary to hypotension from sepsis * EKG with no suggestion of any acute ischemia troponins are negative 2 Current Visit: Yes Status: Acute Code(s): R07.89 - OTHER CHEST PAIN SNOMED Code(s): 901377050 (5) Dysphagia Narrative/Plan: * Speech consult pending, continue with PEG feedings * Continue Glucerna tube feeds Current Visit: No Status: Chronic Code(s): R13.10 - DYSPHAGIA, UNSPECIFIED SNOMED Code(s): 88715059 (6) Hypomagnesemia Narrative/Plan: * Magnesium level up to 2.2 from 1.4 after repletion Current Visit: No Status: Resolved Code(s): E83.42 - HYPOMAGNESEMIA SNOMED Code(s): 285046838 (7) Left shoulder pain Narrative/Plan: * X-ray negative for any acute fractures * We'll apply heating pad and start Tylenol Current Visit: Yes Status: Acute Code(s): M25.512 - PAIN IN LEFT SHOULDER SNOMED Code(s): 30584064 (8) Type 2 diabetes mellitus with hyperglycemia Narrative/Plan: * Blood sugar stable controlled continue Accu-Cheks with correctional scale coverage as needed * A1c pending * Continue with Glucerna tube feeds Current Visit: No Status: Acute Code(s): E11.65 - TYPE 2 DIABETES MELLITUS WITH HYPERGLYCEMIA SNOMED Code(s): 890598092820928 Plan: Continue current therapy Anticipated discharge in 2 days
[2018-04-27] MEDS: ENOXAPARIN 40 MG/0.4 ML SYRINGE SQ SCH (09:34)
[2018-04-27] MEDS: ASPIRIN 325 MG TAB PEG/G-TUBE SCH (09:35)
[2018-04-27] MEDS: PANTOPRAZOLE 40 MG/10 ML VIAL IV SCH (09:35)
[2018-04-27] MEDS: LORATADINE 10 MG TAB PO SCH (09:35)
[2018-04-27] MEDS: ESCITALOPRAM 20 MG TAB PEG/G-TUBE SCH (09:35)
[2018-04-27] MEDS: PIPERACILLIN-TAZOBACTAM 3.375 GM in DEXTROSE/WATER 1 50ML.BAG IVPB SCH ×3 (09:36→22:45)
[2018-04-27 09:39] LABS: Basophils % (A) 0 %; Eosinophils # (A) 0.1 k/uL (0-0.7); Eosinophils % (A) 2 %; HCT 33.5 % (39.0-53.0); HGB 10.6 gm/dL (13.0-17.5); Hypochromasia Slight; Lymphocytes # (A) 1.1 k/uL (1.0-4.8); Lymphocytes % (A) 16 %; MCH 30.8 pg (25.0-35.0); MCHC 31.5 g/dL (31.0-37.0); MCV 97.9 fL (80.0-100.0); Mean Platelet Volume 7.9; Monocytes # (A) 0.4 k/uL (0-1.0); Monocytes % (A) 6 %; Neutrophils % (A) 74 %; Platelet Count 191 k/uL (150-450); RBC 3.42 m/uL (4.30-5.90); RDW 13.9 % (11.5-15.5); WBC 6.8 k/uL (3.8-10.6)
[2018-04-27] MEDS: IPRATROPIUM-ALBUTEROL 3 ML NEB INHALATION SCH ×4 (09:40→19:50)
[2018-04-27 09:45] LABS: Anion Gap 4 mmol/L; Blood Urea Nitrogen 13 mg/dL (9-20); Calcium 7.9 mg/dL (8.4-10.2); Carbon Dioxide 31 mmol/L (22-30); Chloride 102 mmol/L (98-107); Glucose 130 mg/dL (74-99); Potassium 3.8 mmol/L (3.5-5.1); Sodium 137 mmol/L (137-145)
[2018-04-27] MEDS: busPIRone HCl 10 MG TAB PEG/G-TUBE SCH ×2 (09:45→21:20)
[2018-04-27] MEDS: GABAPENTIN 300 MG CAP PO SCH ×3 (09:46→21:19)
[2018-04-27] MEDS ORDERED: KETOROLAC 30 MG/ML 1 ML VIAL IM STA (10:14)
[2018-04-27] MEDS: AMITRIPTYLINE HCL 25 MG TAB PEG/G-TUBE SCH ×2 (10:50→21:22)
[2018-04-27] MEDS ORDERED: VANCOMYCIN IV PER PHARMACY 1 EACH MISC MISCELLANE PRN (11:35)
[2018-04-27 11:56] LABS: Glucose,Whole Blood 123 mg/dL (75-99)
--- NOTE | 2018-04-27 12:58 | P.CNPUL ---
History of Present Illness Consult date: 04/27/18 Requesting physician: Kirk Reardon Reason for consult: dyspnea, abnormal CXR/CT (Multilobar pneumonia) Chief complaint: Weakness, disorientation, dyspnea History of present illness: This is a very pleasant 53-year-old gentleman who follows with Dr. Marsh as his primary care physician. 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 He also has had evidence of aspiration pneumonias and he follows with Dr. Barron in our office. He had most recently undergone bronchoscopy with BAL on 03/26/2018 and was found to have Klebsiella pneumoniae and methicillin resistant Staphylococcus aureus. He had been treated appropriately and recovered. Yesterday he presented to our office with complaints of increasing shortness of breath, loose nonproductive cough, weakness and altered mental status. He had stated earlier yesterday morning he went outside to go to a friend's house and fell into his front lawn and could not get up for 20 minutes. He was hypotensive in the office and was referred here to the emergency room for evaluation. His chest x-ray revealed new multifocal right upper lung and infrahilar opacity suspicious for multifocal pneumonia. There is also increasing confluence of the lingular opacity also most likely representing pneumonia. He was admitted for the same. He is seen today in consultation on the selective care unit. He is currently awake and alert. Oriented 3. Able to recall the events of yesterday. He is still feeling quite weak and short of breath. He has a productive cough of thick yellowish-brown sputum. He is currently maintaining O2 saturations in the low 90s on 4 L/m per nasal cannula. He's been afebrile. Hemodynamically stable. He did not require any pressor support. White count 6.8. Hemoglobin 10.6. Creatinine 0.69. Troponins were negative 2. EKG showed sinus rhythm without acute ST and T wave abnormalities. Of and ongoing complaints of left shoulder pain. X-ray showed no fracture. He has been initiated on DuoNeb inhalations, Zosyn and Levaquin. Review of Systems Constitutional: Reports fatigue, Reports weakness Eyes: denies blurred vision, denies decreased vision Ears: deny: decreased hearing Ears, nose, mouth and throat: Denies headache, Denies sore throat Cardiovascular: Reports dyspnea on exertion, Reports shortness of breath Respiratory: Reports cough, Reports cough with sputum, Reports dyspnea, Reports respiratory infections Gastrointestinal: Denies abdominal pain, Denies diarrhea, Denies nausea, Denies vomiting Genitourinary: Reports as per HPI Musculoskeletal: Reports frequent falls, Reports gait dysfunction, Reports limitation of motion, Reports shooting arm pain Musculoskeletal: left: shoulder pain (X-ray reveals no fracture) Integumentary: Denies pruritus, Denies rash Neurological: Reports confusion, Reports gait dysfunction, Reports weakness Psychiatric: Reports anxiety Endocrine: Denies fatigue, Denies weight change Hematologic/Lymphatic: Reports as per HPI Allergic/Immunologic: Reports as per HPI Past Medical History Past Medical History: Chest Pain / Angina, CVA/TIA, Diabetes Mellitus, Deep Vein Thrombosis (DVT), GERD/Reflux, Hyperlipidemia, Hypertension, Musculoskeletal Disorder, Pneumonia, Pulmonary Embolus (PE), Syncope Additional Past Medical History / Comment(s): CVA (06/2016), RIGHT SIDED WEAKNESS, HAS PEG TUBE WITH GLUCERNA 2.5 -TAKES 5 CANS DAILY. Purred foods. HX OF ASPIRATION PNEUMONIA, LUMBAR STENOSIS. , HX IBS. COLON POLYPS, CATARACTS, RIGHT SIDE OF BODY IS TEMPERATURE INTOLERANT. , NEUROPATHY OF HANDS & FEET, HAND TREMORS., BACK PAIN. History of Any Multi-Drug Resistant Organisms: MRSA Date of last positivie culture/infection: 03/26/18 MDRO Source:: [facility] Past Surgical History: Appendectomy, Cholecystectomy, Heart Catheterization, Orthopedic Surgery Additional Past Surgical History / Comment(s): EXPLORATORY LAPAROTOMY, FUSION L4 -L5, COLONOSCOPY, PEG tube. , REPAIR HIATAL HERNIA, CARPAL TUNNEL SURG.bronchoscopy Past Anesthesia/Blood Transfusion Reactions: No Reported Reaction Additional Past Anesthesia/Blood Transfusion Reaction / Comment(s): COUGHS WHEN HE LIES FLAT Past Psychological History: Anxiety, Depression Smoking Status: Never smoker Past Alcohol Use History: None Reported Past Drug Use History: None Reported - Past Family History Father History Unknown: Yes Family Medical History: No Reported History Mother Family Medical History: Cancer, Pulmonary Embolus Medications and Allergies Home Medications Medication Instructions Recorded Confirmed Type Metoprolol Tartrate [Lopressor] 12.5 mg PO DAILY 10/13/16 04/26/18 History Simvastatin [Zocor] 40 mg PO HS 10/13/16 04/26/18 History Omeprazole 40 mg PO BID 06/13/17 04/26/18 History Insulin Aspart [NovoLOG] See Protocol SQ AC-TID PRN 09/19/17 04/26/18 History Ranitidine HCl [Zantac] 300 mg PO DAILY 10/25/17 04/26/18 History EPINEPHrine (Auto Inject) [Epipen] 0.3 mg IM ONCE PRN 12/25/17 04/26/18 History Loratadine [Claritin] 10 mg PO DAILY 12/25/17 04/26/18 History Pioglitazone [Actos] 30 mg PO DAILY 03/28/18 04/26/18 History Albuterol Inhaler [Ventolin Hfa 1 - 2 puff INHALATION RT-Q6H PRN 04/26/18 History Inhaler] Amitriptyline HCl [Elavil] 25 mg PO BID 04/26/18 04/26/18 History Escitalopram [Lexapro] 20 mg PO DAILY 04/26/18 04/26/18 History Fluticasone Nasal [place] [Flonase 1 - 2 spray EA NOSTRIL DAILY 04/26/18 04/26/18 History Nasal [place]] Gabapentin 600 mg PO TID 04/26/18 04/26/18 History Insulin Glargine,Hum.rec.anlog 15 unit SQ HS 04/26/18 04/26/18 History [Basaglar Kwikpen U-100] Sulfamethox-Tmp 800-160Mg [Bactrim 1 tab PO Q12H 04/26/18 04/26/18 History DS 800-160 mg] busPIRone HCL 15 mg PO BID 04/26/18 04/26/18 History traZODone HCL [Desyrel] 100 mg PO HS 04/26/18 04/26/18 History Allergies Allergy/AdvReac Type Severity Reaction Status Date / Time venom-honey bee Allergy Anaphylaxis Verified 04/26/18 16:24 [bee venom (honey bee)] metformin AdvReac Diarrhea Verified 04/26/18 16:24 vancomycin AdvReac kidneys Verified 04/26/18 16:24 shut down Physical Exam Vitals: Vital Signs Temp Pulse Pulse Resp BP BP Pulse Ox 04/27/18 12:07 97.7 F 88 20 102/57 93 L 04/27/18 12:04 92 04/27/18 11:51 90 04/27/18 08:00 96.8 F L 92 20 128/78 94 L 04/27/18 04:00 98.9 F 78 20 114/76 95 04/26/18 23:25 98.0 F 77 18 107/73 94 L 04/26/18 23:16 86 18 04/26/18 21:22 97.1 F L 74 18 101/71 98 04/26/18 21:00 91/56 96 04/26/18 20:00 115/76 04/26/18 19:40 78 41 H 100/58 92 L 04/26/18 19:20 100/58 04/26/18 19:00 82 11 L 104/67 95 04/26/18 18:46 98.4 F 86 22 101/66 92 L 04/26/18 18:40 83 38 H 107/65 92 L 04/26/18 18:20 86 26 H 114/69 93 L 04/26/18 18:00 85 26 H 96/57 95 04/26/18 17:40 85 34 H 105/62 94 L 04/26/18 17:20 86 30 H 94 L 04/26/18 17:00 85 37 H 111/73 95 04/26/18 16:40 85 26 H 97/54 96 04/26/18 16:31 94 L 04/26/18 16:20 90 36 H 93/54 95 04/26/18 16:00 93/54 04/26/18 15:48 93 L 04/26/18 15:40 91 19 93/54 95 04/26/18 15:34 14 04/26/18 15:04 98.2 F 104 H 18 85/53 91 L Intake and Output 04/26/18 04/27/18 04/27/18 22:59 06:59 14:59 Intake Total 2189 Output Total 500 Balance 1689 Intake: Intake, IV Titration 194 Amount Magnesium Sulfate-D5w Pmx 300 1 gm In Dextrose/Water 1 100ml.bag @ 100 mls/hr IVPB Q1H [facility] Rx#: [id number] Piperacillin-Tazobactam 3 50 .375 gm In Dextrose/Water 1 50ml.bag @ 12.5 mls/hr IVPB Q8HR [facility] Rx#: [id number] Sodium Chloride 0.9% 1, 600 000 ml @ 100 mls/hr IV . Q10H [facility] Rx#:[id number] Sodium Chloride 0.9% 500 999 ml 500 ml @ 999 mls/hr IV .Q31M [facility] Rx#:[id number] Oral 240 Output: Urine 500 Other: # Voids 2 1 Weight 81.647 kg - Constitutional General appearance: average body habitus, disheveled, mild distress - EENT Eyes: EOMI, PERRLA ENT: hearing grossly normal Ears: bilateral: normal - Neck Neck: normal ROM Carotids: bilateral: upstroke normal Thyroid: bilateral: normal size - Respiratory Respiratory: bilateral: rhonchi - Cardiovascular Rhythm: regular Heart sounds: normal: S1, S2 - Gastrointestinal General gastrointestinal: normal bowel sounds - Integumentary Integumentary: normal turgor - Neurologic Neurologic: CNII-XII intact - Musculoskeletal Musculoskeletal: generalized weakness - Psychiatric Psychiatric: A&O x's 3, appropriate affect, intact judgment & insight Results - Laboratory Findings CBC and BMP: 04/27/18 05:53 04/27/18 05:53 PT/INR, D-dimer PT 10.1 sec (9.0-12.0) 04/26/18 15:30 INR 1.0 (<1.2) 04/26/18 15:30 D-Dimer 0.52 mg/L FEU (<0.60) 04/26/18 15:30 Abnormal lab findings: Abnormal Labs 04/26/18 04/26/18 04/26/18 15:30 15:30 15:30 WBC 14.1 H RBC 4.25 L Hgb Hct Neutrophils # 12.2 H Lymphocytes # 0.9 L Carbon Dioxide 32 H Glucose 188 H POC Glucose (mg/dL) Calcium Magnesium 1.4 L ALT 12 L Total Creatine Kinase 39 L Albumin 3.3 L Lipase 22 L Urine Protein Urine Glucose (UA) Ur Leukocyte Esterase Urine RBC Urine WBC Hyaline Casts Urine Mucus 04/26/18 04/26/18 04/27/18 20:00 21:42 05:53 WBC RBC 3.42 L Hgb 10.6 L Hct 33.5 L Neutrophils # Lymphocytes # Carbon Dioxide Glucose POC Glucose (mg/dL) 120 H Calcium Magnesium ALT Total Creatine Kinase Albumin Lipase Urine Protein 1+ H Urine Glucose (UA) 4+ H Ur Leukocyte Esterase Trace H Urine RBC 8 H Urine WBC 15 H Hyaline Casts 19 H Urine Mucus Few H 04/27/18 04/27/18 04/27/18 05:53 06:10 11:50 WBC RBC Hgb Hct Neutrophils # Lymphocytes # Carbon Dioxide 31 H Glucose 130 H POC Glucose (mg/dL) 126 H 123 H Calcium 7.9 L Magnesium ALT Total Creatine Kinase Albumin Lipase Urine Protein Urine Glucose (UA) Ur Leukocyte Esterase Urine RBC Urine WBC Hyaline Casts Urine Mucus - Diagnostic Findings Chest x-ray: image reviewed Assessment and Plan Assessment: Impression: #1 Acute hypoxic respiratory failure secondary to multifocal bilateral pneumonia. #2 Recent aspiration pneumonia and bronchial wash including Klebsiella pneumoniae and methicillin resistant Staphylococcus aureus, 03/26/2018. #3 Altered mental status secondary to above. #4 Generalized weakness with fall secondary to above. #5 History of left brain stem stroke in June 2016 with residual right facial weakness in addition to weakness in the right upper and right lower extremity with impaired swallow. #6 Dysphagia secondary to above with PEG tube placement. #7 History of left lower extremity DVT and pulmonary embolism completed anticoagulation treatment. #8 Hypertension. #9 Hyperlipidemia. #10 Diabetes mellitus, type II. Plan: The patient was seen and evaluated by Dr. Ruvalcaba. Chest x-ray and labs were reviewed. We will change his Levaquin for vancomycin and continue Zosyn. Continue DuoNeb inhalations. He is on Lovenox for DVT prophylaxis. We will continue to follow and make further recommendations based on his clinical status. I, the cosigning physician, performed a history & physical examination of the patient. Lungs sounds with bilateral scattered rhonchi. Maintaining good O2 saturations in the 90s on 4 L/m per nasal. I discussed the assessment and plan of care with my nurse practitioner, Makayla Sharp. I attest to the above note as dictated by her. Time with Patient: Greater than 30
[2018-04-27] MEDS: VANCOMYCIN 1,500 MG in SODIUM CHLORIDE 0.9% 250 ML IVPB SCH (15:12)
[2018-04-27 16:44] LABS: Glucose,Whole Blood 121 mg/dL (75-99)
[2018-04-27] MEDS ORDERED: LEVOFLOXACIN 750MG-D5W PMX 750 MG in DEXTROSE/WATER 1 150ML.BAG IVPB SCH (17:00)
[2018-04-27 20:11] LABS: Glucose,Whole Blood 117 mg/dL (75-99)
[2018-04-27] MEDS: INSULIN DETEMIR 100 UNIT/ML 10 ML VIAL SQ SCH (20:55)
[2018-04-27] MEDS: ATORVASTATIN 20 MG TAB PEG/G-TUBE SCH (21:20)
[2018-04-27] MEDS: traZODone HCL 100 MG TAB PEG/G-TUBE SCH (21:20)
[2018-04-28] MEDS: VANCOMYCIN 1,500 MG in SODIUM CHLORIDE 0.9% 250 ML IVPB SCH ×2 (01:15→13:48)
[2018-04-28] MEDS ORDERED: oxyCODONE-APAP 5-325MG 1 EACH TAB PO STA (02:20)
[2018-04-28 06:46] LABS: Glucose,Whole Blood 159 mg/dL (75-99)
[2018-04-28] MEDS: INSULIN ASPART 100 UNIT/ML 1 ML 10 ML VIAL SQ SCH ×4 (06:46→21:18)
[2018-04-28 07:03] LABS: Basophils % (A) 0 %; Eosinophils # (A) 0.1 k/uL (0-0.7); Eosinophils % (A) 1 %; HCT 34.6 % (39.0-53.0); HGB 10.8 gm/dL (13.0-17.5); Hypochromasia Slight; Lymphocytes # (A) 0.6 k/uL (1.0-4.8); Lymphocytes % (A) 9 %; MCH 30.4 pg (25.0-35.0); MCHC 31.2 g/dL (31.0-37.0); MCV 97.5 fL (80.0-100.0); Mean Platelet Volume 7.2; Monocytes # (A) 0.3 k/uL (0-1.0); Monocytes % (A) 5 %; Neutrophils # (A) 5.1 k/uL (1.3-7.7); Neutrophils % (A) 83 %; Platelet Count 203 k/uL (150-450); RBC 3.55 m/uL (4.30-5.90); RDW 13.8 % (11.5-15.5); WBC 6.2 k/uL (3.8-10.6)
[2018-04-28 07:23] LABS: Anion Gap 4 mmol/L; Blood Urea Nitrogen 9 mg/dL (9-20); Calcium 8.3 mg/dL (8.4-10.2); Carbon Dioxide 33 mmol/L (22-30); Chloride 101 mmol/L (98-107); Glucose 170 mg/dL (74-99); Magnesium 1.6 mg/dL (1.6-2.3); Potassium 4.2 mmol/L (3.5-5.1); Sodium 138 mmol/L (137-145)
[2018-04-28] MEDS: IPRATROPIUM-ALBUTEROL 3 ML NEB INHALATION SCH ×4 (07:55→19:07)
[2018-04-28] MEDS: ASPIRIN 325 MG TAB PEG/G-TUBE SCH (09:11)
[2018-04-28] MEDS: ENOXAPARIN 40 MG/0.4 ML SYRINGE SQ SCH (09:11)
[2018-04-28] MEDS: PIPERACILLIN-TAZOBACTAM 3.375 GM in DEXTROSE/WATER 1 50ML.BAG IVPB SCH ×3 (09:11→22:53)
[2018-04-28] MEDS: PANTOPRAZOLE 40 MG/10 ML VIAL IV SCH (09:12)
[2018-04-28] MEDS: busPIRone HCl 10 MG TAB PEG/G-TUBE SCH ×2 (09:12→21:18)
[2018-04-28] MEDS: AMITRIPTYLINE HCL 25 MG TAB PEG/G-TUBE SCH ×2 (09:12→21:18)
[2018-04-28] MEDS: GABAPENTIN 300 MG CAP PO SCH ×3 (09:12→21:19)
[2018-04-28] MEDS: ESCITALOPRAM 20 MG TAB PEG/G-TUBE SCH (09:12)
[2018-04-28] MEDS: LORATADINE 10 MG TAB PO SCH (09:17)
--- NOTE | 2018-04-28 09:55 | P.PN ---
Subjective Progress Note Date: 04/28/18 Patient complaining of left shoulder pain, wanting more pain medication discussed that this is likely muscle skeletal as there is no fracture seen on shoulder x-ray. Patient given Percocet overnight for shoulder pain. Increasing oxygen to 5 L overnight, patient more tachycardic today, afebrile leukocytosis with copious amounts of sputum production Objective - Vital Signs Vital signs: Vital Signs Temp 98 F 04/28/18 04:00 Pulse 100 04/28/18 08:08 Resp 20 04/28/18 04:00 BP 138/66 04/28/18 04:00 Pulse Ox 94 L 04/28/18 07:56 Intake & Output 04/27/18 04/28/18 04/28/18 18:59 06:59 18:59 Intake Total 850 1970 Output Total 400 Balance 850 1570 Intake: Intake, IV Titration 850 1250 Amount Piperacillin-Tazobactam 3 50 100 .375 gm In Dextrose/Water 1 50ml.bag @ 12.5 mls/hr IVPB Q8HR [facility] Rx#: [id number] Sodium Chloride 0.9% 1, 800 900 000 ml @ 100 mls/hr IV . Q10H [facility] Rx#:[id number] Vancomycin 1,500 mg In 250 Sodium Chloride 0.9% 250 ml @ 125 mls/hr IVPB Q12H [facility] Rx#:[id number] Oral 480 Tube Feeding 240 Output: Urine 400 Other: # Voids 1 2 - Exam Constitutional: No acute distress, conversant, pleasant Eyes: Anicteric sclerae, moist conjunctiva, no lid-lag, PERRLA ENMT: NC/AT,Oropharynx clear, no erythema, exudates Neck:Supple, FROM, no masses, or JVD, No carotid bruits; No thyromegaly Lungs: Diminished in the left lower bases, with rhonchi Clear to percussion, Normal respiratory effort, no accessory muscle use Cardiovascular: Heart regular in rate and rhythm, No murmurs, gallops, or rubs no peripheral edema Abdominal: Soft Nontender, nom distended, no guarding, no rebound or rigidity, Normoactive bowel sounds No hepatomegaly, No splenomegaly, No palpable mass No abdominal wall hernia noted Skin: Normal temperature, tone, texture, turgor, No induration No subcutaneous nodules, No rash, lesions, No ulcers Extremities:No digital cyanosis No clubbing, Pedal pulses intact and symmetrical Radial pulses intact and symmetrical Normal gait and station, No calf tenderness Psychiatric: Alert and oriented to person, place and time, Appropriate affect Intact judgement Neuro: Muscles Strength 5/5 in all 4 extremities, Sensation to light touch grossly present throughout, Cranial nerves II-XII grossly intact. No focal sensory deficits - Labs CBC & Chem 7: 04/28/18 05:52 04/28/18 05:52 Labs: Abnormal Lab Results - Last 24 Hours (Table) 04/27/18 04/27/18 04/27/18 Range/Units 05:53 05:53 11:50 RBC 3.42 L (4.30-5.90) m/uL Hgb 10.6 L (13.0-17.5) gm/dL Hct 33.5 L (39.0-53.0) % Lymphocytes # (1.0-4.8) k/uL Carbon Dioxide 31 H (22-30) mmol/L Creatinine (0.66-1.25) mg/dL Glucose 130 H (74-99) mg/dL POC Glucose (mg/dL) 123 H (75-99) mg/dL Calcium 7.9 L (8.4-10.2) mg/dL 04/27/18 04/27/18 04/28/18 Range/Units 16:41 20:10 05:52 RBC (4.30-5.90) m/uL Hgb (13.0-17.5) gm/dL Hct (39.0-53.0) % Lymphocytes # (1.0-4.8) k/uL Carbon Dioxide 33 H (22-30) mmol/L Creatinine 0.46 L (0.66-1.25) mg/dL Glucose 170 H (74-99) mg/dL POC Glucose (mg/dL) 121 H 117 H (75-99) mg/dL Calcium 8.3 L (8.4-10.2) mg/dL 04/28/18 04/28/18 Range/Units 05:52 06:37 RBC 3.55 L (4.30-5.90) m/uL Hgb 10.8 L (13.0-17.5) gm/dL Hct 34.6 L (39.0-53.0) % Lymphocytes # 0.6 L (1.0-4.8) k/uL Carbon Dioxide (22-30) mmol/L Creatinine (0.66-1.25) mg/dL Glucose (74-99) mg/dL POC Glucose (mg/dL) 159 H (75-99) mg/dL Calcium (8.4-10.2) mg/dL Microbiology - Last 24 Hours (Table) 04/26/18 15:30 Blood Culture - Preliminary Blood No Growth after 24 hours 04/27/18 07:40 Urine Culture - Preliminary Urine,Clean Catch Assessment and Plan (1) Sepsis Narrative/Plan: * Afebrile overnight, leukocytosis resolved * Continue with current IV antibiotic regimen with Zosyn and vancomycin, Levaquin discontinued yesterday * Secondary to multifocal pneumonia likely aspiration induced due to chronic dysphagia, recent bronchial alveolar lavage sputum cultures 03/26/18 grew Klebsiella and MRSA * Patient tachycardic today due to sepsis, continue IV fluids Current Visit: Yes Status: Acute Code(s): A41.9 - SEPSIS, UNSPECIFIED ORGANISM SNOMED Code(s): 44761503 (2) Acute respiratory failure with hypoxia Narrative/Plan: * Secondary to multifocal pneumonia likely from chronic dysphagia and recurrent aspiration * Continue with supplemental oxygen, with when necessary and scheduled bronchodilator DuoNeb breathing treatments * Appreciated pulmonary recommendations Current Visit: Yes Status: Acute Code(s): J96.01 - ACUTE RESPIRATORY FAILURE WITH HYPOXIA SNOMED Code(s): 32403332 (3) Multifocal pneumonia Narrative/Plan: * Repeat chest x-ray shows slightly improved aeration of both lungs * Continue antibiotic regimen as above * Possibly related to aspiration Current Visit: Yes Status: Acute Code(s): J18.9 - PNEUMONIA, UNSPECIFIED ORGANISM SNOMED Code(s): 833659178 (4) Atypical chest pain Narrative/Plan: * Likely secondary to hypotension from sepsis * EKG with no suggestion of any acute ischemia troponins are negative 2 Current Visit: Yes Status: Acute Code(s): R07.89 - OTHER CHEST PAIN SNOMED Code(s): 291214688 (5) Dysphagia Narrative/Plan: * Speech consult pending, continue with PEG feedings * Continue Glucerna tube feeds Current Visit: No Status: Chronic Code(s): R13.10 - DYSPHAGIA, UNSPECIFIED SNOMED Code(s): 01581800 (6) Hypomagnesemia Narrative/Plan: * Magnesium level back down to 1.6 will replete again * start on daily mag oxide 400 mg by mouth twice a day Current Visit: No Status: Resolved Code(s): E83.42 - HYPOMAGNESEMIA SNOMED Code(s): 739455554 (7) Left shoulder pain Narrative/Plan: * X-ray negative for any acute fractures * We'll apply heating pad and continue Tylenol and start tramadol when necessary Current Visit: Yes Status: Acute Code(s): M25.512 - PAIN IN LEFT SHOULDER SNOMED Code(s): 79347045 (8) Type 2 diabetes mellitus with hyperglycemia Narrative/Plan: * Blood sugar stable controlled continue Accu-Cheks with correctional scale coverage as needed * A1c pending * Continue with Glucerna tube feeds Current Visit: No Status: Acute Code(s): E11.65 - TYPE 2 DIABETES MELLITUS WITH HYPERGLYCEMIA SNOMED Code(s): 462531450768812 Plan: Continue current therapy Anticipated discharge in 2 days
[2018-04-28] MEDS: traMADol 50 MG TAB PO PRN ×2 (11:39→21:19)
[2018-04-28] MEDS: MAGNESIUM SULFATE-D5W PMX 1 GM in DEXTROSE/WATER 1 100ML.BAG IVPB SCH ×2 (11:40→12:49)
[2018-04-28 11:50] LABS: Glucose,Whole Blood 152 mg/dL (75-99)
--- NOTE | 2018-04-28 11:55 | P.PN ---
Subjective Progress Note Date: 04/28/18 Principal diagnosis: Acute hypoxic respiratory failure secondary to multifocal bilateral pneumonia This is a very pleasant 53-year-old gentleman who follows with Dr. Marsh as his primary care physician. 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 He also has had evidence of aspiration pneumonias and he follows with Dr. Barron in our office. He had most recently undergone bronchoscopy with BAL on 03/26/2018 and was found to have Klebsiella pneumoniae and methicillin resistant Staphylococcus aureus. He had been treated appropriately and recovered. Yesterday he presented to our office with complaints of increasing shortness of breath, loose nonproductive cough, weakness and altered mental status. He had stated earlier yesterday morning he went outside to go to a friend's house and fell into his front lawn and could not get up for 20 minutes. He was hypotensive in the office and was referred here to the emergency room for evaluation. His chest x-ray revealed new multifocal right upper lung and infrahilar opacity suspicious for multifocal pneumonia. There is also increasing confluence of the lingular opacity also most likely representing pneumonia. He was admitted for the same. He is seen today in consultation on the selective care unit. He is currently awake and alert. Oriented 3. Able to recall the events of yesterday. He is still feeling quite weak and short of breath. He has a productive cough of thick yellowish-brown sputum. He is currently maintaining O2 saturations in the low 90s on 4 L/m per nasal cannula. He's been afebrile. Hemodynamically stable. He did not require any pressor support. White count 6.8. Hemoglobin 10.6. Creatinine 0.69. Troponins were negative 2. EKG showed sinus rhythm without acute ST and T wave abnormalities. Of and ongoing complaints of left shoulder pain. X-ray showed no fracture. He has been initiated on DuoNeb inhalations, Zosyn and Levaquin. On 04/28/2018 patient seen in follow-up. he is resting in bed, still remains quite congested, bringing up large amounts of whitish yellowish sputum. Send the sputum for culture, blood and urine cultures are pending. Patient is afebrile, his oxygenation is marginal, he is currently on 5 L per nasal cannula , his pulse ox is 93-94%, he slightly tachycardic with a heart rate at 105 BPM. Very congested loose productive cough. Appears tired, but in no acute distress. His current antibiotic coverage includes Zosyn, and vancomycin based on his previous bronchial wash cultures from February 2018 that were positive for Klebsiella pneumonia and methicillin-resistant staph aureus. Will add Pulmicort , Perforomist, and IV steroids in addition to nebulized bronchodilators. Patient is tolerating his tube feedings, maintenance and by mouth. Objective - Vital Signs Vital signs: Vital Signs Temp 97.6 F 04/28/18 08:00 Pulse 105 H 04/28/18 11:38 Resp 20 04/28/18 08:00 BP 135/73 04/28/18 08:00 Pulse Ox 93 L 04/28/18 08:00 Intake & Output 04/27/18 04/28/18 04/28/18 18:59 06:59 18:59 Intake Total 850 1970 Output Total 400 Balance 850 1570 Intake: Intake, IV Titration 850 1250 Amount Piperacillin-Tazobactam 3 50 100 .375 gm In Dextrose/Water 1 50ml.bag @ 12.5 mls/hr IVPB Q8HR [facility] Rx#: [id number] Sodium Chloride 0.9% 1, 800 900 000 ml @ 100 mls/hr IV . Q10H [facility] Rx#:[id number] Vancomycin 1,500 mg In 250 Sodium Chloride 0.9% 250 ml @ 125 mls/hr IVPB Q12H [facility] Rx#:[id number] Oral 480 Tube Feeding 240 Output: Urine 400 Other: # Voids 1 2 - Exam - Constitutional General appearance: average body habitus, disheveled, mild distress - EENT Eyes: EOMI, PERRLA ENT: hearing grossly normal Ears: bilateral: normal - Neck Neck: normal ROM Carotids: bilateral: upstroke normal Thyroid: bilateral: normal size - Respiratory Respiratory: bilateral: Diffuse rhonchi, throughout, loose congested productive cough, with production of large amount of yellow white sputum - Cardiovascular Rhythm: regular Heart sounds: normal: S1, S2 - Gastrointestinal General gastrointestinal: normal bowel sounds - Integumentary Integumentary: normal turgor - Neurologic Neurologic: CNII-XII intact - Musculoskeletal Musculoskeletal: generalized weakness - Psychiatric Psychiatric: A&O x's 3, appropriate affect, intact judgment & insight - Labs CBC & Chem 7: 04/28/18 05:52 04/28/18 05:52 Labs: Abnormal Lab Results - Last 24 Hours (Table) 04/27/18 04/27/18 04/27/18 Range/Units 11:50 16:41 20:10 RBC (4.30-5.90) m/uL Hgb (13.0-17.5) gm/dL Hct (39.0-53.0) % Lymphocytes # (1.0-4.8) k/uL Carbon Dioxide (22-30) mmol/L Creatinine (0.66-1.25) mg/dL Glucose (74-99) mg/dL POC Glucose (mg/dL) 123 H 121 H 117 H (75-99) mg/dL Calcium (8.4-10.2) mg/dL 04/28/18 04/28/18 04/28/18 Range/Units 05:52 05:52 06:37 RBC 3.55 L (4.30-5.90) m/uL Hgb 10.8 L (13.0-17.5) gm/dL Hct 34.6 L (39.0-53.0) % Lymphocytes # 0.6 L (1.0-4.8) k/uL Carbon Dioxide 33 H (22-30) mmol/L Creatinine 0.46 L (0.66-1.25) mg/dL Glucose 170 H (74-99) mg/dL POC Glucose (mg/dL) 159 H (75-99) mg/dL Calcium 8.3 L (8.4-10.2) mg/dL Microbiology - Last 24 Hours (Table) 04/26/18 15:30 Blood Culture - Preliminary Blood No Growth after 24 hours 04/27/18 07:40 Urine Culture - Preliminary Urine,Clean Catch Assessment and Plan Plan: Assessment: #1 Acute hypoxic respiratory failure secondary to multifocal bilateral pneumonia. #2 Recent aspiration pneumonia and bronchial wash including Klebsiella pneumoniae and methicillin resistant Staphylococcus aureus, 03/26/2018. #3 Altered mental status secondary to above. #4 Generalized weakness with fall secondary to above. #5 History of left brain stem stroke in June 2016 with residual right facial weakness in addition to weakness in the right upper and right lower extremity with impaired swallow. #6 Dysphagia secondary to above with PEG tube placement. #7 History of left lower extremity DVT and pulmonary embolism completed anticoagulation treatment. #8 Hypertension. #9 Hyperlipidemia. #10 Diabetes mellitus, type II. Plan: Continue current antibiotic coverage, we'll send a new specimen for sputum culture. Will add Pulmicort, Perforomist, and IV steroids to 40 mg every 6 hours. Continue with DuoNeb. Maintain aspiration precautions, maintain nothing by mouth status. I performed a history & physical examination of the patient and discussed their management with my nurse practitioner, Adriana Tena. I reviewed the nurse practitioner's note and agree with the documented findings and plan of care. Lung sounds are positive for diffuse rhonchi. The findings and the impression was discussed with the patient. I attest to the documentation by the nurse practitioner. Time with Patient: Less than 30
[2018-04-28] MEDS: methylPREDNISolone SOD SUCCI 40 MG/ML 1 ML VIAL IV SCH ×3 (12:03→22:53)
[2018-04-28] MEDS: SODIUM CHLORIDE 0.9% 1,000 ML IV SCH ×2 (13:48→21:18)
[2018-04-28 16:57] LABS: Glucose,Whole Blood 154 mg/dL (75-99)
[2018-04-28] MEDS: FORMOTEROL FUMARATE 20 MCG/2 ML NEBU INHALATION SCH (19:07)
[2018-04-28] MEDS: BUDESONIDE 1 MG/2 ML NEBU INHALATION SCH (19:07)
[2018-04-28 21:01] LABS: Glucose,Whole Blood 199 mg/dL (75-99)
[2018-04-28] MEDS: ATORVASTATIN 20 MG TAB PEG/G-TUBE SCH (21:18)
[2018-04-28] MEDS: INSULIN DETEMIR 100 UNIT/ML 10 ML VIAL SQ SCH (21:19)
[2018-04-28] MEDS: traZODone HCL 100 MG TAB PEG/G-TUBE SCH (21:19)
[2018-04-29] MEDS: VANCOMYCIN 1,500 MG in SODIUM CHLORIDE 0.9% 250 ML IVPB SCH ×4 (00:48→21:56)
[2018-04-29] MEDS: SODIUM CHLORIDE 0.9% 1,000 ML IV SCH ×2 (03:28→14:03)
[2018-04-29 06:20] LABS: Glucose,Whole Blood 149 mg/dL (75-99)
[2018-04-29] MEDS: methylPREDNISolone SOD SUCCI 40 MG/ML 1 ML VIAL IV SCH ×4 (06:24→23:31)
[2018-04-29] MEDS: INSULIN ASPART 100 UNIT/ML 1 ML 10 ML VIAL SQ SCH ×4 (06:24→21:07)
[2018-04-29 07:02] LABS: Basophils % (A) 0 %; Eosinophils % (A) 0 %; HCT 34.1 % (39.0-53.0); HGB 10.8 gm/dL (13.0-17.5); Hypochromasia Slight; Lymphocytes # (A) 0.2 k/uL (1.0-4.8); Lymphocytes % (A) 5 %; MCH 30.9 pg (25.0-35.0); MCHC 31.7 g/dL (31.0-37.0); MCV 97.5 fL (80.0-100.0); Mean Platelet Volume 6.6; Monocytes # (A) 0.2 k/uL (0-1.0); Monocytes % (A) 3 %; Neutrophils # (A) 4.4 k/uL (1.3-7.7); Neutrophils % (A) 91 %; Platelet Count 228 k/uL (150-450); RDW 13.7 % (11.5-15.5); WBC 4.8 k/uL (3.8-10.6)
[2018-04-29 07:17] LABS: Anion Gap 3 mmol/L; Blood Urea Nitrogen 5 mg/dL (9-20); Calcium 8.5 mg/dL (8.4-10.2); Carbon Dioxide 35 mmol/L (22-30); Chloride 99 mmol/L (98-107); Glucose 160 mg/dL (74-99); Magnesium 1.7 mg/dL (1.6-2.3); Potassium 4.6 mmol/L (3.5-5.1); Sodium 137 mmol/L (137-145)
[2018-04-29] MEDS: BUDESONIDE 1 MG/2 ML NEBU INHALATION SCH ×2 (08:42→19:05)
[2018-04-29] MEDS: IPRATROPIUM-ALBUTEROL 3 ML NEB INHALATION SCH ×4 (08:42→19:05)
[2018-04-29] MEDS: FORMOTEROL FUMARATE 20 MCG/2 ML NEBU INHALATION SCH ×2 (08:42→19:05)
[2018-04-29] MEDS: PIPERACILLIN-TAZOBACTAM 3.375 GM in DEXTROSE/WATER 1 50ML.BAG IVPB SCH ×3 (08:58→23:32)
[2018-04-29] MEDS ORDERED: MAGNESIUM OXIDE 400 MG TAB PO SCH ×2 (09:00→21:00)
--- NOTE | 2018-04-29 09:29 | XR ---
EXAMINATION TYPE: XR chest 2V DATE OF EXAM: 04/29/2018 COMPARISON: 04/27/2018 HISTORY: Chest pain TECHNIQUE: Frontal and lateral views of the chest are obtained. FINDINGS: Airspace consolidation left lower lobe persists as well as areas of patchy infiltrate about the right hilum and right medial lung base. Correlate for pneumonia. Follow-up until resolution is advised. No evidence for pneumothorax. No pleural effusion. The cardiac silhouette size is within normal limits. The osseous structures are grossly intact. IMPRESSION: 1. Airspace consolidation left lower lobe persists as well as areas of patchy infiltrate about the r ight hilum and right medial lung base. Correlate for pneumonia. Follow-up until resolution is advised .
[2018-04-29] MEDS ORDERED: MAGNESIUM OXIDE 400 MG TAB PO STA (09:30)
--- NOTE | 2018-04-29 09:41 | P.PN ---
Subjective Progress Note Date: 04/29/18 Patient complaining of left shoulder pain, wanting more pain medication discussed that this is likely muscle skeletal as there is no fracture seen on shoulder x-ray. Patient's pain controlled on tramadol, Increasing oxygen to 6 L overnight, patient more tachycardic today, afebrile leukocytosis with copious amounts of sputum production Objective - Vital Signs Vital signs: Vital Signs Temp 97.7 F 04/29/18 03:18 Pulse 110 H 04/29/18 09:07 Resp 18 04/29/18 08:00 BP 133/77 04/29/18 08:00 Pulse Ox 93 L 04/29/18 08:00 Intake & Output 04/28/18 04/29/18 04/29/18 18:59 06:59 18:59 Intake Total 1340 1720 Balance 1340 1720 Weight 89 kg Intake: IV 1600 Sodium Chloride 0.9% 1, 1600 000 ml @ 100 mls/hr IV . Q10H [facility] Rx#:[id number] Intake, IV Titration 1300 Amount Magnesium Sulfate-D5w Pmx 200 1 gm In Dextrose/Water 1 100ml.bag @ 100 mls/hr IVPB Q1H [facility] Rx#: [id number] Piperacillin-Tazobactam 3 50 .375 gm In Dextrose/Water 1 50ml.bag @ 12.5 mls/hr IVPB Q8HR [facility] Rx#: [id number] Sodium Chloride 0.9% 1, 800 000 ml @ 100 mls/hr IV . Q10H [facility] Rx#:[id number] Vancomycin 1,500 mg In 250 Sodium Chloride 0.9% 250 ml @ 125 mls/hr IVPB Q12H [facility] Rx#:[id number] Tube Feeding 40 120 Other: # Voids 1 - Exam Constitutional: No acute distress, conversant, pleasant Eyes: Anicteric sclerae, moist conjunctiva, no lid-lag, PERRLA ENMT: NC/AT,Oropharynx clear, no erythema, exudates Neck:Supple, FROM, no masses, or JVD, No carotid bruits; No thyromegaly Lungs: Diminished in the left lower bases, with rhonchi Clear to percussion, Normal respiratory effort, no accessory muscle use Cardiovascular: Heart regular in rate and rhythm, No murmurs, gallops, or rubs no peripheral edema Abdominal: Soft Nontender, nom distended, no guarding, no rebound or rigidity, Normoactive bowel sounds No hepatomegaly, No splenomegaly, No palpable mass No abdominal wall hernia noted Skin: Normal temperature, tone, texture, turgor, No induration No subcutaneous nodules, No rash, lesions, No ulcers Extremities:No digital cyanosis No clubbing, Pedal pulses intact and symmetrical Radial pulses intact and symmetrical Normal gait and station, No calf tenderness Psychiatric: Alert and oriented to person, place and time, Appropriate affect Intact judgement Neuro: Muscles Strength 5/5 in all 4 extremities, Sensation to light touch grossly present throughout, Cranial nerves II-XII grossly intact. No focal sensory deficits - Labs CBC & Chem 7: 04/29/18 06:18 04/29/18 06:18 Labs: Abnormal Lab Results - Last 24 Hours (Table) 04/28/18 04/28/18 04/28/18 Range/Units 11:49 16:52 21:00 RBC (4.30-5.90) m/uL Hgb (13.0-17.5) gm/dL Hct (39.0-53.0) % Lymphocytes # (1.0-4.8) k/uL Carbon Dioxide (22-30) mmol/L BUN (9-20) mg/dL Creatinine (0.66-1.25) mg/dL Glucose (74-99) mg/dL POC Glucose (mg/dL) 152 H 154 H 199 H (75-99) mg/dL 04/29/18 04/29/18 04/29/18 Range/Units 06:03 06:18 06:18 RBC 3.50 L (4.30-5.90) m/uL Hgb 10.8 L (13.0-17.5) gm/dL Hct 34.1 L (39.0-53.0) % Lymphocytes # 0.2 L (1.0-4.8) k/uL Carbon Dioxide 35 H (22-30) mmol/L BUN 5 L (9-20) mg/dL Creatinine 0.38 L (0.66-1.25) mg/dL Glucose 160 H (74-99) mg/dL POC Glucose (mg/dL) 149 H (75-99) mg/dL Microbiology - Last 24 Hours (Table) 04/28/18 14:44 Gram Stain - Preliminary Sputum Sputum Culture - Preliminary 04/26/18 15:30 Blood Culture - Preliminary Blood No Growth after 48 hours 04/27/18 07:40 Urine Culture - Final Urine,Clean Catch Assessment and Plan (1) Sepsis Narrative/Plan: * Afebrile overnight, leukocytosis resolved * Continue with current IV antibiotic regimen with Zosyn and vancomycin, Levaquin discontinued yesterday * Secondary to multifocal pneumonia likely aspiration induced due to chronic dysphagia, recent bronchial alveolar lavage sputum cultures 03/26/18 grew Klebsiella and MRSA * Patient tachycardic today due to sepsis, continue IV fluids Current Visit: Yes Status: Acute Code(s): A41.9 - SEPSIS, UNSPECIFIED ORGANISM SNOMED Code(s): 28500176 (2) Acute respiratory failure with hypoxia Narrative/Plan: * Secondary to multifocal pneumonia likely from chronic dysphagia and recurrent aspiration * Continue with supplemental oxygen, with when necessary and scheduled bronchodilator DuoNeb breathing treatments * Appreciated pulmonary recommendations, continue antibiotic regimen with vancomycin and Zosyn along with IV steroids Pulmicort and Perforomist Current Visit: Yes Status: Acute Code(s): J96.01 - ACUTE RESPIRATORY FAILURE WITH HYPOXIA SNOMED Code(s): 29301115 (3) Multifocal pneumonia Narrative/Plan: * Repeat chest x-ray 04/29/18 shows airspace consolidation in the left lower lobe and patchy infiltrate in the right hilum and medial lung * Continue antibiotic regimen as above * Possibly related to aspiration Current Visit: Yes Status: Acute Code(s): J18.9 - PNEUMONIA, UNSPECIFIED ORGANISM SNOMED Code(s): 248522806 (4) Atypical chest pain Narrative/Plan: * Likely secondary to hypotension from sepsis, now resolved * EKG with no suggestion of any acute ischemia troponins are negative 2 Current Visit: Yes Status: Acute Code(s): R07.89 - OTHER CHEST PAIN SNOMED Code(s): 396216478 (5) Dysphagia Narrative/Plan: * The patient with recurrent aspiration likely secondary to noncompliance with recommended diet * Speech consult pending, continue with PEG feedings * Continue Glucerna tube feeds Current Visit: No Status: Chronic Code(s): R13.10 - DYSPHAGIA, UNSPECIFIED SNOMED Code(s): 21684999 (6) Hypomagnesemia Narrative/Plan: * Magnesium level back down to 1.7 will replete again * Increasing daily mag oxide to 800 mg by mouth twice a day Current Visit: No Status: Resolved Code(s): E83.42 - HYPOMAGNESEMIA SNOMED Code(s): 641874711 (7) Left shoulder pain Narrative/Plan: * X-ray negative for any acute fractures * We'll apply heating pad and continue Tylenol and continue tramadol when necessary Current Visit: Yes Status: Acute Code(s): M25.512 - PAIN IN LEFT SHOULDER SNOMED Code(s): 28798192 (8) Type 2 diabetes mellitus with hyperglycemia Narrative/Plan: * Blood sugar elevated at 150-199 continue Accu-Cheks with correctional scale coverage as needed * A1c pending * Continue with Glucerna tube feeds Current Visit: No Status: Acute Code(s): E11.65 - TYPE 2 DIABETES MELLITUS WITH HYPERGLYCEMIA SNOMED Code(s): 096151437311880 Plan: Continue current therapy Anticipated discharge in 2 days
[2018-04-29] MEDS: ENOXAPARIN 40 MG/0.4 ML SYRINGE SQ SCH (09:47)
[2018-04-29] MEDS: PANTOPRAZOLE 40 MG/10 ML VIAL IV SCH (09:47)
[2018-04-29] MEDS: ASPIRIN 325 MG TAB PEG/G-TUBE SCH (09:47)
[2018-04-29] MEDS: ESCITALOPRAM 20 MG TAB PEG/G-TUBE SCH (09:47)
[2018-04-29] MEDS: GABAPENTIN 300 MG CAP PO SCH ×3 (09:47→20:08)
[2018-04-29] MEDS: LORATADINE 10 MG TAB PO SCH (09:47)
[2018-04-29] MEDS: AMITRIPTYLINE HCL 25 MG TAB PEG/G-TUBE SCH ×2 (09:48→20:02)
[2018-04-29] MEDS: busPIRone HCl 10 MG TAB PEG/G-TUBE SCH ×2 (09:48→20:10)
[2018-04-29 11:34] LABS: Glucose,Whole Blood 167 mg/dL (75-99)
[2018-04-29] MEDS ORDERED: VANCOMYCIN TROUGH DUE 1 EACH MISC MISCELLANE ONE (12:00)
[2018-04-29 12:07] LABS: T4/T8 Ratio (CD4:CD8) 1.9 (1.0-3.7)
[2018-04-29 14:35] VITALS: BMI 28.1
--- NOTE | 2018-04-29 16:02 | P.PN ---
Subjective Progress Note Date: 04/29/18 Principal diagnosis: Acute hypoxic respiratory failure secondary to multifocal bilateral pneumonia This is a very pleasant 53-year-old gentleman who follows with Dr. Marsh as his primary care physician. 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 He also has had evidence of aspiration pneumonias and he follows with Dr. Barron in our office. He had most recently undergone bronchoscopy with BAL on 03/26/2018 and was found to have Klebsiella pneumoniae and methicillin resistant Staphylococcus aureus. He had been treated appropriately and recovered. Yesterday he presented to our office with complaints of increasing shortness of breath, loose nonproductive cough, weakness and altered mental status. He had stated earlier yesterday morning he went outside to go to a friend's house and fell into his front lawn and could not get up for 20 minutes. He was hypotensive in the office and was referred here to the emergency room for evaluation. His chest x-ray revealed new multifocal right upper lung and infrahilar opacity suspicious for multifocal pneumonia. There is also increasing confluence of the lingular opacity also most likely representing pneumonia. He was admitted for the same. He is seen today in consultation on the selective care unit. He is currently awake and alert. Oriented 3. Able to recall the events of yesterday. He is still feeling quite weak and short of breath. He has a productive cough of thick yellowish-brown sputum. He is currently maintaining O2 saturations in the low 90s on 4 L/m per nasal cannula. He's been afebrile. Hemodynamically stable. He did not require any pressor support. White count 6.8. Hemoglobin 10.6. Creatinine 0.69. Troponins were negative 2. EKG showed sinus rhythm without acute ST and T wave abnormalities. Of and ongoing complaints of left shoulder pain. X-ray showed no fracture. He has been initiated on DuoNeb inhalations, Zosyn and Levaquin. On 04/28/2018 patient seen in follow-up. he is resting in bed, still remains quite congested, bringing up large amounts of whitish yellowish sputum. Send the sputum for culture, blood and urine cultures are pending. Patient is afebrile, his oxygenation is marginal, he is currently on 5 L per nasal cannula , his pulse ox is 93-94%, he slightly tachycardic with a heart rate at 105 BPM. Very congested loose productive cough. Appears tired, but in no acute distress. His current antibiotic coverage includes Zosyn, and vancomycin based on his previous bronchial wash cultures from February 2018 that were positive for Klebsiella pneumonia and methicillin-resistant staph aureus. Will add Pulmicort , Perforomist, and IV steroids in addition to nebulized bronchodilators. Patient is tolerating his tube feedings, maintenance and by mouth. On 04/29/2018 patient seen in follow-up on selective care unit. Much less congested today, more awake, breathing easier. Remains pulse ox is 94%, is a bit tachycardic, with a heart rate up to 103-110 BPM. No fever or chills. Blood and urine cultures are negative, sputum culture is pending. Today's lab work has been reviewed, WBCs 4.8, hemoglobin is 10.8, sodium is 137, potassium is 4.6, CO2 35, BUN is 5, creatinine 0.38. Patient remains nothing by mouth, he is tolerating tube feedings. His antibiotic coverage includes Zosyn and vancomycin. He is on IV steroids, nebulized bronchodilators. He is feeling better today. We'll continue current medical treatment. Objective - Vital Signs Vital signs: Vital Signs Temp 97.7 F 04/29/18 03:18 Pulse 110 H 04/29/18 12:16 Resp 18 04/29/18 12:00 BP 119/68 04/29/18 12:00 Pulse Ox 94 L 04/29/18 12:00 Intake & Output 04/28/18 04/29/18 04/29/18 18:59 06:59 18:59 Intake Total 1340 1720 Balance 1340 1720 Weight 89 kg 89 kg Intake: IV 1600 Sodium Chloride 0.9% 1, 1600 000 ml @ 100 mls/hr IV . Q10H [facility] Rx#:[id number] Intake, IV Titration 1300 Amount Magnesium Sulfate-D5w Pmx 200 1 gm In Dextrose/Water 1 100ml.bag @ 100 mls/hr IVPB Q1H [facility] Rx#: [id number] Piperacillin-Tazobactam 3 50 .375 gm In Dextrose/Water 1 50ml.bag @ 12.5 mls/hr IVPB Q8HR [facility] Rx#: [id number] Sodium Chloride 0.9% 1, 800 000 ml @ 100 mls/hr IV . Q10H [facility] Rx#:[id number] Vancomycin 1,500 mg In 250 Sodium Chloride 0.9% 250 ml @ 125 mls/hr IVPB Q12H [facility] Rx#:[id number] Tube Feeding 40 120 Other: # Voids 1 - Exam - Constitutional General appearance: average body habitus, disheveled, mild distress - EENT Eyes: EOMI, PERRLA ENT: hearing grossly normal Ears: bilateral: normal - Neck Neck: normal ROM Carotids: bilateral: upstroke normal Thyroid: bilateral: normal size - Respiratory Respiratory: bilateral: Much less congested, lung sounds are positive only for a few rhonchi, overall improved since yesterday. - Cardiovascular Rhythm: regular Heart sounds: normal: S1, S2 - Gastrointestinal General gastrointestinal: normal bowel sounds. Left upper quadrant PEG tube with tube feedings infusing - Integumentary Integumentary: normal turgor - Neurologic Neurologic: CNII-XII intact - Musculoskeletal Musculoskeletal: generalized weakness - Psychiatric Psychiatric: A&O x's 3, appropriate affect, intact judgment & insight - Labs CBC & Chem 7: 04/29/18 06:18 04/29/18 06:18 Labs: Abnormal Lab Results - Last 24 Hours (Table) 04/28/18 04/28/18 04/29/18 Range/Units 16:52 21:00 06:03 RBC (4.30-5.90) m/uL Hgb (13.0-17.5) gm/dL Hct (39.0-53.0) % Lymphocytes # (1.0-4.8) k/uL Carbon Dioxide (22-30) mmol/L BUN (9-20) mg/dL Creatinine (0.66-1.25) mg/dL Glucose (74-99) mg/dL POC Glucose (mg/dL) 154 H 199 H 149 H (75-99) mg/dL 04/29/18 04/29/18 04/29/18 Range/Units 06:18 06:18 11:31 RBC 3.50 L (4.30-5.90) m/uL Hgb 10.8 L (13.0-17.5) gm/dL Hct 34.1 L (39.0-53.0) % Lymphocytes # 0.2 L (1.0-4.8) k/uL Carbon Dioxide 35 H (22-30) mmol/L BUN 5 L (9-20) mg/dL Creatinine 0.38 L (0.66-1.25) mg/dL Glucose 160 H (74-99) mg/dL POC Glucose (mg/dL) 167 H (75-99) mg/dL Microbiology - Last 24 Hours (Table) 04/28/18 14:44 Gram Stain - Preliminary Sputum Sputum Culture - Preliminary 04/26/18 15:30 Blood Culture - Preliminary Blood No Growth after 48 hours 04/27/18 07:40 Urine Culture - Final Urine,Clean Catch Assessment and Plan Plan: Assessment: #1 Acute hypoxic respiratory failure secondary to multifocal bilateral pneumonia. #2 Recent aspiration pneumonia and bronchial wash including Klebsiella pneumoniae and methicillin resistant Staphylococcus aureus, 03/26/2018. #3 Altered mental status secondary to above. #4 Generalized weakness with fall secondary to above. #5 History of left brain stem stroke in June 2016 with residual right facial weakness in addition to weakness in the right upper and right lower extremity with impaired swallow. #6 Dysphagia secondary to above with PEG tube placement. #7 History of left lower extremity DVT and pulmonary embolism completed anticoagulation treatment. #8 Hypertension. #9 Hyperlipidemia. #10 Diabetes mellitus, type II. Plan: Continue current antibiotic coverage, awaiting the results of the sputum culture , no fever or chills, patient is much less congested on today's exam, breathing easier. He steroids, nebulized bronchodilators. Continue GI and DVT prophylaxis. He is tolerating oral feedings, no fever or chills, no worsening shortness of breath. I performed a history & physical examination of the patient and discussed their management with my nurse practitioner, Adriana Tena. I reviewed the nurse practitioner's note and agree with the documented findings and plan of care. Lung sounds are positive for a few rhonchi. The findings and the impression was discussed with the patient. I attest to the documentation by the nurse practitioner. Time with Patient: Less than 30
[2018-04-29 17:02] LABS: Glucose,Whole Blood 159 mg/dL (75-99)
[2018-04-29] MEDS: ATORVASTATIN 20 MG TAB PEG/G-TUBE SCH (20:08)
[2018-04-29] MEDS: traMADol 50 MG TAB PO PRN (20:09)
[2018-04-29] MEDS: traZODone HCL 100 MG TAB PEG/G-TUBE SCH (20:09)
[2018-04-29] MEDS: MAGNESIUM OXIDE 400 MG TAB PEG/G-TUBE SCH (20:09)
[2018-04-29 20:51] LABS: Glucose,Whole Blood 167 mg/dL (75-99)
[2018-04-29] MEDS: INSULIN DETEMIR 100 UNIT/ML 10 ML VIAL SQ SCH (21:07)
[2018-04-30] MEDS: SODIUM CHLORIDE 0.9% 1,000 ML IV SCH ×3 (01:28→22:03)
[2018-04-30 04:56] LABS: Hemoglobin A1C 9.2 % (4.0-6.0)
[2018-04-30 05:37] LABS: Glucose,Whole Blood 164 mg/dL (75-99)
[2018-04-30] MEDS: methylPREDNISolone SOD SUCCI 40 MG/ML 1 ML VIAL IV SCH (06:10)
[2018-04-30] MEDS: VANCOMYCIN 1,500 MG in SODIUM CHLORIDE 0.9% 250 ML IVPB SCH ×3 (06:10→22:04)
[2018-04-30] MEDS: INSULIN ASPART 100 UNIT/ML 1 ML 10 ML VIAL SQ SCH ×4 (06:22→22:11)
[2018-04-30] MEDS: FORMOTEROL FUMARATE 20 MCG/2 ML NEBU INHALATION SCH ×2 (07:23→20:05)
[2018-04-30] MEDS: IPRATROPIUM-ALBUTEROL 3 ML NEB INHALATION SCH ×4 (07:23→20:05)
[2018-04-30] MEDS: BUDESONIDE 1 MG/2 ML NEBU INHALATION SCH ×2 (07:23→20:05)
--- NOTE | 2018-04-30 09:07 | P.PN ---
Progress Note - Text Progress Note Date: 04/30/18 Hospitalist interval note- Patient seen and examined at bedside. He is feeling well today. Shortness of breath is resolved and cough is much improved. He is hoping for discharge today if it is okay with pulmonary. Still having some left sided shoulder pain worse with movement. Appears to be consistent with shoulder strain/muscle spasm. Will be started on Flexeril now and for discharge. -Formal progress note or discharge summary to follow once patient seen by pulmonary.
[2018-04-30] MEDS: ESCITALOPRAM 20 MG TAB PEG/G-TUBE SCH (09:20)
[2018-04-30] MEDS: ASPIRIN 325 MG TAB PEG/G-TUBE SCH (09:20)
[2018-04-30] MEDS: GABAPENTIN 300 MG CAP PO SCH ×3 (09:20→22:10)
[2018-04-30] MEDS: LORATADINE 10 MG TAB PO SCH (09:21)
[2018-04-30] MEDS: busPIRone HCl 10 MG TAB PEG/G-TUBE SCH ×2 (09:21→22:09)
[2018-04-30] MEDS: MAGNESIUM OXIDE 400 MG TAB PEG/G-TUBE SCH ×2 (09:22→22:10)
[2018-04-30] MEDS: AMITRIPTYLINE HCL 25 MG TAB PEG/G-TUBE SCH ×2 (09:22→22:04)
[2018-04-30] MEDS: CYCLOBENZAPRINE 5 MG TAB PO PRN ×3 (09:22→22:10)
[2018-04-30] MEDS: PANTOPRAZOLE 40 MG/10 ML VIAL IV SCH (09:30)
[2018-04-30] MEDS: PIPERACILLIN-TAZOBACTAM 3.375 GM in DEXTROSE/WATER 1 50ML.BAG IVPB SCH ×3 (09:43→23:43)
[2018-04-30] MEDS: ENOXAPARIN 40 MG/0.4 ML SYRINGE SQ SCH (09:43)
[2018-04-30 11:33] LABS: Glucose,Whole Blood 139 mg/dL (75-99)
--- NOTE | 2018-04-30 12:54 | P.PN ---
Subjective Progress Note Date: 04/30/18 Principal diagnosis: Acute hypoxic respiratory failure secondary to multifocal bilateral pneumonia This is a very pleasant 53-year-old gentleman who follows with Dr. Marsh as his primary care physician. 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 He also has had evidence of aspiration pneumonias and he follows with Dr. Barron in our office. He had most recently undergone bronchoscopy with BAL on 03/26/2018 and was found to have Klebsiella pneumoniae and methicillin resistant Staphylococcus aureus. He had been treated appropriately and recovered. Yesterday he presented to our office with complaints of increasing shortness of breath, loose nonproductive cough, weakness and altered mental status. He had stated earlier yesterday morning he went outside to go to a friend's house and fell into his front lawn and could not get up for 20 minutes. He was hypotensive in the office and was referred here to the emergency room for evaluation. His chest x-ray revealed new multifocal right upper lung and infrahilar opacity suspicious for multifocal pneumonia. There is also increasing confluence of the lingular opacity also most likely representing pneumonia. He was admitted for the same. He is seen today in consultation on the selective care unit. He is currently awake and alert. Oriented 3. Able to recall the events of yesterday. He is still feeling quite weak and short of breath. He has a productive cough of thick yellowish-brown sputum. He is currently maintaining O2 saturations in the low 90s on 4 L/m per nasal cannula. He's been afebrile. Hemodynamically stable. He did not require any pressor support. White count 6.8. Hemoglobin 10.6. Creatinine 0.69. Troponins were negative 2. EKG showed sinus rhythm without acute ST and T wave abnormalities. Of and ongoing complaints of left shoulder pain. X-ray showed no fracture. He has been initiated on DuoNeb inhalations, Zosyn and Levaquin. On 04/28/2018 patient seen in follow-up. he is resting in bed, still remains quite congested, bringing up large amounts of whitish yellowish sputum. Send the sputum for culture, blood and urine cultures are pending. Patient is afebrile, his oxygenation is marginal, he is currently on 5 L per nasal cannula , his pulse ox is 93-94%, he slightly tachycardic with a heart rate at 105 BPM. Very congested loose productive cough. Appears tired, but in no acute distress. His current antibiotic coverage includes Zosyn, and vancomycin based on his previous bronchial wash cultures from February 2018 that were positive for Klebsiella pneumonia and methicillin-resistant staph aureus. Will add Pulmicort , Perforomist, and IV steroids in addition to nebulized bronchodilators. Patient is tolerating his tube feedings, maintenance and by mouth. On 04/29/2018 patient seen in follow-up on selective care unit. Much less congested today, more awake, breathing easier. Remains pulse ox is 94%, is a bit tachycardic, with a heart rate up to 103-110 BPM. No fever or chills. Blood and urine cultures are negative, sputum culture is pending. Today's lab work has been reviewed, WBCs 4.8, hemoglobin is 10.8, sodium is 137, potassium is 4.6, CO2 35, BUN is 5, creatinine 0.38. Patient remains nothing by mouth, he is tolerating tube feedings. His antibiotic coverage includes Zosyn and vancomycin. He is on IV steroids, nebulized bronchodilators. He is feeling better today. We'll continue current medical treatment. the patient is seen again today 04/30/2018 in follow-up on the selective care unit. He is awake and alert in no acute distress. He feels he is nearly back to his baseline as far as his breathing is concerned. he denies any worsening shortness of breath, cough or congestion. Maintaining O2 saturations in the upper 90s on 4 L/m per nasal cannula. He's been afebrile. Hemodynamically stable. Sputum culture is negative. Urine and blood cultures are negative as well. he has been maintained on vancomycin and Zosyn. Objective - Vital Signs Vital signs: Vital Signs Temp 98.1 F 04/30/18 08:00 Pulse 100 04/30/18 11:18 Resp 18 04/30/18 08:00 BP 138/54 04/30/18 08:00 Pulse Ox 97 04/30/18 08:00 Intake & Output 04/29/18 04/30/18 04/30/18 18:59 06:59 18:59 Intake Total 1120 330 Balance 1120 330 Weight 89 kg 85.6 kg Intake: Tube Feeding 1120 330 Other: Voiding Method Toilet # Voids 2 - Exam - Constitutional General appearance: average body habitus, no acute distress - EENT Eyes: EOMI, PERRLA ENT: hearing grossly normal Ears: bilateral: normal - Neck Neck: normal ROM Carotids: bilateral: upstroke normal Thyroid: bilateral: normal size - Respiratory Respiratory: bilateral: Much less congested, lung sounds are positive only for a few rhonchi, overall improved since yesterday. - Cardiovascular Rhythm: regular Heart sounds: normal: S1, S2 - Gastrointestinal General gastrointestinal: normal bowel sounds. Left upper quadrant PEG tube with tube feedings infusing - Integumentary Integumentary: normal turgor - Neurologic Neurologic: CNII-XII intact - Musculoskeletal Musculoskeletal: generalized weakness - Psychiatric Psychiatric: A&O x's 3, appropriate affect, intact judgment & insight - Labs CBC & Chem 7: 04/29/18 06:18 04/29/18 06:18 Labs: Abnormal Lab Results - Last 24 Hours (Table) 04/29/18 04/29/18 04/29/18 Range/Units 06:18 17:00 20:50 POC Glucose (mg/dL) 159 H 167 H (75-99) mg/dL Hemoglobin A1c 9.2 H (4.0-6.0) % 04/30/18 04/30/18 Range/Units 05:35 11:31 POC Glucose (mg/dL) 164 H 139 H (75-99) mg/dL Hemoglobin A1c (4.0-6.0) % Microbiology - Last 24 Hours (Table) 04/28/18 14:44 Gram Stain - Final Sputum Sputum Culture - Final 04/26/18 15:30 Blood Culture - Preliminary Blood No Growth after 72 hours Assessment and Plan Assessment: Impression: #1 Acute hypoxic respiratory failure secondary to multifocal bilateral pneumonia. #2 Recent aspiration pneumonia and bronchial wash including Klebsiella pneumoniae and methicillin resistant Staphylococcus aureus, 03/26/2018. #3 Altered mental status secondary to above. #4 Generalized weakness with fall secondary to above. #5 History of left brain stem stroke in June 2016 with residual right facial weakness in addition to weakness in the right upper and right lower extremity with impaired swallow. #6 Dysphagia secondary to above with PEG tube placement. #7 History of left lower extremity DVT and pulmonary embolism completed anticoagulation treatment. #8 Hypertension. #9 Hyperlipidemia. #10 Diabetes mellitus, type II. Plan: The patient was seen and evaluated by Dr. Barron. he is cleared for discharge from the pulmonary standpoint. Complete his course of antibiotics in the form of Bactrim and Levaquin. Continue home medications. He will follow-up in our office in 1 week's time. We'll repeat a chest x-ray then. He is however encouraged to call sooner with any recurrence of symptoms or other questions or concerns. I, the cosigning physician, performed a history & physical examination of the patient. Lungs sounds with bilateral scattered rhonchi. Maintaining good O2 saturations in the 90s on 4 L/m per nasal. I discussed the assessment and plan of care with my nurse practitioner, Makayla Sharp. I attest to the above note as dictated by her.
--- NOTE | 2018-04-30 13:34 | P.DS ---
Providers Date of admission: 04/26/18 16:31 Expected date of discharge: 04/30/18 Attending physician: Kirk Reardon MD Consults: 04/26/18 17:19 Consult Physician Routine Consulting Provider: Ingrid Barron Consult Reason/Comments: recuurent pneumonia Do you want consulting provider notified?: Yes Primary care physician: Dasha Marsh MD Hospital Course: Discharge Diagnosis: Multifocal aspiration pneumonia, possible gram-negative and MRSA with sepsis Acute hypoxic respiratory failure Pleurisy Left shoulder pain secondary to muscle strain Diabetes mellitus type 2 with hyperglycemia, A1c 9.2 down from 9.9 approximately one month ago Dysphagia with Chronic 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 Barron for shortness of breath and hypoxemia. He had been having productive cough and shortness of breath for 4 days. He went to see Dr. Barron in the clinic where he was noted to have oxygen saturations in the 70s area in the ER he was found to be tachycardic and dyspneic with increased work of breathing. Chest x-ray showed a new multifocal right upper lobe infrahilar opacities. His white blood cell count elevated at 14.6. Serum lactic acid was 1.6. His magnesium was slightly low at 1.4. He was started on Levaquin and Zosyn and arrangements were made for admission. Pulmonary was consulted. He received 2 L of fluid secondary to hypotension. His antibiotics were transitioned to Vanco and Zosyn. He was started on bronchodilators and later steroids. He continued to have improvement in shortness of breath. He required oxygen to maintain an O2 sat greater than 90% . On 04/30 he continued to require oxygen is O2 sat was 85% on room air. He was able to ambulate without significant shortness of breath and felt as though he was ready to be discharged home. He was seen by pulmonary who is in agreement with discharge. 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 He is provided with a work note. Will complete a course of Bactrim and Levaquin. He will also complete a steroid taper. He was subsequently discharged home Patient seen and examined at bedside. Breathing is about back to baseline. Shortness of breath much improved. Cough has resolved. Vital signs reviewed and stable. General: non toxic, no distress, appears at stated age Derm: warm, dry Head: atraumatic, normocephalic, symmetric Eyes: EOMI, no lid lag, anicteric sclera Mouth: no lip lesion, mucus membranes moist Cardiovascular: S1S2 reg, no murmur, positive posterior tibial pulse bilateral, Lungs: CTA bilateral, no rhonchi, no rales , no accessory muscle use Abdominal: soft, nontender to palpation, no guarding, no appreciable organomegaly Ext: no gross muscle atrophy, no edema, no contractures Neuro: CN II-XI grossly intact, no focal neuro deficits Psych: Alert, oriented, appropriate affect A total of 40 minutes of time were spent preparing this complex discharge summary . Pertinent Studies: Chest x-ray-left lower lobe consolidation with areas of patchy infiltrate Patient Condition at Discharge: Stable Plan - Discharge Summary Discharge Rx Participant: No New Discharge Prescriptions: New Budesonide/Formoterol Fumarate [Symbicort 160-4.5 Mcg Inhaler] 1 puff INHALATION BID #1 inhaler Cyclobenzaprine [Flexeril] 5 mg PO TID PRN #21 tab PRN Reason: muscle spasm Levofloxacin [Levaquin] 750 mg PO DAILY 3 Days #3 tab predniSONE 60 mg PO DAILY #15 tab Continue Simvastatin [Zocor] 40 mg PO HS Metoprolol Tartrate [Lopressor] 12.5 mg PO DAILY Omeprazole 40 mg PO BID Insulin Aspart [NovoLOG] See Protocol SQ AC-TID PRN PRN Reason: Blood Sugar - High Ranitidine HCl [Zantac] 300 mg PO DAILY EPINEPHrine (Auto Inject) [Epipen] 0.3 mg IM ONCE PRN PRN Reason: Anaphylaxis Loratadine [Claritin] 10 mg PO DAILY Pioglitazone [Actos] 30 mg PO DAILY Sulfamethox-Tmp 800-160Mg [Bactrim DS 800-160 mg] 1 tab PO Q12H Albuterol Inhaler [Ventolin Hfa Inhaler] 1 - 2 puff INHALATION RT-Q6H PRN PRN Reason: Shortness Of Breath busPIRone HCL 15 mg PO BID Gabapentin 600 mg PO TID Fluticasone Nasal [place] [Flonase Nasal [place]] 1 - 2 spray EA NOSTRIL DAILY Escitalopram [Lexapro] 20 mg PO DAILY traZODone HCL [Desyrel] 100 mg PO HS Insulin Glargine,Hum.rec.anlog [Basaglar Kwikpen U-100] 15 unit SQ HS Discharge Medication List Metoprolol Tartrate [Lopressor] 12.5 mg PO DAILY 10/13/16 [History] Simvastatin [Zocor] 40 mg PO HS 10/13/16 [History] Omeprazole 40 mg PO BID 06/13/17 [History] Insulin Aspart [NovoLOG] See Protocol SQ AC-TID PRN 09/19/17 [History] Ranitidine HCl [Zantac] 300 mg PO DAILY 10/25/17 [History] EPINEPHrine (Auto Inject) [Epipen] 0.3 mg IM ONCE PRN 12/25/17 [History] Loratadine [Claritin] 10 mg PO DAILY 12/25/17 [History] Pioglitazone [Actos] 30 mg PO DAILY 03/28/18 [History] Albuterol Inhaler [Ventolin Hfa Inhaler] 1 - 2 puff INHALATION RT-Q6H PRN [History] Escitalopram [Lexapro] 20 mg PO DAILY 04/26/18 [History] Fluticasone Nasal [place] [Flonase Nasal [place]] 1 - 2 spray EA NOSTRIL DAILY 04/26 [History] Gabapentin 600 mg PO TID 04/26/18 [History] Insulin Glargine,Hum.rec.anlog [Basaglar Kwikpen U-100] 15 unit SQ HS 04/26/18 [ History] Sulfamethox-Tmp 800-160Mg [Bactrim DS 800-160 mg] 1 tab PO Q12H 04/26/18 [ History] busPIRone HCL 15 mg PO BID 04/26/18 [History] traZODone HCL [Desyrel] 100 mg PO HS 04/26/18 [History] Budesonide/Formoterol Fumarate [Symbicort 160-4.5 Mcg Inhaler] 1 puff INHALATION BID #1 inhaler 04/30/18 [Rx] Cyclobenzaprine [Flexeril] 5 mg PO TID PRN #21 tab 04/30/18 [Rx] Levofloxacin [Levaquin] 750 mg PO DAILY 3 Days #3 tab 04/30/18 [Rx] predniSONE 60 mg PO DAILY #15 tab 04/30/18 [Rx] Follow up Appointment(s)/Referral(s): Dasha Marsh MD [Primary Care Provider] - 05/09/18 5:00 pm Ingrid Barron MD [STAFF PHYSICIAN] - 05/10/18 2:30 pm (With Maakyla Sharp NP.) Patient Instructions/Handouts: Pneumonia (DC) Activity/Diet/Wound Care/Special Instructions: Resume prior tube feeds. 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 Discharge/Stand Alone Forms: Work/Release Restrictions Form Discharge Disposition: HOME SELF-CARE
[2018-04-30] MEDS: predniSONE 20 MG TAB PO SCH (16:09)
[2018-04-30 17:13] LABS: Glucose,Whole Blood 143 mg/dL (75-99)
[2018-04-30 18:57] VITALS: TEMP 97.9
[2018-04-30 21:00] LABS: Glucose,Whole Blood 125 mg/dL (75-99)
[2018-04-30] MEDS: ATORVASTATIN 20 MG TAB PEG/G-TUBE SCH (22:09)
[2018-04-30] MEDS: traZODone HCL 100 MG TAB PEG/G-TUBE SCH (22:10)
[2018-04-30] MEDS: INSULIN DETEMIR 100 UNIT/ML 10 ML VIAL SQ SCH (22:13)
[2018-04-30 23:59] VITALS: RESP 19
[2018-05-01] MEDS: CYCLOBENZAPRINE 5 MG TAB PO PRN (04:54)
[2018-05-01] MEDS ORDERED: VANCOMYCIN TROUGH DUE 1 EACH MISC MISCELLANE ONE (05:00)
[2018-05-01 06:19] VITALS: BP 145/90; PULSE 93
[2018-05-01 06:52] LABS: Glucose,Whole Blood 66 mg/dL (75-99)
[2018-05-01 06:52] LABS: Glucose,Whole Blood 55 mg/dL (75-99)
[2018-05-01 06:52] LABS: Glucose,Whole Blood 106 mg/dL (75-99)
[2018-05-01] MEDS: FORMOTEROL FUMARATE 20 MCG/2 ML NEBU INHALATION SCH (07:14)
[2018-05-01] MEDS: IPRATROPIUM-ALBUTEROL 3 ML NEB INHALATION SCH ×2 (07:14→10:31)
[2018-05-01] MEDS: BUDESONIDE 1 MG/2 ML NEBU INHALATION SCH (07:14)
[2018-05-01] MEDS ORDERED: CYCLOBENZAPRINE 10 MG TAB PO PRN (09:24)
[2018-05-01] MEDS: ASPIRIN 325 MG TAB PEG/G-TUBE SCH (10:13)
[2018-05-01] MEDS: MAGNESIUM OXIDE 400 MG TAB PEG/G-TUBE SCH (10:13)
[2018-05-01] MEDS: predniSONE 20 MG TAB PO SCH (10:13)
[2018-05-01] MEDS: busPIRone HCl 10 MG TAB PEG/G-TUBE SCH (10:13)
[2018-05-01] MEDS: ESCITALOPRAM 20 MG TAB PEG/G-TUBE SCH (10:13)
[2018-05-01] MEDS: LORATADINE 10 MG TAB PO SCH (10:13)
[2018-05-01] MEDS: GABAPENTIN 300 MG CAP PO SCH (10:14)
[2018-05-01] MEDS: AMITRIPTYLINE HCL 25 MG TAB PEG/G-TUBE SCH (10:14)
[2018-05-01] MEDS: INSULIN ASPART 100 UNIT/ML 1 ML 10 ML VIAL SQ SCH ×2 (11:27→12:37)
[2018-05-01 11:32] LABS: Glucose,Whole Blood 110 mg/dL (75-99)
[2018-05-01] MEDS: ENOXAPARIN 40 MG/0.4 ML SYRINGE SQ SCH (12:38)
--- NOTE | 2018-05-01 14:24 | P.PN ---
Subjective Progress Note Date: 05/01/18 Principal diagnosis: Acute hypoxic respiratory failure secondary to multifocal bilateral pneumonia This is a very pleasant 53-year-old gentleman who follows with Dr. Marsh as his primary care physician. 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 He also has had evidence of aspiration pneumonias and he follows with Dr. Barron in our office. He had most recently undergone bronchoscopy with BAL on 03/26/2018 and was found to have Klebsiella pneumoniae and methicillin resistant Staphylococcus aureus. He had been treated appropriately and recovered. Yesterday he presented to our office with complaints of increasing shortness of breath, loose nonproductive cough, weakness and altered mental status. He had stated earlier yesterday morning he went outside to go to a friend's house and fell into his front lawn and could not get up for 20 minutes. He was hypotensive in the office and was referred here to the emergency room for evaluation. His chest x-ray revealed new multifocal right upper lung and infrahilar opacity suspicious for multifocal pneumonia. There is also increasing confluence of the lingular opacity also most likely representing pneumonia. He was admitted for the same. He is seen today in consultation on the selective care unit. He is currently awake and alert. Oriented 3. Able to recall the events of yesterday. He is still feeling quite weak and short of breath. He has a productive cough of thick yellowish-brown sputum. He is currently maintaining O2 saturations in the low 90s on 4 L/m per nasal cannula. He's been afebrile. Hemodynamically stable. He did not require any pressor support. White count 6.8. Hemoglobin 10.6. Creatinine 0.69. Troponins were negative 2. EKG showed sinus rhythm without acute ST and T wave abnormalities. Of and ongoing complaints of left shoulder pain. X-ray showed no fracture. He has been initiated on DuoNeb inhalations, Zosyn and Levaquin. On 04/28/2018 patient seen in follow-up. he is resting in bed, still remains quite congested, bringing up large amounts of whitish yellowish sputum. Send the sputum for culture, blood and urine cultures are pending. Patient is afebrile, his oxygenation is marginal, he is currently on 5 L per nasal cannula , his pulse ox is 93-94%, he slightly tachycardic with a heart rate at 105 BPM. Very congested loose productive cough. Appears tired, but in no acute distress. His current antibiotic coverage includes Zosyn, and vancomycin based on his previous bronchial wash cultures from February 2018 that were positive for Klebsiella pneumonia and methicillin-resistant staph aureus. Will add Pulmicort , Perforomist, and IV steroids in addition to nebulized bronchodilators. Patient is tolerating his tube feedings, maintenance and by mouth. On 04/29/2018 patient seen in follow-up on selective care unit. Much less congested today, more awake, breathing easier. Remains pulse ox is 94%, is a bit tachycardic, with a heart rate up to 103-110 BPM. No fever or chills. Blood and urine cultures are negative, sputum culture is pending. Today's lab work has been reviewed, WBCs 4.8, hemoglobin is 10.8, sodium is 137, potassium is 4.6, CO2 35, BUN is 5, creatinine 0.38. Patient remains nothing by mouth, he is tolerating tube feedings. His antibiotic coverage includes Zosyn and vancomycin. He is on IV steroids, nebulized bronchodilators. He is feeling better today. We'll continue current medical treatment. the patient is seen again today 04/30/2018 in follow-up on the selective care unit. He is awake and alert in no acute distress. He feels he is nearly back to his baseline as far as his breathing is concerned. he denies any worsening shortness of breath, cough or congestion. Maintaining O2 saturations in the upper 90s on 4 L/m per nasal cannula. He's been afebrile. Hemodynamically stable. Sputum culture is negative. Urine and blood cultures are negative as well. he has been maintained on vancomycin and Zosyn. The patient is seen again today 05/01/2018 in follow-up on the selective care unit. He is currently sitting up in bed. He is awake and alert in no acute distress. Culture reveals no growth. Urine culture reveals no growth. Blood culture reveals no growth. The plan is for discharge once he has a place to stay. Objective - Vital Signs Vital signs: Vital Signs Temp 97.9 F 04/30/18 16:00 Pulse 93 05/01/18 06:18 Resp 19 05/01/18 06:18 BP 145/90 05/01/18 06:18 Pulse Ox 93 L 05/01/18 06:18 Intake & Output 04/30/18 05/01/18 05/01/18 18:59 06:59 18:59 Intake Total 990 1450 220 Output Total 800 Balance 990 1450 -580 Weight 79.9 kg Intake: Oral 900 Tube Feeding 990 550 220 Output: Urine 800 Other: Voiding Method Toilet # Voids 2 # Bowel Movements 1 - Exam - Constitutional General appearance: average body habitus, no acute distress - EENT Eyes: EOMI, PERRLA ENT: hearing grossly normal Ears: bilateral: normal - Neck Neck: normal ROM Carotids: bilateral: upstroke normal Thyroid: bilateral: normal size - Respiratory Respiratory: bilateral: Much less congested, lung sounds are positive only for a few rhonchi, overall improved since yesterday. - Cardiovascular Rhythm: regular Heart sounds: normal: S1, S2 - Gastrointestinal General gastrointestinal: normal bowel sounds. Left upper quadrant PEG tube with tube feedings infusing - Integumentary Integumentary: normal turgor - Neurologic Neurologic: CNII-XII intact - Musculoskeletal Musculoskeletal: generalized weakness - Psychiatric Psychiatric: A&O x's 3, appropriate affect, intact judgment & insight - Labs CBC & Chem 7: 04/29/18 06:18 04/29/18 06:18 Labs: Abnormal Lab Results - Last 24 Hours (Table) 04/30/18 04/30/18 05/01/18 Range/Units 16:56 20:49 06:01 POC Glucose (mg/dL) 143 H 125 H 55 L (75-99) mg/dL 05/01/18 05/01/18 05/01/18 Range/Units 06:22 06:49 11:29 POC Glucose (mg/dL) 66 L 106 H 110 H (75-99) mg/dL Microbiology - Last 24 Hours (Table) 04/26/18 15:30 Blood Culture - Preliminary Blood No Growth after 96 hours 04/28/18 14:44 Gram Stain - Final Sputum Sputum Culture - Final Assessment and Plan Assessment: Impression: #1 Acute hypoxic respiratory failure secondary to multifocal bilateral pneumonia. #2 Recent aspiration pneumonia and bronchial wash including Klebsiella pneumoniae and methicillin resistant Staphylococcus aureus, 03/26/2018. #3 Altered mental status secondary to above. #4 Generalized weakness with fall secondary to above. #5 History of left brain stem stroke in June 2016 with residual right facial weakness in addition to weakness in the right upper and right lower extremity with impaired swallow. #6 Dysphagia secondary to above with PEG tube placement. #7 History of left lower extremity DVT and pulmonary embolism completed anticoagulation treatment. #8 Hypertension. #9 Hyperlipidemia. #10 Diabetes mellitus, type II. Plan: The patient was seen and evaluated by Dr. Barron. He is cleared for discharge from the pulmonary standpoint the patient has a safe place to stay with his home oxygen. Complete his course of antibiotics in the form of Bactrim and Levaquin. Continue home medications. He will follow-up in our office in 1 week' s time. I, the cosigning physician, performed a history & physical examination of the patient. Lungs sounds with bilateral scattered rhonchi. Maintaining good O2 saturations in the 90s on 4 L/m per nasal. I discussed the assessment and plan of care with my nurse practitioner, Makayla Sharp. I attest to the above note as dictated by her.
[2018-05-01 15:09] LABS: S.pneumoniae Serotype 10A (34) 1.8 mcg/mL (>=2.9); S.pneumoniae Serotype 12F (12) 2.7 mcg/mL (>=0.6); S.pneumoniae Serotype 14 (14) 22.6 mcg/mL (>=7.0); S.pneumoniae Serotype 18C (56) 3.9 mcg/mL (>=3.3); S.pneumoniae Serotype 19A (57) 31.7 mcg/mL (>=17.1); S.pneumoniae Serotype 19F (19) 12.4 mcg/mL (>=15.0); S.pneumoniae Serotype 20 (20) 1.9 mcg/mL (>=1.3); S.pneumoniae Serotype 22F (22) 5.8 mcg/mL (>=7.2); S.pneumoniae Serotype 23F (23) 8.9 mcg/mL (>=8.0); S.pneumoniae Serotype 3 (3) 1.7 mcg/mL (>=1.8); S.pneumoniae Serotype 4 (4) 1.7 mcg/mL (>=0.6); S.pneumoniae Serotype 5 (5) 30.7 mcg/mL (>=10.7); S.pneumoniae Serotype 6B (26) 52.1 mcg/mL (>=4.7); S.pneumoniae Serotype 7F (51) 1.9 mcg/mL (>=3.2); S.pneumoniae Serotype 8 (8) 4.9 mcg/mL (>=2.9); S.pneumoniae Serotype 9N (9) 4.5 mcg/mL (>=9.2)
--- NOTE | 2018-05-01 18:09 | P.DS ---
Providers Date of admission: 04/26/18 16:31 Expected date of discharge: 05/01/18 Attending physician: Kirk Reardon MD Consults: 04/26/18 17:19 Consult Physician Routine Consulting Provider: Ingrid Barron Consult Reason/Comments: recuurent pneumonia Do you want consulting provider notified?: Yes Primary care physician: Dasha Marsh MD Hospital Course: Discharge Diagnosis: Multifocal aspiration pneumonia, possible gram-negative and MRSA with sepsis Acute hypoxic respiratory failure Pleurisy Left shoulder pain secondary to muscle strain Diabetes mellitus type 2 with hyperglycemia, A1c 9.2 down from 9.9 approximately one month ago Dysphagia with Chronic 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 Barron for shortness of breath and hypoxemia. He had been having productive cough and shortness of breath for 4 days. He went to see Dr. Barron in the clinic where he was noted to have oxygen saturations in the 70s area in the ER he was found to be tachycardic and dyspneic with increased work of breathing. Chest x-ray showed a new multifocal right upper lobe infrahilar opacities. His white blood cell count elevated at 14.6. Serum lactic acid was 1.6. His magnesium was slightly low at 1.4. He was started on Levaquin and Zosyn and arrangements were made for admission. Pulmonary was consulted. He received 2 L of fluid secondary to hypotension. His antibiotics were transitioned to Vanco and Zosyn. He was started on bronchodilators and later steroids. He continued to have improvement in shortness of breath. He required oxygen to maintain an O2 sat greater than 90% . On 04/30 he continued to require oxygen is O2 sat was 85% on room air. He was able to ambulate without significant shortness of breath and felt as though he was ready to be discharged home. He was seen by pulmonary who is in agreement with discharge. 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 He is provided with a work note. Will complete a course of Bactrim and Levaquin. He will also complete a steroid taper. He was set to be discharged and discovered that his landlord had evicted him. His discharge was held as he needed 24 hour O2. The next day arrangements were made for him to go to a hotel. He was subsequently discharged home. He has applied for disability and has a physics faculty member. Patient seen and examined at bedside. Breathing is about back to baseline. Shortness of breath much improved. Cough has resolved. Vital signs reviewed and stable. General: non toxic, no distress, appears at stated age Derm: warm, dry Head: atraumatic, normocephalic, symmetric Eyes: EOMI, no lid lag, anicteric sclera Mouth: no lip lesion, mucus membranes moist Cardiovascular: S1S2 reg, no murmur, positive posterior tibial pulse bilateral, Lungs: CTA bilateral, no rhonchi, no rales , no accessory muscle use Abdominal: soft, nontender to palpation, no guarding, no appreciable organomegaly Ext: no gross muscle atrophy, no edema, no contractures Neuro: CN II-XI grossly intact, no focal neuro deficits Psych: Alert, oriented, appropriate affect A total of 40 minutes of time were spent preparing this complex discharge summary . Pertinent Studies: Chest x-ray-left lower lobe consolidation with areas of patchy infiltrate Patient Condition at Discharge: Stable Plan - Discharge Summary Discharge Rx Participant: No New Discharge Prescriptions: New Budesonide/Formoterol Fumarate [Symbicort 160-4.5 Mcg Inhaler] 1 puff INHALATION BID #1 inhaler Cyclobenzaprine [Flexeril] 5 mg PO TID PRN #21 tab PRN Reason: muscle spasm Levofloxacin [Levaquin] 750 mg PO DAILY 3 Days #3 tab predniSONE 60 mg PO DAILY #15 tab Continue Simvastatin [Zocor] 40 mg PO HS Metoprolol Tartrate [Lopressor] 12.5 mg PO DAILY Omeprazole 40 mg PO BID Insulin Aspart [NovoLOG] See Protocol SQ AC-TID PRN PRN Reason: Blood Sugar - High Ranitidine HCl [Zantac] 300 mg PO DAILY EPINEPHrine (Auto Inject) [Epipen] 0.3 mg IM ONCE PRN PRN Reason: Anaphylaxis Loratadine [Claritin] 10 mg PO DAILY Pioglitazone [Actos] 30 mg PO DAILY Sulfamethox-Tmp 800-160Mg [Bactrim DS 800-160 mg] 1 tab PO Q12H Albuterol Inhaler [Ventolin Hfa Inhaler] 1 - 2 puff INHALATION RT-Q6H PRN PRN Reason: Shortness Of Breath busPIRone HCL 15 mg PO BID Gabapentin 600 mg PO TID Fluticasone Nasal [place] [Flonase Nasal [place]] 1 - 2 spray EA NOSTRIL DAILY Escitalopram [Lexapro] 20 mg PO DAILY traZODone HCL [Desyrel] 100 mg PO HS Insulin Glargine,Hum.rec.anlog [Basaglar Kwikpen U-100] 15 unit SQ HS Discharge Medication List Metoprolol Tartrate [Lopressor] 12.5 mg PO DAILY 10/13/16 [History] Simvastatin [Zocor] 40 mg PO HS 10/13/16 [History] Omeprazole 40 mg PO BID 06/13/17 [History] Insulin Aspart [NovoLOG] See Protocol SQ AC-TID PRN 09/19/17 [History] Ranitidine HCl [Zantac] 300 mg PO DAILY 10/25/17 [History] EPINEPHrine (Auto Inject) [Epipen] 0.3 mg IM ONCE PRN 12/25/17 [History] Loratadine [Claritin] 10 mg PO DAILY 12/25/17 [History] Pioglitazone [Actos] 30 mg PO DAILY 03/28/18 [History] Albuterol Inhaler [Ventolin Hfa Inhaler] 1 - 2 puff INHALATION RT-Q6H PRN [History] Escitalopram [Lexapro] 20 mg PO DAILY 04/26/18 [History] Fluticasone Nasal [place] [Flonase Nasal [place]] 1 - 2 spray EA NOSTRIL DAILY 04/26 [History] Gabapentin 600 mg PO TID 04/26/18 [History] Insulin Glargine,Hum.rec.anlog [Basaglar Kwikpen U-100] 15 unit SQ HS 04/26/18 [ History] Sulfamethox-Tmp 800-160Mg [Bactrim DS 800-160 mg] 1 tab PO Q12H 04/26/18 [ History] busPIRone HCL 15 mg PO BID 04/26/18 [History] traZODone HCL [Desyrel] 100 mg PO HS 04/26/18 [History] Budesonide/Formoterol Fumarate [Symbicort 160-4.5 Mcg Inhaler] 1 puff INHALATION BID #1 inhaler 04/30/18 [Rx] Cyclobenzaprine [Flexeril] 5 mg PO TID PRN #21 tab 04/30/18 [Rx] Levofloxacin [Levaquin] 750 mg PO DAILY 3 Days #3 tab 04/30/18 [Rx] predniSONE 60 mg PO DAILY #15 tab 04/30/18 [Rx] Follow up Appointment(s)/Referral(s): Dasha Marsh MD [Primary Care Provider] - 05/09/18 5:00 pm Ingrid Barron MD [STAFF PHYSICIAN] - 05/10/18 2:30 pm (With Makayla Sharp NP.) Patient Instructions/Handouts: Pneumonia (DC) Activity/Diet/Wound Care/Special Instructions: Needs home oxygen - order sent to [facility] - call at discharge for oxygen delivery - [phone] Resume prior tube feeds. 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 [facility] [phone] Discharge/Stand Alone Forms: Work/Release Restrictions Form Discharge Disposition: HOME SELF-CARE
[2018-05-01] MEDS ORDERED: INSULIN DETEMIR 100 UNIT/ML 10 ML VIAL SQ SCH (21:00)
== END 2018-05-01 15:18 | disposition home or self-care (01) | DRG 871 ==
LOC: EC 14:56 → 3SCARD 16:31
PROVIDERS: ADMIT Family Medicine; ATTEND Family Medicine
DX: A41.9 Sepsis, unspecified organism (principal); J69.0 Pneumonitis due to inhalation of food and vomit; J96.01 Acute respiratory failure with hypoxia; J15.6 Pneumonia due to other Gram-negative bacteria; J15.212 Pneumonia due to Methicillin resistant Staphylococcus aureus; E11.65 Type 2 diabetes mellitus with hyperglycemia; E78.5 Hyperlipidemia, unspecified; E83.42 Hypomagnesemia; F32.9 Major depressive disorder, single episode, unspecified; F41.9 Anxiety disorder, unspecified; I11.9 Hypertensive heart disease without heart failure; K21.9 Gastro-esophageal reflux disease without esophagitis; K58.9 Irritable bowel syndrome, unspecified; R09.1 Pleurisy; I69.991 Dysphagia following unspecified cerebrovascular disease; R13.13 Dysphagia, pharyngeal phase; E11.42 Type 2 diabetes mellitus with diabetic polyneuropathy; H26.9 Unspecified cataract; M48.061 Spinal stenosis, lumbar region without neurogenic claudication; R25.1 Tremor, unspecified; S46.912A Strain of unspecified muscle, fascia and tendon at shoulder and upper arm level, left arm, initial encounter; Z86.010 Personal history of colon polyps; Z86.711 Personal history of pulmonary embolism; Z86.718 Personal history of other venous thrombosis and embolism; Z87.01 Personal history of pneumonia (recurrent); Z90.49 Acquired absence of other specified parts of digestive tract; Z98.1 Arthrodesis status; Z93.1 Gastrostomy status; Z79.899 Other long term (current) drug therapy; Z79.4 Long term (current) use of insulin; Z88.8 Allergy status to other drugs, medicaments and biological substances; Z88.1 Allergy status to other antibiotic agents; Z91.030 Bee allergy status; Z86.14 Personal history of Methicillin resistant Staphylococcus aureus infection; W19.XXXA Unspecified fall, initial encounter; Y92.9 Unspecified place or not applicable
CPT/HCPCS: 36415; 71046; 80048; 80053; 80061; 80202; 81001; 82550; 82553; 83036; 83605; 83690; 83735; 84484; 85025; 85379; 85610; 85730; 86003; 86317; 86355; 86357; 86359; 86360; 87040; 87070; 87086; 87205; 87449; 93005; 94640; 94760; 96361; 96365; 96366; 96367; 96375; 99291

== ENCOUNTER 2018-05-27 19:17 | Emergency (ER) | payer OTHER ==
[2018-05-27] MEDS ORDERED: SODIUM CHLORIDE 0.9% 1,000 ML IV STA (21:26)
--- NOTE | 2018-05-27 21:44 | ED ---
Syncope HPI - General Chief Complaint: Syncope Stated Complaint: fall injuring head x 2 Time Seen by Provider: 05/27/18 21:19 Source: patient Mode of arrival: ambulatory Limitations: no limitations - History of Present Illness Initial Comments: Injury is a 53-year-old woman with extensive past medical history who comes to the ER today for evaluation after an apparent syncopal episode. Patient reports he has a history of syncope, most recently occurred approximately one month ago. He reports that he was feeling somewhat fatigued and lightheaded all day today. He states he was at his friend's house standing in her kitchen when he began to feel palpitations and lightheadedness. He states that he subsequently fell forward striking his head on a cupboard and then the counter and landing on the ground. He estimated he was unconscious for less than 10 seconds. He woke up was able to stand and ambulate independently. He complains only of a mild headache. He denies any chest pain, palpitations or shortness of breath since this event. He has been evaluated in the past for stroke and has had recurrent episodes of pneumonia but never evaluated for syncope. - Related Data Home Medications Medication Instructions Recorded Confirmed Metoprolol Tartrate [Lopressor] 12.5 mg PO DAILY 10/13/16 05/27/18 Simvastatin [Zocor] 40 mg PO HS 10/13/16 05/27/18 Omeprazole 40 mg PO BID 06/13/17 05/27/18 Insulin Aspart [NovoLOG] See Protocol SQ AC-TID PRN 09/19/17 05/27/18 Ranitidine HCl [Zantac] 300 mg PO DAILY 10/25/17 05/27/18 EPINEPHrine (Auto Inject) [Epipen] 0.3 mg IM ONCE PRN 12/25/17 05/27/18 Loratadine [Claritin] 10 mg PO DAILY 12/25/17 05/27/18 Pioglitazone [Actos] 30 mg PO DAILY 03/28/18 05/27/18 Albuterol Inhaler [Ventolin Hfa 1 - 2 puff INHALATION RT-Q6H PRN 04/26/18 Inhaler] Escitalopram [Lexapro] 20 mg PO DAILY 04/26/18 05/27/[address] [Flonase 1 - 2 spray EA NOSTRIL DAILY 04/26/18 05/27/[address]] Gabapentin 600 mg PO QID 04/26/18 05/27/18 Insulin Glargine,Hum.rec.anlog 15 unit SQ HS 04/26/18 05/27/18 [Basaglar [place]pen U-100] Sulfamethox-Tmp 800-160Mg [Bactrim 1 tab PO Q12H 04/26/18 05/27/18 DS 800-160 mg] busPIRone HCL 15 mg PO BID 04/26/18 05/27/18 traZODone HCL [Desyrel] 100 mg PO HS 04/26/18 05/27/18 Cyclobenzaprine [Flexeril] 10 mg PO TID PRN 05/27/18 05/27/18 Ipratropium/Albuterol Sulfate 1 puff INHALATION RT-Q6H PRN 05/27/18 05/27/18 [Combivent Respimat Inhaler] Previous Rx's Medication Instructions Recorded Budesonide/Formoterol Fumarate 1 puff INHALATION BID #1 inhaler 04/30/18 [Symbicort 160-4.5 Mcg Inhaler] Allergies Allergy/AdvReac Type Severity Reaction Status Date / Time venom-honey bee Allergy Anaphylaxis Verified 05/27/18 22:40 [bee venom (honey bee)] metformin AdvReac Diarrhea Verified 05/27/18 22:40 vancomycin AdvReac kidneys Verified 05/27/18 22:40 shut down Review of Systems ROS Statement: Those systems with pertinent positive or pertinent negative responses have been documented in the HPI. ROS Other: All systems not noted in ROS Statement are negative. Past Medical History Past Medical History: Chest Pain / Angina, CVA/TIA, Diabetes Mellitus, Deep Vein Thrombosis (DVT), GERD/Reflux, Hyperlipidemia, Hypertension, Musculoskeletal Disorder, Pneumonia, Pulmonary Embolus (PE), Syncope Additional Past Medical History / Comment(s): CVA (06/2016), RIGHT SIDED WEAKNESS, HAS PEG TUBE WITH GLUCERNA 2.5 -TAKES 5 CANS DAILY. Purred foods. HX OF ASPIRATION PNEUMONIA, LUMBAR STENOSIS. , HX IBS. COLON POLYPS, CATARACTS, RIGHT SIDE OF BODY IS TEMPERATURE INTOLERANT. , NEUROPATHY OF HANDS & FEET, HAND TREMORS., BACK PAIN. History of Any Multi-Drug Resistant Organisms: MRSA Date of last positivie culture/infection: 03/26/18 MDRO Source:: BRONCH Past Surgical History: Appendectomy, Cholecystectomy, Heart Catheterization, Orthopedic Surgery Additional Past Surgical History / Comment(s): EXPLORATORY LAPAROTOMY, FUSION L4 -L5, COLONOSCOPY, PEG tube. , REPAIR HIATAL HERNIA, CARPAL TUNNEL SURG.bronchoscopy Past Anesthesia/Blood Transfusion Reactions: No Reported Reaction Additional Past Anesthesia/Blood Transfusion Reaction / Comment(s): COUGHS WHEN HE LIES FLAT Past Psychological History: Anxiety, Depression Smoking Status: Never smoker Past Alcohol Use History: None Reported Past Drug Use History: None Reported - Past Family History Father History Unknown: Yes Family Medical History: No Reported History Mother Family Medical History: Cancer, Pulmonary Embolus General Exam - General Exam Comments Initial Comments: Physical Exam GENERAL: Patient is well-developed and well-nourished. Patient is nontoxic and well- hydrated and is in no distress. HENT: Normocephalic, Atraumatic. No evidence of head injury, no midline cervical spine tenderness, no focal neurologic deficits EYES: PERRL, EOMI PULMONARY: Unlabored respirations. No audible rales rhonchi or wheezing was noted. CARDIOVASCULAR: There is a regular rate and rhythm without any murmurs gallops or rubs. ABDOMEN: Soft and nontender with normal bowel sounds. SKIN: Skin is clear with no lesions or rashes and otherwise unremarkable. : Deferred NEUROLOGIC: Patient is alert and oriented x3. Moving all extremities spontaneously MUSCULOSKELETAL: Normal extremities with adequate strength and full range of motion. No lower extremity swelling or edema. No calf tenderness. PSYCHIATRIC: Normal psychiatric evaluation. Limitations: no limitations Limitations: no limitations Course Vital Signs 05/27/18 05/27/18 05/27/18 19:32 21:10 21:53 Temperature 99.1 F Pulse Rate 102 H 93 Respiratory 18 17 Rate Blood Pressure 93/63 105/70 O2 Sat by Pulse 90 L 87 L 94 L Oximetry 05/27/18 05/27/18 22:00 23:00 Temperature Pulse Rate 92 Respiratory 12 18 Rate Blood Pressure 105/70 112/76 O2 Sat by Pulse 93 L 98 Oximetry EKG Findings - EKG Comments: EKG Findings:: EKG was obtained at 7:47 PM, rate is 100, rhythm is sinus, there is normal axis, normal intervals, no acute ST elevations or depressions no evidence of acute ischemia or infarction or arrhythmia. Medical Decision Making - Medical Decision Making The patient was seen and evaluated, history was obtained from the patient Patient experienced lightheadedness, palpitations and syncope believes he struck his head to times when he had a syncopal episode Labs and imaging were ordered EKG was obtained at 7:47 PM, rate is 100, rhythm is sinus, there is normal axis , normal intervals, no acute ST elevations or depressions no evidence of acute ischemia or infarction or arrhythmia. Labs are reviewed, troponin is negative elevation of significant abnormalities CT with no acute changes, there is chronic changes consistent with patient's history Patient was reevaluated, is resting comfortably, like to be discharged at this time. Patient will follow up with his primary care physician for further evaluation. All questions pertaining care were answered best my ability patient discharged home in stable condition. - Lab Data Result diagrams: 05/27/18 21:15 05/27/18 21:15 Lab Results 05/27/18 05/27/18 05/27/18 Range/Units 21:15 21:15 21:15 WBC 6.7 (3.8-10.6) k/uL RBC 4.07 L (4.30-5.90) m/uL Hgb 12.3 L (13.0-17.5) gm/dL Hct 38.5 L (39.0-53.0) % MCV 94.6 (80.0-100.0) fL MCH 30.3 (25.0-35.0) pg MCHC 32.0 (31.0-37.0) g/dL RDW 13.9 (11.5-15.5) % Plt Count 220 (150-450) k/uL Neutrophils % 70 % Lymphocytes % 19 % Monocytes % 9 % Eosinophils % 1 % Basophils % 0 % Neutrophils # 4.7 (1.3-7.7) k/uL Lymphocytes # 1.3 (1.0-4.8) k/uL Monocytes # 0.6 (0-1.0) k/uL Eosinophils # 0.1 (0-0.7) k/uL Basophils # 0.0 (0-0.2) k/uL PT 9.9 (9.0-12.0) sec INR 1.0 (<1.2) APTT 27.4 (22.0-30.0) sec Sodium 134 L (137-145) mmol/L Potassium 4.6 (3.5-5.1) mmol/L Chloride 95 L (98-107) mmol/L Carbon Dioxide 33 H (22-30) mmol/L Anion Gap 6 mmol/L BUN 18 (9-20) mg/dL Creatinine 0.85 (0.66-1.25) mg/dL Est GFR (CKD-EPI)AfAm >90 (>60 ml/min/1.73 sqM) Est GFR (CKD-EPI)NonAf >90 (>60 ml/min/1.73 sqM) Glucose 133 H (74-99) mg/dL Calcium 8.9 (8.4-10.2) mg/dL Total Bilirubin 0.6 (0.2-1.3) mg/dL AST 14 L (17-59) U/L ALT 16 L (21-72) U/L Alkaline Phosphatase 83 (38-126) U/L Troponin I (0.000-0.034) ng/mL Total Protein 6.1 L (6.3-8.2) g/dL Albumin 2.9 L (3.5-5.0) g/dL 05/27/ Range/Units 21:15 WBC (3.8-10.6) k/uL RBC (4.30-5.90) m/uL Hgb (13.0-17.5) gm/dL Hct (39.0-53.0) % MCV (80.0-100.0) fL MCH (25.0-35.0) pg MCHC (31.0-37.0) g/dL RDW (11.5-15.5) % Plt Count (150-450) k/uL Neutrophils % % Lymphocytes % % Monocytes % % Eosinophils % % Basophils % % Neutrophils # (1.3-7.7) k/uL Lymphocytes # (1.0-4.8) k/uL Monocytes # (0-1.0) k/uL Eosinophils # (0-0.7) k/uL Basophils # (0-0.2) k/uL PT (9.0-12.0) sec INR (<1.2) APTT (22.0-30.0) sec Sodium (137-145) mmol/L Potassium (3.5-5.1) mmol/L Chloride (98-107) mmol/L Carbon Dioxide (22-30) mmol/L Anion Gap mmol/L BUN (9-20) mg/dL Creatinine (0.66-1.25) mg/dL Est GFR (CKD-EPI)AfAm (>60 ml/min/1.73 sqM) Est GFR (CKD-EPI)NonAf (>60 ml/min/1.73 sqM) Glucose (74-99) mg/dL Calcium (8.4-10.2) mg/dL Total Bilirubin (0.2-1.3) mg/dL AST (17-59) U/L ALT (21-72) U/L Alkaline Phosphatase (38-126) U/L Troponin I <0.012 (0.000-0.034) ng/mL Total Protein (6.3-8.2) g/dL Albumin (3.5-5.0) g/dL Disposition Clinical Impression: Syncope Disposition: HOME SELF-CARE Condition: Stable Instructions: Syncope (DC), Concussion (ED) Is patient prescribed a controlled substance at d/c from ED?: No Referrals: Dasha Marsh MD [Primary Care Provider] - 1-2 days
[2018-05-27 21:57] LABS: ALT 16 U/L (21-72); AST 14 U/L (17-59); Albumin 2.9 g/dL (3.5-5.0); Alkaline Phosphatase 83 U/L (38-126); Anion Gap 6 mmol/L; Blood Urea Nitrogen 18 mg/dL (9-20); Calcium 8.9 mg/dL (8.4-10.2); Carbon Dioxide 33 mmol/L (22-30); Chloride 95 mmol/L (98-107); Glucose 133 mg/dL (74-99); Potassium 4.6 mmol/L (3.5-5.1); Sodium 134 mmol/L (137-145); Total Bilirubin 0.6 mg/dL (0.2-1.3); Total Protein 6.1 g/dL (6.3-8.2)
[2018-05-27 22:00] LABS: Partial Thromboplastin Time 27.4 sec (22.0-30.0); Prothrombin Time 9.9 sec (9.0-12.0)
[2018-05-27 22:04] LABS: Basophils % (A) 0 %; Eosinophils # (A) 0.1 k/uL (0-0.7); Eosinophils % (A) 1 %; HCT 38.5 % (39.0-53.0); HGB 12.3 gm/dL (13.0-17.5); Lymphocytes # (A) 1.3 k/uL (1.0-4.8); Lymphocytes % (A) 19 %; MCH 30.3 pg (25.0-35.0); MCV 94.6 fL (80.0-100.0); Mean Platelet Volume 6.7; Monocytes # (A) 0.6 k/uL (0-1.0); Monocytes % (A) 9 %; Neutrophils # (A) 4.7 k/uL (1.3-7.7); Neutrophils % (A) 70 %; Platelet Count 220 k/uL (150-450); RBC 4.07 m/uL (4.30-5.90); RDW 13.9 % (11.5-15.5); WBC 6.7 k/uL (3.8-10.6)
--- NOTE | 2018-05-27 22:26 | CT ---
EXAMINATION TYPE: CT brain ruby jeffries DATE OF EXAM: 05/27/2018 COMPARISON: CT brain 06/15/2016 HISTORY: syncopal episode with fall hitting head CT DLP: 1136.6 mGycm Automated exposure control for dose reduction was used. TECHNIQUE: CT scan of the head and cervical spine are performed without contrast. FINDINGS: Ventricles and sulci appear normal. There is no mass effect nor midline shift. There is n o sign of intracranial hemorrhage. The calvarium is intact. There is some white matter mild hypodensi ty in the posterior parietal lobes. Skull base is intact. The cervical vertebra show some straightening. There is mild spurring of the endplates at C6-7. Skull base is intact. Facet joints appear normal. There is no evidence of a fracture. Prevertebral soft ti ssues are unremarkable. IMPRESSION: There is bilateral white matter hypodensity in the posterior parietal lobes that could relate to smal l vessel ischemia. This appears not significantly different than old exam. Minor degenerative changes in the cervical spine. No fracture. No acute intracranial abnormality.
--- NOTE | 2018-05-27 22:34 | XR ---
EXAMINATION TYPE: XR chest 2V DATE OF EXAM: 05/27/2018 COMPARISON: 05/17/2018 HISTORY: Syncope. TECHNIQUE: Frontal and lateral views of the chest are obtained. FINDINGS: Heart and mediastinum are normal. There is a mild infiltrate in the left lower lobe mediall y. The right lung is clear. There is no heart failure. There are chest leads. There are no hilar mass es. IMPRESSION: There is left lower lobe pneumonia that is overall not significantly different than last exam. Normal heart.
[2018-05-27 23:32] VITALS: RESP 18
[2018-05-27 23:59] LABS: Appearance,Urine Cloudy (Clear); Bacteria,Urine Rare /hpf; Bilirubin,Urine Negative (Negative); Blood,Urine Negative (Negative); Color,Urine Yellow; Glucose,Urine (UA) Trace (Negative); Hyaline Casts,Urine 290 /lpf (0-2); Ketones,Urine Negative (Negative); Leukocyte Esterase,Urine Moderate (Negative); Mucus,Urine Many /hpf; Nitrite,Urine Negative (Negative); Protein,Urine 1+ (Negative); RBC,Urine 1 /hpf (0-5); Specific Gravity,Urine 1.019 (1.001-1.035); Squamous Epithelial Cell,Urine 2 /hpf (0-4); WBC,Urine 31 /hpf (0-5)
[2018-05-28 00:08] VITALS: BP 121/82; PULSE 97; TEMP 98.8
== END 2018-05-28 00:07 | disposition home or self-care (01) ==
LOC: EC 19:17
DX: R55 Syncope and collapse (principal); R42 Dizziness and giddiness; R53.83 Other fatigue; R00.2 Palpitations; E11.9 Type 2 diabetes mellitus without complications; K21.9 Gastro-esophageal reflux disease without esophagitis; E78.5 Hyperlipidemia, unspecified; I10 Essential (primary) hypertension; F32.9 Major depressive disorder, single episode, unspecified; F41.9 Anxiety disorder, unspecified; Z86.73 Personal history of transient ischemic attack (TIA), and cerebral infarction without residual deficits; Z86.14 Personal history of Methicillin resistant Staphylococcus aureus infection; Z79.4 Long term (current) use of insulin; Z79.899 Other long term (current) drug therapy; Z88.1 Allergy status to other antibiotic agents; Z91.030 Bee allergy status; Z95.818 Presence of other cardiac implants and grafts
CPT/HCPCS: 36415; 70450; 71046; 72125; 80053; 81001; 84484; 85025; 85610; 85730; 93005; 96360; 96361; 99284

== ENCOUNTER 2018-06-18 14:41 | Inpatient (IN) | payer OTHER ==
[2018-06-18] MEDS ORDERED: IPRATROPIUM-ALBUTEROL 3 ML NEB INHALATION STA (15:29)
--- NOTE | 2018-06-18 15:33 | ED ---
General Adult HPI - General Chief complaint: Upper Respiratory Infection Stated complaint: poss pneumonia Time Seen by Provider: 06/18/18 14:45 Source: patient, RN notes reviewed Mode of arrival: ambulatory Limitations: no limitations - History of Present Illness Initial comments: This is a 53-year-old male who presents emergency Department complaining of shortness of breath increased cough with sputum production. Patient states he has been having an ongoing problem with coughing and sputum production or since his stroke 2 years ago. Patient states she's developed MRSA pneumonia at least 2 or 3 times and has had been hospitalized during those occurrences. Patient states today his cough is been getting worse over 3 or 4 days and he cannot sleep at night because she is coughing so much he is bringing up quite a bit more sputum. Patient states she's also had some episodes of lightheadedness and since he lives alone he didn't think it was safe for him to stay at home. Patient states his oxygenation is typically poor and he has been placed on home O2. Patient denies any fever chills per patient denies any chest pain or palpitations. Patient denies any abdominal pain patient denies nausea vomiting diarrhea. Patient denies any near syncopal episode. - Related Data Home Medications Medication Instructions Recorded Confirmed Metoprolol Tartrate [Lopressor] 12.5 mg PO DAILY 10/13/16 06/18/18 Simvastatin [Zocor] 40 mg PO HS 10/13/16 06/18/18 Omeprazole 40 mg PO BID 06/13/17 06/18/18 Insulin Aspart [NovoLOG] See Protocol SQ AC-TID PRN 09/19/17 06/18/18 Ranitidine HCl [Zantac] 300 mg PO DAILY 10/25/17 06/18/18 EPINEPHrine (Auto Inject) [Epipen] 0.3 mg IM ONCE PRN 12/25/17 06/18/18 Loratadine [Claritin] 10 mg PO DAILY 12/25/17 06/18/18 Pioglitazone [Actos] 30 mg PO DAILY 03/28/18 06/18/18 Albuterol Inhaler [Ventolin Hfa 1 - 2 puff INHALATION RT-Q6H PRN 04/26/18 Inhaler] Escitalopram [Lexapro] 20 mg PO DAILY 04/26/18 06/18/18 Gabapentin 600 mg PO QID 04/26/18 06/18/18 Insulin Glargine,Hum.rec.anlog 15 unit SQ HS 04/26/18 06/18/18 [Basaglar Kwikpen U-100] traZODone HCL [Desyrel] 100 mg PO HS 04/26/18 06/18/18 Cyclobenzaprine [Flexeril] 10 mg PO TID PRN 05/27/18 06/18/18 Ipratropium/Albuterol Sulfate 1 puff INHALATION RT-Q6H PRN 05/27/18 06/18/18 [Combivent Respimat Inhaler] Budesonide/Formoterol Fumarate 1 puff INHALATION RT-BID 06/18/18 06/18/18 [Symbicort 160-4.5 Mcg Inhaler] hydrOXYzine HCL [Atarax] 25 mg PO DAILY 06/18/18 06/18/18 Allergies Allergy/AdvReac Type Severity Reaction Status Date / Time venom-honey bee Allergy Anaphylaxis Verified 06/18/18 15:11 [bee venom (honey bee)] metformin AdvReac Diarrhea Verified 06/18/18 15:11 vancomycin AdvReac kidneys Verified 06/18/18 15:11 shut down Review of Systems ROS Statement: Those systems with pertinent positive or pertinent negative responses have been documented in the HPI. ROS Other: All systems not noted in ROS Statement are negative. Past Medical History Past Medical History: Chest Pain / Angina, CVA/TIA, Diabetes Mellitus, Deep Vein Thrombosis (DVT), GERD/Reflux, Hyperlipidemia, Hypertension, Musculoskeletal Disorder, Pneumonia, Pulmonary Embolus (PE), Syncope Additional Past Medical History / Comment(s): CVA (06/2016), RIGHT SIDED WEAKNESS, HAS PEG TUBE WITH GLUCERNA 2.5 -TAKES 5 CANS DAILY. Purred foods. HX OF ASPIRATION PNEUMONIA, LUMBAR STENOSIS. , HX IBS. COLON POLYPS, CATARACTS, RIGHT SIDE OF BODY IS TEMPERATURE INTOLERANT. , NEUROPATHY OF HANDS & FEET, HAND TREMORS., BACK PAIN. History of Any Multi-Drug Resistant Organisms: MRSA Date of last positivie culture/infection: 03/26/18 MDRO Source:: BRONCH Past Surgical History: Appendectomy, Cholecystectomy, Heart Catheterization, Orthopedic Surgery Additional Past Surgical History / Comment(s): EXPLORATORY LAPAROTOMY, FUSION L4 -L5, COLONOSCOPY, PEG tube. , REPAIR HIATAL HERNIA, CARPAL TUNNEL SURG.bronchoscopy Past Anesthesia/Blood Transfusion Reactions: No Reported Reaction Additional Past Anesthesia/Blood Transfusion Reaction / Comment(s): COUGHS WHEN HE LIES FLAT Past Psychological History: Anxiety, Depression Smoking Status: Never smoker Past Alcohol Use History: None Reported Past Drug Use History: None Reported - Past Family History Father History Unknown: Yes Family Medical History: No Reported History Mother Family Medical History: Cancer, Pulmonary Embolus General Exam - General Exam Comments Initial Comments: GENERAL: Patient is well-developed and well-nourished. Patient is nontoxic and well- hydrated and is in mild distress. ENT: Neck is soft and supple. No significant lymphadenopathy is noted. Oropharynx is clear. Moist mucous membranes. Neck has full range of motion without eliciting any pain. EYES: The sclera were anicteric and conjunctiva were pink and moist. Extraocular movements were intact and pupils were equal round and reactive to light. Eyelids were unremarkable. PULMONARY: Patient has significant crackles on the right base and midlung. CARDIOVASCULAR: Patient is tachycardic at about 110 beats a minute ABDOMEN: Soft and nontender with normal bowel sounds. No palpable organomegaly was noted. There is no palpable pulsatile mass. SKIN: Skin is clear with no lesions or rashes and otherwise unremarkable. NEUROLOGIC: Patient is alert and oriented x3. Cranial nerves II through XII are grossly intact. Right arm and leg strength are slightly weakened compared to the left. Normal speech, volume and content. Symmetrical smile. MUSCULOSKELETAL: Normal extremities with adequate strength and full range of motion. No lower extremity swelling or edema. No calf tenderness. LYMPHATICS: No significant lymphadenopathy is noted PSYCHIATRIC: Normal psychiatric evaluation. Limitations: no limitations Course Vital Signs 06/18/18 06/18/18 06/18/18 14:42 15:50 15:58 Temperature 98.3 F Pulse Rate 113 H 107 H 104 H Respiratory 18 20 Rate Blood Pressure 108/75 111/78 O2 Sat by Pulse 82 L 95 Oximetry 06/18/18 16:12 Temperature Pulse Rate 106 H Respiratory Rate Blood Pressure O2 Sat by Pulse Oximetry Medical Decision Making - Medical Decision Making EKG shows sinus tachycardia at 104 bpm NJ interval is on a 42 QRS is 70 QT interval 362 QTC is 476 per patient's EKG shows inverted T waves in V1 and V2 and V3. These are not seen on the old EKG. Because the elevated troponin and the EKG changes I started the patient on heparin. I spoke with Dr. Lua he agreed to admit the patient admitted the patient I wrote admitting orders I continued heparin Nitropaste and the floor. I also gave the patient some breathing treatments on the floor because they crackles in the left base. I consulted cardiology and pulmonology. Chest x-ray showed a chronic retrocardiac infiltrate - Lab Data Result diagrams: 06/18/18 15:03 06/18/18 15:03 Lab Results 06/18/18 06/18/18 06/18/18 Range/Units 15:03 15:03 15:03 WBC 6.0 (3.8-10.6) k/uL RBC 4.22 L (4.30-5.90) m/uL Hgb 12.6 L (13.0-17.5) gm/dL Hct 40.5 (39.0-53.0) % MCV 95.8 (80.0-100.0) fL MCH 29.8 (25.0-35.0) pg MCHC 31.1 (31.0-37.0) g/dL RDW 14.5 (11.5-15.5) % Plt Count 219 (150-450) k/uL Neutrophils % 73 % Lymphocytes % 17 % Monocytes % 7 % Eosinophils % 1 % Basophils % 0 % Neutrophils # 4.4 (1.3-7.7) k/uL Lymphocytes # 1.0 (1.0-4.8) k/uL Monocytes # 0.4 (0-1.0) k/uL Eosinophils # 0.0 (0-0.7) k/uL Basophils # 0.0 (0-0.2) k/uL PT (9.0-12.0) sec INR (<1.2) APTT (22.0-30.0) sec Sodium 135 L (137-145) mmol/L Potassium 4.8 (3.5-5.1) mmol/L Chloride 92 L (98-107) mmol/L Carbon Dioxide 38 H (22-30) mmol/L Anion Gap 5 mmol/L BUN 18 (9-20) mg/dL Creatinine 0.60 L (0.66-1.25) mg/dL Est GFR (CKD-EPI)AfAm >90 (>60 ml/min/1.73 sqM) Est GFR (CKD-EPI)NonAf >90 (>60 ml/min/1.73 sqM) Glucose 243 H (74-99) mg/dL Plasma Lactic Acid Calin (0.7-2.0) mmol/L Calcium 9.0 (8.4-10.2) mg/dL Magnesium 1.7 (1.6-2.3) mg/dL Total Bilirubin 0.4 (0.2-1.3) mg/dL AST 19 (17-59) U/L ALT 16 L (21-72) U/L Alkaline Phosphatase 84 (38-126) U/L Total Creatine Kinase 32 L (55-170) U/L CK-MB (CK-2) 2.3 (0.0-2.4) ng/mL CK-MB (CK-2) Rel Index 7.2 Troponin I 0.053 H* (0.000-0.034) ng/mL Total Protein 6.9 (6.3-8.2) g/dL Albumin 3.3 L (3.5-5.0) g/dL 06/18/18 06/18/18 Range/Units 15:03 15:03 WBC (3.8-10.6) k/uL RBC (4.30-5.90) m/uL Hgb (13.0-17.5) gm/dL Hct (39.0-53.0) % MCV (80.0-100.0) fL MCH (25.0-35.0) pg MCHC (31.0-37.0) g/dL RDW (11.5-15.5) % Plt Count (150-450) k/uL Neutrophils % % Lymphocytes % % Monocytes % % Eosinophils % % Basophils % % Neutrophils # (1.3-7.7) k/uL Lymphocytes # (1.0-4.8) k/uL Monocytes # (0-1.0) k/uL Eosinophils # (0-0.7) k/uL Basophils # (0-0.2) k/uL PT 9.7 (9.0-12.0) sec INR 0.9 (<1.2) APTT 26.9 (22.0-30.0) sec Sodium (137-145) mmol/L Potassium (3.5-5.1) mmol/L Chloride (98-107) mmol/L Carbon Dioxide (22-30) mmol/L Anion Gap mmol/L BUN (9-20) mg/dL Creatinine (0.66-1.25) mg/dL Est GFR (CKD-EPI)AfAm (>60 ml/min/1.73 sqM) Est GFR (CKD-EPI)NonAf (>60 ml/min/1.73 sqM) Glucose (74-99) mg/dL Plasma Lactic Acid Calin 1.2 (0.7-2.0) mmol/L Calcium (8.4-10.2) mg/dL Magnesium (1.6-2.3) mg/dL Total Bilirubin (0.2-1.3) mg/dL AST (17-59) U/L ALT (21-72) U/L Alkaline Phosphatase (38-126) U/L Total Creatine Kinase (55-170) U/L CK-MB (CK-2) (0.0-2.4) ng/mL CK-MB (CK-2) Rel Index Troponin I (0.000-0.034) ng/mL Total Protein (6.3-8.2) g/dL Albumin (3.5-5.0) g/dL Critical Care Time Critical Care Time: Yes Total Critical Care Time: 35 Disposition Clinical Impression: Dyspnea, Hypoxia, Elevated troponin Disposition: ADMITTED IP TO THIS HOSP Referrals: Dasha Marsh MD [Primary Care Provider] - 1-2 days Time of Disposition: 17:23
[2018-06-18 15:48] LABS: Basophils % (A) 0 %; Eosinophils % (A) 1 %; HCT 40.5 % (39.0-53.0); HGB 12.6 gm/dL (13.0-17.5); Lymphocytes % (A) 17 %; MCH 29.8 pg (25.0-35.0); MCHC 31.1 g/dL (31.0-37.0); MCV 95.8 fL (80.0-100.0); Mean Platelet Volume 6.8; Monocytes # (A) 0.4 k/uL (0-1.0); Monocytes % (A) 7 %; Neutrophils # (A) 4.4 k/uL (1.3-7.7); Neutrophils % (A) 73 %; Platelet Count 219 k/uL (150-450); RBC 4.22 m/uL (4.30-5.90); RDW 14.5 % (11.5-15.5)
[2018-06-18 15:55] LABS: INR 0.9 (<1.2); Partial Thromboplastin Time 26.9 sec (22.0-30.0); Prothrombin Time 9.7 sec (9.0-12.0)
[2018-06-18 15:56] LABS: ALT 16 U/L (21-72); AST 19 U/L (17-59); Albumin 3.3 g/dL (3.5-5.0); Alkaline Phosphatase 84 U/L (38-126); Anion Gap 5 mmol/L; Blood Urea Nitrogen 18 mg/dL (9-20); Carbon Dioxide 38 mmol/L (22-30); Chloride 92 mmol/L (98-107); Glucose 243 mg/dL (74-99); Magnesium 1.7 mg/dL (1.6-2.3); Potassium 4.8 mmol/L (3.5-5.1); Sodium 135 mmol/L (137-145); Total Bilirubin 0.4 mg/dL (0.2-1.3); Total Protein 6.9 g/dL (6.3-8.2)
--- NOTE | 2018-06-18 15:57 | XR ---
EXAMINATION TYPE: XR chest 2V DATE OF EXAM: 06/18/2018 COMPARISON: Chest x-ray May 27, 2018. HISTORY: Difficulty in breathing. TECHNIQUE: Frontal and lateral views of the chest are obtained. FINDINGS: Overlying EKG leads are redemonstrated. There is persistent retrocardiac airspace opacity. Right lung is clear. No pleural effusion or pneumothorax is seen bilaterally. The cardiac silhouette size is within normal limits. The osseous structures are intact. IMPRESSION: Possible persistent retrocardiac acute infiltrate and/or atelectasis.
[2018-06-18 16:12] LABS: Creatine Kinase MB 2.3 ng/mL (0.0-2.4)
[2018-06-18 16:23] LABS: Troponin I 0.053 ng/mL (0.000-0.034)
[2018-06-18] MEDS ORDERED: NITROGLYCERIN SL TABS 0.4 MG TAB SUBLINGUAL PRN (17:25)
[2018-06-18] MEDS ORDERED: HEPARIN SODIUM,PORCINE 5,000 UNIT/ML 1 ML VIAL IV STA (17:34)
[2018-06-18] MEDS ORDERED: HEPARIN SOD,PORK IN 0.45% NACL 25,000 UNIT in 0.45% NACL 1 250ML.BAG IV SCH (17:45)
[2018-06-18] MEDS: NITROGLYCERIN OINT 1 INCH/GM PACKET TOPICAL SCH (18:16)
[2018-06-18] MEDS ORDERED: ACETAMINOPHEN TAB 325 MG TAB PO PRN (18:38)
[2018-06-18] MEDS ORDERED: ASPIRIN 81 MG PO STA (18:45)
--- NOTE | 2018-06-18 18:51 | P.HPIM ---
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 Apparently the patient has been having productive cough with yellow-green sputum over the last 4 days with increasing shortness of breath. Patient complains of mild substernal nonradiating chest pressure worsened by his cough. Described as a squeezing sensation on his chest, with episodes of nausea vomiting and diaphoresis. The patient was scheduled to have a follow-up appointment with Dr. Barron tomorrow. Previously the patient has had issues with noncompliance regarding his diet, his most recent video swallow study in December of this year showed no aspiration but did show significant pooling within the hypopharynx during swallowing, with severely impaired swallow in the pharyngeal phase, with only pleasure feeds recommended. The patient did report being compliant with his dietary recommendations. Review of records indicates patient had a heart catheterization 02/20/18 showing normal coronaries. the patient presented to the ER without his home O2 that was noted to be hypoxic on room air with oxygen sats in the 80s, patient was noted to be tachycardic EKG showed a T-wave inversions in leads v1-v3, with elevated troponin of 0.053. additional abnormal labs include a sodium of 135, blood sugar of 243. Chest x-ray showed a possible persistent retrocardiac acute infiltrate and/ or atelectasis. Lactic acid 1.2. The patient was recommended for admission for concern for underlying ACS given his elevated troponin, he was started on anticoagulation with heparin from the ER Review of Systems pertinent positives per HPI all other review of systems otherwise negative Past Medical History Past Medical History: Chest Pain / Angina, CVA/TIA, Diabetes Mellitus, Deep Vein Thrombosis (DVT), GERD/Reflux, Hyperlipidemia, Hypertension, Musculoskeletal Disorder, Pneumonia, Pulmonary Embolus (PE), Syncope Additional Past Medical History / Comment(s): CVA (06/2016), RIGHT SIDED WEAKNESS, HAS PEG TUBE WITH GLUCERNA 2.5 -TAKES 5 CANS DAILY. Purred foods. HX OF ASPIRATION PNEUMONIA, LUMBAR STENOSIS. , HX IBS. COLON POLYPS, CATARACTS, RIGHT SIDE OF BODY IS TEMPERATURE INTOLERANT. , NEUROPATHY OF HANDS & FEET, HAND TREMORS., BACK PAIN. History of Any Multi-Drug Resistant Organisms: MRSA Date of last positivie culture/infection: 03/26/18 MDRO Source:: BRONCH Past Surgical History: Appendectomy, Cholecystectomy, Heart Catheterization, Orthopedic Surgery Additional Past Surgical History / Comment(s): EXPLORATORY LAPAROTOMY, FUSION L4 -L5, COLONOSCOPY, PEG tube. , REPAIR HIATAL HERNIA, CARPAL TUNNEL SURG.bronchoscopy Past Anesthesia/Blood Transfusion Reactions: No Reported Reaction Additional Past Anesthesia/Blood Transfusion Reaction / Comment(s): COUGHS WHEN HE LIES FLAT Past Psychological History: Anxiety, Depression Smoking Status: Never smoker Past Alcohol Use History: None Reported Past Drug Use History: None Reported - Past Family History Father History Unknown: Yes Family Medical History: No Reported History Mother Family Medical History: Cancer, Pulmonary Embolus Medications and Allergies Home Medications Medication Instructions Recorded Confirmed Type Metoprolol Tartrate [Lopressor] 12.5 mg PO DAILY 10/13/16 06/18/18 History Simvastatin [Zocor] 40 mg PO HS 10/13/16 06/18/18 History Omeprazole 40 mg PO BID 06/13/17 06/18/18 History Insulin Aspart [NovoLOG] See Protocol SQ AC-TID PRN 09/19/17 06/18/18 History Ranitidine HCl [Zantac] 300 mg PO DAILY 10/25/17 06/18/18 History EPINEPHrine (Auto Inject) [Epipen] 0.3 mg IM ONCE PRN 12/25/17 06/18/18 History Loratadine [Claritin] 10 mg PO DAILY 12/25/17 06/18/18 History Pioglitazone [Actos] 30 mg PO DAILY 03/28/18 06/18/18 History Albuterol Inhaler [Ventolin Hfa 1 - 2 puff INHALATION RT-Q6H PRN 04/26/18 History Inhaler] Escitalopram [Lexapro] 20 mg PO DAILY 04/26/18 06/18/18 History Gabapentin 600 mg PO QID 04/26/18 06/18/18 History Insulin Glargine,Hum.rec.anlog 15 unit SQ HS 04/26/18 06/18/18 History [Basaglar Nataliaikpen U-100] traZODone HCL [Desyrel] 100 mg PO HS 04/26/18 06/18/18 History Cyclobenzaprine [Flexeril] 10 mg PO TID PRN 05/27/18 06/18/18 History Ipratropium/Albuterol Sulfate 1 puff INHALATION RT-Q6H PRN 05/27/18 06/18/18 History [Combivent Respimat Inhaler] Budesonide/Formoterol Fumarate 1 puff INHALATION RT-BID 06/18/18 06/18/18 History [Symbicort 160-4.5 Mcg Inhaler] hydrOXYzine HCL [Atarax] 25 mg PO DAILY 06/18/18 06/18/18 History Allergies Allergy/AdvReac Type Severity Reaction Status Date / Time venom-honey bee Allergy Anaphylaxis Verified 06/18/18 15:11 [bee venom (honey bee)] metformin AdvReac Diarrhea Verified 06/18/18 15:11 vancomycin AdvReac kidneys Verified 06/18/18 15:11 shut down Physical Exam Vitals: Vital Signs Temp Pulse Resp BP Pulse Ox 06/18/18 16:12 106 H 06/18/18 15:58 104 H 06/18/18 15:50 107 H 20 111/78 95 06/18/18 14:42 98.3 F 113 H 18 108/75 82 L Intake and Output 06/18/18 06/18/18 06/18/18 06:59 14:59 22:59 Other: Weight 77.564 kg Constitutional: Mild distress, conversant, pleasant Eyes: Anicteric sclerae, moist conjunctiva, no lid-lag, PERRLA ENMT: NC/AT,Oropharynx clear, no erythema, exudates Neck:Supple, FROM, no masses, or JVD, No carotid bruits; No thyromegaly Lungs: Diminished in the bases bibasilar crackles and rales Cardiovascular: Tachycardic regular rhythm, No murmurs, gallops, or rubs no peripheral edema Abdominal: Soft Nontender, nom distended, no guarding, no rebound or rigidity, Normoactive bowel sounds No hepatomegaly, No splenomegaly, No palpable mass No abdominal wall hernia noted Skin: Normal temperature, tone, texture, turgor, No induration No subcutaneous nodules, No rash, lesions, No ulcers Extremities:No digital cyanosis No clubbing, Pedal pulses intact and symmetrical Radial pulses intact and symmetrical Normal gait and station, No calf tenderness Psychiatric: Alert and oriented to person, place and time, Appropriate affect Intact judgement Neuro: Muscles Strength 5/5 in all 4 extremities, Sensation to light touch grossly present throughout, Cranial nerves II-XII grossly intact. No focal sensory deficits Results CBC & Chem 7: 06/18/18 15:03 06/18/18 15:03 Labs: Abnormal Lab Results - Last 24 Hours (Table) 06/18/18 06/18/18 06/18/18 Range/Units 15:03 15:03 15:03 RBC 4.22 L (4.30-5.90) m/uL Hgb 12.6 L (13.0-17.5) gm/dL Sodium 135 L (137-145) mmol/L Chloride 92 L (98-107) mmol/L Carbon Dioxide 38 H (22-30) mmol/L Creatinine 0.60 L (0.66-1.25) mg/dL Glucose 243 H (74-99) mg/dL ALT 16 L (21-72) U/L Total Creatine Kinase 32 L (55-170) U/L Troponin I 0.053 H* (0.000-0.034) ng/mL Albumin 3.3 L (3.5-5.0) g/dL Assessment and Plan (1) Acute respiratory failure with hypoxia Current Visit: No Status: Acute Code(s): J96.01 - ACUTE RESPIRATORY FAILURE WITH HYPOXIA SNOMED Code(s): 09589708 (2) Non-STEMI (non-ST elevated myocardial infarction) Current Visit: Yes Status: Acute Code(s): I21.4 - NON-ST ELEVATION (NSTEMI) MYOCARDIAL INFARCTION SNOMED Code(s): 66365250 (3) Hypertension Current Visit: No Status: Acute Code(s): I10 - ESSENTIAL (PRIMARY) HYPERTENSION SNOMED Code(s): 71838167 (4) Type 2 diabetes mellitus with hyperglycemia Current Visit: No Status: Acute Code(s): E11.65 - TYPE 2 DIABETES MELLITUS WITH HYPERGLYCEMIA SNOMED Code(s): 557070602391007 (5) Dysphagia Current Visit: No Status: Chronic Code(s): R13.10 - DYSPHAGIA, UNSPECIFIED SNOMED Code(s): 55101001 (6) Pneumonia Current Visit: No Status: Acute Code(s): J18.9 - PNEUMONIA, UNSPECIFIED ORGANISM SNOMED Code(s): 467054936 Plan: The patient is admitted with a non-STEMI concern for ACS with anterior MS after presenting with dyspnea and was found to have elevated troponin with suggestion of ischemia with T-wave inversion on v1-v3. The patient was continued on routine ACS orders we'll order aspirin statin, continue nitroglycerin and IV heparin started in the ER, continue to sequentially trend cardiac enzymes cardiology has been consulted from the ED. Restart home beta tona metoprolol and statin therapy respectively. With plans for echocardiogram in the morning We'll plan to consult pulmonology Dr. Barron in the morning. Initiate IV antibiotics with IV Levaquin with scheduled and when necessary DuoNeb breathing treatments. Patient is noted to be hyperglycemic we'll hold his oral hypoglycemics continue his home insulin regimen and initiate correctional scale coverage. Continue to monitor his clinical course CODE STATUS full code discussed the care with the patient prophylaxis : Heparin and SCDs/PPI therapy
[2018-06-18] MEDS: SYMBICORT 160-4.5 MCG INHALER INHALATION SCH (20:26)
[2018-06-18 21:04] LABS: Glucose,Whole Blood 145 mg/dL (75-99)
[2018-06-18] MEDS: INSULIN ASPART 100 UNIT/ML 1 ML 10 ML VIAL SQ SCH (21:04)
[2018-06-18] MEDS: INSULIN DETEMIR 100 UNIT/ML 10 ML VIAL SQ SCH (21:04)
[2018-06-18] MEDS: traZODone HCL 100 MG TAB PO SCH (21:05)
[2018-06-18] MEDS: ATORVASTATIN 20 MG TAB PO SCH (21:05)
[2018-06-18] MEDS: LEVOFLOXACIN 750MG-D5W PMX 750 MG in DEXTROSE/WATER 1 150ML.BAG IVPB SCH (21:05)
[2018-06-18] MEDS: GABAPENTIN 300 MG CAP PO SCH (21:05)
[2018-06-18] MEDS: CYCLOBENZAPRINE 10 MG TAB PO PRN (21:05)
[2018-06-18 21:44] LABS: Creatine Kinase MB 1.5 ng/mL (0.0-2.4)
[2018-06-18 21:54] LABS: Troponin I 0.053 ng/mL (0.000-0.034)
[2018-06-19] MEDS: NITROGLYCERIN OINT 1 INCH/GM PACKET TOPICAL SCH ×3 (00:32→13:33)
[2018-06-19 04:38] LABS: Creatine Kinase <20 U/L (55-170)
[2018-06-19 04:39] LABS: Cholesterol 124 mg/dL (<200); HDL Cholesterol 51 mg/dL (40-60); LDL Cholesterol,Calculated 52 mg/dL (0-99); Triglycerides 104 mg/dL (<150)
[2018-06-19 04:48] LABS: Creatine Kinase MB 1.3 ng/mL (0.0-2.4)
[2018-06-19 05:49] LABS: Glucose,Whole Blood 113 mg/dL (75-99)
[2018-06-19] MEDS: INSULIN ASPART 100 UNIT/ML 1 ML 10 ML VIAL SQ SCH ×4 (06:15→20:50)
[2018-06-19] MEDS: PANTOPRAZOLE 40 MG TABLET PO SCH ×2 (06:44→15:21)
[2018-06-19] MEDS: ASPIRIN 325 MG TAB PO SCH (08:06)
[2018-06-19] MEDS: ESCITALOPRAM 20 MG TAB PO SCH (08:07)
[2018-06-19] MEDS: FAMOTIDINE 20 MG TAB PO SCH (08:07)
[2018-06-19] MEDS: hydrOXYzine HCL 25 MG TAB PO SCH (08:07)
[2018-06-19] MEDS: GABAPENTIN 300 MG CAP PO SCH ×4 (08:07→20:54)
[2018-06-19] MEDS ORDERED: METOPROLOL TARTRATE 12.5 MG TAB PO SCH (09:00)
[2018-06-19] MEDS: IPRATROPIUM-ALBUTEROL 3 ML NEB INHALATION PRN ×2 (09:08→20:06)
[2018-06-19] MEDS: SYMBICORT 160-4.5 MCG INHALER INHALATION SCH ×2 (09:08→20:06)
[2018-06-19 10:11] VITALS: BMI 23.9
[2018-06-19] MEDS ORDERED: VANCOMYCIN IV PER PHARMACY 1 EACH MISC MISCELLANE PRN (10:58)
--- NOTE | 2018-06-19 11:02 | P.PN ---
Subjective Progress Note Date: 06/19/18 Patient still having copious amounts of productive yellow and rust tinged sputum. The patient became agitated and extremely defensive when questioned about why he was without his home oxygen. The patient continues to be noncompliant with regards to wear his oxygen when not in his home. Patient deciding that his oxygen tank is not portable as it has no wheels and that it's heavy for him to carry. I emphasized that despite the difficulties with him getting around with his tank, but expressed how imperative it was further him to have his oxygen at all times. Patient is also reporting that he has had his medications via PO on his previous hospitalization and that's how he takes them at home. Objective - Vital Signs Vital signs: Vital Signs Temp 98.2 F 06/19/18 04:05 Pulse 104 H 06/19/18 09:17 Resp 20 06/19/18 08:00 BP 110/68 06/19/18 04:05 Pulse Ox 94 L 06/19/18 04:05 Intake & Output 06/18/18 06/19/18 06/19/18 18:59 06:59 18:59 Intake Total 65.1 125 Balance 65.1 125 Weight 77.564 kg 75.6 kg 75.6 kg Intake: Intake, IV Titration 65.1 Amount Heparin Sod,Pork in 0.45% 65.1 NaCl 25,000 unit In 0.45 % NaCl 1 250ml.bag @ 12 UNITS/KG/HR 9.3 mls/hr IV .Q24H [facility] Rx#:[id number] Oral 125 Other: Voiding Method Toilet # Voids 1 - Exam Constitutional: Mild distress, conversant, pleasant Eyes: Anicteric sclerae, moist conjunctiva, no lid-lag, PERRLA ENMT: NC/AT,Oropharynx clear, no erythema, exudates Neck:Supple, FROM, no masses, or JVD, No carotid bruits; No thyromegaly Lungs: Diminished in the bases bibasilar crackles and rales Cardiovascular: Tachycardic regular rhythm, No murmurs, gallops, or rubs no peripheral edema Abdominal: Soft Nontender, nom distended, no guarding, no rebound or rigidity, Normoactive bowel sounds No hepatomegaly, No splenomegaly, No palpable mass No abdominal wall hernia noted Skin: Normal temperature, tone, texture, turgor, No induration No subcutaneous nodules, No rash, lesions, No ulcers Extremities:No digital cyanosis No clubbing, Pedal pulses intact and symmetrical Radial pulses intact and symmetrical Normal gait and station, No calf tenderness Psychiatric: Alert and oriented to person, place and time, Appropriate affect Intact judgement Neuro: Muscles Strength 5/5 in all 4 extremities, Sensation to light touch grossly present throughout, Cranial nerves II-XII grossly intact. No focal sensory deficits - Labs CBC & Chem 7: 06/18/18 15:03 06/18/18 15:03 Labs: Abnormal Lab Results - Last 24 Hours (Table) 06/18/18 06/18/18 06/18/18 Range/Units 15:03 15:03 15:03 RBC 4.22 L (4.30-5.90) m/uL Hgb 12.6 L (13.0-17.5) gm/dL APTT (22.0-30.0) sec Sodium 135 L (137-145) mmol/L Chloride 92 L (98-107) mmol/L Carbon Dioxide 38 H (22-30) mmol/L Creatinine 0.60 L (0.66-1.25) mg/dL Glucose 243 H (74-99) mg/dL POC Glucose (mg/dL) (75-99) mg/dL ALT 16 L (21-72) U/L Total Creatine Kinase 32 L (55-170) U/L Troponin I 0.053 H* (0.000-0.034) ng/mL Albumin 3.3 L (3.5-5.0) g/dL 06/18/18 06/18/18 06/18/18 Range/Units 20:58 21:02 23:42 RBC (4.30-5.90) m/uL Hgb (13.0-17.5) gm/dL APTT 31.3 H (22.0-30.0) sec Sodium (137-145) mmol/L Chloride (98-107) mmol/L Carbon Dioxide (22-30) mmol/L Creatinine (0.66-1.25) mg/dL Glucose (74-99) mg/dL POC Glucose (mg/dL) 145 H (75-99) mg/dL ALT (21-72) U/L Total Creatine Kinase 22 L (55-170) U/L Troponin I 0.053 H* (0.000-0.034) ng/mL Albumin (3.5-5.0) g/dL 06/19/18 06/19/18 Range/Units 03:50 05:47 RBC (4.30-5.90) m/uL Hgb (13.0-17.5) gm/dL APTT (22.0-30.0) sec Sodium (137-145) mmol/L Chloride (98-107) mmol/L Carbon Dioxide (22-30) mmol/L Creatinine (0.66-1.25) mg/dL Glucose (74-99) mg/dL POC Glucose (mg/dL) 113 H (75-99) mg/dL ALT (21-72) U/L Total Creatine Kinase <20 L (55-170) U/L Troponin I 0.050 H* (0.000-0.034) ng/mL Albumin (3.5-5.0) g/dL Microbiology - Last 24 Hours (Table) 06/18/18 Unknown Gram Stain - Preliminary Sputum Sputum Culture - Preliminary Assessment and Plan (1) Acute respiratory failure with hypoxia Narrative/Plan: * Secondary to likely recurrent pneumonia superimposed on medical noncompliance with his supplemental oxygen vs cardiac etiology * Pulmonary has been consulted to follow the patient * Continue supplemental oxygen, scheduled and when necessary bronchodilator DuoNeb breathing treatments Current Visit: No Status: Acute Code(s): J96.01 - ACUTE RESPIRATORY FAILURE WITH HYPOXIA SNOMED Code(s): 87889120 (2) Non-STEMI (non-ST elevated myocardial infarction) Narrative/Plan: * Likely related to demand ischemia from pneumonia and respiratory failure * Previously had heart catheterization in February 2018 which showed normal coronary arteries * Continue ASA, statin therapy and beta tona and IV heparin Current Visit: Yes Status: Acute Code(s): I21.4 - NON-ST ELEVATION (NSTEMI) MYOCARDIAL INFARCTION SNOMED Code(s): 17354841 (3) Type 2 diabetes mellitus with hyperglycemia Narrative/Plan: * Blood sugars are pretty stable * Continue with insulin regimen correctional scale coverage * We'll continue to monitor Current Visit: No Status: Acute Code(s): E11.65 - TYPE 2 DIABETES MELLITUS WITH HYPERGLYCEMIA SNOMED Code(s): 219068103202821 (4) Pneumonia Narrative/Plan: * Continue treatment with Levaquin will add vancomycin to coverage * Patient does have a history of MRSA and Klebsiella found on previous BAL * Awaiting further pulmonary recommendations Current Visit: No Status: Acute Code(s): J18.9 - PNEUMONIA, UNSPECIFIED ORGANISM SNOMED Code(s): 791127104 (5) Hypertension Narrative/Plan: * Blood pressure is stable and controlled on current regimen Current Visit: No Status: Acute Code(s): I10 - ESSENTIAL (PRIMARY) HYPERTENSION SNOMED Code(s): 66978923 (6) Dysphagia Narrative/Plan: * Patient nothing by mouth * Continue with PEG tube feeds 2 cans of Glucerna 3 times a day * Patient continues to report that his medications were previously given here via mouth and that is how he takes them at home. Discussed with speech therapy and they have strongly contradicted these claims. Speech asked to reemphasize to the patient that he is NPO except sips of water and his medications are to be crushed and placed in his PEG tube * order barium swallow w video FL and consult speech Current Visit: No Status: Chronic Code(s): R13.10 - DYSPHAGIA, UNSPECIFIED SNOMED Code(s): 01436479 (7) Medical non-compliance Narrative/Plan: * Patient unable to take responsibility for his actions of not wearing his recommended home O2 at 2 L on leaving the house presented here with respiratory failure and hypoxia * Discussed with machine adjuster leader case trim the need for patient to have a prescription for more portable oxygen and to obtain a prescription from pulmonary * Patient continues to be noncompliant with speech therapy recommendations regarding taking his medications via PEG and a highly suspect that he is also noncompliant with recommendations regarding not having any oral feeds * speech therapy consulted Current Visit: Yes Status: Acute Code(s): Z91.19 - PATIENT'S NONCOMPLIANCE W OTH MEDICAL TREATMENT AND REGIMEN SNOMED Code(s): 768615134 Plan: Anticipated discharge 2-3 days
[2018-06-19 12:23] LABS: Glucose,Whole Blood 122 mg/dL (75-99)
--- NOTE | 2018-06-19 12:52 | ECHOF ---
Referral Reason:Acute Coronary Syndrome MEASUREMENTS -------- HEIGHT: 152.4 cm WEIGHT: 75.3 kg BP: 110/68 RVIDd: 3.4 cm (< 3.3) IVSd: 1.2 cm (0.6 - 1.1) LVIDd: 3.8 cm (3.9 - 5.3) LVPWd: 1.7 cm (0.6 - 1.1) IVSs: 1.7 cm LVIDs: 2.9 cm LVPWs: 1.8 cm LA Diam: 3.9 cm (2.7 - 3.8) MV EXCURSION: 23.948 mm (> 18.000) MV EF SLOPE: 177 mm/s (70 - 150) EPSS: 0.5 cm MV E Bill: 0.65 m/s MV DecT: 226 ms MV A Bill: 0.88 m/s MV E/A Ratio: 0.74 RAP: 5.00 mmHg RVSP: 46.59 mmHg FINDINGS -------- Sinus rhythm. This was a technically adequate study. The left ventricular size is normal. There is mild concentric left ventricular hypertrophy. Overa ll left ventricular systolic function is normal with, an EF between 55 - 60 %. The right ventricle is normal in size. The left atrial size is normal. The right atrial size is normal. The aortic valve is trileaflet, and appears structurally normal. No aortic stenosis or regurgitation. The mitral valve is normal. Mild mitral regurgitation is present. Tptu-tw-vbyosnbm tricuspid regurgitation present. There is mild to moderate pulmonary hypertension. The right ventricular systolic pressure, as measured by Doppler, is 46.59mmHg. There is no pulmonic regurgitation present. The aortic root size is normal. There is no pericardial effusion. CONCLUSIONS -------- 1. Sinus rhythm. 2. This was a technically adequate study. 3. The left ventricular size is normal. 4. There is mild concentric left ventricular hypertrophy. 5. Overall left ventricular systolic function is normal with, an EF between 55 - 60 %. 6. The left atrial size is normal. 7. The right atrial size is normal. 8. The aortic valve is trileaflet, and appears structurally normal. No aortic stenosis or regurgitati on. 9. Mild mitral regurgitation is present. 10. Upiv-oj-pndfqcga tricuspid regurgitation present. 11. There is mild to moderate pulmonary hypertension. 12. There is no pulmonic regurgitation present. 13. The aortic root size is normal. 14. There is no pericardial effusion. MEDICAL PLANNER: Vanessa Acevedo RDCS
--- NOTE | 2018-06-19 13:17 | P.CNPUL ---
History of Present Illness Consult date: 06/19/18 Requesting physician: Kirk Reardon Reason for consult: dyspnea, cough, hypoxemia, pneumonia, abnormal CXR/CT Chief complaint: Shortness of breath, cough, sputum production, fatigue History of present illness: This is a 53-year-old white male patient of Dr. Marsh, and into the emergency department on 06/18/2018 for evaluation of a 5 day history of increased shortness of breath, and cough, production of copious amounts of brown sputum, overall not feeling well, fatigue, lethargy. Denied any fever or chills. Patient is well-known to our service from his multiple previous admissions for recurrent episodes of pneumonia, previous bronchial wash cultures were positive for MRSA and Klebsiella pneumonia. 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 Patient follows with Dr. Barron in the pulmonary office. His most recent hospitalization was in April for bilateral multifocal pneumonia, patient was treated with a combination of Levaquin, vancomycin and Zosyn, improved and was discharged home. Patient is now on home oxygen currently at 2 L per nasal cannula around the clock. He was hypoxemic in the emergency department, sat of 82% on room air. Chest x-ray showed chronic changes with the retrocardiac infiltrate or atelectasis. Patient has been afebrile, lab work showed no leukocytosis, WBC was 6.0, hemoglobin 12.6, sodium is 135, potassium is 4.8, chloride is 92, CO2 38, BUN of 18, creatinine is 0.60, lactic acid was within normal limits at 1.2, patient had elevated troponins is 0.053, 0.053 and 0.050. States he has been having some intermittent sternal chest discomfort which last less than a minute, associated with shortness of breath, no diaphoresis, no radiation no specific exacerbating factors. EKG showed sinus tachycardia with T-wave inversion in the anterior leads. Cardiology is following. Most recently his echocardiogram from March 2018 showed preserved left ventricular systolic function with an EF of 55-60%, mild TR, trace MR, and no evidence of pulmonary hypertension. Patient had a heart catheterization on 02/20/2018 which showed normal coronary arteries. Patient was started on empiric antibiotics form of Levaquin, vancomycin was added today. Sputum culture was collected and sent, and is pending at this time. Preliminary Gram stain shows many gram-positive cocci in pairs and chains, few gram-positive bacilli and few gram-negative bacilli, final culture is in progress. Review of Systems All systems: negative Constitutional: Reports lethargy, Reports weakness, Reports weight loss, Denies chills, Denies fever Eyes: denies blurred vision, denies pain Ears, nose, mouth and throat: Denies headache, Denies sore throat Cardiovascular: Reports chest pain, Denies shortness of breath Respiratory: Reports cough with sputum, Reports dyspnea, Reports respiratory infections, Denies cough Gastrointestinal: Denies abdominal pain, Denies diarrhea, Denies nausea, Denies vomiting Musculoskeletal: Denies myalgias Integumentary: Denies pruritus, Denies rash Neurological: Denies numbness, Denies weakness Psychiatric: Denies anxiety, Denies depression Endocrine: Denies fatigue, Denies weight change Past Medical History Past Medical History: Chest Pain / Angina, CVA/TIA, Diabetes Mellitus, Deep Vein Thrombosis (DVT), GERD/Reflux, Hyperlipidemia, Hypertension, Musculoskeletal Disorder, Pneumonia, Pulmonary Embolus (PE), Syncope Additional Past Medical History / Comment(s): CVA (06/2016), RIGHT SIDED WEAKNESS, HAS PEG TUBE WITH GLUCERNA 2.5 -TAKES 5 CANS DAILY. Purred foods. HX OF ASPIRATION PNEUMONIA, LUMBAR STENOSIS. , HX IBS. COLON POLYPS, CATARACTS, RIGHT SIDE OF BODY IS TEMPERATURE INTOLERANT. , NEUROPATHY OF HANDS & FEET, HAND TREMORS., BACK PAIN. History of Any Multi-Drug Resistant Organisms: MRSA Date of last positivie culture/infection: 03/26/18 MDRO Source:: [facility] Past Surgical History: Appendectomy, Cholecystectomy, Heart Catheterization, Orthopedic Surgery Additional Past Surgical History / Comment(s): EXPLORATORY LAPAROTOMY, FUSION L4 -L5, COLONOSCOPY, PEG tube. , REPAIR HIATAL HERNIA, CARPAL TUNNEL SURG.bronchoscopy Past Anesthesia/Blood Transfusion Reactions: No Reported Reaction Additional Past Anesthesia/Blood Transfusion Reaction / Comment(s): COUGHS WHEN HE LIES FLAT Past Psychological History: Anxiety, Depression Smoking Status: Never smoker Past Alcohol Use History: None Reported Past Drug Use History: None Reported - Past Family History Father History Unknown: Yes Family Medical History: No Reported History Mother Family Medical History: Cancer, Pulmonary Embolus Medications and Allergies Home Medications Medication Instructions Recorded Confirmed Type Metoprolol Tartrate [Lopressor] 12.5 mg PO DAILY 10/13/16 06/18/18 History Simvastatin [Zocor] 40 mg PO HS 10/13/16 06/18/18 History Omeprazole 40 mg PO BID 06/13/17 06/18/18 History Insulin Aspart [NovoLOG] See Protocol SQ AC-TID PRN 09/19/17 06/18/18 History Ranitidine HCl [Zantac] 300 mg PO DAILY 10/25/17 06/18/18 History EPINEPHrine (Auto Inject) [Epipen] 0.3 mg IM ONCE PRN 12/25/17 06/18/18 History Loratadine [Claritin] 10 mg PO DAILY 12/25/17 06/18/18 History Pioglitazone [Actos] 30 mg PO DAILY 03/28/18 06/18/18 History Albuterol Inhaler [Ventolin Hfa 1 - 2 puff INHALATION RT-Q6H PRN 04/26/18 History Inhaler] Escitalopram [Lexapro] 20 mg PO DAILY 04/26/18 06/18/18 History Gabapentin 600 mg PO QID 04/26/18 06/18/18 History Insulin Glargine,Hum.rec.anlog 15 unit SQ HS 04/26/18 06/18/18 History [Basaglar Kwikpen U-100] traZODone HCL [Desyrel] 100 mg PO HS 04/26/18 06/18/18 History Cyclobenzaprine [Flexeril] 10 mg PO TID PRN 05/27/18 06/18/18 History Ipratropium/Albuterol Sulfate 1 puff INHALATION RT-Q6H PRN 05/27/18 06/18/18 History [Combivent Respimat Inhaler] Budesonide/Formoterol Fumarate 1 puff INHALATION RT-BID 06/18/18 06/18/18 History [Symbicort 160-4.5 Mcg Inhaler] hydrOXYzine HCL [Atarax] 25 mg PO DAILY 06/18/18 06/18/18 History Allergies Allergy/AdvReac Type Severity Reaction Status Date / Time venom-honey bee Allergy Anaphylaxis Verified 06/18/18 15:11 [bee venom (honey bee)] metformin AdvReac Diarrhea Verified 06/18/18 15:11 vancomycin AdvReac kidneys Verified 06/18/18 15:11 shut down Physical Exam Vitals: Vital Signs Temp Pulse Pulse Pulse Resp BP BP 06/19/18 09:17 104 H 06/19/18 09:09 100 06/19/18 08:00 111 H 20 06/19/18 04:05 98.2 F 108 H 19 110/68 06/19/18 00:15 108 H 20 06/19/18 00:10 97.7 F 94 20 125/74 06/18/18 20:38 06/18/18 20:10 97.7 F 108 H 110 H 20 124/63 06/18/18 18:38 98.8 F 110 H 20 125/72 06/18/18 16:12 106 H 06/18/18 15:58 104 H 06/18/18 15:50 107 H 20 111/78 06/18/18 14:42 98.3 F 113 H 18 108/75 Pulse Ox 06/19/18 09:17 06/19/18 09:09 06/19/18 08:00 06/19/18 04:05 94 L 06/19/18 00:15 06/19/18 00:10 94 L 06/18/18 20:38 92 L 06/18/18 20:10 93 L 06/18/18 18:38 92 L 06/18/18 16:12 06/18/18 15:58 06/18/18 15:50 95 06/18/18 14:42 82 L Intake and Output 06/18/18 06/19/18 06/19/18 22:59 06:59 14:59 Intake Total 65.1 125 Balance 65.1 125 Intake: Intake, IV Titration 65.1 Amount Heparin Sod,Pork in 0.45% 65.1 NaCl 25,000 unit In 0.45 % NaCl 1 250ml.bag @ 12 UNITS/KG/HR 9.3 mls/hr IV .Q24H [facility] Rx#:[id number] Oral 125 Other: Voiding Method Toilet Toilet # Voids 1 Weight 77.564 kg 75.6 kg 75.6 kg GENERAL EXAM: Alert, is a 53-year-old white male comfortable in no apparent distress. HEAD: Normocephalic/atraumatic. EYES: Normal reaction of pupils, equal size. Conjunctiva pink, sclera white. NOSE: Clear with pink turbinates. THROAT: No erythema or exudates. NECK: No masses, no JVD, no thyroid enlargement, no adenopathy. CHEST: No chest wall deformity. Symmetrical expansion. LUNGS: Equal air entry with some crackles at the bases, no wheezing CVS: Regular rate and rhythm, normal S1 and S2, no gallops, no murmurs, no rubs ABDOMEN: Soft, nontender. No hepatosplenomegaly, normal bowel sounds, no guarding or rigidity. PEG tube present EXTREMITIES: No clubbing, no edema, no cyanosis, 2+ pulses and upper and lower extremities. MUSCULOSKELETAL: Muscle strength and tone normal. SPINE: No scoliosis or deformity SKIN: No rashes CENTRAL NERVOUS SYSTEM: Alert and oriented -3. No focal deficits, tone is normal in all 4 extremities. PSYCHIATRIC: Alert and oriented -3. Appropriate affect. Intact judgment and insight. Results - Laboratory Findings CBC and BMP: 06/18/18 15:03 06/18/18 15:03 PT/INR, D-dimer PT 9.7 sec (9.0-12.0) 06/18/18 15:03 INR 0.9 (<1.2) 06/18/18 15:03 Abnormal lab findings: Abnormal Labs 06/18/18 06/18/18 06/18/18 15:03 15:03 15:03 RBC 4.22 L Hgb 12.6 L APTT Sodium 135 L Chloride 92 L Carbon Dioxide 38 H Creatinine 0.60 L Glucose 243 H POC Glucose (mg/dL) ALT 16 L Total Creatine Kinase 32 L Troponin I 0.053 H* Albumin 3.3 L 06/18/18 06/18/18 06/18/18 20:58 21:02 23:42 RBC Hgb APTT 31.3 H Sodium Chloride Carbon Dioxide Creatinine Glucose POC Glucose (mg/dL) 145 H ALT Total Creatine Kinase 22 L Troponin I 0.053 H* Albumin 06/19/18 06/19/18 06/19/18 03:50 05:47 12:00 RBC Hgb APTT Sodium Chloride Carbon Dioxide Creatinine Glucose POC Glucose (mg/dL) 113 H 122 H ALT Total Creatine Kinase <20 L Troponin I 0.050 H* Albumin - Diagnostic Findings Chest x-ray: report reviewed, image reviewed Additional studies: EKG reviewed Assessment and Plan Plan: Assessment: #1. Acute on chronic hypoxemic respiratory failure secondary to underlying pneumonia, possibly MRSA related and gram-negative organism related based on the previous bronch wash cultures #2. Dyspnea, fatigue, cough with phlegm production related to the above #3. Elevated troponins, rule out non-ST elevated NC #4. History of left brain stem CVA in 2016 with residual right-sided weakness, chronic dysphagia and chronic aspiration #5. Chronic PEG tube with tube feedings for dysphagia. Patient does eat by mouth, follows with the speech therapist on an outpatient basis #6. Multiple previous episodes of pneumonia #7. Hypertension, hyperlipidemia #8. History of questionable PE and DVT, patient had completed anticoagulation therapy #9. Irritable bowel syndrome #10. Diabetes mellitus type 2 Plan: Consult ID service for antibiotic management, was started on Levaquin, vancomycin was added. Will await results of final sputum cultures, no plans for bronchoscopy at this time. Continue with nebulized bronchodilators. Patient is nothing by mouth, will have speech therapy see him while he is in the hospital. I performed a history & physical examination of the patient and discussed their management with my nurse practitioner, Adriana Tena. I reviewed the nurse practitioner's note and agree with the documented findings and plan of care. Lung sounds are basilar crackles. The findings and the impression was discussed with the patient. I attest to the documentation by the nurse practitioner. Time with Patient: Greater than 30
[2018-06-19 14:42] LABS: Hemoglobin A1C 8.4 % (4.0-6.0)
--- NOTE | 2018-06-19 14:56 | FL ---
EXAMINATION TYPE: FL barium swallow w video DATE OF EXAM: 06/19/2018 COMPARISON: NONE HISTORY: Brain stem infarct, aspiration pneumonia TECHNIQUE: Fluoroscopy. FINDINGS: Fluoroscopic guidance was provided for the procedure performed in conjunction with the [facility] pathology department. Please see complete report forthcoming from the Speech Pathology departmen t. Various consistencies from thin liquid to solids were administered. Fluoroscopy time 2 minutes 9 seconds Number of images: 0. No aspiration or penetration was evident. There is pooling within the vallecula with consistencies greater than Honey thick. There is delayed transit through the hypopharynx to the proximal esophagus. Residual were cleared wit h liquids. IMPRESSION: 1. No aspiration or penetration. 2. Delayed transit through the hypopharynx to the esophagus. 3. Residuals cleared with thin liquids.
[2018-06-19] MEDS: VANCOMYCIN 1,250 MG in SODIUM CHLORIDE 0.9% 250 ML IVPB SCH ×2 (15:21→21:35)
[2018-06-19 17:12] LABS: Glucose,Whole Blood 104 mg/dL (75-99)
[2018-06-19] MEDS: LEVOFLOXACIN 750MG-D5W PMX 750 MG in DEXTROSE/WATER 1 150ML.BAG IVPB SCH (20:01)
[2018-06-19 20:44] LABS: Glucose,Whole Blood 123 mg/dL (75-99)
[2018-06-19] MEDS: ATORVASTATIN 20 MG TAB PO SCH (20:53)
[2018-06-19] MEDS: METOPROLOL TARTRATE 50 MG TAB PO SCH (20:53)
[2018-06-19] MEDS: INSULIN DETEMIR 100 UNIT/ML 10 ML VIAL SQ SCH (20:53)
[2018-06-19] MEDS: HEPARIN SODIUM,PORCINE 5,000 UNIT/ML 1 ML VIAL SQ SCH (20:53)
[2018-06-19] MEDS: traZODone HCL 100 MG TAB PO SCH (20:54)
[2018-06-19] MEDS: CYCLOBENZAPRINE 10 MG TAB PO PRN (20:54)
--- NOTE | 2018-06-19 22:25 | CONS ---
CONSULTATION HISTORY: Mr. Fredrick Corona is a 53-year-old gentleman who has been admitted to the hospital with complaints of shortness of breath, cough and sputum production. This gentleman has had a history of stroke and has some difficulty in swallowing and has a PEG tube. He has a history of MRSA pneumonia in the in the past. He came in with cough and sputum production. He also complained of some lightheadedness. Denies any chest pain or shortness of breath at the time of my evaluation. His troponin value was about 0.05 and another repeat value was also in the same range. I was asked to see him regarding troponin elevation. He is asymptomatic at the time of my evaluation. I reviewed the data in this patient and interestingly in February and March of 2018 he had a cardiac cath that revealed no obstructive CAD and also he had an echocardiogram that revealed normal systolic function. Cardiac catheterization was performed by Dr. Pisano on 02/20/2018 and this was brought done from the right femoral approach. This patient had no significant obstructive CAD. The right coronary artery was a dominant vessel. LV gram was not performed, but by echocardiogram systolic function is normal. At the time of my evaluation, patient is resting comfortably without symptoms. PAST MEDICAL HISTORY: 1. History of CVA with a PEG tube. Patient also has some swallowing issues. 2. Hyperlipidemia. 3. Hypertension. 4. History of type 2 diabetes mellitus with neuropathy, on gabapentin. PHYSICAL EXAMINATION: Blood pressure is 124/70, pulse rate is about 888 per minute and regular. HEENT unremarkable. Fundus was not examined by me. Neck is supple. There is no JVD. I do not hear a carotid bruit. Heart exam reveals S1, S2 with a short systolic murmur at the left sternal border. Lungs are clear. Abdomen is soft. Lower extremities reveal normal pulses. No edema. Central nervous system assessment was not performed. EKG revealed a sinus mechanism with nonspecific ST-T changes. IMPRESSION: 1. Atypical chest pain and troponin elevation, not considered myocardial injury. 2. History of unremarkable cardiac cath and normal LV function by coronary angiography and echocardiography performed in February in March of this year. 3. History of stroke with a PEG tube and swallowing issues. 4. Atypical chest pain. 5. Probably bronchitis, rule out pneumonia. RECOMMENDATIONS: From a cardiac standpoint, I have no specific recommendations. I will increase the Lopressor to optimize his heart rate. Will discontinue nitro paste and increase activity. He does not require any further intervention from a cardiac standpoint. I will see the patient as needed during his hospitalization. Thank you very much for the consult. DORI / CARLA: [id number] /
--- NOTE | 2018-06-20 00:20 | P.CONS ---
History of Present Illness - Reason for Consult Consult date: 06/19/18 - Chief Complaint Shortness of breath - History of Present Illness Pleasant 53-year-old male known to infectious disease service due to his prior hospitalizations regarding his significant stroke the brainstem the resulted in difficulties with swallowing. He's had pneumonia requiring antibiotic therapy in the past and esophageal stricture that required a dilatation procedure. Patient was started to have some improvement of his swallow and was working well with the speech pathologist. However he presents with significant fever or shortness of breath cough and abnormal T on his chest x-ray CONSISTENT with pneumonia concerns to an aspiration given the fact that he does due to feeds by a bolus method 4 times throughout the day. The patient does not recall any specific aspiration event. He however does relate a sudden onset of feeling short of breath cough and is having a copious amount of sputum production The patient started to feel somewhat better since arrival to hospital. In March klebsiella and MRSA were isolated from his sputum. Patient relates this evening is feeling somewhat better and is very pleased that the video fluoroscopic swallow study did not reveal evidence of extensive amounts of aspiration or penetration. Review of Systems Patient was feeling better now than admission HEENT:Denies headache or acute visual change. Denies sinus or mouth discomforts. Denies neck stiffness or pain. Denies significant oral cavity pain. Denies difficulty on swallowing. Lungs: Patient has cough copiousness of sputum production that is a dark lane to brown in color in nature no evidence of any hemoptysis Cardiovascular: Denies chest pain or chest pressure no syncope, did have dyspnea on exertion and shortness of breath Gastrointestinal:Denies nausea, vomiting, diarrhea, constipation, hematemesis, melena, hematochezia. No no significant change of bowel habit noticed. Tolerating the tube feeds well Musculoskeletal: denies significant myalgias or arthralgias. No new joint swelling. Denies new back pain. Skin: Denies new rash or lesions. No new ulcers or wounds are related.. Neuro: No headaches weakness is improving over time no recent falls no current seizures Psychiatric:Denies anxiety or depression. Endocrine: Has some mild fatigue has had weight loss since his stroke and is starting to recover Past Medical History Past Medical History: Chest Pain / Angina, CVA/TIA, Diabetes Mellitus, Deep Vein Thrombosis (DVT), GERD/Reflux, Hyperlipidemia, Hypertension, Musculoskeletal Disorder, Pneumonia, Pulmonary Embolus (PE), Syncope Additional Past Medical History / Comment(s): CVA (06/2016), RIGHT SIDED WEAKNESS, HAS PEG TUBE WITH GLUCERNA 2.5 -TAKES 5 CANS DAILY. Purred foods. HX OF ASPIRATION PNEUMONIA, LUMBAR STENOSIS. , HX IBS. COLON POLYPS, CATARACTS, RIGHT SIDE OF BODY IS TEMPERATURE INTOLERANT. , NEUROPATHY OF HANDS & FEET, HAND TREMORS., BACK PAIN. History of Any Multi-Drug Resistant Organisms: MRSA Year Discovered:: 03/26/18 MDRO Source:: [facility] Past Surgical History: Appendectomy, Cholecystectomy, Heart Catheterization, Orthopedic Surgery Additional Past Surgical History / Comment(s): EXPLORATORY LAPAROTOMY, FUSION L4 -L5, COLONOSCOPY, PEG tube. , REPAIR HIATAL HERNIA, CARPAL TUNNEL SURG.bronchoscopy Past Anesthesia/Blood Transfusion Reactions: No Reported Reaction Additional Past Anesthesia/Blood Transfusion Reaction / Comm: COUGHS WHEN HE LIES FLAT Past Psychological History: Anxiety, Depression Additional Psychological History / Comment(s): Patient is a lifelong nonsmoker. He drinks alcohol rarely. 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 Smoking Status: Never smoker Past Alcohol Use History: None Reported Past Drug Use History: None Reported - Past Family History Father History Unknown: Yes Family Medical History: No Reported History Mother Family Medical History: Cancer, Pulmonary Embolus Medications and Allergies Home Medications and Allergies Comment(s): Current Medications Acetaminophen (Tylenol Tab) 650 mg PO Q4HR PRN PRN Reason: Pain Albuterol/Ipratropium (Duoneb 0.5 Mg-3 Mg/3 Ml Soln) 3 ml INHALATION RT-QID PRN PRN Reason: Shortness Of Breath Or Wheezing Last Admin: 06/19/18 20:06 Dose: 3 ml Aspirin (Aspirin) 325 mg PO DAILY [facility] Last Admin: 06/19/18 08:06 Dose: 325 mg Atorvastatin Calcium (Lipitor) 20 mg PO HS [facility] Last Admin: 06/19/18 20:53 Dose: 20 mg Budesonide/Formoterol Fumarate (Symbicort 160-4.5 Mcg Inhaler) 1 puff INHALATION RT-BID [facility] Last Admin: 06/19/18 20:06 Dose: 1 puff Cyclobenzaprine HCl (Flexeril) 10 mg PO TID PRN PRN Reason: Muscle Pain Last Admin: 06/19/18 20:54 Dose: 10 mg Escitalopram Oxalate (Lexapro) 20 mg PO DAILY [facility] Last Admin: 06/19/18 08:07 Dose: 20 mg Famotidine (Pepcid) 40 mg PO DAILY [facility] Last Admin: 06/19/18 08:07 Dose: 40 mg Gabapentin (Neurontin) 600 mg PO QID [facility] Last Admin: 06/19/18 20:54 Dose: 600 mg Heparin Sodium (Porcine) (Heparin) 5,000 unit SQ Q12HR [facility] Last Admin: 06/19/18 20:53 Dose: 5,000 unit Hydroxyzine HCl (Atarax) 25 mg PO DAILY [facility] Last Admin: 06/19/18 08:07 Dose: 25 mg Levofloxacin 750 mg/ IV (Solution) 150 mls @ 100 mls/hr IVPB Q24H [facility] Last Admin: 06/19/18 20:01 Dose: 100 mls/hr Vancomycin HCl 1,250 mg/ (Sodium Chloride) 250 mls @ 125 mls/hr IVPB Q8H [facility] Last Admin: 06/19/18 21:35 Dose: 125 mls/hr Insulin Aspart (Novolog) 0 unit SQ [facility]; Protocol Last Admin: 06/19/18 20:50 Dose: Not Given Insulin Detemir (Levemir) 15 unit SQ [facility] Last Admin: 06/19/18 20:53 Dose: Not Given Metoprolol Tartrate (Lopressor) 50 mg PO BID [facility] Last Admin: 06/19/18 20:53 Dose: 50 mg Miscellaneous Information (Vancomycin Trough Due) 1 each MISCELLANE ONCE ONE Stop: 06/20/18 11:01 Nitroglycerin (Nitrostat) 0.4 mg SUBLINGUAL Q5M PRN PRN Reason: Chest Pain Pantoprazole Sodium (Protonix) 40 mg PO AC-BID [facility] Last Admin: 06/19/18 15:21 Dose: 40 mg Trazodone HCl (Desyrel) 100 mg PO [facility] Last Admin: 06/19/18 20:54 Dose: 100 mg Home Medications Medication Instructions Recorded Confirmed Type Metoprolol Tartrate [Lopressor] 12.5 mg PO DAILY 10/13/16 06/18/18 History Simvastatin [Zocor] 40 mg PO HS 10/13/16 06/18/18 History Omeprazole 40 mg PO BID 06/13/17 06/18/18 History Insulin Aspart [NovoLOG] See Protocol SQ AC-TID PRN 09/19/17 06/18/18 History Ranitidine HCl [Zantac] 300 mg PO DAILY 10/25/17 06/18/18 History EPINEPHrine (Auto Inject) [Epipen] 0.3 mg IM ONCE PRN 12/25/17 06/18/18 History Loratadine [Claritin] 10 mg PO DAILY 12/25/17 06/18/18 History Pioglitazone [Actos] 30 mg PO DAILY 03/28/18 06/18/18 History Albuterol Inhaler [Ventolin Hfa 1 - 2 puff INHALATION RT-Q6H PRN 04/26/18 History Inhaler] Escitalopram [Lexapro] 20 mg PO DAILY 04/26/18 06/18/18 History Gabapentin 600 mg PO QID 04/26/18 06/18/18 History Insulin Glargine,Hum.rec.anlog 15 unit SQ HS 04/26/18 06/18/18 History [Basaglar Kwikpen U-100] traZODone HCL [Desyrel] 100 mg PO HS 04/26/18 06/18/18 History Cyclobenzaprine [Flexeril] 10 mg PO TID PRN 05/27/18 06/18/18 History Ipratropium/Albuterol Sulfate 1 puff INHALATION RT-Q6H PRN 05/27/18 06/18/18 History [Combivent Respimat Inhaler] Budesonide/Formoterol Fumarate 1 puff INHALATION RT-BID 06/18/18 06/18/18 History [Symbicort 160-4.5 Mcg Inhaler] hydrOXYzine HCL [Atarax] 25 mg PO DAILY 06/18/18 06/18/18 History Allergies Allergy/AdvReac Type Severity Reaction Status Date / Time venom-honey bee Allergy Anaphylaxis Verified 06/18/18 15:11 [bee venom (honey bee)] metformin AdvReac Diarrhea Verified 06/18/18 15:11 vancomycin AdvReac kidneys Verified 06/18/18 15:11 shut down Physical Exam Vitals: Vital Signs Temp Pulse Pulse Resp BP Pulse Ox 06/19/18 20:17 101 H 06/19/18 20:06 101 H 06/19/18 19:50 98.7 F 103 H 18 127/78 92 L 06/19/18 16:00 108 H 17 121/77 95 06/19/18 12:00 110 H 18 127/75 95 06/19/18 09:17 104 H 06/19/18 09:09 100 06/19/18 08:00 111 H 20 06/19/18 04:05 98.2 F 108 H 19 110/68 94 L 06/19/18 00:15 108 H 20 06/19/18 00:10 97.7 F 94 20 125/74 94 L Intake and Output 06/19/18 06/19/18 06/20/18 14:59 22:59 06:59 Intake Total 605 1190 Balance 605 1190 Intake: IV 560 0.9 160 Levofloxacin 750Mg-D5w 150 Pmx 750 mg In Dextrose/ Water 1 150ml.bag @ 100 mls/hr IVPB Q24H [facility] Rx#: [id number] Vancomycin 1,250 mg In 250 Sodium Chloride 0.9% 250 ml @ 125 mls/hr IVPB Q8H [facility] Rx#:[id number] Oral 605 150 Tube Feeding 480 Other: Weight 75.6 kg Pleasant 53-year-old male comfortable less short of breath still coughing up large amounts of copious secretions HEENT: Anicteric conjunctiva are pink and moist nasal mucosa grossly intact without significant lesions, there is no thrush. Neck: The neck is supple without significant lymphadenopathy or thyromegaly. Lungs: Symmetrical air entry is noted. There is evidence of bronchial sounds with dullness since [place] to the left base few expiratory wheezes are scattered Heart: Regular rate and rhythm with an audible S1-S2, no S3 no S4. There is no significant murmur click or rub, PMI was nondisplaced. Abdomen: Positive bowel sounds soft and nontender without palpable masses or organomegaly. There was no guarding or rebound. PEG site intact without tenderness or drainage Extremities: The upper extremities have excellent pulses they are symmetric, no significant petechiae or telangiectasia. No splinter hemorrhages were noted. The lower extremities are free from significant edema. The peripheral pulses were 2+ and symmetric. Neuro: Awake alert oriented to person place and time. Does not appear significant localizing deficits Results CBC & Chem 7: 06/18/18 15:03 06/18/18 15:03 Labs: Abnormal Lab Results - Last 24 Hours (Table) 06/18/18 06/18/18 06/19/18 Range/Units 20:58 23:42 03:50 APTT 31.3 H (22.0-30.0) sec POC Glucose (mg/dL) (75-99) mg/dL Hemoglobin A1c 8.4 H (4.0-6.0) % Total Creatine Kinase <20 L (55-170) U/L Troponin I 0.050 H* (0.000-0.034) ng/mL 06/19/18 06/19/18 06/19/18 Range/Units 05:47 12:00 17:05 APTT (22.0-30.0) sec POC Glucose (mg/dL) 113 H 122 H 104 H (75-99) mg/dL Hemoglobin A1c (4.0-6.0) % Total Creatine Kinase (55-170) U/L Troponin I (0.000-0.034) ng/mL 06/19/18 Range/Units 20:42 APTT (22.0-30.0) sec POC Glucose (mg/dL) 123 H (75-99) mg/dL Hemoglobin A1c (4.0-6.0) % Total Creatine Kinase (55-170) U/L Troponin I (0.000-0.034) ng/mL Microbiology - Last 24 Hours (Table) 06/18/18 15:03 Blood Culture - Preliminary Blood No Growth after 24 hours 06/18/18 Unknown Gram Stain - Preliminary Sputum Sputum Culture - Preliminary Laboratory Results WBC 6.0 k/uL (3.8-10.6) 06/18/18 15:03 RBC 4.22 m/uL (4.30-5.90) L 06/18/18 15:03 Hgb 12.6 gm/dL (13.0-17.5) L 06/18/18 15:03 Hct 40.5 % (39.0-53.0) 06/18/18 15:03 MCV 95.8 fL (80.0-100.0) 06/18/18 15:03 MCH 29.8 pg (25.0-35.0) 06/18/18 15:03 MCHC 31.1 g/dL (31.0-37.0) 06/18/18 15:03 RDW 14.5 % (11.5-15.5) 06/18/18 15:03 Plt Count 219 k/uL (150-450) 06/18/18 15:03 Neutrophils % 73 % 06/18/18 15:03 Lymphocytes % 17 % 06/18/18 15:03 Monocytes % 7 % 06/18/18 15:03 Eosinophils % 1 % 06/18/18 15:03 Basophils % 0 % 06/18/18 15:03 Neutrophils # 4.4 k/uL (1.3-7.7) 06/18/18 15:03 Lymphocytes # 1.0 k/uL (1.0-4.8) 06/18/18 15:03 Monocytes # 0.4 k/uL (0-1.0) 06/18/18 15:03 Eosinophils # 0.0 k/uL (0-0.7) 06/18/18 15:03 Basophils # 0.0 k/uL (0-0.2) 06/18/18 15:03 PT 9.7 sec (9.0-12.0) 06/18/18 15:03 INR 0.9 (<1.2) 06/18/18 15:03 APTT 29.3 sec (22.0-30.0) 06/19/18 06:57 Sodium 135 mmol/L (137-145) L 06/18/18 15:03 Potassium 4.8 mmol/L (3.5-5.1) 06/18/18 15:03 Chloride 92 mmol/L (98-107) L 06/18/18 15:03 Carbon Dioxide 38 mmol/L (22-30) H 06/18/18 15:03 Anion Gap 5 mmol/L 06/18/18 15:03 BUN 18 mg/dL (9-20) 06/18/18 15:03 Creatinine 0.60 mg/dL (0.66-1.25) L 06/18/18 15:03 Est GFR (CKD-EPI)AfAm >90 (>60 ml/min/1.73 sqM) 06/18/18 15:03 Est GFR (CKD-EPI)NonAf >90 (>60 ml/min/1.73 sqM) 06/18/18 15:03 Glucose 243 mg/dL (74-99) H 06/18/18 15:03 POC Glucose (mg/dL) 123 mg/dL (75-99) H 06/19/18 20:42 POC Glu [employer] Operator ID Ewa Murray 06/19/18 20:[address] Glu mg/dL 194 06/18/18 20:58 Hemoglobin A1c 8.4 % (4.0-6.0) H 06/18/18 20:58 Plasma Lactic Acid Calin 1.2 mmol/L (0.7-2.0) 06/18/18 15:03 Calcium 9.0 mg/dL (8.4-10.2) 06/18/18 15:03 Magnesium 1.7 mg/dL (1.6-2.3) 06/18/18 15:03 Total Bilirubin 0.4 mg/dL (0.2-1.3) 06/18/18 15:03 AST 19 U/L (17-59) 06/18/18 15:03 ALT 16 U/L (21-72) L 06/18/18 15:03 Alkaline Phosphatase 84 U/L (38-126) 06/18/18 15:03 Total Creatine Kinase <20 U/L (55-170) L 06/19/18 03:50 CK-MB (CK-2) 1.3 ng/mL (0.0-2.4) 06/19/18 03:50 CK-MB (CK-2) Rel Index 06/19/18 03:50 Troponin I 0.050 ng/mL (0.000-0.034) H* 06/19/18 03:50 Total Protein 6.9 g/dL (6.3-8.2) 06/18/18 15:03 Albumin 3.3 g/dL (3.5-5.0) L 06/18/18 15:03 Triglycerides 104 mg/dL (<150) 06/19/18 03:50 Cholesterol 124 mg/dL (<200) 06/19/18 03:50 LDL Cholesterol, Calc 52 mg/dL (0-99) 06/19/18 03:50 HDL Cholesterol 51 mg/dL (40-60) 06/19/18 03:50 Microbiology 06/18/18 15:03 Blood Blood Culture - Preliminary No Growth after 24 hours 06/18/18 Unknown Sputum Gram Stain - Preliminary 06/18/18 Unknown Sputum Sputum Culture - Preliminary Assessment and Plan (1) Acute respiratory failure with hypoxia Narrative/Plan: 53-year-old male who has a long-standing history of multiple medical troubles that includes diabetes mellitus with multiple complications, brainstem stroke with some significant ongoing recovery. There are concerns to an aspiration event resulting in the current pneumonia is seen by chest x-ray with the left- sided infiltrate. Fortunately patient is showing ongoing improvement in his having significant mobilization of secretions was somewhat copious amounts of sputum production. He is definitely feeling better. Oxygen levels are improving. With his history of Klebsiella and MRSA antibiotic therapy has been started with Levaquin and vancomycin which will be continued for now unclear with the vancomycin ALLERGY was tolerating it well this time. We will continue this for now for coverage of other pathogens of aspiration, he does not have a history of pseudomonal infection. He has done well with the video swallow study and hopefully with appropriate maneuvers will be able to have some improvement of his oral intake, is of some concern given the current pneumonia. He does feed with bolus feeds and be important that he does not feed and then lay down to sleep. Cultures are being monitored will further help antibiotic therapy. Current Visit: No Status: Acute Code(s): J96.01 - ACUTE RESPIRATORY FAILURE WITH HYPOXIA SNOMED Code(s): 76298283 (2) Non-STEMI (non-ST elevated myocardial infarction) Current Visit: Yes Status: Acute Code(s): I21.4 - NON-ST ELEVATION (NSTEMI) MYOCARDIAL INFARCTION SNOMED Code(s): 95001849
[2018-06-20] MEDS: AMPICILLIN-SULBACTAM 1.5 GM in SODIUM CHLORIDE 0.9% 50 ML IVPB SCH ×4 (00:56→20:22)
[2018-06-20] MEDS: VANCOMYCIN 1,250 MG in SODIUM CHLORIDE 0.9% 250 ML IVPB SCH ×3 (03:58→23:26)
[2018-06-20 06:05] LABS: Glucose,Whole Blood 147 mg/dL (75-99)
[2018-06-20] MEDS: INSULIN ASPART 100 UNIT/ML 1 ML 10 ML VIAL SQ SCH ×4 (06:17→20:36)
[2018-06-20 07:07] LABS: Anion Gap 3 mmol/L; Blood Urea Nitrogen 12 mg/dL (9-20); Calcium 8.7 mg/dL (8.4-10.2); Carbon Dioxide 40 mmol/L (22-30); Chloride 95 mmol/L (98-107); Glucose 153 mg/dL (74-99); Potassium 4.5 mmol/L (3.5-5.1); Sodium 138 mmol/L (137-145)
[2018-06-20 07:10] LABS: Basophils % (A) 0 %; Eosinophils # (A) 0.1 k/uL (0-0.7); Eosinophils % (A) 1 %; HCT 35.7 % (39.0-53.0); HGB 11.2 gm/dL (13.0-17.5); Hypochromasia Slight; Lymphocytes # (A) 0.7 k/uL (1.0-4.8); Lymphocytes % (A) 17 %; MCH 30.7 pg (25.0-35.0); MCHC 31.5 g/dL (31.0-37.0); MCV 97.3 fL (80.0-100.0); Mean Platelet Volume 6.6; Monocytes # (A) 0.3 k/uL (0-1.0); Monocytes % (A) 7 %; Neutrophils # (A) 3.2 k/uL (1.3-7.7); Neutrophils % (A) 72 %; Platelet Count 192 k/uL (150-450); RBC 3.66 m/uL (4.30-5.90); RDW 14.2 % (11.5-15.5); WBC 4.4 k/uL (3.8-10.6)
[2018-06-20] MEDS: SYMBICORT 160-4.5 MCG INHALER INHALATION SCH ×2 (08:07→20:11)
[2018-06-20] MEDS: GABAPENTIN 300 MG CAP PO SCH ×4 (10:13→20:36)
[2018-06-20] MEDS: METOPROLOL TARTRATE 50 MG TAB PO SCH ×2 (10:13→20:22)
[2018-06-20] MEDS: hydrOXYzine HCL 25 MG TAB PO SCH (10:13)
[2018-06-20] MEDS: ASPIRIN 325 MG TAB PO SCH (10:13)
[2018-06-20] MEDS: HEPARIN SODIUM,PORCINE 5,000 UNIT/ML 1 ML VIAL SQ SCH ×2 (10:13→20:22)
[2018-06-20] MEDS: ESCITALOPRAM 20 MG TAB PO SCH (10:13)
[2018-06-20] MEDS: FAMOTIDINE 20 MG TAB PO SCH (10:13)
[2018-06-20] MEDS: PANTOPRAZOLE 40 MG TABLET PO SCH ×2 (10:13→20:22)
--- NOTE | 2018-06-20 10:51 | P.PN ---
Subjective Progress Note Date: 06/20/18 Patient feeling much better today, reports a notable decrease in the amount of sputum is coughing up. Patient is feeling better about his improved video swallow noted that he is able to have pleasure pured feeds. Afebrile overnight , no acute events overnight Objective - Vital Signs Vital signs: Vital Signs Temp 97.2 F L 06/20/18 04:00 Pulse 92 06/20/18 04:00 Resp 18 06/20/18 04:00 BP 102/65 06/20/18 04:00 Pulse Ox 90 L 06/20/18 04:00 Intake & Output 06/19/18 06/20/18 06/20/18 18:59 06:59 18:59 Intake Total 995 1615 Balance 995 1615 Weight 75.6 kg 75.5 kg Intake: IV 895 0.9 320 Ampicillin-Sulbactam 1.5 50 gm In Sodium Chloride 0.9 % 50 ml @ 100 mls/hr IVPB Q6H [facility] Rx#:[id number] Levofloxacin 750Mg-D5w 150 Pmx 750 mg In Dextrose/ Water 1 150ml.bag @ 100 mls/hr IVPB Q24H [facility] Rx#: [id number] Vancomycin 1,250 mg In 375 Sodium Chloride 0.9% 250 ml @ 125 mls/hr IVPB Q8H [facility] Rx#:[id number] Oral 755 Tube Feeding 240 720 Other: Voiding Method Toilet - Exam Constitutional: Mild distress, conversant, pleasant Eyes: Anicteric sclerae, moist conjunctiva, no lid-lag, PERRLA ENMT: NC/AT,Oropharynx clear, no erythema, exudates Neck:Supple, FROM, no masses, or JVD, No carotid bruits; No thyromegaly Lungs: Diminished in the bases bibasilar, much improved aeration, not as course as previously auscultated Cardiovascular: Regular rate regular rhythm, No murmurs, gallops, or rubs no peripheral edema Abdominal: Soft Nontender, nom distended, no guarding, no rebound or rigidity, Normoactive bowel sounds No hepatomegaly, No splenomegaly, No palpable mass No abdominal wall hernia noted Skin: Normal temperature, tone, texture, turgor, No induration No subcutaneous nodules, No rash, lesions, No ulcers Extremities:No digital cyanosis No clubbing, Pedal pulses intact and symmetrical Radial pulses intact and symmetrical Normal gait and station, No calf tenderness Psychiatric: Alert and oriented to person, place and time, Appropriate affect Intact judgement Neuro: Muscles Strength 5/5 in all 4 extremities, Sensation to light touch grossly present throughout, Cranial nerves II-XII grossly intact. No focal sensory deficits - Labs CBC & Chem 7: 06/20/18 06:18 06/20/18 06:18 Labs: Abnormal Lab Results - Last 24 Hours (Table) 06/18/18 06/19/18 06/19/18 Range/Units 20:58 12:00 17:05 RBC (4.30-5.90) m/uL Hgb (13.0-17.5) gm/dL Hct (39.0-53.0) % Lymphocytes # (1.0-4.8) k/uL Chloride (98-107) mmol/L Carbon Dioxide (22-30) mmol/L Glucose (74-99) mg/dL POC Glucose (mg/dL) 122 H 104 H (75-99) mg/dL Hemoglobin A1c 8.4 H (4.0-6.0) % 06/19/18 06/20/18 06/20/18 Range/Units 20:42 06:05 06:18 RBC (4.30-5.90) m/uL Hgb (13.0-17.5) gm/dL Hct (39.0-53.0) % Lymphocytes # (1.0-4.8) k/uL Chloride 95 L (98-107) mmol/L Carbon Dioxide 40 H (22-30) mmol/L Glucose 153 H (74-99) mg/dL POC Glucose (mg/dL) 123 H 147 H (75-99) mg/dL Hemoglobin A1c (4.0-6.0) % 06/20/18 Range/Units 06:18 RBC 3.66 L (4.30-5.90) m/uL Hgb 11.2 L (13.0-17.5) gm/dL Hct 35.7 L (39.0-53.0) % Lymphocytes # 0.7 L (1.0-4.8) k/uL Chloride (98-107) mmol/L Carbon Dioxide (22-30) mmol/L Glucose (74-99) mg/dL POC Glucose (mg/dL) (75-99) mg/dL Hemoglobin A1c (4.0-6.0) % Microbiology - Last 24 Hours (Table) 06/18/18 15:03 Blood Culture - Preliminary Blood No Growth after 24 hours 06/18/18 Unknown Gram Stain - Preliminary Sputum Sputum Culture - Preliminary Assessment and Plan (1) Acute respiratory failure with hypoxia Narrative/Plan: * Secondary to likely recurrent pneumonia superimposed on medical noncompliance with his supplemental oxygen vs cardiac etiology * Appreciate pulmonary recommendations * Continue supplemental oxygen, scheduled and when necessary bronchodilator DuoNeb breathing treatments Current Visit: No Status: Acute Code(s): J96.01 - ACUTE RESPIRATORY FAILURE WITH HYPOXIA SNOMED Code(s): 37436996 (2) Non-STEMI (non-ST elevated myocardial infarction) Narrative/Plan: * Likely related to demand ischemia from pneumonia and respiratory failure * Previously had heart catheterization in February 2018 which showed normal coronary arteries * Continue ASA, statin therapy and beta tona and IV heparin Current Visit: Yes Status: Acute Code(s): I21.4 - NON-ST ELEVATION (NSTEMI) MYOCARDIAL INFARCTION SNOMED Code(s): 46769080 (3) Type 2 diabetes mellitus with hyperglycemia Narrative/Plan: * Blood sugars are pretty stable * Continue with insulin regimen correctional scale coverage * We'll continue to monitor Current Visit: No Status: Acute Code(s): E11.65 - TYPE 2 DIABETES MELLITUS WITH HYPERGLYCEMIA SNOMED Code(s): 418125006576022 (4) Pneumonia Narrative/Plan: * Continue current treatment regimen with Levaquin and vancomycin * Patient does have a history of MRSA and Klebsiella found on previous BAL * Appreciate ID recommendations Current Visit: No Status: Acute Code(s): J18.9 - PNEUMONIA, UNSPECIFIED ORGANISM SNOMED Code(s): 855482289 (5) Hypertension Narrative/Plan: * Blood pressure is stable and controlled on current regimen Current Visit: No Status: Acute Code(s): I10 - ESSENTIAL (PRIMARY) HYPERTENSION SNOMED Code(s): 94053451 (6) Dysphagia Narrative/Plan: * Patient nothing by mouth, must take medications via PEG * Continue with PEG tube feeds 2 cans of Glucerna 3 times a day * Patient continues to report that his medications were previously given here via mouth and that is how he takes them at home. Discussed with speech therapy and they have strongly contradicted these claims. Speech asked to reemphasize to the patient that he is NPO except sips of water and his medications are to be crushed and placed in his PEG tube * Speech recommended. Pleasure feeds and thin liquid trials Current Visit: No Status: Chronic Code(s): R13.10 - DYSPHAGIA, UNSPECIFIED SNOMED Code(s): 92294771 (7) Medical non-compliance Narrative/Plan: * Patient unable to take responsibility for his actions of not wearing his recommended home O2 at 2 L on leaving the house presented here with respiratory failure and hypoxia * Discussed with case consultant the need for patient to have a prescription for more portable oxygen and to obtain a prescription from pulmonary * Patient continues to be noncompliant with speech therapy recommendations regarding taking his medications via PEG and a highly suspect that he is also noncompliant with recommendations regarding not having any oral feeds * speech therapy consulted Current Visit: Yes Status: Acute Code(s): Z91.19 - PATIENT'S NONCOMPLIANCE W OTH MEDICAL TREATMENT AND REGIMEN SNOMED Code(s): 158615245 Plan: Anticipated discharge 1-2 days
[2018-06-20] MEDS ORDERED: VANCOMYCIN TROUGH DUE 1 EACH MISC MISCELLANE ONE (11:00)
[2018-06-20 11:52] LABS: Glucose,Whole Blood 137 mg/dL (75-99)
--- NOTE | 2018-06-20 13:58 | P.PN ---
Subjective Progress Note Date: 06/20/18 Principal diagnosis: Shortness of breath, cough, possible MRSA pneumonia This is a 53-year-old white male patient of Dr. Marsh, and into the emergency department on 06/18/2018 for evaluation of a 5 day history of increased shortness of breath, and cough, production of copious amounts of brown sputum, overall not feeling well, fatigue, lethargy. Denied any fever or chills. Patient is well-known to our service from his multiple previous admissions for recurrent episodes of pneumonia, previous bronchial wash cultures were positive for MRSA and Klebsiella pneumonia. 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 Patient follows with Dr. Barron in the pulmonary office. His most recent hospitalization was in April for bilateral multifocal pneumonia, patient was treated with a combination of Levaquin, vancomycin and Zosyn, improved and was discharged home. Patient is now on home oxygen currently at 2 L per nasal cannula around the clock. He was hypoxemic in the emergency department, sat of 82% on room air. Chest x-ray showed chronic changes with the retrocardiac infiltrate or atelectasis. Patient has been afebrile, lab work showed no leukocytosis, WBC was 6.0, hemoglobin 12.6, sodium is 135, potassium is 4.8, chloride is 92, CO2 38, BUN of 18, creatinine is 0.60, lactic acid was within normal limits at 1.2, patient had elevated troponins is 0.053, 0.053 and 0.050. States he has been having some intermittent sternal chest discomfort which last less than a minute, associated with shortness of breath, no diaphoresis, no radiation no specific exacerbating factors. EKG showed sinus tachycardia with T-wave inversion in the anterior leads. Cardiology is following. Most recently his echocardiogram from March 2018 showed preserved left ventricular systolic function with an EF of 55-60%, mild TR, trace MR, and no evidence of pulmonary hypertension. Patient had a heart catheterization on which showed normal coronary arteries. Patient was started on empiric antibiotics form of Levaquin, vancomycin was added today. Sputum culture was collected and sent, and is pending at this time. Preliminary Gram stain shows many gram-positive cocci in pairs and chains, few gram-positive bacilli and few gram-negative bacilli, final culture is in progress. On 06/20/2018 patient seen in follow-up. Patient is bringing up copious amounts of dark colored brown sputum. He denies worsening dyspnea, no fever or chills, blood culture was negative, sputum Gram stain showed many gram-positive cocci and peers and chains, few gram-positive bacilli and few gram-negative bacilli, final culture is in progress, ID service is following and patient is currently on Unasyn and Levaquin. Patient is having intermittent coughing spells after taking a drink of water, aspiration is still suspected. Today's labs have been reviewed, WBCs 4.4, hemoglobin is 11.2, sodium is 138, potassium is 4.5, chloride is 95, CO2 is 40, BUN is 12 and creatinine 0.68. Afebrile, currently on 3 L per nasal cannula pulse ox is 95%, patient is ambulating, he is tolerating his tube feedings. Objective - Vital Signs Vital signs: Vital Signs Temp 97.9 F 06/20/18 12:00 Pulse 93 06/20/18 12:00 Resp 18 06/20/18 12:00 BP 88/52 06/20/18 12:00 Pulse Ox 95 06/20/18 12:00 Intake & Output 06/19/18 06/20/18 06/20/18 18:59 06:59 18:59 Intake Total 995 1615 720 Balance 995 1615 720 Weight 75.6 kg 75.5 kg Intake: IV 895 0.9 320 Ampicillin-Sulbactam 1.5 50 gm In Sodium Chloride 0.9 % 50 ml @ 100 mls/hr IVPB Q6H [facility] Rx#:[id number] Levofloxacin 750Mg-D5w 150 Pmx 750 mg In Dextrose/ Water 1 150ml.bag @ 100 mls/hr IVPB Q24H [facility] Rx#: [id number] Vancomycin 1,250 mg In 375 Sodium Chloride 0.9% 250 ml @ 125 mls/hr IVPB Q8H [facility] Rx#:[id number] Oral 755 Tube Feeding 240 720 720 Other: Voiding Method Toilet Toilet - Exam GENERAL EXAM: Alert, is a 53-year-old white male comfortable in no apparent distress. HEAD: Normocephalic/atraumatic. EYES: Normal reaction of pupils, equal size. Conjunctiva pink, sclera white. NOSE: Clear with pink turbinates. THROAT: No erythema or exudates. NECK: No masses, no JVD, no thyroid enlargement, no adenopathy. CHEST: No chest wall deformity. Symmetrical expansion. LUNGS: Equal air entry with some crackles at the bases, no wheezing CVS: Regular rate and rhythm, normal S1 and S2, no gallops, no murmurs, no rubs ABDOMEN: Soft, nontender. No hepatosplenomegaly, normal bowel sounds, no guarding or rigidity. PEG tube present EXTREMITIES: No clubbing, no edema, no cyanosis, 2+ pulses and upper and lower extremities. MUSCULOSKELETAL: Muscle strength and tone normal. SPINE: No scoliosis or deformity SKIN: No rashes CENTRAL NERVOUS SYSTEM: Alert and oriented -3. No focal deficits, tone is normal in all 4 extremities. PSYCHIATRIC: Alert and oriented -3. Appropriate affect. Intact judgment and insight. - Labs CBC & Chem 7: 06/20/18 06:18 06/20/18 06:18 Labs: Abnormal Lab Results - Last 24 Hours (Table) 06/18/18 06/19/18 06/19/18 Range/Units 20:58 17:05 20:42 RBC (4.30-5.90) m/uL Hgb (13.0-17.5) gm/dL Hct (39.0-53.0) % Lymphocytes # (1.0-4.8) k/uL Chloride (98-107) mmol/L Carbon Dioxide (22-30) mmol/L Glucose (74-99) mg/dL POC Glucose (mg/dL) 104 H 123 H (75-99) mg/dL Hemoglobin A1c 8.4 H (4.0-6.0) % 06/20/18 06/20/18 06/20/18 Range/Units 06:05 06:18 06:18 RBC 3.66 L (4.30-5.90) m/uL Hgb 11.2 L (13.0-17.5) gm/dL Hct 35.7 L (39.0-53.0) % Lymphocytes # 0.7 L (1.0-4.8) k/uL Chloride 95 L (98-107) mmol/L Carbon Dioxide 40 H (22-30) mmol/L Glucose 153 H (74-99) mg/dL POC Glucose (mg/dL) 147 H (75-99) mg/dL Hemoglobin A1c (4.0-6.0) % 06/20/18 Range/Units 11:51 RBC (4.30-5.90) m/uL Hgb (13.0-17.5) gm/dL Hct (39.0-53.0) % Lymphocytes # (1.0-4.8) k/uL Chloride (98-107) mmol/L Carbon Dioxide (22-30) mmol/L Glucose (74-99) mg/dL POC Glucose (mg/dL) 137 H (75-99) mg/dL Hemoglobin A1c (4.0-6.0) % Microbiology - Last 24 Hours (Table) 06/18/18 15:03 Blood Culture - Preliminary Blood No Growth after 24 hours 06/18/18 Unknown Gram Stain - Preliminary Sputum Sputum Culture - Preliminary Assessment and Plan Plan: Assessment: #1. Acute on chronic hypoxemic respiratory failure secondary to underlying pneumonia, possibly MRSA related and gram-negative organism related based on the previous bronch wash cultures #2. Dyspnea, fatigue, cough with phlegm production related to the above #3. Elevated troponins, rule out non-ST elevated [place] #4. History of left brain stem CVA in 2016 with residual right-sided weakness, chronic dysphagia and chronic aspiration #5. Chronic PEG tube with tube feedings for dysphagia. Patient does eat by mouth, follows with the speech therapist on an outpatient basis #6. Multiple previous episodes of pneumonia #7. Hypertension, hyperlipidemia #8. History of questionable PE and DVT, patient had completed anticoagulation therapy #9. Irritable bowel syndrome #10. Diabetes mellitus type 2 Plan: Patient is still quite congested bringing up copious amounts of brown colored sputum. We discussed the option of bronchoscopy with BAL, patient wants to proceed. Nothing by mouth after midnight, we'll schedule bronchoscopy with Dr. Fitzpatrick tomorrow on 06/21/2018, tentatively at 10:00 in the morning. Patient can then be considered for discharge after the bronchoscopy, provided he remains stable I performed a history & physical examination of the patient and discussed their management with my nurse practitioner, Adriana Tena. I reviewed the nurse practitioner's note and agree with the documented findings and plan of care. Lung sounds are basilar crackles. The findings and the impression was discussed with the patient. I attest to the documentation by the nurse practitioner. Time with Patient: Less than 30
[2018-06-20 16:54] LABS: Glucose,Whole Blood 133 mg/dL (75-99)
[2018-06-20] MEDS ORDERED: LEVOFLOXACIN 750 MG TAB PO SCH (19:00)
[2018-06-20] MEDS: traZODone HCL 100 MG TAB PO SCH (20:22)
[2018-06-20] MEDS: ATORVASTATIN 20 MG TAB PO SCH (20:22)
[2018-06-20] MEDS: CYCLOBENZAPRINE 10 MG TAB PO PRN (20:22)
[2018-06-20] MEDS: INSULIN DETEMIR 100 UNIT/ML 10 ML VIAL SQ SCH (20:36)
[2018-06-20 20:44] LABS: Glucose,Whole Blood 137 mg/dL (75-99)
[2018-06-21] MEDS: AMPICILLIN-SULBACTAM 1.5 GM in SODIUM CHLORIDE 0.9% 50 ML IVPB SCH ×2 (00:14→05:47)
[2018-06-21] MEDS: VANCOMYCIN 1,250 MG in SODIUM CHLORIDE 0.9% 250 ML IVPB SCH ×2 (03:49→12:59)
[2018-06-21 03:57] VITALS: PULSE 95
[2018-06-21 05:38] LABS: Glucose,Whole Blood 124 mg/dL (75-99)
[2018-06-21] MEDS: INSULIN ASPART 100 UNIT/ML 1 ML 10 ML VIAL SQ SCH ×2 (05:43→12:45)
[2018-06-21] MEDS: SYMBICORT 160-4.5 MCG INHALER INHALATION SCH (08:01)
[2018-06-21] MEDS ORDERED: fentaNYL (PF) 50 MCG/ML 2 ML AMP ONE (11:10)
[2018-06-21] MEDS ORDERED: GLYCOPYRROLATE 0.2 MG/ML 2 ML VIAL ONE (11:10)
[2018-06-21] MEDS ORDERED: MIDAZOLAM 2 MG/2 ML VIAL ONE (11:10)
[2018-06-21] MEDS ORDERED: LIDOCAINE 1% INJ 10MG/ML (20 ML MDV) ONE (11:10)
[2018-06-21] MEDS ORDERED: PROPOFOL 10 MG/ML 20 ML VIAL IV ONE (11:10)
[2018-06-21] MEDS ORDERED: KETAMINE 10 MG/ML 20 ML VIAL ONE (11:10)
[2018-06-21] MEDS ORDERED: LACTATED RINGERS 1,000 ML IV ONE (11:13)
[2018-06-21 11:54] LABS: Glucose,Whole Blood 106 mg/dL (75-99)
[2018-06-21] MEDS: hydrOXYzine HCL 25 MG TAB PO SCH (12:51)
[2018-06-21] MEDS: GABAPENTIN 300 MG CAP PO SCH ×2 (12:51→13:07)
[2018-06-21] MEDS: PANTOPRAZOLE 40 MG TABLET PO SCH (12:51)
[2018-06-21] MEDS: METOPROLOL TARTRATE 50 MG TAB PO SCH (12:51)
[2018-06-21] MEDS: FAMOTIDINE 20 MG TAB PO SCH (12:51)
[2018-06-21] MEDS: ASPIRIN 325 MG TAB PO SCH (12:51)
[2018-06-21] MEDS: ESCITALOPRAM 20 MG TAB PO SCH (12:51)
[2018-06-21] MEDS: HEPARIN SODIUM,PORCINE 5,000 UNIT/ML 1 ML VIAL SQ SCH (12:52)
--- NOTE | 2018-06-21 12:58 | PCN ---
PROCEDURE NOTE PROCEDURE: Bronchoscopy, random bronchial washings, and lavage. PREOPERATIVE DIAGNOSIS: Severe tracheobronchitis, difficulty clearing secretions. POSTOPERATIVE DIAGNOSIS: Severe tracheobronchitis, difficulty clearing secretions. ANESTHESIA USED: IV conscious sedation. PROCEDURE DESCRIPTION: Patient was prepared according to the bronchoscopy protocol. Patient was placed in a supine position, O2 was applied via nasal cannula. His oxygen saturation was monitored continuously via pulse oximetry. Cardiac rhythm was continuously monitored and the blood pressure was intermittently monitored. After adequate IV conscious sedation, the left naris was anesthetized with 1 mL of lidocaine. Then the bronchoscope was advanced to the left naris down to the area of the vocal cords, which were noted to be patent. Lidocaine was applied over the vocal cords, and the bronchoscope was advanced down to the trachea. Thorough examination was done of the trachea, susan, right upper lobe, right middle lobe, right lower lobe, left upper lobe lingula and left lower lobe. There was evidence of significant thick purulent secretions in all the different lobes and segments on both sides. All the secretions were suctioned and lavaged using saline. This was done until all the airways were clear. The procedure was well tolerated, the bronchoscope was pulled out of the airways, no evidence of any immediate complication. Fluid and secretions obtained were sent for different diagnostic studies. MMODL / IJN: [id number] /
--- NOTE | 2018-06-21 15:55 | P.PN ---
Subjective Progress Note Date: 06/21/18 Patient is doing well today. He was scheduled for bronchoscopy this morning when I saw him. No acute events overnight. Objective - Vital Signs Vital signs: Vital Signs Temp 98.4 F 06/21/18 03:53 Pulse 95 06/21/18 03:53 Resp 18 06/21/18 03:53 BP 129/62 06/21/18 03:53 Pulse Ox 91 L 06/21/18 03:53 Intake & Output 06/20/18 06/21/18 06/21/18 18:59 06:59 18:59 Intake Total 1200 1265 240 Balance 1200 1265 240 Weight 75.4 kg Intake: IV 785 0.9 160 Ampicillin-Sulbactam 1.5 250 gm In Sodium Chloride 0.9 % 50 ml @ 100 mls/hr IVPB Q6H [facility] Rx#:[id number] Vancomycin 1,250 mg In 375 Sodium Chloride 0.9% 250 ml @ 125 mls/hr IVPB Q8H [facility] Rx#:[id number] Oral 240 Tube Feeding 1200 480 Other: Voiding Method Toilet - Exam General: The patient is awake and alert, in no distress Eye: there is normal conjunctiva bilaterally. Neck: The neck is supple, there is no JVD. Cardiovascular: Normal S1-S2, no S3-S4, no murmurs. Respiratory: Lungs clear to auscultation bilaterally Gastrointestinal: Abdomen is soft, nontender Musculoskeletal: There is no pedal edema. Neurological:. Speech is normal. Skin: Skin is warm and dry - Labs CBC & Chem 7: 06/20/18 06:18 06/21/18 06:08 Labs: Abnormal Lab Results - Last 24 Hours (Table) 06/20/18 06/20/18 06/21/18 Range/Units 16:52 20:41 05:36 Creatinine (0.66-1.25) mg/dL POC Glucose (mg/dL) 133 H 137 H 124 H (75-99) mg/dL 06/21/18 06/21/18 Range/Units 06:08 11:53 Creatinine 0.58 L (0.66-1.25) mg/dL POC Glucose (mg/dL) 106 H (75-99) mg/dL Microbiology - Last 24 Hours (Table) 06/18/18 15:03 Blood Culture - Preliminary Blood No Growth after 48 hours 06/18/18 Unknown Gram Stain - Preliminary Sputum Sputum Culture - Preliminary Presumptive Staph aureus Assessment and Plan Assessment: (1) Acute respiratory failure with hypoxia Narrative/Plan: Secondary to likely recurrent pneumonia Appreciate pulmonary recommendations, status post bronchoscopy today Continue supplemental oxygen, scheduled and when necessary bronchodilator DuoNeb breathing treatments Current Visit: No Status: Acute Code(s): J96.01 - ACUTE RESPIRATORY FAILURE WITH HYPOXIA SNOMED Code(s): 40113218 (2) Non-STEMI (non-ST elevated myocardial infarction) Narrative/Plan: Likely related to demand ischemia from pneumonia and respiratory failure Previously had heart catheterization in February 2018 which showed normal coronary arteries Continue ASA, statin therapy and beta tona and IV heparin Current Visit: Yes Status: Acute Code(s): I21.4 - NON-ST ELEVATION (NSTEMI) MYOCARDIAL INFARCTION SNOMED Code(s): 29463091 (3) Type 2 diabetes mellitus with hyperglycemia Narrative/Plan: Blood sugars are pretty stable Continue with insulin regimen correctional scale coverage We'll continue to monitor Current Visit: No Status: Acute Code(s): E11.65 - TYPE 2 DIABETES MELLITUS WITH HYPERGLYCEMIA SNOMED Code(s): 465352108081263 (4) Pneumonia Narrative/Plan: Continue current treatment regimen with Levaquin and vancomycin Patient does have a history of MRSA and Klebsiella found on previous BAL Appreciate ID recommendations Current Visit: No Status: Acute Code(s): J18.9 - PNEUMONIA, UNSPECIFIED ORGANISM SNOMED Code(s): 650305104 (5) Hypertension Narrative/Plan: Blood pressure is stable and controlled on current regimen Current Visit: No Status: Acute Code(s): I10 - ESSENTIAL (PRIMARY) HYPERTENSION SNOMED Code(s): 14316865 (6) Dysphagia Narrative/Plan: Patient nothing by mouth, must take medications via PEG Continue with PEG tube feeds 2 cans of Glucerna 3 times a day Patient continues to report that his medications were previously given here via mouth and that is how he takes them at home. Discussed with speech therapy and they have strongly contradicted these claims. Speech asked to reemphasize to the patient that he is NPO except sips of water and his medications are to be crushed and placed in his PEG tube Speech recommended. Pleasure feeds and thin liquid trials Current Visit: No Status: Chronic Code(s): R13.10 - DYSPHAGIA, UNSPECIFIED SNOMED Code(s): 49079376 (7) Medical non-compliance Narrative/Plan: Patient unable to take responsibility for his actions of not wearing his recommended home O2 at 2 L on leaving the house presented here with respiratory failure and hypoxia Discussed with classification case manager the need for patient to have a prescription for more portable oxygen and to obtain a prescription from pulmonary Patient continues to be noncompliant with speech therapy recommendations regarding taking his medications via PEG and a highly suspect that he is also noncompliant with recommendations regarding not having any oral feeds speech therapy consulted Current Visit: Yes Status: Acute Code(s): Z91.19 - PATIENT'S NONCOMPLIANCE W OTH MEDICAL TREATMENT AND REGIMEN SNOMED Code(s): 833227251
--- NOTE | 2018-06-21 16:19 | P.PN ---
Subjective Progress Note Date: 06/21/18 Principal diagnosis: Shortness of breath, cough, possible MRSA pneumonia This is a 53-year-old white male patient of Dr. Marsh, and into the emergency department on 06/18/2018 for evaluation of a 5 day history of increased shortness of breath, and cough, production of copious amounts of brown sputum, overall not feeling well, fatigue, lethargy. Denied any fever or chills. Patient is well-known to our service from his multiple previous admissions for recurrent episodes of pneumonia, previous bronchial wash cultures were positive for MRSA and Klebsiella pneumonia. 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 Patient follows with Dr. Barron in the pulmonary office. His most recent hospitalization was in April for bilateral multifocal pneumonia, patient was treated with a combination of Levaquin, vancomycin and Zosyn, improved and was discharged home. Patient is now on home oxygen currently at 2 L per nasal cannula around the clock. He was hypoxemic in the emergency department, sat of 82% on room air. Chest x-ray showed chronic changes with the retrocardiac infiltrate or atelectasis. Patient has been afebrile, lab work showed no leukocytosis, WBC was 6.0, hemoglobin 12.6, sodium is 135, potassium is 4.8, chloride is 92, CO2 38, BUN of 18, creatinine is 0.60, lactic acid was within normal limits at 1.2, patient had elevated troponins is 0.053, 0.053 and 0.050. States he has been having some intermittent sternal chest discomfort which last less than a minute, associated with shortness of breath, no diaphoresis, no radiation no specific exacerbating factors. EKG showed sinus tachycardia with T-wave inversion in the anterior leads. Cardiology is following. Most recently his echocardiogram from March 2018 showed preserved left ventricular systolic function with an EF of 55-60%, mild TR, trace MR, and no evidence of pulmonary hypertension. Patient had a heart catheterization on which showed normal coronary arteries. Patient was started on empiric antibiotics form of Levaquin, vancomycin was added today. Sputum culture was collected and sent, and is pending at this time. Preliminary Gram stain shows many gram-positive cocci in pairs and chains, few gram-positive bacilli and few gram-negative bacilli, final culture is in progress. On 06/20/2018 patient seen in follow-up. Patient is bringing up copious amounts of dark colored brown sputum. He denies worsening dyspnea, no fever or chills, blood culture was negative, sputum Gram stain showed many gram-positive cocci and peers and chains, few gram-positive bacilli and few gram-negative bacilli, final culture is in progress, ID service is following and patient is currently on Unasyn and Levaquin. Patient is having intermittent coughing spells after taking a drink of water, aspiration is still suspected. Today's labs have been reviewed, WBCs 4.4, hemoglobin is 11.2, sodium is 138, potassium is 4.5, chloride is 95, CO2 is 40, BUN is 12 and creatinine 0.68. Afebrile, currently on 3 L per nasal cannula pulse ox is 95%, patient is ambulating, he is tolerating his tube feedings. On 06/21/2018 patient seen in follow-up on selective care unit this morning. Patient's bronchial was scheduled for 11:00 today. Patient is calm and comfortable, less congested on today's exam. He is still bringing up large amount of sputum, but it is suggestion clerk, and clear in color. Sputum cultures are positive for presumptive staph aureus, blood culture showed no growth. Afebrile , vital signs are stable. Patient is on a combination of Unasyn, Levaquin and vancomycin, ID service is following. Objective - Vital Signs Vital signs: Vital Signs Temp 98.4 F 06/21/18 03:53 Pulse 95 06/21/18 03:53 Resp 18 06/21/18 03:53 BP 129/62 06/21/18 03:53 Pulse Ox 91 L 06/21/18 03:53 Intake & Output 06/20/18 06/21/18 06/21/18 18:59 06:59 18:59 Intake Total 1200 1265 240 Balance 1200 1265 240 Weight 75.4 kg Intake: IV 785 0.9 160 Ampicillin-Sulbactam 1.5 250 gm In Sodium Chloride 0.9 % 50 ml @ 100 mls/hr IVPB Q6H [facility] Rx#:[id number] Vancomycin 1,250 mg In 375 Sodium Chloride 0.9% 250 ml @ 125 mls/hr IVPB Q8H [facility] Rx#:[id number] Oral 240 Tube Feeding 1200 480 Other: Voiding Method Toilet - Exam GENERAL EXAM: Alert, is a 53-year-old white male comfortable in no apparent distress. HEAD: Normocephalic/atraumatic. EYES: Normal reaction of pupils, equal size. Conjunctiva pink, sclera white. NOSE: Clear with pink turbinates. THROAT: No erythema or exudates. NECK: No masses, no JVD, no thyroid enlargement, no adenopathy. CHEST: No chest wall deformity. Symmetrical expansion. LUNGS: Equal air entry with some crackles at the bases, no wheezing CVS: Regular rate and rhythm, normal S1 and S2, no gallops, no murmurs, no rubs ABDOMEN: Soft, nontender. No hepatosplenomegaly, normal bowel sounds, no guarding or rigidity. PEG tube present EXTREMITIES: No clubbing, no edema, no cyanosis, 2+ pulses and upper and lower extremities. MUSCULOSKELETAL: Muscle strength and tone normal. SPINE: No scoliosis or deformity SKIN: No rashes CENTRAL NERVOUS SYSTEM: Alert and oriented -3. No focal deficits, tone is normal in all 4 extremities. PSYCHIATRIC: Alert and oriented -3. Appropriate affect. Intact judgment and insight. - Labs CBC & Chem 7: 06/20/18 06:18 06/21/18 06:08 Labs: Abnormal Lab Results - Last 24 Hours (Table) 06/20/18 06/20/18 06/21/18 Range/Units 16:52 20:41 05:36 Creatinine (0.66-1.25) mg/dL POC Glucose (mg/dL) 133 H 137 H 124 H (75-99) mg/dL 06/21/18 06/21/18 Range/Units 06:08 11:53 Creatinine 0.58 L (0.66-1.25) mg/dL POC Glucose (mg/dL) 106 H (75-99) mg/dL Microbiology - Last 24 Hours (Table) 06/18/18 15:03 Blood Culture - Preliminary Blood No Growth after 48 hours 06/18/18 Unknown Gram Stain - Preliminary Sputum Sputum Culture - Preliminary Presumptive Staph aureus Assessment and Plan Plan: Assessment: #1. Acute on chronic hypoxemic respiratory failure secondary to underlying pneumonia, possibly MRSA related and gram-negative organism related based on the previous bronch wash cultures #2. Dyspnea, fatigue, cough with phlegm production related to the above #3. Elevated troponins, rule out non-ST elevated SC #4. History of left brain stem CVA in 2016 with residual right-sided weakness, chronic dysphagia and chronic aspiration #5. Chronic PEG tube with tube feedings for dysphagia. Patient does eat by mouth, follows with the speech therapist on an outpatient basis #6. Multiple previous episodes of pneumonia #7. Hypertension, hyperlipidemia #8. History of questionable PE and DVT, patient had completed anticoagulation therapy #9. Irritable bowel syndrome #10. Diabetes mellitus type 2 Plan: Patient scheduled for bronchoscopy with BAL, sputum cultures are positive for presumptive staph aureus, ID service added vancomycin, patient is on Unasyn and Levaquin. Continue with nebulized bronchodilators. We'll follow I performed a history & physical examination of the patient and discussed their management with my nurse practitioner, Adriana Tena. I reviewed the nurse practitioner's note and agree with the documented findings and plan of care. Lung sounds are basilar crackles. The findings and the impression was discussed with the patient. I attest to the documentation by the nurse practitioner. Time with Patient: Less than 30
[2018-06-21 16:41] LABS: Glucose,Whole Blood 81 mg/dL (75-99)
[2018-06-21 17:14] VITALS: TEMP 96.9
[2018-06-21 17:46] VITALS: RESP 16
[2018-06-21 17:51] VITALS: BP 112/66
[2018-06-21 20:30] LABS: Color,BF Colorless
[2018-06-21 20:31] LABS: Appearance,BF Cloudy; Mononuclear WBC,Body Fluid 4 %; Nucleated Cells, Body Fluid 7800 /uL; Polynuclear WBC,Body Fluid 96 %; RBC, Body Fluid 1050 /uL
--- NOTE | 2018-06-21 22:06 | P.PN ---
Subjective Progress Note Date: 06/21/18 Pleasant 53-year-old male known to infectious disease service due to his prior hospitalizations regarding his significant stroke the brainstem the resulted in difficulties with swallowing. He's had pneumonia requiring antibiotic therapy in the past and esophageal stricture that required a dilatation procedure. Patient was started to have some improvement of his swallow and was working well with the speech pathologist. However he presents with significant fever or shortness of breath cough and abnormal T on his chest x-ray CONSISTENT with pneumonia concerns to an aspiration given the fact that he does due to feeds by a bolus method 4 times throughout the day. The patient does not recall any specific aspiration event. He however does relate a sudden onset of feeling short of breath cough and is having a copious amount of sputum production The patient started to feel somewhat better since arrival to hospital. In March klebsiella and MRSA were isolated from his sputum. Patient relates this evening is feeling somewhat better and is very pleased that the video fluoroscopic swallow study did not reveal evidence of extensive amounts of aspiration or penetration. 06/21/2018 patient is now doing considerably better. Anxious for discharge to home. Denies new fevers chills. Cough is generally resolved. Sputum production is minimal. Shortness of breath is improved. No fevers or chills overall nearly at his baseline. Is at his baseline of 2 L of oxygen with adequate oxygenation. Bronchoscopy was performed without difficulties. The purulent secretions were suctioned the patient feels considerably better. Objective - Vital Signs Vital signs: Vital Signs Temp 96.9 F L 06/21/18 16:00 Pulse 95 06/21/18 16:00 Resp 16 06/21/18 16:00 BP 112/66 06/21/18 16:00 Pulse Ox 94 L 06/21/18 16:00 Intake & Output 06/21/18 06/21/18 06/22/18 06:59 18:59 06:59 Intake Total 1265 720 Balance 1265 720 Weight 75.4 kg Intake: IV 785 0.9 160 Ampicillin-Sulbactam 1.5 250 gm In Sodium Chloride 0.9 % 50 ml @ 100 mls/hr IVPB Q6H [facility] Rx#:[id number] Vancomycin 1,250 mg In 375 Sodium Chloride 0.9% 250 ml @ 125 mls/hr IVPB Q8H [facility] Rx#:[id number] Oral 240 Tube Feeding 480 480 Other: Voiding Method Toilet - Exam Pleasant 53-year-old male comfortable less short of breath still coughing up large amounts of copious secretions HEENT: Anicteric conjunctiva are pink and moist nasal mucosa grossly intact without significant lesions, there is no thrush. Neck: The neck is supple without significant lymphadenopathy or thyromegaly. Lungs: Symmetrical air entry is noted. There is evidence of bronchial sounds with dullness little egophony to the left base few expiratory wheezes are scattered Heart: Regular rate and rhythm with an audible S1-S2, no S3 no S4. There is no significant murmur click or rub, PMI was nondisplaced. Abdomen: Positive bowel sounds soft and nontender without palpable masses or organomegaly. There was no guarding or rebound. PEG site intact without tenderness or drainage Extremities: The upper extremities have excellent pulses they are symmetric, no significant petechiae or telangiectasia. No splinter hemorrhages were noted. The lower extremities are free from significant edema. The peripheral pulses were 2+ and symmetric. Neuro: Awake alert oriented to person place and time. Does not appear significant localizing deficits - Labs CBC & Chem 7: 06/20/18 06:18 06/21/18 06:08 Labs: Abnormal Lab Results - Last 24 Hours (Table) 06/21/18 06/21/18 06/21/18 Range/Units 05:36 06:08 11:53 Creatinine 0.58 L (0.66-1.25) mg/dL POC Glucose (mg/dL) 124 H 106 H (75-99) mg/dL Microbiology - Last 24 Hours (Table) 06/21/18 11:10 Acid Fast Bacilli Culture - Preliminary Bronchial Washings - Random 06/21/18 11:10 Bronchial Washings Culture - Preliminary Bronchial Washings - Random 06/21/18 11:10 Fungal Culture - Preliminary Bronchial Washings - Random 06/18/18 15:03 Blood Culture - Preliminary Blood No Growth after 72 hours Laboratory Results WBC 4.4 k/uL (3.8-10.6) 06/20/18 06:18 RBC 3.66 m/uL (4.30-5.90) L 06/20/18 06:18 Hgb 11.2 gm/dL (13.0-17.5) L 06/20/18 06:18 Hct 35.7 % (39.0-53.0) L 06/20/18 06:18 MCV 97.3 fL (80.0-100.0) 06/20/18 06:18 MCH 30.7 pg (25.0-35.0) 06/20/18 06:18 MCHC 31.5 g/dL (31.0-37.0) 06/20/18 06:18 RDW 14.2 % (11.5-15.5) 06/20/18 06:18 Plt Count 192 k/uL (150-450) 06/20/18 06:18 Neutrophils % 72 % 06/20/18 06:18 Lymphocytes % 17 % 06/20/18 06:18 Monocytes % 7 % 06/20/18 06:18 Eosinophils % 1 % 06/20/18 06:18 Basophils % 0 % 06/20/18 06:18 Neutrophils # 3.2 k/uL (1.3-7.7) 06/20/18 06:18 Lymphocytes # 0.7 k/uL (1.0-4.8) L 06/20/18 06:18 Monocytes # 0.3 k/uL (0-1.0) 06/20/18 06:18 Eosinophils # 0.1 k/uL (0-0.7) 06/20/18 06:18 Basophils # 0.0 k/uL (0-0.2) 06/20/18 06:18 Hypochromasia Slight 06/20/18 06:18 PT 9.7 sec (9.0-12.0) 06/18/18 15:03 INR 0.9 (<1.2) 06/18/18 15:03 APTT 29.3 sec (22.0-30.0) 06/19/18 06:57 Sodium 138 mmol/L (137-145) 06/20/18 06:18 Potassium 4.5 mmol/L (3.5-5.1) 06/20/18 06:18 Chloride 95 mmol/L (98-107) L 06/20/18 06:18 Carbon Dioxide 40 mmol/L (22-30) H 06/20/18 06:18 Anion Gap 3 mmol/L 06/20/18 06:18 BUN 12 mg/dL (9-20) 06/20/18 06:18 Creatinine 0.58 mg/dL (0.66-1.25) L 06/21/18 06:08 Est GFR (CKD-EPI)AfAm >90 (>60 ml/min/1.73 sqM) 06/21/18 06:08 Est GFR (CKD-EPI)NonAf >90 (>60 ml/min/1.73 sqM) 06/21/18 06:08 Glucose 153 mg/dL (74-99) H 06/20/18 06:18 POC Glucose (mg/dL) 81 mg/dL (75-99) 06/21/18 16:36 POC Glu Foreign Car Mechanic ID Marian Sandoval 06/21/18 16:[address] Glu mg/dL 194 06/18/18 20:58 Hemoglobin A1c 8.4 % (4.0-6.0) H 06/18/18 20:58 Plasma Lactic Acid Calin 1.2 mmol/L (0.7-2.0) 06/18/18 15:03 Calcium 8.7 mg/dL (8.4-10.2) 06/20/18 06:18 Magnesium 1.7 mg/dL (1.6-2.3) 06/18/18 15:03 Total Bilirubin 0.4 mg/dL (0.2-1.3) 06/18/18 15:03 AST 19 U/L (17-59) 06/18/18 15:03 ALT 16 U/L (21-72) L 06/18/18 15:03 Alkaline Phosphatase 84 U/L (38-126) 06/18/18 15:03 Total Creatine Kinase <20 U/L (55-170) L 06/19/18 03:50 CK-MB (CK-2) 1.3 ng/mL (0.0-2.4) 06/19/18 03:50 CK-MB (CK-2) Rel Index 06/19/18 03:50 Troponin I 0.050 ng/mL (0.000-0.034) H* 06/19/18 03:50 Total Protein 6.9 g/dL (6.3-8.2) 06/18/18 15:03 Albumin 3.3 g/dL (3.5-5.0) L 06/18/18 15:03 Triglycerides 104 mg/dL (<150) 06/19/18 03:50 Cholesterol 124 mg/dL (<200) 06/19/18 03:50 LDL Cholesterol, Calc 52 mg/dL (0-99) 06/19/18 03:50 HDL Cholesterol 51 mg/dL (40-60) 06/19/18 03:50 Fluid Source Bronchial Wash 06/21/18 11:10 Fluid Color Colorless 06/21/18 11:10 Fluid Appearance Cloudy 06/21/18 11:10 Fluid RBC 1050 /uL 06/21/18 11:10 Fluid Nucleated Cells 7800 /uL 06/21/18 11:10 Fluid Polynuclear WBCs 96 % 06/21/18 11:10 Fluid Mononuclear WBCs 4 % 06/21/18 11:10 Vancomycin Trough 15.3 ug/mL 06/20/18 11:04 Microbiology 06/21/18 11:10 Bronchial Washings - Random Acid Fast Bacilli Culture - Preliminary 06/21/18 11:10 Bronchial Washings - Random Bronchial Washings Culture - Preliminary 06/21/18 11:10 Bronchial Washings - Random Fungal Culture - Preliminary 06/18/18 15:03 Blood Blood Culture - Preliminary No Growth after 72 hours 06/18/18 Unknown Sputum Gram Stain - Preliminary 06/18/18 Unknown Sputum Sputum Culture - Preliminary Presumptive Staph aureus Laboratory Results WBC 4.4 k/uL (3.8-10.6) 06/20/18 06:18 RBC 3.66 m/uL (4.30-5.90) L 06/20/18 06:18 Hgb 11.2 gm/dL (13.0-17.5) L 06/20/18 06:18 Hct 35.7 % (39.0-53.0) L 06/20/18 06:18 MCV 97.3 fL (80.0-100.0) 06/20/18 06:18 MCH 30.7 pg (25.0-35.0) 06/20/18 06:18 MCHC 31.5 g/dL (31.0-37.0) 06/20/18 06:18 RDW 14.2 % (11.5-15.5) 06/20/18 06:18 Plt Count 192 k/uL (150-450) 06/20/18 06:18 Neutrophils % 72 % 06/20/18 06:18 Lymphocytes % 17 % 06/20/18 06:18 Monocytes % 7 % 06/20/18 06:18 Eosinophils % 1 % 06/20/18 06:18 Basophils % 0 % 06/20/18 06:18 Neutrophils # 3.2 k/uL (1.3-7.7) 06/20/18 06:18 Lymphocytes # 0.7 k/uL (1.0-4.8) L 06/20/18 06:18 Monocytes # 0.3 k/uL (0-1.0) 06/20/18 06:18 Eosinophils # 0.1 k/uL (0-0.7) 06/20/18 06:18 Basophils # 0.0 k/uL (0-0.2) 06/20/18 06:18 Hypochromasia Slight 06/20/18 06:18 PT 9.7 sec (9.0-12.0) 06/18/18 15:03 INR 0.9 (<1.2) 06/18/18 15:03 APTT 29.3 sec (22.0-30.0) 06/19/18 06:57 Sodium 138 mmol/L (137-145) 06/20/18 06:18 Potassium 4.5 mmol/L (3.5-5.1) 06/20/18 06:18 Chloride 95 mmol/L (98-107) L 06/20/18 06:18 Carbon Dioxide 40 mmol/L (22-30) H 06/20/18 06:18 Anion Gap 3 mmol/L 06/20/18 06:18 BUN 12 mg/dL (9-20) 06/20/18 06:18 Creatinine 0.58 mg/dL (0.66-1.25) L 06/21/18 06:08 Est GFR (CKD-EPI)AfAm >90 (>60 ml/min/1.73 sqM) 06/21/18 06:08 Est GFR (CKD-EPI)NonAf >90 (>60 ml/min/1.73 sqM) 06/21/18 06:08 Glucose 153 mg/dL (74-99) H 06/20/18 06:18 POC Glucose (mg/dL) 81 mg/dL (75-99) 06/21/18 16:36 POC Glu Foreign [employer]ic Marian Ragland 06/21/18 16:[address] Glu mg/dL 194 06/18/18 20:58 Hemoglobin A1c 8.4 % (4.0-6.0) H 06/18/18 20:58 Plasma Lactic Acid Calin 1.2 mmol/L (0.7-2.0) 06/18/18 15:03 Calcium 8.7 mg/dL (8.4-10.2) 06/20/18 06:18 Magnesium 1.7 mg/dL (1.6-2.3) 06/18/18 15:03 Total Bilirubin 0.4 mg/dL (0.2-1.3) 06/18/18 15:03 AST 19 U/L (17-59) 06/18/18 15:03 ALT 16 U/L (21-72) L 06/18/18 15:03 Alkaline Phosphatase 84 U/L (38-126) 06/18/18 15:03 Total Creatine Kinase <20 U/L (55-170) L 06/19/18 03:50 CK-MB (CK-2) 1.3 ng/mL (0.0-2.4) 06/19/18 03:50 CK-MB (CK-2) Rel Index 06/19/18 03:50 Troponin I 0.050 ng/mL (0.000-0.034) H* 06/19/18 03:50 Total Protein 6.9 g/dL (6.3-8.2) 06/18/18 15:03 Albumin 3.3 g/dL (3.5-5.0) L 06/18/18 15:03 Triglycerides 104 mg/dL (<150) 06/19/18 03:50 Cholesterol 124 mg/dL (<200) 06/19/18 03:50 LDL Cholesterol, Calc 52 mg/dL (0-99) 06/19/18 03:50 HDL Cholesterol 51 mg/dL (40-60) 06/19/18 03:50 Fluid Source Bronchial Wash 06/21/18 11:10 Fluid Color Colorless 06/21/18 11:10 Fluid Appearance Cloudy 06/21/18 11:10 Fluid RBC 1050 /uL 06/21/18 11:10 Fluid Nucleated Cells 7800 /uL 06/21/18 11:10 Fluid Polynuclear WBCs 96 % 12/14/18 11:10 Fluid Mononuclear WBCs 4 % 06/21/18 11:10 Vancomycin Trough 15.3 ug/mL 06/20/18 11:04 Assessment and Plan (1) Acute respiratory failure with hypoxia Narrative/Plan: 53-year-old male who has a long-standing history of multiple medical troubles that includes diabetes mellitus with multiple complications, brainstem stroke with some significant ongoing recovery. There are concerns to an aspiration event resulting in the current pneumonia is seen by chest x-ray with the left- sided infiltrate. Fortunately patient is showing ongoing improvement in his having significant mobilization of secretions was somewhat copious amounts of sputum production. He is definitely feeling better. Oxygen levels are improving. With his history of Klebsiella and MRSA antibiotic therapy has been started with Levaquin and vancomycin which will be continued for now unclear with the vancomycin ALLERGY was tolerating it well this time. We will continue this for now for coverage of other pathogens of aspiration, he does not have a history of pseudomonal infection. He has done well with the video swallow study and hopefully with appropriate maneuvers will be able to have some improvement of his oral intake, is of some concern given the current pneumonia. He does feed with bolus feeds and be important that he does not feed and then lay down to sleep. Cultures are being monitored will further help antibiotic therapy. 06/21/2018 patient with bronchoscopy today with lavage of large amount of secretions. Post-bronchoscopy is feeling well and desires to be discharged home. The hospitalist is agreeing for discharge and request was for antibiotic therapy. Patient is looking well. He is afebrile. The pulmonary exam is improved because of the bronchoscopy. Patient's antibiotic therapy as sent to the pharmacy with Augmentin and trimethoprim sulfamethoxazole suspension to be taken for a week. We'll follow up with pulmonology clinic referred to the office if needed. Status: Acute Code(s): J96.01 - ACUTE RESPIRATORY FAILURE WITH HYPOXIA SNOMED Code(s): 75802514 (2) Non-STEMI (non-ST elevated myocardial infarction) Status: Acute Code(s): I21.4 - NON-ST ELEVATION (NSTEMI) MYOCARDIAL INFARCTION SNOMED Code(s): 83143868
[2018-06-22] MEDS ORDERED: VANCOMYCIN TROUGH DUE 1 EACH MISC MISCELLANE ONE (03:00)
== END 2018-06-21 18:29 | disposition home or self-care (01) | DRG 166 ==
LOC: EC 14:41 → 3SCARD 17:25
PROVIDERS: ADMIT Family Medicine; ATTEND Family Medicine
PROC: 0B9F8ZX Drainage of Right Lower Lung Lobe, Via Natural or Artificial Opening Endoscopic, Diagnostic (ICD-10-PCS; principal; 2018-06-21 07:30)
PROC: 0B9G8ZX Drainage of Left Upper Lung Lobe, Via Natural or Artificial Opening Endoscopic, Diagnostic (ICD-10-PCS; principal; 2018-06-21 07:30)
PROC: 0B9J8ZX Drainage of Left Lower Lung Lobe, Via Natural or Artificial Opening Endoscopic, Diagnostic (ICD-10-PCS; principal; 2018-06-21 07:30)
PROC: 0B9H8ZX Drainage of Lung Lingula, Via Natural or Artificial Opening Endoscopic, Diagnostic (ICD-10-PCS; principal; 2018-06-21 07:30)
PROC: 0B9D8ZX Drainage of Right Middle Lung Lobe, Via Natural or Artificial Opening Endoscopic, Diagnostic (ICD-10-PCS; principal; 2018-06-21 07:30)
PROC: 0B9C8ZX Drainage of Right Upper Lung Lobe, Via Natural or Artificial Opening Endoscopic, Diagnostic (ICD-10-PCS; principal; 2018-06-21 07:30)
DX: J18.9 Pneumonia, unspecified organism (principal); J96.21 Acute and chronic respiratory failure with hypoxia; I24.8 Other forms of acute ischemic heart disease; J98.11 Atelectasis; I69.351 Hemiplegia and hemiparesis following cerebral infarction affecting right dominant side; E11.40 Type 2 diabetes mellitus with diabetic neuropathy, unspecified; E11.65 Type 2 diabetes mellitus with hyperglycemia; E78.5 Hyperlipidemia, unspecified; F32.9 Major depressive disorder, single episode, unspecified; F41.9 Anxiety disorder, unspecified; I10 Essential (primary) hypertension; K21.9 Gastro-esophageal reflux disease without esophagitis; K58.9 Irritable bowel syndrome, unspecified; R47.02 Dysphasia; Z79.51 Long term (current) use of inhaled steroids; Z79.899 Other long term (current) drug therapy; Z86.010 Personal history of colon polyps; Z86.14 Personal history of Methicillin resistant Staphylococcus aureus infection; Z86.711 Personal history of pulmonary embolism; Z87.01 Personal history of pneumonia (recurrent); Z88.1 Allergy status to other antibiotic agents; Z91.19 Patient's noncompliance with other medical treatment and regimen; Z93.1 Gastrostomy status; Z99.81 Dependence on supplemental oxygen; Z98.41 Cataract extraction status, right eye; Z98.42 Cataract extraction status, left eye; Z90.49 Acquired absence of other specified parts of digestive tract; Z98.1 Arthrodesis status; Z79.4 Long term (current) use of insulin; Z88.7 Allergy status to serum and vaccine; Z88.8 Allergy status to other drugs, medicaments and biological substances; I69.391 Dysphagia following cerebral infarction
CPT/HCPCS: 31624; 31645; 36415; 71046; 74230; 80048; 80053; 80061; 80202; 82550; 82553; 82565; 83036; 83605; 83735; 84484; 85025; 85610; 85730; 87040; 87070; 87077; 87102; 87116; 87186; 87205; 87206; 89050; 93005; 93306; 94640; 96365; 96376; 99291

== ENCOUNTER 2018-06-26 12:32 | Emergency (ER) | payer OTHER ==
[2018-06-26 12:52] VITALS: RESP 18
[2018-06-26] MEDS ORDERED: SODIUM CHLORIDE 0.9% 1,000 ML IV STA (13:15)
[2018-06-26] MEDS ORDERED: MECLIZINE 12.5 MG TAB PO STA (13:15)
--- NOTE | 2018-06-26 13:18 | ED ---
General Adult HPI - General Chief complaint: Fall Stated complaint: fell & hit head Time Seen by Provider: 06/26/18 13:04 Source: patient, RN notes reviewed Mode of arrival: wheelchair Limitations: no limitations - History of Present Illness Initial comments: Patient 53-year-old male presenting to the emergency room today with a chief complaint of syncopal episode. Patient does admit that he was walking out of the hospital after speech therapy and became dizzy lightheaded and fell down. Patient states that he was able to get up. He states soon as he falls he wakes right back up. He states that he had a second syncopal episode as well. He does admit that is had multiple episodes similar to this in the past. He states he was recently admitted here to the hospital and saw cardiology. Patient denies any dizziness lightheaded at this time. He does admit that he did hit his head. States there is small bump. Denies any other complaints. He does admit that he is on oxygen 2 L at home. States that they're supposed to bring him more oxygen 4 hours home. Patient denies any shortness breath at this time. He denies any other complaints. - Related Data Home Medications Medication Instructions Recorded Confirmed Simvastatin [Zocor] 40 mg PO HS 10/13/16 06/26/18 Omeprazole 40 mg PO BID 06/13/17 06/26/18 Insulin Aspart [NovoLOG] See Protocol SQ AC-TID PRN 09/19/17 06/26/18 Ranitidine HCl [Zantac] 300 mg PO DAILY 10/25/17 06/26/18 EPINEPHrine (Auto Inject) [Epipen] 0.3 mg IM ONCE PRN 12/25/17 06/26/18 Pioglitazone [Actos] 30 mg PO DAILY 03/28/18 06/26/18 Albuterol Inhaler [Ventolin Hfa 1 - 2 puff INHALATION RT-Q6H PRN 04/26/18 Inhaler] Escitalopram [Lexapro] 20 mg PO DAILY 04/26/18 06/26/18 Gabapentin 600 mg PO QID 04/26/18 06/26/18 Insulin Glargine,Hum.rec.anlog 15 unit SQ HS 04/26/18 06/26/18 [Basagltessy Alcocerpen U-100] traZODone HCL [Desyrel] 100 mg PO HS 04/26/18 06/26/18 Cyclobenzaprine [Flexeril] 10 mg PO TID PRN 05/27/18 06/26/18 Budesonide/Formoterol Fumarate 1 puff INHALATION RT-BID 06/18/18 06/26/18 [Symbicort 160-4.5 Mcg Inhaler] Previous Rx's Medication Instructions Recorded Aspirin 325 mg PO DAILY #30 tab 06/21/18 Metoprolol Tartrate [Lopressor] 50 mg PO BID #60 tab 06/21/18 Allergies Allergy/AdvReac Type Severity Reaction Status Date / Time venom-honey bee Allergy Anaphylaxis Verified 06/26/18 13:25 [bee venom (honey bee)] metformin AdvReac Diarrhea Verified 06/26/18 13:25 vancomycin AdvReac kidneys Verified 06/26/18 13:25 shut down Review of Systems ROS Statement: Those systems with pertinent positive or pertinent negative responses have been documented in the HPI. ROS Other: All systems not noted in ROS Statement are negative. Past Medical History Past Medical History: Chest Pain / Angina, CVA/TIA, Diabetes Mellitus, Deep Vein Thrombosis (DVT), GERD/Reflux, Hyperlipidemia, Hypertension, Musculoskeletal Disorder, Pneumonia, Pulmonary Embolus (PE), Syncope Additional Past Medical History / Comment(s): CVA (06/2016), RIGHT SIDED WEAKNESS, HAS PEG TUBE WITH GLUCERNA 2.5 -TAKES 5 CANS DAILY. Purred foods. HX OF ASPIRATION PNEUMONIA, LUMBAR STENOSIS. , HX IBS. COLON POLYPS, CATARACTS, RIGHT SIDE OF BODY IS TEMPERATURE INTOLERANT. , NEUROPATHY OF HANDS & FEET, HAND TREMORS., BACK PAIN. History of Any Multi-Drug Resistant Organisms: MRSA Date of last positivie culture/infection: 06/21/18 MDRO Source:: Bronch wash Past Surgical History: Appendectomy, Cholecystectomy, Heart Catheterization, Orthopedic Surgery Additional Past Surgical History / Comment(s): EXPLORATORY LAPAROTOMY, FUSION L4 -L5, COLONOSCOPY, PEG tube. , REPAIR HIATAL HERNIA, CARPAL TUNNEL SURG.bronchoscopy Past Anesthesia/Blood Transfusion Reactions: No Reported Reaction Additional Past Anesthesia/Blood Transfusion Reaction / Comment(s): COUGHS WHEN HE LIES FLAT Past Psychological History: Anxiety, Depression Smoking Status: Never smoker Past Alcohol Use History: None Reported Past Drug Use History: None Reported - Past Family History Father History Unknown: Yes Family Medical History: No Reported History Mother Family Medical History: Cancer, Pulmonary Embolus General Exam - General Exam Comments Initial Comments: General: The patient is awake and alert, in no distress, and does not appear acutely ill. Eye: Pupils are equal, round and reactive to light, extra-ocular movements are intact. No nystagmus. There is normal conjunctiva bilaterally. No signs of icterus. Ears, nose, mouth and throat: There are moist mucous membranes and no oral lesions. Neck: The neck is supple, there is no tenderness or JVD. Cardiovascular: There is a regular rate and rhythm. No murmur, rub or gallop is appreciated. Respiratory: Lungs are clear to auscultation, respirations are non-labored, breath sounds are equal. No wheezes, stridor, rales, or rhonchi. Musculoskeletal: Normal ROM, no tenderness. Strength 5/5. Sensation intact. Radial pulses equal bilaterally 2+. Neurological: A&O x 3. CN II-XII intact, There are no obvious motor or sensory deficits. Coordination appears grossly intact. Speech is normal. Skin: Skin is warm and dry and no rashes or lesions are noted. Psychiatric: Cooperative, appropriate mood & affect, normal judgment. Limitations: no limitations Course Vital Signs 06/26/18 06/26/18 06/26/18 12:47 13:25 13:30 Temperature 98.1 F Pulse Rate 82 Pulse Rate [ 71 Left Sitting] Pulse Rate [ 68 Left Standing] Pulse Rate [ 78 Left Supine] Respiratory 18 Rate Blood Pressure 88/56 111/75 Blood Pressure 91/64 [Sitting] Blood Pressure 68/49 [Standing] Blood Pressure 105/68 [Supine] O2 Sat by Pulse 88 L Oximetry 06/26/18 06/26/18 06/26/18 13:45 16:52 17:29 Temperature Pulse Rate 78 80 Pulse Rate [ 81 Left Sitting] Pulse Rate [ 83 Left Standing] Pulse Rate [ 80 Left Supine] Respiratory 18 18 Rate Blood Pressure 104/78 115/67 Blood Pressure 111/68 [Sitting] Blood Pressure 89/55 [Standing] Blood Pressure 112/70 [Supine] O2 Sat by Pulse 98 98 Oximetry Medical Decision Making - Medical Decision Making Patient's labs reviewed. He did have an elevated d-dimer. His pulse ox was 88 %. He is on oxygen at home. Pulse ox was on room air. Patient did have CT the chest showing CT reviewed and shows 1. No evidence of PE. 2. Left lower lobe pneumonia and right lobe airspace disease suspicious for a multifocal pneumonia. 3. Marked dilatation of the fluid and food filled esophagus throughout the chest up to the level of thyroid suspicious for stricture in a postsurgical site of the gastroesophageal junction. 4. Mediastinal adenopathy may be reactive. As read by the radiologist. Patient currently on antibiotics of Bactrim, Augmentin after recent admission for pneumonia. Patient has been orthostatic positive here. Was given a liter half fluids. Patient states he does not feel dizzy or lightheaded. He did have 2 syncopal episodes earlier today. Patient has been seen by cardiology recently. Patient's EKG shows no acute changes. It was discussed with patient that we would like to admit him for antibiotics for pneumonia also for syncopal and orthostatic positive. Patient states he will sign out AMA. Patient states he has antibiotics that he can take for the pneumonia. She will follow up with his family doctor along with Dr. Coronel. - Lab Data Result diagrams: 06/26/18 13:22 06/26/18 13:22 Lab Results 06/26/18 06/26/18 06/26/18 Range/Units 13:22 13:22 13:22 WBC 7.5 (3.8-10.6) k/uL RBC 4.19 L (4.30-5.90) m/uL Hgb 12.8 L (13.0-17.5) gm/dL Hct 40.8 (39.0-53.0) % MCV 97.2 (80.0-100.0) fL MCH 30.6 (25.0-35.0) pg MCHC 31.4 (31.0-37.0) g/dL RDW 14.4 (11.5-15.5) % Plt Count 234 (150-450) k/uL Neutrophils % 80 % Lymphocytes % 13 % Monocytes % 4 % Eosinophils % 1 % Basophils % 0 % Neutrophils # 6.1 (1.3-7.7) k/uL Lymphocytes # 0.9 L (1.0-4.8) k/uL Monocytes # 0.3 (0-1.0) k/uL Eosinophils # 0.1 (0-0.7) k/uL Basophils # 0.0 (0-0.2) k/uL Hypochromasia Slight PT (9.0-12.0) sec INR (<1.2) APTT (22.0-30.0) sec D-Dimer (<0.60) mg/L FEU Sodium 139 (137-145) mmol/L Potassium 4.6 (3.5-5.1) mmol/L Chloride 94 L (98-107) mmol/L Carbon Dioxide 38 H (22-30) mmol/L Anion Gap 7 mmol/L BUN 20 (9-20) mg/dL Creatinine 0.75 (0.66-1.25) mg/dL Est GFR (CKD-EPI)AfAm >90 (>60 ml/min/1.73 sqM) Est GFR (CKD-EPI)NonAf >90 (>60 ml/min/1.73 sqM) Glucose 154 H (74-99) mg/dL Calcium 9.0 (8.4-10.2) mg/dL Total Bilirubin 0.5 (0.2-1.3) mg/dL AST 17 (17-59) U/L ALT 14 L (21-72) U/L Alkaline Phosphatase 88 (38-126) U/L Total Creatine Kinase 22 L (55-170) U/L CK-MB (CK-2) 1.6 (0.0-2.4) ng/mL CK-MB (CK-2) Rel Index 7.3 Troponin I <0.012 (0.000-0.034) ng/mL Total Protein 7.2 (6.3-8.2) g/dL Albumin 3.3 L (3.5-5.0) g/dL Urine Color Urine Appearance (Clear) Urine pH (5.0-8.0) Ur Specific [place] (1.001-1.035) Urine Protein (Negative) Urine Glucose (UA) (Negative) Urine Ketones (Negative) Urine Blood (Negative) Urine Nitrite (Negative) Urine Bilirubin (Negative) Urine Urobilinogen (<2.0) mg/dL Ur Leukocyte Esterase (Negative) Urine RBC (0-5) /hpf Urine WBC (0-5) /hpf Hyaline Casts (0-2) /lpf Urine Mucus (None) /hpf 06/26/18 06/26/18 06/26/18 Range/Units 13:22 13:22 13:22 WBC (3.8-10.6) k/uL RBC (4.30-5.90) m/uL Hgb (13.0-17.5) gm/dL Hct (39.0-53.0) % MCV (80.0-100.0) fL MCH (25.0-35.0) pg MCHC (31.0-37.0) g/dL RDW (11.5-15.5) % Plt Count (150-450) k/uL Neutrophils % % Lymphocytes % % Monocytes % % Eosinophils % % Basophils % % Neutrophils # (1.3-7.7) k/uL Lymphocytes # (1.0-4.8) k/uL Monocytes # (0-1.0) k/uL Eosinophils # (0-0.7) k/uL Basophils # (0-0.2) k/uL Hypochromasia PT 9.8 (9.0-12.0) sec INR 0.9 (<1.2) APTT 25.2 (22.0-30.0) sec D-Dimer 0.61 H (<0.60) mg/L FEU Sodium (137-145) mmol/L Potassium (3.5-5.1) mmol/L Chloride (98-107) mmol/L Carbon Dioxide (22-30) mmol/L Anion Gap mmol/L BUN (9-20) mg/dL Creatinine (0.66-1.25) mg/dL Est GFR (CKD-EPI)AfAm (>60 ml/min/1.73 sqM) Est GFR (CKD-EPI)NonAf (>60 ml/min/1.73 sqM) Glucose (74-99) mg/dL Calcium (8.4-10.2) mg/dL Total Bilirubin (0.2-1.3) mg/dL AST (17-59) U/L ALT (21-72) U/L Alkaline Phosphatase (38-126) U/L Total Creatine Kinase (55-170) U/L CK-MB (CK-2) (0.0-2.4) ng/mL CK-MB (CK-2) Rel Index Troponin I (0.000-0.034) ng/mL Total Protein (6.3-8.2) g/dL Albumin (3.5-5.0) g/dL Urine Color Yellow Urine Appearance Clear (Clear) Urine pH 6.5 (5.0-8.0) Ur Specific [place] 1.019 (1.001-1.035) Urine Protein Trace H (Negative) Urine Glucose (UA) Negative (Negative) Urine Ketones Negative (Negative) Urine Blood Negative (Negative) Urine Nitrite Negative (Negative) Urine Bilirubin Negative (Negative) Urine Urobilinogen 2.0 (<2.0) mg/dL Ur Leukocyte Esterase Trace H (Negative) Urine RBC 5 (0-5) /hpf Urine WBC 5 (0-5) /hpf Hyaline Casts 10 H (0-2) /lpf Urine Mucus Rare H (None) /hpf Disposition Clinical Impression: Syncope, Orthostatic hypotension, Fall, Pneumonia Disposition: HOME SELF-CARE Condition: Good Instructions: Syncope (ED) Additional Instructions: Please follow-up the family physician over the next 2 days. Return here to the emergency room symptoms increase or worsen or for any other concerns. Is patient prescribed a controlled substance at d/c from ED?: No Referrals: Dasha Marsh MD [Primary Care Provider] - 1-2 days Time of Disposition: 17:40
[2018-06-26 13:56] LABS: Basophils % (A) 0 %; Eosinophils # (A) 0.1 k/uL (0-0.7); Eosinophils % (A) 1 %; HCT 40.8 % (39.0-53.0); HGB 12.8 gm/dL (13.0-17.5); Hypochromasia Slight; Lymphocytes # (A) 0.9 k/uL (1.0-4.8); Lymphocytes % (A) 13 %; MCH 30.6 pg (25.0-35.0); MCHC 31.4 g/dL (31.0-37.0); MCV 97.2 fL (80.0-100.0); Mean Platelet Volume 6.7; Monocytes # (A) 0.3 k/uL (0-1.0); Monocytes % (A) 4 %; Neutrophils # (A) 6.1 k/uL (1.3-7.7); Neutrophils % (A) 80 %; Platelet Count 234 k/uL (150-450); RBC 4.19 m/uL (4.30-5.90); RDW 14.4 % (11.5-15.5); WBC 7.5 k/uL (3.8-10.6)
[2018-06-26 14:03] LABS: INR 0.9 (<1.2); Partial Thromboplastin Time 25.2 sec (22.0-30.0); Prothrombin Time 9.8 sec (9.0-12.0)
[2018-06-26 14:05] LABS: Appearance,Urine Clear (Clear); Bilirubin,Urine Negative (Negative); Blood,Urine Negative (Negative); Color,Urine Yellow; Glucose,Urine (UA) Negative (Negative); Hyaline Casts,Urine 10 /lpf (0-2); Ketones,Urine Negative (Negative); Leukocyte Esterase,Urine Trace (Negative); Mucus,Urine Rare /hpf; Nitrite,Urine Negative (Negative); PH, Urine 6.5 (5.0-8.0); Protein,Urine Trace (Negative); RBC,Urine 5 /hpf (0-5); Specific Gravity,Urine 1.019 (1.001-1.035)
[2018-06-26 14:17] LABS: ALT 14 U/L (21-72); AST 17 U/L (17-59); Albumin 3.3 g/dL (3.5-5.0); Alkaline Phosphatase 88 U/L (38-126); Anion Gap 7 mmol/L; Blood Urea Nitrogen 20 mg/dL (9-20); Carbon Dioxide 38 mmol/L (22-30); Chloride 94 mmol/L (98-107); Glucose 154 mg/dL (74-99); Potassium 4.6 mmol/L (3.5-5.1); Sodium 139 mmol/L (137-145); Total Bilirubin 0.5 mg/dL (0.2-1.3); Total Protein 7.2 g/dL (6.3-8.2)
--- NOTE | 2018-06-26 14:18 | CT ---
EXAMINATION TYPE: CT brain cspine wo con DATE OF EXAM: 06/26/2018 COMPARISON: CT brain and cervical spine one month ago. HISTORY: Recent CVA, fell twice in parking lot with headache and neck pain CT DLP: 1442.6 mGycm. Automated Exposure Control for Dose Reduction was Utilized. TECHNIQUE: CT scan of the head and cervical spine are performed without contrast. FINDINGS: There is no acute intracranial hemorrhage, mass effect, or midline shift identified. Cav um septum pellucidum is redemonstrated. The ventricles and sulci are stable with mild prominence. Lo w-attenuation bilateral parietal white matter axial image 34 is redemonstrated nonspecific. The globe s are intact and the visualized sinuses are clear. The calvarium is intact. Cervical spine is visualized in its entirety from C1 through upper thoracic levels and demonstrates s table alignment with reversal of normal cervical curvature without evidence of acute fracture or disl ocation. Prevertebral soft tissue appears within normal limits. The C1-C2 articulation is within no rmal limits on the coronal images. Vertebral body heights are maintained. There is mild disc space n arrowing with mild to moderate spurring at C6-C7 level. Posterior spurring effacing anterior thecal s ac at this level similar to prior. Review of axial images shows multilevel right-sided uncovertebral facet degenerative changes. There is moderate calcified plaque bilateral carotid bulbs redemonstrated . Lung apices remain clear. There is partial visualization of dilated debris filled proximal esophagu s even more prominent versus most recent prior. Correlate clinically. IMPRESSION: 1. There is no acute fracture or dislocation evident in the cervical spine. 2. No acute intracranial hemorrhage or midline shift is seen.
[2018-06-26 14:24] LABS: Creatine Kinase 22 U/L (55-170)
[2018-06-26 14:36] LABS: Creatine Kinase MB 1.6 ng/mL (0.0-2.4); Troponin I <0.012 ng/mL (0.000-0.034)
[2018-06-26] MEDS ORDERED: SODIUM CHLORIDE 0.9% 500 ML 500 ML IV ONE (15:44)
--- NOTE | 2018-06-26 16:40 | CT ---
EXAMINATION TYPE: CT angio chest DATE OF EXAM: 06/26/2018 COMPARISON: NONE HISTORY: No chest complaints. Elevated D-Dimer. CT DLP: 283.5 mGycm. Automated Exposure Control for Dose Reduction was Utilized. CONTRAST: CTA scan of the thorax is performed with IV Contrast, patient injected with 100 mL of Isovue 370, pul monary embolism protocol. MIP Images are created on CT scanner and reviewed. FINDINGS: LUNGS: There is a new left basilar opacity with air bronchograms compatible with pneumonia. Scattered patchy reticular opacities are seen on the right also suggestive of pneumonia. There is a miliary no dular pattern throughout that could also be associated with atypical pneumonitis and could be further assessed with high-resolution chest CT after treatment. Linear lingular atelectasis and right middle lobe atelectasis are noted. MEDIASTINUM: There is satisfactory enhancement of the pulmonary artery and its branches, there is no CT evidence for pulmonary embolism. There is mediastinal adenopathy with right hilar adenopathy measu ring up to 1.9 cm in short axis. No cardiomegaly or pericardial effusion is seen. OTHER: The esophagus is dilated and contains fluid and debris up to the thyroid level, risk for aspir ation. There is postsurgical change at the gastroesophageal junction. Therefore stricture is possible . There is nonspecific sclerosis of the anterior margin of rib 6 on the left. Moderate multilevel deg enerative changes of the spine are noted. IMPRESSION: 1. No evidence of pulmonary embolism. 2. Left lower lobe consolidation compatible with pneumonia and right lower lobe airspace disease susp icious for multifocal pneumonia. Additional miliary nodular pattern throughout the lungs could be on the basis of atypical Pneumonitis and can be further assessed with high-resolution chest CT after treatment. 3. Marked dilatation of the fluid and food filled esophagus throughout the chest up to the level of t he thyroid suspicious for stricture at the postsurgical site of the gastroesophageal junction. Patien t is at risk for aspiration. Left lower lobe consolidation could be on the basis of aspiration pneumo jass. 4. Mediastinal adenopathy may be reactive to the above discussed infections etiologies.
[2018-06-26 16:53] VITALS: PULSE 80
[2018-06-26] MEDS ORDERED: PIPERACILLIN-TAZOBACTAM 3.375 GM in SODIUM CHLORIDE 0.9% 100 ML IVPB STA (16:58)
[2018-06-26] MEDS ORDERED: LEVOFLOXACIN 750MG-D5W PMX 750 MG in DEXTROSE/WATER 1 150ML.BAG IVPB STA (16:58)
[2018-06-26] MEDS ORDERED: PNEUMONIA PROTOCOL UTILIZED 1 EACH MISC PO PRN (16:58)
[2018-06-26] MEDS ORDERED: SODIUM CHLORIDE 0.9% 1,000 ML IV SCH (17:00)
[2018-06-26 17:49] VITALS: BP 112/75; TEMP 98
[2018-06-27] MEDS ORDERED: PIPERACILLIN-TAZOBACTAM 3.375 GM in SODIUM CHLORIDE 0.9% 100 ML IVPB SCH ×2
[2018-06-27] MEDS ORDERED: LEVOFLOXACIN 750MG-D5W PMX 750 MG in DEXTROSE/WATER 1 150ML.BAG IVPB SCH (17:00)
== END 2018-06-26 17:48 | disposition home or self-care (01) ==
LOC: EC 12:32
DX: I95.1 Orthostatic hypotension (principal); J18.1 Lobar pneumonia, unspecified organism; R79.1 Abnormal coagulation profile; R93.89 Abnormal findings on diagnostic imaging of other specified body structures; E78.5 Hyperlipidemia, unspecified; I10 Essential (primary) hypertension; E11.42 Type 2 diabetes mellitus with diabetic polyneuropathy; I69.351 Hemiplegia and hemiparesis following cerebral infarction affecting right dominant side; K21.9 Gastro-esophageal reflux disease without esophagitis; F32.9 Major depressive disorder, single episode, unspecified; F41.9 Anxiety disorder, unspecified; Z83.6 Family history of other diseases of the respiratory system; Z88.1 Allergy status to other antibiotic agents; Z88.8 Allergy status to other drugs, medicaments and biological substances; Z91.030 Bee allergy status; Z79.4 Long term (current) use of insulin; Z79.51 Long term (current) use of inhaled steroids; Z79.899 Other long term (current) drug therapy; Z99.81 Dependence on supplemental oxygen; Z86.711 Personal history of pulmonary embolism; Z98.890 Other specified postprocedural states; Z95.818 Presence of other cardiac implants and grafts; W01.0XXA Fall on same level from slipping, tripping and stumbling without subsequent striking against object, initial encounter; Y93.01 Activity, walking, marching and hiking; Y92.481 Parking lot as the place of occurrence of the external cause
CPT/HCPCS: 36415; 93005; 85379; 80053; 82550; 82553; 84484; 85025; 85610; 85730; 81001; 72125; 70450; 71275; 99284; 96360; 96361; Q9967